=== PATIENT | female | born 1955 | race Caucasian/White ===

== ENCOUNTER → 2020-02-11 12:53 | Outpatient (CLI) | payer MEDICARE, SELFPAY ==
--- NOTE | 2020-02-11 13:00 | XR_ITS ---
PROCEDURE: XR FOOT WT BEARING LT 3V CLINICAL INDICATION: pain COMPARISON: No exams were available for comparison FINDINGS: No fracture or dislocation. No lytic or blastic change. There is normal mineralization. The joint spaces are well-preserved. No significant degenerative/arthritic changes. No erosive changes evident. Other findings:None. IMPRESSION: 1. No acute findings. Unremarkable exam Dictated by: Ajith English 02/11/2020 13:45 Electronically signed by Ajith English in [place] 02/11/2020 13:45
--- NOTE | 2020-02-11 13:00 | XR_ITS ---
PROCEDURE: XR FOOT WT BEARING RT 3V CLINICAL INDICATION: Pain COMPARISON: No exams were available for comparison FINDINGS: Bones: No fracture or dislocation. No lytic or blastic change. There is normal mineralization. Joints: The joint spaces are well-preserved. No significant degenerative/arthritic changes. No erosive changes evident. Other findings:None. IMPRESSION: Normal x-ray exam of the right foot for the patient's age. Dictated by: Ajith English 02/11/2020 13:43 Electronically signed by Ajith English in [facility] 02/11/2020 13:43
== END ==
PROVIDERS: PCP Family Medicine; Visit Provider Podiatrist
DX: M79.672 Pain in left foot (principal); M79.671 Pain in right foot
CPT/HCPCS: 73630

== ENCOUNTER → 2020-02-11 18:51 | Outpatient (CLI) | payer MEDICARE, SELFPAY | PROVIDERS: Visit Provider Podiatrist | DX: S90.851A Superficial foreign body, right foot, initial encounter (principal) | CPT/HCPCS: 87070; 87077; 87186; 87205 ==

== ENCOUNTER → 2020-03-31 14:48 | Outpatient (CLI) | payer MEDICARE, SELFPAY ==
[2020-03-31 14:58] LABS: Basophils # 0.1 K/mm3 (0-0.2); Basophils % 0.4 % (0.1-2.0); Eosinophils # 0.1 K/mm3 (0.0-0.4); Eosinophils % 1.3 % (0.1-12.0); Hematocrit 42.2 % (37.0-47.0); Lymphocytes # 2.2 K/mm3 (0.7-4.5); Lymphocytes % 20.8 % (10-50); Mean Corpuscular HGB Conc 33.2 g/dL (31.8-35.4); Mean Corpuscular Hemoglobin 32.6 pg (27.0-31.2); Mean Corpuscular Volume 98.4 fl (81-99); Monocytes # 0.7 K/mm3 (0.1-1.0); Monocytes % 6.8 % (1.7-9.3); Neutrophils # 7.6 K/mm3 (1.8-7.8); Neutrophils % 70.7 % (37.0-80.0); Platelet Count 245 K/mm3 (142-424); Red Blood Count 4.28 M/mm3 (4.20-5.40); Red Cell Distribution Width 13.7 % (11.5-17.5); White Blood Count 10.7 K/mm3 (4.8-10.8)
[2020-03-31 15:01] LABS: Chloride 106 mmol/L (98-107); Potassium 4.5 mmoL/L (3.5-5.1); Sodium 140 mmol/L (136-145)
[2020-03-31 15:03] LABS: Blood Urea Nitrogen 16 mg/dl (7-17); Estimated Glomerular Filt Rate 45 ml/min (>60); GFR (African American) 55 ML/MIN (>60)
[2020-03-31 15:04] LABS: Alanine Aminotransferase 15 U/L (12-78); Albumin Level 4.2 g/dl (3.5-5.0); Albumin/Globulin Ratio 1.4 (1.1-1.8); Alkaline Phosphatase 85 U/L (38-126); Anion Gap 14.5 mEq/L (5-15); Aspartate Amino Transferase 27 U/L (14-36); Bilirubin,Total 0.5 mg/dl (0.2-1.3); Carbon Dioxide 24 mmol/L (22.0-30.0); Chol/HDL Ratio 2.2 (1-3.5); Cholesterol 177 mg/dl (140-200); Glucose 111 mg/dl (74-100); HDL Cholesterol 79 mg/dl (40-60); Total Protein,Serum 7.2 g/dl (6.3-8.2); Triglycerides 125 mg/dl (30-150); VLDL Cholesterol 25 mg/dL (0-40)
[2020-03-31 15:15] LABS: Direct LDL Cholesterol 68.57 mg/dL (100-129)
[2020-03-31 15:21] LABS: 25-OH Vitamin D, Total 16.4 ng/mL (30-100); Free T4 (Free Thyroxine) 0.48 ng/dl (0.78-2.19)
[2020-03-31 15:34] LABS: Erythrocyte Sedimentation Rate 23 mm/hr (0-30)
[2020-04-02 09:19] LABS: Thyroid Peroxidase Antibodies 353 IU/mL (0-34)
== END ==
PROVIDERS: Visit Provider Emergency Medicine
DX: E03.9 Hypothyroidism, unspecified (principal); E55.9 Vitamin D deficiency, unspecified
CPT/HCPCS: 80053; 80061; 82306; 84439; 84443; 85025; 85651; 86376

== ENCOUNTER → 2020-04-18 11:24 | Outpatient (CLI) | payer MEDICARE, SELFPAY ==
--- NOTE | 2020-04-18 11:24 | US_ITS ---
PROCEDURE: US THYROID CLINICAL INDICATION: hypothyroid COMPARISON: No exams were available for comparison FINDINGS: Right lobe: 1.6cm x 3.0cm x 1.2cm Left lobe: 0.9cm x 2.1cm x 1.2cm Isthmus: Unremarkable Additional findings: The thyroid gland has heterogeneous echogenicity bilaterally. No dominant mass apparent. There is a questionable 5 mm hypoechoic nodule in the lower pole on the right but may be related to the diffuse heterogeneous echogenicity. Not demonstrated well in the sagittal plane. IMPRESSION: Heterogeneous echogenicity of the thyroid bilaterally with a small thyroid gland on both sides. Questionable 5 mm nodule in the right. Stability may be confirmed with six-month follow-up. Dictated by: Julio Simon MD 04/20/2020 09:24 Julio Simon MD in [facility] 04/20/2020 09:24
== END ==
PROVIDERS: PCP Emergency Medicine; Visit Provider Emergency Medicine
DX: E03.9 Hypothyroidism, unspecified (principal)
CPT/HCPCS: 76536

== ENCOUNTER → 2020-04-29 17:14 | Outpatient (CLI) | payer MEDICARE, SELFPAY | PROVIDERS: Visit Provider Podiatrist | DX: L57.0 Actinic keratosis (principal); S90.851D Superficial foreign body, right foot, subsequent encounter | CPT/HCPCS: 87070; 87077; 87186; 87205 ==

== ENCOUNTER → 2020-05-13 17:54 | Outpatient (CLI) | payer MEDICARE, SELFPAY ==
[2020-05-13 19:49] LABS: Thyroid Stimulating Hormone 0.39 uIU/mL (0.465-4.68)
== END ==
PROVIDERS: Visit Provider Emergency Medicine
DX: E78.5 Hyperlipidemia, unspecified (principal); Z79.899 Other long term (current) drug therapy
CPT/HCPCS: 84439; 84443

== ENCOUNTER → 2020-05-16 14:15 | Outpatient (CLI) | payer MEDICARE, SELFPAY ==
--- NOTE | 2020-05-16 14:22 | XR_ITS ---
PROCEDURE: XR SHOULDER RT MIN 2V CLINICAL INDICATION: RT shoulder pain COMPARISON: No exams were available for comparison FINDINGS: No fracture or dislocation. No lytic or blastic change. There is normal mineralization. The joint spaces are well-preserved. No significant degenerative/arthritic changes. No erosive changes evident. Other findings:None. IMPRESSION: No acute findings. Dictated by: Julio Simon MD 05/16/2020 15:19 Julio Simon MD in [facility] 05/16/2020 15:19
== END ==
PROVIDERS: PCP Emergency Medicine; Visit Provider Orthopaedic Surgery
DX: M25.511 Pain in right shoulder (principal)
CPT/HCPCS: 73030

== ENCOUNTER → 2020-05-19 14:24 | Outpatient (CLI) | payer MEDICARE, SELFPAY ==
--- NOTE | 2020-05-19 14:29 | US_ITS ---
PROCEDURE: US EXTREMITY RT LIMITED CLINICAL INDICATION: evaluate presence of foreign body COMPARISON: No exams were available for comparison FINDINGS: There is some soft tissue thickening however, no radiopaque foreign body or fluid collection is evident. IMPRESSION: Mild soft tissue thickening otherwise negative Dictated by: Julio Simon MD 05/19/2020 18:17 Julio Simon MD in [facility] 05/19/2020 18:17
== END ==
PROVIDERS: PCP Emergency Medicine; Visit Provider Podiatrist
DX: S90.851A Superficial foreign body, right foot, initial encounter (principal)
CPT/HCPCS: 76882

== ENCOUNTER → 2020-09-23 17:14 | Outpatient (CLI) | payer MEDICARE, SELFPAY ==
[2020-09-23 20:29] LABS: Benzodiazepines Screen,Urine Negative ng/ml (<200)
[2020-09-23 20:30] LABS: Amphetamine/Metha Screen,Urine Negative ng/ml (<1000); Barbiturates Screen,Urine Negative ng/ml (<200)
[2020-09-23 20:31] LABS: Cannabinoid Screen,Urine Negative ng/ml (<50)
[2020-09-23 20:32] LABS: Cocaine Screen,Urine Negative ng/ml (<300); Methadone Screen,Urine Negative ng/ml (<300)
[2020-09-23 20:33] LABS: Opiate Screen,Urine Negative ng/ml (<300); Phencyclidine Screen,Urine Negative ng/ml (<25)
== END ==
PROVIDERS: Visit Provider Emergency Medicine
DX: M54.2 Cervicalgia (principal); Z79.899 Other long term (current) drug therapy
CPT/HCPCS: 80305

== ENCOUNTER → 2020-11-12 14:43 | Outpatient (CLI) | payer MEDICARE, SELFPAY ==
--- NOTE | 2020-11-12 14:43 | US_ITS ---
PROCEDURE: US THYROID CLINICAL INDICATION: 6 mth f/u COMPARISON: US US THYROID from 04/18/2020 FINDINGS: The right lobe of the thyroid gland measures 2.5 x 1.3 x 1.2 cm. There is heterogeneous echogenicity. An oval 5 x 2 mm isoechoic nodules present along the lower pole unchanged. The left lobe is 2.1 x 0.8 x 1.1 cm with heterogeneous echogenicity. IMPRESSION: Stable appearance of the thyroid gland. No change small right-sided thyroid nodule Dictated by: Julio Simon MD 11/12/2020 15:45 Julio Simon MD in [facility] 11/12/2020 15:45
== END ==
PROVIDERS: PCP Emergency Medicine; Visit Provider Emergency Medicine
DX: E04.1 Nontoxic single thyroid nodule (principal)
CPT/HCPCS: 76536

== ENCOUNTER → 2020-11-18 17:31 | Outpatient (CLI) | payer MEDICARE, SELFPAY ==
[2020-11-18 18:19] LABS: Barbiturates Screen,Urine Negative ng/ml (<200)
[2020-11-18 18:20] LABS: Amphetamine/Metha Screen,Urine Negative ng/ml (<1000); Benzodiazepines Screen,Urine Negative ng/ml (<200)
[2020-11-18 18:21] LABS: Cocaine Screen,Urine Negative ng/ml (<300); Methadone Screen,Urine Negative ng/ml (<300)
[2020-11-18 18:22] LABS: Cannabinoid Screen,Urine Positive ng/ml (<50)
[2020-11-18 18:23] LABS: Opiate Screen,Urine Negative ng/ml (<300); Phencyclidine Screen,Urine Negative ng/ml (<25)
== END ==
PROVIDERS: Visit Provider Emergency Medicine
DX: Z79.899 Other long term (current) drug therapy (principal)
CPT/HCPCS: 80305

== ENCOUNTER → 2021-01-13 17:25 | Outpatient (CLI) | payer MEDICARE, SELFPAY ==
[2021-01-13 19:18] LABS: Opiate Screen,Urine Positive ng/ml (<300)
[2021-01-13 19:19] LABS: Phencyclidine Screen,Urine Negative ng/ml (<25)
[2021-01-13 19:38] LABS: Amphetamine/Metha Screen,Urine Negative ng/ml (<1000)
[2021-01-13 19:39] LABS: Barbiturates Screen,Urine Negative ng/ml (<200); Benzodiazepines Screen,Urine Negative ng/ml (<200)
[2021-01-13 19:40] LABS: Cannabinoid Screen,Urine Positive ng/ml (<50)
[2021-01-13 19:41] LABS: Cocaine Screen,Urine Negative ng/ml (<300)
[2021-01-13 19:42] LABS: Methadone Screen,Urine Negative ng/ml (<300)
== END ==
PROVIDERS: Visit Provider Emergency Medicine
DX: Z79.899 Other long term (current) drug therapy (principal)
CPT/HCPCS: 80305

== ENCOUNTER → 2021-03-10 17:16 | Outpatient (CLI) | payer MEDICARE, SELFPAY ==
[2021-03-10 19:38] LABS: Amphetamine/Metha Screen,Urine Negative ng/ml (<1000)
[2021-03-10 19:39] LABS: Barbiturates Screen,Urine Negative ng/ml (<200); Benzodiazepines Screen,Urine Negative ng/ml (<200)
[2021-03-10 19:40] LABS: Cannabinoid Screen,Urine Positive ng/ml (<50)
[2021-03-10 19:41] LABS: Methadone Screen,Urine Negative ng/ml (<300)
[2021-03-10 20:38] LABS: Opiate Screen,Urine Positive ng/ml (<300); Phencyclidine Screen,Urine Negative ng/ml (<25)
[2021-03-10 20:39] LABS: Cocaine Screen,Urine Negative ng/ml (<300)
== END ==
PROVIDERS: Visit Provider Emergency Medicine
DX: Z79.899 Other long term (current) drug therapy (principal)
CPT/HCPCS: 80305

== ENCOUNTER 2021-05-03 13:20 | Emergency (ER) | payer MEDICARE, SELFPAY ==
[2021-05-03 13:23] VITALS: BP 171/89; PULSE 81; RESP 17; TEMP 36.9; O2SAT 91
--- NOTE | 2021-05-03 13:55 | PC.NURSE ---
pt came into ER via EMS pt had snorted a percocet 30mg while in the car with her adult son pt received nasal an IV narcan from EMS pt awake and alert and oriented , while in the ER pt drowsy but easily awakened. o2 sats were 90% on RA o2 @ 2LPM via cannula o2 sat increased to 98%. after approx 30 min o2 removed and maintaining at 95%. pt is sitting up eating lunch
[2021-05-03 14:24] LABS: Basophils # 0.1 K/mm3 (0-0.2); Basophils % 0.6 % (0.1-2.0); Eosinophils # 0.2 K/mm3 (0.0-0.4); Eosinophils % 1.5 % (0.1-12.0); Hematocrit 43.6 % (37.0-47.0); Hemoglobin 13.8 g/dL (12.2-16.2); Lymphocytes # 1.6 K/mm3 (0.7-4.5); Mean Corpuscular HGB Conc 31.7 g/dL (31.8-35.4); Mean Corpuscular Hemoglobin 31.9 pg (27.0-31.2); Mean Corpuscular Volume 100.8 fl (81-99); Mean Platelet Volume 8.2 fl (7.4-10.4); Monocytes % 6.5 % (1.7-9.3); Neutrophils # 11.8 K/mm3 (1.8-7.8); Neutrophils % 80.5 % (37.0-80.0); Platelet Count 283 K/mm3 (142-424); Red Blood Count 4.33 M/mm3 (4.20-5.40); Red Cell Distribution Width 13.3 % (11.5-17.5); White Blood Count 14.6 K/mm3 (4.8-10.8)
[2021-05-03 14:32] LABS: Anion Gap 13.2 mEq/L (5-15); Blood Urea Nitrogen 20 mg/dl (7-17); Calcium 9.1 mg/dl (8.4-10.2); Carbon Dioxide 26 mmol/L (22.0-30.0); Chloride 107 mmol/L (98-107); Creatinine Clearance Estimated 50 mL/min (50-200); Estimated Glomerular Filt Rate 38 ml/min (>60); GFR (African American) 46 ML/MIN (>60); Glucose 105 mg/dl (74-100); Potassium 5.2 mmoL/L (3.5-5.1); Sodium 141 mmol/L (136-145)
[2021-05-03 14:36] LABS: Acetaminophen < 10 ug/ml (10-30); Salicylate < 1.0 mg/dL (2.0-20.0)
--- NOTE | 2021-05-03 15:42 | HMH.EDGENADL ---
ED Disposition Clinical Impression: Overweight (BMI 25.0-29.9) Overdose of analgesic Qualifiers: Encounter type: initial encounter Injury intent: accidental or unintentional Qualified Code(s): T39.91XA - Poisoning by unspecified nonopioid analgesic, antipyretic and antirheumatic, accidental (unintentional), initial encounter Drug overdose Qualifiers: Encounter type: initial encounter Injury intent: accidental or unintentional Qualified Code(s): T50.901A - Poisoning by unspecified drugs, medicaments and biological substances, accidental (unintentional), initial encounter Hyperlipidemia Qualifiers: Hyperlipidemia type: moderate mixed hyperlipidemia not requiring statin therapy Qualified Code(s): E78.2 - Mixed hyperlipidemia Hypothyroidism Qualifiers: Hypothyroidism type: acquired Qualified Code(s): E03.9 - Hypothyroidism, unspecified Acute cystitis Qualifiers: Hematuria presence: without hematuria Qualified Code(s): N30.00 - Acute cystitis without hematuria Disposition: Home, Self-Care Condition on Discharge: Good Additional Instructions: Please follow up with your primary care physician in 2-3 days for further management. Use your macrobid for uti. Please avoid using any other illicit substances. Please return to the ED for any concerning symptoms such as difficulty breathing, chest pain, heart palpitations, jitteriness or any other concerning symptoms. Prescriptions: Nitrofurantoin Monohyd/M-Cryst [Macrobid 100 mg Capsule] 100 mg PO DAILY #14 cap Transmission Status: Received by [facility] Referrals: Provider,Referral, [Primary Care Provider] - Time of Disposition: 15:25 - Critical Care Critical Care Time: Yes Attestation: On 05/03/21, the high probability of a clinically significant, sudden or life threatening deterioration of the following system(s) required my full and direct attention, intervention and personal management. The time I documented below is in addition to time spent performing reported procedures but includes the following listed in this critical care notation. Total Critical Care Time: 3 Vital system(s) involved:: Respiratory Failure My critical care processes included: Assessment & monitoring of V/S, Initial and Re-exams, Data Review/Interpretation, Coordinating Care, Medication Orders and management, Documentation Medical Decision Making - Medical Records Medical records reviewed: Yes: I reviewed the patient's medical records. - Herb Inquiry Pt receiving controlled substance: No Vital Signs: 05/03/21 13:23 05/03/21 16:40 Temperature 98.4 F 98.2 F Temperature Source Oral Oral Pulse Rate 67 Pulse Rate [Right Radial] 81 Respiratory Rate 17 17 Blood Pressure 120/67 Blood Pressure [Right Arm] 171/89 H Blood Pressure Mean [Right Arm] 116 Blood Pressure Source Automatic Cuff Blood Pressure Source [Right Arm] Automatic Cuff Blood Pressure Position Sitting Blood Pressure Position [Right Arm] Supine 02 Sat by Pulse Oximetry 91 L Oxygen Delivery Method Room Air Room Air - Lab Data Lab results reviewed: Yes: I reviewed the patient's lab results. Lab Results 05/03/21 14:10: WBC 14.6 H, RBC 4.33, Hgb 13.8, Hct 43.6, MCV 100.8 H, MCH 31.9 H, MCHC 31.7 L, RDW 13.3, Plt Count 283, MPV 8.2, Neut % (Auto) 80.5 H, Lymph % (Auto) 11.0, Caroline % (Auto) 6.5, Eos % (Auto) 1.5, Baso % (Auto) 0.6, Neut # (Auto) 11.8 H, Lymph # (Auto) 1.6, Caroline # (Auto) 1.0, Eos # (Auto) 0.2, Baso # (Auto) 0.1 05/03/21 14:10: Sodium 141, Potassium 5.2 H, Chloride 107, Carbon Dioxide 26, Anion Gap 13.2, BUN 20 H, Creatinine 1.40 H, Estimated Creat Clear 50, Estimated GFR 38 L, Est GFR ( Amer) 46 L, Glucose 105 H, Calcium 9.1, Salicylates < 1.0 L, Acetaminophen < 10 L 05/03/21 15:50: Urine Opiates Screen Negative, Urine Methadone Screen Negative, Ur Barbituates Screen Negative, Ur Phencyclidine Scrn Negative, Ur Amphetamines Screen Negative, U Benzodiazepines Scrn Positive H, Urine Cocaine Scr
[2021-05-03 15:59] LABS: Microscopic, Urine URINE MICROSCOPIC (MICROSCOPIC)
[2021-05-03 16:01] LABS: Appearance,Urine CLOUDY (Clear); Bilirubin,Urine Negative (Negative); Blood, Urine TRACE-I (Negative); Color,Urine YELLOW (Yellow); Glucose,Urine (UA) Negative (Negative); Ketones,Urine Negative (Negative); Leukocyte Esterase,Urine 1+ (Negative); Nitrate,Urine Negative (Negative); Protein,Urine 3+ (Negative); Specific Gravity, Urine 1.025 (1.005-1.030); Urobilinogen,Urine 0.2 EU/dl (0.2)
[2021-05-03 16:11] LABS: WBC,Urine 20-50 #/hpf (0-3)
[2021-05-03 16:12] LABS: Bacteria,Urine 4+ /lpf
[2021-05-03 16:18] LABS: Amphetamine/Metha Screen,Urine Negative ng/ml (<1000); Benzodiazepines Screen,Urine Positive ng/ml (<200)
[2021-05-03 16:19] LABS: Barbiturates Screen,Urine Negative ng/ml (<200); Cannabinoid Screen,Urine Positive ng/ml (<50)
[2021-05-03 16:20] LABS: Cocaine Screen,Urine Negative ng/ml (<300)
[2021-05-03 16:21] LABS: Methadone Screen,Urine Negative ng/ml (<300); Opiate Screen,Urine Negative ng/ml (<300)
[2021-05-03 16:22] LABS: Phencyclidine Screen,Urine Negative ng/ml (<25)
[2021-05-03 16:40] VITALS: BP 120/67; PULSE 67; RESP 17; TEMP 36.8; O2SAT 94
== END 2021-05-03 16:40 | disposition home or self-care (01) ==
PROVIDERS: Emergency Provider Student in an Organized Health Care Education/Training Program
DX: H66.92 Otitis media, unspecified, left ear (principal); Z79.899 Other long term (current) drug therapy
CPT/HCPCS: 80048; 80305; 80329; 81001; 85025; 87086; 87088; 87186; 99283

== ENCOUNTER → 2021-05-04 18:40 | Outpatient (CLI) | payer MEDICARE, SELFPAY ==
[2021-05-04 20:12] LABS: Basophils # 0.1 K/mm3 (0-0.2); Basophils % 0.6 % (0.1-2.0); Eosinophils # 0.4 K/mm3 (0.0-0.4); Eosinophils % 4.5 % (0.1-12.0); Hematocrit 46.4 % (37.0-47.0); Hemoglobin 14.3 g/dL (12.2-16.2); Lymphocytes # 2.4 K/mm3 (0.7-4.5); Lymphocytes % 26.4 % (10-50); Mean Corpuscular HGB Conc 30.8 g/dL (31.8-35.4); Mean Corpuscular Hemoglobin 31.9 pg (27.0-31.2); Mean Corpuscular Volume 103.4 fl (81-99); Mean Platelet Volume 8.7 fl (7.4-10.4); Monocytes # 0.8 K/mm3 (0.1-1.0); Monocytes % 9.4 % (1.7-9.3); Neutrophils # 5.3 K/mm3 (1.8-7.8); Neutrophils % 59.2 % (37.0-80.0); Platelet Count 268 K/mm3 (142-424); Red Blood Count 4.48 M/mm3 (4.20-5.40)
[2021-05-04 20:32] LABS: Alanine Aminotransferase 10 U/L (12-78); Albumin Level 3.8 g/dl (3.5-5.0); Albumin/Globulin Ratio 1.2 (1.1-1.8); Alkaline Phosphatase 99 U/L (38-126); Anion Gap 11.7 mEq/L (5-15); Aspartate Amino Transferase 21 U/L (14-36); Bilirubin,Total 0.2 mg/dl (0.2-1.3); Blood Urea Nitrogen 14 mg/dl (7-17); Calcium 9.6 mg/dl (8.4-10.2); Carbon Dioxide 28 mmol/L (22.0-30.0); Chloride 105 mmol/L (98-107); Chol/HDL Ratio 3.1 (1-3.5); Cholesterol 145 mg/dl (140-200); Estimated Glomerular Filt Rate 45 ml/min (>60); GFR (African American) 55 ML/MIN (>60); Globulin 3.2 g/dL (1.3-3.2); Glucose 103 mg/dl (74-100); HDL Cholesterol 47 mg/dl (40-60); Potassium 4.7 mmoL/L (3.5-5.1); Sodium 140 mmol/L (136-145); Triglycerides 194 mg/dl (30-150); VLDL Cholesterol 39 mg/dL (0-40)
[2021-05-04 20:43] LABS: Direct LDL Cholesterol 54.93 mg/dL (100-129)
[2021-05-04 20:48] LABS: Free T4 (Free Thyroxine) 2.12 ng/dl (0.78-2.19)
[2021-05-04 20:57] LABS: Amphetamine/Metha Screen,Urine Negative ng/ml (<1000)
[2021-05-04 20:58] LABS: Barbiturates Screen,Urine Negative ng/ml (<200); Cannabinoid Screen,Urine Positive ng/ml (<50)
[2021-05-04 20:59] LABS: Benzodiazepines Screen,Urine Positive ng/ml (<200)
[2021-05-04 21:00] LABS: Cocaine Screen,Urine Negative ng/ml (<300); Methadone Screen,Urine Negative ng/ml (<300)
[2021-05-04 21:01] LABS: Opiate Screen,Urine Negative ng/ml (<300); Phencyclidine Screen,Urine Negative ng/ml (<25)
[2021-05-04 21:02] LABS: Thyroid Stimulating Hormone 0.17 uIU/mL (0.465-4.68)
[2021-05-04 22:23] LABS: 25-OH Vitamin D, Total 12.9 ng/mL (30-100)
== END ==
PROVIDERS: Visit Provider Emergency Medicine
DX: E66.3 Overweight (principal); E78.5 Hyperlipidemia, unspecified; E55.9 Vitamin D deficiency, unspecified; T50.901A Poisoning by unspecified drugs, medicaments and biological substances, accidental (unintentional), initial encounter; Z79.899 Other long term (current) drug therapy; Z68.28 Body mass index [BMI] 28.0-28.9, adult
CPT/HCPCS: 80053; 80061; 80305; 82306; 84439; 84443; 85025

== ENCOUNTER → 2021-05-11 18:38 | Outpatient (CLI) | payer MEDICARE, SELFPAY ==
[2021-05-11 18:41] LABS: Microscopic, Urine URINE MICROSCOPIC (MICROSCOPIC)
[2021-05-11 19:25] LABS: Appearance,Urine SL CLOUDY (Clear); Bilirubin,Urine Negative (Negative); Blood, Urine TRACE-L (Negative); Color,Urine YELLOW (Yellow); Glucose,Urine (UA) Negative (Negative); Ketones,Urine Negative (Negative); Leukocyte Esterase,Urine TRACE (Negative); Nitrate,Urine POSITIVE (Negative); Protein,Urine 2+ (Negative); Urobilinogen,Urine 0.2 EU/dl (0.2)
[2021-05-11 19:54] LABS: RBC,Urine Occasional #/hpf (0-3)
[2021-05-11 19:55] LABS: Bacteria,Urine 4+ /lpf
== END ==
PROVIDERS: Visit Provider Nurse Practitioner Obstetrics & Gynecology
DX: N39.0 Urinary tract infection, site not specified (principal)
CPT/HCPCS: 81001; 87086; 87088; 87186

== ENCOUNTER → 2021-06-03 18:43 | Outpatient (CLI) | payer MEDICARE, SELFPAY ==
[2021-06-03 23:31] LABS: Amphetamine/Metha Screen,Urine Negative ng/ml (<1000)
[2021-06-03 23:32] LABS: Barbiturates Screen,Urine Negative ng/ml (<200); Benzodiazepines Screen,Urine Negative ng/ml (<200)
[2021-06-03 23:33] LABS: Cannabinoid Screen,Urine Positive ng/ml (<50); Cocaine Screen,Urine Negative ng/ml (<300)
[2021-06-03 23:34] LABS: Methadone Screen,Urine Negative ng/ml (<300)
[2021-06-03 23:35] LABS: Opiate Screen,Urine Negative ng/ml (<300); Phencyclidine Screen,Urine Negative ng/ml (<25)
== END ==
PROVIDERS: Visit Provider Emergency Medicine
DX: Z79.899 Other long term (current) drug therapy (principal)
CPT/HCPCS: 80305

== ENCOUNTER → 2021-07-29 17:51 | Outpatient (CLI) | payer MEDICARE, SELFPAY ==
[2021-07-29 19:50] LABS: Amphetamine/Metha Screen,Urine Negative ng/ml (<1000)
[2021-07-29 19:51] LABS: Barbiturates Screen,Urine Negative ng/ml (<200); Benzodiazepines Screen,Urine Negative ng/ml (<200)
[2021-07-29 19:52] LABS: Cannabinoid Screen,Urine Positive ng/ml (<50)
[2021-07-29 19:53] LABS: Cocaine Screen,Urine Negative ng/ml (<300); Methadone Screen,Urine Negative ng/ml (<300)
[2021-07-29 19:54] LABS: Opiate Screen,Urine Negative ng/ml (<300)
[2021-07-29 19:55] LABS: Phencyclidine Screen,Urine Negative ng/ml (<25)
== END ==
PROVIDERS: Visit Provider Emergency Medicine
DX: M25.559 Pain in unspecified hip (principal); Z79.899 Other long term (current) drug therapy
CPT/HCPCS: 80305

== ENCOUNTER → 2021-11-03 11:53 | Outpatient (CLI) | payer MEDICARE, SELFPAY ==
[2021-11-03 19:33] LABS: Amphetamine/Metha Screen,Urine Negative ng/ml (<1000)
[2021-11-03 19:34] LABS: Barbiturates Screen,Urine Negative ng/ml (<200)
[2021-11-03 19:35] LABS: Benzodiazepines Screen,Urine Negative ng/ml (<200); Cannabinoid Screen,Urine Positive ng/ml (<50)
[2021-11-03 19:36] LABS: Cocaine Screen,Urine Negative ng/ml (<300)
[2021-11-03 19:37] LABS: Methadone Screen,Urine Negative ng/ml (<300)
[2021-11-03 19:38] LABS: Opiate Screen,Urine Positive ng/ml (<300); Phencyclidine Screen,Urine Negative ng/ml (<25)
== END ==
PROVIDERS: PCP Emergency Medicine; Visit Provider Emergency Medicine
DX: G89.29 Other chronic pain (principal)
CPT/HCPCS: 80305

== ENCOUNTER → 2021-12-30 15:00 | Outpatient (CLI) | payer MEDICARE, SELFPAY ==
[2021-12-30 13:53] LABS: Phencyclidine Screen,Urine Negative ng/ml (<25)
[2021-12-30 13:59] LABS: Amphetamine/Metha Screen,Urine Negative ng/ml (<1000)
[2021-12-30 14:00] LABS: Barbiturates Screen,Urine Negative ng/ml (<200)
[2021-12-30 14:01] LABS: Benzodiazepines Screen,Urine Negative ng/ml (<200); Cannabinoid Screen,Urine Positive ng/ml (<50)
[2021-12-30 14:02] LABS: Cocaine Screen,Urine Negative ng/ml (<300); Methadone Screen,Urine Negative ng/ml (<300)
[2021-12-30 14:03] LABS: Opiate Screen,Urine Negative ng/ml (<300)
== END ==
PROVIDERS: PCP Emergency Medicine; Visit Provider Emergency Medicine
DX: T50.901A Poisoning by unspecified drugs, medicaments and biological substances, accidental (unintentional), initial encounter (principal); Z79.899 Other long term (current) drug therapy
CPT/HCPCS: 80305

== ENCOUNTER → 2022-01-25 14:30 | Outpatient (CLI) | payer MEDICARE, SELFPAY ==
--- NOTE | 2022-01-25 14:42 | XR_ITS ---
FINAL REPORT CLINICAL HISTORY: hip pain x yrs, worsened recently. NKT FINDINGS: 2 views of the right hip and an AP pelvis were obtained. There is no acute fracture or dislocation. The joint spaces are intact. There are no soft tissue abnormalities. IMPRESSION: No acute process. Reviewed, Interpreted and Dictated by Dilshad Byers MD Transcribed by Donis Nj Authenticated and . [facility]
--- NOTE | 2022-01-25 14:42 | XR_ITS ---
FINAL REPORT CLINICAL HISTORY: Rt sided LBP x yrs, worsened recently FINDINGS: Five views were obtained. There is posterior and interbody fusion of L4-L5 and L5-S1. There is no acute fracture. There is mild lumbar scoliosis convex to the right. There is no malalignment. There is moderate disc space narrowing at L1-L2, L2-L3, and L3-L4. IMPRESSION: Postoperative and degenerative changes. Reviewed, Interpreted and Dictated by Dilshad Byers MD Transcribed by Donis Nj Authenticated and [facility]
== END ==
PROVIDERS: PCP Emergency Medicine; Visit Provider Orthopaedic Surgery
DX: M54.9 Dorsalgia, unspecified (principal); M25.551 Pain in right hip; M54.50 Low back pain, unspecified
CPT/HCPCS: 72100; 73502

== ENCOUNTER → 2022-02-11 15:55 | Outpatient (CLI) | payer MEDICARE, SELFPAY ==
--- NOTE | 2022-02-11 16:00 | MM_ITS ---
PROCEDURE INFORMATION: Exam: Bilateral Screening 3D Mammography Exam date and time: 02/11/2022 3:54 PM Age: 66 years old Clinical indication: Screening examination TECHNIQUE: Imaging protocol: Bilateral Screening tomosynthesis and 2D mammography including computer-aided detection (CAD) when performed. COMPARISON: [facility] DIGITAL MAMM-SCREEN BILATERAL 08/28/2012 1:41 PM FINDINGS: MAMMOGRAPHY: Breast composition: There are scattered areas of fibroglandular density. Mass: None. Architectural distortion: No new or suspicious architectural distortion. Calcifications: No new or suspicious calcifications are present Asymmetric density: No new or suspicious asymmetric density is present Skin thickening: None. Axillary adenopathy: None. IMPRESSION: No mammographic evidence of malignancy. Recommend annual screening mammography unless otherwise clinically indicated. ASSESSMENT: BI-RADS category 1: Negative
== END ==
PROVIDERS: PCP Emergency Medicine; Visit Provider Emergency Medicine
DX: Z12.31 Encounter for screening mammogram for malignant neoplasm of breast (principal)
CPT/HCPCS: 77063; 77067

== ENCOUNTER 2022-03-02 14:00 | Outpatient (RCR) | payer MEDICARE, SELFPAY ==
--- NOTE | 2022-01-06 09:40 | HMH.PTOPEV ---
PT Outpatient Evaluation Rehab PT Outpatient Evaluation Start: 01/06/22 09:24 Freq: Status: Active Protocol: Document 01/06/22 09:24 RACHANA (Rec: 01/06/22 09:39 COOKIECONSUELO [id number]) Electronically Signed By Hosea Balderrama, PT 01/06/22 09:24 Outpatient Therapy Subjective History Subjective History Patient is a 66 year old female presenting to outpatient PT with reports of 4 years ago of insidious onset . Symptoms consistent with R hip OA. No recent imaging to report. Comorbidities include hx of LS fusion, HTN, HL and COPD. Chief Complaint Pain,Stiff,Weakness Symptom Type Dull Symptoms Relieved By Rest/Positioning,Prescription Meds Symptoms Aggravated By Standing,Physical Activity, Walking Prior Functional Limitations None Current Functional Limitations Housework,Standing,Squatting, Walking Symptom Description Constant but Variable Level of pain today (0-10) 6 Pain scale - at its best (0-10) 1 Pain scale - at its worst (0-10) 9 Hip/Knee Eval Gait Observation General Gait Pattern Observation Antalgic Gait,Decrease Weight Bear (R) Assistive Device Assistive Devices None / NA Palpation Tenderness right Knee Palpation Overall Comment anterolateral hip 2/4 Hip Palpation Findings Tenderness MMT Hip Flexion Strength Grade 4- Good- Hip Abduction Strength Grade 4 Good Hip Adduction Strength Grade 4 Good Hip Extension Strength Grade 4- Good- Hip External Rotation Strength Grade 4 Good Hip Internal Rotation Strength Grade 4- Good- Knee Extension Strength Grade 4 Good Knee Flexion Strength Grade 4 Good ROM Hip Flexion w/Knee Flexed Passive Range 87 of Motion (degrees) Hip Flexion w/Knee Extended Passive 48 Range of Motion (degrees) Hip Abduction Passive Range of Motion ( 42 degrees) Hip Extension Passive Range of Motion ( 7 degrees) Hip External Rotation Passive Range of WNL Motion (degrees) Hip Internal Rotation Passive Range of 11 Motion (degrees) Hip ROM Limitations Soft Tissue Tightness Knee ROM Reason Not Measured Within Functional Limits Special Tests Hip Fortino Test Positive Right Hip Piriformis Test Positive Right Fredrick Test Positive Outpatient Therapy Assessment Impairments Problems/Impairmments Palp
--- NOTE | 2022-02-04 15:02 | HMH.RHREAS ---
Rehab Reassessment Rehab OP Re-assessment Start: 02/04/22 14:54 Freq: Status: Active Protocol: Document 02/04/22 14:54 RACHANA (Rec: 02/04/22 15:01 RACHANA [id number]) Electronically Signed By Hosea Balderrama, PT 02/04/22 14:54 Rehab Re-assessment Subjective Subjective Patient reports 30% improvement since start of care. Objective Objective Notes AROM: hip flx knee straight 64 deg; hip flx knee bent 94; R hip IR 32; R hip ER WNL; add/ abd/ext WFL MMT: 4+/5 grossly for all hip/ knee mm Pain: 4/10 today; 6/10 at worst over past week. Neuro: WNL Assessment Progress Assessment Progressing as Expected Assessment Notes Patient has been see in PT for 4 treatment visits to date. Objective improvements as noted above. Patient would benefit from continuing with skilled PT services in order to address functional limitations with all prolonged standing, ambulatory and household activities. Patient goals met STG 2 Goals Not Met All others Revised Goals NA Plan Plan Continue with current POC. Frequency of Therapy 2x/week Duration of therapy 4 weeks. Time and Billing Re-Eval Time 16 Re-Eval Billing Units 1 PHYSICIAN CERTIFICATION: I certify the specified therapy services for Jocelyn Clark are required, authorized, and reviewed every 30 days.
== END 2022-03-02 15:00 | disposition home or self-care (01) ==
LOC: PT 14:00
PROVIDERS: PCP Emergency Medicine; Visit Provider Emergency Medicine
DX: M25.551 Pain in right hip (principal)
CPT/HCPCS: 97010; 97014; 97033; 97035; 97110; 97163; 97164; G0283

== ENCOUNTER 2022-03-24 13:53 | Outpatient (RCR) | payer MEDICARE, SELFPAY ==
--- NOTE | 2022-03-24 14:54 | HMH.PTOPEV ---
PT Outpatient Evaluation Rehab PT Outpatient Evaluation Start: 03/24/22 14:34 Freq: Status: Active Protocol: Document 03/24/22 14:37 RACHANA (Rec: 03/24/22 14:54 RACHANA [id number]) E-signed By Hosea Balderrama, PT Outpatient Therapy Subjective History Subjective History Patient is a 66 year old female presenting to outpatient PT with reports of 4 years ago of insidious onset . Symptoms have progressively gotten worse over the past 2 months. Patient previously had some improvement with PT. Symptoms consistent with R hip OA. No recent imaging to report. Comorbidities include hx of LS fusion, HTN, HL and COPD. [ End ] Chief Complaint Pain,Stiff Symptom Type Throb Symptoms Relieved By Rest/Positioning,OTC Meds, Prescription Meds Symptoms Aggravated By Sitting,Physical Activity, Walking Prior Functional Limitations None Current Functional Limitations Housework,Standing,Walking Symptom Description Constant but Variable Level of pain today (0-10) 3 Pain scale - at its best (0-10) 3 Pain scale - at its worst (0-10) 10 Hip/Knee Eval Gait Observation General Gait Pattern Observation Antalgic Gait,Decrease Weight Bear (R) Assistive Device Assistive Devices None / NA Palpation Tenderness right Knee Palpation Finding Tenderness Knee Palpation Overall Comment greater trochanter 3/4 Hip Palpation Findings Tenderness MMT Hip Flexion Strength Grade 4 Good Hip Abduction Strength Grade 4 Good Hip Adduction Strength Grade 4 Good Hip Extension Strength Grade 4 Good Hip External Rotation Strength Grade 4 Good Hip Internal Rotation Strength Grade 4 Good Knee Extension Strength Grade 5 Normal Knee Flexion Strength Grade 5 Normal ROM Hip Flexion w/Knee Flexed Active Range 94 of Motion (degrees) Hip Flexion w/Knee Extended Active Range 90 of Motion (degrees) Hip Abduction Active Range of Motion ( WNL degrees) Hip Extension Active Range of Motion ( 6 degrees) Hip External Rotation Active Range of WNL Motion (degrees) Hip Internal Rotation Active Range of 8 Motion (degrees) Knee ROM Reason Not Measured Within Functional Limits Special Tests Hip Fortino T
== END 2022-03-24 15:00 | disposition home or self-care (01) ==
LOC: PT 13:53
PROVIDERS: PCP Emergency Medicine; Visit Provider Orthopaedic Surgery
DX: M70.61 Trochanteric bursitis, right hip (principal)
CPT/HCPCS: 97163

== ENCOUNTER → 2022-03-26 08:26 | Outpatient (CLI) | payer MEDICARE, SELFPAY ==
[2022-03-26 19:23] LABS: Amphetamine/Metha Screen,Urine Negative ng/ml (<1000); Barbiturates Screen,Urine Negative ng/ml (<200)
[2022-03-26 19:24] LABS: Benzodiazepines Screen,Urine Negative ng/ml (<200)
[2022-03-26 19:25] LABS: Cannabinoid Screen,Urine Positive ng/ml (<50)
[2022-03-26 19:26] LABS: Cocaine Screen,Urine Negative ng/ml (<300)
[2022-03-26 19:27] LABS: Methadone Screen,Urine Negative ng/ml (<300); Opiate Screen,Urine Positive ng/ml (<300)
[2022-03-26 19:28] LABS: Phencyclidine Screen,Urine Negative ng/ml (<25)
== END ==
PROVIDERS: PCP Emergency Medicine; Visit Provider Emergency Medicine
DX: Z79.899 Other long term (current) drug therapy (principal)
CPT/HCPCS: 80305

== ENCOUNTER 2022-04-30 21:59 | Emergency (ER) | payer MEDICARE, SELFPAY ==
[2022-04-30 22:00] VITALS: BP 197/101; PULSE 60; RESP 18; TEMP 36.6; O2SAT 93
--- NOTE | 2022-04-30 22:20 | HMH.EDGENADL ---
Discharge Plan Disposition Patient Disposition: Home, Self-Care Prescriptions Prescriptions: New prednisone [prednisone] 20 mg tablet 20 mg PO BID Qty: 10 0RF cephalexin [cephalexin] 500 mg capsule 500 mg PO TID Qty: 30 0RF lisinopril 5 mg tablet 5 mg PO DAILY Qty: 30 0RF cephalexin 500 mg capsule 500 mg PO TID Qty: 30 0RF No Action olanzapine 5 mg tablet 5 mg PO DAILY Rx Instructions: 1/2 tab AM 1 tab @HS fluoxetine 20 mg capsule 20 mg PO DAILY Myrbetriq 50 mg tablet extended release 24 hr 50 mg PO DAILY promethazine 25 mg tablet 25 mg PO TID PRN (Reason: nausea and vomiting) Qty: 30 0RF triamcinolone acetonide 0.1 % ointment 1 applic TOPICAL BID Qty: 80 0RF mirtazapine 30 mg tablet 30 mg PO estradiol [Estrace] 0.01 % (0.1 mg/gram) cream 0.5 g VAGINAL .twice weekly Qty: 42.5 2RF Rx Instructions: for 14 days duloxetine 30 mg capsule,delayed release(DR/EC) 30 mg PO buspirone 5 mg tablet 5 mg PO bupropion HCl 150 mg tablet extended release 24 hr 150 mg PO hydrochlorothiazide 12.5 mg tablet 12.5 mg PO QAM Qty: 30 0RF gabapentin 300 mg capsule 600 mg PO BID Qty: 120 1RF hydrocodone-acetaminophen 7.5-325 mg tablet 1 tab PO QID Qty: 120 0RF atorvastatin 40 mg tablet See Rx Instructions .ROUTE .COMPLEX Qty: 90 0RF Dose Instruction: TAKE ONE TABLET BY MOUTH EVERY DAY Rx Instructions: TAKE ONE TABLET BY MOUTH EVERY DAY metoprolol tartrate 100 mg tablet See Rx Instructions .ROUTE .COMPLEX Qty: 180 2RF Dose Instruction: TAKE 1 TABLET BY MOUTH TWICE DAILY Rx Instructions: TAKE 1 TABLET BY MOUTH TWICE DAILY levothyroxine 112 mcg tablet See Rx Instructions .ROUTE .COMPLEX Qty: 90 0RF Dose Instruction: TAKE 1 TABLET BY MOUTH ONCE DAILY Rx Instructions: TAKE 1 TABLET BY MOUTH ONCE DAILY pantoprazole 40 mg tablet,delayed release (DR/EC) See Rx Instructions .ROUTE .COMPLEX Qty: 90 2RF Dose Instruction: TAKE ONE TABLET BY MOUTH EVERY DAY Rx Instructions: TAKE ONE TABLET BY MOUTH EVERY DAY albuterol sulfate 90 mcg/actuation HFA aerosol inhaler See Rx Instructions .ROUTE .COMPLEX Qty: 8.5 1RF Dose Instruction: INHALE 2 PUFFS EVERY 4 TO 6 HOURS NEEDED FOR SHORTNESS OF BREATH OR WHEEZING Rx Instructions: INHALE 2 PUFFS EVERY 4 TO 6 HOURS NEEDED FOR SHORTNESS OF BREATH OR WHEEZING Referrals Follow up/Referrals: Alvino Gerard MD [Primary Care Provider] - See instructions Clinical Impressions Clinical Impression: Hypertensive urgency, Acute UTI (urinary tract infection), Acute hip pain Instructions Patient Instructions: DI for Urinary Tract Infection (UTI) Discharge ED Provider: Alvino Gerard General Adult HPI General Chief complaint: PAIN Stated complaint: High B/P, Left hip Pain no injury Time Seen by Provider: 04/30/22 22:20 Mode of Arrival: Ambulatory Source of Information: Patient Limitations: No Limitations Description of Symptoms (Recalled from ER Triage Doc. by RN): pt states was having hot flashes and check her blood pressure and it was high conitune to check throughout day and remained high. pt also c/o lt hip pain that started today. pt denies any trauma or fall History of Present Illness HPI narrative: elevated bp today and no chest pain and has lt hip pain w/o trauma or fever and no rash Onset (ago): hour(s) Location: lower extremity Severity: moderate Associated symptoms: denies other symptoms Related Data Home Medications Medication Instructions Recorded Confirmed fluoxetine 20 mg capsule 20 mg PO DAILY 02/11/20 03/26/22 olanzapine 5 mg tablet 5 mg PO DAILY 02/11/20 03/26/22 mirabegron 50 mg tablet,extended 50 mg PO DAILY 03/31/20 03/26/22 release 24 hr (Myrbetriq) mirtazapine 30 mg tablet 30 mg PO 06/10/21 03/26/22 duloxetine 30 mg capsule,delayed 30 mg PO
--- NOTE | 2022-04-30 22:22 | XR_ITS ---
PROCEDURE INFORMATION: Exam: XR Left Hip Exam date and time: 04/30/2022 10:35 PM Age: 66 years old Clinical indication: Hip pain; Left hip; Additional info: Pain in left hip that started today, no known injury, no HX of hip fracture or hip surgery, HX of low back surgery TECHNIQUE: Imaging protocol: Radiologic exam of the Left hip. Views: 2 or 3 views hip with pelvis when performed. COMPARISON: CR XR LUMBAR SPINE 2-3V 01/25/2022 2:45 PM FINDINGS: Bones/joints: No evidence of acute fracture or dislocation. No significant degenerative change in either hip. Changes of prior lower lumbar fusion procedure noted. Soft tissues: Unremarkable. IMPRESSION: No acute abnormality of the left hip.
[2022-04-30 22:30] VITALS: BP 199/94; PULSE 58; O2SAT 97
[2022-04-30 22:40] LABS: Chloride 103 mmol/L (98-107); Potassium 3.8 mmoL/L (3.5-5.1); Sodium 139 mmol/L (136-145)
[2022-04-30 22:42] LABS: Alanine Aminotransferase 12 U/L (12-78); Alkaline Phosphatase 94 U/L (38-126); Aspartate Amino Transferase 26 U/L (14-36); Bilirubin,Total 0.3 mg/dl (0.2-1.3); Blood Urea Nitrogen 22 mg/dl (7-17); Creatinine Clearance Estimated 50 mL/min (50-200); Estimated Glomerular Filt Rate 38 ml/min (>60); GFR (African American) 46 ML/MIN (>60)
[2022-04-30 22:43] LABS: Albumin/Globulin Ratio 1.2 (1.1-1.8); Anion Gap 16.8 mEq/L (5-15); Calcium 9.2 mg/dl (8.4-10.2); Carbon Dioxide 23 mmol/L (22.0-30.0); Globulin 3.3 g/dL (1.3-3.2); Glucose 105 mg/dl (74-100); Total Protein,Serum 7.3 g/dl (6.3-8.2)
[2022-04-30 22:45] LABS: Basophils # 0.1 K/mm3 (0-0.2); Basophils % 1.3 % (0.1-2.0); Eosinophils # 0.2 K/mm3 (0.0-0.4); Eosinophils % 1.9 % (0.1-12.0); Hematocrit 44.9 % (37.0-47.0); Hemoglobin 14.2 g/dL (12.2-16.2); Lymphocytes # 2.6 K/mm3 (0.7-4.5); Mean Corpuscular HGB Conc 31.7 g/dL (31.8-35.4); Mean Corpuscular Hemoglobin 31.9 pg (27.0-31.2); Mean Corpuscular Volume 100.6 fl (81-99); Mean Platelet Volume 8.1 fl (7.4-10.4); Monocytes # 0.8 K/mm3 (0.1-1.0); Monocytes % 7.8 % (1.7-9.3); Neutrophils # 6.9 K/mm3 (1.8-7.8); Neutrophils % 64.9 % (37.0-80.0); Platelet Count 279 K/mm3 (142-424); Red Blood Count 4.46 M/mm3 (4.20-5.40); Red Cell Distribution Width 13.5 % (11.5-17.5); White Blood Count 10.6 K/mm3 (4.8-10.8)
[2022-04-30 22:49] LABS: C-Reactive Protein 3.9 mg/L (0-4)
--- NOTE | 2022-04-30 22:52 | CT_ITS ---
PROCEDURE INFORMATION: Exam: CT Left Lower Extremity With Contrast, Hip Exam date and time: 04/30/2022 11:15 PM Age: 66 years old Clinical indication: Pain; Hip; Left; Additional info: Left hip pain, no known injury TECHNIQUE: Imaging protocol: CT of the Left lower extremity with intravenous contrast was performed. Exam focused on the hip. Radiation optimization: All CT scans at this facility use at least one of these dose optimization techniques: automated exposure control; mA and/or kV adjustment per patient size (includes targeted exams where dose is matched to clinical indication); or iterative reconstruction. Contrast material: ISOVUE; Contrast volume: 75 ml; Contrast route: IV; COMPARISON: CR Hip L 04/30/2022 10:35 PM FINDINGS: Bones/joints: Pedicle screw fixation is noted in the lower lumbar spine. Lucency surrounds the pedicle screws at S1, potentially reflecting loosening. Graft in the interbody space at L5-S1 is not incorporated. Normal left sacroiliac joint. Intact left hemipelvis. Normal appearance of the left proximal femur and hip. Soft tissues: Normal. Vasculature: Mild arterial calcification. Bowel: Mild sigmoid diverticulosis. Urinary bladder: Gas noted in the lumen of the urinary bladder. Reproductive: Prior hysterectomy. IMPRESSION: 1. Normal appearance of the left hip and proximal femur. Normal left hemipelvis. 2. Gas in the urinary bladder suggests infection with a gas-forming organism or recent instrumentation. 3. Prior lumbar fusion procedure. There appears to be loosening of the pedicle screws at S1, and poor incorporation of the interbody graft.
[2022-04-30 23:00] VITALS: BP 204/106; PULSE 57; O2SAT 95
--- NOTE | 2022-04-30 23:30 | PC.NURSE ---
PT BACK FROM CT
[2022-04-30 23:33] VITALS: BP 198/98; PULSE 65; O2SAT 96
[2022-04-30 23:45] VITALS: BP 181/89; PULSE 64; O2SAT 96
[2022-04-30 23:53] LABS: Erythrocyte Sedimentation Rate 41 mm/hr (0-30)
[2022-05-01] VITALS (7 sets, daily range): BP systolic 159–198; BP diastolic 86–100; PULSE 57–67; RESP 16; TEMP 36.6; O2SAT 92–97
[2022-05-01 02:27] LABS: Microscopic, Urine URINE MICROSCOPIC (MICROSCOPIC)
[2022-05-01 02:28] LABS: Appearance,Urine SL CLOUDY (Clear); Bilirubin,Urine Negative (Negative); Blood, Urine TRACE-I (Negative); Color,Urine YELLOW (Yellow); Glucose,Urine (UA) Negative (Negative); Ketones,Urine Negative (Negative); Leukocyte Esterase,Urine 1+ (Negative); Nitrate,Urine Negative (Negative); Protein,Urine 2+ (Negative); Specific Gravity, Urine 1.015 (1.005-1.030); Urobilinogen,Urine 0.2 EU/dl (0.2)
[2022-05-01 02:30] LABS: Bacteria,Urine 1+ /lpf; WBC,Urine 20-50 #/hpf (0-3)
== END 2022-05-01 03:34 | disposition home or self-care (01) ==
PROVIDERS: Emergency Provider Emergency Medicine; PCP Emergency Medicine
DX: N39.0 Urinary tract infection, site not specified (principal); I16.0 Hypertensive urgency; Z79.899 Other long term (current) drug therapy; Z72.0 Tobacco use
CPT/HCPCS: 73502; 73701; 80053; 81001; 85025; 85651; 86140; 87086; 87088; 87186; 96365; 96367; 96375; 99284; J0696; Q9967

== ENCOUNTER → 2022-07-21 16:19 | Outpatient (CLI) | payer MEDICARE, SELFPAY ==
[2022-07-21 16:43] LABS: Barbiturates Screen,Urine Negative ng/ml (<200)
[2022-07-21 16:44] LABS: Amphetamine/Metha Screen,Urine Negative ng/ml (<1000); Benzodiazepines Screen,Urine Negative ng/ml (<200)
[2022-07-21 16:45] LABS: Cannabinoid Screen,Urine Positive ng/ml (<50)
[2022-07-21 16:46] LABS: Cocaine Screen,Urine Negative ng/ml (<300); Phencyclidine Screen,Urine Negative ng/ml (<25)
[2022-07-21 16:47] LABS: Methadone Screen,Urine Negative ng/ml (<300); Opiate Screen,Urine Positive ng/ml (<300)
== END ==
PROVIDERS: PCP Emergency Medicine; Visit Provider Emergency Medicine
DX: M54.16 Radiculopathy, lumbar region (principal)
CPT/HCPCS: 80305

== ENCOUNTER → 2022-09-09 14:34 | Outpatient (CLI) | payer MEDICARE, SELFPAY ==
--- NOTE | 2022-09-09 14:35 | CT_ITS ---
FINAL REPORT CLINICAL HISTORY: . currently smokes 1 pk per day for 60 years, no cancer hx FINDINGS: CTDI vol (mGy): 2.90 DLP: 96.[address] images of the chest were obtained using the low-dose protocol for screening. There is no evidence of mediastinal or hilar mass or adenopathy. No axillary mass or adenopathy is identified. On the lung window images, there is moderate emphysema. There is mild atelectasis or scarring at the left lung base. Within the right upper lobe are several nodules. Nodule medially measures 2 mm on image 23, laterally measures 3 mm on image 29 and anteriorly measures 3 mm on image 40. There are several calcified granulomas. IMPRESSION: Multiple pulmonary nodules in the right upper lobe measuring up to 3 mm. Lung RADS category 2. Recommend 12 month followup low-dose CT for further evaluation. Reviewed, Interpreted and Dictated by Scar Kruger III, MD Transcribed by Valerie Reilly Authenticated and [facility]
== END ==
PROVIDERS: PCP Emergency Medicine; Visit Provider Emergency Medicine
DX: Z87.891 Personal history of nicotine dependence (principal); Z12.2 Encounter for screening for malignant neoplasm of respiratory organs
CPT/HCPCS: 71271

== ENCOUNTER → 2022-11-09 23:18 | Outpatient (CLI) | payer MEDICARE, SELFPAY ==
[2022-11-09 20:01] LABS: Opiate Screen,Urine Negative ng/ml (<300)
[2022-11-09 20:02] LABS: Methadone Screen,Urine Negative ng/ml (<300); Phencyclidine Screen,Urine Negative ng/ml (<25)
[2022-11-09 20:03] LABS: Cannabinoid Screen,Urine Positive ng/ml (<50); Cocaine Screen,Urine Negative ng/ml (<300)
[2022-11-09 20:04] LABS: Amphetamine/Metha Screen,Urine Negative ng/ml (<1000)
[2022-11-09 20:05] LABS: Barbiturates Screen,Urine Negative ng/ml (<200); Benzodiazepines Screen,Urine Negative ng/ml (<200)
== END ==
PROVIDERS: PCP Emergency Medicine; Visit Provider Emergency Medicine
DX: M54.16 Radiculopathy, lumbar region (principal); Z79.899 Other long term (current) drug therapy
CPT/HCPCS: 80305

== ENCOUNTER → 2023-01-05 14:15 | Outpatient (CLI) | payer MEDICARE, SELFPAY ==
[2023-01-05 19:28] LABS: Benzodiazepines Screen,Urine Negative ng/ml (<200)
[2023-01-05 19:29] LABS: Amphetamine/Metha Screen,Urine Negative ng/ml (<1000); Barbiturates Screen,Urine Negative ng/ml (<200)
[2023-01-05 19:30] LABS: Cannabinoid Screen,Urine Positive ng/ml (<50)
[2023-01-05 19:31] LABS: Cocaine Screen,Urine Negative ng/ml (<300); Methadone Screen,Urine Negative ng/ml (<300)
[2023-01-05 19:32] LABS: Opiate Screen,Urine Positive ng/ml (<300)
[2023-01-05 19:33] LABS: Phencyclidine Screen,Urine Negative ng/ml (<25)
== END ==
PROVIDERS: PCP Emergency Medicine; Visit Provider Emergency Medicine
DX: Z79.899 Other long term (current) drug therapy (principal)
CPT/HCPCS: 80305

== ENCOUNTER 2023-01-18 07:31 | Emergency (ER) | payer MEDICARE, SELFPAY ==
[2023-01-18] VITALS (8 sets, daily range): BP systolic 114–203; BP diastolic 60–88; PULSE 54–64; RESP 16–22; TEMP 36.7–36.8; O2SAT 96–100; BMI 26.7
--- NOTE | 2023-01-18 07:57 | CT_ITS ---
PROCEDURE INFORMATION: Exam: CT Abdomen And Pelvis Without Contrast Exam date and time: 01/18/2023 8:30 AM Age: 67 years old Clinical indication: Abdominal pain; Additional info: General abd pain, n/v/d TECHNIQUE: Imaging protocol: Computed tomography of the abdomen and pelvis without contrast. Radiation optimization: All CT scans at this facility use at least one of these dose optimization techniques: automated exposure control; mA and/or kV adjustment per patient size (includes targeted exams where dose is matched to clinical indication); or iterative reconstruction. REPORTING DATA: Count of CT and Cardiac NM exams in prior 12 months: This patient has received 2 known CTs and 0 known cardiac nuclear medicine studies in the 12 months prior to the current study. COMPARISON: CR XR HIP LT 2-3V W/PELVIS 04/30/2022 10:35 PM FINDINGS: Lungs: Calcified 6 mm granuloma is seen in the posterolateral right lower lobe.The visualized portions of the lung bases are otherwise normal. Liver: Normal. No mass. Gallbladder and bile ducts: There is at least 1 calcified gallstone in the dependent neck of the gallbladder on axial image 25. There is no evidence of cholecystitis or biliary dilatation. Pancreas: The pancreas is normal. Spleen: The spleen demonstrates punctate calcifications, consistent with remote granulomatous organism exposure. The spleen is otherwise normal. Adrenal glands: The adrenal glands are normal. Kidneys and ureters: There is a simple appearing 15 mm cyst protruding from the upper pole of the right kidney, no follow up is indicated. Kidneys are otherwise unremarkable. Stomach and bowel: Mild diverticulosis is present in the sigmoid and descending colon. Appendix: A normal appendix is identified. Intraperitoneal space: Unremarkable. No free air. No significant fluid collection. Vasculature: The vasculature demonstrates diffuse moderate atherosclerotic calcification. Lymph nodes: Unremarkable. No enlarged lymph nodes. Urinary bladder: The bladder is normal. Gas in the bladder presumably indicates recent catheterization. Reproductive: There has been a hysterectomy. No adnexal cysts or masses are identified. Bones/joints: A right convex spinal curve is observed. There is pedicle screw fixation from L4 through S1 with apparent calcification of the central discs at these levels as well as T12-L1. There are degenerative changes of the upper lumbar spine. There is mild spinal stenosis greatest at L3-L4 above the fusion. There is moderate foraminal stenosis at L5-S1. Soft tissues: There is a fat-containing umbilical hernia. IMPRESSION: 1. There is at least 1 calcified gallstone in the dependent neck of the gallbladder on axial image 25. There is no evidence of cholecystitis or biliary dilatation. 2. There is a simple appearing 15 mm cyst protruding from the upper pole of the right kidney, no follow up is indicated. Kidneys are otherwise unremarkable. 3. A right convex spinal curve is observed. There is pedicle screw fixation from L4 through S1 with apparent calcification of the central discs at these levels as well as T12-L1. There are degenerative changes of the upper lumbar spine. There is mild spinal stenosis greatest at L3-L4 above the fusion. There is moderate foraminal stenosis at L5-S1. 4. The bladder is normal. Gas in the bladder presumably indicates recent catheterization. COMMENTS: Consistent with the [employer]'s Incidental Findings Committee white paper (J Am [employer]iol 2018): Any incidental renal lesion less than 1 cm or classified as too small to characterize, or any incidental cystic renal lesion characterized as simple-appearing, is likely benign. No follow-up im
--- NOTE | 2023-01-18 07:57 | PC.NURSE ---
pt up to restroom
[2023-01-18 08:01] LABS: Microscopic, Urine URINE MICROSCOPIC (MICROSCOPIC)
[2023-01-18 08:05] LABS: Basophils % 0.2 % (0.1-2.0); Eosinophils # 0.1 K/mm3 (0.0-0.4); Eosinophils % 0.6 % (0.1-12.0); Hematocrit 44.9 % (37.0-47.0); Hemoglobin 14.4 g/dL (12.2-16.2); Lymphocytes # 1.9 K/mm3 (0.7-4.5); Lymphocytes % 13.4 % (10-50); Mean Corpuscular Hemoglobin 31.2 pg (27.0-31.2); Mean Corpuscular Volume 97.4 fl (81-99); Mean Platelet Volume 8.2 fl (7.4-10.4); Monocytes # 0.7 K/mm3 (0.1-1.0); Monocytes % 5.1 % (1.7-9.3); Neutrophils # 11.4 K/mm3 (1.8-7.8); Neutrophils % 80.8 % (37.0-80.0); Platelet Count 278 K/mm3 (142-424); Red Blood Count 4.61 M/mm3 (4.20-5.40); Red Cell Distribution Width 14.2 % (11.5-17.5); White Blood Count 14.1 K/mm3 (4.8-10.8)
[2023-01-18 08:11] LABS: Appearance,Urine CLEAR (Clear); Blood, Urine 2+ (Negative); Color,Urine YELLOW (Yellow); Glucose,Urine (UA) Negative (Negative); Ketones,Urine TRACE (Negative); Leukocyte Esterase,Urine Negative (Negative); Nitrate,Urine Negative (Negative); Protein,Urine 3+ (Negative); Specific Gravity, Urine 1.025 (1.005-1.030); Urobilinogen,Urine 0.2 EU/dl (0.2)
[2023-01-18 08:17] LABS: Chloride 98 mmol/L (98-107); Potassium 3.3 mmoL/L (3.5-5.1); Sodium 135 mmol/L (136-145)
[2023-01-18 08:20] LABS: Alanine Aminotransferase 23 U/L (12-78); Albumin Level 4.2 g/dl (3.5-5.0); Albumin/Globulin Ratio 1.2 (1.1-1.8); Alkaline Phosphatase 108 U/L (38-126); Aspartate Amino Transferase 39 U/L (14-36); Bilirubin,Total 0.5 mg/dl (0.2-1.3); Blood Urea Nitrogen 24 mg/dl (7-17); Creatinine Clearance Estimated 41 mL/min (50-200); Estimated Glomerular Filt Rate 35 ml/min (>60); GFR (African American) 42 ML/MIN (>60); Globulin 3.5 g/dL (1.3-3.2); Total Protein,Serum 7.7 g/dl (6.3-8.2)
[2023-01-18 08:21] LABS: Calcium 8.9 mg/dl (8.4-10.2); Glucose 112 mg/dl (74-100)
--- NOTE | 2023-01-18 08:22 | HMH.EDGENADL ---
Discharge Plan Disposition Patient Disposition: Home, Self-Care Condition: Fair Prescriptions Prescriptions: New dicyclomine 20 mg tablet 20 mg PO QID PRN (Reason: abdominal pain) Qty: 20 0RF ondansetron 4 mg tablet,disintegrating 4 mg PO TID PRN (Reason: nausea and vomiting) 5 Days Qty: 14 0RF No Action olanzapine 5 mg tablet 5 mg PO DAILY Rx Instructions: 1/2 tab AM 1 tab @HS fluoxetine 20 mg capsule 20 mg PO DAILY albuterol sulfate 90 mcg/actuation HFA aerosol inhaler See Rx Instructions .ROUTE .COMPLEX Qty: 8.5 1RF Dose Instruction: INHALE 2 PUFFS EVERY 4 TO 6 HOURS NEEDED FOR SHORTNESS OF BREATH OR WHEEZING Rx Instructions: INHALE 2 PUFFS EVERY 4 TO 6 HOURS NEEDED FOR SHORTNESS OF BREATH OR WHEEZING budesonide-formoterol [Symbicort] 80-4.5 mcg/actuation HFA aerosol inhaler 1 puff inhalation BID Qty: 10.2 2RF ipratropium-albuterol 0.5 mg-3 mg(2.5 mg base)/3 mL solution for nebulization 3 ml inhalation Q4-6H PRN (Reason: shortness of breath or wheezing) Qty: 180 1RF mupirocin 2 % ointment 1 applic topical BID Qty: 22 0RF buspirone 10 mg tablet 10 mg PO gabapentin 300 mg capsule 600 mg PO BID Qty: 120 1RF oxycodone-acetaminophen 10-325 mg tablet 1 tab PO QID Qty: 120 0RF mirtazapine 30 mg tablet 30 mg PO duloxetine 30 mg capsule,delayed release(DR/EC) 30 mg PO atorvastatin 40 mg tablet See Rx Instructions .ROUTE .COMPLEX Qty: 90 0RF Dose Instruction: TAKE ONE TABLET BY MOUTH EVERY DAY Rx Instructions: TAKE ONE TABLET BY MOUTH EVERY DAY levothyroxine 112 mcg tablet See Rx Instructions .ROUTE .COMPLEX Qty: 90 0RF Dose Instruction: TAKE 1 TABLET BY MOUTH ONCE DAILY Rx Instructions: TAKE 1 TABLET BY MOUTH ONCE DAILY metoprolol tartrate 100 mg tablet See Rx Instructions .ROUTE .COMPLEX Qty: 180 1RF Dose Instruction: TAKE 1 TABLET BY MOUTH TWICE DAILY Rx Instructions: TAKE 1 TABLET BY MOUTH TWICE DAILY pantoprazole 40 mg tablet,delayed release (DR/EC) See Rx Instructions .ROUTE .COMPLEX Qty: 90 0RF Dose Instruction: TAKE ONE TABLET BY MOUTH EVERY DAY Rx Instructions: TAKE ONE TABLET BY MOUTH EVERY DAY lisinopril 5 mg tablet See Rx Instructions .ROUTE .COMPLEX Qty: 30 0RF Dose Instruction: TAKE 1 TABLET BY MOUTH ONCE DAILY Rx Instructions: TAKE 1 TABLET BY MOUTH ONCE DAILY hydrochlorothiazide 12.5 mg tablet See Rx Instructions .ROUTE .COMPLEX Qty: 30 0RF Dose Instruction: TAKE 1 TABLET BY MOUTH EVERY MORNING Rx Instructions: TAKE 1 TABLET BY MOUTH EVERY MORNING promethazine 25 mg tablet 25 mg PO Q8H PRN (Reason: nausea and vomiting) Qty: 30 0RF Referrals Follow up/Referrals: Alvino Gerard MD [Primary Care Provider] - See instructions Activity Restrictions/Add. Instructions Additional Instructions/Restrictions: Clear liquids for next 24 hours Clinical Impressions Clinical Impression: Gastroenteritis Instructions Patient Instructions: DI for Acute Abdominal Pain Discharge ED Provider: Goldy Cheek General Adult HPI General Chief complaint: Abdominal Pain Stated complaint: Vomiting, abd pain, diarrhea Time Seen by Provider: 01/18/23 09:00 Mode of Arrival: Ambulatory Source of Information: Patient and Relative Limitations: No Limitations Description of Symptoms (Recalled from ER Triage Doc. by RN): 67 yo F presents to ED with c/o n/v/d. son states that pt has been having symptoms ongoing for 3 days. unable to keep liquid or solids down. pt reports feeling weak. pain in abdomen, pt states has been generalized but right now is epigastric area. History of Present Illness HPI narrative: This is a 67-year-old white female presents with 3 days of nausea vomiting and loose stool as well as midepigastric pain the pain is described as crampy intermittent nonprovoked self-limited.
[2023-01-18 08:27] LABS: Anion Gap 17.3 mEq/L (5-15); Carbon Dioxide 23 mmol/L (22.0-30.0)
[2023-01-18 08:30] LABS: Bilirubin,Urine Negative (Negative); Yeast,Urine 4+ /lpf
[2023-01-18 08:31] LABS: Bacteria,Urine Trace /lpf; Squamous Epithelial Cell,Urine Occasional #/hpf (0-5); WBC,Urine 20-50 #/hpf (0-3)
[2023-01-18 09:38] LABS: Lactic Acid 1.5 mmol/L (0.7-2.1)
== END 2023-01-18 10:51 | disposition home or self-care (01) ==
PROVIDERS: Emergency Provider Emergency Medicine; PCP Emergency Medicine
DX: K52.9 Noninfective gastroenteritis and colitis, unspecified (principal); R10.13 Epigastric pain; I10 Essential (primary) hypertension; E78.00 Pure hypercholesterolemia, unspecified; F17.200 Nicotine dependence, unspecified, uncomplicated
CPT/HCPCS: 74176; 80053; 81001; 83605; 85025; 87086; 87088; 87186; 96361; 96374; 99284; 99285; J2405

== ENCOUNTER 2023-01-27 16:26 | Inpatient (IN) | payer MEDICARE, SELFPAY ==
[2023-01-27] VITALS (12 sets, daily range): BP systolic 178–208; BP diastolic 80–119; PULSE 56–87; RESP 16–19; TEMP 36.6–36.8; O2SAT 97–100; BMI 26.7; BMI 24.7
--- NOTE | 2023-01-27 17:03 | CT_ITS ---
PROCEDURE INFORMATION: Exam: CT Abdomen Without Contrast Exam date and time: 01/27/2023 5:28 PM Age: 67 years old Clinical indication: Abdominal pain; Generalized; Additional info: Abd pain TECHNIQUE: Imaging protocol: Computed tomography of the abdomen without contrast. Radiation optimization: All CT scans at this facility use at least one of these dose optimization techniques: automated exposure control; mA and/or kV adjustment per patient size (includes targeted exams where dose is matched to clinical indication); or iterative reconstruction. REPORTING DATA: Count of CT and Cardiac NM exams in prior 12 months: This patient has received 3 known CTs and 0 known cardiac nuclear medicine studies in the 12 months prior to the current study. COMPARISON: CT ABDOMEN PELVIS WO CON 01/18/2023 8:30 AM FINDINGS: Lungs: Chronic granulomatous calcifications at the lung bases, stable. Liver: Normal. No mass. Gallbladder and bile ducts: Stable small solitary gallstone dependent portion the gallbladder which is otherwise unremarkable. Bile ducts not dilated. Pancreas: Unremarkable. Main pancreatic duct is not significantly dilated. Spleen: There are scattered calcified granulomas within the spleen, longstanding, otherwise spleen is unremarkable. Adrenal glands: Normal. No mass. Kidneys and ureters: Stable small benign-appearing right renal cyst otherwise kidneys are unremarkable. No calculi or hydronephrosis detected. Stomach and bowel: Scattered diverticuli large bowel without evidence of diverticulitis. Intraperitoneal space: Unremarkable. No free air. No significant fluid collection. Vasculature: Unremarkable. No abdominal aortic aneurysm. Lymph nodes: Unremarkable. No enlarged lymph nodes. Urinary bladder: There is a mild amount of intravesicular air within the nondependent portion of the urinary bladder decreased in extent from previous exam that may be due to recent catheterization or incompetent urethra. No compelling evidence of emphysematous cystitis or colovesical fistula. Reproductive: Uterus has been removed. Bones/joints: Prior spinal instrumentation lower lumbar spine with multilevel degenerative changes stable in appearance from prior study. No acute bony abnormalities. Soft tissues: Unremarkable. IMPRESSION: 1. Mild amount of intravesicular air within the urinary bladder decreased in extent from previous exam etiology of which is unclear as discussed above. 2. Cholelithiasis without evidence of acute cholecystitis. 3. Sigmoid diverticulosis without evidence of acute diverticulitis. 4. Additional chronic findings as above.
[2023-01-27 17:13] LABS: Basophils # 0.1 K/mm3 (0-0.2); Basophils % 0.5 % (0.1-2.0); Eosinophils # 0.1 K/mm3 (0.0-0.4); Eosinophils % 0.9 % (0.1-12.0); Hematocrit 46.1 % (37.0-47.0); Hemoglobin 14.8 g/dL (12.2-16.2); Lymphocytes # 2.2 K/mm3 (0.7-4.5); Lymphocytes % 17.8 % (10-50); Mean Corpuscular HGB Conc 32.1 g/dL (31.8-35.4); Mean Corpuscular Volume 96.7 fl (81-99); Mean Platelet Volume 8.1 fl (7.4-10.4); Monocytes # 0.4 K/mm3 (0.1-1.0); Monocytes % 3.5 % (1.7-9.3); Neutrophils # 9.5 K/mm3 (1.8-7.8); Neutrophils % 77.4 % (37.0-80.0); Platelet Count 441 K/mm3 (142-424); Red Blood Count 4.77 M/mm3 (4.20-5.40); Red Cell Distribution Width 14.1 % (11.5-17.5); White Blood Count 12.2 K/mm3 (4.8-10.8)
[2023-01-27 17:14] LABS: Chloride 107 mmol/L (98-107); Potassium 3.4 mmoL/L (3.5-5.1); Sodium 141 mmol/L (136-145)
[2023-01-27 17:16] LABS: Alanine Aminotransferase 22 U/L (12-78); Alkaline Phosphatase 104 U/L (38-126); Anion Gap 18.4 mEq/L (5-15); Aspartate Amino Transferase 33 U/L (14-36); Bilirubin,Total 0.4 mg/dl (0.2-1.3); Blood Urea Nitrogen 23 mg/dl (7-17); Carbon Dioxide 19 mmol/L (22.0-30.0); Creatinine Clearance Estimated 32 mL/min (50-200); Estimated Glomerular Filt Rate 26 ml/min (>60); GFR (African American) 32 ML/MIN (>60); Lipase 159 U/L (23-300)
[2023-01-27 17:17] LABS: Albumin Level 4.4 g/dl (3.5-5.0); Albumin/Globulin Ratio 1.1 (1.1-1.8); Calcium 9.5 mg/dl (8.4-10.2); Glucose 154 mg/dl (74-100); Total Protein,Serum 8.4 g/dl (6.3-8.2)
--- NOTE | 2023-01-27 17:26 | PC.NURSE ---
PT GOING TO CT
--- NOTE | 2023-01-27 18:14 | PC.NURSE ---
Pt complains of continued nausea. MD notified. New order received.
[2023-01-27 18:24] LABS: Microscopic, Urine URINE MICROSCOPIC (MICROSCOPIC)
[2023-01-27 18:35] LABS: Appearance,Urine CLEAR (Clear); Bilirubin,Urine Negative (Negative); Blood, Urine 1+ (Negative); Color,Urine YELLOW (Yellow); Glucose,Urine (UA) Negative (Negative); Ketones,Urine Negative (Negative); Leukocyte Esterase,Urine Negative (Negative); Nitrate,Urine Negative (Negative); Protein,Urine 3+ (Negative); Urobilinogen,Urine 0.2 EU/dl (0.2)
[2023-01-27 18:51] LABS: RBC,Urine Occasional #/hpf (0-3); WBC,Urine Occasional #/hpf (0-3)
--- NOTE | 2023-01-27 19:07 | PC.NURSE ---
MD notified of patient's htn. V/O for 20mg IV of Hydralazine IVP
--- NOTE | 2023-01-27 19:16 | PC.NURSE ---
Report handed off to daycare teacher
--- NOTE | 2023-01-27 20:00 | PC.NURSE ---
pt vomiting, requesting more medications. Dr. Hamilton notified
--- NOTE | 2023-01-27 20:55 | ECG_ITS ---
APPROVED REPORT Exam: Resting ECG HR:76 bpm ECG Measurements Heart Rate 76 AXES NJ 153 P 236 QRSd 139 QRS 69 QT 409 T -60 QTc 439 Conclusion ECTOPIC ATRIAL RHYTHM INTRAVENTRICULAR CONDUCTION DELAY [130+ ms QRS DURATION] ANTEROLATERAL MYOCARDIAL INFARCTION , OF INDETERMINATE AGE [40+ ms Q WAVE IN I/aVL/V3-V6] ABNORMAL ECG UNCONFIRMED REPORT Electronically signed by : Richard Curiel MD 01/28/2023 17:16:00
[2023-01-27 21:15] LABS: Troponin I 0.01 ng/ml (0.00-0.034)
--- NOTE | 2023-01-27 21:18 | HMH.EDABDPAI ---
Discharge Plan Disposition Patient Disposition: Admitted Condition: Fair Prescriptions Prescriptions: No Action olanzapine 5 mg tablet 5 mg PO DAILY Rx Instructions: 1/2 tab AM 1 tab @HS fluoxetine 20 mg capsule 20 mg PO DAILY albuterol sulfate 90 mcg/actuation HFA aerosol inhaler See Rx Instructions .ROUTE .COMPLEX Qty: 8.5 1RF Dose Instruction: INHALE 2 PUFFS EVERY 4 TO 6 HOURS NEEDED FOR SHORTNESS OF BREATH OR WHEEZING Rx Instructions: INHALE 2 PUFFS EVERY 4 TO 6 HOURS NEEDED FOR SHORTNESS OF BREATH OR WHEEZING budesonide-formoterol [Symbicort] 80-4.5 mcg/actuation HFA aerosol inhaler 1 puff inhalation BID Qty: 10.2 2RF ipratropium-albuterol 0.5 mg-3 mg(2.5 mg base)/3 mL solution for nebulization 3 ml inhalation Q4-6H PRN (Reason: shortness of breath or wheezing) Qty: 180 1RF mupirocin 2 % ointment 1 applic topical BID Qty: 22 0RF buspirone 10 mg tablet 10 mg PO gabapentin 300 mg capsule 600 mg PO BID Qty: 120 1RF oxycodone-acetaminophen 10-325 mg tablet 1 tab PO QID Qty: 120 0RF mirtazapine 30 mg tablet 30 mg PO duloxetine 30 mg capsule,delayed release(DR/EC) 30 mg PO atorvastatin 40 mg tablet See Rx Instructions .ROUTE .COMPLEX Qty: 90 0RF Dose Instruction: TAKE ONE TABLET BY MOUTH EVERY DAY Rx Instructions: TAKE ONE TABLET BY MOUTH EVERY DAY levothyroxine 112 mcg tablet See Rx Instructions .ROUTE .COMPLEX Qty: 90 0RF Dose Instruction: TAKE 1 TABLET BY MOUTH ONCE DAILY Rx Instructions: TAKE 1 TABLET BY MOUTH ONCE DAILY metoprolol tartrate 100 mg tablet See Rx Instructions .ROUTE .COMPLEX Qty: 180 1RF Dose Instruction: TAKE 1 TABLET BY MOUTH TWICE DAILY Rx Instructions: TAKE 1 TABLET BY MOUTH TWICE DAILY pantoprazole 40 mg tablet,delayed release (DR/EC) See Rx Instructions .ROUTE .COMPLEX Qty: 90 0RF Dose Instruction: TAKE ONE TABLET BY MOUTH EVERY DAY Rx Instructions: TAKE ONE TABLET BY MOUTH EVERY DAY lisinopril 5 mg tablet See Rx Instructions .ROUTE .COMPLEX Qty: 30 0RF Dose Instruction: TAKE 1 TABLET BY MOUTH ONCE DAILY Rx Instructions: TAKE 1 TABLET BY MOUTH ONCE DAILY hydrochlorothiazide 12.5 mg tablet See Rx Instructions .ROUTE .COMPLEX Qty: 30 0RF Dose Instruction: TAKE 1 TABLET BY MOUTH EVERY MORNING Rx Instructions: TAKE 1 TABLET BY MOUTH EVERY MORNING promethazine 25 mg tablet 25 mg PO Q8H PRN (Reason: nausea and vomiting) Qty: 30 0RF nitrofurantoin monohyd/m-cryst [Macrobid] 100 mg capsule 100 mg PO BID 7 Days Qty: 14 0RF Rx Instructions: must administer with a meal/food dicyclomine 20 mg tablet 20 mg PO QID PRN (Reason: abdominal pain) Qty: 20 0RF ondansetron 4 mg tablet,disintegrating 4 mg PO TID PRN (Reason: nausea and vomiting) 5 Days Qty: 14 0RF Referrals Follow up/Referrals: Alvino Gerard MD [Primary Care Provider] - See instructions Clinical Impressions Clinical Impression: Intractable nausea and vomiting, Acute epigastric pain Acute renal failure Qualifiers: Acute renal failure type: with acute renal cortical necrosis Qualified Code(s): N17.1 - Acute kidney failure with acute cortical necrosis Instructions Patient Instructions: DI for Acute Abdominal Pain Discharge ED Provider: Denise Hamilton Abdominal Pain HPI General Chief Complaint: Abdominal Pain Stated Complaint: vomiting, abd pain Time Seen by Provider: 01/27/23 21:00 Mode of Arrival: Ambulatory Source of Information: Patient Limitations: No Limitations Description of Symptoms (Recalled from ER Triage Doc. by RN): Presents to ED with complaints of abd pain. +V/D this AM. Patient states she was admitted 1 1/2 week ago for same symptoms. Patient further reports she finished her ABX 3 days ago. History of Present Illness HPI narrative: Patient is a 67-year male who i
--- NOTE | 2023-01-27 21:25 | PC.NURSE ---
Dr. Hamilton s/w Hospitalist for admission
[2023-01-27 21:28] LABS: Coronavirus 19, PCR Not Detected (NotDetected); Influenza A, PCR Not Detected (NotDetected); Influenza B, PCR Not Detected (NotDetected)
--- NOTE | 2023-01-27 21:28 | PC.NURSE ---
House notified for admission
--- NOTE | 2023-01-27 21:33 | PC.NURSE ---
Registration notified of admission. Pt assigned to room 213 for LOLIS to the hospitalist. OBS
--- NOTE | 2023-01-27 21:45 | PC.NURSE ---
hospitalist at bedside
--- NOTE | 2023-01-27 21:47 | PC.NURSE ---
Asst. Pt. with bedpan
--- NOTE | 2023-01-27 22:04 | EXP.HP ---
History of Present Illness *Admission Date: 01/27/23 *Reason for visit:: n/v/d. intermittent abdominal pain *History of present illness: This is a 67-year female with PMHx of COPD, hypertension, hyperlipidemia, hypothyroidism, GERD, CKD, chronic pain, anxiety and depression with tobacco dependence, who is seen at ER due to intermittent epigastric pain. Patient stated she has been having epigastric pain for the past 2 days that comes and go. As well patient is having intractable nausea, vomiting and diarrhea that has increased today, and there is nothing in the patient's past tried that helped improve symptoms. Patient denied any history of gallstones or pancreatitis. No fevers or chills no urgency frequency no burning urination. Patient has history of acid with history of peptic ulcer disease. She has had a colonoscopy and endoscopy in the past. Patient is a longstanding smoker however. At ER initial evaluation included CT of the abdomen with concerning of cholelithiasis without cholecystitis. Patient seems to be severely dehydrated. Findings discussed with the ER doctor. Admitted for further management. [facility] Disclaimer: The information contained in this section may have been updated after the patient was seen, as this information can be updated by other users. Medical History (Updated 01/27/23 @ 23:15 by Erika Abel RN) High cholesterol History of chest pain Hypertension Hypothyroid Pneumonia Urinary tract infection Surgical History (Updated 01/27/23 @ 23:15 by Erika Abel RN) Tubal ligation status Family History (Updated 01/27/23 @ 23:15 by Erika Abel RN) Other No significant family history Social History (Updated 01/27/23 @ 23:15 by Erika Abel RN) Smoking Status: Current every day smoker alcohol intake: never substance use type: denies use current occupational status: retired Travel in the last 8 weeks: None household members: family housing: house Review of Systems Review of Systems Review of systems:: pertinent systems reviewed and negative unless documented below Meds Home Medications and Allergies Home Medications Medication Instructions Recorded Confirmed Type fluoxetine 20 mg capsule 20 mg PO DAILY Antidepressant 02/11/20 01/28/23 History olanzapine 5 mg tablet 2.5 mg PO BID antipsychotic 02/11/20 01/28/23 History mirtazapine 30 mg tablet 30 mg PO DAILY antidepressant 06/10/21 01/28/23 History duloxetine 30 mg capsule,delayed 30 mg PO BID Antidepressant 07/29/21 01/28/23 History release ipratropium 0.5 mg-albuterol 3 mg 3 ml inhalation Q4-6H PRN 07/21/22 01/28/23 Rx (2.5 mg base)/3 mL nebulization shortness of breath or wheezing soln #180 mL promethazine 25 mg tablet 25 mg PO Q8H PRN nausea and 01/10/23 01/28/23 Rx vomiting #30 tabs ondansetron 4 mg disintegrating 4 mg PO TID PRN nausea and 01/18/23 01/28/23 Rx tablet vomiting 5 days #14 tabs albuterol sulfate 90 mcg/actuation See Rx Instructions .Route 01/28/23 01/28/23 History aerosol inhaler .COMPLEX PRN COPD atorvastatin 40 mg tablet 40 mg PO DAILY Cholesterol 01/28/23 01/28/23 History budesonide-formoterol HFA 80 1 puff inhalation BID Copd 01/28/23 01/28/23 History mcg-4.5 mcg/actuation aerosol inhaler (Symbicort) buspirone 15 mg tablet 15 mg PO BID Anxiety 01/28/23 01/28/23 History dicyclomine 20 mg tablet 20 mg PO QID PRN Abdominal Pain 01/28/23 01/28/23 History gabapentin 300 mg capsule 600 mg PO BID Pain 01/28/23 01/28/23 History hydrochlorothiazide 12.5 mg tablet 12.5 mg PO DAILY Diuretic 01/28/23 01/28/23 History levothyroxine 112 mcg tablet 112 mcg PO DAILY Thyroid 01/28/23 01/28/23 History lisinopril 5 mg tablet 5 mg PO DAILY Blood pressure 01/28/23 01/28/23 History metoprolol tartrate 100 mg tablet 100 mg PO BID Blood pressure 01/28/23 01/28/23 History mupirocin 2 % topical ointment 1 applic topical BID Antibiotic 01/28/23 01/28/23 History nitrofurantoin 100 m
--- NOTE | 2023-01-27 22:21 | PC.NURSE ---
Pt arrived to floor via stretcher @ [id number]
[2023-01-28] VITALS (11 sets, daily range): BP systolic 112–211; BP diastolic 48–115; PULSE 50–95; RESP 18; TEMP 36.5–37.2; O2SAT 96–100; BMI 24.7
[2023-01-28 00:18] LABS: Troponin I 0.12 ng/ml (0.00-0.034)
--- NOTE | 2023-01-28 03:16 | ECG_ITS ---
APPROVED REPORT Exam: Resting ECG HR:71 bpm ECG Measurements Heart Rate 71 AXES AR 132 P 62 QRSd 86 QRS 63 QT 416 T 78 QTc 438 Conclusion SINUS RHYTHM POSSIBLE LEFT ATRIAL ENLARGEMENT [-0.1mV P-WAVE IN V1/V2] NONSPECIFIC ST & T-WAVE ABNORMALITY BORDERLINE ECG UNCONFIRMED REPORT Electronically signed by : Richard Curiel MD 01/28/2023 17:15:38
[2023-01-28 03:50] LABS: Troponin I 0.21 ng/ml (0.00-0.034)
[2023-01-28 06:26] LABS: Alanine Aminotransferase 14 U/L (12-78); Albumin Level 3.5 g/dl (3.5-5.0); Albumin/Globulin Ratio 1.1 (1.1-1.8); Alkaline Phosphatase 81 U/L (38-126); Anion Gap 12.4 mEq/L (5-15); Aspartate Amino Transferase 23 U/L (14-36); Bilirubin,Total 0.3 mg/dl (0.2-1.3); Blood Urea Nitrogen 27 mg/dl (7-17); Carbon Dioxide 20 mmol/L (22.0-30.0); Chloride 110 mmol/L (98-107); Chol/HDL Ratio 6.2 (1-3.5); Cholesterol 277 mg/dl (140-200); Creatinine Clearance Estimated 28 mL/min (50-200); Estimated Glomerular Filt Rate 25 ml/min (>60); GFR (African American) 30 ML/MIN (>60); Globulin 3.1 g/dL (1.3-3.2); Glucose 103 mg/dl (74-100); HDL Cholesterol 45 mg/dl (40-60); Potassium 3.4 mmoL/L (3.5-5.1); Sodium 139 mmol/L (136-145); Total Protein,Serum 6.6 g/dl (6.3-8.2); Triglycerides 206 mg/dl (30-150); VLDL Cholesterol 41 mg/dL (0-40)
[2023-01-28 06:29] LABS: Basophils % 0.2 % (0.1-2.0); Eosinophils % 0.1 % (0.1-12.0); Hematocrit 43.1 % (37.0-47.0); Hemoglobin 13.9 g/dL (12.2-16.2); Lymphocytes # 2.2 K/mm3 (0.7-4.5); Lymphocytes % 16.4 % (10-50); Mean Corpuscular HGB Conc 32.2 g/dL (31.8-35.4); Mean Corpuscular Volume 96.3 fl (81-99); Mean Platelet Volume 7.8 fl (7.4-10.4); Monocytes # 0.6 K/mm3 (0.1-1.0); Monocytes % 4.7 % (1.7-9.3); Neutrophils # 10.4 K/mm3 (1.8-7.8); Neutrophils % 78.6 % (37.0-80.0); Platelet Count 349 K/mm3 (142-424); Red Blood Count 4.47 M/mm3 (4.20-5.40); Red Cell Distribution Width 14.2 % (11.5-17.5); White Blood Count 13.2 K/mm3 (4.8-10.8)
[2023-01-28 06:37] LABS: Direct LDL Cholesterol 147.07 mg/dL (100-129)
[2023-01-28 06:39] LABS: Magnesium 0.8 mg/dl (1.6-2.3)
--- NOTE | 2023-01-28 07:37 | EXP.SURG.CON ---
History of Present Illness *Admission Date: 01/27/23 *Reason for visit:: Recent abdominal pain with nausea/vomiting/diarrhea; gallstone *History of present illness: This is a 67-year-old female seen in consultation from the primary service after being evaluated in the emergency department for abdominal pain and nausea/vomiting. She also reports recent history of diarrhea. She was also evaluated in the emergency department on January 18 with similar symptomatology and diagnosed with likely viral enteritis . Evaluation on both occasions included a CT scan that did reveal evidence of small/stable gallstone. No evidence of cholecystitis was noted. No evidence of biliary obstruction was noted. She states that she feels a little bit better right now . No fevers. No jaundice. Forwarded from admission H&P: This is a 67-year female with PMHx of COPD, hypertension, hyperlipidemia, hypothyroidism, GERD, CKD, chronic pain, anxiety and depression with tobacco dependence, who is seen at ER due to intermittent epigastric pain. Patient stated she has been having epigastric pain for the past 2 days that comes and go. As well patient is having intractable nausea, vomiting and diarrhea that has increased today, and there is nothing in the patient's past tried that helped improve symptoms. Patient denied any history of gallstones or pancreatitis. No fevers or chills no urgency frequency no burning urination. Patient has history of acid with history of peptic ulcer disease. She has had a colonoscopy and endoscopy in the past. Patient is a longstanding smoker however. At ER initial evaluation included CT of the abdomen with concerning of cholelithiasis without cholecystitis. Patient seems to be severely dehydrated. Findings discussed with the ER doctor. Admitted for further management. [facility] Disclaimer: The information contained in this section may have been updated after the patient was seen, as this information can be updated by other users. Medical History (Updated 01/27/23 @ 23:15 by Erika Abel RN) High cholesterol History of chest pain Hypertension Hypothyroid Pneumonia Urinary tract infection Surgical History (Updated 01/27/23 @ 23:15 by Erika Abel RN) Tubal ligation status Family History (Updated 01/27/23 @ 23:15 by Erika Abel RN) No significant family history Social History (Updated 01/27/23 @ 23:15 by Erika Abel RN) Smoking Status: Current every day smoker alcohol intake: never substance use type: denies use current occupational status: retired Travel in the last 8 weeks: None household members: family housing: house Meds Home Medications and Allergies Home Medications Medication Instructions Recorded Confirmed Type fluoxetine 20 mg capsule 20 mg PO DAILY 02/11/20 01/05/23 History olanzapine 5 mg tablet 5 mg PO DAILY 02/11/20 01/05/23 History mirtazapine 30 mg tablet 30 mg PO 06/10/21 01/05/23 History atorvastatin 40 mg tablet See Rx Instructions .Route 07/08/21 01/05/23 Rx .COMPLEX #90 tabs duloxetine 30 mg capsule,delayed 30 mg PO 07/29/21 01/05/23 History release albuterol sulfate 90 mcg/actuation See Rx Instructions .Route 07/21/22 01/05/23 Rx aerosol inhaler .COMPLEX #8.5 grams budesonide-formoterol HFA 80 1 puff inhalation BID #10.2 grams 07/21/22 01/05/23 Rx mcg-4.5 mcg/actuation aerosol inhaler (Symbicort) ipratropium 0.5 mg-albuterol 3 mg 3 ml inhalation Q4-6H PRN 07/21/22 01/05/23 Rx (2.5 mg base)/3 mL nebulization shortness of breath or wheezing soln #180 mL mupirocin 2 % topical ointment 1 applic topical BID #22 grams 09/15/22 01/05/23 Rx buspirone 10 mg tablet 10 mg PO 11/09/22 01/05/23 History pantoprazole 40 mg tablet,delayed See Rx Instructions .Route 11/22/22 01/05/23 Rx release .COMPLEX #90 tabs oxycodone-acetaminophen 10 mg-325 1 tab PO QID #120 tabs 01/05/23 01/05/23 Rx mg tablet promethazine 25 mg tablet 25 mg P
--- NOTE | 2023-01-28 08:56 | PC.NURSE ---
COURTESY TECH NOTE; ROUNDED ON PT 0810, PT DENIED NEED FOR ASSISTANCE WITH RESTROOM, AND NEED TO REPOSITION IN BED. CALL LIGHT WITHIN REACH, NO FURTHER REQUESTS AT THIS TIME JOON BASSETT
--- NOTE | 2023-01-28 09:20 | P.CONPHA_ITS ---
Pharmacy Intervention Comments: Patient's home medications reviewed and verified using provider note from 01/05/23, external history resource, and fax from [facility] with medication list. -Abelardo Rm, PharmD student
--- NOTE | 2023-01-28 09:59 | US_ITS ---
FINAL REPORT CLINICAL HISTORY: inttermitent pain. n/v/d COMPARISON: None FINDINGS: Sonographic images of the right upper quadrant were obtained. The pancreas is partially obscured.The liver has an unremarkable appearance. There is a 10 mm echogenic focus in the gallbladder which does not produce posterior acoustical shadowing and may represent a polyp. There is no evidence of biliary ductal dilatation.The common duct measures 4mm. There are 2 right renal cysts present, the larger measuring 2 cm in diameter. IMPRESSION: 10 mm echogenic focus in the gallbladder without shadowing, possibly a polyp. Would recommend a follow-up ultrasound in 6 months as clinically indicated. 2 renal cysts, the larger measuring 2 cm in size. Reviewed, Interpreted and Dictated by Scar Kruger III, MD Transcribed by Ebonie Walker Authenticated and [facility]
--- NOTE | 2023-01-28 10:09 | EXP.PN ---
Subjective *Date: 01/28/23 *Time: 17:58 Interval history: troponin levels are trended up and peaked at 2.1 before coming down ekg reviewed cr is 2 increased from 1.9, b/l is 1.2-1.5. she received 1.5L fluid bolus followed by NS @ 50ml/hr abd us without signs of cholecystitis Her abdominal pain and nausea have significantly subsided. She has no complaints at this time. Exam Data for Last 24 hours Vital signs and Labs for Last 24 Hours: Temp Pulse Resp BP Pulse Ox O2 Del Method 97.7 F 50 L 18 133/77 97 Room Air 01/28/23 07:16 01/28/23 08:00 01/28/23 07:16 01/28/23 07:16 01/28/23 07:16 01/28/23 07:16 Laboratory Results - last 24 hr 01/27/23 16:45: WBC 12.2 H, RBC 4.77, Hgb 14.8, Hct 46.1, MCV 96.7, MCH 31.0, MCHC 32.1, RDW 14.1, Plt Count 441 H, MPV 8.1, Neut % (Auto) 77.4, Lymph % (Auto) 17.8, Whitley % (Auto) 3.5, Eos % (Auto) 0.9, Baso % (Auto) 0.5, Neut # (Auto) 9.5 H, Lymph # (Auto) 2.2, Whitley # (Auto) 0.4, Eos # (Auto) 0.1, Baso # (Auto) 0.1, Sodium 141, Potassium 3.4 L, Chloride 107, Carbon Dioxide 19 L, Anion Gap 18.4 H, BUN 23 H, Creatinine 1.90 H, Estimated Creat Clear 32, Estimated GFR 26 L, Est GFR ( Amer) 32 L, Glucose 154 H, Calcium 9.5, Total Bilirubin 0.4, AST 33, ALT 22, Alkaline Phosphatase 104, Troponin I 0.01, Total Protein 8.4 H, Albumin 4.4, Globulin 4.0 H, Albumin/Globulin Ratio 1.1, Lipase 159 01/27/23 18:20: Urine Color Yellow, Urine Appearance Clear, Urine pH 7.0, Ur Specific Lannon 1.020, Urine Protein 3+, Urine Glucose (UA) Negative, Urine Ketones Negative, Urine Blood 1+, Urine Nitrate Negative, Urine Bilirubin Negative, Urine Urobilinogen 0.2, Ur Leukocyte Esterase Negative, Urine RBC Occasional, Urine WBC Occasional, Ur Squamous Epith Cells 3-5, Urine Bacteria None 01/27/23 21:25: SARS-CoV-2 (PCR) Not detected, Influenza A Untype (PCR) Not detected, Influenza Type B (PCR) Not detected 01/27/23 23:40: Troponin I 0.12 H 01/28/23 02:50: Troponin I 0.21 H 01/28/23 05:40: WBC 13.2 H, RBC 4.47, Hgb 13.9, Hct 43.1, MCV 96.3, MCH 31.0, MCHC 32.2, RDW 14.2, Plt Count 349, MPV 7.8, Neut % (Auto) 78.6, Lymph % (Auto) 16.4, Whitley % (Auto) 4.7, Eos % (Auto) 0.1, Baso % (Auto) 0.2, Neut # (Auto) 10.4 H, Lymph # (Auto) 2.2, Whitley # (Auto) 0.6, Eos # (Auto) 0.0, Baso # (Auto) 0.0, Sodium 139, Potassium 3.4 L, Chloride 110 H, Carbon Dioxide 20 L, Anion Gap 12.4, BUN 27 H, Creatinine 2.00 H, Estimated Creat Clear 28, Estimated GFR 25 L, Est GFR ( Amer) 30 L, Glucose 103 H D, Calcium 8.0 L, Magnesium 0.8 L, Total Bilirubin 0.3, AST 23 D, ALT 14 D, Alkaline Phosphatase 81, Total Protein 6.6, Albumin 3.5 D, Globulin 3.1, Albumin/Globulin Ratio 1.1, Triglycerides 206 H, Cholesterol 277 H, LDL Cholesterol Direct 147.07 H, VLDL Cholesterol 41 H, HDL Cholesterol 45, Cholesterol/HDL Ratio 6.2 H I & O for Last 24 hours: Intake & Output 01/25/23 01/26/23 01/27/23 01/28/23 23:59 23:59 23:59 23:59 Intake Total 873 / 873 Output Total 870 / 870 Balance Weight 65.771 kg 65.771 kg Constitutional Constitutional: no acute distress *Routine HEENT Exam Head: Present normocephalic Eye: Present EOMI and PERRL ENT: Present mucous membranes moist *Routine Neck Exam Neck: Present supple; Absent lymphadenopathy *Routine Respiratory Exam Respiratory: Present CTA bilaterally *Routine Cardiovascular Exam Cardiovascular: Present RRR *Routine Abdominal Exam Abdominal: Present soft and normoactive bowel sounds; Absent tenderness Comments: negative padilla's sign *Routine Extremities Exam Extremities: Absent cyanosis, clubbing or edema *Routine Skin Exam Skin: Present warm; Absent rash *Routine Neurological Exam Neurological: Present alert and oriented X3 Assessment and Plan *Assessment and plan (1) Intractable nausea and vomiting: Status: Acute Category: Medical Code(s): R11.2 - Nausea with vomiting, unspecified (2) Diarrhea in adult patient: Status: Acute Categor
[2023-01-28 14:00] LABS: Troponin I 0.15 ng/ml (0.00-0.034)
--- NOTE | 2023-01-28 17:49 | PC.NURSE ---
Patient tolerating clear liquid diet well, no pain reported. VS stable and patient remained on room air. Fluid rate increased to 100 ml/hr due to kidney function increase. No other changes noted.
[2023-01-29] VITALS (7 sets, daily range): BP systolic 120–179; BP diastolic 62–96; PULSE 49–110; RESP 18; TEMP 36.5–36.8; O2SAT 96–99; BMI 26.2
--- NOTE | 2023-01-29 02:39 | PC.NURSE ---
pt refused bath.
--- NOTE | 2023-01-29 05:18 | PC.NURSE ---
pt has rested well tonight. c/o of pain earlier tonight, tx per SEP. pt hasn't had stool, unable to collect sample. pt stated last bm was 01/25. A&OX4. RA. son at bedside t/o night. call light within reach, bed locked and at lowest position.
[2023-01-29 07:13] LABS: Basophils % 0.3 % (0.1-2.0); Eosinophils # 0.1 K/mm3 (0.0-0.4); Hemoglobin 11.5 g/dL (12.2-16.2); Lymphocytes # 2.9 K/mm3 (0.7-4.5); Lymphocytes % 33.3 % (10-50); Mean Corpuscular HGB Conc 31.2 g/dL (31.8-35.4); Mean Corpuscular Hemoglobin 30.8 pg (27.0-31.2); Mean Corpuscular Volume 98.8 fl (81-99); Mean Platelet Volume 7.5 fl (7.4-10.4); Monocytes # 0.6 K/mm3 (0.1-1.0); Monocytes % 6.4 % (1.7-9.3); Neutrophils # 5.1 K/mm3 (1.8-7.8); Platelet Count 284 K/mm3 (142-424); Red Blood Count 3.75 M/mm3 (4.20-5.40); White Blood Count 8.6 K/mm3 (4.8-10.8)
[2023-01-29 07:26] LABS: Alanine Aminotransferase 13 U/L (12-78); Albumin/Globulin Ratio 1.2 (1.1-1.8); Alkaline Phosphatase 72 U/L (38-126); Anion Gap 9.4 mEq/L (5-15); Aspartate Amino Transferase 20 U/L (14-36); Bilirubin,Total 0.3 mg/dl (0.2-1.3); Blood Urea Nitrogen 27 mg/dl (7-17); Calcium 8.2 mg/dl (8.4-10.2); Carbon Dioxide 19 mmol/L (22.0-30.0); Chloride 113 mmol/L (98-107); Creatinine Clearance Estimated 29 mL/min (50-200); Estimated Glomerular Filt Rate 23 ml/min (>60); GFR (African American) 28 ML/MIN (>60); Globulin 2.5 g/dL (1.3-3.2); Glucose 74 mg/dl (74-100); Potassium 3.4 mmoL/L (3.5-5.1); Sodium 138 mmol/L (136-145); Total Protein,Serum 5.5 g/dl (6.3-8.2)
[2023-01-29 07:57] LABS: Thyroid Stimulating Hormone 0.21 uIU/mL (0.465-4.68)
[2023-01-29 09:31] LABS: POC Glucose,Bedside 72 (70-110)
--- NOTE | 2023-01-29 10:52 | PC.NURSE ---
Courtesy Round Patient awake sitting up in bed with visitor at bedside.Trash and linens emptied. Ice water refilled. Call light within reach.
--- NOTE | 2023-01-29 15:27 | P.PN_ITS ---
Subjective Narrative: No acute events overnight. Her diet was advanced to full liquids for lunch, which she tolerated very well. She had a little reflux with her broth for breakfast. Denies nausea or vomiting. Has passed flatus and had some diarrhea today. Minimal right upper quadrant abdominal pain. Exam Data for Last 24 hours Vital signs and Labs for Last 24 Hours: Temp Pulse Resp BP Pulse Ox O2 Del Method 98.2 F 49 L 18 120/62 99 Room Air 01/29/23 15:09 01/29/23 15:09 01/29/23 15:09 01/29/23 15:09 01/29/23 15:09 01/29/23 15:09 Laboratory Results - last 24 hr 01/29/23 05:30: POC Glucose 72 01/29/23 06:45: WBC 8.6 D, RBC 3.75 L, Hgb 11.5 L, Hct 37.0, MCV 98.8, MCH 30.8, MCHC 31.2 L, RDW 14.0, Plt Count 284, MPV 7.5, Neut % (Auto) 59.0, Lymph % (Auto) 33.3, Morton % (Auto) 6.4, Eos % (Auto) 1.0, Baso % (Auto) 0.3, Neut # (Auto) 5.1, Lymph # (Auto) 2.9, Morton # (Auto) 0.6, Eos # (Auto) 0.1, Baso # (Auto) 0.0, Sodium 138, Potassium 3.4 L, Chloride 113 H, Carbon Dioxide 19 L, Anion Gap 9.4, BUN 27 H, Creatinine 2.10 H, Estimated Creat Clear 29, Estimated GFR 23 L, Est GFR ( Amer) 28 L, Glucose 74, Calcium 8.2 L, Total Bilirubin 0.3, AST 20, ALT 13, Alkaline Phosphatase 72, Total Protein 5.5 L, Albumin 3.0 L D, Globulin 2.5, Albumin/Globulin Ratio 1.2, TSH 0.21 L I & O for Last 24 hours: Intake & Output 01/26/23 01/27/23 01/28/23 01/29/23 23:59 23:59 23:59 23:59 Intake Total 2700 / 3259 2719 / 2719 Output Total 870 / 870 0 / 0 Balance 1830 / 2389 2719 / 2719 Weight 145 lb 145 lb 0.004 oz 153 lb 5 oz Constitutional Constitutional: no acute distress *Routine Abdominal Exam Abdominal: Present soft; Absent tenderness or distended Progress Note: A&P Assessment and plan (1) Intractable nausea and vomiting: Status: Acute Assessment and plan: Continues to improve. Agree with advancing diet as tolerated. She can go home when she tolerates diet reliably. If she is discharged before I see her again, please follow-up with Dr. Gross in the office in the next week to discuss elective cholecystectomy for small gallstone versus polyp. (2) Diarrhea in adult patient: Status: Acute (3) Acute epigastric pain: Status: Acute (4) Cholelithiasis: Status: Acute (5) Hypokalemia due to excessive gastrointestinal loss of potassium: Status: Acute (6) Acute kidney injury superimposed on CKD: Status: Acute (7) COPD (chronic obstructive pulmonary disease): Status: Acute (8) Hypothyroidism: Status: Acute (9) Hyperlipidemia: Status: Acute (10) Hypertension: Status: Acute (11) Tobacco use: Status: Acute (12) Anxiety and depression: Status: Acute
--- NOTE | 2023-01-29 17:23 | PC.NURSE ---
No acute changes noted. Patient has urinated but samples have been contaminated each time. No productive cough noted. VS stable and patient remained on room air. Pain noted at right upper quadrant relieved with prn pain medication.
--- NOTE | 2023-01-29 17:42 | EXP.ACUTE.PN ---
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 Medical Exam Vital signs and Labs for Last 24 Hours: Vital Signs Temp Pulse Pulse Resp BP Pulse Ox O2 Del Method 01/29/23 17:05 Room Air 01/29/23 15:12 Room Air 01/29/23 13:09 Room Air 01/29/23 11:00 Room Air 01/29/23 09:16 Room Air 01/29/23 09:16 Room Air 01/29/23 12:00 65 01/29/23 08:00 80 01/29/23 15:09 98.2 F 49 L 18 120/62 99 Room Air 01/29/23 12:00 98.3 F 67 18 179/96 H 99 01/29/23 07:38 98.2 F 71 18 155/68 H 98 Room Air 01/29/23 04:00 97.7 F 69 18 145/83 H 96 Room Air 01/29/23 04:00 80 01/29/23 05:00 Room Air 01/29/23 00:00 70 01/28/23 20:00 60 01/29/23 06:36 Room Air 01/29/23 03:00 Room Air 01/29/23 00:00 97.8 F 70 18 126/81 96 Room Air 01/28/23 23:00 Room Air 01/28/23 21:00 Room Air 01/29/23 00:57 Room Air 01/28/23 20:00 Room Air 01/28/23 20:00 97.9 F 95 H 18 119/48 L 96 Room Air 01/28/23 18:37 Room Air Intake and Output 01/29/23 01/29/23 01/29/23 07:59 15:59 23:59 Intake Total 1639 / 3715 1080 / 3715 996 / 3715 Output Total 0 / 500 0 / 500 500 / 500 Balance 1639 / 3215 1080 / 3215 496 / 3215 Intake: Intake, Oral Amount 480 / 1560 1080 / 1560 Intake, Total IV Amount 1159 / 2155 996 / 2155 0.9 % Sodium Chloride 1000ML 1, 1109 / 2105 996 / 2105 000 ml @ 100 mls/hr IV .Q10H [facility] Rx#:[id number] Magnesium Sulfate in Water 2 gm 50 / 50 In 50 ml @ 50 mls/hr IV BID [facility] Rx#:[id number] Output: Output, Urine Amount 0 / 500 0 / 500 500 / 500 Other: Number of Unmeasured Voids 1 1 1 Weight 69.541 kg Patient Weight 01/29/23 23:59 Weight 69.541 kg Laboratory Results - last 24 hr 01/29/23 05:30: POC Glucose 72 01/29/23 06:45: WBC 8.6 D, RBC 3.75 L, Hgb 11.5 L, Hct 37.0, MCV 98.8, MCH 30.8, MCHC 31.2 L, RDW 14.0, Plt Count 284, MPV 7.5, Neut % (Auto) 59.0, Lymph % (Auto) 33.3, Hart % (Auto) 6.4, Eos % (Auto) 1.0, Baso % (Auto) 0.3, Neut # (Auto) 5.1, Lymph # (Auto) 2.9, Hart # (Auto) 0.6, Eos # (Auto) 0.1, Baso # (Auto) 0.0, Sodium 138, Potassium 3.4 L, Chloride 113 H, Carbon Dioxide 19 L, Anion Gap 9.4, BUN 27 H, Creatinine 2.10 H, Estimated Creat Clear 29, Estimated GFR 23 L, Est GFR ( Amer) 28 L, Glucose 74, Calcium 8.2 L, Total Bilirubin 0.3, AST 20, ALT 13, Alkaline Phosphatase 72, Total Protein 5.5 L, Albumin 3.0 L D, Globulin 2.5, Albumin/Globulin Ratio 1.2, TSH 0.21 L I & O for Labs for Last 24 Hours: Intake & Output 01/26/23 01/27/23 01/28/23 01/29/23 23:59 23:59 23:59 23:59 Intake Total 2700 / 3259 3715 / 3715 Output Total 870 / 870 500 / 500 Balance 1830 / 2389 3215 / 3215 Weight 65.771 kg 65.771 kg 69.541 kg Head: Present atraumatic and normocephalic Neck: Present full ROM Respiratory: Present CTA bilaterally, normal respiratory effort, able to speak in complete sentences and symmetric chest movement Cardiac: Present Reg Rate and Rhythm and S1/S2 GI: Present soft Comments:: No right upper quadrant tenderness Rectal (female): Present deferred (female): Present deferred Neuro: Present oriented x 3 and moves all extremities Assessment and Plan *Assessment and plan (1) Biliary colic: Status: Acute Category: Medical Code(s): K80.50 - Calculus of bile duct without cholangitis or cholecystitis without obstruction (2) Nephropathy due to nonsteroidal anti-inflammatory drug (NSAID): Status: Acute Category: Medical Code(s): N
[2023-01-29 18:48] LABS: Adenovirus F 40/41, stool Not Detected (NotDetected); Astrovirus Not Detected (NotDetected); Campylobacter Not Detected (NotDetected); Cryptosporidium Not Detected (NotDetected); Cyclospora Cayetanesis Not Detected (NotDetected); Entamoeba histolytica Not Detected (NotDetected); Enteroaggregative E coli Not Detected (NotDetected); Enteropathogenic E coli Not Detected (NotDetected); Enterotoxigenic E coli Not Detected (NotDetected); Giardia lamblia Not Detected (NotDetected); Norovirus Not Detected (NotDetected); Plesimonas Shigalloides, PCR Not Detected (NotDetected); Rotavirus A Not Detected (NotDetected); Salmonella, PCR Not Detected (NotDetected); Sapovirus Not Detected (NotDetected); Shiga-like toxin E coli Not Detected (NotDetected); Shigella Enterovasive E coli Not Detected (NotDetected); Vibrio Cholerae Not Detected (NotDetected); Vibrio, PCR Not Detected (NotDetected); Yersinia Entercolitica, PCR Not Detected (NotDetected)
[2023-01-29 20:04] LABS: Microscopic, Urine URINE MICROSCOPIC (MICROSCOPIC)
[2023-01-29 20:06] LABS: Appearance,Urine CLEAR (Clear); Bilirubin,Urine Negative (Negative); Blood, Urine TRACE-I (Negative); Color,Urine YELLOW (Yellow); Glucose,Urine (UA) Negative (Negative); Ketones,Urine Negative (Negative); Leukocyte Esterase,Urine 1+ (Negative); Nitrate,Urine Negative (Negative); Protein,Urine 2+ (Negative); Urobilinogen,Urine 0.2 EU/dl (0.2)
[2023-01-29 20:38] LABS: Clostridium Difficile A/B, PCR Detected (NotDetected)
[2023-01-29 20:56] LABS: Bacteria,Urine 1+ /lpf; RBC,Urine Occasional #/hpf (0-3); Transitional Epi Cells,Urine OCC #/lpf (0-3)
[2023-01-30] VITALS (9 sets, daily range): BP systolic 125–175; BP diastolic 67–99; PULSE 50–70; RESP 18; TEMP 36.4–37.1; O2SAT 93–99; BMI 27.8
[2023-01-30 07:59] LABS: Anion Gap 10.5 mEq/L (5-15); Blood Urea Nitrogen 21 mg/dl (7-17); Calcium 8.6 mg/dl (8.4-10.2); Carbon Dioxide 22 mmol/L (22.0-30.0); Chloride 111 mmol/L (98-107); Creatinine Clearance Estimated 34 mL/min (50-200); Estimated Glomerular Filt Rate 26 ml/min (>60); GFR (African American) 32 ML/MIN (>60); Glucose 84 mg/dl (74-100); Potassium 3.5 mmoL/L (3.5-5.1); Sodium 140 mmol/L (136-145)
--- NOTE | 2023-01-30 10:53 | P.PN_ITS ---
Subjective Narrative: No acute events overnight. She tolerated grits and eggs for breakfast. She continues to have diarrhea, and her C. difficile came back positive. Minimal abdominal discomfort. Exam Data for Last 24 hours Vital signs and Labs for Last 24 Hours: Temp Pulse Resp BP Pulse Ox O2 Del Method 98.0 F 70 18 162/94 H 94 L Room Air 01/30/23 07:30 01/30/23 08:01 01/30/23 07:30 01/30/23 07:30 01/30/23 07:30 01/30/23 09:20 Laboratory Results - last 24 hr 01/29/23 18:42: Stl Aeromonas (PCR) Not detected, Stl C. cayetanensis PCR Not detected, Stool Rotavirus (PCR) Not detected, Stl Adenov F 40/41 PCR Not detected, Stool Astrovirus (PCR) Not detected, Stool Campylobacter PCR Not detected, Stl C.difficile Tox PCR Detected A, Stool Cryptosporidium PCR Not detected, Stl E.coli Shiga Tox PCR Not detected, Stool E coli O157 PCR Not detected, Stl Enterotoxigenic E PCR Not detected, Stool EPEC (PCR) Not detected, Stool EAEC (PCR) Not detected, Stl E. histolytica PCR Not detected, Stool Giardia Lamblia PCR Not detected, Stool Salmonella PCR Not detected, Stool Sapovirus (PCR) Not detected, Stl P. shigelloides PCR Not detected, Stl Shigella/EIEC PCR Not detected, St Y.enterocolitica PCR Not detected, Stool Vibrio (PCR) Not detected, Stl Vibrio cholerae PCR Not detected, Stl Norovirus GI/GII PCR Not detected 01/29/23 20:00: Urine Color Yellow, Urine Appearance Clear, Urine pH 6.0, Ur Specific Hundred 1.020, Urine Protein 2+, Urine Glucose (UA) Negative, Urine Ketones Negative, Urine Blood Trace-i, Urine Nitrate Negative, Urine Bilirubin Negative, Urine Urobilinogen 0.2, Ur Leukocyte Esterase 1+ A, Urine RBC Occasional, Urine WBC 10-20, Ur Squamous Epith Cells 3-5, Ur Transition Epith Cell Occ, Urine Bacteria 1+, Urine Eosinophils Absent, Urine Total Protein 415.0 H 01/30/23 07:15: Sodium 140, Potassium 3.5, Chloride 111 H, Carbon Dioxide 22, Anion Gap 10.5, BUN 21 H, Creatinine 1.90 H, Estimated Creat Clear 34, Estimated GFR 26 L, Est GFR ( Amer) 32 L, Glucose 84, Calcium 8.6 I & O for Last 24 hours: Intake & Output 01/27/23 01/28/23 01/29/23 01/30/23 23:59 23:59 23:59 23:59 Intake Total 2700 / 3259 3715 / 3715 720 / 720 Output Total 870 / 870 650 / 1000 350 / 350 Balance 1830 / 2389 3065 / 2715 370 / 370 Weight 145 lb 145 lb 0.004 oz 153 lb 5 oz 163 lb 6 oz Microbiology Reports for the Last 24 Hours: Microbiology 01/29/23 20:00 Urine,Clean Catch Urine Culture - Preliminary Constitutional Constitutional: no acute distress *Routine Abdominal Exam Abdominal: Present soft; Absent tenderness or distended Progress Note: A&P Assessment and plan (1) Biliary colic: Status: Acute Assessment and plan: Follow-up after this hospitalization in the office with Dr. Gross to set up haseeb ctive cholecystectomy. Positive C. difficile, and continues to have diarrhea. Creatinine is also greater than baseline today. Discharge planning per primary team, but I would imagine not until she can keep up with her GI losses to prevent further renal insult. (2) Nephropathy due to nonsteroidal anti-inflammatory drug (NSAID): Status: Acute (3) Elevated troponin: Status: Acute (4) Gallbladder calculus: Status: Acute
--- NOTE | 2023-01-30 14:08 | EXP.ACUTE.PN ---
Subjective *Date: 01/30/23 *Time: 14:08 Interval history: Multiple episodes of loose stools last night Stool sample to screen for C. difficile and is positive Creatinine plateauing, slightly improved 2.0-->1.9 Right upper quadrant abdominal pain is better. Tolerating diet. Diarrhea multiple episodes today as well. No worsening abdominal No fevers Urinating fine No chest pain or shortness of Medical Exam Vital signs and Labs for Last 24 Hours: Vital Signs Temp Pulse Pulse Resp BP Pulse Ox O2 Del Method 01/30/23 11:33 98.3 F 60 18 164/99 H 99 Room Air 01/30/23 08:01 70 01/30/23 08:13 Room Air 01/30/23 09:20 Room Air 01/30/23 07:30 98.0 F 68 18 162/94 H 94 L Room Air 01/30/23 07:00 Room Air 01/30/23 04:00 98.0 F 55 L 18 125/67 94 L Room Air 01/30/23 04:00 50 L 01/30/23 05:00 Room Air 01/30/23 03:00 Room Air 01/29/23 20:00 60 01/30/23 01:00 Room Air 01/30/23 00:00 97.6 F 57 L 18 165/95 H 97 Room Air 01/29/23 23:00 Room Air 01/29/23 21:00 Room Air 01/29/23 20:00 Room Air 01/29/23 20:00 97.7 F 110 H 18 140/82 97 Room Air 01/29/23 18:39 Room Air 01/29/23 17:05 Room Air 01/29/23 15:12 Room Air 01/29/23 15:09 98.2 F 49 L 18 120/62 99 Room Air Intake and Output 01/29/23 01/30/23 01/30/23 23:59 07:59 15:59 Intake Total 996 / 3715 720 / 720 Output Total 650 / 1000 350 / 350 0 / 350 Balance 346 / 2715 370 / 370 0 / 370 Intake: Intake, Oral Amount 720 / 720 Intake, Total IV Amount 996 / 2155 0.9 % Sodium Chloride 1000ML 1, 996 / 2105 000 ml @ 100 mls/hr IV .Q10H [facility] Rx#:[id number] Output: Output, Urine Amount 650 / 1000 350 / 350 0 / 350 Other: Number of Unmeasured Voids 1 1 1 Weight 74.106 kg Patient Weight 01/30/23 23:59 Weight 74.106 kg Laboratory Results - last 24 hr 01/29/23 18:42: Stl Aeromonas (PCR) Not detected, Stl C. cayetanensis PCR Not detected, Stool Rotavirus (PCR) Not detected, Stl Adenov F 40/41 PCR Not detected, Stool Astrovirus (PCR) Not detected, Stool Campylobacter PCR Not detected, Stl C.difficile Tox PCR Detected A, Stool Cryptosporidium PCR Not detected, Stl E.coli Shiga Tox PCR Not detected, Stool E coli O157 PCR Not detected, Stl Enterotoxigenic E PCR Not detected, Stool EPEC (PCR) Not detected, Stool EAEC (PCR) Not detected, Stl E. histolytica PCR Not detected, Stool Giardia Lamblia PCR Not detected, Stool Salmonella PCR Not detected, Stool Sapovirus (PCR) Not detected, Stl P. shigelloides PCR Not detected, Stl Shigella/EIEC PCR Not detected, St Y.enterocolitica PCR Not detected, Stool Vibrio (PCR) Not detected, Stl Vibrio cholerae PCR Not detected, Stl Norovirus GI/GII PCR Not detected 01/29/23 20:00: Urine Color Yellow, Urine Appearance Clear, Urine pH 6.0, Ur Specific Childs 1.020, Urine Protein 2+, Urine Glucose (UA) Negative, Urine Ketones Negative, Urine Blood Trace-i, Urine Nitrate Negative, Urine Bilirubin Negative, Urine Urobilinogen 0.2, Ur Leukocyte Esterase 1+ A, Urine RBC Occasional, Urine WBC 10-20, Ur Squamous Epith Cells 3-5, Ur Transition Epith Cell Occ, Urine Bacteria 1+, Urine Eosinophils Absent, Urine Total Protein 415.0 H 01/30/23 07:15: Sodium 140, Potassium 3.5, Chloride 111 H, Carbon Dioxide 22, Anion Gap 10.5, BUN 21 H, Creatinine 1.90 H, Estimated Creat Clear 34, Estimated GFR 26 L, Est GFR ( Amer) 32 L, Glucose 84, Calcium 8.6 I & O for Labs for Last 24 Hours: Intake & Output 01/27/23 01/28/23 01/29/23 01/30/23 23:59 23:59 23:59 23:59 Intake Total 2700 / 3259 3715 / 3715 720 / 720 Output Total 870 / 870 650 / 1000 350 / 350 Balance 1830 / 2389 3065 / 2715 370 / 370 Weight 65.771 kg 65.771 kg 69.541 kg 74.106 kg Microbiology Reports for the Last 24 Hours: Microbiology 01/29/23 20:00 Urine,Clean Catch Urine Culture - Preliminary Constitutional: Present no ac
--- NOTE | 2023-01-30 15:53 | PC.NURSE ---
RESPIRATORY CARE NOTE:PT STATED SHE IS COUGHING UP SPUTUM.GAVE PT CUP AND INSTRUCTED HER TO COUGH SAMPLE INTO CUP.WILL CONTINUE TO CHECK.
--- NOTE | 2023-01-30 17:32 | PC.NURSE ---
VS stable and patient remained on room air. PO Vancomycin started and patient tolerating well. Pain noted in right upper quadrant of abdomen but patient states pain is better than previous shift.
[2023-01-31] VITALS (8 sets, daily range): BP systolic 163–179; BP diastolic 62–93; PULSE 60–87; RESP 17–18; TEMP 36.7–37.3; O2SAT 92–95; BMI 27.5
--- NOTE | 2023-01-31 03:12 | PC.NURSE ---
@[id number] THIS RN CALLED RT TO BEDSIDE FOR PRN BREATHING TREATMENT; PT CALLED FOR A PAIN PILL AND WHEN THIS RN ENTERED THE ROOM, PT WAS WHEEZING, DIAPHORETIC, AND SOA. THIS RN ASSESSED PT, PT HYPERTENSIVE, C/O BACK PAIN, AND SOA ON EXERTION. PT STATES THIS HAPPENS AT HOME SOMETIMES, BUT SHE TAKES BREATHING TREATMENTS AND AN INHALER AT HOME. PT HAS AN UNOPENED (NOW OPENED BY THIS RN) INHALER THAT HAS BEEN CHARTED ON REFUSED BY RT STAFF. THIS RN TOLD PT THAT SHE HAS BEEN REFUSING HER INHALER AND SHE STATES SHE HAS NOT BEEN REFUSING. RT AT BEDSIDE FOR BREATHING TREATMENT AND TO DISCUSS INHALER.
--- NOTE | 2023-01-31 03:22 | PC.NURSE ---
@ THIS TIME PT DID STATE THAT SHE HAS NOT BEEN EDUCATED OR REFUSING HER ADVAIR INHALER; PT STATES RT HAS NEVER EDUCATED OR OFFERED INHALER TO HER; SON AT BEDSIDE AGREEING THAT SHE HAS NEVER REFUSED. THIS RN WILL DISCUSS FINDINGS WITH CHARGE NURSE
--- NOTE | 2023-01-31 03:30 | PC.NURSE ---
@2186 EDUARDA SHEIKH NOTIFIED D/T PT HAVING INCREASED ANXIETY AND STATING SHE HAS NOT BEEN GETTING PER PROZAC AND THAT MAY BE THE ISSUE; SEE NEW ORDERS FOR RESTARTING HOME MED AND ONE TIME DOSE OF XANAX.
--- NOTE | 2023-01-31 03:43 | PC.NURSE ---
PT TOLD RT 01/29 THAT SHE TAKES SYMBICORT AT HOME AND DID NOT WANT ADVAIR. RT WAS CALLED 01/31 FOR AEROSOL TREATMENT AT 3AM AND DISCUSSED THE NEED FOR SYMBICORT TO BE BROUGHT IN FROM HOME OR ADVAIR TO BE STARTED IN PLACE OF SYMBICORT.
[2023-01-31 06:24] LABS: Basophils % 0.2 % (0.1-2.0); Eosinophils # 0.2 K/mm3 (0.0-0.4); Eosinophils % 1.7 % (0.1-12.0); Hematocrit 36.7 % (37.0-47.0); Hemoglobin 11.4 g/dL (12.2-16.2); Lymphocytes # 1.1 K/mm3 (0.7-4.5); Lymphocytes % 11.9 % (10-50); Mean Corpuscular HGB Conc 31.1 g/dL (31.8-35.4); Mean Corpuscular Hemoglobin 30.5 pg (27.0-31.2); Mean Corpuscular Volume 98.1 fl (81-99); Mean Platelet Volume 7.7 fl (7.4-10.4); Monocytes # 0.4 K/mm3 (0.1-1.0); Monocytes % 4.1 % (1.7-9.3); Neutrophils # 7.7 K/mm3 (1.8-7.8); Neutrophils % 82.1 % (37.0-80.0); Platelet Count 303 K/mm3 (142-424); Red Blood Count 3.75 M/mm3 (4.20-5.40); White Blood Count 9.4 K/mm3 (4.8-10.8)
[2023-01-31 06:40] LABS: Alanine Aminotransferase 13 U/L (12-78); Albumin Level 3.4 g/dl (3.5-5.0); Albumin/Globulin Ratio 1.2 (1.1-1.8); Alkaline Phosphatase 79 U/L (38-126); Anion Gap 10.6 mEq/L (5-15); Aspartate Amino Transferase 27 U/L (14-36); Bilirubin,Total 0.5 mg/dl (0.2-1.3); Blood Urea Nitrogen 20 mg/dl (7-17); Calcium 8.5 mg/dl (8.4-10.2); Carbon Dioxide 24 mmol/L (22.0-30.0); Chloride 108 mmol/L (98-107); Creatinine Clearance Estimated 37 mL/min (50-200); Estimated Glomerular Filt Rate 30 ml/min (>60); GFR (African American) 36 ML/MIN (>60); Globulin 2.8 g/dL (1.3-3.2); Glucose 90 mg/dl (74-100); Potassium 3.6 mmoL/L (3.5-5.1); Sodium 139 mmol/L (136-145); Total Protein,Serum 6.2 g/dl (6.3-8.2)
--- NOTE | 2023-01-31 07:19 | EXP.SURG.PN ---
Subjective Narrative: The patient is currently resting. Per nursing, she is doing okay and hopefully going home today . Exam Data for Last 24 hours Vital signs and Labs for Last 24 Hours: Temp Pulse Resp BP Pulse Ox O2 Del Method 98.6 F 70 18 163/75 H 95 Room Air 01/31/23 04:00 01/31/23 04:52 01/31/23 04:00 01/31/23 04:00 01/31/23 04:00 01/31/23 07:00 Laboratory Results - last 24 hr 01/30/23 07:15: Sodium 140, Potassium 3.5, Chloride 111 H, Carbon Dioxide 22, Anion Gap 10.5, BUN 21 H, Creatinine 1.90 H, Estimated Creat Clear 34, Estimated GFR 26 L, Est GFR ( Amer) 32 L, Glucose 84, Calcium 8.6 01/31/23 05:51: WBC 9.4, RBC 3.75 L, Hgb 11.4 L, Hct 36.7 L, MCV 98.1, MCH 30.5, MCHC 31.1 L, RDW 14.0, Plt Count 303, MPV 7.7, Neut % (Auto) 82.1 H, Lymph % (Auto) 11.9, [place] % (Auto) 4.1, Eos % (Auto) 1.7, Baso % (Auto) 0.2, Neut # (Auto) 7.7, Lymph # (Auto) 1.1, [place] # (Auto) 0.4, Eos # (Auto) 0.2, Baso # (Auto) 0.0, Sodium 139, Potassium 3.6, Chloride 108 H, Carbon Dioxide 24, Anion Gap 10.6, BUN 20 H, Creatinine 1.70 H, Estimated Creat Clear 37, Estimated GFR 30 L, Est GFR ( Amer) 36 L, Glucose 90, Calcium 8.5, Total Bilirubin 0.5, AST 27 D, ALT 13, Alkaline Phosphatase 79, Total Protein 6.2 L, Albumin 3.4 L, Globulin 2.8, Albumin/Globulin Ratio 1.2 I & O for Last 24 hours: Intake & Output 01/28/23 01/29/23 01/30/23 01/31/23 11:59 11:59 11:59 11:59 Intake Total 873 / 873 4006 / 4006 2256 / 2256 4615 / 4615 Output Total 870 / 870 0 / 0 1000 / 1000 950 / 950 Balance 3 / 3 4006 / 4006 1256 / 1256 3665 / 3665 Weight 145 lb 0.004 oz 153 lb 5 oz 163 lb 6 oz 161 lb 6 oz Microbiology Reports for the Last 24 Hours: Microbiology 01/30/23 20:30 Sputum - Expectorated Sputum Gram Stain - Final 01/29/23 20:00 Urine,Clean Catch Urine Culture - Preliminary Constitutional Comments: Deferred to allow patient rest Progress Note: A&P Assessment and plan (1) C. difficile diarrhea: Status: Acute (2) Gallbladder polyp: Status: Acute Assessment and plan: Borderline size to warrant cholecystectomy. Ongoing discussion once she has recovered from her acute illness.
--- NOTE | 2023-01-31 10:03 | PC.NURSE ---
pt has no iv access. notified and okay with no iv at this time due to poss dc
--- NOTE | 2023-01-31 12:23 | EXP.DC.SUM ---
General Admission date:: 01/27/23 Discharge date: 01/31/23 HPI HPI HPI: This is a 67-year-old female seen in consultation from the primary service after being evaluated in the emergency department for abdominal pain and nausea/vomiting. She also reports recent history of diarrhea. She was also evaluated in the emergency department on January 18 with similar symptomatology and diagnosed with likely viral enteritis . Evaluation on both occasions included a CT scan that did reveal evidence of small/stable gallstone. No evidence of cholecystitis was noted. No evidence of biliary obstruction was noted. She states that she feels a little bit better right now . No fevers. No jaundice. Forwarded from admission H&P: This is a 67-year female with PMHx of COPD, hypertension, hyperlipidemia, hypothyroidism, GERD, CKD, chronic pain, anxiety and depression with tobacco dependence, who is seen at ER due to intermittent epigastric pain. Patient stated she has been having epigastric pain for the past 2 days that comes and go. As well patient is having intractable nausea, vomiting and diarrhea that has increased today, and there is nothing in the patient's past tried that helped improve symptoms. Patient denied any history of gallstones or pancreatitis. No fevers or chills no urgency frequency no burning urination. Patient has history of acid with history of peptic ulcer disease. She has had a colonoscopy and endoscopy in the past. Patient is a longstanding smoker however. At ER initial evaluation included CT of the abdomen with concerning of cholelithiasis without cholecystitis. Patient seems to be severely dehydrated. Findings discussed with the ER doctor. Admitted for further management. Hospital Course Hospital Course Hospital Course: The patient's main symptom was postprandial RUQ pain. ct abd and us abdomen reveal biliary stones but no signs of infection. She will need to follow up with General surgery for possible elective cholecystectomy. The patient did have elevated troponin levels which peaked at 0.21. EKG reveals ST abnormality in the inferior and lateral leads. I discussed the case with Cardiology and they feel that the patient's symptoms are not cardiac in nature. They advised the patient to follow up in clinic. Hospital course was prolonged because the patient was found to be positive for cdiff; her first occurrence. She was started on oral vancomycin. By the day of discharge she did not have any diarrhea. She later disclosed that prior to admission she was diagnosed with a UTI and had take 2 days of Macrobid based on urine culture from 01/19/23. ua on day of admission was not indicative of a uti but 2 days later ua had 20-30 wbcs. She had denied fever, dysuria but did have mild suprapubic discomfort with palpation and complained of urinary frequency so she was discharged on 5 more days of Macrobid. Time spent on this discharge summary including face to face encounter with the patient was 35 minutes. Exam Data for Last 24 hours Vital signs and Labs for Last 24 Hours: Temp Pulse Resp BP Pulse Ox O2 Del Method 98.0 F 62 17 171/62 H 94 L Room Air 01/31/23 11:07 01/31/23 11:07 01/31/23 11:01/31/23 11:01/31/23 11:01/31/23 11:07 Laboratory Results - last 24 hr 01/29/23 20:00: Urine Color Yellow, Urine Appearance Clear, Urine pH 6.0, Ur Specific [place] 1.020, Urine Protein 2+, Urine Glucose (UA) Negative, Urine Ketones Negative, Urine Blood Trace-i, Urine Nitrate Negative, Urine Bilirubin Negative, Urine Urobilinogen 0.2, Ur Leukocyte Esterase 1+ A, Urine RBC Occasional, Urine WBC 10-20, Ur Squamous Epith Cells 3-5, Ur Transition Epith Cell Occ, Urine Bacteria 1+ 01/31/23 05:51: WBC 9.4, RBC 3.75 L, Hgb 11.4 L, Hct 36.7 L, MCV 98.1, MCH 30.5, MCHC 31.1 L, RDW 14.0, Plt Count 303, MPV 7.7, Neut % (Auto) 82.1 H, Lymph % (Auto) 11.9, [place] % (Auto) 4.1, Eos % (Auto) 1.7, Baso % (Auto) 0.2, Neut # (Auto) 7.7, Ly
--- NOTE | 2023-01-31 12:38 | HMH.PHAINT1 ---
Pharmacy Intervention Comments: Patient's discharge medications discussed and reviewed with patient: -Stop Original Macrobid prescription -start new macrobid prescription that is the new dose and length needed (antibiotic, take until completion, may cause GI issues) - Start vancomycin (antibiotic, take until completion, may cause GI issues) Patient had no further questions at this time. -Cruz Crook, Pharm Student
--- NOTE | 2023-02-01 15:53 | CARE MANAGER ---
Contacted patient related to hospital discharge. She states she got her medications and is aware of follow up appointments. Denies questions or concerns. NISHI Lin
== END 2023-01-31 13:29 | disposition home or self-care (01) | DRG 371 ==
LOC: ER 21:30 → 2ND 21:40
PROVIDERS: Family Medicine; Internal Medicine; Nurse Practitioner Family; Surgery; Admitting Provider Internal Medicine; Emergency Provider Emergency Medicine; PCP Emergency Medicine; Visit Provider Internal Medicine
DX: A04.72 Enterocolitis due to Clostridium difficile, not specified as recurrent (principal); N17.1 Acute kidney failure with acute cortical necrosis; K52.9 Noninfective gastroenteritis and colitis, unspecified; R10.13 Epigastric pain; E87.6 Hypokalemia; N18.9 Chronic kidney disease, unspecified; J44.9 Chronic obstructive pulmonary disease, unspecified; E03.9 Hypothyroidism, unspecified; Z72.0 Tobacco use; F41.9 Anxiety disorder, unspecified; F32.9 Major depressive disorder, single episode, unspecified; N14.19 Nephropathy induced by other drugs, medicaments and biological substances; T39.395A Adverse effect of other nonsteroidal anti-inflammatory drugs [NSAID], initial encounter; K82.4 Cholesterolosis of gallbladder; I12.9 Hypertensive chronic kidney disease with stage 1 through stage 4 chronic kidney disease, or unspecified chronic kidney disease; E78.00 Pure hypercholesterolemia, unspecified; E86.0 Dehydration; K21.9 Gastro-esophageal reflux disease without esophagitis
CPT/HCPCS: 36415; 74150; 76705; 80048; 80053; 80061; 81001; 82962; 83690; 83735; 84155; 84443; 84484; 85025; 87070; 87081; 87086; 87088; 87186; 87205; 87507; 87636; 93005; 93306; 94640; 99285; G0378; J2405; J3475

== ENCOUNTER → 2023-02-08 23:34 | Outpatient (CLI) | payer MEDICARE, SELFPAY ==
[2023-02-08 19:35] LABS: Amphetamine/Metha Screen,Urine Negative ng/ml (<1000); Barbiturates Screen,Urine Negative ng/ml (<200)
[2023-02-08 19:36] LABS: Benzodiazepines Screen,Urine Negative ng/ml (<200)
[2023-02-08 19:37] LABS: Cannabinoid Screen,Urine Positive ng/ml (<50); Cocaine Screen,Urine Negative ng/ml (<300)
[2023-02-08 19:38] LABS: Methadone Screen,Urine Negative ng/ml (<300)
[2023-02-08 19:39] LABS: Opiate Screen,Urine Positive ng/ml (<300); Phencyclidine Screen,Urine Negative ng/ml (<25)
== END ==
PROVIDERS: PCP Emergency Medicine; Visit Provider Emergency Medicine
DX: M54.16 Radiculopathy, lumbar region (principal); Z79.899 Other long term (current) drug therapy
CPT/HCPCS: 80305

== ENCOUNTER → 2023-02-11 12:04 | Outpatient (CLI) | payer MEDICARE, SELFPAY ==
--- NOTE | 2023-02-11 | CA_ITS ---
APPROVED REPORT Exam: Pharmacologic Technologist: Chiqui Bragg, Ht: 5 ft 4 in Wt: 154 lbs BSA: 1.75 m2 HR: 63 bpm BP: 160/81 mmHg Rhythm: NSR Medical History Medications: Lisinopril,,,,, Levothyroxine,,,,, Gabapentin,,,,, Hydrochlorothiazide,,,,, Metoprolol Tartrate,,,,, Pantoprazole,,,,, Atorvastatin,,,,, Buspirone,,,,, Duoneb,,,,, SyMBICORT,,,,, Albuterol,,,,, ProMETHAZINE,,,,, Stress Test Details Test: LEXISCAN Reason for pharmacologic stress test: physical limitation. Reversal agent Aminophyline 100.0 mg, given intravenously for nausea. HR Resting HR: 65 bpm Max Heart Rate (APMHR): 153 bpm Max HR Achieved: 92 bpm Target HR (85% APMHR): 130 bpm % of APMHR: 60 Recovery HR: 72 bpm BP Resting BP: 160/81 mmHg Max BP: 199/112 mmHg Recovery BP: 174.0/80.0 mmHg ECG Resting ECG: NSR, right axis deviation Stress ECG: No change Arrhythmia: None Clinical Exercise duration: 04:00 min Highest Stage Achieved: Stress ECG Conclusion SOA Nausea, Malaise Nausea, vomiting Aminothylline 100mg slow IV given, after which her symptoms completely resolved. Symptoms: SOA, nausea, malaise. No PC. Arrhythmias/Ectopy: None ST-T Changes: No significant changes. Conclusion: Unremarkable Lexiscan stress. Myoview images reported separately. Of note, her BP was elevated at baseline. She will monitor her BP at home & alert her physician if remains elevated. Test Summary REST . . . . . . . Resting REST 03:13 . . 65 . 160/ 81 . . Stage 1 01:00 . . 80 . . . . Stage 2 01:00 . . 88 . 182/ 93 . . Stage 3 01:00 . . 91 . . . . Stage 4 01:00 . . 91 . 199/112 . Stop exercise at 04:00 RECOVERY 01:00 . . 90 . . . . RECOVERY 02:00 . . 83 . . . . RECOVERY 03:00 . . 81 . . . . RECOVERY 04:00 . . 76 . 182/ 93 . . RECOVERY 05:00 . . 74 . 178/ 90 . . RECOVERY 06:00 . . 73 . 178/ 90 . . RECOVERY 07:00 . . 72 . 178/ 90 . . RECOVERY 08:00 . . 72 . 174/ 80 . . RECOVERY 08:20 . . 71 . 174/ 80 . . Electronically signed by : Cristiana Caba, 02/13/2023 17:31:20
--- NOTE | 2023-02-11 12:05 | NM_ITS ---
APPROVED REPORT Exam: Nuclear Stress Test Indication: soa..fatigue Patient Location: Outpatient Stress Tech: Chiqui Ramirez [place] Tech:JAZMÍN Zuniga RT(R)(N) Ht: 5 ft 4 in Wt: 154 lbs Bra Size: 36b HR: 65 bpm BP: 160/81 mmHg BSA: 1.75 m2 Rhythm: NSR TID: 0.91 BMI: 26.4 History: soa..fatigue Procedure: Patient received 0.4 mg of intravenous Lexiscan, resting heart rate 65 bpm, resting blood pressure 160/81 mmHg, with Lexiscan maximum heart rate achieved was 92 bpm which is 85 % of the maximum predicted heart rate and blood pressure was 199/112 mmHg. With Lexiscan, patient denied any complaint of chest pain. Cardiac Stress and Resting SPECT Images: Cardiac Stress and Resting SPECT images were obtained using technetium 99m Myoview 32.9 mCi stress and 10.69 mCi at rest. This is a technically difficult and limited study due to significant soft tissue overlap with the cardiac border. This is especially significant in the supine stress imaging, whereby supine stress imaging is not analyzable. There is also significant GI radiotracer uptake in close proximity to the cardiac border. This may limit the diagnostic interpretation of the study findings. Resting and stress imaging in prone position demonstrate no evidence of fixed or reversible perfusion defects. However, true perfusion defects cannot be entirely ruled out due to technically limited study. Gated imaging demonstrates mild reduction in global and regional LV systolic function. LVEF is calculated at 47%. Conclusion: This is a technically difficult and limited study due to significant soft tissue overlap with the cardiac border. This is especially significant in the supine stress imaging, whereby supine stress imaging is not analyzable. There is also significant GI radiotracer uptake in close proximity to the cardiac border. This may limit the diagnostic interpretation of the study findings. Resting and stress imaging in prone position demonstrate no evidence of fixed or reversible perfusion defects in the available images. However, true perfusion defects cannot be entirely ruled out due to technically limited study. Gated imaging demonstrates mild reduction in global and regional LV systolic function. LVEF is calculated at 47%. Due to limited imaging, alternative diagnostic modalities are recommended, if clinically appropriate. Electronically signed by : Cristiana Caba, 02/13/2023 17:41:51
== END ==
LOC: RAD 12:05
PROVIDERS: PCP Emergency Medicine; Visit Provider Nurse Practitioner
DX: R77.8 Other specified abnormalities of plasma proteins (principal); R94.31 Abnormal electrocardiogram [ECG] [EKG]
CPT/HCPCS: 78452; 93017; A9502; J0280; J2785

== ENCOUNTER 2023-03-30 06:59 | Outpatient (CLI) | payer MEDICARE, SELFPAY ==
[2023-03-30] VITALS (9 sets, daily range): BP systolic 0–178; BP diastolic 0–84; PULSE 0–66; RESP 0–18; TEMP 36.4; O2SAT 93–98; BMI 25.2
[2023-03-30 08:04] LABS: Anion Gap 16.7 mEq/L (5-15); Basophils % 0.5 % (0.1-2.0); Blood Urea Nitrogen 18 mg/dl (7-17); Calcium 9.1 mg/dl (8.4-10.2); Carbon Dioxide 22 mmol/L (22.0-30.0); Chloride 105 mmol/L (98-107); Creatinine Clearance Estimated 34 mL/min (50-200); Eosinophils # 0.2 K/mm3 (0.0-0.4); Eosinophils % 2.4 % (0.1-12.0); Estimated Glomerular Filt Rate 30 ml/min (>60); GFR (African American) 36 ML/MIN (>60); Glucose 90 mg/dl (74-100); Hematocrit 44.5 % (37.0-47.0); Hemoglobin 13.9 g/dL (12.2-16.2); Lymphocytes # 2.6 K/mm3 (0.7-4.5); Lymphocytes % 27.8 % (10-50); Mean Corpuscular HGB Conc 31.2 g/dL (31.8-35.4); Mean Corpuscular Hemoglobin 31.6 pg (27.0-31.2); Mean Corpuscular Volume 101.4 fl (81-99); Mean Platelet Volume 8.2 fl (7.4-10.4); Monocytes # 0.6 K/mm3 (0.1-1.0); Monocytes % 6.7 % (1.7-9.3); Neutrophils # 5.9 K/mm3 (1.8-7.8); Neutrophils % 62.7 % (37.0-80.0); Platelet Count 266 K/mm3 (142-424); Potassium 3.7 mmoL/L (3.5-5.1); Red Blood Count 4.39 M/mm3 (4.20-5.40); Red Cell Distribution Width 13.6 % (11.5-17.5); Sodium 140 mmol/L (136-145); White Blood Count 9.4 K/mm3 (4.8-10.8)
--- NOTE | 2023-03-30 08:40 | PC.NURSE ---
GFR 30. Checked with radiology about result and was instructed to notify cardiology. Spoke with Renan MATA and rec'd new orders to give NS 500cc before and after CTA procedure. Normal saline started.
--- NOTE | 2023-03-30 08:40 | PC.NURSE ---
Normal Saline started IV.
--- NOTE | 2023-03-30 09:21 | PC.NURSE ---
Pt to CT room, BP 139/71-Nitro 0.8mg SL given per standing orders.
--- NOTE | 2023-03-30 10:18 | PC.NURSE ---
Pt to CT, BP 157/83-Nitro .8mg SL given per standing orders.
--- NOTE | 2023-03-30 10:30 | PC.NURSE ---
CTA complete, VSS. Transport via W/C to post op. Report given to Amber Lowry RN
--- NOTE | 2023-03-30 11:41 | PC.NURSE ---
500ml bolus continued at 1035 when pt got back to post op. bolus completed at 1115. pt reports no pain, soa, or n/v.
== END 2023-03-30 11:25 | disposition home or self-care (01) ==
PROVIDERS: PCP Emergency Medicine; Visit Provider Nurse Practitioner Family
DX: E78.5 Hyperlipidemia, unspecified (principal); I10 Essential (primary) hypertension; I20.8 Other forms of angina pectoris; R77.8 Other specified abnormalities of plasma proteins
CPT/HCPCS: 75574; 80048; 85025

== ENCOUNTER → 2023-04-07 07:59 | Outpatient (CLI) | payer MEDICARE, SELFPAY ==
--- NOTE | 2023-04-07 08:01 | CA_ITS ---
FINAL REPORT CLINICAL HISTORY: HTN,SMOKER COMPARISON: None FINDINGS: Aorta velocity: 87.5 cm/sec Right kidney: 9.3 cm. No evidence of hydronephrosis or mass. There is a 2.5 cm hypoechoic renal cyst present. Right intrarenal RI: 0.7 Right renal artery velocity: 280.4 cm/sec. Right RAR (Renal artery-Aortic Ratio): 3.2 Left Kidney: 8.8 cm. No evidence of hydronephrosis or mass. A 1.3 cm left renal cyst is present. Left intrarenal RI: 0.9 Left renal artery velocity: 143 cm/sec. Left RAR (Renal Artery-Aortic Ratio): 1.6 IMPRESSION: Greater than 60% stenosis of the right renal artery. No significant stenosis seen in the left renal artery. CT angiogram, postcontrast MR angiogram or catheter angiography would be more sensitive for evaluation of possible renal artery stenosis. Reviewed, Interpreted and Dictated by Dilshad Byers MD Transcribed by Ebonie Walker Authenticated and [facility]
--- NOTE | 2023-04-07 08:35 | US_ITS ---
FINAL REPORT TECHNIQUE: Ultrasound images of the kidneys and bladder were obtained. CLINICAL HISTORY: R94.39 - Abnormal result of other cardiovascular function... Hypertension COMPARISON: None FINDINGS: The right kidney measures 9.7 cm in length. The left kidney measures 7.9 cm in length. Renal cortical echogenicity is slightly increased compatible with underlying medical renal disease. There is no hydronephrosis. The urinary bladder is unremarkable. IMPRESSION: No hydronephrosis. Increased renal cortical echogenicity Reviewed, Interpreted and Dictated by Dilshad Byers MD Transcribed by Emy Grace Authenticated and [facility]
== END ==
LOC: RT 08:00
PROVIDERS: PCP Emergency Medicine; Visit Provider Physician Assistant
DX: E78.5 Hyperlipidemia, unspecified (principal); I10 Essential (primary) hypertension; R07.89 Other chest pain; R94.39 Abnormal result of other cardiovascular function study
CPT/HCPCS: 76770; 93976

== ENCOUNTER 2023-05-13 11:42 | Observation (INO) | payer MEDICARE, SELFPAY ==
[2023-05-13] VITALS (17 sets, daily range): BP systolic 117–175; BP diastolic 59–87; PULSE 53–87; RESP 16–20; TEMP 36.4–36.7; O2SAT 94–97; BMI 25.4; BMI 26.4
--- NOTE | 2023-05-13 07:19 | IR_ITS ---
APPROVED REPORT Patient Location: Outpatient Branch Operations Specialist: JAZMÍN Sood RT (R) PROCEDURES Bilateral selective renal angiography Drug-eluting stent deployment to the proximal mid and distal right renal artery Bare-metal stent deployment to the proximal mid and distal left renal artery INDICATION Abnormal renal duplex, Renovascular hypertension, Fibromuscular dysplasia, Chronic renal failure creatinine 1.9, Renal artery stenosis Informed consent was obtained prior to the procedure. COMPLICATIONS None Estimated Blood Loss: Less than 10 mls TECHNIQUE One percent lidocaine used to anesthetize the right anterior aspect of the wrist. The right radial artery was accessed via the Seldinger technique. A 6 [place] sheath was placed in the right radial artery. 2.5 mg of Verapamil, 800 mcg of nitroglycerin, 1mg Lidocaine and 5000 U Heparin were given through the arterial sheath. 110 cm JR4 guide catheter was used to perform bilateral selective renal angiography. At the end of the right renal artery diagnostic angiogram therapeutic Was administered with therapeutic ACT and the guide catheter was placed in the right renal artery followed by Choice PT extra-support wire distally. A 5 mm x 38 mm Navdeep frontier stent was deployed at 20 shakeel reducing the stenosis. An additional 5 mm x 38 mm [place] frontier stent was placed distal to the for stent yet still overlapping and deployed at 22 shakeel. The balloon was brought back and deployed at 24 shakeel up and down the renal artery. Following this a 6 mm x 40 mm peripheral balloon was advanced and deployed at 18 shakeel to further post dilate the drug-eluting stents. At the end of the intervention there was wide patency of the right renal arteries with excellent angiographic results. This procedure was repeated in the left renal artery however the stents used were 6 mm x 18 mm Herculink stent placed in the mid to distal vessel and deployed at 18 shakeel. An additional 6 mm x 15 mm Herculink stent was placed proximal to the for stent yet still overlapping it and deployed at 18 shakeel. Excellent angiograph results were obtained. At the end of the procedure the apparatus was removed the sheath was removed and hemostasis was achieved and TR banding patient was transferred to the postop holding in stable condition ANGIOGRAPHIC RESULTS Right renal artery singular and has severe proximal through distal fibromuscular dysplastic lesions Left renal artery singular and has moderate to severe ostial proximal mid vessel and distal fibromuscular dysplastic lesions IMPRESSION Severe to critical bilateral fibromuscular dysplasia involving the renal arteries producing renal failure and malignant hypertension Successful percutaneous revascularization of the right renal artery and reconstruction of the right renal artery with 2 contiguous drug-eluting stents reducing the lesions to 0%. Successful percutaneous revascularization of the left renal artery using 2 contiguous bare-metal balloon mounted stents reducing the fibromuscular dysplastic lesions to 0% PLAN 1. Dual antiplatelet therapy 2. Patient should be admitted overnight due to her chronic renal failure and bilateral renal artery stenting procedure. She is at risk for hemodynamic lability and could experience either severe hypotension or possibly even malignant hypertension. 3. IV fluids, normal saline 125 an hour 4. Chem-8 in the morning 5. Supportive care and monitor overnight Electronically signed by : Eris Villegas MD 05/13/2023 11:12:51
[2023-05-13 08:38] LABS: Basophils # 0.1 K/mm3 (0-0.2); Basophils % 0.6 % (0.1-2.0); Eosinophils # 0.3 K/mm3 (0.0-0.4); Eosinophils % 2.8 % (0.1-12.0); Hematocrit 38.2 % (37.0-47.0); Hemoglobin 12.6 g/dL (12.2-16.2); Lymphocytes # 3.4 K/mm3 (0.7-4.5); Lymphocytes % 39.2 % (10-50); Mean Corpuscular HGB Conc 32.8 g/dL (31.8-35.4); Mean Corpuscular Hemoglobin 34.1 pg (27.0-31.2); Mean Corpuscular Volume 103.8 fl (81-99); Mean Platelet Volume 8.2 fl (7.4-10.4); Monocytes # 0.8 K/mm3 (0.1-1.0); Neutrophils # 4.2 K/mm3 (1.8-7.8); Neutrophils % 48.4 % (37.0-80.0); Platelet Count 241 K/mm3 (142-424); Red Blood Count 3.68 M/mm3 (4.20-5.40); Red Cell Distribution Width 13.5 % (11.5-17.5); White Blood Count 8.6 K/mm3 (4.8-10.8)
[2023-05-13 08:41] LABS: Chloride 109 mmol/L (98-107); Potassium 4.2 mmoL/L (3.5-5.1); Sodium 142 mmol/L (136-145)
[2023-05-13 08:44] LABS: Anion Gap 11.2 mEq/L (5-15); Blood Urea Nitrogen 28 mg/dl (7-17); Carbon Dioxide 26 mmol/L (22.0-30.0); Creatinine Clearance Estimated 30 mL/min (50-200); Estimated Glomerular Filt Rate 26 ml/min (>60); GFR (African American) 32 ML/MIN (>60)
[2023-05-13 08:45] LABS: Calcium 8.7 mg/dl (8.4-10.2); Glucose 100 mg/dl (74-100)
--- NOTE | 2023-05-13 11:41 | PC.NURSE ---
arrived by daryler from medical laboratory technician
--- NOTE | 2023-05-13 12:39 | EXP.HP ---
History of Present Illness *Admission Date: 05/13/23 *Reason for visit:: HTN, renal artery stenosis *History of present illness: 67-year-old female with malignant hypertension, CAD, tobacco use disorder, anxiety, COPD. Presents for outpatient elective procedure with renal arteriogram. Found to have bilateral fibromuscular dysplasia and significant stenosis. Status post stenting. 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 Patient in no distress at this time. Cardiology requested admission for monitoring overnight, gentle hydration, and adjustments to blood pressure regimen pending fluctuations in hypertension. Medicine agreed to admit. Patient denies any chest pain or shortness of breath. No nausea or vomiting. At baseline health at this time. Blood pressure 131/82 during exam. Findings during interventional procedure in Group Therapist today as follows: ANGIOGRAPHIC RESULTS Right renal artery singular and has severe proximal through distal fibromuscular dysplastic lesions Left renal artery singular and has moderate to severe ostial proximal mid vessel and distal fibromuscular dysplastic lesions IMPRESSION Severe to critical bilateral fibromuscular dysplasia involving the renal arteries producing renal failure and malignant hypertension Successful percutaneous revascularization of the right renal artery and reconstruction of the right renal artery with 2 contiguous drug-eluting stents reducing the lesions to 0%. Successful percutaneous revascularization of the left renal artery using 2 contiguous bare-metal balloon mounted stents reducing the fibromuscular dysplastic lesions to 0% PFS PFS Disclaimer: The information contained in this section may have been updated after the patient was seen, as this information can be updated by other users. Medical History Abnormal EKG Abnormal stress test Allergic rhinitis Atypical chest pain High cholesterol History of chest pain Hypertension Hypothyroid Multiple lung nodules on CT Paraseptal emphysema Pneumonia Smoking greater than 30 pack years Urinary tract infection Surgical History History of back surgery History of hysterectomy Tubal ligation status Family History No significant family history Social History Smoking Status: Current every day smoker alcohol intake: never substance use type: denies use current occupational status: retired Travel in the last 8 weeks: None household members: family housing: house Review of Systems Review of Systems Review of systems (narrative): 14 point review of systems performed, pertinent positives and negatives as per HPI Meds Home Medications and Allergies Home Medications Medication Instructions Recorded Confirmed Type mirtazapine 30 mg tablet 30 mg PO DAILY antidepressant 06/10/21 05/13/23 History duloxetine 30 mg capsule,delayed 30 mg PO BID Antidepressant 07/29/21 05/13/23 History release buspirone 15 mg tablet 15 mg PO TID Anxiety 01/28/23 05/13/23 History amlodipine 5 mg tablet (Norvasc) 5 mg PO DAILY 03/30/23 05/13/23 History levothyroxine 112 mcg tablet 112 mcg PO DAILY hypothyroidism 03/30/23 05/13/23 History lisinopril 20 mg tablet 20 mg PO DAILY 03/30/23 05/13/23 History pantoprazole 40 mg tablet,delayed 40 mg PO HS 03/30/23 05/13/23 History release gabapentin 300 mg capsule 600 mg PO BID Pain #120 caps 04/07/23 05/13/23 Rx oxycodone-acetaminophen 10 mg-325 1 tab PO QID MODERATE PAIN #120 04/07/23 05/13/23 Rx mg tablet tabs albuterol sulfate 90 mcg/actuation 2 puff inhalation Q4-6H PRN 05/13/23 05/13/23 History aerosol inhaler Shortness Of Breath aspirin 81 mg chewable tablet 81 mg PO DAILY #30 tabs 05/13/23 Rx atorvastatin 80 mg tablet 80 mg PO HS 05/13/23 05/13/23 History budesonide-formoterol HFA 80 1 puff inhalatio
--- NOTE | 2023-05-13 13:20 | HMH.PHAINT1 ---
Pharmacy Intervention Comments: home medication list verified using list from outpatient pharmacy
--- NOTE | 2023-05-13 14:29 | PC.NURSE ---
Right wrist dressing placed and area is c/d/i.
[2023-05-13 15:13] LABS: CATHL Activated Clotting Time 362 SEC (74-125)
[2023-05-14] VITALS: BP 125/69; PULSE 60; RESP 16; TEMP 36.8; O2SAT 95
[2023-05-14 04:00] VITALS: BP 125/77; PULSE 58; RESP 16; TEMP 36.6; O2SAT 93; BMI 26.3
--- NOTE | 2023-05-14 05:54 | PC.NURSE ---
PATIENT RECEIVED PERCOCET AT 2214 FOR C/O BACK PAIN/KNEE PAIN 01/24 AND WAS EFFECTIVE. RECTAL SWAB FOR CRE OBTAINED AND SENT TO LAB. DRSG TO RIGHT RADIAL C/D/I. SON AT BEDSIDE.
[2023-05-14 06:20] VITALS: O2SAT 90
--- NOTE | 2023-05-14 07:28 | EXP.DC.SUM ---
General Admission date:: 05/13/23 Discharge date: 05/14/23 HPI HPI HPI: 67-year-old female with malignant hypertension, CAD, tobacco use disorder, anxiety, COPD. Presents for outpatient elective procedure with renal arteriogram. Found to have bilateral fibromuscular dysplasia and significant stenosis. Status post stenting. 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 Patient in no distress at this time. Cardiology requested admission for monitoring overnight, gentle hydration, and adjustments to blood pressure regimen pending fluctuations in hypertension. Medicine agreed to admit. Patient denies any chest pain or shortness of breath. No nausea or vomiting. At baseline health at this time. Blood pressure 131/82 during exam. Findings during interventional procedure in [employer] today as follows: ANGIOGRAPHIC RESULTS Right renal artery singular and has severe proximal through distal fibromuscular dysplastic lesions Left renal artery singular and has moderate to severe ostial proximal mid vessel and distal fibromuscular dysplastic lesions IMPRESSION Severe to critical bilateral fibromuscular dysplasia involving the renal arteries producing renal failure and malignant hypertension Successful percutaneous revascularization of the right renal artery and reconstruction of the right renal artery with 2 contiguous drug-eluting stents reducing the lesions to 0%. Successful percutaneous revascularization of the left renal artery using 2 contiguous bare-metal balloon mounted stents reducing the fibromuscular dysplastic lesions to 0% Hospital Course Hospital Course Hospital Course: Ms. Clark is a 67-year-old female who presented for outpatient bilateral renal arteriogram. Found to have fibromuscular dysplasia and bilateral stenosis. Status post stenting. Noted to have LOLIS and at risk for significant fluctuations in blood pressure. Cardiology requested admission. Discussed case, risk for worsening LOLIS given contrast load and need to monitor blood pressure closely. Medicine agreed to admit for observation overnight and further management. Stable on room air. Blood pressure within normal range during admission. Stable for discharge home. Adjustments as below. Problems addressed as follows: LOLIS -Creatinine 1.9 on admission, baseline 1.5. Gentle hydration with LR at 100 cc an hour overnight. Creatinine improved to 1.6 on day of discharge. Bilateral renal artery stenosis Status post stenting bilateral renal arteries -Successful stenting of bilateral renal arteries. Initiate dual antiplatelet therapy with aspirin 81 mg and Plavix 75 mg daily. Close follow-up with cardiology for further adjustments to medications. Hyperlipidemia: Continue Lipitor 80mg nightly Hypertension: Continue home regimen of amlodipine and metoprolol, hold lisinopril pending follow-up with cardiology. COPD: Continue home inhaler, refill sent.. Hypothyroid: Continue levothyroxine 112 mcg daily; TSH pending GERD: pantoprazole 40 hours nightly Anxiety/depression: Continue BuSpar 15 mg 3 times a day, 30 mg mirtazapine daily, and duloxetine 30 mg twice daily Neuropathy: Continue gabapentin per home regimen at discharge. Dose was decreased during admission to 300 mg twice daily Stable for discharge home. Close follow-up with cardiology. Exam Data for Last 24 hours Vital signs and Labs for Last 24 Hours: Temp Pulse Resp BP Pulse Ox O2 Del Method O2 Flow Rate 98 F 58 L 16 125/77 90 L Room Air 94 05/14/23 04:00 05/14/23 04:00 05/14/23 04:00 05/14/23 04:00 05/14/23 06:20 05/14/23 06:32 05/13/23 13:55 Laboratory Results - last 24 hr 05/13/23 08:29: WBC 8.6, RBC 3.68 L, Hgb 12.6, Hct 38.2, MCV 103.8 H, MCH 34.1 H, MCHC 32.8, RDW 13.5, Plt Count 241, MPV 8.2, Neut % (Auto) 48.4, Lymph % (Auto) 39.2, [place] % (Auto) 9.0, Eos % (Auto) 2.8, Baso % (Auto) 0.6, Neut # (Auto) 4.2, Lymph # (Auto) 3.4, [place] # (Auto) 0.8, Eos # (Auto) 0.3, Baso # (Auto) 0.1, Sodium 142, Potassium 4.2, Ch
--- NOTE | 2023-05-14 07:29 | ECG_ITS ---
APPROVED REPORT Exam: Resting ECG HR:62 bpm ECG Measurements Heart Rate 62 AXES NJ 144 P 53 QRSd 101 QRS 41 QT 421 T 51 QTc 425 Conclusion SINUS RHYTHM NORMAL ECG UNCONFIRMED REPORT Electronically signed by : Richard Curiel MD 05/14/2023 18:58:33
[2023-05-14 07:37] VITALS: BP 159/84; PULSE 65; RESP 20; TEMP 37.6; O2SAT 94
[2023-05-14 09:32] LABS: Basophils % 0.4 % (0.1-2.0); Eosinophils # 0.2 K/mm3 (0.0-0.4); Eosinophils % 2.7 % (0.1-12.0); Hematocrit 35.2 % (37.0-47.0); Hemoglobin 11.6 g/dL (12.2-16.2); Lymphocytes # 2.1 K/mm3 (0.7-4.5); Lymphocytes % 24.9 % (10-50); Mean Corpuscular HGB Conc 32.8 g/dL (31.8-35.4); Mean Corpuscular Hemoglobin 33.5 pg (27.0-31.2); Monocytes # 0.5 K/mm3 (0.1-1.0); Monocytes % 6.5 % (1.7-9.3); Neutrophils # 5.5 K/mm3 (1.8-7.8); Neutrophils % 65.5 % (37.0-80.0); Platelet Count 206 K/mm3 (142-424); Red Blood Count 3.45 M/mm3 (4.20-5.40); Red Cell Distribution Width 13.6 % (11.5-17.5); White Blood Count 8.3 K/mm3 (4.8-10.8)
[2023-05-14 09:48] LABS: Chloride 107 mmol/L (98-107); Potassium 3.8 mmoL/L (3.5-5.1); Sodium 138 mmol/L (136-145)
[2023-05-14 09:51] LABS: Alanine Aminotransferase 18 U/L (12-78); Albumin Level 3.3 g/dl (3.5-5.0); Albumin/Globulin Ratio 1.4 (1.1-1.8); Alkaline Phosphatase 65 U/L (38-126); Anion Gap 10.8 mEq/L (5-15); Aspartate Amino Transferase 26 U/L (14-36); Blood Urea Nitrogen 22 mg/dl (7-17); Calcium 8.6 mg/dl (8.4-10.2); Carbon Dioxide 24 mmol/L (22.0-30.0); Creatinine Clearance Estimated 38 mL/min (50-200); Estimated Glomerular Filt Rate 32 ml/min (>60); GFR (African American) 39 ML/MIN (>60); Globulin 2.3 g/dL (1.3-3.2); Glucose 136 mg/dl (74-100); Magnesium 1.1 mg/dl (1.6-2.3); Total Protein,Serum 5.6 g/dl (6.3-8.2)
[2023-05-14 10:06] LABS: Bilirubin,Total 0.1 mg/dl (0.2-1.3)
[2023-05-14 11:56] VITALS: BP 148/82
--- NOTE | 2023-05-16 17:28 | CARE MANAGER ---
Contacted patient related to hospital discharge. Patient states she already had an appointment with Dr. Gerard on the 1st scheduled and she is aware of cardiology appointment. She has her new medications as well and denies any questions or concerns. NISHI Lin
== END 2023-05-14 12:12 | disposition home or self-care (01) ==
LOC: 2ND 12:24
PROVIDERS: Admitting Provider Internal Medicine Adolescent Medicine; PCP Emergency Medicine; Referring Provider Internal Medicine; Visit Provider Internal Medicine Adolescent Medicine
DX: I77.3 Arterial fibromuscular dysplasia (principal); I77.1 Stricture of artery; N18.9 Chronic kidney disease, unspecified; N17.9 Acute kidney failure, unspecified; E78.5 Hyperlipidemia, unspecified; R39.9 Unspecified symptoms and signs involving the genitourinary system; I70.1 Atherosclerosis of renal artery; R94.39 Abnormal result of other cardiovascular function study; E03.9 Hypothyroidism, unspecified; F41.9 Anxiety disorder, unspecified; F32.9 Major depressive disorder, single episode, unspecified; E78.2 Mixed hyperlipidemia; F17.210 Nicotine dependence, cigarettes, uncomplicated; J44.9 Chronic obstructive pulmonary disease, unspecified; I12.9 Hypertensive chronic kidney disease with stage 1 through stage 4 chronic kidney disease, or unspecified chronic kidney disease; Z79.899 Other long term (current) drug therapy
CPT/HCPCS: 36415; 37236; 37237; 80048; 80053; 83735; 85025; 85347; 87081; 93005; 94640; 99152; 99153; C1725; C1769; C1876; G0378; J1644; Q9967

== ENCOUNTER → 2023-05-18 23:37 | Outpatient (CLI) | payer MEDICARE, SELFPAY ==
[2023-05-18 20:25] LABS: Amphetamine/Metha Screen,Urine Negative ng/ml (<1000)
[2023-05-18 20:26] LABS: Barbiturates Screen,Urine Negative ng/ml (<200); Benzodiazepines Screen,Urine Negative ng/ml (<200)
[2023-05-18 20:27] LABS: Cannabinoid Screen,Urine Positive ng/ml (<50)
[2023-05-18 20:28] LABS: Cocaine Screen,Urine Negative ng/ml (<300); Methadone Screen,Urine Negative ng/ml (<300)
[2023-05-18 20:29] LABS: Opiate Screen,Urine Negative ng/ml (<300)
[2023-05-18 20:30] LABS: Phencyclidine Screen,Urine Negative ng/ml (<25)
== END ==
PROVIDERS: PCP Emergency Medicine; Visit Provider Emergency Medicine
DX: G89.29 Other chronic pain (principal); Z79.899 Other long term (current) drug therapy
CPT/HCPCS: 80305

== ENCOUNTER → 2023-05-23 09:42 | Outpatient (CLI) | payer MEDICARE, SELFPAY ==
[2023-05-23 10:30] LABS: Basophils % 0.2 % (0.1-2.0); Eosinophils # 0.2 K/mm3 (0.0-0.4); Eosinophils % 2.1 % (0.1-12.0); Hematocrit 38.8 % (37.0-47.0); Hemoglobin 13.2 g/dL (12.2-16.2); Lymphocytes # 1.7 K/mm3 (0.7-4.5); Mean Corpuscular Hemoglobin 34.1 pg (27.0-31.2); Mean Corpuscular Volume 100.5 fl (81-99); Mean Platelet Volume 6.9 fl (7.4-10.4); Monocytes # 0.4 K/mm3 (0.1-1.0); Monocytes % 5.3 % (1.7-9.3); Neutrophils # 5.8 K/mm3 (1.8-7.8); Neutrophils % 71.4 % (37.0-80.0); Platelet Count 269 K/mm3 (142-424); Red Blood Count 3.87 M/mm3 (4.20-5.40); Red Cell Distribution Width 13.2 % (11.5-17.5); White Blood Count 8.1 K/mm3 (4.8-10.8)
[2023-05-23 11:30] LABS: Blood Urea Nitrogen 23 mg/dl (7-17); Estimated Glomerular Filt Rate 30 ml/min (>60); GFR (African American) 36 ML/MIN (>60)
[2023-05-23 12:00] VITALS: PULSE 68; PULSE 70
[2023-05-28 03:10] LABS: D001-IgE D pteronyssinus <0.10 kU/L (Class 0); D002-IgE D farinae <0.10 kU/L (Class 0); E001-IgE Cat Dander <0.10 kU/L (Class 0); E005-IgE Dog Dander <0.10 kU/L (Class 0); E072-IgE Mouse Urine <0.10 kU/L (Class 0); G002-IgE Bermuda Grass <0.10 kU/L (Class 0); G006-IgE Timothy Grass <0.10 kU/L (Class 0); I006-IgE Cockroach, German <0.10 kU/L (Class 0); Immunoglobulin E, Total 331 IU/mL (6-495); M001-IgE Penicillium chrysogen <0.10 kU/L (Class 0); M002-IgE Cladosporium herbarum <0.10 kU/L (Class 0); M003-IgE Aspergillus fumigatus <0.10 kU/L (Class 0); M006-IgE Alternaria alternata <0.10 kU/L (Class 0); T001-IgE Maple/Box Elder <0.10 kU/L (Class 0); T003-IgE Common Silver Birch <0.10 kU/L (Class 0); T006-IgE Cedar, Mountain <0.10 kU/L (Class 0); T007-IgE Oak, White <0.10 kU/L (Class 0); T008-IgE Elm, American <0.10 kU/L (Class 0); T010-IgE Walnut <0.10 kU/L (Class 0); T011-IgE Maple Leaf Sycamore <0.10 kU/L (Class 0); T014-IgE Cottonwood <0.10 kU/L (Class 0); T015-IgE Ash, White <0.10 kU/L (Class 0); T022-IgE Pecan, Hickory <0.10 kU/L (Class 0); T070-IgE White Mulberry <0.10 kU/L (Class 0); W001-IgE Ragweed, Short <0.10 kU/L (Class 0); W011-IgE Thistle, Russian <0.10 kU/L (Class 0); W014-IgE Pigweed, Common <0.10 kU/L (Class 0); W018-IgE Sheep Sorrel <0.10 kU/L (Class 0)
== END ==
PROVIDERS: Internal Medicine; PCP Emergency Medicine; Visit Provider Internal Medicine Pulmonary Disease
DX: R06.09 Other forms of dyspnea (principal); J45.909 Unspecified asthma, uncomplicated; J43.8 Other emphysema; F17.201 Nicotine dependence, unspecified, in remission
CPT/HCPCS: 36415; 82565; 82785; 84520; 85025; 86003; 94060; 94618; 94640; 94727; 94729

== ENCOUNTER 2023-07-21 10:31 | Outpatient (CLI) | payer MEDICARE, SELFPAY ==
[2023-07-21 19:56] LABS: Amphetamine/Metha Screen,Urine Negative ng/ml (<1000); Barbiturates Screen,Urine Negative ng/ml (<200); Benzodiazepines Screen,Urine Negative ng/ml (<200); Cannabinoid Screen,Urine Positive ng/ml (<50); Cocaine Screen,Urine Negative ng/ml (<300); Methadone Screen,Urine Negative ng/ml (<300); Opiate Screen,Urine Positive ng/ml (<300); Phencyclidine Screen,Urine Negative ng/ml (<25)
[2023-07-26 12:12] LABS: Opiates Negative (Cutoff=100); Oxycodone (GC/MS) 1704 ng/mL (Cutoff=100); Oxymorphone (GC/MS) 181 ng/mL (Cutoff=100)
[2023-07-28 13:21] LABS: Gabapentin,Urine 788.8 ug/mL (.)
== END 2023-07-21 23:59 ==
LOC: LAB.DROPOF 07-22 10:38
PROVIDERS: PCP Family Medicine; Visit Provider Family Medicine
DX: Z79.899 Other long term (current) drug therapy (principal)
CPT/HCPCS: 80307; 80361; 80365; G0480

== ENCOUNTER 2023-08-31 07:50 | Outpatient (CLI) | payer MEDICARE, SELFPAY ==
--- NOTE | 2023-08-31 07:51 | US_ITS ---
FINAL REPORT CLINICAL HISTORY: gallbladder polyps COMPARISON: None FINDINGS: Sonographic images of the right upper quadrant were obtained. The pancreas is partially obscured.The liver has an unremarkable appearance. There is a 9 mm presumed polyp near the gallbladder neck. No well-defined stones are seen. There is no evidence of biliary ductal dilatation.The common duct measures 7 mm which is at the upper limits of normal. There is a right kidney 2.4 cm cyst. IMPRESSION: Polyp in the neck of the gallbladder. Common duct at the upper limits of normal. Right renal cyst. Reviewed, Interpreted and Dictated by Scar Kruger III, MD Transcribed by Emy Grace Authenticated and . [facility]
[2023-08-31 20:16] LABS: Alanine Aminotransferase 15 U/L (12-78); Albumin Level 4.1 g/dl (3.5-5.0); Albumin/Globulin Ratio 1.6 (1.1-1.8); Alkaline Phosphatase 78 U/L (38-126); Anion Gap 14.3 mEq/L (5-15); Aspartate Amino Transferase 24 U/L (14-36); Bilirubin,Total 0.4 mg/dl (0.2-1.3); Blood Urea Nitrogen 15 mg/dl (7-17); Calcium 8.4 mg/dl (8.4-10.2); Carbon Dioxide 25 mmol/L (22.0-30.0); Chloride 107 mmol/L (98-107); Estimated Glomerular Filt Rate 30 ml/min (>60); GFR (African American) 36 ML/MIN (>60); Globulin 2.6 g/dL (1.3-3.2); Glucose 76 mg/dl (74-100); Potassium 4.3 mmoL/L (3.5-5.1); Sodium 142 mmol/L (136-145); Total Protein,Serum 6.7 g/dl (6.3-8.2)
[2023-08-31 21:07] LABS: Vitamin B12 200 pg/mL (239-931)
== END 2023-08-31 23:59 ==
LOC: RAD 07:51
PROVIDERS: Family Medicine; PCP Internal Medicine; Visit Provider Surgery
DX: K80.20 Calculus of gallbladder without cholecystitis without obstruction (principal); N18.9 Chronic kidney disease, unspecified; E53.8 Deficiency of other specified B group vitamins
CPT/HCPCS: 76705; 80053; 82607

== ENCOUNTER 2023-09-13 14:46 | Outpatient (CLI) | payer MEDICARE, SELFPAY ==
--- NOTE | 2023-09-13 14:46 | MM_ITS ---
PROCEDURE INFORMATION: Exam: MG Bilateral Screening 3D Mammography Exam date and time: 09/13/2023 2:33 PM Age: 68 years old Clinical indication: Screening examination; Additional info: Breast CA TECHNIQUE: Imaging protocol: Bilateral Screening tomosynthesis and 2D mammography including computer-aided detection (CAD) when performed. COMPARISON: 1. MG MM DIG SCREENING MAMM BI W/CAD 02/11/2022 3:54 PM 2. MG DMSB DIGITAL MAMM-SCREEN BILATERAL 08/28/2012 1:41 PM FINDINGS: MAMMOGRAPHY: Breast composition: There are scattered areas of fibroglandular density. Mass: No suspicious masses. Architectural distortion: No suspicious distortion. Calcifications: No suspicious calcifications. Asymmetric density: None. Skin thickening: None. Axillary adenopathy: None. IMPRESSION: No mammographic evidence of malignancy. Annual screening is recommended unless otherwise clinically indicated. ASSESSMENT: BI-RADS Category 1: Negative
--- NOTE | 2023-09-13 14:46 | CT_ITS ---
FINAL REPORT TECHNIQUE: Axial images were obtained from the lung apex to the mid abdomen by computed tomography. This study was performed with techniques to keep radiation doses as low as reasonably achievable (ALARA). Individualized dose reduction techniques using automated exposure control or adjustment of mA and/or kV according to the patient's size were employed. CLINICAL HISTORY: lung cancer screening smoker, 1 ppd x 50 years COMPARISON: 09/09/2022 FINDINGS: CHEST CT LOW DOSE CTDI vol (mGy): 2.90 DLP (mGy-cm): 99.25 There is no axillary adenopathy. There is no hilar or mediastinal adenopathy. The heart is normal in size. There is no pericardial or pleural effusion. Note is made of emphysema. Bilateral apical scarring is stable. There is a 3 mm subpleural right upper lobe nodule well seen on image 29. This is stable from prior. There is also a stable medial right upper lobe nodule well seen on image 24. Several additional 4 mm or less pulmonary nodules are unchanged. No new nodule is identified. Limited images of the upper abdomen demonstrate gallstones. IMPRESSION: Stable pulmonary nodules. Cholelithiasis. Lung RADS category 2. Recommend 12 month follow-up low-dose chest CT. Reviewed, Interpreted and Dictated by Annie Tran MD Transcribed by Vandana Cevallos Authenticated and . [facility]
== END 2023-09-13 23:59 ==
LOC: RAD 14:46
PROVIDERS: PCP Internal Medicine; Visit Provider Family Medicine
DX: F17.210 Nicotine dependence, cigarettes, uncomplicated (principal); Z12.31 Encounter for screening mammogram for malignant neoplasm of breast; Z12.2 Encounter for screening for malignant neoplasm of respiratory organs
CPT/HCPCS: 71271; 77063; 77067

== ENCOUNTER 2023-10-10 11:06 | Outpatient (POV) | payer MEDICARE, SELFPAY ==
--- NOTE | 2023-10-10 11:08 | A.OFFVIS_ITS ---
HPI Data of Consult Patient: new to practice Consult date: 10/10/23 Requesting Physician: Carla Trevizo APRN Primary Care Provider: Maxx Avelar DO Consult Narrative Reason for consult: Back pain History of present illness: Ms. Clark is a 68 year old female who presents today as a new patient. She is a referral from Ayse Roth's office. Today she rates her pain a 8 out of 10. Patient states she has pain throughout her low back and hips. Patient states this been going on for years unrelated to any specific trauma or injury. She states that it is at least been since 1994. She describes it as an aching, throbbing sensation with some numbness and tingling. She states the pain is worse with increased activity or ambulation. She states frequently prolonged standing or sitting too long will aggravate her symptoms. Patient has tried [id number] Tylenol and ibuprofen along with heat and ice and topicals with minimal relief. Patient has done physical therapy in the past and states that it would help some temporarily. She states that she did even have injections prior to her back surgery however these seem to worsen her pain. She states she then had a surgical procedure for her low back that did involve plate and screws back in however she is unsure of the specific surgery or the provider that did this procedure. Patient does state that Dr. Gerard ended up putting her on [place] and then switched to oxycodone in the past however when Dr. El's office took over that she was requested to come in for a pill count and she was unable to and so she is no longer on these medications. Patient does state that even in the past Dr. Gerard had talked about coming to our office for possible pain pump intervention. Patient is very interested in this option. Patient does state that she did recently have to have renal stents in May 2023 and is on blood thinner currently.Patient is currently managed with gabapentin 800 mg twice a day and Percocet 10 mg 4 times a day from an outside provider. Patient denies any side effects from these medications. Her Herb has been reviewed and is appropriate. CC: Carla Trevizo APRN [facility] Disclaimer: The information contained in this section may have been updated after the patient was seen, as this information can be updated by other users. Medical History CKD (chronic kidney disease) Bilateral renal artery stenosis Abnormal renal finding Multiple lung nodules on CT Smoking greater than 30 pack years Allergic rhinitis Paraseptal emphysema Abnormal stress test Atypical chest pain Abnormal EKG Urinary tract infection Pneumonia Hypothyroid History of chest pain High cholesterol Hypertension Surgical History History of renal stent History of back surgery History of hysterectomy Tubal ligation status Family History Other No significant family history Social History Smoking Status: Current every day smoker alcohol intake: never substance use type: denies use current occupational status: retired Travel in the last 8 weeks: None household members: family housing: house Review of Systems Review of Systems Review of systems:: pertinent systems reviewed and negative unless documented below Review of systems (narrative): Review of Systems: General: No recent weight changes, no fever, no sleep disturbances Respiratory: No cough, no shortness of air, no recurring pulmonary infections Cardiovascular/peripheral vascular: No chest pain, no palpitations, no edema, no shortness of breath Gastrointestinal: No new onset incontinence, normal bowel movements reported Genitourinary: No new onset incontinence Musculoskeletal: Chronic low back pain, bilateral hip pain Psychiatric: [Normal mood/affect] Neurological: [Denies weakness in extremities], [denies balance issues] Meds Home Medications and Allergies Home Medications Medication Instructions Recorded Confirmed Type albuterol sulfate 90 mcg/actuation 2 puff inhalation Q4-6H PRN 08/31/23 09/21/23 Rx aerosol inhaler Shortness Of Breath #8.5 grams amlodipine 10 mg tablet 10 mg PO DAILY #90 tabs 08/31/23 09/21/23 Rx aspirin 81 mg chewable tablet 81 mg PO DAILY #30 tabs 08/31/23 09/21/23 Rx atorvastatin 80 mg tablet 80 mg PO HS #90 tabs 08/31/23 09/21/23 Rx budesonide-formoterol HFA 80 See Rx Instructions .Route 08/31/23 09/21/23 Rx mcg-4.5 mcg/actuation aerosol .COMPLEX #10.2 grams inhaler (Symbicort) carbamide peroxide 6.5 % ear drops 5 drp otic (ear) BID 4 days #15 mL 08/31/23 09/21/23 Rx (Debrox) clopidogrel 75 mg tablet (Plavix) 75 mg PO DAILY #30 tabs 08/31/23 09/21/23 Rx duloxetine 60 mg capsule,delayed 60 mg PO DAILY #30 caps 08/31/23 09/21/23 Rx release gabapentin 800 mg tablet 800 mg PO BID #60 tabs 08/31/23 09/21/23 Rx levothyroxine 112 mcg tablet See Rx Instructions .Route 08/31/23 09/21/23 Rx .COMPLEX #90 tabs metoprolol tartrate 100 mg tablet See Rx Instructions .Route 08/31/23 09/21/23 Rx .COMPLEX #180 tabs mirtazapine 30 mg tablet 30 mg PO DAILY antidepressant #30 08/31/23 09/21/23 Rx tabs pantoprazole 40 mg tablet,delayed See Rx Instructions .Route 08/31/23 09/21/23 Rx release .COMPLEX #90 tabs cyanocobalamin (vitamin B-12) 5,000 mcg sublingual DAILY #30 tabs 09/02/23 09/21/23 Rx 5,000 mcg sublingual tablet promethazine 25 mg tablet See Rx Instructions .Route 10/03/23 Rx .COMPLEX #30 tabs New Prescriptions to Start Prescriptions: Allergies Allergy/AdvReac Type Severity Reaction Status Date / Time No Known Allergies Allergy Verified 09/21/23 10:55 Objective Narrative: Physical Exam: General: Alert and oriented x3, no acute distress, pleasant and cooperative Lungs: Respirations even and unlabored, symmetrical chest expansion Eyes: PERRL Musculoskeletal: Flexion and extension of lumbar [spine] somewhat guarded secondary to pain, [antalgic gait noted] point tenderness along bilateral greater trochanteric bursa's and extreme point tenderness along right SI Neurological: Speech clear, no gross sensory deficit Additional findings Additional findings: FINDINGS: Five views were obtained. There is posterior and interbody fusion of L4-L5 and L5-S1. There is no acute fracture. There is mild lumbar scoliosis convex to the right. There is no malalignment. There is moderate disc space narrowing at L1-L2, L2-L3, and L3-L4. IMPRESSION: Postoperative and degenerative changes. Reviewed, Interpreted and Dictated by Dilshad Byers MD Transcribed by Donis Nj Authenticated and [facility] Assessment and Plan *Assessment and plan (1) Low back pain: Status: Acute Qualifiers: Chronicity: chronic Back pain laterality: bilateral Sciatica presence: with sciatica Sciatica laterality: sciatica of right side Qualified Code(s): M54.41 - Lumbago with sciatica, right side; G89.29 - Other chronic pain Category: Medical Code(s): M54.50 - Low back pain, unspecified (2) Chronic pain syndrome: Status: Acute Category: Medical Code(s): G89.4 - Chronic pain syndrome (3) Bilateral hip pain: Status: Acute Category: Medical Code(s): M25.551 - Pain in right hip; M25.552 - Pain in left hip (4) Sacroiliitis: Status: Acute Category: Medical Code(s): M46.1 - Sacroiliitis, not elsewhere classified (5) Degenerative disc disease, lumbar: Status: Acute Category: Medical Code(s): M51.36 - Other intervertebral disc degeneration, lumbar region (6) History of lumbar fusion: Status: Acute Category: Surgical Code(s): Z98.1 - Arthrodesis status Plan Patient is experiencing significant pain in multiple places including her low back and bilateral hips. I have discussed with patient in future she may benefit from lumbar facet or SI injections. I have counseled her that with her history of having some injections that made her pain worse that this is optional and just let us know if she would like to proceed forward with this option. I did discuss that she may be a beneficial candidate of the intrathecal pain pump trial. Risk and benefits and educational handouts were given to the patient during today's visit. Patient would like to proceed forward with this plan of care. I will order the patient a psychological evaluation and if she is deemed an appropriate candidate we will proceed forward with a trial at a later date. Patient will return to clinic in 1 month for reevaluation of symptoms and plan of care. Patient has been instructed to contact the clinic with any concerns before the next appointment. Dr. Hastings has reviewed this note and agrees with this plan of care. This note was dictated using voice recognition software and make contain errors or omissions.
[2023-10-10 11:42] VITALS: BP 130/65; PULSE 80; RESP 18; TEMP 36.8; O2SAT 98; BMI 20.1
== END 2023-10-10 23:59 ==
LOC: SC.PAIN 11:07
PROVIDERS: PCP Internal Medicine; Visit Provider Nurse Practitioner Family
DX: M54.41 Lumbago with sciatica, right side (principal); G89.4 Chronic pain syndrome; M25.551 Pain in right hip; M25.552 Pain in left hip; M46.1 Sacroiliitis, not elsewhere classified; M51.36 Other intervertebral disc degeneration, lumbar region; Z98.1 Arthrodesis status
CPT/HCPCS: 99202; G0463

== ENCOUNTER 2023-11-16 14:57 | Outpatient (POV) | payer MEDICARE, SELFPAY ==
[2023-11-16 15:12] VITALS: BP 140/71; PULSE 61; RESP 18; O2SAT 98; BMI 26.4
--- NOTE | 2023-11-16 15:48 | EXP.PAIN.SOA ---
[facility] Pain Management SOAP Note Subjective:: Patient is a pleasant 68-year-old female who presents today for follow-up of psychological evaluation. Today is her pain a 6 out of 10. Patient denies any new trauma or injury. Patient states that she does want to proceed forward with the spinal cord stimulator. She states that she has minimal quality of life due to her chronic pain symptoms. Patient was previously prescribed gabapentin and Percocet from Dr. Gerard's office however due to her inability to come in for random pill counts this medication was stopped after Dr. Gerard left and was never started back with her current PCP. Patient is prescribed gabapentin from an outside provider. Her Herb has been reviewed and is appropriate. Review of Systems: General: No recent weight changes, no fever, no sleep disturbances Respiratory: No cough, no shortness of air, no recurring pulmonary infections Cardiovascular/peripheral vascular: No chest pain, no palpitations, no edema, no shortness of breath Gastrointestinal: No new onset incontinence, normal bowel movements reported Genitourinary: No new onset incontinence Musculoskeletal: Low back pain Psychiatric: [Normal mood/affect] Neurological: [Denies weakness in extremities], [denies balance issues] Objective:: Physical Exam: General: Alert and oriented x3, no acute distress, pleasant and cooperative Lungs: Respirations even and unlabored, symmetrical chest expansion Eyes: PERRL Musculoskeletal: Flexion and extension of lumbar [spine] somewhat guarded secondary to pain, [antalgic gait noted] Neurological: Speech clear, no gross sensory deficit Assessment:: Degenerative disc disease of lumbar spine , sacroiliitis, bilateral hip pain, history of lumbar fusion, chronic pain syndrome Plan:: I have reviewed over the psychological evaluation findings and did discuss at length the evaluation stated that she was not mentally stable due to severe anxiety and depression indicated on her self inventory paperwork. Patient does state that she is very frustrated because she was told by the provider that she was an appropriate candidate. I have discussed that it may be very beneficial to go back to her primary care doctor or her psychologist to have her previously on BuSpar and see whether or not if there are other medication combinations that may work better for her to help control the symptoms more effectively. I have counseled the patient that we can try again down the road when she feels more emotionally stable with her anxiety and depression. I will order the patient a compounded cream. Patient will return to clinic in 1 month for reevaluation of symptoms and plan of care. Patient has been instructed to contact the clinic with any concerns before the next appointment. Dr. Hastings has reviewed this note and agrees with this plan of care. This note was dictated using voice recognition software and make contain errors or omissions. [facility] Disclaimer: The information contained in this section may have been updated after the patient was seen, as this information can be updated by other users. Medical History CKD (chronic kidney disease) Bilateral renal artery stenosis Abnormal renal finding Multiple lung nodules on CT Smoking greater than 30 pack years Allergic rhinitis Paraseptal emphysema Abnormal stress test Atypical chest pain Abnormal EKG Urinary tract infection Pneumonia Hypothyroid History of chest pain High cholesterol Hypertension Surgical History History of renal stent History of back surgery History of hysterectomy Tubal ligation status Family History Other No significant family history Social History Smoking Status: Current every day smoker alcohol intake: never substance use type: denies use current occupational status: other Travel in the last 8 weeks: None household members: family housing: house
== END 2023-11-16 23:59 | disposition home or self-care (01) ==
LOC: SC.PAIN 14:57
PROVIDERS: PCP Family Medicine; Visit Provider Nurse Practitioner Family
DX: M51.36 Other intervertebral disc degeneration, lumbar region (principal); M46.1 Sacroiliitis, not elsewhere classified; M25.551 Pain in right hip; M25.552 Pain in left hip; M43.26 Fusion of spine, lumbar region; G89.4 Chronic pain syndrome
CPT/HCPCS: 99212; G0463

== ENCOUNTER 2024-02-29 08:00 | Outpatient (CLI) | payer MEDICARE, SELFPAY ==
[2024-02-29 19:08] LABS: Alanine Aminotransferase 14 U/L (12-78); Albumin Level 4.2 g/dl (3.5-5.0); Albumin/Globulin Ratio 1.4 (1.1-1.8); Alkaline Phosphatase 101 U/L (38-126); Anion Gap 13.6 mEq/L (5-15); Aspartate Amino Transferase 22 U/L (14-36); Bilirubin,Total 0.5 mg/dl (0.2-1.3); Blood Urea Nitrogen 30 mg/dl (7-17); Calcium 9.6 mg/dl (8.4-10.2); Carbon Dioxide 19 mmol/L (22.0-30.0); Chloride 107 mmol/L (98-107); Chol/HDL Ratio 2.3 (1-3.5); Cholesterol 139 mg/dl (140-200); Estimated Glomerular Filt Rate 23 ml/min (>60); GFR (African American) 28 ML/MIN (>60); Globulin 2.9 g/dL (1.3-3.2); Glucose 109 mg/dl (74-100); HDL Cholesterol 61 mg/dl (40-60); Potassium 4.6 mmoL/L (3.5-5.1); Sodium 135 mmol/L (136-145); Total Protein,Serum 7.1 g/dl (6.3-8.2); Triglycerides 91 mg/dl (30-150); VLDL Cholesterol 18 mg/dL (0-40)
[2024-02-29 19:24] LABS: Direct LDL Cholesterol 47.76 mg/dL (100-129)
[2024-02-29 19:32] LABS: Basophils % 0.6 % (0.1-2.0); Eosinophils # 0.1 K/mm3 (0.0-0.4); Eosinophils % 1.5 % (0.1-12.0); Hematocrit 44.9 % (37.0-47.0); Hemoglobin 13.9 g/dL (12.2-16.2); Lymphocytes # 1.5 K/mm3 (0.7-4.5); Lymphocytes % 21.1 % (10-50); Mean Corpuscular HGB Conc 30.9 g/dL (31.8-35.4); Mean Corpuscular Hemoglobin 31.7 pg (27.0-31.2); Mean Corpuscular Volume 102.5 fl (81-99); Mean Platelet Volume 8.6 fl (7.4-10.4); Monocytes # 0.5 K/mm3 (0.1-1.0); Monocytes % 6.7 % (1.7-9.3); Neutrophils # 4.8 K/mm3 (1.8-7.8); Neutrophils % 70.1 % (37.0-80.0); Platelet Count 295 K/mm3 (142-424); Red Blood Count 4.39 M/mm3 (4.20-5.40); Red Cell Distribution Width 13.4 % (11.5-17.5); White Blood Count 6.9 K/mm3 (4.8-10.8)
[2024-02-29 19:58] LABS: T4 (Thyroxine) 15.3 ug/dl (5.53-11.0); Triiodothryronine (T3) Uptake 33 % (23.5-40.5)
[2024-02-29 20:01] LABS: 25-OH Vitamin D, Total < 12.8 ng/mL (30-100)
[2024-02-29 20:03] LABS: Vitamin B12 > 1000 pg/mL (239-931)
[2024-02-29 20:12] LABS: Thyroid Stimulating Hormone 0.06 uIU/mL (0.465-4.68)
[2024-02-29 21:11] LABS: Hemoglobin A1C 5.5 % (4.0-6.0)
== END 2024-02-29 23:59 | disposition home or self-care (01) ==
LOC: LAB.DROPOF 03-01 12:36
PROVIDERS: PCP Family Medicine; Visit Provider Family Medicine
DX: E11.22 Type 2 diabetes mellitus with diabetic chronic kidney disease (principal); E78.5 Hyperlipidemia, unspecified; I12.9 Hypertensive chronic kidney disease with stage 1 through stage 4 chronic kidney disease, or unspecified chronic kidney disease; N18.9 Chronic kidney disease, unspecified; E55.9 Vitamin D deficiency, unspecified; N39.0 Urinary tract infection, site not specified; B96.1 Klebsiella pneumoniae [K. pneumoniae] as the cause of diseases classified elsewhere; Z72.0 Tobacco use
CPT/HCPCS: 80050; 80053; 80061; 82306; 82607; 83036; 84436; 84443; 84479; 85025; 87086; 87088; 87186

== ENCOUNTER 2024-04-04 14:09 | Outpatient (CLI) | payer MEDICARE, SELFPAY ==
[2024-04-04 14:27] LABS: Microscopic, Urine URINE MICROSCOPIC (MICROSCOPIC)
[2024-04-04 14:39] LABS: Appearance,Urine CLOUDY (Clear); Bilirubin,Urine Negative (Negative); Blood, Urine 1+ (Negative); Color,Urine YELLOW (Yellow); Glucose,Urine (UA) Negative (Negative); Ketones,Urine Negative (Negative); Leukocyte Esterase,Urine 2+ (Negative); Nitrate,Urine POSITIVE (Negative); PH,Urine 6.5 (5.0-8.5); Protein,Urine 2+ (Negative); Urobilinogen,Urine 0.2 EU/dl (0.2)
[2024-04-04 14:44] LABS: Bacteria,Urine 3+ /lpf; RBC,Urine Occasional #/hpf (0-3); Squamous Epithelial Cell,Urine Occasional #/hpf (0-5); Transitional Epi Cells,Urine OCC #/lpf (0-3); WBC,Urine 50-100 #/hpf (0-3)
[2024-04-04 14:53] LABS: Basophils # 0.1 K/mm3 (0-0.2); Basophils % 0.8 % (0.1-2.0); Eosinophils # 0.2 K/mm3 (0.0-0.4); Eosinophils % 1.8 % (0.1-12.0); Hematocrit 41.7 % (37.0-47.0); Hemoglobin 13.5 g/dL (12.2-16.2); Lymphocytes % 22.9 % (10-50); Mean Corpuscular HGB Conc 32.4 g/dL (31.8-35.4); Mean Corpuscular Hemoglobin 32.2 pg (27.0-31.2); Mean Corpuscular Volume 99.6 fl (81-99); Mean Platelet Volume 7.7 fl (7.4-10.4); Monocytes # 0.7 K/mm3 (0.1-1.0); Monocytes % 8.5 % (1.7-9.3); Neutrophils # 5.6 K/mm3 (1.8-7.8); Platelet Count 314 K/mm3 (142-424); Red Blood Count 4.18 M/mm3 (4.20-5.40); Red Cell Distribution Width 13.5 % (11.5-17.5); White Blood Count 8.5 K/mm3 (4.8-10.8)
[2024-04-04 14:56] LABS: Creatinine,Urine Random 52 mg/dL (Not Estab.)
[2024-04-04 14:59] LABS: Albumin Level 4.1 g/dl (3.5-5.0); Anion Gap 10.4 mEq/L (5-15); Blood Urea Nitrogen 29 mg/dl (7-17); Calcium 9.3 mg/dl (8.4-10.2); Carbon Dioxide 26 mmol/L (22.0-30.0); Chloride 105 mmol/L (98-107); Estimated Glomerular Filt Rate 26 ml/min (>60); GFR (African American) 32 ML/MIN (>60); Glucose 88 mg/dl (74-100); Phosphorous 4.1 mg/dl (2.5-4.5); Potassium 4.4 mmoL/L (3.5-5.1); Sodium 137 mmol/L (136-145)
[2024-04-04 15:17] LABS: 25-OH Vitamin D, Total 72.4 ng/mL (30-100)
== END 2024-04-04 23:59 | disposition home or self-care (01) ==
PROVIDERS: PCP Family Medicine; Visit Provider Internal Medicine Nephrology
DX: N18.32 Chronic kidney disease, stage 3b (principal); N39.0 Urinary tract infection, site not specified
CPT/HCPCS: 36415; 80069; 81001; 82306; 82570; 83970; 84156; 85025; 87086; 87088; 87186

== ENCOUNTER → 2024-04-13 07:06 | Outpatient (CLI) | payer MEDICARE, SELFPAY | PROVIDERS: PCP Family Medicine; Visit Provider Family Medicine | DX: G47.33 Obstructive sleep apnea (adult) (pediatric) (principal); G47.36 Sleep related hypoventilation in conditions classified elsewhere | CPT/HCPCS: G0399 ==

== ENCOUNTER 2024-06-03 20:50 | Emergency (ER) | payer MEDICARE, SELFPAY ==
[2024-06-03 21:06] VITALS: BP 130/69; PULSE 72; RESP 20; TEMP 36.4; O2SAT 98
--- NOTE | 2024-06-03 21:17 | HMH.EDGENADL ---
Discharge Plan Disposition Chief Complaint: PAIN Prescriptions Prescriptions: New valacyclovir 1 gram tablet 1,000 mg PO Q8H 14 Days Qty: 42 0RF gabapentin 100 mg capsule 100 mg PO Q8H PRN (Reason: pain (scale score 4-6)) Qty: 30 0RF Rx Instructions: 1 to 3 capsules every night for nerve pain in your right arm. Do not drive while taking this medication No Action albuterol sulfate 90 mcg/actuation HFA aerosol inhaler 2 puff inhalation Q4-6H PRN (Reason: Shortness Of Breath) Qty: 8.5 0RF Rx Instructions: INHALE 2 PUFFS BY MOUTH EVERY 4 TO 6 HOURS NEEDED FOR SHORTNESS OF BREATH OR WHEEZING aspirin 81 mg tablet,chewable 81 mg PO DAILY Qty: 30 3RF atorvastatin 80 mg tablet 80 mg PO HS Qty: 90 3RF Rx Instructions: TAKE 1 TABLET BY MOUTH ONCE DAILY hydrochlorothiazide 12.5 mg tablet 12.5 mg PO DAILY Qty: 30 2RF budesonide-formoterol 80-4.5 mcg/actuation HFA aerosol inhaler See Rx Instructions .ROUTE .COMPLEX Qty: 10.2 3RF Dose Instruction: 2 PUFFS INHALED BY MOUTH BY MOUTH TWICE A DAY (RINSE MOUTH AFTER USE) Rx Instructions: 2 PUFFS INHALED BY MOUTH BY MOUTH TWICE A DAY (RINSE MOUTH AFTER USE) cholecalciferol (vitamin D3) 1,250 mcg (50,000 unit) capsule 1,250 mcg PO WEEKLY Qty: 12 3RF cholecalciferol (vitamin D3) 50 mcg (2,000 unit) tablet 50 mcg PO DAILY Qty: 90 0RF nitrofurantoin monohyd/m-cryst [Macrobid] 100 mg capsule 100 mg PO BID 7 Days Qty: 14 0RF Rx Instructions: must administer with a meal/food amitriptyline 100 mg tablet 100 mg PO DAILY Qty: 30 2RF duloxetine 60 mg capsule,delayed release(DR/EC) 60 mg PO DAILY Qty: 30 3RF lamotrigine [Lamictal] 25 mg tablet 50 mg PO DAILY Qty: 60 2RF Rx Instructions: Take with Lamictal 100 mg daily. lamotrigine [Lamictal] 100 mg tablet 100 mg PO DAILY Qty: 30 2RF metoprolol tartrate 100 mg tablet See Rx Instructions .ROUTE .COMPLEX Qty: 180 2RF Dose Instruction: TAKE 1 TABLET BY MOUTH TWICE DAILY Rx Instructions: TAKE 1 TABLET BY MOUTH TWICE DAILY amlodipine 10 mg tablet 10 mg PO DAILY Qty: 90 3RF pantoprazole 40 mg tablet,delayed release (DR/EC) See Rx Instructions .ROUTE .COMPLEX Qty: 90 0RF Dose Instruction: TAKE ONE TABLET BY MOUTH EVERY DAY Rx Instructions: TAKE ONE TABLET BY MOUTH EVERY DAY levothyroxine 112 mcg tablet See Rx Instructions .ROUTE .COMPLEX Qty: 90 1RF Dose Instruction: TAKE 1 TABLET BY MOUTH ONCE DAILY Rx Instructions: TAKE 1 TABLET BY MOUTH ONCE DAILY Referrals Follow up/Referrals: Ayse Roth APRN [Primary Care Provider] - See instructions Jai Hastings MD [Staff Physician] - See instructions Activity Restrictions/Add. Instructions Additional Instructions/Restrictions: Follow-up with your PCP regarding this visit to the emergency department and continued pain medications as needed. Antiviral 3 times daily for 14 days. Gabapentin as needed as prescribed. If you continue to have significant pain, talk to family doctor about referral to Dr. Hastings for postherpetic neuralgia. Information here, too. Clinical Impressions Clinical Impression: Herpes zoster dermatitis Print Language Print Language: Irish Discharge ED Provider: Tk Dodge General Adult HPI General Chief complaint: PAIN Stated complaint: LT shoulder ,arm hand pain Time Seen by Provider: 06/03/24 20:56 Mode of Arrival: Wheelchair Source of Information: Patient and Relative Limitations: No Limitations Description of Symptoms (Recalled from ER Triage Doc. by RN): Pt reports to ED via wheelchair with cc of left upper extremity pain. Pt reports pain started Tuesday but became increasingly worse tonight. Pt states having blisters on her left hand that she believes came from her heating pad. Pt has blisters to left palm and wrist. Pt states she also has left flank pain. Pt states her left hand has numbness. 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 Pt denied any tenderness to left arm expect in hand and shoulder on palpation. Pt's son states pt has be having increasing weakness and SOA this week. Pt has hx of COPD but denies any oxygen use at home. Pt's son also reports pt has had high blood pressure all week as well. Pt reports having a yesterday of HTN. History of Present Illness HPI narrative: Please note that above description of symptoms, in this electronic medical record under categorization of recalled from ER triage doctor by RN are reflective of an initial nursing assessment, however, is not reflective of my full history and physical exam that was personally taken and clarified. Consequentially, this preceding description of symptoms, which may include the patient's categorized chief complaint in the EMR, do not reflect my personal clinical impression, and the ultimate description of history of present illness and patient stated complaints should be deferred to this section of the note. Unless stated otherwise or congruent with this section of the note, additional signs, symptoms, or incongruence should be interpreted as inaccurate with my clinical impression. Related Data Previous Rx's ?Medication ?Instructions ?Recorded albuterol sulfate 90 mcg/actuation 2 puff inhalation Q4-6H PRN 08/31/23 aerosol inhaler Shortness Of Breath #8.5 grams aspirin 81 mg chewable tablet 81 mg PO DAILY #30 tabs 08/31/23 atorvastatin 80 mg tablet 80 mg PO HS #90 tabs 08/31/23 hydrochlorothiazide 12.5 mg tablet 12.5 mg PO DAILY #30 tabs 12/07/23 budesonide-formoterol HFA 80 See Rx Instructions .Route 01/20/24 mcg-4.5 mcg/actuation aerosol .COMPLEX #10.2 grams inhaler cholecalciferol (vitamin D3) 1,250 1,250 mcg PO WEEKLY vitamin D 03/07/24 mcg (50,000 unit) capsule deficeincy #12 caps cholecalciferol (vitamin D3) 50 50 mcg PO DAILY vitamin D defiency 03/07/24 mcg (2,000 unit) tablet #90 tabs nitrofurantoin 100 mg PO BID 7 days #14 caps 03/09/24 monohydrate/macrocrystals 100 mg capsule (Macrobid) amitriptyline 100 mg tablet 100 mg PO DAILY #30 tabs 04/23/24 duloxetine 60 mg capsule,delayed 60 mg PO DAILY #30 caps 04/23/24 release lamotrigine 100 mg tablet 100 mg PO DAILY #30 tabs 04/23/24 (Lamictal) lamotrigine 25 mg tablet (Lamictal) 50 mg (2 x 25 mg) PO DAILY #60 tabs 04/23/24 metoprolol tartrate 100 mg tablet See Rx Instructions .Route 05/02/24 .COMPLEX #180 tabs amlodipine 10 mg tablet 10 mg PO DAILY #90 tabs 05/18/24 levothyroxine 112 mcg tablet See Rx Instructions .Route 05/18/24 .COMPLEX #90 tabs pantoprazole 40 mg tablet,delayed See Rx Instructions .Route 05/18/24 release .COMPLEX #90 tabs gabapentin 100 mg capsule 100 mg PO Q8H PRN pain (scale 06/03/24 score 4-6) #30 caps valacyclovir 1 gram tablet 1,000 mg PO Q8H 14 days #42 tabs 06/03/24 Allergies Allergy/AdvReac Type Severity Reaction Status Date / Time No Known Allergies Allergy Verified 02/29/24 14:01 [facility] Disclaimer: The information contained in this section may have been updated after the patient was seen, as this information can be updated by other users. Medical History Colon cancer screening CKD (chronic kidney disease) Bilateral renal artery stenosis Abnormal renal finding Multiple lung nodules on CT Smoking greater than 30 pack years Allergic rhinitis Paraseptal emphysema Abnormal stress test Atypical chest pain Abnormal EKG Urinary tract infection Pneumonia Hypothyroid History of chest pain High cholesterol Hypertension Surgical History History of renal stent History of back surgery History of hysterectomy Tubal ligation status Family History Other No significant family history Social History Smoking Status: Current every day smoker alcohol intake: never substance use type: denies use current occupational status: other Travel in the last 8 weeks: None household members: family housing: house Other Medical History Have you received the Flu Vaccine for this season: Yes Have you received the Pneumonia Vaccine: Yes ROS Obtained: Yes All systems reviewed & no additional complaints except as documented Physical Exam General General appearance: alert Head Head exam: atraumatic and normocephalic Eye Eye exam: Present normal appearance, PERRL and EOMI Neck Neck exam: Present normal inspection, full ROM and trachea midline Respiratory Respiratory exam: Absent respiratory distress, wheezes, stridor, accessory muscle use or prolonged expiratory phase Cardiovascular Cardiovascular exam: Present other (Pulses equal symmetric in upper and lower extremities) Abdominal Exam Abdominal exam: Present soft; Absent distention, tenderness or pulsatile mass Extremities Exam Extremities exam: Present other (Zoster rash extending from axilla down to left fourth and fifth digit); Absent edema Neurological Exam Neurological exam: Present alert, oriented X3 and CN II-XII intact; Absent motor sensory deficit Skin Skin exam: Present warm, dry and rash; Absent diaphoresis or erythema Medical Decision Making Medical Records Medical records reviewed: Yes I reviewed the patient's medical records. Screening: Per USPSTF and CDC recommendations, given the prevalence of disease in our region, it is our hospital?s policy to screen for HIV and viral Hepatitis for all patients aged 18 and over and those with ongoing risk factors. Herb Inquiry Pt receiving controlled substance: No Herb was queried for this patient: No Vital Signs: 06/03/24 21:06 Temperature 97.5 F L Temperature Source Oral Pulse Rate [Left Radial] 72 Respiratory Rate 20 Blood Pressure [Right Arm] 130/69 Blood Pressure Mean [Right Arm] 89 Blood Pressure Source [Right Arm] Automatic Cuff Blood Pressure Position [Right Arm] Sitting 02 Sat by Pulse Oximetry 98 Oxygen Delivery Method Room Air Orders (Tests/Meds): ORDERS Category Date Time Status HIV (1&2) Antibody Rapid Stat Lab 06/03/24 21:14 Ordered Hep C Ab with Reflex to RNA Stat Lab 06/03/24 21:14 Ordered Medical Decision Narrative: 68-year-old female presenting with pain and rash. Patient states that she started having pain in her left axilla/posterior left shoulder 6 days prior to this. Started noticing that she had a rash pop up on the inside of her left arm yesterday, 06/02. Exquisitely tender. No fevers or chills, nausea or vomiting, chest pain, shortness of breath, or any other concerns. No environmental contacts or exposures. History obtained with patient. On arrival, patient uncomfortable, but well-appearing overall. She does have varicella-zoster rash extending from proximal/medial upper extremity down to left fourth and fifth digit. Consistent with varicella-zoster. Labs were considered, but not deemed necessary because she has no systemic signs or symptoms and hemodynamically stable. Imaging not necessary at this time. Patient given 800 mg acyclovir and 200 mg gabapentin. Valacyclovir and gabapentin also sent to the pharmacy. Because patient at baseline without signs or symptoms of clinical decompensation, deemed appropriate for discharge. Results were relayed to patient who voiced understanding and were agreeable to outpatient management and follow up. I discussed my clinical impression with patient and answered all questions. At this time, the evidence for any other entities in the differential is insufficient to warrant any further testing or ED observation. This was explained as well. Advisory was given that persistent or worsening symptoms require further evaluation. I confirmed the understanding of this discussion. Information Systems Audit Manager disclaimer Much of this encounter note is an electronic distribution center manager spoken language to printed text. Electronic distribution center manager of the spoken language may permit errors. Although I have reviewed the note, some errors may still exist. Critical Care Critical Care Time Critical Care Time: No
[2024-06-03] MEDS: GABAPENTIN 100MG CAPSULE 200 MG PO (21:28)
[2024-06-03] MEDS: ACYCLOVIR 400MG TAB 800 MG PO (21:28)
[2024-06-03 21:31] VITALS: BP 126/72; PULSE 75; RESP 16; TEMP 36.6; O2SAT 98
== END 2024-06-03 21:36 | disposition home or self-care (01) ==
PROVIDERS: Emergency Provider Emergency Medicine; PCP Family Medicine
DX: B02.8 Zoster with other complications (principal); R21 Rash and other nonspecific skin eruption; M25.512 Pain in left shoulder; M79.602 Pain in left arm; M79.642 Pain in left hand; R20.2 Paresthesia of skin; S60.522A Blister (nonthermal) of left hand, initial encounter; S60.822A Blister (nonthermal) of left wrist, initial encounter
CPT/HCPCS: 99284

== ENCOUNTER 2024-06-06 10:10 | Outpatient (CLI) | payer MEDICARE, SELFPAY ==
[2024-06-06 19:20] LABS: Alanine Aminotransferase 13 U/L (12-78); Albumin Level 3.7 g/dl (3.5-5.0); Albumin/Globulin Ratio 1.5 (1.1-1.8); Alkaline Phosphatase 94 U/L (38-126); Aspartate Amino Transferase 20 U/L (14-36); Bilirubin,Total 0.4 mg/dl (0.2-1.3); Blood Urea Nitrogen 37 mg/dl (7-17); Calcium 9.1 mg/dl (8.4-10.2); Carbon Dioxide 11 mmol/L (22.0-30.0); Chloride 103 mmol/L (98-107); Estimated Glomerular Filt Rate 17 ml/min (>60); GFR (African American) 20 ML/MIN (>60); Globulin 2.4 g/dL (1.3-3.2); Glucose 152 mg/dl (74-100); Sodium 129 mmol/L (136-145); Total Protein,Serum 6.1 g/dl (6.3-8.2)
[2024-06-06 19:29] LABS: 25-OH Vitamin D, Total 103 ng/mL (30-100)
[2024-06-06 20:16] LABS: Vitamin B12 > 1000 pg/mL (239-931)
== END 2024-06-06 23:59 | disposition home or self-care (01) ==
LOC: LAB.DROPOF 06-07 10:12
PROVIDERS: PCP Family Medicine; Visit Provider Family Medicine
DX: Z00.00 Encounter for general adult medical examination without abnormal findings (principal); G89.29 Other chronic pain; E55.9 Vitamin D deficiency, unspecified
CPT/HCPCS: 80053; 82306; 82607

== ENCOUNTER 2024-06-22 07:23 | Outpatient (CLI) | payer MEDICARE, SELFPAY ==
--- NOTE | 2024-06-22 07:24 | US_ITS ---
FINAL REPORT CLINICAL HISTORY: polyp COMPARISON: 08/31/2023 FINDINGS: Sonographic images of the right upper quadrant were obtained. The pancreas is partially obscured. The liver has an unremarkable appearance. There is an 8 mm echogenic focus near the neck of the gallbladder with questionable shadowing. This is favored to represent a gallstone rather than a polyp. There is no evidence of biliary ductal dilatation. The common duct measures 6 mm, which is at the upper limit of normal. There are several right renal cysts measuring up to 2.2 cm. IMPRESSION: 8 mm echogenic focus in the gallbladder neck now has an appearance consistent with a gallstone. Several right renal cysts. Reviewed, Interpreted and Dictated by Scar Kruger III, MD Transcribed by María Lowry Authenticated and [facility]
== END 2024-06-22 23:59 | disposition home or self-care (01) ==
LOC: RAD 07:24
PROVIDERS: PCP Family Medicine; Visit Provider Surgery
DX: K82.4 Cholesterolosis of gallbladder (principal)
CPT/HCPCS: 76705

== ENCOUNTER 2024-07-25 12:56 | Outpatient (CLI) | payer MEDICARE, SELFPAY ==
--- NOTE | 2024-07-25 13:01 | US_ITS ---
FINAL REPORT CLINICAL HISTORY: CKD COMPARISON: 04/07/2023 FINDINGS: RENAL ULTRASOUND Ultrasound images of the kidneys were obtained. There is echogenic foci in the spleen probably due to splenic granulomas. The right kidney measures 9.1 cm in length. The left kidney measures 8.7 cm in length. There is mild increased cortical echogenicity of the kidneys probably due to medical renal disease. There is no hydronephrosis. IMPRESSION: No hydronephrosis. Increased cortical echogenicity probably due to medical renal disease. Reviewed, Interpreted and Dictated by Dilshad Byers MD Transcribed by María Lowry Authenticated and [facility]
[2024-07-25 13:40] LABS: Microscopic, Urine URINE MICROSCOPIC (MICROSCOPIC)
[2024-07-25 13:52] LABS: Appearance,Urine CLOUDY (Clear); Bilirubin,Urine Negative (Negative); Blood, Urine TRACE-I (Negative); Color,Urine YELLOW (Yellow); Glucose,Urine (UA) Negative (Negative); Ketones,Urine Negative (Negative); Leukocyte Esterase,Urine 2+ (Negative); Nitrate,Urine POSITIVE (Negative); Protein,Urine 2+ (Negative); Specific Gravity, Urine 1.025 (1.005-1.030); Urobilinogen,Urine 0.2 EU/dl (0.2)
[2024-07-25 13:56] LABS: Hematocrit 34.1 % (37.0-47.0); Hemoglobin 11.3 g/dL (12.2-16.2); Mean Corpuscular HGB Conc 33.1 g/dL (31.8-35.4); Mean Corpuscular Hemoglobin 32.9 pg (27.0-31.2); Mean Corpuscular Volume 99.4 fl (81-99); Platelet Count 276 K/mm3 (142-424); Red Blood Count 3.43 M/mm3 (4.20-5.40); Red Cell Distribution Width 16.5 % (11.5-17.5); White Blood Count 8.9 K/mm3 (4.8-10.8)
[2024-07-25 13:58] LABS: WBC,Urine 50-100 #/hpf (0-3)
[2024-07-25 13:59] LABS: Bacteria,Urine 3+ /lpf
[2024-07-25 14:00] LABS: Creatinine,Urine Random 97 mg/dL (Not Estab.)
[2024-07-25 14:14] LABS: Chloride 105 mmol/L (98-107); Potassium 3.9 mmoL/L (3.5-5.1); Sodium 137 mmol/L (136-145)
[2024-07-25 14:17] LABS: Anion Gap 15.9 mEq/L (5-15); Blood Urea Nitrogen 12 mg/dl (7-17); Calcium 9.2 mg/dl (8.4-10.2); Carbon Dioxide 20 mmol/L (22.0-30.0); Estimated Glomerular Filt Rate 30 ml/min (>60); GFR (African American) 36 ML/MIN (>60); Glucose 90 mg/dl (74-100); Phosphorous 3.6 mg/dl (2.5-4.5)
[2024-07-25 14:34] LABS: Intact Parathyroid Hormone 114.7 pg/mL (7.5-53.5)
[2024-07-25 14:35] LABS: 25-OH Vitamin D, Total 71.4 ng/mL (30-100)
[2024-07-26 03:41] LABS: Complement C3 132 mg/dL (82-167)
== END 2024-07-25 23:59 | disposition home or self-care (01) ==
PROVIDERS: PCP Family Medicine; Visit Provider Student in an Organized Health Care Education/Training Program
DX: I12.9 Hypertensive chronic kidney disease with stage 1 through stage 4 chronic kidney disease, or unspecified chronic kidney disease (principal); N18.4 Chronic kidney disease, stage 4 (severe); B96.20 Unspecified Escherichia coli [E. coli] as the cause of diseases classified elsewhere
CPT/HCPCS: 36415; 76770; 80069; 81001; 82043; 82306; 82570; 83970; 84156; 85027; 86161; 87086; 87088; 87186

== ENCOUNTER 2024-09-28 09:56 | Outpatient (CLI) | payer MEDICARE, SELFPAY ==
--- NOTE | 2024-09-28 | CA_ITS ---
FINAL REPORT TECHNIQUE: Ultrasound images of the kidneys were obtained. Duplex Doppler of the renal arteries, RAR and RI also obtained. Spectral analysis was performed. CLINICAL HISTORY: HTN, JONAS:RENAL ARTERY STENTS AT PROX/MID/DISTAL segments 1 year ago. Smoker FINDINGS: Aortic velocity is measured at 96 cm/sec. The right kidney measures 8.9 cm in length. No hydronephrosis or cortical thinning. Benign-appearing cyst superior right kidney measuring up to 1.8 cm. RAR is 0.78-0.81. Peak systolic velocity is 200 cm/sec. RI is 2.09. Less than 60% renal artery stenosis. The left kidney measures 9.1 cm in length. No hydronephrosis, cortical thinning, or mass. RAR is 0.79-0.84. Peak systolic velocity is 99 cm/sec. RI is 1.04. No evidence of renal artery stenosis or chronic renal disease. IMPRESSION: Less than 60% renal artery stenosis on the right with no evidence of renal artery stenosis on the left. Benign right renal cyst. Reviewed, Interpreted and Dictated by Dilshad Byers MD Transcribed by Emy Grace Authenticated and [facility]
== END 2024-09-28 23:59 | disposition home or self-care (01) ==
LOC: RT 09:57
PROVIDERS: PCP Physician Assistant; Visit Provider Physician Assistant
DX: I10 Essential (primary) hypertension (principal)
CPT/HCPCS: 93976

== ENCOUNTER 2024-10-15 13:21 | Outpatient (CLI) | payer MEDICARE, SELFPAY ==
--- NOTE | 2024-10-15 13:23 | CA_ITS ---
APPROVED REPORT EXAM: Comprehensive 2D, Doppler, and color-flow Echocardiogram Staff Auditor: Jazlyn Rowan RVT Ht: 5 ft 4 in Wt: 150lbs BSA: 1.73 BP: 153/75 mmHg Indications: SOA,FATIGUE,ABN EKG,COPD,SMOKER,HTN,HLD 2D Dimensions LA Volume 56.40 mL LA Volume Index 32.60 mL/m2 (M/F) 16-34 M-Mode Dimensions RVDd 2.88 cm (0.9-2.6) LA Diam 4.30 cm (1.9-4.0) LVDd 6.26 cm (3.5-5.7) LVDs 4.48 cm (3.5-5.7) IVSd 0.75 cm (0.6-1.1) PWd 0.53 cm (0.6-1.1) EF (Teich) 53.90% FS 28.40% EDV (Teich) 198.30 mL TAPSE 2.33 (<1.7) ESV (Teich) 91.50 mL LV Diastology E Decel Time 237 (160-240 msec) E/A Ratio 0.9 Aortic Valve CHRIS Index 1.56 cm2/m2 AoV Peak Mahad. 120.0 (50-130 cm/s) AO Peak GR. 5.80 mmHg AO Mean GR. 3.20 (<5 mmHg) AO VTI 27.3 (18-25 cm) CHRIS (VTI) 2.77 (2.5-4.5 cm2) Mitral Valve MV E Max Mahad. 65.0 (40-130 cm/s) MV A Velocity 70.0 (40-130 cm/s) E/A Ratio 0.93 MV PHT 69.0 ms Pulmonary Valve PV Peak Velocity 57.0 (50-150 cm/s) Tricuspid Valve TR P. Velocity 345.00 cm/s RAP Estimate 10.00 mmHg RVSP 57.70 mmHg Left Ventricle The left ventricle is normal size. The left ventricular systolic function is low normal. There is increased LV wall thickness. There is normal LV segmental wall motion. The left ventricular diastolic function is normal. LVEF is 50%. Right Ventricle The right ventricle is mildly dilated. The right ventricular systolic function is normal. Atria Left atrium is moderately dilated. Right atrium is moderately dilated. There is no Doppler evidence of interatrial shunt. Aortic Valve The aortic valve is mildly thickened. There is no aortic valvular stenosis. Trace aortic regurgitation is present. Mitral Valve The mitral valve is normal in structure. Mild to moderate mitral regurgitation. The MR jet is eccentric and may be underestimated on TTE. Tricuspid Valve Tricuspid valve is grossly normal in structure and function. Trace tricuspid regurgitation. There is insufficient TR jet to estimate RVSP. Pulmonic Valve The pulmonary valve is normal in structure. Trace pulmonic regurgitation. Great Vessels The aortic root is normal in size. IVC is normal in size and collapses >50% with inspiration. Pericardium There is no pericardial effusion. Other Information Study Quality: Fair Conclusion Low normal LV systolic function (LVEF 50%). Mild RV dilation with normal RV function. Biatrial dilation. Mild to moderate MR. The MR jet is eccentric and may be underestimated on TTE. Electronically signed by : Cristiana Caba MD 10/25/2024 14:23:26
== END 2024-10-15 23:59 | disposition home or self-care (01) ==
LOC: RT 13:22
PROVIDERS: PCP Physician Assistant; Visit Provider Nurse Practitioner Family
DX: I51.7 Cardiomegaly (principal); I34.0 Nonrheumatic mitral (valve) insufficiency; E03.9 Hypothyroidism, unspecified; E78.2 Mixed hyperlipidemia
CPT/HCPCS: 93306

== ENCOUNTER 2024-10-19 11:24 | Outpatient (CLI) | payer MEDICARE, SELFPAY ==
[2024-10-19 11:41] LABS: Basophils # 0.1 K/mm3 (0-0.2); Basophils % 0.6 % (0.1-2.0); Eosinophils # 0.1 K/mm3 (0.0-0.4); Eosinophils % 1.1 % (0.1-12.0); Hematocrit 38.1 % (37.0-47.0); Lymphocytes # 1.5 K/mm3 (0.7-4.5); Lymphocytes % 14.7 % (10-50); Mean Corpuscular HGB Conc 34.1 g/dL (31.8-35.4); Mean Corpuscular Hemoglobin 33.3 pg (27.0-31.2); Mean Corpuscular Volume 97.7 fl (81-99); Mean Platelet Volume 9.5 fl (7.4-10.4); Monocytes % 9.4 % (1.7-9.3); Neutrophils # 7.8 K/mm3 (1.8-7.8); Neutrophils % 73.9 % (37.0-80.0); Platelet Count 265 K/mm3 (142-424); White Blood Count 10.5 K/mm3 (4.8-10.8)
[2024-10-19 12:13] LABS: Albumin Level 4.1 g/dl (3.5-5.0); Chloride 108 mmol/L (98-107); Potassium 3.7 mmoL/L (3.5-5.1); Sodium 139 mmol/L (136-145)
[2024-10-19 12:15] LABS: Blood Urea Nitrogen 16 mg/dl (7-17); Estimated Glomerular Filt Rate 28 ml/min (>60); GFR (African American) 34 ML/MIN (>60)
[2024-10-19 12:16] LABS: Alanine Aminotransferase 14 U/L (12-78); Alkaline Phosphatase 74 U/L (38-126); Anion Gap 13.7 mEq/L (5-15); Aspartate Amino Transferase 23 U/L (14-36); Bilirubin,Direct 0.1 mg/dl (0.0-0.4); Bilirubin,Indirect 0.3 mg/dL (0.0-0.9); Bilirubin,Total 0.4 mg/dl (0.2-1.3); Bilirubin,Unconjugated 0.3 mg/dL (0.0-1.1); Carbon Dioxide 21 mmol/L (22.0-30.0); Chol/HDL Ratio 2.1 (1-3.5); Cholesterol 135 mg/dl (140-200); Glucose 100 mg/dl (74-100); HDL Cholesterol 64 mg/dl (40-60); Total Protein,Serum 6.5 g/dl (6.3-8.2); Triglycerides 130 mg/dl (30-150); VLDL Cholesterol 26 mg/dL (0-40)
[2024-10-19 12:27] LABS: Direct LDL Cholesterol 40.48 mg/dL (100-129)
[2024-10-19 12:33] LABS: Free T4 (Free Thyroxine) 1.79 ng/dl (0.78-2.19)
[2024-10-19 12:47] LABS: Thyroid Stimulating Hormone 0.02 uIU/mL (0.465-4.68)
--- OUTSIDE RECORDS SUMMARY | 2024-10-25 19:33 | XMS_ITS | Continuity of Care Document ---
Author Organization [facility] [place] New Address [address] [place] [address] Care Team Providers Care Polisher Implant Name Role Phone [facility] Referring Provider Assessment Encounter Date Assessment Date Assessment LastModified by Organization Details LastModified Time 10/02/2024 10/02/2024 Images reviewed today lumbarMRI 2009: moderate to severe DDD, multilevel disc space narrowing, multilevel facet hypertrophy 10/02/2024: Plan Today, I discussed with the patient about my current findings based on their history and/or physical exam. They have multiple pain generators, however I will treat their pain in a stepwise plan as outlined below. 1. #Postlaminectomy Syndrome, Chronic worsening #Chronic Pain -Symptoms in the axial low back and b/l lower extremity(s) - So far, Tx's tried/failed or contraindicated: --> Spine surgery: L3-L5 lumbar fusion -->Physical therapy: >6wks without any relief --> Medications: opioids, NSAIDs, Tylenol, lidocaine patches -->Injections: LESI's, RFAs -->Psychological therapy -Plan ----Surgical consult/referral placed for assessment of surgical indications we will be discussed at further appointments. If surgery is not indicated, then I believe the candidate would be appropriate for a SCS trial ----Consult to Pain Psychology will be considered to be placed ----SCS trial with TBD after psychological clearance is obtained and patient is considered non-surgical 2. #b/l Sacroiliac Joint Pain, Chronic worsening -Patient has >3 provocative exam maneuvers which include + emmanuel's finger, CHEPE, thigh thrust, compression, distraction, Gaenslen's -patient has completed PT and other conservative therapies that were listed in the HPI. They remain symptomatic and have failed conservative therapies. - They are an appropriate candidate for this procedure. -Will schedule b/l diagnostic SI joint injection under flouroscopic guidance once the patient has followed up with me in 2 weeks to review her lumbar spine x-ray -If significant short term relief >75% on two occasions but no sustained relief consider SI joint ablation. Other options included lateral percutaneous fixation/fusion. 3. #Axial Low Back Pain, Chronic worsening #Lumbar Spondylosis #Facetogenic pain - patient has completed physical therapy within the past 6 months. - I ordered a lumbar x-ray and we will follow up on this. Patient will follow up in 2 weeks to review go over urine drug screen #Chronic Pain Syndrome #Opioid Dependence #Chronic Prescription Controlled Substance Use -Drug therapy requiring intensive monitoring for toxicity. Patient was getting opioid medication from a different pain treatment Center. She is getting oxycodone/APAP 7.5/325 qid from [facility]. She reported that she requested to leave and be seen by a different physician. Her last prescription was filled 07/09/2024 A. Controlled Substance agreement: TBD B. UDS results reviewed: 10/02/2024 reviewed. Positive for marijuana. Patient has a medical marijuana card . I have requested to see her medical marijuana card C. PDMP/MIKAELA report obtained today and reviewed: reviewed and Appropriate DDov AL: [id number] E. As documented in the signed controlled substance agreement, the patient is aware of the risks associated with the administration of medication, including the risk of overdose and , the risk of developing misuse, abuse, and addiction to the prescribed medications, as well as the other risks associated with medication administration. Routine assessment for mental health conditions have been assessed during this visit, and the patient has been properly screened for substance use disorders (risk of developing and presence of these conditions). [email or web address] Not available 10/02/2024 16:32:06 Plan of Treatment Reminders Order Date Submit Date Provider Last Modified By Organization Details Last Modified Time Details Appointments PROC 15 2024 01:00P Arcenio SAAB, DO Not available Not available Not available Lab None recorded. Referral None recorded. Procedures None recorded. Surgeries None recorded. Imaging XR, lumbar spine, 2 view - please evaluate for spondylot hesis, b/l pars defect and angular stability 03/18/ 2025 03/18/2 025 [email or web address] [facility] ([facility]), [address] , [place], [address], 10/15/2024 14:33:01 Medication Orders None recorded. Patient TargetsNo targets recorded. Patient Instructions Encounter Date Encounter Id Patient Instructions Last Modified By Organization Details Last Modified Time 10/02/2024 [id number] I have discussed in great detail our potential treatment options which would include a rehabilitative approach to care. This program would include medication management, Physical Therapy, consideration for interventional procedures as appropriate, and lifestyle modification (diet, weight loss, exercise, smoking/tobacco cessation, holistic approach including meditation and yoga). The patient understands and agrees prior to proceeding with this plan. _ __ __ __ __ __ __ __ __ __ __ __ __ __ __ __ __ __ __ __ __ __ __ __ __ __ __ __ _ RECORDS REVIEW: As per clinic policy, we will have the patient sign a release to obtain previous imaging and clinical notes. _ __ __ __ __ __ __ __ __ __ __ __ __ __ __ __ __ __ __ __ __ __ __ __ __ __ __ __ _ PSYCH: Pain affecting Neuro-psych behavior was discussed. Discussed about pain psychological counseling as a part of the multimodal approach to pain treatment. _ __ __ __ __ __ __ __ __ __ __ __ __ __ __ __ __ __ __ __ __ __ __ __ __ __ __ __ _ REHABILITATION: Discussed with the patient the importance of diet, daily physical activity and PT. Discussed with the patient the need to be scheduled for physical therapy since physical therapy will prolong the benefits of the procedure and interventions. [email or web address] Not available 10/02/2024 16:36:02 Reason for Referral None Reported. Results Created Date Observation Date Name Description Value Unit Range Abnormal Flag Note LastModifiedBy Organization Detail LastModifiedTime 10/16/1910/11/2024 XR, lumba r spine , 2 view No observ ation record ed. [facility] (Scheduling) [address] [place], [address], 10/24/2024 12:23:11 10/16/19 25 10/11/2024 XR, lumba r spine [facility] [address] [place] [address] Phone: Fax: Name: ADAN JOCELYN Exam Date: : 1954 Age 69 years Gender : F Access ion: [id number] Physic christopher: IRVIN SAAB Facili ty: [facility] Facili ty HSV: Outpat ient Exam: LUMBAR 5V XR LUMBAR SPINE 5 VIEWS Reason For Study: pain COMPAR NICOLAS:1 010 TECHNI QUE: 5 views of the lumbar spine were obtain ed. FINDIN GS There is a scolio sis 30 degree s. Some wedgin g of the verteb ral bodies in the cavity of scolio tic curve. Hardwa re L4-5 L5-S1 intact . Modera te to severe degene rative disc diseas e and facet diseas e. Bones are demine ralize d. No acute fractu re eviden t. Consti pation . Bilate ral renal artery stents noted. IMPRES DELISA: Modera te to severe degene rative change s. No acute fractu re. Electr onical ly signed by: Dev Sanchez MD 2024 01:44 PM EDT RP Workst ation: [id number] Dictat ed By: DEV SANCHEZ Transc ribed By: Transc ribed On: 12:32 PM Electr onical ly signed by: DEV SANCHEZ Thank you for referr ing JOCELYN ARELLANO to [facility]. Legall y authen ticate d by LINO MÉNDEZ MD 2024-0 10-11 12:32: 10 CC'ed Logic: Orderi ng Provid er: KAISER Saleem CC Provid er: STONE D Attend ing Provid er: KAISER TIMOTH Y Referr ing Provid er: KAISER Saleem Admitt ing Provid er: KAISER Saleem [email or web address] [facility] (Radiology) [address], [place], [address], 10/24/2024 11:33:24 Result Notes None recorded. Problems Name Problem SNOMED Code Status Onset Date Resolution Date Notes Provider Name and Address Organization Details Recorded Time Inflammation of sacroiliac joint 47117432 Active 2024 BERTA SAAB [address], [address], [place] [facility] [place] & [place] 5 10:12:37 Lumbar spondylosis 162298249 Active 2024 BERTA SAAB [address], [address], [place] [facility] [place] & [place] 5 10:12:40 Post-laminecto my syndrome 63702926 Active 2024 BERTA SAAB [address], [address], [place] [facility] - [place] & [place] 5 16:25:09 Chronic kidney disease 270070383 Active 2024 BERTA SAAB [address], [address], [place] [facility] - [place] & [place] 5 16:25:10 Chronic low back pain 883006779 Active 2024 BERTA SAAB [address], [address], [place] - [facility] - [place] & [place] 5 16:25:11 Nicotine dependence 37702243 Active 2024 BERTA SAAB [address], [address], [place] - [facility] - [place] & [place] 5 16:35:55 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 Procedures Surgical History Date Name Laterality Status Provider Name and Address Organization Details Recorded Time 3 Other completed Teresa MONTEJO - [facility] - [place] & [place] 10/16/2024 14:27:14 0 Back Surgery completed [facility] [place] 10/16/2024 14:27:14 4 Other completed Teresa Jag MONTEJO - [facility] [place] 10/16/2024 14:27:14 Imaging Results None recorded. Procedure Notes None recorded. Medical Equipment None Reported. Allergies No known drug allergies Medications Name Sig Start Date Stop Date Status Note LastModified by Organization Details LastModified Time atorvastatin 80 mg tablet TAKE 1 TABLET BY MOUTH DAILY active Not Available Not Available Not Available lamotrigine 200 mg tablet TAKE 1 TABLET BY MOUTH DAILY active Not Available Not Available Not Available trazodone 50 mg tablet TAKE 1 TABLET BY MOUTH EVERY NIGHT AT BEDTIME NEEDED FOR INSOMNIA active Not Available Not Available No t Available metoprolol tartrate 100 mg tablet TAKE 1 TABLET BY MOUTH TWICE DAILY active Not Available Not Available No t Available valacyclovir 1 gram tablet TAKE 1 TABLET BY MOUTH EVERY 8 HOURS FOR 14 DAYS active Not Available Not Available No t Available hydralazine 25 mg tablet TAKE 1 TABLET BY MOUTH TWICE DAILY active Not Available Not Available No t Available amitriptylin e 50 mg tablet TAKE 1 TABLET BY MOUTH DAILY active Not Available Not Available Not Available levothyroxin e 75 mcg tablet TAKE 1 TABLET BY MOUTH 30 TO 60 MINUTES BEFORE BREAKFAST DAILY active Not Available Not Available No t Available amitriptylin e 25 mg tablet TAKE 3 TABLET BY MOUTH AT BEDTIME NEEDED FOR SLEEP active Not Available Not Available No t Available amlodipine 10 mg tablet TAKE 1 TABLET BY MOUTH DAILY active Not Available Not Available Not Available pantoprazole 40 mg tablet,delay ed release TAKE 1 TABLET BY MOUTH EVERY DAY active Not Available Not Available No t Available valsartan 320 mg tablet TAKE 1 TABLET BY MOUTH DAILY active Not Available Not Available Not Available oxycodone-ac etaminophen 7.5 mg-325 mg tablet TAKE 1 TABLET BY MOUTH EVERY 6 HOURS active Not Available Not Available No t Available cefdinir 300 mg capsule TAKE 1 CAPSULE BY MOUTH EVERY 12 HOURS FOR 10 DAYS active Not Available Not Available Not Available amitriptylin e 100 mg tablet TAKE 1 TABLET BY MOUTH DAILY active Not Available Not Available Not Available lamotrigine 100 mg tablet TAKE 1 TABLET BY MOUTH DAILY active Not Available Not Available Not Available levothyroxin e 112 mcg tablet TAKE 1 TABLET BY MOUTH DAILY active Not Available Not Available Not Available verapamil ER 120 mg 24 hr capsule,exte nded release TAKE 1 CAPSULE BY MOUTH DAILY active Not Available Not Available Not Available duloxetine 60 mg capsule,dipesh yed release TAKE 1 CAPSULE BY MOUTH DAILY active Not Available Not Available Not Available cholecalcife rol (vitamin D3) 1,250 mcg (50,000 unit) capsule TAKE 1C BY MOUTH ONCE WEEKLY FOR VITAMIN DEFICIENCY active Not Available Not Available N ot Available Vitamin D3 50 mcg (2,000 unit) tablet TAKE 1 TABLET BY MOUTH EVERY DAY active Not Available Not Available No t Available Breyna 80 mcg-4.5 mcg/actuatio n HFA aerosol inhaler INHALE 2 PUFFS BY MOUTH TWICE DAILY RINSE MOUTH AFTER EACH USE active Not Available Not Available No t Available Vitals Date Recorded Body weight Body temperature Oxygen saturation Oxygen saturation in Arterial blood by Pulse oximetry Heart rate Systolic blood pressure Diastolic blood pressure Provider Name and Address Organization Details Last Updated DateTime 5 77798.3 2 g 97.5 [degF] 100 % 100 % 56 /min 183 mm[Hg] 90 mm[Hg] Teresa HANSON [facility] & [place] 5 09:39:22 Social History Question Answer Notes LastModified by Organizat ion Details LastModified Time Tobacco Smoking Status Current Every Day Smoker Teresa Jag cook, GUSTABO HANSON [facility] & [place] 10/16/2024 14:27:11 Do You Have An Advance Directive? No [email or web address] Information not available 10/16/2024 What Is Your Level Of Alcohol Consumption? None [email or web address] Information not available 10/16/2024 Are You Blind Or Do You Have Difficulty Seeing? No Information not available 10/16/2024 What Was The Date Of Your Most Recent Tobacco Screening? 10/13/2024 [email or web address] Information not available 10/16/2024 Are You Passively Exposed To Smoke? Yes [email or web address] Information no t available 10/16/2024 Do You Or Have You Ever Used Smokeless Tobacco? Never Used Smokeless Tobacco [email or web address] Information not available 10/16/2024 How Much Tobacco Do You Smoke? 1 PPD Information not available 10/16/2024 Do You Feel Stressed (tense, Restless, Nervous, Or Anxious, Or Unable To Sleep At Night)? [id number] [email or web address] Information not available 10/16/2024 Do You Use Any Illicit Or Recreational Drugs? Yes [email or web address] Information not available 10/16/2024 How Many Years Have You Smoked Tobacco? 50 [email or web address] Information not available 10/16/2024 Sex: Female Functional Status Question Answer Note LastModified by Organizat ion Details LastModified Time What is your exercise level? Occasional [email or web address] Information not available 10/16/2024 Mental Status None recorded. Family History Nothing Reported. Medical History Condition Response Reflux/GERD Y Headaches Y Back Problems Y Kidney or Bladder Problems Y Thyroid Problems Y Hypertension Y COPD Y Lung Disease Y Gynecological HistoryNo gynecological history recorded. Obstetrics History GPAL:G 0 P 0 0 0 0 Past Encounters Encounter ID Performer Location Encounter Start Date Encounter Closed Date Diagnosis/Indication Diagnosis SNOMED-CT Code Diagnosis ICD10 Code Diagnosis Note [id number] BERTA SAAB DO [facility] [address] [place] [address] 10/02/2024 09:22:55 10/02/2024 10:32:07 Inflammation of sacroiliac joint 61813381 M46.1 Lumbar spondylosis 95750 0009 M47.896 Post-latasha ectomy syndrome 46037773 M96.1 Chronic ki dney disease 752705881 N18.9 Chronic low back pain 27 3545166 M54.50 G89.29 Nicotine dependence 5629 4008 F17.200 Health Concerns Section Related Observation LastModified by Organization Detai ls LastModified Time None Recorded Concern Status LastModified by Organization Details LastModified Time None Recorded Payers Encounter Date Sequence Insurance Name Policy Number Policy Howard Covered Member ID Howard Member ID Guarantor Name 10/02/2024 1 KATHY-[place]: AMY CHAVEZ OF [place] - [employer] (MEDICARE REPLACEMENT HMO) [id number] Jocelyn Arellano [id number] Jocelyn Arellano Notes Date Note Type Note Provider Name and Address Organization Details Recorded Time text/html Patient presented with chronic low back pain for several years and with a previous history of lumbar spinal fusion. She has been treated previously by the pain treatment Center in [facility]. She asked to leave and be seen by a different interventional pain physician. She supposedly has a medical marijuana card. She has not received injections and was being treated with medication management Referral: Alida MATAOX-WWYN-frjogsk use disorder, CAD, hypothyroidism, HTN, CKD stage 3b- prior Lumbar fusion {{DATE 10/02/2024}}: Initial complaint: chronic lower back pain localized to the low back/lumbar spine with referred symptoms into their {{Left Right B/L*}} hips and sometimes down their lower extremities.lower back pain localized to the low back/lumbar spine. Onset: {{1 - 2 months 3 - 4 months 5 months >6 months 1 year 1 - 2 years 2 - 3 years >3 years >5 years* > 8 years >10 years}} Pain Location: low back Course: {{progressing over several days constant over several days progressing over several months to a year constant over several months to a year progressing over several years* constant over several years}} Pain Quality: sharp, dull, achy, deep, tingling, stiffness Pain Intensity: {{1 2 3 4 5 6 7* 8 9 10}} / 10 Aggravating Factors: prolong standing, prolong sitting, leaning backwards, lying flat, riding in cars for long periods, twisting Alleviating Factors: opioid medicationAssociated Symptoms: {{foot drop numbness tingling*}} referring to {{right left b/l*}} {{UE LE shoulder trapeziu s elbow finger(s) thumb h ip(s)* buttock(s) lateral thigh medial thigh anterior thigh posterior LE knee(s)}}-Patient currently denies saddle anesthesia, bowel/bladder incontinence, worsening/progressive weakness.-Functional Goals of Treatment: Reduce the pain level by 50% or more and restore function/mobility/quality of life.Current Medication:Opioids: {{None* Tramadol Hydrocod one 5 Hydrocodone 7.5 Hydrocodone 10 Oxycodone 5 Oxycodone 7.5 Oxycodone 10 dilaudid morphine 15 morphine 30 methadone suboxone fen tanly patch Codeine}}NSAIDS: {{None* ibuprofen Meloxic am naproxen diclofenac ce lecoxib Ketorolac mefenam ic acid etoricoxib indometha angelito}}Muscle Relaxers:{{None* methocar bamol carisoprodol chlorz oxazone cyclobenzaprine o rphenadrine metaxalone da ntrolene baclofen}}Others : {{lidocaine patch tylenol* Gabapentin Lyrica Cymbalta}}Previou s Non-Interventional Treatment:- {{heat/ice, NSAIDS, TENS unit, lidocaine patch, chiropractor, PT, HEP*}}Interventions/Consu lts:-Neurosurgery: {{none cervical thoracic lumbar* }}{{laminectomy, fusion* multilevel fusion multiple spinal surgeries anterior cervical fusion discectomy Kyphopl asty scoliosis surgery Lumbar interbody fusion}}-Orthopedics: {{none* right left}}-Inte rventional pain: {{none* DIANNE LESI shoulde r hip knee piriformis SIJ TPIs SCS IT pump PNS cervical mbbs thoracic mbbs lumbar Mbbs cervica RFA thoracic RFA lumbar RFA}}-Podiatry: {{none* foot surgery}}Smoking: {{yes* no quit recently quite >10 years ago}}Diabetes: {{no* DM 1 DM2}}A1C: {{<5.7 5.7 - 6 6.1 - 7 7.1 - 7.9 >8 unknown*}}Anticoag ulation: {{None* Warfarin Apixaban (eliquis) rivaroxaban(Xar elto) fondaparinux}}Antip latelets: {{None* ASA Clopidogrel (plavix) ticagrelor (Brilinta) cilostazol dip yridamole prasugrel (Effient)}}Work Status: {{employed unemployed ret ired* disability}} BERTA SAAB, DO [address] [facility], [place], [address], [facility] 10/02/2024 16:36:20 OBGyn Episode No OBEpisode recorded.
--- OUTSIDE RECORDS SUMMARY | 2024-10-25 19:33 | XMS_ITS | Continuity of Care Document ---
Author Organization [facility] New Address [address] [place] [address] Care Team Providers Care [facility] Sales Manager Name Role Phone [facility] Referring Provider Assessment Encounter Date Assessment Date Assessment LastModified by Organization Details LastModified Time 10/16/2024 10/16/2024 Images reviewed previously lumbarMRI 2009: moderate to severe DDD, multilevel disc space narrowing, multilevel facet hypertrophy Images reviewed today mtkceoLbzur38/27/ 2025: Severe DDD, previous hardware appreciated, multilevel facet hypertrophy 10/16/2024: Plan Today, I discussed with the patient about my current findings based on their history and/or physical exam. They have multiple pain generators, however I will treat their pain in a stepwise plan as outlined below. 1. #Axial Low Back Pain, Chronic worsening #Lumbar Spondylosis #Facetogenic pain - patient has completed physical therapy within the past 6 months. - Lumbar x-ray reviewed and interpreted my findings as above. appears to be L2 wedge shaped compression fracture on x-ray. Would like to order a MRI to evaluate for acuity of compression fracture. Also like to order MRI to evaluate for central and neural foraminal stenosis. MRI will have to be done at pro [facility] because of her to renal artery stents - for now, I will perform bilateral T12-L2 medial branch blocks under fluoroscopic guidance. 2. #Postlaminectomy Syndrome, Chronic worsening #Chronic Pain -Symptoms [...] is obtained and patient is considered non-surgical 3. #b/l Sacroiliac Joint Pain, Chronic worsening -Patient has >3 provocative exam maneuvers which include + emmanuel's finger, CHEPE, thigh thrust, compression, distraction, Gaenslen's -Will like to schedule ab/l diagnostic SI joint injection under flouroscopic guidance in the future #Chronic Pain Syndrome #Opioid Dependence #Chronic Prescription Controlled Substance Use -Drug therapy requiring intensive monitoring for toxicity. Patient was getting opioid medication from a different pain treatment Center. She is getting oxycodone/APAP 7.5/325 qid from Yuri Murphy. She reported that she requested to leave and be seen by a different physician. Her last prescription was filled 07/09/2024. A. Controlled Substance agreement: Not signed today. Not starting scheduled medication B. UDS results reviewed: 10/02/2024 reviewed, positive for marijuana. confirmation was also Positive for marijuana. Patient reported she had a medical marijuana card however looking through her documents she brought today that were not filled out and there was no indication that this was legal marijuana card. C. PDMP/MIKAELA report obtained today and reviewed: reviewed and Appropriate Maira AL: [id number] E. As documented in the signed controlled [...] of developing and presence of these conditions). [email or web address] Not available 10/16/2024 15:05:13 Plan of Treatment Reminders Order Date Submit Date Provider Last Modified By Organization Details Last Modified Time Details Appointments PROC 15 2024 01:00P Arcenio SAAB, DO Not available Not available Not available Lab None recorded . Referral None recorded . Procedures medial branch block, lumbar (PROC) - 22441, 37424 bilatera l t12- L1 MBB#1 2024 025 [email or web address] Joe Saab DO, [address] [facility], [address], [place], [address], 10/16/2024 16:19:12 Surgeries None recorded . Imaging MRI, lumbar spine, w/o contrast - please evaluate for central and neural foramina l stenosis , MODIC changes, spondylo thesis, b/l pars defect and angular stabilit y, DDD, lumbosac ral transiti onal anatomy 2024 025 [facility], [address] [place] [address], [address], 10/16/2024 15:40:44 Medication Orders None recorded . Patient TargetsNo targets recorded. Patient Instructions Encounter Date Encounter Id Patient Instructions Last Modified By Organization Details Last Modified Time 10/16/2024 [id number] I have discussed in great detail our [...] the benefits of the procedure and interventions. [email or web address] Not available 10/16/2024 14:26:17 Reason for Referral None Reported. Results Created Date Observation Date Name Description Value Unit Range Abnormal Flag Note LastModifiedBy Organization Detail LastModifiedTime 10/16/1910/11/2024 XR, lumba r spine , 2 view No observ ation record ed. [facility] ([facility] [address] [place], [address], 10/24/2024 12:23:11 10/16/1910/11/2024 XR, lumba r spine [facility] [address] [place] [address] Phone: Fax: Name: JOCELYN ARELLANO Exam Date: 025 : 1954 Age 69 years Gender : F Access ion: [id number] Physic christopher: IRVIN SAAB [place]: [place] Fac[place] HSV: Outpat ient Exam: LUMBAR [...] SANCHEZ Transc ribed By: Transc ribed On: 025 12:32 PM Electr onical ly signed by: DEV SANCHEZ Thank you for referr JOCELYN Montelongo to [facility] Hospit al. Legall y authen ticate d by LINO MÉNDEZ MD 2024-0 10-11 12:32: 10 CC'ed Logic: Orderi ng Provid er: KAISER Saleem CC Provid er: STONE D Attend ing Provid er: KAISER Saleem Referr ing Provid er: KAISER Saleem Admitt ing Provid er: KAISER Saleem [email or web address] [facility] (Radiology) [address] [facility], [place], [address], 10/24/2024 11:33:24 Result Notes None recorded. Problems Name Problem SNOMED Code Status Onset Date Resolution Date Notes Provider Name and Address Organization Details Recorded Time Inflammation of sacroiliac joint 85473222 Active 20[address] JOE SAAB [address], [address], [place] - [facility] - [place] & [place] 5 10:12:37 Lumbar spondylosis 678308495 Active 2024 JOE SAAB [address], [address], [place] - [facility] - [place] & [place] 5 10:12:40 Post-laminecto my syndrome 52985818 Active 2024 JOE SAAB [address], [address], [place] [facility] & [place] 5 16:25:09 Chronic kidney disease 666160208 Active 2024 JOE SAAB [address], [address], [place] - [facility] & [place] 5 16:25:10 Chronic low back pain 344795435 Active 2024 JOE SAAB [address], [address], [place] - [place] - [facility] & [place] 5 16:25:11 Nicotine dependence 45501545 Active 2024 JOE KAISER [address] [facility], [place], [address], [place] - [place] - [facility] & [place] 5 16:35:55 Stenosis of spinal canal due to intervertebral disc 650211886 Active 2024 JOE SAAB [address] [facility], [place], [address], [place] - [facility] & [place] 5 15:05:22 Closed fracture lumbar vertebra, wedge 134220490 Active 2024 JOE SAAB [address] [facility], [place], [address], [place] - VALENT[place] - [place] & [place] 5 15:06:57 Problem Notes None recorded. Procedures Surgical History Date Name Laterality Status Provider Name and Address Organization Details Recorded Time 3 Other completed [facility] [place] - [place] [facility] & [place] 10/16/2024 14:27:14 0 Back Surgery completed [facility] [place] - [place] & [place] 10/16/2024 14:27:14 4 Other completed [facility] [place] - [place] - [place] & [place] 10/16/2024 14:27:14 Imaging Results None recorded. Procedure [...] Address Organization Details Last Updated DateTime 5 44247.4 5 g 97.6 [degF] 99 % 99 % 53 /min 156 mm[Hg] 82 mm[Hg] Teresa Rm [place] - [facility] & [place] 14:26:37 Social History Question Answer Notes LastModified by Organizat ion Details LastModified Time Tobacco Smoking Status Current Every Day Smoker Teresa Rm null, [place] - [place] [facility] & [place] 10/16/2024 14:27:11 Do You Have An Advance Directive? No Information not available 10/16/2024 What Is Your Level Of Alcohol Consumption? None [email or web address] Information not available 10/16/2024 Are You Blind Or Do You Have Difficulty Seeing? No [email or web address] Information not available 10/16/2024 What Was The Date Of Your Most Recent Tobacco Screening? 10/13/2024 [email or web address] Information not available 10/16/2024 Are You Passively Exposed To Smoke? Yes Information no t available 10/16/2024 Do You Or Have You Ever Used Smokeless Tobacco? Never Used Smokeless Tobacco [email or web address] Information not available 10/16/2024 How Much Tobacco Do You Smoke? 1 PPD [email or web address] Information not available 10/16/2024 Do You Feel Stressed (tense, Restless, Nervous, Or Anxious, Or Unable To Sleep At Night)? [id number] Information not available 10/16/2024 Do You Use Any Illicit Or Recreational Drugs? Yes [email or web address] Information not available 10/16/2024 How Many Years Have You Smoked Tobacco? 50 [email or web address] Information not available 10/16/2024 Sex: Female Functional Status Question Answer Note LastModified by Organizat ion Details LastModified Time What is your exercise level? Occasional [email or web address] Information not available 10/16/2024 Mental Status None recorded. Family History Nothing Reported. Medical History Condition Response Lung Disease Y COPD Y Headaches Y Thyroid Problems Y Kidney or Bladder Problems Y Back Problems Y Reflux/GERD Y Hypertension Y Gynecological HistoryNo gynecological history recorded. Obstetrics History GPAL:G 0 P 0 0 0 0 Past Encounters Encounter ID Performer Location Encounter Start Date Encounter Closed Date Diagnosis/Indication Diagnosis SNOMED-CT Code Diagnosis ICD10 Code Diagnosis Note [id number] JOE SAAB DO [facility] [address] [place], [place] [address] 10/02/2024 09:22:55 10/02/2024 10:32:07 Inflammation of sacroiliac joint 41911834 M46.1 Lumbar spondylosis 68970 0009 M47.896 Post-latasha ectomy syndrome 56783429 M96.1 Chronic ki dney disease 139346855 N18.9 Chronic low back pain 27 0243555 M54.50 G89.29 Nicotine dependence 5629 4008 F17.905 [id number] JOE SAAB DO [facility]- [address] [place] [address] 10/16/2024 13:51:53 10/16/2024 14:53:54 Inflammation of sacroiliac joint 88761849 M46.1 Lumbar spondylosis 49289 0009 M47.896 Post-latasha ectomy syndrome 57159181 M96.1 Chronic ki dney disease 306705950 N18.9 Chronic low back pain 27 3665777 M54.50 G89.29 Nicotine dependence 5629 4008 F17.200 Stenosis o f spinal canal due to intervertebral disc 652325075 M99.53 Closed fra cture lumbar vertebra, wedge 598814126 S32.020D Health Concerns Section Related Observation LastModified by Organization Detai ls LastModified Time None Recorded Concern Status LastModified by Organization Details LastModified Time None Recorded Payers Encounter Date Sequence Insurance Name Policy Number Policy Howard Covered Member ID Howard Member ID Guarantor Name 10/16/2024 1 [place] [facility] [employer] (MEDICARE REPLACEMENT HMO) [id number] Jocelyn Arellano [id number] Jocelyn Arellano Notes Date Note Type Note Provider Name and Address Organization Details Recorded Time text/html Patient presented with chronic low back pain for several years and with a previous history of lumbar spinal fusion. She has been treated previously by the pain treatment Center in [facility]. She asked to leave and be seen by a different interventional pain physician. She did not receive injections and was being treated with medication management Referral: Alida MATANM-DJIC-nbloewp use disorder, CAD, hypothyroidism, HTN, CKD stage 3b- prior L3-5 Fusion Interval History {{DATE 10/16/2024}}: Patient presents today for recurrent chronic thoracolumbar pain and to f/u to review imaging that has been completed since the last visit. She is also here with her son again. Last visit we obtain drug screen send the urine admission. We reviewed the urine and confirmation, both which show THC. Patient reported again she had marijuana card saw Dr. Miller who issued her a marijuana license. However, look through the folder not see any documentation that proves she has a legal marijuana card. Patient continues to report midline thoracolumbar pain above her lumbar fusion that is worsening since the last visit. She has pain that is worse with extension and flexion. She also has right-sided sacroiliac joint pain that is sometimes causes significant trouble as well. Patient currently denies saddle anesthesia, bowel/bladder incontinence, worsening/progressive weakness. Functional Goals of Treatment: Reduce the pain level by 50% or more and restore function/mobility/quality of life. {{DATE 10/02/2024}}: Initial complaint: chronic lower back pain localized to the low back/lumbar spine with referred symptoms into their {{Left Right B/L*}} hips and sometimes down their lower extremities.lower back pain localized to the low back/lumbar spine.Onset: {{1 - 2 months 3 - 4 months 5 months >6 months 1 year 1 - 2 years 2 - 3 years >3 years >5 years* > 8 years >10 years}}Pain Location: low backCourse: {{progressing over several days constant over several days progressing over several months to a year constant over several months to a year progressing over several years* constant over several years}}Pain Quality: sharp, dull, achy, deep, tingling, stiffnessAggravating Factors: prolong standing, prolong sitting, leaning backwards, lying flat, riding in cars for long periods, twistingAlleviating Factors: opioid medicationAssociated Symptoms: {{foot drop numbness tingling*}} referring to {{right left b/l*}} {{UE LE shoulder trapeziu s elbow finger(s) thumb h ip(s)* buttock(s) lateral thigh medial thigh anterior thigh posterior LE knee(s)}}Current Medication:Opioids: {{None* Tramadol Hydrocod one 5 Hydrocodone [...] (Effient)}}Work Status: {{employed unemployed ret ired* disability}} JOE SAAB, [address], [place], [address], [facility] 10/16/2024 15:57:07 OBGyn Episode No OBEpisode recorded.
--- OUTSIDE RECORDS SUMMARY | 2024-10-25 19:33 | XMS_ITS ---
Laboratory report Created on: October 13, 2024 TAHIR ARELLANO : 1955 Sex: Female Author Name JONATHON BURTON Organization Unknown PROBLEMS Problems List Code Description Z11.59 Z11.4 I10 RESULTS Laboratory Orders Date Order Code Test 2024-10-09 [id number] HCV ANTIBODY [place] BEE(PCR/JEWELL) 2024-10-09 [id number] TSH 2024-10-09 913591 VITAMIN D, 25-HY DROXY 2024-10-09 537521 CBC WITH DIFFERE NTIAL/PLATELET 2024-10-09 [id number] COMP. METABOLIC PANEL (14) 2024-10-09 880873 LIPID PANEL Laboratory Results Date LOINC Test Value Unit Reference Range Interpre tation 2024-10-09 29204-2 HCV AB ARIELA NON REACTIVE A 2024-10-09 93168-5 HEPATITIS C QUANTITATION HCVTND IU/ML 2024-10-09 74753-7 INTERPRETATION: NNAT 2024-10-09 HCV GENOTYPE RTNI 2024-10-09 29869-6 TSH .068 UIU/ML 0.450-4.500 L 2024-10-09 33285-7 VITAMIN D, 25-HYDROXY 50.9 NG/ML 30.0-100.0 2024-10-09 6690-2 WBC 8 X10E3/UL 3.4-10.8 2024-10-09 789-8 RBC 3.92 X10E6/UL 3.77-5.28 2024-10-09 718-7 HEMOGLOBIN 13 G/DL 11.1-15.9 2024-10-09 4544-3 HEMATOCRIT 39.7 % 34.0-46.6 2024-10-09 787-2 MCV 101 FL 79-97 H 2024-10-09 785-6 MCH 33.2 PG 26.6-33.0 H 2024-10-09 786-4 MCHC 32.7 G/DL 31.5-35.7 2024-10-09 788-0 RDW 11.4 % 11.7-15.4 L 2024-10-09 777-3 PLATELETS 298 X10E3/UL 067-638 0734-03-25 770-8 NEUTROPHILS 65 % 2024-10-09 736-9 LYMPHS 22 % 2024-10-09 5905-5 MONOCYTES 9 % 2024-10-09 713-8 EOS 2 % 2024-10-09 706-2 BASOS 1 % 2024-10-09 751-8 NEUTROPHILS (ABSOLUTE) 5.3 X10E3/UL 1.4-7.0 2024-10-09 731-0 LYMPHS (ABSOLUTE) 1.8 X10E3/UL 0.7-3.1 2024-10-09 742-7 MONOCYTES(ABSOLUTE) .7 X10E3/UL 0.1-0.9 2024-10-09 711-2 EOS (ABSOLUTE) .2 X10E3/UL 0.0-0.4 2024-10-09 704-7 BASO (ABSOLUTE) .1 X10E3/UL 0.0-0.2 2024-10-09 04224-8 IMMATURE GRANULOCYTES 1 % 2024-10-09 81420-0 IMMATURE GRANS (ABS) .1 X10E3/UL 0.0-0.1 2024-10-09 2345-7 GLUCOSE 94 MG/DL 70-99 2024-10-09 3094-0 BUN 13 MG/DL 8-27 2024-10-09 2160-0 CREATININE 1.71 MG/DL 0.57-1.00 H 2024-10-09 83263-1 EGFR 32 ML/MIN/1.7 3 >59 L 2024-10-09 3097-3 BUN/CREATININE RATIO 8 12-28 L 2024-10-09 2951-2 SODIUM 140 MMOL/L 399-500 4431-03-25 2823-3 POTASSIUM 3.9 MMOL/L 3.5-5.2 2024-10-09 2075-0 CHLORIDE 106 MMOL/L 96-106 2024-10-09 2028-9 CARBON DIOXIDE, TOTAL 18 MMOL/L 20-29 L 2024-10-09 24968-7 CALCIUM 9.7 MG/DL 8.7-10.3 2024-10-09 2885-2 PROTEIN, TOTAL 6.9 G/DL 6.0-8.5 2024-10-09 1751-7 ALBUMIN 4.5 G/DL 3.9-4.9 2024-10-09 07917-1 GLOBULIN, TOTAL 2.4 G/DL 1.5-4.5 2024-10-09 1975-2 BILIRUBIN, TOTAL <0.2 MG/DL 0.0-1.2 2024-10-09 6768-6 ALKALINE PHOSPHATASE 90 IU/L 44-121 2024-10-09 1920-8 AST (SGOT) 16 IU/L 0-40 2024-10-09 1742-6 ALT (SGPT) 11 IU/L 0-32 2024-10-09 2093-3 CHOLESTEROL, TOTAL 137 MG/DL 081-405 1227-03-25 2571-8 TRIGLYCERIDES 87 MG/DL 0-149 2024-10-09 2085-9 HDL CHOLESTEROL 59 MG/DL >39 2024-10-09 66976-8 VLDL CHOLESTEROL MADDISON 17 MG/DL 5-40 2024-10-09 84284-2 LDL CHOL CALC ([facility]) 61 MG/DL 0-99
--- OUTSIDE RECORDS SUMMARY | 2024-10-25 19:33 | XMS_ITS | Continuity of Care Document ---
Author Name [facility] Organization [facility] Care Team Providers Care Gusset Ripper Name Role Phone [facility] Unavailable Unavailable Immunizations Combined list of available immunizations from the Department of Defense and Veterans Affairs facilities. Immunization Series Date Given Administered By Site Reaction Lot Number CVX Code Drug Warehouse Picker Status Comments Source COVID-19 (PFIZER), MRNA, LNP-S, PF, 30 MCG/0.3 ML DOSE 2 2020 208 complet ed PFR; [id number]; [facility] [place] [facility] COVID-19 (PFIZER), MRNA, LNP-S, PF, 30 MCG/0.3 ML DOSE 1 2020 208 complet ed PFR; [id number]; 1 [place]
--- OUTSIDE RECORDS SUMMARY | 2024-10-25 19:33 | XMS_ITS | Data Portability ---
Author Organization [place] - [facility] - [facility] VALENTIN Dumont ADMIN Address [address] [place] [id number] Care Team Providers Care Fund Accounting Manager Name Role Phone [facility] Referring Provider Assessment Encounter Date Assessment Date Assessment LastModified by Organization Details LastModified Time 10/02/2024 10/02/2024 Images reviewed today lumbarMRI 2010: moderate to severe DDD, multilevel disc space [...] and reviewed: reviewed and Appropriate Maira AL: [id number] E. As documented in the signed controlled [...] of developing and presence of these conditions). [email or web address] Not available 10/02/2024 16:32:06 10/16/2024 10/16/2024 Images reviewed previously lumbarMRI 2009: moderate to severe DDD, multilevel disc space narrowing, multilevel facet hypertrophy Images reviewed today [id number]/27/ 2025: Severe DDD, previous hardware appreciated, multilevel [...] indication that this was legal marijuana card. Ember. PDMP/MIKAELA report obtained today and reviewed: reviewed and Appropriate Maira AL: [id number] E. As documented in the signed controlled [...] of developing and presence of these conditions). [email or web address] Not available 10/16/2024 15:05:13 Plan of Treatment Reminders Order Date Submit Date Provider Last Modified By Organization Details Last Modified Time Details Appointments PROC 15 2024 01:00P Arcenio SAAB, DO Not available Not available Not available Lab None recorded . Referral None recorded . Procedures medial branch block, lumbar (PROC) - 69099, [address] bilatera l t12- L1 MBB#1 2024 025 [email or web address] Joe Saab DO, [address] [facility], [place] [address], [place], [address], 10/16/2024 16:19:12 Surgeries None recorded . Imaging MRI, lumbar spine, w/o contrast - please evaluate for central and neural foramina l stenosis , MODIC changes, spondylo thesis, b/l pars defect and angular stabilit y, DDD, lumbosac ral transiti onal anatomy 2024 025 [email or web address] [facility], [address] [place] [address], [place], [address], 10/16/2024 15:40:44 XR, lumbar spine, 2 view - please evaluate for spondylo thesis, b/l pars defect and angular stabilit y 2024 025 [email or web address] [facility] ([facility]), [address] , [place], [address], 10/15/2024 14:33:01 Medication Orders None recorded . Patient TargetsNo targets recorded. Patient InstructionsNo instructions recorded. Reason for Referral None Reported. Results Created Date Observation Date Name Description Value Unit Range Abnormal Flag Note LastModifiedBy Organization Detail LastModifiedTime 10/03/19 25 10/05/2024 TOXAS SURE FLEX 24, UR summary report FINAL ===== ===== ===== ===== ===== ===== ===== ===== ===== ===== ===== ===== ===== === Canna binoi ds, MS, Ur RFX Aceta minop hen, MS, Ur RFX ToxAs sure Flex 24, Ur ===== ===== ===== ===== ===== ===== ===== ===== ===== ===== ===== ===== ===== === Test Resul t Flag Units Drug Prese nt Carbo xy-TH C 151 ng/mg creat Carbo xy-TH C is a metab olite of tetra hydro canna binol (THC) . Sourc e of THC is most commo nly herba l marij uana or marij uana- based produ cts, but THC is also prese nt in a sched uled presc ripti on medic ation . Trace amoun ts of THC can be prese nt in hemp and canna bidio l (CBD) produ cts. This test is not inten ded to disti nguis h betwe en delta -9-te trahy droca nnabi nol, the predo minan t form of THC in most herba l or marij uana- based produ cts, and delta -8-te trahy droca nnabi nol. Aceta minop hen PRESE NT ===== ===== ===== ===== ===== ===== ===== ===== ===== ===== ===== ===== ===== === Test Resul t Flag Units Ref Range Creat inine 47 mg/dL >=20 ===== ===== ===== ===== ===== ===== ===== ===== ===== ===== ===== ===== ===== === Decla red Medic ation s: Medic ation list was not provi ded. ===== ===== ===== ===== ===== ===== ===== ===== ===== ===== ===== ===== ===== === For clini luisito consu ltati on, pleas e call . ===== ===== ===== ===== ===== ===== ===== ===== ===== ===== ===== ===== ===== === Not Available [facility] ([facility]) [address] [place], [address], 10/06/2024 07:13:11 10/03/19 25 10/05/2024 TOXAS SURE FLEX 24, UR pdf . Not Available [facility] ([facility]) [address] [place], [address], 10/06/2024 07:13:11 10/03/19 25 10/05/2024 TOXAS SURE FLEX 24, UR creatinine 47 mg/dL REFER ENCE RANGE : Ref Range >=20 Not Available [facility] ([facility]) [address] [place], [address], 10/06/2024 07:13:11 10/03/19 25 10/05/2024 TOXAS SURE FLEX 24, UR amphetamines ia Negati ve NG/mL cutoff :300 Not Available [facility] ([facility]) [address] [place], [address], 10/06/2024 07:13:11 10/03/19 25 10/05/2024 TOXAS SURE FLEX 24, UR benzodiazepi emi Negati ve Not Available [facility] ([facility]) [address] [place], [address], 10/06/2024 07:13:11 10/03/19 25 10/05/2024 TOXAS SURE FLEX 24, UR diazepam Not Detect ed NG/mg _crea t Not Available [facility] ([facility]) [address] [place], [address], 10/06/2024 07:13:11 10/03/19 25 10/05/2024 TOXAS SURE FLEX 24, UR desmethyldia zepam Not Detect ed NG/mg _crea t Not Available [facility] ([facility]) [address] [place], [address], 10/06/2024 07:13:11 10/03/19 25 10/05/2024 TOXAS SURE FLEX 24, UR oxazepam Not Detect ed NG/mg _crea t Not Available [facility] ([facility]) [address] [place], [address], 10/06/2024 07:13:11 10/03/19 25 10/05/2024 TOXAS SURE FLEX 24, UR temazepam Not Detect ed NG/mg _crea t Expec darlin metab olism of benzo diaze pine class drugs : Paren t Drug Detec darlin Metab olite s ----- ----- - ----- ----- ----- ----- Diaze marely: Desme thyld iazep am, Temaz epam, Oxaze marely Chlor diaze poxid e: Desme thyld iazep am, Oxaze marely Clora zepat e: Desme thyld iazep am, Oxaze marely Halaz epam: Desme thyld iazep am, Oxaze marely Temaz epam: Oxaze marely Oxaze marely: None Not Available [facility] ([facility]) [address] [place], [address], 10/06/2024 07:13:11 10/03/19 25 10/05/2024 TOXAS SURE FLEX 24, UR alprazolam Not Detect ed NG/mg _crea t Not Available [facility] ([facility]) [address] [place], [address], 10/06/2024 07:13:11 10/03/19 25 10/05/2024 TOXAS SURE FLEX 24, UR alpha-hydrox yalprazolam Not Detect ed NG/mg _crea t Not Available [facility] ([facility]) [address] [place], [address], 10/06/2024 07:13:11 10/03/19 25 10/05/2024 TOXAS SURE FLEX 24, UR desalkylflur azepam Not Detect ed NG/mg _crea t Not Available [facility] ([facility]) [address] [place], [address], 10/06/2024 07:13:11 10/03/19 25 10/05/2024 TOXAS SURE FLEX 24, UR lorazepam Not Detect ed NG/mg _crea t Not Available [facility] ([facility]) [address] [place], [address], 10/06/2024 07:13:11 10/03/19 25 10/05/2024 TOXAS SURE FLEX 24, UR alpha-hydrox ytriazolam Not Detect ed NG/mg _crea t Not Available [facility] ([facility]) [address] [place], [address], 10/06/2024 07:13:11 10/03/19 25 10/05/2024 TOXAS SURE FLEX 24, UR clonazepam Not Detect ed NG/mg _crea t Not Available [facility] ([facility]) [address] [place], [address], 10/06/2024 07:13:11 10/03/19 25 10/05/2024 TOXAS SURE FLEX 24, UR 7-aminoclona zepam Not Detect ed NG/mg _crea t Not Available [facility] ([facility]) [address] [place], [address], 10/06/2024 07:13:11 10/03/19 25 10/05/2024 TOXAS SURE FLEX 24, UR midazolam Not Detect ed NG/mg _crea t Not Available [facility] ([facility]) [address] [place], [address], 10/06/2024 07:13:11 10/03/19 25 10/05/2024 TOXAS SURE FLEX 24, UR alpha-hydrox ymidazolam Not Detect ed NG/mg _crea t Not Available [facility] ([facility]) [address] [place], [address], 10/06/2024 07:13:11 10/03/19 25 10/05/2024 TOXAS SURE FLEX 24, UR flunitrazepa m Not Detect ed NG/mg _crea t Not Available [facility] ([facility]) [address] [place], [address], 10/06/2024 07:13:11 10/03/19 25 10/05/2024 TOXAS SURE FLEX 24, UR desmethylflu nitrazepam Not Detect ed NG/mg _crea t Not Available [facility] ([facility]) [address] [place], [address], 10/06/2024 07:13:11 10/03/19 25 10/05/2024 TOXAS SURE FLEX 24, UR cocaine metabolite ia Negati ve NG/mL cutoff :150 Not Available [facility] ([facility]) [address] [place], [address], 10/06/2024 07:13:11 10/03/19 25 10/05/2024 TOXAS SURE FLEX 24, UR ethyl alcohol enzymatic Negati ve g/dL cutoff :0.020 Not Available [facility] ([facility]) [address] [place], [address], 10/06/2024 07:13:11 10/03/19 25 10/05/2024 TOXAS SURE FLEX 24, UR ethanol biomarkers ia Negati ve NG/mL cutoff :500 Not Available [facility] ([facility]) [address] [place], [address], 10/06/2024 07:13:11 10/03/19 25 10/05/2024 TOXAS SURE FLEX 24, UR cannabinoids ia COMMEN T NG/mL cutoff :20 Furth er testi ng indic ated Not Available [facility] ([facility]) [address] [place], [address], 10/06/2024 07:13:11 10/03/19 25 10/05/2024 TOXAS SURE FLEX 24, UR 6-acetylmorp ezequiel ia Negati ve NG/mL cutoff :10 Not Available [facility] ([facility]) [address] [place], [address], 10/06/2024 07:13:11 10/03/19 25 10/05/2024 TOXAS SURE FLEX 24, UR opiate class ia Negati ve NG/mL cutoff :100 Not Available [facility] ([facility]) [address] [place], [address], 10/06/2024 07:13:11 10/03/19 25 10/05/2024 TOXAS SURE FLEX 24, UR oxycodone class ia Negati ve NG/mL cutoff :100 Not Available [facility] ([facility]) [address] [place], [address], 10/06/2024 07:13:11 10/03/19 25 10/05/2024 TOXAS SURE FLEX 24, UR methadone ia Negati ve NG/mL cutoff :100 Not Available [facility] ([facility]) [address] [place], [address], 10/06/2024 07:13:11 10/03/19 25 10/05/2024 TOXAS SURE FLEX 24, UR methadone mtb ia Negati ve NG/mL cutoff :100 Not Available [facility] ([facility]) [address] [place], [address], 10/06/2024 07:13:11 10/03/19 25 10/05/2024 TOXAS SURE FLEX 24, UR buprenorphin e Negati ve Not Available [facility] ([facility]) [address] [place], [address], 10/06/2024 07:13:11 10/03/19 25 10/05/2024 TOXAS SURE FLEX 24, UR buprenorphin e Not Detect ed NG/mg _crea t Not Available [facility] ([facility]) [address] [place], [address], 10/06/2024 07:13:11 10/03/19 25 10/05/2024 TOXAS SURE FLEX 24, UR norbuprenorp ezequiel Not Detect ed NG/mg _crea t Not Available [facility] ([facility]) [address] [place], [address], 10/06/2024 07:13:11 10/03/19 25 10/05/2024 TOXAS SURE FLEX 24, UR fentanyl / analogues Negati ve Not Available [facility] ([facility]) [address] [place], [address], 10/06/2024 07:13:11 10/03/19 25 10/05/2024 TOXAS SURE FLEX 24, UR fentanyl Not Detect ed NG/mg _crea t Not Available [facility] ([facility]) [address] [place], [address], 10/06/2024 07:13:11 10/03/19 25 10/05/2024 TOXAS SURE FLEX 24, UR norfentanyl Not Detect ed NG/mg _crea t Not Available [facility] ([facility]) [address] [place], [address], 10/06/2024 07:13:11 10/03/19 25 10/05/2024 TOXAS SURE FLEX 24, UR tapentadol ia Negati ve NG/mL cutoff :200 Not Available [facility] ([facility]) [address] [place], [address], 10/06/2024 07:13:11 10/03/19 25 10/05/2024 TOXAS SURE FLEX 24, UR meperidine ia Negati ve NG/mL cutoff :200 Not Available [facility] ([facility]) [address] [place], [address], 10/06/2024 07:13:11 10/03/19 25 10/05/2024 TOXAS SURE FLEX 24, UR propoxyphene ia Negati ve NG/mL cutoff :300 Not Available [facility] ([facility]) [address] [place], [address], 10/06/2024 07:13:11 10/03/19 25 10/05/2024 TOXAS SURE FLEX 24, UR tramadol ia Negati ve NG/mL cutoff :200 Not Available [facility] ([facility]) [address] [place], [address], 10/06/2024 07:13:11 10/03/19 25 10/05/2024 TOXAS SURE FLEX 24, UR barbiturates ia Negati ve NG/mL cutoff :200 Not Available [facility] ([facility]) [address] [place], [address], 10/06/2024 07:13:11 10/03/19 25 10/05/2024 TOXAS SURE FLEX 24, UR sympathomime tics Negati ve Not Available [facility] ([facility]) [address] [place], [address], 10/06/2024 07:13:11 10/03/19 25 10/05/2024 TOXAS SURE FLEX 24, UR atomoxetine Not Detect ed Not Available [facility] ([facility]) [address] [place], [address], 10/06/2024 07:13:11 10/03/19 25 10/05/2024 TOXAS SURE FLEX 24, UR diethylpropi on Not Detect ed Not Available [facility] ([facility]) [address] [place], [address], 10/06/2024 07:13:11 10/03/19 25 10/05/2024 TOXAS SURE FLEX 24, UR mdea Not Detect ed Not Available [facility] ([facility]) [address] [place], [address], 10/06/2024 07:13:11 10/03/19 25 10/05/2024 TOXAS SURE FLEX 24, UR ephedrine/ps eudoephedrin e Not Detect ed Not Available [facility] ([facility]) [address] [place], [address], 10/06/2024 07:13:11 10/03/19 25 10/05/2024 TOXAS SURE FLEX 24, UR methylphenid ate Not Detect ed Not Available [facility] ([facility]) [address] [place], [address], 10/06/2024 07:13:11 10/03/19 25 10/05/2024 TOXAS SURE FLEX 24, UR ritalinic acid Not Detect ed Not Available [facility] ([facility]) [address] [place], [address], 10/06/2024 07:13:11 10/03/19 25 10/05/2024 TOXAS SURE FLEX 24, UR phenmetrazin e Not Detect ed Not Available [facility] ([facility]) [address] [place], [address], 10/06/2024 07:13:11 10/03/19 25 10/05/2024 TOXAS SURE FLEX 24, UR phentermine Not Detect ed Not Available [facility] ([facility]) [address] [place], [address], 10/06/2024 07:13:11 10/03/19 25 10/05/2024 TOXAS SURE FLEX 24, UR phenylpropan olamine Not Detect ed Not Available [facility] ([facility]) [address] [place], [address], 10/06/2024 07:13:11 10/03/19 25 10/05/2024 TOXAS SURE FLEX 24, UR methcathinon e Not Detect ed Not Available [facility] ([facility]) [address] [place], [address], 10/06/2024 07:13:11 10/03/19 25 10/05/2024 TOXAS SURE FLEX 24, UR other hallucinogen s Negati ve Not Available [facility] ([facility]) [address] [place], [address], 10/06/2024 07:13:11 10/03/19 25 10/05/2024 TOXAS SURE FLEX 24, UR ketamine Not Detect ed Not Available [facility] ([facility]) [address] [place], [address], 10/06/2024 07:13:11 10/03/19 25 10/05/2024 TOXAS SURE FLEX 24, UR norketamine Not Detect ed Not Available [facility] ([facility]) [address] [place], [address], 10/06/2024 07:13:11 10/03/19 25 10/05/2024 TOXAS SURE FLEX 24, UR phencyclidin e ia Negati ve NG/mL cutoff :25 Not Available [facility] ([facility]) [address] [place], [address], 10/06/2024 07:13:11 10/03/19 25 10/05/2024 TOXAS SURE FLEX 24, UR gabapentin ia Negati ve ug/mL cutoff :1.0 Not Available [facility] ([facility]) [address] [place], [address], 10/06/2024 07:13:11 10/03/19 25 10/05/2024 TOXAS SURE FLEX 24, UR carisoprodol ia Negati ve NG/mL cutoff :100 Not Available [facility] ([facility]) [address] [place], [address], 10/06/2024 07:13:11 10/03/19 25 10/05/2024 TOXAS SURE FLEX 24, UR sedative/hyp notics Negati ve Not Available [facility] ([facility]) [address] [place], [address], 10/06/2024 07:13:11 10/03/19 25 10/05/2024 TOXAS SURE FLEX 24, UR zolpidem Not Detect ed Not Available [facility] ([facility]) [address] [place], [address], 10/06/2024 07:13:11 10/03/19 25 10/05/2024 TOXAS SURE FLEX 24, UR zolpidem acid Not Detect ed Not Available [facility] ([facility]) [address] [place], [address], 10/06/2024 07:13:11 10/03/19 25 10/05/2024 TOXAS SURE FLEX 24, UR zopiclone/es zopiclone Not Detect ed Not Available [facility] ([facility]) [address] [facility], [place], [address], 10/06/2024 07:13:11 10/03/19 25 10/05/2024 TOXAS SURE FLEX 24, UR amino chloropyridi ne Not Detect ed Not Available [facility] ([facility]) [address] [facility], [place], [address], 10/06/2024 07:13:11 10/03/19 25 10/05/2024 TOXAS SURE FLEX 24, UR zaleplon Not Detect ed Expec darlin metab olism of Sedat florence/ Hypno tics: Paren t Drug Detec darlin Metab olite s ----- ----- - ----- ----- ----- ----- Zolpi dem: Zolpi dem Acid Zopic lone/ Eszop iclon e: Amino Chlor opyri dine Zalep jojo: None Not Available [facility] ([facility]) [address] [facility], [place], [address], 10/06/2024 07:13:11 10/03/19 25 10/05/2024 TOXAS SURE FLEX 24, UR acetaminophe n ia COMMEN T ug/mL cutoff :5.0 Furth er testi ng indic ated Not Available [facility] ([facility]) [address] [facility], [place], [address], 10/06/2024 07:13:11 10/03/19 25 10/05/2024 TOXAS SURE FLEX 24, UR miscellaneou s Negati ve Not Available [facility] ([facility]) [address] [place], [address], 10/06/2024 07:13:11 10/03/19 25 10/05/2024 TOXAS SURE FLEX 24, UR dextromethor escobedo Not Detect ed Not Available [facility] ([facility]) [address] [facility], [place], [address], 10/06/2024 07:13:11 10/03/1910/05/2024 TOXAS SURE FLEX 24, UR dextrorphan/ levorphanol Not Detect ed Expec darlin metab olism of Dextr ometh orpha n and Dextr orpha n/Lev orpha nol: Paren t Drug Detec darlin Metab olite s ----- ----- - ----- ----- ----- ----- Dextr ometh orpha n: Dextr orpha n Dextr orpha n/Lev orpha nol: None Dextr ophan canno t be disti nguis hed from Levor phano l by the metho d used for abdulaziz sis. Not Available [facility] ([facility]) [address] [facility], [place], [address], 10/06/2024 07:13:11 10/03/19 25 10/05/2024 JANE IVONNE DS, MS, UR RFX cannabinoids +POSIT SARAH+ Not Available [facility] ([facility]) [address] [facility], [place], [address], 10/06/2024 07:13:12 10/03/1910/05/2024 LYNDSEY AGUILAR DS, MS, UR RFX carboxy-THC 151 NG/mg _crea t This test is not inten ded to disti nguis h betwe en the metab olite s of delta -9-te trahy droca nnabi nol, the predo minan t form of THC in most herba l or marij uana- based produ cts, and delta -8-te trahy droca nnabi nol, a psych oacti ve compo und gener ally synth esize d from other canna binoi ds. Not Available [facility] ([facility]) [address] [facility], [place], [address], 10/06/2024 07:13:12 10/03/19 25 10/05/2024 ACETA SUSHILA HEN, MS, UR RFX analgesics/n saids +POSIT SARAH+ Not Available [facility] ([facility]) [address] [facility], [place], [address], 10/06/2024 07:13:12 10/03/19 25 10/05/2024 ACETA NOHEMIOP HEN, MS, UR RFX acetaminophe n PRESEN T Not Available [facility] ([facility]) [address] [facility], [place], [address], 10/06/2024 07:13:12 10/16/19 25 10/11/2024 XR, lumba r spine , 2 view No observ ation record ed. [facility] ([facility]) [address] [place], [address], 10/24/2024 12:23:11 10/16/19 25 10/11/2024 XR, lumba r spine [facility] [address] [place] [address] Phone: Fax: Name: JOCELYN ARELLANO Exam Date: 025 : 1954 Age 69 years Gender : F Access ion: [id number] Physic christopher: IRVIN SAAB Facili ty: [facility] Facili ty HSV: Outpat ient Exam: LUMBAR [...] Electr onical ly signed by: DEV SANCHEZ 025 Thank you for referr ing JOCELYN ARELLANO to [facility]. Legall y authen ticate d by LINO MÉNDEZ MD 0 10-11 12:32: 10 CC'ed Logic: Orderi ng Provid er: KAISER Saleem CC Provid er: JOSEPHINE Bain Attend ing Provid er: KAISER Saleem Referr ing Provid er: KAISER Saleem Admitt ing Provid er: KAISER Saleem [email or web address] [facility] (Radiology) [address] , [place], [address], 10/24/2024 11:33:24 Result Notes None recorded. Problems Name Problem SNOMED Code Status Onset Date Resolution Date Notes Provider Name and Address Organization Details Recorded Time Inflammation of sacroiliac joint 36882195 Active [address], [address], [place] - [facility] - [place] & [place] 5 10:12:37 Lumbar spondylosis 423813049 Active 2024 JOE SAAB [address], [address], [place] [facility] [place] & [place] 5 10:12:40 Post-laminecto my syndrome 61263107 Active 2024 JOE SAAB [address], [address], [place] [facility] [place] & [place] 5 16:25:09 Chronic kidney disease 501146825 Active 2024 JOE SAAB [address], [address], [place] [facility] [place] & [place] 5 16:25:10 Chronic low back pain 680446749 Active [address]AAB [address], [place], [address], [place] [facility] [place] & [place] 5 16:25:11 Nicotine dependence 62325662 Active 2024 JOE SAAB [address], [place], [address], [place] [facility] [place] & [place] 5 16:35:55 Stenosis of spinal canal due to intervertebral disc 794198538 Active 2024 JOE SAAB [address], [place], [address], [place] [facility] & [place] 5 15:05:22 Closed fracture lumbar vertebra, wedge 540010001 Active 2024 JOE SAAB [address], [place], [address], [place] [facility] & [place] 5 15:06:57 Problem Notes None recorded. Procedures Surgical History Date Name Laterality Status Provider Name and Address Organization Details Recorded Time 3 Other completed [facility] [place] [facility] [place] 10/16/2024 14:27:14 0 Back Surgery completed [facility] [place] [facility] - [place] & [place] 10/16/2024 14:27:14 4 Other completed [facility] [place] [facility] & [place] 10/16/2024 14:27:14 Imaging Results Imaging Date Name Status LastModified by Organiz ation Details LastModified Time 10/11/2024 XR, lumbar spine, 2 view completed [facility] (Scheduling) [address] [place], [address], 10/24/2024 12:23:11 10/11/2024 XR, lumbar spine completed [address] (Radiology) [address] [place], [address], 10/24/2024 11:33:24 Procedure Notes None recorded. Medical Equipment None [...] Address Organization Details Last Updated DateTime 5 11890.3 2 g 97.5 [degF] 100 % 100 % 56 /min 183 mm[Hg] 90 mm[Hg] Teresa MONTEJO [facility] & [place] 5 09:39:22 Date Recorded Body weight Body temperature Oxygen saturation Oxygen saturation in Arterial blood by Pulse oximetry Heart rate Systolic blood pressure Diastolic blood pressure Provider Name and Address Organization Details Last Updated DateTime 5 88446.4 5 g 97.6 [degF] 99 % 99 % 53 /min 156 mm[Hg] 82 mm[Hg] Teresa MONTEJO [facility] & [place] 5 14:26:37 Social History Question Answer Notes LastModified by Organizat ion Details LastModified Time Tobacco Smoking Status Current Every Day Smoker Teresa Rm [facility] & [place] 10/16/2024 14:27:11 Do You Have An Advance Directive? No [email or web address] Information not available 10/16/2024 What Is Your Level Of Alcohol Consumption? None Information not available 10/16/2024 Are You Blind Or Do You Have Difficulty Seeing? No [email or web address] Information not available 10/16/2024 What Was The Date Of Your Most Recent Tobacco Screening? 10/13/2024 [email or web address] Information not available 10/16/2024 Are You Passively Exposed To Smoke? Yes Information no t available 10/16/2024 Do You Or Have You Ever Used Smokeless Tobacco? Never Used Smokeless Tobacco Information not available 10/16/2024 How Much Tobacco Do You Smoke? 1 PPD [email or web address] Information not available 10/16/2024 Do You Feel Stressed (tense, Restless, Nervous, Or Anxious, Or Unable To Sleep At Night)? [id number] [email or web address] Information not available 10/16/2024 Do You Use Any Illicit Or Recreational Drugs? Yes [email or web address] Information not available 10/16/2024 How Many Years Have You Smoked Tobacco? 50 [email or web address] Information not available 10/16/2024 Sex: Female Functional Status Question Answer Note LastModified by Organizat ion Details LastModified Time What is your exercise level? Occasional [email or web address] Information not available 10/16/2024 Mental Status None recorded. Family History Nothing Reported. Medical History Condition Response COPD Y Lung Disease Y Headaches Y Kidney or Bladder Problems Y Thyroid Problems Y Back Problems Y Reflux/GERD Y Hypertension Y Gynecological HistoryNo gynecological history recorded. Obstetrics History GPAL:G 0 P 0 0 0 0 Past Encounters Encounter ID Performer Location Encounter Start Date Encounter Closed Date Diagnosis/Indication Diagnosis SNOMED-CT Code Diagnosis ICD10 Code Diagnosis Note [id number] JOE SAAB DO [facility] [address] [place] [address] 10/02/2024 09:22:55 10/02/2024 10:32:07 Inflammation of sacroiliac joint 07614629 M46.1 Lumbar spondylosis 91925 0009 M47.896 Post-latasha ectomy syndrome 08973505 M96.1 Chronic ki dney disease 302958197 N18.9 Chronic low back pain 27 2039335 M54.50 G89.29 Nicotine dependence 5629 4008 F17.991 [id number] JOE SAAB DO [facility]- [address] [place] [address] 10/16/2024 13:51:53 10/16/2024 14:53:54 Inflammation of sacroiliac joint 29540709 M46.1 Lumbar spondylosis 48205 0009 M47.896 Post-latasha ectomy syndrome 11217147 M96.1 Chronic ki dney disease 213981354 N18.9 Chronic low back pain 27 5911216 M54.50 G89.29 Nicotine dependence 5629 4008 F17.200 Stenosis o f spinal canal due to intervertebral disc 468586035 M99.53 Closed fra cture lumbar vertebra, wedge 197480208 S32.020D Health Concerns Section Related Observation LastModified by Organization Detai ls LastModified Time None Recorded Concern Status LastModified by Organization Details LastModified Time None Recorded Advance Directives Directive N: Payers Encounter Date Sequence Insurance Name Policy Number Policy Howard Covered Member ID Howard Member ID Guarantor Name 10/02/2024 1 [place]MED[place]ACEMENT HMO[place] [id number] Jocelyn Arellano [id number] Jocelyn Amber 10/16/2024 1 [place] [id number] Jocelyn Arellano [id number] Jocelyn Amber Notes Date Note Type Note Provider Name and Address Organization Details Recorded Time 5 text/html Patient presented with chronic low back pain for several years and with a previous history of lumbar spinal fusion. She has been treated previously by the pain treatment Center in [facility]. She asked to leave and be seen by a different interventional pain physician. She supposedly has a medical marijuana card. She has not received injections and was being treated with medication management Referral: Alida MATATZ-LFIB-ohhrbkr use disorder, CAD, hypothyroidism, HTN, CKD stage [...] {{employed unemployed ret ired* disability}} JOE SAAB, DO [facility], [place], [address], [place] - [facility] - [place] & [place] 10/02/2024 16:36:20 text/html Patient presented with chronic low back pain for several years and with a previous history of lumbar spinal fusion. She has been treated previously by the pain treatment Center in [facility]. She asked to leave and be seen by a different interventional pain physician. She did not receive injections and was being treated with medication management Referral: Alida MATANR-DZGM-xfbocgd use disorder, CAD, hypothyroidism, HTN, CKD stage [...] Status: {{employed unemployed ret ired* disability}} JOE ASAB, DO [address] [place] [address], [place], [address], [facility] & [place] 10/16/2024 15:57:07 OBGyn Episode No OBEpisode recorded.
--- OUTSIDE RECORDS SUMMARY | 2024-10-25 19:33 | XMS_ITS ---
Laboratory report Created on: September 12, 2024 TAHIR ARELLANO : 1955 Sex: Female Author Name JONATHON BURTON Organization Unknown PROBLEMS Problems List Code Description R30.0 RESULTS Laboratory Orders Date Order Code Test 2024-09-07 [id number] URINE CULTURE, R OUTINE Laboratory Results Date LOINC Test Value Unit Reference Range Interpre tation 2024-09-07 630-4 URINE CULTURE, ROUTINE FINAL A 2024-09-07 630-4 RESULT 1 ESCHCO A 2024-09-07 76401-3 ANTIMICROBIAL SUSCEPTIBILITY [facility]
== END 2024-10-19 23:59 | disposition home or self-care (01) ==
LOC: LAB 11:25
PROVIDERS: PCP Physician Assistant; Visit Provider Nurse Practitioner Family
DX: E03.9 Hypothyroidism, unspecified (principal); E78.2 Mixed hyperlipidemia; E66.3 Overweight; I10 Essential (primary) hypertension; R40.0 Somnolence
CPT/HCPCS: 36415; 80048; 80061; 80076; 84439; 84443; 85025

== ENCOUNTER 2024-10-23 09:20 | Outpatient (CLI) | payer MEDICARE, SELFPAY ==
--- NOTE | 2024-10-23 09:22 | XR_ITS ---
FINAL REPORT TECHNIQUE: Bone densitometry calculations of the lumbar spine and left hip were obtained. CLINICAL HISTORY: SCREENING COMPARISON: None FINDINGS: Using L1-4, the bone mineral density of the right forearm is 0.570 g/cm2, corresponding to T-score of -2.1. Using the left hip, the bone mineral density of the femoral neck is 0.625 g/cm2, corresponding to a T-score of -2.0. Using the right hip, the bone mineral density of the femoral neck is 0.553 g/cm?, corresponding to a T-score of -2.7. NOTE: T-score: Standard deviation compared with peak bone mass of young adult mean. *Following the recommendations of the International Society of Bone densitometry, classification of hip BMD is based on the lower of two T-scores; total hip or femoral neck. IMPRESSION: Diminished bone mineral density of the right hip consistent with osteoporosis. Diminished bone mineral density of the left hip and right forearm consistent with osteopenia. Reviewed, Interpreted and Dictated by Robert Bedolla MD Transcribed by Ebonie Walker Authenticated and [facility]
--- OUTSIDE RECORDS SUMMARY | 2024-10-25 20:51 | XMS_ITS | Continuity of Care Document ---
Author Name [facility] Organization [facility] Care Team Providers Care Doctor Of Pharmacy Name Role Phone [facility] Unavailable Unavailable Immunizations Combined list of available immunizations from the Department of Defense and Veterans Affairs facilities. Immunization Series Date Given Administered By Site Reaction Lot Number CVX Code Drug Business Development Representative Status Comments Source COVID-19 (PFIZER), MRNA, LNP-S, PF, 30 MCG/0.3 ML DOSE 2 2020 208 complet ed PFR; [id number]; [place] [facility] COVID-19 (PFIZER), MRNA, LNP-S, PF, 30 MCG/0.3 ML DOSE 1 2020 208 complet ed PFR; [id number]; 1 [place]
== END 2024-10-23 23:59 | disposition home or self-care (01) ==
LOC: RAD 09:20
PROVIDERS: PCP Physician Assistant; Visit Provider Physician Assistant
DX: Z13.820 Encounter for screening for osteoporosis (principal); M85.89 Other specified disorders of bone density and structure, multiple sites
CPT/HCPCS: 77080

== ENCOUNTER 2024-12-19 12:46 | Outpatient (CLI) | payer MEDICARE, SELFPAY ==
--- OUTSIDE RECORDS SUMMARY | 2020-12-03 07:45 | XMS_ITS | Continuity of Care Document ---
Author Name [facility] Organization [facility] Care Team Providers Care Bag Tester Name Role Phone [facility] Unavailable Unavailable Immunizations Combined list of available immunizations from the Department of Defense and Veterans Affairs facilities. 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
--- OUTSIDE RECORDS SUMMARY | 2024-12-13 15:19 | XMS_ITS | Continuity of Care Document ---
Author Organization [facility] Phone Care Team Providers Care Claims Configuration Analyst Name Role Phone BERTA SAAB Unavailable BERTA SAAB Admitting BERTA SAAB Primary Attending Taya BURTON Primary Care ALLERGIES AND ADVERSE REACTIONS ALLERGIES AND ADVERSE REACTIONS Code System Allergy Substance Adverse Reaction Date Reaction (Severity) Comment Status Reported By Updated By No Known Allergies [id number] on December 11, 2019 10:33:14 AM [facility] FAMILY HISTORY RELATION: Father Status: Cause of : Coronary arteriosclerosis Age at : Unknown SNOMED-CT Diagnosis Age At Onset Information not available RELATION: Mother Status: Cause of : Malignant neoplasm of uterus Age at : Unknown SNOMED-CT Diagnosis Age At Onset Information not available RELATION: Mother Status: Cause of : Drug addict Age at : Unknown SNOMED-CT Diagnosis Age At Onset Information not available RELATION: Mother Status: Cause of : Accidental poisoning by carbon monoxide Age at : Unknown SNOMED-CT Diagnosis Age At Onset Information not available RELATION: Brother Status: LIVING SNOMED-CT Diagnosis Age At Onset [id number] Alcoholic family member MEDICATIONS HOME MEDICATIONS Status RXNORM [facility] Medication Dose Route Frequency Dates Comments Reported By Updated By Active 163685 70880 39618 1 atorvastatin calcium (LIPITOR) 40.0 MG ORAL DAILY Last Dose: High cholestero l; home med [id number] on November 08, 2024 3:26:41 PM [facility] Active 836345 20615 27331 0 levothyroxin e (SYNTHROID) 100.0 MCG ORAL DAILY@7 Last Dose: for TSH 24.95 started by Hugh Mejia APRN during hospitaliz ation [id number] on November 08, 2024 3:26:41 PM [facility] Active 448701 24437 43787 1 metoprolol tartrate(LOP RESSOR) 100.0 MG ORAL DAILY Last Dose: home med [id number] on November 08, 2024 3:26:42 PM [facility] Active 410174 95305 53408 5 OLANZapine (ZYPREXA ZYDIS) 5.0 MG ORAL BEDTIME Last Dose: NOT ZYDIS-plea se give tablets [id number] on November 08, 2024 3:26:42 PM [facility] Active 015272 13974 25575 5 OLANZapine (ZYPREXA ZYDIS) 2.5 MG ORAL DAILY Last Dose: 1/2 tab daily (NOT ZYDIS) please give tablets [id number] on November 08, 2024 3:26:42 PM [facility] DISCHARGE MEDICATIONS Status RXNORM NDC Medication Dose Route Frequency Dates Comments Physician Updated By No Discharge Medication Info rmation Available INPATIENT MEDICATIONS Status RXNORM NDC Medication Dose Route Frequency Rat e Quantity Dates Comments Physician Updated By No Inpatient Medication Info rmation Available SOCIAL HISTORY SOCIAL HISTORY SNOMED-CT Social History Element Description Effective Dates Offered Cessation Comment UpdatedBy [id number] Historical Tobacco smoking status Current Every Day Smoker Start: [birth year] 1962 5:00:00 AM [place] Refused [id number] on December 06, 2019 7:33:53 PM [facility] SOCIAL HISTORY - Gender Sex: Female SOCIAL HISTORY - Status : status i nformation is not available Intention in Next Year: intention information is not available SOCIAL HISTORY - Sexual Behavior Sexual Orientation Gender Identity SNOMED-CT Description SNO MED -CT Description Activity Level No of Partners Partner Type UpdatedBy Information is not available VITAL SIGNS PATIENT VITAL SIGNS This section displays the mo st recent value for each vital sign as of December 13, 2024 7:19:02 PM [facility] Loinc Code Vital Sign Activity Date Result Updated By 8302-2 Body height November 08, 2024 3:26:19 PM [facility] 157.48 cm (62.0 in) [id number] on November 08, 2024 3:26:19 PM [facility] 47615-3 Body mass index (BMI) [Ratio] November 08, 2024 3:26:19 PM [place] 27.661 kg/m2 [id number] on November 08, 2024 3:26:19 PM [facility] 3140-1 Body Surface Area Derived From Formula November 08, 2024 3:26:19 PM [facility] 1.6974 m2 [id number] on November 08, 2024 3:26:[place] [address]-1 Body weight Measured November 08 3:26:19 PM UTC 68.6 kg (151.0 lb) [id number] on November 08, 2024 3:26:19 PM [place] PEDIATRIC GROWTH CHART - VITAL SIGNS This section displays Head C ircumference Percentile, Weight for Length Percentile and BMI Percentile Loinc Code Pediatric Measure Age (Months) Result Updat ed By No Pediatric Growth Chart Pe rcentile Information Available. HEALTH CONCERNS Problems Concern Status Health Concern problem infor mation not available. Smoking Status Status Years Used Consumed packs p er day Health Concern smoking histo ry information not available. Family History Concern Status Health Concern family histor y information not available. ENCOUNTERS ENCOUNTER INFORMATION Reason for Visit [id number] T12-L2 Admission December 13, 2024 6:19:[address] [address] Discharge December 13, 2024 6:19:00 PM [place] DISC HARGED TO HOME OR SELF CARE ENCOUNTER DIAGNOSES Notes information is not tank ilable. Code System Diagnosis Onset Date Diagnosis information is not available. ABSTRACT DIAGNOSES Code System Diagnosis Updated By Abstract Diagnosis informati on is not available. CARE TEAM Care Claims Configuration Analyst Role BERTA SAAB Referring BERTA SAAB Admitting BERTA SAAB Primary Attending Taya BURTON Primary Care CARE TEAM CARE chief development officer Role on Team Status Start Date End Date Update d By JOSEPHINE MATA PCP normal October 31 2:18:51 PM [facility] December 13, 2024 6:19:00 PM [place] [id number] on October 31, 2024 2:18:51 PM [facility] MD Referring normal October 31, 2024 2:18:51 PM [facility] December 13, 2024 6:19:00 PM [place] [id number] on October 31, 2024 2:18:51 PM [facility] MD Attending normal October 31, 2024 2:18:51 PM [facility] December 13, 2024 6:19:00 PM [place] [id number] on October 31, 2024 2:18:51 PM [facility] MD Admitting normal October 31, 2024 2:18:51 PM [facility] December 13, 2024 6:19:00 PM [place] [id number] on October 31, 2024 2:18:51 PM [facility]
--- OUTSIDE RECORDS SUMMARY | 2024-12-19 12:48 | XMS_ITS | Data Portability ---
Author Organization [place] [facility] VALENTIN Dumont ADMIN Address [address] [place] [id number] Care Team Providers Care Organic Extractions Technician Name Role Phone [facility] Referring Provider Assessment Encounter Date Assessment Date [...] and reviewed: reviewed and Appropriate Maira AL: [id number] E. As documented in the signed controlled [...] of developing and presence of these conditions). [email or web address] Not available 10/02/2024 16:32:06 10/16/2024 10/16/2024 Images reviewed previously lumbarMRI 2009: moderate to severe DDD, multilevel disc space narrowing, multilevel facet hypertrophy Images reviewed today [id number]/27/ 2025: Severe DDD, previous hardware appreciated, multilevel [...] and reviewed: reviewed and Appropriate Maira AL: [id number] E. As documented in the signed controlled [...] of developing and presence of these conditions). [email or web address] Not available 10/16/2024 15:05:13 Plan of Treatment Reminders Order Date Submit Date Provider Last Modified By Organization Details Last Modified Time Details Appointments OV EST 15 2024 11:00A M JOE SAAB, DO Not available Not available Not available Lab None recorded . Referral None recorded . Procedures medial branch block, lumbar (PROC) - 00424, 44058 bilatera l t12- L1 MBB#1 2024 025 Joe Saab DO, [address] [place] [address], [address], [address], 10/31/2024 10:29:37 Surgeries None recorded . Imaging MRI, lumbar spine, w/o contrast - please evaluate for central and neural foramina l stenosis , MODIC changes, spondylo thesis, b/l pars defect and angular stabilit y, DDD, lumbosac ral transiti onal anatomy 2024 025 [facility], Critical access hospital3 [facility], [place], [address], 10/31/2024 11:55:40 XR, lumbar spine, 2 view - please evaluate for spondylo thesis, b/l pars defect and angular stabilit y 2024 025 [email or web address] [facility] ([facility]), [address] , [place], [address], 10/15/2024 14:33:01 Medication Orders None recorded . [...] luisito consu ltati on, pleas e call [phone]. ===== ===== ===== ===== ===== ===== ===== ===== ===== ===== ===== ===== ===== === Not Available [facility] ([facility]) [address] [place], [address], 10/06/2024 07:13:11 10/03/19 25 10/05/2024 TOXAS SURE FLEX 24, UR pdf . Not Available [facility] ([facility]) [address] [place], [address], 10/06/2024 07:13:11 10/03/19 25 10/05/2024 TOXAS SURE FLEX 24, UR creatinine 47 mg/dL REFER ENCE RANGE : Ref Range >=20 Not Available [facility] ([facility]) [address] [place], [address], 10/06/2024 07:13:11 10/03/19 25 10/05/2024 TOXAS SURE FLEX 24, UR amphetamines ia Negati ve NG/mL cutoff :300 Not Available [facility] ([facility]) [address] [place], [address], 10/06/2024 07:13:11 10/03/19 25 10/05/2024 TOXAS SURE FLEX 24, UR benzodiazepi emi Negati ve Not Available [facility] ([facility]) [address] [place], [address], 10/06/2024 07:13:11 10/03/19 25 10/05/2024 TOXAS SURE FLEX 24, UR diazepam Not Detect ed NG/mg _crea t Not Available [facility] ([facility]) [address] [place], [address], 10/06/2024 07:13:11 10/03/19 25 10/05/2024 TOXAS SURE FLEX 24, UR desmethyldia zepam Not Detect ed NG/mg _crea t Not Available [facility] ([facility]) [address] [place], [address], 10/06/2024 07:13:11 10/03/19 25 10/05/2024 TOXAS SURE FLEX 24, UR oxazepam Not Detect ed NG/mg _crea t Not Available [facility] ([facility]) [address] [place], [address], 10/06/2024 07:13:11 10/03/19 25 10/05/2024 TOXAS SURE [...] marely Oxaze marely: None Not Available [facility] ([facility]) [address] [place], [address], 10/06/2024 07:13:11 10/03/19 25 10/05/2024 TOXAS SURE FLEX 24, UR alprazolam Not Detect ed NG/mg _crea t Not Available [facility] ([facility]) [address] [place], [address], 10/06/2024 07:13:11 10/03/19 25 10/05/2024 TOXAS SURE FLEX 24, UR alpha-hydrox yalprazolam Not Detect ed NG/mg _crea t Not Available [facility] ([facility]) [address] [place], [address], 10/06/2024 07:13:11 10/03/19 25 10/05/2024 TOXAS SURE FLEX 24, UR desalkylflur azepam Not Detect ed NG/mg _crea t Not Available [facility] ([facility]) [address] [place], [address], 10/06/2024 07:13:11 10/03/19 25 10/05/2024 TOXAS SURE FLEX 24, UR lorazepam Not Detect ed NG/mg _crea t Not Available [facility] ([facility]) [address] [place], [address], 10/06/2024 07:13:11 10/03/19 25 10/05/2024 TOXAS SURE FLEX 24, UR alpha-hydrox ytriazolam Not Detect ed NG/mg _crea t Not Available [facility] ([facility]) [address] [place], [address], 10/06/2024 07:13:11 10/03/19 25 10/05/2024 TOXAS SURE FLEX 24, UR clonazepam Not Detect ed NG/mg _crea t Not Available [facility] ([facility]) [address] [place], [address], 10/06/2024 07:13:11 10/03/19 25 10/05/2024 TOXAS SURE FLEX 24, UR 7-aminoclona zepam Not Detect ed NG/mg _crea t Not Available [facility] ([facility]) [address] [place], [address], 10/06/2024 07:13:11 10/03/19 25 10/05/2024 TOXAS SURE FLEX 24, UR midazolam Not Detect ed NG/mg _crea t Not Available [facility] ([facility]) [address] [place], [address], 10/06/2024 07:13:11 10/03/19 25 10/05/2024 TOXAS SURE FLEX 24, UR alpha-hydrox ymidazolam Not Detect ed NG/mg _crea t Not Available [facility] ([facility]) [address] [place], [address], 10/06/2024 07:13:11 10/03/19 25 10/05/2024 TOXAS SURE FLEX 24, UR flunitrazepa m Not Detect ed NG/mg _crea t Not Available [facility] ([facility]) [address] [place], [address], 10/06/2024 07:13:11 10/03/19 25 10/05/2024 TOXAS SURE FLEX 24, UR desmethylflu nitrazepam Not Detect ed NG/mg _crea t Not Available [facility] ([facility]) [address] [place], [address], 10/06/2024 07:13:11 10/03/19 25 10/05/2024 TOXAS SURE FLEX 24, UR cocaine metabolite ia Negati ve NG/mL cutoff :150 Not Available [facility] ([facility]) [address] [place], [address], 10/06/2024 07:13:11 10/03/19 25 10/05/2024 TOXAS SURE FLEX 24, UR ethyl alcohol enzymatic Negati ve g/dL cutoff :0.020 Not Available [facility] ([facility]) [address] [place], [address], 10/06/2024 07:13:11 10/03/19 25 10/05/2024 TOXAS SURE FLEX 24, UR ethanol biomarkers ia Negati ve NG/mL cutoff :500 Not Available [facility] ([facility]) [address] [place], [address], 10/06/2024 07:13:11 10/03/19 25 10/05/2024 TOXAS SURE FLEX 24, UR cannabinoids ia COMMEN T NG/mL cutoff :20 Furth er testi ng indic ated Not Available [facility] ([facility]) [address] [place], [address], 10/06/2024 07:13:11 10/03/19 25 10/05/2024 TOXAS SURE FLEX 24, UR 6-acetylmorp ezequiel ia Negati ve NG/mL cutoff :10 Not Available [facility] ([facility]) [address] [place], [address], 10/06/2024 07:13:11 10/03/19 25 10/05/2024 TOXAS SURE FLEX 24, UR opiate class ia Negati ve NG/mL cutoff :100 Not Available [facility] ([facility]) [address] [place], [address], 10/06/2024 07:13:11 10/03/19 25 10/05/2024 TOXAS SURE FLEX 24, UR oxycodone class ia Negati ve NG/mL cutoff :100 Not Available [facility] ([facility]) [address] [place], [address], 10/06/2024 07:13:11 10/03/19 25 10/05/2024 TOXAS SURE FLEX 24, UR methadone ia Negati ve NG/mL cutoff :100 Not Available [facility] ([facility]) [address] [place], [address], 10/06/2024 07:13:11 10/03/19 25 10/05/2024 TOXAS SURE FLEX 24, UR methadone mtb ia Negati ve NG/mL cutoff :100 Not Available [facility] ([facility]) [address] [place], [address], 10/06/2024 07:13:11 10/03/19 25 10/05/2024 TOXAS SURE FLEX 24, UR buprenorphin e Negati ve Not Available [facility] ([facility]) [address] [place], [address], 10/06/2024 07:13:11 10/03/19 25 10/05/2024 TOXAS SURE FLEX 24, UR buprenorphin e Not Detect ed NG/mg _crea t Not Available [facility] ([facility]) [address] [place], [address], 10/06/2024 07:13:11 10/03/19 25 10/05/2024 TOXAS SURE FLEX 24, UR norbuprenorp ezequiel Not Detect ed NG/mg _crea t Not Available [facility] ([facility]) [address] [place], [address], 10/06/2024 07:13:11 10/03/19 25 10/05/2024 TOXAS SURE FLEX 24, UR fentanyl / analogues Negati ve Not Available [facility] ([facility]) [address] [place], [address], 10/06/2024 07:13:11 10/03/19 25 10/05/2024 TOXAS SURE FLEX 24, UR fentanyl Not Detect ed NG/mg _crea t Not Available [facility] ([facility]) [address] [place], [address], 10/06/2024 07:13:11 10/03/19 25 10/05/2024 TOXAS SURE FLEX 24, UR norfentanyl Not Detect ed NG/mg _crea t Not Available [facility] ([facility]) [address] [place], [address], 10/06/2024 07:13:11 10/03/19 25 10/05/2024 TOXAS SURE FLEX 24, UR tapentadol ia Negati ve NG/mL cutoff :200 Not Available [facility] ([facility]) [address] [place], [address], 10/06/2024 07:13:11 10/03/19 25 10/05/2024 TOXAS SURE FLEX 24, UR meperidine ia Negati ve NG/mL cutoff :200 Not Available [facility] ([facility]) [address] [place], [address], 10/06/2024 07:13:11 10/03/19 25 10/05/2024 TOXAS SURE FLEX 24, UR propoxyphene ia Negati ve NG/mL cutoff :300 Not Available [facility] ([facility]) [address] [place], [address], 10/06/2024 07:13:11 10/03/19 25 10/05/2024 TOXAS SURE FLEX 24, UR tramadol ia Negati ve NG/mL cutoff :200 Not Available [facility] ([facility]) [address] [place], [address], 10/06/2024 07:13:11 10/03/19 25 10/05/2024 TOXAS SURE FLEX 24, UR barbiturates ia Negati ve NG/mL cutoff :200 Not Available [facility] ([facility]) [address] [place], [address], 10/06/2024 07:13:11 10/03/19 25 10/05/2024 TOXAS SURE FLEX 24, UR sympathomime tics Negati ve Not Available [facility] ([facility]) [address] [place], [address], 10/06/2024 07:13:11 10/03/19 25 10/05/2024 TOXAS SURE FLEX 24, UR atomoxetine Not Detect ed Not Available [facility] ([facility]) [address] [place], [address], 10/06/2024 07:13:11 10/03/19 25 10/05/2024 TOXAS SURE FLEX 24, UR diethylpropi on Not Detect ed Not Available [facility] ([facility]) [address] [place], [address], 10/06/2024 07:13:11 10/03/19 25 10/05/2024 TOXAS SURE FLEX 24, UR mdea Not Detect ed Not Available [facility] ([facility]) [address] [place], [address], 10/06/2024 07:13:11 10/03/19 25 10/05/2024 TOXAS SURE FLEX 24, UR ephedrine/ps eudoephedrin e Not Detect ed Not Available [facility] ([facility]) [address] [place], [address], 10/06/2024 07:13:11 10/03/19 25 10/05/2024 TOXAS SURE FLEX 24, UR methylphenid ate Not Detect ed Not Available [facility] ([facility]) [address] [place], [address], 10/06/2024 07:13:11 10/03/19 25 10/05/2024 TOXAS SURE FLEX 24, UR ritalinic acid Not Detect ed Not Available [facility] ([facility]) [address] [place], [address], 10/06/2024 07:13:11 10/03/19 25 10/05/2024 TOXAS SURE FLEX 24, UR phenmetrazin e Not Detect ed Not Available [facility] ([facility]) [address] [place], [address], 10/06/2024 07:13:11 10/03/19 25 10/05/2024 TOXAS SURE FLEX 24, UR phentermine Not Detect ed Not Available [facility] ([facility]) [address] [place], [address], 10/06/2024 07:13:11 10/03/19 25 10/05/2024 TOXAS SURE FLEX 24, UR phenylpropan olamine Not Detect ed Not Available [facility] ([facility]) [address] [place], [address], 10/06/2024 07:13:11 10/03/19 25 10/05/2024 TOXAS SURE FLEX 24, UR methcathinon e Not Detect ed Not Available [facility] ([facility]) [address] [place], [address], 10/06/2024 07:13:11 10/03/19 25 10/05/2024 TOXAS SURE FLEX 24, UR other hallucinogen s Negati ve Not Available [facility] ([facility]) [address] [place], [address], 10/06/2024 07:13:11 10/03/19 25 10/05/2024 TOXAS SURE FLEX 24, UR ketamine Not Detect ed Not Available [facility] ([facility]) [address] [place], [address], 10/06/2024 07:13:11 10/03/19 25 10/05/2024 TOXAS SURE FLEX 24, UR norketamine Not Detect ed Not Available [facility] ([facility]) [address] [place], [address], 10/06/2024 07:13:11 10/03/19 25 10/05/2024 TOXAS SURE FLEX 24, UR phencyclidin e ia Negati ve NG/mL cutoff :25 Not Available [facility] ([facility]) [address] [place], [address], 10/06/2024 07:13:11 10/03/19 25 10/05/2024 TOXAS SURE FLEX 24, UR gabapentin ia Negati ve ug/mL cutoff :1.0 Not Available [facility] ([facility]) [address] [place], [address], 10/06/2024 07:13:11 10/03/19 25 10/05/2024 TOXAS SURE FLEX 24, UR carisoprodol ia Negati ve NG/mL cutoff :100 Not Available [facility] ([facility]) [address] [place], [address], 10/06/2024 07:13:11 10/03/19 25 10/05/2024 TOXAS SURE FLEX 24, UR sedative/hyp notics Negati ve Not Available [facility] ([facility]) [address] [place], [address], 10/06/2024 07:13:11 10/03/19 25 10/05/2024 TOXAS SURE FLEX 24, UR zolpidem Not Detect ed Not Available [facility] ([facility]) [address] [place], [address], 10/06/2024 07:13:11 10/03/19 25 10/05/2024 TOXAS SURE FLEX 24, UR zolpidem acid Not Detect ed Not Available [facility] ([facility]) [address] [place], [address], 10/06/2024 07:13:11 10/03/19 25 10/05/2024 TOXAS SURE FLEX 24, UR zopiclone/es zopiclone Not Detect ed Not Available [facility] ([facility]) [address] [facility], [place], [address], 10/06/2024 07:13:11 10/03/19 25 10/05/2024 TOXAS SURE FLEX 24, UR amino chloropyridi ne Not Detect ed Not Available [facility] ([facility]) [address] [facility], [place], [address], 10/06/2024 07:13:11 10/03/19 25 10/05/2024 TOXAS SURE FLEX 24, UR zaleplon Not Detect ed Expec darlin metab olism of Sedat [place]/ Hypno tics: Paren t Drug Detec darlin Metab olite s ----- ----- - ----- ----- ----- ----- Zolpi dem: Zolpi dem Acid Zopic lone/ Eszop iclon e: Amino Chlor opyri dine Zalep jojo: None Not Available [facility] ([facility]) [address] [facility], [place], [address], 10/06/2024 07:13:11 10/03/19 25 10/05/2024 TOXAS SURE FLEX 24, UR acetaminophe n ia COMMEN T ug/mL cutoff :5.0 Furth er testi ng indic ated Not Available [facility] ([facility]) [address] [facility], [place], [address], 10/06/2024 07:13:11 10/03/19 25 10/05/2024 TOXAS SURE FLEX 24, UR miscellaneou s Negati ve Not Available [facility] ([facility]) [address] [place], [address], 10/06/2024 07:13:11 10/03/19 25 10/05/2024 TOXAS SURE FLEX 24, UR dextromethor escobedo Not Detect ed Not Available [facility] ([facility]) [address] [facility], [place], [address], 10/06/2024 07:13:11 10/03/1910/05/2024 TOXAS SURE FLEX 24, [...] used for abdulaziz sis. Not Available [facility] ([facility]) [address] [facility], [place], [address], 10/06/2024 07:13:11 10/03/19 25 10/05/2024 JANE IVONNE DS, MS, UR RFX cannabinoids +POSIT SARAH+ Not Available [facility] ([facility]) [address] [facility], [place], [address], 10/06/2024 07:13:12 10/03/1910/05/2024 LYNDSEY AGUILAR DS, MS, [...] other canna binoi ds. Not Available [facility] ([facility]) [address] [facility], [place], [address], 10/06/2024 07:13:12 10/03/19 25 10/05/2024 ACETA SUSHILA HEN, MS, UR RFX analgesics/n saids +POSIT SARAH+ Not Available [facility] ([facility]) [address] [facility], [place], [address], 10/06/2024 07:13:12 10/03/19 25 10/05/2024 ACETA NOHEMIOP HEN, MS, UR RFX acetaminophe n PRESEN T Not Available [facility] ([facility]) [address] [facility], [place], [address], 10/06/2024 07:13:12 10/16/19 25 10/11/2024 XR, lumba r spine , 2 view No observ ation record ed. [facility] ([facility]) [address] [place], [address], 10/24/2024 12:23:11 10/16/19 25 10/11/2024 XR, lumba r spine [facility] [address] [facility] [place] [address] Phone: Fax: Name: JOCELYN ARELLANO Exam Date: 025 : 1954 Age 69 years Gender : F Access ion: [id number] Physic christopher: IRVIN SAAB Facili ty: [facility] Facili ty HSV: Outpat ient Exam: [...] you for referr ing JOCELYN ARELLANO to [facility]. Legall y authen ticate d by LINO MÉNDEZ MD 2024-0 10-11 12:32: 10 CC'ed Logic: Orderi ng Provid er: KAISER Saleem CC Provid er: JOSEPHINE [place] Attend ing Provid er: KAISER Saleem Referr ing Provid er: KAISER Saleem Admitt ing Provid er: KAISER Saleem [email or web address] [facility] ([facility]) [address] , [place], [address], 10/24/2024 11:33:24 10/31/19 25 10/29/2024 MRI, lumba r spine , w/o contr ast No observ ation record ed. [email or web address] [address] [place] [address], [place], [address], 11/23/2024 11:22:10 Result Notes None recorded. Problems Name Problem SNOMED Code Status Onset Date Resolution Date Notes Provider Name and Address Organization Details Recorded Time Inflammation of sacroiliac joint 60187521 Active 2024 JOE SAAB [address], [address], [facility] [place] 10:12:37 Lumbar spondylosis 174283533 Active 2024 JOE SAAB [address], [address], [place] [facility] [place] 5 10:12:40 Post-laminecto my syndrome 88839468 Active 2024 JOE SAAB DO [address] [place] [address], [address], [place] [facility] [place] 5 16:25:09 Chronic kidney disease 804025520 Active 2024 JOE SAAB [address], [address], [place] [facility] [place] 5 16:25:10 Chronic low back pain 794979043 Active 2024 JOEANNELIESE SAAB [address], [address], [place] - [facility] [place] & [place] 5 16:25:11 Nicotine dependence 30168702 Active 2024 JOE SAAB [address], [address], [place] [facility] [place] 5 16:35:55 Stenosis of spinal canal due to intervertebral disc 340503163 Active 2024 JOE SAAB [address], [address], [place] [facility] [place] 5 15:05:22 Closed fracture lumbar vertebra, wedge 552625574 Active 2024 JOE KAISER [address], [address], [place] - [facility] - [place] & [place] 5 15:06:57 Problem Notes None recorded. Procedures Surgical History Date Name Laterality Status Provider Name and Address Organization Details Recorded Time 3 Other completed Teresa MONTEJO - [facility] [place] & [place] 10/16/2024 14:27:14 0 Back Surgery completed Teresa Jag GUSTABO - [facility] - [place] & [place] 10/16/2024 14:27:14 4 Other completed Teresa Jag MONTEJO - [facility] [place] 10/16/2024 14:27:14 Imaging Results None recorded. Procedure [...] Address Organization Details Last Updated DateTime 5 58429.3 2 g 97.5 [degF] 100 % 100 % 56 /min 183 mm[Hg] 90 mm[Hg] Teresa Rm [facility] & [place] 5 09:39:22 Date Recorded Body weight Body temperature Oxygen saturation Oxygen saturation in Arterial blood by Pulse oximetry Heart rate Systolic blood pressure Diastolic blood pressure Provider Name and Address Organization Details Last Updated DateTime 5 18020.4 5 g 97.6 [degF] 99 % 99 % 53 /min 156 mm[Hg] 82 mm[Hg] Teresa Rm [facility] & [place] 5 14:26:37 Social History Question Answer Notes LastModified by [employer] Details LastModified Time Tobacco Smoking Status Current Every Day Smoker Teresa cook, [facility] & [place] 10/16/2024 14:27:11 Do You Have An Advance Directive? No Information not available 10/16/2024 Are You Blind Or Do You Have Difficulty Seeing? No [email or web address] Information not available 10/16/2024 What Was The Date Of Your Most Recent Tobacco Screening? 10/13/2024 [email or web address] Information not available 10/16/2024 Are You Passively Exposed To Smoke? Yes [email or web address] Information not available 10/16/2024 How Much Tobacco Do You Smoke? 1 PPD [email or web address] Information not available 10/16/2024 How Many Years Have You Smoked Tobacco? 50 Information not available 10/16/2024 Sex: Female Functional Status Question Answer Note LastModified by [employer] Details LastModified Time Do you use any illicit or recreational drugs? Yes [email or web address] Information not available 10/16/2024 What is your level of alcohol consumption? None [email or web address] Information not available 10/16/2024 Do you or have you ever used smokeless tobacco? Never used smokeless tobacco Information not available 10/16/2024 What is your exercise level? Occasional [email or web address] Information not available 10/16/2024 Mental Status Question Answer Note LastModified by Organization D etails LastModified Time Do you feel stressed (tense, restless, nervous, or anxious, or unable to sleep at night)? [id number] Information not available 10/16/2024 Family History Nothing Reported. Medical History Condition [...] SNOMED-CT Code Diagnosis ICD10 Code Diagnosis Note [id number] JOE SAAB DO [facility]- [address] [place] [place] [address] 10/02/2024 09:22:55 10/02/2024 10:32:07 Inflammation of sacroiliac joint 77527845 M46.1 Lumbar spondylosis 625[address] 0009 M47.896 Post-latasha ectomy syndrome 27506813 M96.1 Chronic ki dney disease 818166962 N18.9 Chronic low back pain 27 0637411 M54.50 G89.29 Nicotine dependence 5629 4008 F17.790 [id number] [facility]E [facility] DO [facility] [address] [place] [address] 10/16/2024 13:51:53 10/16/2024 14:53:54 Inflammation of sacroiliac joint 34305909 M46.1 Lumbar spondylosis 36364 0009 M47.896 Post-latasha ectomy syndrome 27736990 M96.1 Chronic ki dney disease 688174331 N18.9 Chronic low back pain 27 5653098 M54.50 G89.29 Nicotine dependence 5629 4008 F17.200 Stenosis o f spinal canal due to intervertebral disc 701946985 M99.53 Closed fra cture lumbar vertebra, wedge 155852804 S32.020D Health Concerns Section Related Observation LastModified by Organization Detai ls LastModified Time None Recorded Concern Status LastModified by Organization Details LastModified Time None Recorded Advance Directives Directive N: Payers Insurance Date Sequence Insurance Name Policy Number Policy Howard Covered Member ID Howard Member ID Guarantor Name 09/10/2024 1 [place] [id number] Jocelyn Arellano [id number] Jocelyn Arellano 11/10/2024 1 [place] [id number] Jocelyn Arellano [id number] Jocelyn Arellano Notes Date Note Type Note Provider Name and Address Organization Details Recorded Time text/html Patient presented with chronic low back pain for several years and with a previous history of lumbar spinal fusion. She has been treated previously by the pain treatment Center in [facility]. She asked to leave and be seen by a different interventional pain physician. She supposedly has a medical marijuana card. She has not received injections and was being treated with medication management Referral: Alida MATATF-DOJG-fqxakxa use disorder, CAD, hypothyroidism, HTN, CKD stage 3b- prior Lumbar fusion 10/02/2024: Initial complaint: chronic lower back pain localized to the low back/lumbar spine with referred symptoms into their B/L hips and sometimes down their lower extremities.lower back pain localized to the low back/lumbar spine. Onset: >5 years Pain Location: low back Course: progressing over several years Pain Quality: sharp, dull, achy, deep, tingling, stiffness Pain Intensity: 7 / 10 Aggravating Factors: prolong standing, prolong sitting, leaning backwards, lying flat, riding in cars for long periods, twisting Alleviating Factors: opioid medicationAssociated Symptoms: tingling referring to b/l hip(s)-Patient currently denies saddle anesthesia, bowel/bladder incontinence, worsening/progressive weakness.-Functional Goals of Treatment: Reduce the pain level by 50% or more and restore function/mobility/quality of life.Current Medication:Opioids: NoneNSAIDS: NoneMuscle Relaxers:NoneOthers: tylenolPrevious Non-Interventional Treatment:- heat/ice, NSAIDS, TENS unit, lidocaine patch, chiropractor, PT, HEPInterventions/Consults :-Neurosurgery: lumbarlaminectomy, fusion-Orthopedics: none-Interventional pain: none-Podiatry: noneSmoking: yesDiabetes: noA1C: unknownAnticoagulation: NoneAntiplatelets: NoneWork Status: retired JOE SAAB, DO [address] [facility], [place], [address], [place] 10/02/2024 16:36:20 5 text/html Patient presented with chronic low back pain for several years and with a previous history of lumbar spinal fusion. She has been treated previously by the pain treatment Center in [facility]. She asked to leave and be seen by a different interventional pain physician. She did not receive injections and was being treated with medication management Referral: Alida [id number]-[id number] use disorder, CAD, hypothyroidism, HTN, CKD stage 3b- prior L3-5 Fusion Interval History 10/16/2024: Patient presents today for recurrent chronic thoracolumbar [...] or more and restore function/mobility/quality of life. 10/02/2024: Initial complaint: chronic lower back pain localized to the low back/lumbar spine with referred symptoms into their B/L hips and sometimes down their lower extremities.lower back pain localized to the low back/lumbar spine.Onset: >5 yearsPain Location: low backCourse: progressing over several yearsPain Quality: sharp, dull, achy, deep, tingling, stiffnessAggravating Factors: prolong standing, prolong sitting, leaning backwards, lying flat, riding in cars for long periods, twistingAlleviating Factors: opioid medicationAssociated Symptoms: tingling referring to b/l hip(s)Current Medication:Opioids: NoneNSAIDS: NoneMuscle Relaxers:NoneOthers: tylenolPrevious Non-Interventional Treatment:- heat/ice, NSAIDS, TENS unit, lidocaine patch, chiropractor, PT, HEPInterventions/Consults :-Neurosurgery: lumbarlaminectomy, fusion-Orthopedics: none-Interventional pain: none-Podiatry: noneSmoking: yesDiabetes: noA1C: unknownAnticoagulation: NoneAntiplatelets: NoneWork Status: retired JOE KAISER, DO [address] [facility], [place], [address], [facility] & [place] 10/16/2024 15:57:07 OBGyn Episode No OBEpisode recorded.
[2024-12-19 12:57] LABS: Microscopic, Urine URINE MICROSCOPIC (MICROSCOPIC)
[2024-12-19 13:19] LABS: Hematocrit 35.8 % (37.0-47.0); Hemoglobin 11.5 g/dL (12.2-16.2); Mean Corpuscular HGB Conc 32.1 g/dL (31.8-35.4); Mean Corpuscular Hemoglobin 31.8 pg (27.0-31.2); Mean Corpuscular Volume 98.9 fl (81-99); Nucleated Red Blood Cells # 0 10^3/uL; Nucleated Red Blood Cells % 0 %; Platelet Count 219 K/mm3 (142-424); Red Blood Count 3.62 M/mm3 (4.20-5.40); Red Cell Distribution Width 13.2 % (11.5-17.5); White Blood Count 8.5 K/mm3 (4.8-10.8)
[2024-12-19 13:21] LABS: Appearance,Urine SL CLOUDY (Clear); Bilirubin,Urine Negative (Negative); Blood, Urine TRACE-I (Negative); Color,Urine YELLOW (Yellow); Glucose,Urine (UA) Negative (Negative); Ketones,Urine Negative (Negative); Leukocyte Esterase,Urine 2+ (Negative); Nitrate,Urine Negative (Negative); PH,Urine 6.5 (5.0-8.5); Protein,Urine 3+ (Negative); Urobilinogen,Urine 0.2 EU/dl (0.2)
[2024-12-19 13:35] LABS: Creatinine,Urine Random 53 mg/dL (Not Estab.)
[2024-12-19 13:41] LABS: Squamous Epithelial Cell,Urine Occasional #/hpf (0-5)
[2024-12-19 13:54] LABS: Anion Gap 13.4 mEq/L (5-15); Blood Urea Nitrogen 22 mg/dl (7-17); Calcium 9.2 mg/dl (8.4-10.2); Carbon Dioxide 22 mmol/L (22.0-30.0); Chloride 107 mmol/L (98-107); Estimated Glomerular Filt Rate 23 ml/min (>60); GFR (African American) 28 ML/MIN (>60); Glucose 84 mg/dl (74-100); Phosphorous 3.1 mg/dl (2.5-4.5); Potassium 4.4 mmoL/L (3.5-5.1); Sodium 138 mmol/L (136-145)
[2024-12-19 16:37] LABS: Microalbumin > 1140.000 mg/L (0-16.7); Microalbumin/Creatinine Ratio 2150.9
== END 2024-12-19 23:59 | disposition home or self-care (01) ==
LOC: LAB 12:47
PROVIDERS: PCP Physician Assistant; Visit Provider Student in an Organized Health Care Education/Training Program
DX: N39.0 Urinary tract infection, site not specified (principal); R31.9 Hematuria, unspecified; R80.1 Persistent proteinuria, unspecified
CPT/HCPCS: 36415; 80069; 81001; 82043; 82570; 84156; 85027; 87086

== ENCOUNTER 2025-01-03 14:14 | Outpatient (CLI) | payer MEDICARE, SELFPAY ==
--- OUTSIDE RECORDS SUMMARY | 2020-12-03 07:45 | XMS_ITS | Continuity of Care Document ---
Author Name [facility] Organization [facility] Care Team Providers Care Handle Bender Name Role Phone [facility] Unavailable Unavailable Immunizations Combined list of available immunizations from the Department of Defense and Veterans Affairs facilities. 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
--- OUTSIDE RECORDS SUMMARY | 2024-12-21 13:00 | XMS_ITS | Encounter Summary ---
Author Organization [facility] Address [address] [place] [address] Care Team Providers Care Youth Support Worker Name Role Phone Ayse Roth APRN Primary Care Provider [phone] Reason for Referral * Consultation (Routine) - Authorized Specialty Diagnoses / Procedures Referred By Contac t Referred To Contact Diagnoses Persistent proteinuria Chronic kidney disease (CKD) stage G3b/A3, moderately decreased glomerular filtration rate (GFR) between 30-44 mL/min/1.73 square meter and albuminuria creatinine ratio greater than 300 mg/g ([facility]) Leobardo Aceves MD [address] [place] [address] Phone: tel: fax: Referral ID Status Reason Start Date Expiration Date V isits Requested Visits Authorized [id number] Authorized 12/21/2024 06/22/2026 1 1 Reason for Visit * Reason Comments Follow-up Encounter Details Date Type Department Care Team (Latest Contact Info) Description 12/21/2024 1:00 PM EDT Office Visit [facility] [address] [place] [address] Leobardo Aceves MD [address] [place] [address] Persistent proteinuria (Primary Dx); Hypertensive chronic kidney disease with stage 1 through stage 4 chronic kidney disease, or unspecified chronic kidney disease; Chronic kidney disease (CKD) stage G3b/A3, moderately decreased glomerular filtration rate (GFR) between 30-44 mL/min/1.73 square meter and albuminuria creatinine ratio greater than 300 mg/g ([facility]/HCC); Chronic kidney disease-mineral and bone disorder (CKD-MBD); [...] not included. Nephrology Outpatient Clinic Progress Note [facility] [place] Patient: Jocelyn Clark Primary Care Provider: Ayse [...] kidney disease) stage 4, GFR 15-29 ml/min ([facility]/HCC) Tobacco use disorder Chronic kidney disease-mineral and bone disorder (CKD-MBD) Mixed hyperlipidemia Coronary artery disease involving cachil dehe coronary artery of cachil dehe heart without angina pectoris Urinary tract infection with hematuria Persistent proteinuria Chronic kidney disease (CKD) stage G3b/A3, moderately decreased glomerular filtration rate (GFR) between 30-44 mL/min/1.73 square meter and albuminuria creatinine ratio greater than 300 mg/g ([facility]) Past Surgical History: Procedure Laterality Date HYSTERECTOMY N/A Hysterectomy from [employer] INCONTINENCE SURGERY N/A Laparoscopic Sling Operation For Stress Incontinence from [employer] TUBAL LIGATION N/A Tubal Ligation from [employer] Family History Problem Relation Name Age of [...] , CAUR , CALCIUMUR , PHOSUR , [id number] , [id number] , CREATUR CBC: Lab Results Component Value [...] months Leobardo Aceves MD Division of Nephrology [facility] ORDERS PLACED THIS ENCOUNTER Orders Placed This Encounter Procedures Albumin-creatinine ratio, urine, random Standing Status: Future Expected Date: 04/20/2025 Expiration Date: 06/24/2026 Release to patient in [facility]: Immediate Renal Function Panel, Plasma Standing Status: Future Expected Date: 04/20/2025 Expiration Date: 06/24/2026 Release to patient in [facility]: Immediate CBC W/O Differential Standing Status: Future Expected Date: 04/20/2025 Expiration Date: 06/24/2026 Release to patient in [facility]: Immediate Protein, Random, Urine with Creatinine Standing Status: Future Expected Date: 04/20/2025 Expiration Date: 06/24/2026 [facility] Urinalysis with reflex microscopic (Culture NOT Included) Standing Status: Future Expected Date: 04/20/2025 Expiration Date: 06/24/2026 Release to patient in [facility]: Immediate Follow Up Nephrology [facility] Standing Status: Future Expected Date: 04/22/2025 [...] albuminuria creatinine ratio greater than 300 mg/g ([facility]) Relevant Medications Calcium Carb-Cholecalciferol 600-10 MG-MCG tablet Other Relevant Orders Follow Up Nephrology documented in this encounter Plan of Treatment Upcoming Encounters Date Type Department Care Team (Late st Contact Info) Description 01/14/2025 9:20 AM EDT Office Visit [facility] [address], [address] [place] [address] Jenelle Burt MD [address] [facility] [address] [place] [address] Scheduled Orders Name Type Priority Associated Diagnoses [...] creatinine ratio greater than 300 mg/g (CMS/HCC) Chronic kidney disease-mineral and bone disorder (CKD-MBD) Mixed hyperlipidemia documented in this encounter Additional Health Concerns Assessment Noted Time A fall risk assessment has been complete d for the patient 10/08/2024 8:52 AM EDT A Body Mass Index follow-up plan has been documented for the patient 12/21/2024 1:16 PM EDT documented as of this encounter Care Teams Youth Support Worker Relationship Specialty Start Date End Date Ayse Roth APRN [address] [place] [address] PCP - General 04/05/24 documented as of this encounter
--- NOTE | 2025-01-03 14:17 | CT_ITS ---
FINAL REPORT TECHNIQUE: Thin section axial images were obtained through the lungs using a low-dose technique per lung cancer screening protocol. Reconstruction images were obtained using the axial data. Exam was performed using dose reduction technique. This study was performed with techniques to keep radiation doses as low as reasonably achievable (ALARA). Individualized dose reduction techniques using automated exposure control or adjustment of mA and/or kV according to the patient's size were employed. CLINICAL HISTORY: SCREENING, current smoker, smoker of 57 yrs, 1pk per day COMPARISON: 09/13/2023 FINDINGS: CTDLvol: 2.90 DLP: 102.64 Current smoker 57 pack year history Lungs: No acute pulmonary abnormality. Changes of emphysema are noted similar to those seen on the prior exam. There are several bilateral upper lobe subpleural nodules, all measuring less than 4 mm in size. No new nodules or masses are identified. No evidence of consolidation is noted. Lymph nodes: No thoracic lymphadenopathy. Mediastinum: Heart size is normal. Pleura/pericardium: No pleural or pericardial effusion. Other: Gallstones are noted in the gallbladder. IMPRESSION: Several bilateral upper lobe subpleural nodules are noted, stable since the prior exam. No new nodules or masses are identified. Lung RADS: 2 Recommendation: 12-month LDCT follow-up exam. Reviewed, Interpreted and Dictated by Annie Tran MD Transcribed by Ebonie Walker Authenticated and [facility]
--- OUTSIDE RECORDS SUMMARY | 2025-01-03 14:27 | XMS_ITS | Continuity of Care Document ---
Author Organization [place] - Stream[facility], [facility] Address [address] [place] [address] Care Team Providers Care Certified Teacher Assistant Name Role Phone [facility] Pain Manag ement [phone] [facility] Driver Helper JANETTE ALVAREZ Community Health Worker [phone] ALIDA GARZA Primary Care Provider RAYNA Hurley [employer] Roller Assessment No assessment recorded. Plan of Treatment Reminders Order Date Submit Date Provider Last Modified By Organization Details Last Modified Time Details Appointments FOLLOW UP 30 2024 01:00P Arcenio Garza PA-C Not available Not available Not available Lab TSH, ultra-sen sitive, serum 2024 025 [facility], [facility] [place], [address], 11/10/2024 01:07:22 urinalysi s, dipstick 2024 025 [facility], [address], [place], [address], 11/06/2024 12:18:29 culture, urine 2024 025 [facility], [address] [place], [address], 11/10/2024 01:07:23 noninvasi ve colorecta l cancer DNA + occult blood screening , , stool 2024 025 [email or web address] [place] (Cologuard Orders Only), [address], [place], [address], 11/27/2024 08:49:31 Referral None recorded. Procedures None recorded. Surgeries None recorded. Imaging None recorded. Medication Orders levothyro xine 75 mcg tablet 2024 025 [id number], [address] [place], [place], [id number], 12/25/2024 17:46:05 Macrobid 100 mg capsule 2024 025 [facility][id number], [address] [place], [place], [id number], 12/25/2024 13:11:50 Patient TargetsNo targets recorded. Patient Instructions Encounter Date Encounter Id Patient Instructions Last Modified By Organization Details Last Modified Time 11/06/2024 [id number] painful urinatio n (dysuria): care instructions [email or web address] Not available 11/06/2024 12:18:29 hypothyroidism: care instructions Not available 11/06/2024 12:47:01 Reason for Referral None Reported. Results Created Date Observation Date Name Description Value Unit Range Abnormal Flag Note LastModifiedBy Organization Detail LastModifiedTime 11/07/1911/06/2024 urina lysis , dipst ick Leukocytes Trace Not Available [address], [address], 11/06/2024 11:41:13 11/07/19 25 11/06/2024 urina lysis , dipst ick Nitrite positi ve Not Available [facility] [address] [place], [address], 11/06/2024 11:41:13 11/07/19 25 11/06/2024 urina lysis , dipst ick Urobilinogen .2 Not Available [address], [place], [address], 11/06/2024 11:41:13 11/07/19 25 11/06/2024 urina lysis , dipst ick Protein 300 Not Available [address], [place], [address], 11/06/2024 11:41:13 11/07/19 25 11/06/2024 urina lysis , dipst ick pH 5.5 Not Available [address], [place], [address], 11/06/2024 11:41:13 11/07/19 25 11/06/2024 urina lysis , dipst ick Blood Small Not Available [address], [place], [address], 11/06/2024 11:41:13 11/07/19 25 11/06/2024 urina lysis , dipst ick Specific Ettrick 1.030 Not Available [address], [place], [address], 11/06/2024 11:41:13 11/07/19 25 11/06/2024 urina lysis , dipst ick Ketone Negati ve Not Available [address], [place], [address], 11/06/2024 11:41:13 11/07/19 25 11/06/2024 urina lysis , dipst ick Bilirubin Negati ve Not Available [address], [address], 11/06/2024 11:41:13 11/07/19 25 11/06/2024 urina lysis , dipst ick Glucose Negati ve Not Available [facility] [address] [facility], [place], [address], 11/06/2024 11:41:13 11/07/19 25 11/06/2024 urina lysis , dipst ick Appearance Slight ly Cloudy Not Available [facility] [address] [place] [address], [address], 11/06/2024 11:41:13 11/07/19 25 11/06/2024 urina lysis , dipst ick Color Yellow Not Available [facility] [address] [place] [address], [address], 11/06/2024 11:41:13 10/31/19 25 10/23/2024 DEXA No observ ation record ed. [facility] Scheduling Department -New Scheduling Process [address] [facility] [address], [place], [address], 10/30/2024 10:37:10 Result Notes None recorded. Problems Name Problem SNOMED Code Status Onset Date Resolution Date Notes Provider Name and Address Organization Details Recorded Time Acute urinary tract infection 456447179 Completed 202410/09/2024 ADOLFO Gutierrez [address] [place] [address], [address], [employer] 12:01:26 Chronic pain 39242727 Active 2024 ADOLFO Gutierrez [address] [place] [address], [address], [place] [employer] 10:35:41 Acute right otitis media 277072676 Completed 202410/09/2024 ADOLFO Gutierrez [address] [place] [address], [address], [employer] 10:35:31 Essential hypertensio n 34720129 Active 2024 ADOLFO Gutierrez [address] [place] [address], [address], [employer] 14:35:45 Chronic obstructive pulmonary disease 27424859 Active 2024 ADOLFO Gutierrez [address] [place] [address], [address], [place] [employer] 10:35:53 Hyperlipide justin 09500100 Active 2024 ADOLFO Gutierrez [address] [place] [address], [address], [employer] 10:36:00 Gastroesoph ageal reflux disease 963663224 Active 2024 ADOLFO Gutierrez [address] [place] [address], [address], [employer] 10:36:21 Vitamin D deficiency 21475360 Active 2024 ADOLFO Gutierrez [address] [place] [address], [address], [employer] 10:36:42 Depressive disorder 37010777 Active 2024 ADOLFO Gutierrez [address] [place] [address], [address], [employer] 10:36:58 Impacted cerumen 10039393 Active 2024 ADOLFO Gutierrez [address] [place] [address], [address], [employer] 17:54:28 Osteoporosi s 84157713 Active 2024 ADOLFO Gutierrez [address] [place] [address], [address], [employer] 10:36:15 Acute urinary tract infection 822047389 Active 2024 ADOLFO Gutierrez [address] [place] [address], [address], [employer] 12:01:26 Hypothyroid ism 03137850 Active 2024 ADOLFO Gutierrez [address] [place] [address], [address], [employer] 12:38:58 Gastroesoph ageal reflux disease without esophagitis 529173430 Active 2024 ADOLFO Gutierrez [address] [place] [address], [address], [employer] 13:34:44 Senile osteoporosi s 65227404 Active 2024 ADOLFO Gutierrez [address] [place] [address], [address], [employer] 13:36:49 Tobacco dependence syndrome 14101907 Active 2024 ADOLFO Gutierrez [address] [place] [address], [address], [employer] 13:42:45 Problem Notes None recorded. Procedures Surgical History Date Name Laterality Status Provider Name and Address Organization Details Recorded Time 10/10/19 25 Cerumen Removal completed ADOLFO Gutierrez [address] [place] [address], [address], [employer] 10/09/2024 17:54:56 09/13/19 24 Most Recent Mammogram completed [employer] 09/21/2024 12:19:51 03/18/20 20 Date of Last Pap Smear completed [employer] 09/21/2024 12:19:37 Angioplasty completed [employer] [facility] [employer] 09/07/2024 08:57:47 Back Surgery completed [employer] 09/07/2024 08:57:47 Hysterectomy completed [employer] 09/07/2024 08:57:47 Tubal Ligation completed [employer] 09/07/2024 08:57:47 Dilation and Curettage completed [employer] 09/07/2024 08:57:47 Total Hysterectomy completed [facility] [employer], [facility] 09/07/2024 08:57:47 Stent completed [facility] [employer], [facility]. 09/07/2024 09:11:45 Imaging Results None recorded. Procedure Notes None recorded. Medical Equipment None Reported. Allergies No known drug allergies Medications Name Sig Start Date Stop Date Status Note LastModified by Organization Details LastModified Time atorvastati n 80 mg tablet Take 1 tablet every day by oral route for 90 days. 2024 active Not Available Not Available Not Avai lable clonidine HCl 0.1 mg tablet Take 1 tablet by oral route. 09/20 completed Not Available Not Available Not Available lamotrigine 200 mg tablet Take 1 tablet every day by oral route for 90 days. 2024 active Not Available Not Available Not Avai lable trazodone 50 mg tablet TAKE 1 TABLET BY MOUTH EVERY NIGHT AT BEDTIME NEEDED FOR INSOMNIA 09/07 completed Not Available Not Available Not Available atorvastati n 10 mg tablet Take 1 tablet every day by oral route at bedtime for 90 days, for cholester ol. 12/25 completed Not Available Not Available Not Available metoprolol tartrate 100 mg tablet Take 1 tablet twice a day by oral route for 90 days. 2024 active Not Available Not Available Not Avai lable valacyclovi r 1 gram tablet TAKE 1 TABLET BY MOUTH EVERY 8 HOURS FOR 14 DAYS 09/07 completed Not Available Not Available Not Available hydralazine 25 mg tablet TAKE 1 TABLET BY MOUTH TWICE DAILY 2024 active Not Available Not Available Not Avai lable clopidogrel 75 mg tablet 09/07 completed Not Available Not Available Not Available ciprofloxac in 250 mg tablet 09/07 completed Not Available Not Available Not Available sulfamethox azole 800 mg-trimetho prim 160 mg tablet TAKE 1 TABLET BY MOUTH EVERY 12 HOURS FOR 7 DAYS 12/25 completed Not Available Not Available Not Available amitriptyli ne 50 mg tablet TAKE 1 TABLET BY MOUTH DAILY 10/09 completed Not Available Not Available Not Available lamotrigine 25 mg tablet 09/20 completed Not Available Not Available Not Available levothyroxi ne 75 mcg tablet TAKE 1 TABLET BY MOUTH 30 TO 60 MINUTES BEFORE BREAKFAST DAILY active Not Available Not Available No t Available levothyroxi ne 100 mcg tablet 11/06 completed Not Available Not Available Not Available amitriptyli ne 25 mg tablet TAKE 3 TABLET BY MOUTH AT BEDTIME NEEDED FOR SLEEP 09/07 completed Not Available Not Available Not Available Fosamax 70 mg tablet Take 1 tablet every week by oral route for 90 days, for osteoporo sis. 2024 active Not Available Not Available Not Avai lable gabapentin 800 mg tablet 09/07 completed Not Available Not Available Not Available amlodipine 10 mg tablet TAKE 1 TABLET BY MOUTH DAILY 09/20 completed Not Available Not Available Not Available pantoprazol e 40 mg tablet,dipesh yed release Take 1 tablet every day by oral route for 90 days. 2024 active Not Available Not Available Not Avai lable mirtazapine 30 mg tablet 09/07 completed Not Available Not Available Not Available triamcinolo ne acetonide 0.1 % topical ointment 09/07 completed Not Available Not Available Not Available lisinopril 10 mg tablet 10/09 completed Not Available Not Available Not Available promethazin e 25 mg tablet 09/07 completed Not Available Not Available Not Available valsartan 320 mg tablet Take 1 tablet every day by oral route for 90 days. 2024 active Not Available Not Available Not Avai lable Synthroid 50 mcg tablet TAKE 1 TABLET BY MOUTH EVERY DAY 2024 active Not Available Not Available Not Avai lable gabapentin 100 mg capsule 09/07 completed Not Available Not Available Not Available oxycodone-a cetaminophe n 7.5 mg-325 mg tablet TAKE 1 TABLET BY MOUTH EVERY 6 HOURS 09/07 completed Not Available Not Available Not Available cefdinir 300 mg capsule TAKE 1 CAPSULE BY MOUTH EVERY 12 HOURS FOR 10 DAYS 09/20 completed Not Available Not Available Not Available amitriptyli ne 100 mg tablet TAKE 1 TABLET BY MOUTH DAILY 09/07 completed Not Available Not Available Not Available lamotrigine 100 mg tablet TAKE 1 TABLET BY MOUTH DAILY 09/20 completed Not Available Not Available Not Available verapamil ER 240 mg 24 hr capsule,ext ended release TAKE 1 CAPSULE BY MOUTH TWICE DAILY 2024 active Not Available Not Available Not Avai lable levothyroxi ne 112 mcg tablet TAKE 1 TABLET BY MOUTH DAILY 09/07 completed Not Available Not Available Not Available verapamil ER 120 mg 24 hr capsule,ext ended release TAKE 1 CAPSULE BY MOUTH DAILY 12/25 completed Not Available Not Available Not Available nitrofurant oin monohydrate /macrocryst als 100 mg capsule TAKE 1 CAPSULE BY MOUTH EVERY 12 HOURS FOR 7 DAYS 12/25 completed Not Available Not Available Not Available duloxetine 60 mg capsule,del ayed release Take 1 capsule every day by oral route for 90 days. 2024 active Not Available Not Available Not Avai lable hydrochloro thiazide 12.5 mg tablet 09/07 completed Not Available Not Available Not Available budesonide- formoterol HFA 80 mcg-4.5 mcg/actuati on aerosol inhaler INHALE 2 PUFFS BY MOUTH TWICE DAILY RINSE MOUTH AFTER EACH USE 12/25 completed Not Available Not Available Not Available Calcium 600 + D(3) 600 mg-10 mcg (400 unit) tablet Take 1 tablet every day by oral route for 90 days. 2024 active Not Available Not Available Not Avai lable cholecalcif daniel (vitamin D3) 1,250 mcg (50,000 unit) capsule TAKE 1C BY MOUTH ONCE WEEKLY FOR VITAMIN DEFICIENC Y 09/20 completed Not Available Not Available Not Available Vitamin D3 50 mcg (2,000 unit) tablet TAKE 1 TABLET BY MOUTH EVERY DAY 12/25 completed Not Available Not Available Not Available Breztri Aerosphere 160 mcg-9mcg-4. 8mcg/actuat ion HFA aerosol inhaler Inhale 2 puffs twice a day by inhalatio n route for 90 days. 2024 active Not Available Not Available Not Avai lable albuterol 90 mcg-budeson dillon 80 mcg/actuati on HFA aerosol inhaler Inhale by inhalatio n route. active Not Available Not Available No t Available Vitals Date Recorded Body height Body mass index (BMI) Body weight Body temperature Heart rate Oxygen saturation Oxygen saturation in Arterial blood by Pulse oximetry Systolic blood pressure Diastolic blood pressure Systolic blood pressure Diastolic blood pressure Systolic blood pressure Diastolic blood pressure Provider Name and Address Organization Details Last Updated DateTime 5 162.56 cm 25.7 kg/m2 95782.4 2 g 98.2 [degF] 56 /min 95 % 95 % 166 mm[Hg] 84 mm[Hg] 164 mm[Hg] 82 mm[Hg] 156 mm[Hg] 76 mm[Hg] [employer] 11:18:46 Social History Question Answer Notes LastModified by Organizat ion Details LastModified Time Tobacco Smoking Status Current Every Day Smoker Divine [employer] joyce, [employer]. 09/07/2024 08:57:46 Do You Have An Advance Directive? No Information not available 09/07/2024 Is Your Home Air Conditioned? Yes Information not available 09/07/2024 If You Are , What Was Your Level Of Alcohol Consumption Prior To ? None Information not available 09/07/2024 Do You Wear A Helmet When Biking? No Information not available 09/07/2024 Are You Blind Or Do You Have Difficulty Seeing? No Information not available 09/07/2024 What Is Your Level Of Caffeine Consumption? Heavy Information not available 09/07/2024 What Type Of Belt Maker Do You Use? None Information not available 09/07/2024 Have You Been To An Area Known To Be High Risk For COVID-19? No Information not available 09/07/2024 Are You Deaf Or Do You Have Serious Difficulty Hearing? No Information not available 09/07/2024 What Type Of Diet Are You Following? REGULAR Information not available 09/07/2024 Which Illicit Or Recreational Drugs Have You Used? Pot Information not available 09/07/2024 How Many Days Of Moderate To Strenuous Exercise, Like A Brisk Walk, Did You Do In The Last 7 Days? 1 Information not available 09/07/2024 Have There Been Any Changes To Your Family Or Social Situation? No Information no t available 09/07/2024 Are There Any Guns Present In Your Home? No Information not available 09/07/2024 Which Of Your Hands Is Dominant? Right Information not available 09/07/2024 What Is Your Home Situation? Other Information not available 09/07/2024 How Many Years Have You Used Illicit Or Recreational Drugs? 5 Information not available 09/07/2024 Do You Have A Medical Power Of Maintenance Welder? No Information not available 09/07/2024 What Was The Date Of Your Most Recent Tobacco Screening? 12/25/2024 Information not available 12/25/2024 Do You Have Any Pets? Yes Information not available 09/07/2024 What Is Your Relationship Status? Information not available 09/07/2024 Have You Repeated Any Grades? No Information not available 09/07/2024 Do You Use Your Seat Belt Or Car Seat Routinely? Yes Information not available 09/07/2024 Are You Sexually Active? No Information not available 09/07/2024 Do You Have Any Siblings? Brother Information not available 09/07/2024 Do You Have Smoke And Carbon Monoxide Detectors In Your Home? No Information not available 09/07/2024 At What Age Did You Start Smoking Tobacco? 12 Information not available 09/07/2024 Are You Passively Exposed To Smoke? No Information no t available 09/07/2024 Are There Any Smokers In Your House? Yes Information not available 09/07/2024 How Much Tobacco Do You Smoke? 1 PPD Information not available 09/07/2024 Do You Participate In Social Media? No Information not available 09/07/2024 Do You Use Sunscreen Routinely? No Information not available 09/07/2024 Has Tobacco Cessation Counseling Been Provided? Yes Information not available 09/07/2024 On What Date Was Tobacco Cessation Counseling Provided? 12/25/2024 Information not available 12/25/2024 How Many Years Have You Smoked Tobacco? 58 Information not available 09/07/2024 Have You Recently Traveled Abroad? No Information not available 09/07/2024 Do You Have Difficulty Walking Or Climbing Stairs? Yes Information not available 09/07/2024 Are You Currently In School? No Information not available 09/07/2024 What Contraceptive Method Was Reported At Start Of This Visit? Female Sterilization Information not available 09/07/2024 Do You Have Any Dietary Restrictions? No Information not available 09/07/2024 Sex: Unknown Functional Status Question Answer Note LastModified by [employer] Details LastModified Time Do you use any illicit or recreational drugs? Yes Information not available 09/07/2024 Do you or have you ever used any other forms of tobacco or nicotine? No Information not available 09/07/2024 What is your level of alcohol consumption? None Information not available 09/07/2024 Are you currently employed? No Information not available 09/07/2024 Do you have transportation difficulties? No Information not available 09/07/2024 Are you able to walk? YESWOREST Information not available 09/07/2024 Do you have difficulty doing errands alone? Yes Information not available 09/07/2024 Are you able to care for yourself? Yes Information not available 09/07/2024 Do you have difficulty dressing or bathing? No Information not available 09/07/2024 What is your exercise level? Moderate Information not available 09/07/2024 Mental Status Question Answer Note LastModified by [employer] Details LastModified Time Do you feel stressed (tense, restless, nervous, or anxious, or unable to sleep at night)? [id number] Information not available 09/07/2024 Do you have difficulty concentrating, remembering or making decisions? Yes Information no t available 09/07/2024 Are you or have you been involved with bullying? No Information not available 09/07/2024 Family History Relationship Description Onset Age of this Age Resolved Age Notes LastModified by Organization Details LastModified Time Mother Malignant neoplasm of ovary Not available 2024 08:57:46 Medical History Condition Response Anxiety Disorder Y Other Y Acid Reflux (GERD) Y Thyroid Problems Y Depression Y Asthma Y Lung Disease Y Bladder or Kidney Problems Y High Cholesterol Y Fibromyalgia Y Hypertension Y Kidney Disease Y Gynecological History Statement/Question Response Abnormal Pap N Menses Monthly N HPV Vaccine N Date of Last Pap Smear 03/18/2020 Current Control Method Hysterectom y Most Recent Mammogram 09/13/2023 Age at First Child 44 Obstetrics History GPAL:G 5 P 2 0 3 2 Type Value Multiple Births 0 Full Term 2 Induced 1 Spontaneous 2 Premature 0 Living 2 Ectopics 0 Total 5 Immunizations Vaccine Type Date Status Note Provider Nam e and Address Organization Details Recorded Time Influenza, high-dose, quadrivalent, PF 08/31/2023 completed Divine Vice null, [employer] 09/07/2024 08:57:57 COVID-19, mRNA, LNP-S, PF, 30 mcg/0.3 mL dose 06/03/2021 completed Divine Vice null, [employer] 09/07/2024 08:57:57 COVID-19, mRNA, LNP-S, PF, 50 mcg/0.5 mL 08/31/2023 completed Divine Vice null, [employer] 09/07/2024 08:57:57 Influenza, split virus, quadrivalent, PF 04/14/2020 completed Divine Vice null, [employer] 09/07/2024 08:57:57 COVID-19, mRNA, LNP-S, PF, 30 mcg/0.3 mL dose 10/29/2020 completed Not Available [facility] 5 13:03:49 COVID-19, mRNA, LNP-S, PF, 30 mcg/0.3 mL dose 12/03/2020 completed Not Available [facility] 5 13:03:49 Past Encounters Encounter ID Performer Location Encounter Start Date Encounter Closed Date Diagnosis/Indication Diagnosis SNOMED-CT Code Diagnosis ICD10 Code Diagnosis Note [id number] ADOLFO Gutierrez [facility] [address] [address] 10/09/2024 09:28:51 10/09/2024 10:54:34 Screening for osteoporosis 711287359 Z13.820 Essential hypertension 35362190 I10 HIV screening 973896051 Z11.4 Hepatitis C screening 41 9464398 Z11.59 Impacted cerumen 2960177 6 H61.21 Irrigated without issues [id number] ADOLFO Gutierrez [facility] [address] [place] [address] 11/06/2024 10:58:39 11/06/2024 12:08:07 Screening for malignant neoplasm of colon 829214207 Z12.[address] imulating hormone level below reference range 633710471 R94.6 Dysuria 96766534 R30.0 Leukocytes in urine 2757 74850 R82.79 Acute urin chiqui tract infection 277023338 N39.0 Hypothyroidism 52560803 E03.9 Goals Section Goal Description Progress Status Start Date LastModified by Organization Details LastModified Time Blood Pressure Maintains blood pressure goal as defined by care team None active 2024 Rayna Wilson Information not available 10/25/2024 17:41:02 Activities of Daily Living Performs activities of daily living independently or with minimal assistance None active 2024 Rayna Wilson Information not available 10/25/2024 17:40:44 Exercise Regularly Follows a regular exercise regimen or instructed exercise plan as per care team recommendation (s) None active 2024 Rayna Wilson Information not available 10/25/2024 17:41:20 Health Concerns Section Related Observation LastModified by Organization Detai ls LastModified Time None Recorded Concern Status LastModified by Organization Details LastModified Time Essential hypertension Active Alida Garza Not Available 12/25/2024 17:46 :52 Chronic obstructive pulmonary disease Active Alida Garza Not Available 12/25/2024 17: 47:20 Payers Encounter Date Sequence Insurance Name Policy Number Policy Howard Covered Member ID Howard Member ID Guarantor Name 11/06/2024 1 [facility] (MEDICARE REPLACEMENT/A DVANTAGE - HMO) [id number] Jocelyn Clark [id number] Jocelyn Clark Notes Date Note Type Note Provider Name and Address Organization Details Recorded Time 11/06/2024 text/html Patient presents for followup. Needs TSH to check Synthroid dose. C/O dysuria for a few days.She has seen several specialists recently. Some of her meds are costly and the specialist appointments are costly. SHe is supposed to have hip injections next week but has to pay almost $400 up front and isn't sure if she can. ADOLFO Gutierrez [address] [place] [address], [address], [facility] [employer] 11/08/2024 15:21:08 OBGyn Episode No OBEpisode recorded.
--- OUTSIDE RECORDS SUMMARY | 2025-01-03 14:27 | XMS_ITS | Encounter Summary ---
Author Organization [facility] Address [address] [place] [address] Care Team Providers Care Seam Rubber Name Role Phone Ayse Roth APRN Primary Care Provider [phone] Encounter Details Date Type Department Care Team (Late st Contact Info) Description 10/10/2024 Results Follow-Up [facility], [place], [facility] [email or web address], [address] [place] [address] Jenelle Burt MD [id number] [facility] [address] [place] [address] Social History Tobacco Use Types Packs/Day Years Used Date Smoking Tobacco: Every Day Cigarettes 1 61.5 Started: 1963 Passive Smoke Exposure: Never Smokeless Tobacco: Never Alcohol Use Standard Drinks/Week Comments Not Currently 0 (1 standard drink = 0.6 oz pur e alcohol) PHQ-2 Answer Date Recorded Patient Health Questionnaire-2 Score 0 05/21/2024 Comments No Sex and Gender Information Value Date Recorded Sex Assigned at Not on file Legal Sex Female 8:48 PM EDT Gender Identity Not on file Sexual Orientation Not on file documented as of this encounter Plan of Treatment Upcoming Encounters Date Type Department Care Team (Late Contact Info) Description 01/14/2025 9:20 AM EDT Office Visit [facility], [place], [facility] [email or web address], [address] [place] [address] Jenelle Burt MD [address] [facility] [address] [place] [address] documented as of this encounter Visit Diagnoses Not on filedocumented in this encounter Additional Health Concerns Assessment Noted Time A fall risk assessment has been complete d for the patient 10/08/2024 8:52 AM EDT A Body Mass Index follow-up plan has been documented for the patient 10/08/2024 9:14 AM EDT documented as of this encounter Care Teams Seam Rubber Relationship Specialty Start Date End Date Ayse Roth APRN [address] [place] [id number] PCP - General 04/05/24 documented as of this encounter
--- OUTSIDE RECORDS SUMMARY | 2025-01-03 14:27 | XMS_ITS | Data Portability ---
Author Organization [place] - [facility] - [facility] VALENTIN Dumont ADMIN Address [address] [place] [id number] Care Team Providers Care Paver Installer Name Role Phone [facility] Referring Provider Assessment Encounter Date Assessment [...] and reviewed: reviewed and Appropriate Maira AL: [id number] E. As documented in the signed controlled [...] of developing and presence of these conditions). [email or web address] Not available 10/02/2024 16:32:06 10/16/2024 10/16/2024 Images reviewed previously lumbarMRI 2009: moderate to severe DDD, multilevel disc space narrowing, multilevel facet hypertrophy Images reviewed today czppovPiicq88/27/ 2025: Severe DDD, previous hardware appreciated, multilevel [...] and reviewed: reviewed and Appropriate Maira AL: [id number] E. As documented in the signed controlled [...] of developing and presence of these conditions). [email or web address] Not available 10/16/2024 15:05:13 12/24/2024 12/24/2024 Images reviewed previously lumbarMRI 2009: moderate to severe DDD, multilevel disc space narrowing, multilevel facet hypertrophy Images reviewed today dvktlxXahhc73/27/ 2025: Severe DDD, previous hardware appreciated, multilevel facet hypertrophy Lumbar MRI 10/29/2024: severe degenerative disc disease, multilevel facet hypertrophy, prior hardware appreciated at L4 - S1. L2/L3 with severe central canal narrowing and bilateral neural foraminal stenosis, L3/4 central canal narrowing. Multilevel multifidus muscle atrophy 12/24/2024: Plan Today, I discussed with the patient about my current findings based on their history and/or physical exam. They have multiple pain generators, however I will treat their pain in a stepwise plan as outlined below. 1. #Axial Low Back Pain, Chronic worsening #Lumbar Spondylosis #Facetogenic pain - patient has completed physical therapy within the past 6 months. - Lumbar x-ray reviewed again. Lumbar MRI also reviewed and interpreted - previously, I ordered bilateral T12-L2 medial branch blocks under fluoroscopic guidance, but the patient was unable to have this done because the patient could not afford the hospital fee does she is on fixed income. - I still believe that this would be the appropriate approach and help reduce her pain however, because she is going to fixed income she can not financially afford this procedure. Discussed about referring her to a different clinic this injection to help reduce the cost, but patient is not interested at this time - patient will follow up in a month to discuss further assessment her pain. I did offer a epidural because of the severe stenosis and MRI findings But the patient once again would not be able to afford this procedure. This is unfortunate in the care this patient who would benefit greatly from these injections - Total Time spent:40min that includes chart preparation, time spent in the room with the patient reviewing symptoms and discussing treatment options, and reviewing pertinent imaging 2. #Postlaminectomy Syndrome, Chronic worsening #Chronic Pain -Symptoms in the axial low back and b/l lower extremity(s) - So far, Tx's tried/failed or contraindicated: --> Spine surgery: L3-L5 lumbar fusion -->Physical therapy: >6wks without any relief --> Medications: opioids, NSAIDs, Tylenol, lidocaine patches -->Injections: LESI's, RFAs -->Psychological therapy - I have reviewed the lumbar MRI and interpreted my own findings as above 3. #b/l Sacroiliac Joint Pain, Chronic worsening [email or web address] Not available 12/24/2024 16:19:05 Plan of Treatment Reminders Order Date Submit Date Provider Last Modified By Organization Details Last Modified Time Details Appointments OV EST 15 2024 01:00P Arcenio SAAB, DO Not available Not available Not available Lab None recorded . Referral None recorded . Procedures medial branch block, lumbar (PROC) - 19440, 464[address] bilatera l t12- L1 MBB#1 2024 025 Joe Saab DO, [address] [facility], [address], [place], [address], 10/31/2024 10:29:37 Surgeries None recorded . Imaging MRI, lumbar spine, w/o contrast - please evaluate for central and neural foramina l stenosis , MODIC changes, spondylo thesis, b/l pars defect and angular stabilit y, DDD, lumbosac ral transiti onal anatomy 2024 025 [facility], [facility], [place], [address], 10/31/2024 11:55:40 XR, lumbar spine, 2 view - please evaluate for spondylo thesis, b/l pars defect and angular stabilit y 2024 025 [email or web address] [facility] ([facility]), [address] , [place], [address], 10/15/2024 14:33:01 Medication Orders None recorded . [...] luisito consu ltati on, pleas e call [phone]. ===== ===== ===== ===== ===== ===== ===== ===== ===== ===== ===== ===== ===== === Not Available [facility] ([facility]) [address] [place], [address], 10/06/2024 07:13:11 10/03/19 25 10/05/2024 TOXAS SURE FLEX 24, UR pdf . Not Available [facility] ([facility]) [address] [place], [address], 10/06/2024 07:13:11 10/03/19 25 10/05/2024 TOXAS SURE FLEX 24, UR creatinine 47 mg/dL REFER ENCE RANGE : Ref Range >=20 Not Available [facility] ([facility]) [address] [place], [address], 10/06/2024 07:13:11 10/03/19 25 10/05/2024 TOXAS SURE FLEX 24, UR amphetamines ia Negati ve NG/mL cutoff :300 Not Available [facility] ([facility]) [address] [place], [address], 10/06/2024 07:13:11 10/03/19 25 10/05/2024 TOXAS SURE FLEX 24, UR benzodiazepi emi Negati ve Not Available [facility] ([facility]) [address] [place], [address], 10/06/2024 07:13:11 10/03/19 25 10/05/2024 TOXAS SURE FLEX 24, UR diazepam Not Detect ed NG/mg _crea t Not Available [facility] ([facility]) [address] [place], [address], 10/06/2024 07:13:11 10/03/19 25 10/05/2024 TOXAS SURE FLEX 24, UR desmethyldia zepam Not Detect ed NG/mg _crea t Not Available [facility] ([facility]) [address] [place], [address], 10/06/2024 07:13:11 10/03/19 25 10/05/2024 TOXAS SURE FLEX 24, UR oxazepam Not Detect ed NG/mg _crea t Not Available [facility] ([facility]) [address] [place], [address], 10/06/2024 07:13:11 10/03/19 25 10/05/2024 TOXAS SURE [...] marely Oxaze marely: None Not Available [facility] ([facility]) [address] [place], [address], 10/06/2024 07:13:11 10/03/19 25 10/05/2024 TOXAS SURE FLEX 24, UR alprazolam Not Detect ed NG/mg _crea t Not Available [facility] ([facility]) [address] [place], [address], 10/06/2024 07:13:11 10/03/19 25 10/05/2024 TOXAS SURE FLEX 24, UR alpha-hydrox yalprazolam Not Detect ed NG/mg _crea t Not Available [facility] ([facility]) [address] [place], [address], 10/06/2024 07:13:11 10/03/19 25 10/05/2024 TOXAS SURE FLEX 24, UR desalkylflur azepam Not Detect ed NG/mg _crea t Not Available [facility] ([facility]) [address] [place], [address], 10/06/2024 07:13:11 10/03/19 25 10/05/2024 TOXAS SURE FLEX 24, UR lorazepam Not Detect ed NG/mg _crea t Not Available [facility] ([facility]) [address] [place], [address], 10/06/2024 07:13:11 10/03/19 25 10/05/2024 TOXAS SURE FLEX 24, UR alpha-hydrox ytriazolam Not Detect ed NG/mg _crea t Not Available [facility] ([facility]) [address] [place], [address], 10/06/2024 07:13:11 10/03/19 25 10/05/2024 TOXAS SURE FLEX 24, UR clonazepam Not Detect ed NG/mg _crea t Not Available [facility] ([facility]) [address] [place], [address], 10/06/2024 07:13:11 10/03/19 25 10/05/2024 TOXAS SURE FLEX 24, UR 7-aminoclona zepam Not Detect ed NG/mg _crea t Not Available [facility] ([facility]) [address] [place], [address], 10/06/2024 07:13:11 10/03/19 25 10/05/2024 TOXAS SURE FLEX 24, UR midazolam Not Detect ed NG/mg _crea t Not Available [facility] ([facility]) [address] [place], [address], 10/06/2024 07:13:11 10/03/19 25 10/05/2024 TOXAS SURE FLEX 24, UR alpha-hydrox ymidazolam Not Detect ed NG/mg _crea t Not Available [facility] ([facility]) [address] [place], [address], 10/06/2024 07:13:11 10/03/19 25 10/05/2024 TOXAS SURE FLEX 24, UR flunitrazepa m Not Detect ed NG/mg _crea t Not Available [facility] ([facility]) [address] [place], [address], 10/06/2024 07:13:11 10/03/19 25 10/05/2024 TOXAS SURE FLEX 24, UR desmethylflu nitrazepam Not Detect ed NG/mg _crea t Not Available [facility] ([facility]) [address] [place], [address], 10/06/2024 07:13:11 10/03/19 25 10/05/2024 TOXAS SURE FLEX 24, UR cocaine metabolite ia Negati ve NG/mL cutoff :150 Not Available [facility] ([facility]) [address] [place], [address], 10/06/2024 07:13:11 10/03/19 25 10/05/2024 TOXAS SURE FLEX 24, UR ethyl alcohol enzymatic Negati ve g/dL cutoff :0.020 Not Available [facility] ([facility]) [address] [place], [address], 10/06/2024 07:13:11 10/03/19 25 10/05/2024 TOXAS SURE FLEX 24, UR ethanol biomarkers ia Negati ve NG/mL cutoff :500 Not Available [facility] ([facility]) [address] [place], [address], 10/06/2024 07:13:11 10/03/19 25 10/05/2024 TOXAS SURE FLEX 24, UR cannabinoids ia COMMEN T NG/mL cutoff :20 Furth er testi ng indic ated Not Available [facility] ([facility]) [address] [place], [address], 10/06/2024 07:13:11 10/03/19 25 10/05/2024 TOXAS SURE FLEX 24, UR 6-acetylmorp ezequiel ia Negati ve NG/mL cutoff :10 Not Available [facility] ([facility]) [address] [place], [address], 10/06/2024 07:13:11 10/03/19 25 10/05/2024 TOXAS SURE FLEX 24, UR opiate class ia Negati ve NG/mL cutoff :100 Not Available [facility] ([facility]) [address] [place], [address], 10/06/2024 07:13:11 10/03/19 25 10/05/2024 TOXAS SURE FLEX 24, UR oxycodone class ia Negati ve NG/mL cutoff :100 Not Available [facility] ([facility]) [address] [place], [address], 10/06/2024 07:13:11 10/03/19 25 10/05/2024 TOXAS SURE FLEX 24, UR methadone ia Negati ve NG/mL cutoff :100 Not Available [facility] ([facility]) [address] [place], [address], 10/06/2024 07:13:11 10/03/19 25 10/05/2024 TOXAS SURE FLEX 24, UR methadone mtb ia Negati ve NG/mL cutoff :100 Not Available [facility] ([facility]) [address] [place], [address], 10/06/2024 07:13:11 10/03/19 25 10/05/2024 TOXAS SURE FLEX 24, UR buprenorphin e Negati ve Not Available [facility] ([facility]) [address] [place], [address], 10/06/2024 07:13:11 10/03/19 25 10/05/2024 TOXAS SURE FLEX 24, UR buprenorphin e Not Detect ed NG/mg _crea t Not Available [facility] ([facility]) [address] [place], [address], 10/06/2024 07:13:11 10/03/19 25 10/05/2024 TOXAS SURE FLEX 24, UR norbuprenorp ezequiel Not Detect ed NG/mg _crea t Not Available [facility] ([facility]) [address] [place], [address], 10/06/2024 07:13:11 10/03/19 25 10/05/2024 TOXAS SURE FLEX 24, UR fentanyl / analogues Negati ve Not Available [facility] ([facility]) [address] [place], [address], 10/06/2024 07:13:11 10/03/19 25 10/05/2024 TOXAS SURE FLEX 24, UR fentanyl Not Detect ed NG/mg _crea t Not Available [facility] ([facility]) [address] [place], [address], 10/06/2024 07:13:11 10/03/19 25 10/05/2024 TOXAS SURE FLEX 24, UR norfentanyl Not Detect ed NG/mg _crea t Not Available [facility] ([facility]) [address] [place], [address], 10/06/2024 07:13:11 10/03/19 25 10/05/2024 TOXAS SURE FLEX 24, UR tapentadol ia Negati ve NG/mL cutoff :200 Not Available [facility] ([facility]) [address] [place], [address], 10/06/2024 07:13:11 10/03/19 25 10/05/2024 TOXAS SURE FLEX 24, UR meperidine ia Negati ve NG/mL cutoff :200 Not Available [facility] ([facility]) [address] [place], [address], 10/06/2024 07:13:11 10/03/19 25 10/05/2024 TOXAS SURE FLEX 24, UR propoxyphene ia Negati ve NG/mL cutoff :300 Not Available [facility] ([facility]) [address] [place], [address], 10/06/2024 07:13:11 10/03/19 25 10/05/2024 TOXAS SURE FLEX 24, UR tramadol ia Negati ve NG/mL cutoff :200 Not Available [facility] ([facility]) [address] [place], [address], 10/06/2024 07:13:11 10/03/19 25 10/05/2024 TOXAS SURE FLEX 24, UR barbiturates ia Negati ve NG/mL cutoff :200 Not Available [facility] ([facility]) [address] [place], [address], 10/06/2024 07:13:11 10/03/19 25 10/05/2024 TOXAS SURE FLEX 24, UR sympathomime tics Negati ve Not Available [facility] ([facility]) [address] [place], [address], 10/06/2024 07:13:11 10/03/19 25 10/05/2024 TOXAS SURE FLEX 24, UR atomoxetine Not Detect ed Not Available [facility] ([facility]) [address] [place], [address], 10/06/2024 07:13:11 10/03/19 25 10/05/2024 TOXAS SURE FLEX 24, UR diethylpropi on Not Detect ed Not Available [facility] ([facility]) [address] [place], [address], 10/06/2024 07:13:11 10/03/19 25 10/05/2024 TOXAS SURE FLEX 24, UR mdea Not Detect ed Not Available [facility] ([facility]) [address] [place], [address], 10/06/2024 07:13:11 10/03/19 25 10/05/2024 TOXAS SURE FLEX 24, UR ephedrine/ps eudoephedrin e Not Detect ed Not Available [facility] ([facility]) [address] [place], [address], 10/06/2024 07:13:11 10/03/19 25 10/05/2024 TOXAS SURE FLEX 24, UR methylphenid ate Not Detect ed Not Available [facility] ([facility]) [address] [place], [address], 10/06/2024 07:13:11 10/03/19 25 10/05/2024 TOXAS SURE FLEX 24, UR ritalinic acid Not Detect ed Not Available [facility] ([facility]) [address] [facility], [place], [address], 10/06/2024 07:13:11 10/03/19 25 10/05/2024 TOXAS SURE FLEX 24, UR phenmetrazin e Not Detect ed Not Available [facility] ([facility]) [address] [facility], [place], [address], 10/06/2024 07:13:11 10/03/19 25 10/05/2024 TOXAS SURE FLEX 24, UR phentermine Not Detect ed Not Available [facility] ([facility]) [address] [facility], [place], [address], 10/06/2024 07:13:11 10/03/19 25 10/05/2024 TOXAS SURE FLEX 24, UR phenylpropan olamine Not Detect ed Not Available [facility] ([facility]) [address] [facility], [place], [address], 10/06/2024 07:13:11 10/03/19 25 10/05/2024 TOXAS SURE FLEX 24, UR methcathinon e Not Detect ed Not Available [facility] ([facility]) [address] [facility], [place], [address], 10/06/2024 07:13:11 10/03/19 25 10/05/2024 TOXAS SURE FLEX 24, UR other hallucinogen s Negati ve Not Available [facility] ([facility]) [address] [facility], [place], [address], 10/06/2024 07:13:11 10/03/19 25 10/05/2024 TOXAS SURE FLEX 24, UR ketamine Not Detect ed Not Available [facility] ([facility]) [address] [facility], [place], [address], 10/06/2024 07:13:11 10/03/19 25 10/05/2024 TOXAS SURE FLEX 24, UR norketamine Not Detect ed Not Available [facility] ([facility]) [address] [place], [address], 10/06/2024 07:13:11 10/03/19 25 10/05/2024 TOXAS SURE FLEX 24, UR phencyclidin e ia Negati ve NG/mL cutoff :25 Not Available [facility] ([facility]) [address] [place], [address], 10/06/2024 07:13:11 10/03/19 25 10/05/2024 TOXAS SURE FLEX 24, UR gabapentin ia Negati ve ug/mL cutoff :1.0 Not Available [facility] ([facility]) [address] [place], [address], 10/06/2024 07:13:11 10/03/19 25 10/05/2024 TOXAS SURE FLEX 24, UR carisoprodol ia Negati ve NG/mL cutoff :100 Not Available [facility] ([facility]) [address] [place], [address], 10/06/2024 07:13:11 10/03/19 25 10/05/2024 TOXAS SURE FLEX 24, UR sedative/hyp notics Negati ve Not Available [facility] ([facility]) [address] [place], [address], 10/06/2024 07:13:11 10/03/19 25 10/05/2024 TOXAS SURE FLEX 24, UR zolpidem Not Detect ed Not Available [facility] ([facility]) [address] [place], [address], 10/06/2024 07:13:11 10/03/19 25 10/05/2024 TOXAS SURE FLEX 24, UR zolpidem acid Not Detect ed Not Available [facility] ([facility]) [address] [place], [address], 10/06/2024 07:13:11 10/03/19 25 10/05/2024 TOXAS SURE FLEX 24, UR zopiclone/es zopiclone Not Detect ed Not Available [facility] ([facility]) [address] [facility], [place], [address], 10/06/2024 07:13:11 10/03/19 25 10/05/2024 TOXAS SURE FLEX 24, UR amino chloropyridi ne Not Detect ed Not Available [facility] ([facility]) [address] [facility], [place], [address], 10/06/2024 07:13:11 10/03/19 25 10/05/2024 TOXAS SURE FLEX 24, UR zaleplon Not Detect ed Expec darlin metab olism of Sedat [place]/ Hypno tics: Paren t Drug Detec darlin Metab olite s ----- ----- - ----- ----- ----- ----- Zolpi dem: Zolpi dem Acid Zopic lone/ Eszop iclon e: Amino Chlor opyri dine Zalep jojo: None Not Available [facility] ([facility]) [address] [facility], [place], [address], 10/06/2024 07:13:11 10/03/19 25 10/05/2024 TOXAS SURE FLEX 24, UR acetaminophe n ia COMMEN T ug/mL cutoff :5.0 Furth er testi ng indic ated Not Available [facility] ([facility]) [address] [facility], [place], [address], 10/06/2024 07:13:11 10/03/19 25 10/05/2024 TOXAS SURE FLEX 24, UR miscellaneou s Negati ve Not Available [facility] ([facility]) [address] [facility], [place], [address], 10/06/2024 07:13:11 10/03/19 25 10/05/2024 TOXAS SURE FLEX 24, UR dextromethor escobedo Not Detect ed Not Available [facility] ([facility]) [address] [place], [address], 10/06/2024 07:13:11 10/03/19 25 10/05/2024 TOXAS SURE FLEX 24, UR dextrorphan/ levorphanol [...] used for abdulaziz sis. Not Available [facility] ([facility]) [address] [facility], [place], [address], 10/06/2024 07:13:11 10/03/19 25 10/05/2024 SHEELA MERCADO DS, MS, UR RFX cannabinoids +POSIT SARAH+ Not Available [facility] ([facility]) [address] [place], [address], 10/06/2024 07:13:12 10/03/19 25 10/05/2024 SHEELA MERCADO DS, MS, UR RFX carboxy-THC 151 NG/mg [...] gener ally synth esize d from other sheela mercado ds. Not Available [facility] ([facility]) [address] [facility], [place], [address], 10/06/2024 07:13:12 10/03/19 25 10/05/2024 ACETA MINOP HEN, MS, UR RFX analgesics/n saids +POSIT SARAH+ Not Available [facility] ([facility]) [address] [facility], [place], [address], 10/06/2024 07:13:12 10/03/19 25 10/05/2024 ACETA MINOP HEN, MS, UR RFX acetaminophe n PRESEN T Not Available [facility] ([facility]) [address] [facility], [place], [address], 10/06/2024 07:13:12 10/16/19 25 10/11/2024 XR, lumba r spine , 2 view No observ ation record ed. [facility] [address] [place], [address], 10/24/2024 12:23:11 10/16/19 25 10/11/2024 XR, lumba r spine [facility] [place] [address] Phone: Fax: Name: JOCELYN ARELLANO Exam Date: 025 : 1954 Age 69 years Gender : F Access ion: [id number] Physic christopher: IRVIN SAAB Facili ty: [place] Facili ty HSV: Outpat ient Exam: LUMBAR [...] you for referr ing [facility] to [facility] Legall y authen ticate d by LINO MÉNDEZ MD 2024-0 10-11 12:32: 10 CC'ed Logic: Orderi ng Provid er: KAISER Saleem CC Provid er: STONE D Attend ing Provid er: KAISER Saleem Referr ing Provid er: KAISER Saleem Admitt ing Provid er: KAISER Saleem [facility] (Radiology) [address] [place] [address] [place], [address], 10/24/2024 11:33:24 10/31/19 25 10/29/2024 MRI, lumba r spine , w/o contr ast No observ ation record ed. [facility] [facility] [address], [place], [address], 11/23/2024 11:22:10 Result Notes Documentation Provider Name and Address Organization Details Recorded Time Xr, Lumbar Spine : [address] [place] [address] Name: JOCELYN ARELLANO Exam Date: 10/11/2024 : 1955 Age 69 years Gender: F Physician: JOE SAAB Facility: [facility] Facility HSV: Outpatient Exam: LUMBAR 5V XR LUMBAR SPINE 5 VIEWS Reason For Study: pain COMPARISON:04/28/2010 TECHNIQUE: 5 views of the lumbar spine were obtained. FINDINGS There is a scoliosis 30 degrees. Some wedging of the vertebral bodies in the cavity of scoliotic curve. Hardware L4-5 L5-S1 intact. Moderate to severe degenerative disc disease and facet disease. Bones are demineralized. No acute fracture evident. Constipation. Bilateral renal artery stents noted. IMPRESSION: Moderate to severe degenerative changes. No acute fracture. Electronically signed by: Dev Sanchez MD 10/15/2024 01:44 PM EDT RP Dictated By: DEV SANCHEZ Transcribed By: Transcribed On: 10/11/2024 12:32 PM Electronically signed by: DEV SANCHEZ 10/11/2024 Thank you for referring JOCELYN ARELLANO to [facility]. Legally authenticated by LINO MÉNDEZ MD 2024-10-11 12:32:10 CC'ed Logic: Ordering Provider: KAISER FRANK Provider: JOSEPHINE Bain Attending Provider: KAISER HAMPTON Referring Provider: KAISER HAMPTON Admitting Provider: KAISER SAAB DO [address] [place], [address], [place] - [facility] [place] 10/24/2024 11:33:24 Problems Name Problem SNOMED Code Status Onset Date Resolution Date Notes Provider Name and Address Organization Details Recorded Time Inflammation of sacroiliac joint 20797998 Active 20[address], [address], [place] - [facility] [place] 5 10:12:37 Lumbar spondylosis 088593683 Active 2024 JOE SAAB [address], [address], [place] [facility] [place] 5 10:12:40 Post-laminecto my syndrome 86586247 Active 2024 JOE SAAB [address], [address], [place] [facility] [place] 5 16:25:09 Chronic kidney disease 175862629 Active 2024 JOE SAAB [address], [address], [place] [facility] [place] 03/18/202 5 16:25:10 Chronic low back pain 949348740 Active 2024 JOE SAAB DO [address] [facility], [place], [address], [facility] - [facility] [place] 5 16:25:11 Nicotine dependence 19862713 Active 2024 JOE SAAB DO [address] [place], [address], [place] - [facility] [place] 5 16:35:55 Stenosis of spinal canal due to intervertebral disc 942357003 Active 2024 JOE SAAB DO [address] [facility], [place], [address], [facility] - [place] 5 15:05:22 Closed fracture lumbar vertebra, wedge 003113856 Active 2024 JOE SAAB DO [address] [place] [address], [place], [address], [place] - [facility] [place] 5 15:06:57 Problem Notes None recorded. Procedures Surgical History Date Name Laterality Status Provider Name and Address Organization Details Recorded Time 3 Other completed [facility] - [facility] [facility] [place] 10/16/2024 14:27:14 0 Back Surgery completed [facility] [place] [facility] [place] 10/16/2024 14:27:14 4 Other completed [facility] [place] [facility] [place] 10/16/2024 14:27:14 Imaging Results None recorded. Procedure Notes None recorded. Medical Equipment None Reported. Allergies No known drug allergies Medications Name Sig Start Date Stop Date Status Note LastModified by Organization Details LastModified Time atorvastati n 80 mg tablet TAKE 1 TABLET BY MOUTH DAILY active Not Available Not Available No t Available lamotrigine 200 mg tablet TAKE 1 TABLET BY MOUTH DAILY active Not Available Not Available No t Available trazodone 50 mg tablet TAKE 1 TABLET BY MOUTH EVERY NIGHT AT BEDTIME NEEDED FOR INSOMNIA active Not Available Not Available No t Available metoprolol tartrate 100 mg tablet TAKE 1 TABLET BY MOUTH TWICE DAILY active Not Available Not Available No t Available valacyclovi r 1 gram tablet TAKE 1 TABLET BY MOUTH EVERY 8 HOURS FOR 14 DAYS active Not Available Not Available No t Available alendronate 70 mg tablet active Not Available Not Available Not Available hydralazine 25 mg tablet TAKE 1 TABLET BY MOUTH TWICE DAILY active Not Available Not Available No t Available sulfamethox azole 800 mg-trimetho prim 160 mg tablet TAKE 1 TABLET BY MOUTH EVERY 12 HOURS FOR 7 DAYS active Not Available Not Available No t Available amitriptyli ne 50 mg tablet TAKE 1 TABLET BY MOUTH DAILY 12/24 completed Not Available Not Available Not Available lamotrigine 25 mg tablet active Not Available Not Available Not Available levothyroxi ne 75 mcg tablet TAKE 1 TABLET BY MOUTH 30 TO 60 MINUTES BEFORE BREAKFAST DAILY 12/24 completed Not Available Not Available Not Available levothyroxi ne 100 mcg tablet 12/24 completed Not Available Not Available Not Available amitriptyli ne 25 mg tablet TAKE 3 TABLET BY MOUTH AT BEDTIME NEEDED FOR SLEEP 12/24 completed Not Available Not Available Not Available amlodipine 10 mg tablet TAKE 1 TABLET BY MOUTH DAILY active Not Available Not Available No t Available pantoprazol e 40 mg tablet,dipesh yed release TAKE 1 TABLET BY MOUTH EVERY DAY active Not Available Not Available No t Available lisinopril 10 mg tablet active Not Available Not Available Not Available valsartan 320 mg tablet TAKE 1 TABLET BY MOUTH DAILY active Not Available Not Available No t Available Synthroid 50 mcg tablet TAKE 1 TABLET BY MOUTH EVERY DAY active Not Available Not Available No t Available gabapentin 100 mg capsule active Not Available Not Available Not Available oxycodone-a cetaminophe n 7.5 mg-325 mg tablet TAKE 1 TABLET BY MOUTH EVERY 6 HOURS active Not Available Not Available No t Available cefdinir 300 mg capsule TAKE 1 CAPSULE BY MOUTH EVERY 12 HOURS FOR 10 DAYS active Not Available Not Available No t Available amitriptyli ne 100 mg tablet TAKE 1 TABLET BY MOUTH DAILY active Not Available Not Available No t Available lamotrigine 100 mg tablet TAKE 1 TABLET BY MOUTH DAILY active Not Available Not Available No t Available verapamil ER 240 mg 24 hr capsule,ext ended release TAKE 1 CAPSULE BY MOUTH TWICE DAILY active Not Available Not Available No t Available levothyroxi ne 112 mcg tablet TAKE 1 TABLET BY MOUTH DAILY active Not Available Not Available No t Available verapamil ER 120 mg 24 hr capsule,ext ended release TAKE 1 CAPSULE BY MOUTH DAILY 12/24 completed Not Available Not Available Not Available nitrofurant oin monohydrate /macrocryst als 100 mg capsule TAKE 1 CAPSULE BY MOUTH EVERY 12 HOURS FOR 7 DAYS active Not Available Not Available No t Available duloxetine 60 mg capsule,del ayed release TAKE 1 CAPSULE BY MOUTH DAILY active Not Available Not Available No t Available calcium 600 mg (as carbonate)- vitamin D3 10 mcg (400 unit) tablet TAKE 1 TABLET BY MOUTH EVERY DAY active Not Available Not Available No t Available budesonide- formoterol HFA 80 mcg-4.5 mcg/actuati on aerosol inhaler INHALE 2 PUFFS BY MOUTH TWICE DAILY RINSE MOUTH AFTER EACH USE active Not Available Not Available No t Available cholecalcif daniel (vitamin D3) 1,250 mcg (50,000 unit) capsule TAKE 1C BY MOUTH ONCE WEEKLY FOR VITAMIN DEFICIENC Y active Not Available Not Available No t Available Vitamin D3 50 mcg (2,000 unit) tablet TAKE 1 TABLET BY MOUTH EVERY DAY active Not Available Not Available No t Available Vitals Date Recorded Body weight Body temperature Oxygen saturation Oxygen saturation in Arterial blood by Pulse oximetry Heart rate Systolic blood pressure Diastolic blood pressure Provider Name and Address Organization Details Last Updated DateTime 5 25872.3 2 g 97.5 [degF] 100 % 100 % 56 /min 183 mm[Hg] 90 mm[Hg] [facility] & [place] 5 09:39:22 Date Recorded Body weight Body temperature Oxygen saturation Oxygen saturation in Arterial blood by Pulse oximetry Heart rate Systolic blood pressure Diastolic blood pressure Provider Name and Address Organization Details Last Updated DateTime 5 50148.4 5 g 97.6 [degF] 99 % 99 % 53 /min 156 mm[Hg] 82 mm[Hg] [facility] & [place] 5 14:26:37 Date Recorded Body weight Body temperature Oxygen saturation Oxygen saturation in Arterial blood by Pulse oximetry Heart rate Systolic blood pressure Diastolic blood pressure Provider Name and Address Organization Details Last Updated DateTime 5 50493.4 5 g 97.5 [degF] 98 % 98 % 52 /min 150 mm[Hg] 77 mm[Hg] Teresa Brown [facility] & [place] 11:10:16 Social History Question Answer Notes LastModified by Organizat ion Details LastModified Time Tobacco Smoking Status Current Every Day Smoker Teresa Rm [facility], [place] - [facility] - [place] & [place] 10/16/2024 14:27:11 Do You Have An Advance Directive? No [email or web address] Information not available 10/16/2024 Are You Blind Or Do You Have Difficulty Seeing? No [email or web address] Information not available 10/16/2024 What Was The Date Of Your Most Recent Tobacco Screening? 10/13/2024 [email or web address] Information not available 10/16/2024 Are You Passively Exposed To Smoke? Yes [email or web address] Information not available 10/16/2024 How Much Tobacco Do You Smoke? 1 PPD [email or web address] Information not available 10/16/2024 How Many Years Have You Smoked Tobacco? 50 Information not available 10/16/2024 Sex: Female Functional Status Question Answer Note LastModified by Organizat ion Details LastModified Time Do you use any illicit or recreational drugs? Yes [email or web address] Information not available 10/16/2024 What is your level of alcohol consumption? None [email or web address] Information not available 10/16/2024 Do you or have you ever used smokeless tobacco? Never used smokeless tobacco [email or web address] Information not available 10/16/2024 What is your exercise level? Occasional [email or web address] Information not available 10/16/2024 Mental Status Question Answer Note LastModified by Organization D etails LastModified Time Do you feel stressed (tense, restless, nervous, or anxious, or unable to sleep at night)? [id number] [email or web address] Information not available 10/16/2024 Family History Nothing [...] SNOMED-CT Code Diagnosis ICD10 Code Diagnosis Note [id number] JOE SAAB DO [facility]- [address] [place], [place] [address] 10/02/2024 09:22:55 10/02/2024 10:32:07 Inflammation of sacroiliac joint 00260377 M46.1 Lumbar spondylosis 58762 0009 M47.896 Post-latasha ectomy syndrome 86331106 M96.1 Chronic ki dney disease 319400827 N18.9 Chronic low back pain 27 5182271 M54.50 G89.29 Nicotine dependence 5629 4008 F17.235 [id number] [facility]AA[facility] DO [facility] [address] [place] [address] 10/16/2024 13:51:53 10/16/2024 14:53:54 Inflammation of sacroiliac joint 42625005 M46.1 Lumbar spondylosis 74448 0009 M47.896 Post-latasha ectomy syndrome 38286008 M96.1 Chronic ki dney disease 781928378 N18.9 Chronic low back pain 27 2320180 M54.50 G89.29 Nicotine dependence 5629 4008 F17.200 Stenosis o f spinal canal due to intervertebral disc 832592467 M99.53 Closed fra cture lumbar vertebra, wedge 826713702 S32.020D [id number] JOE SAAB DO [facility] [address] [place] [address] 12/24/2024 10:55:04 12/24/2024 11:43:37 Inflammation of sacroiliac joint 13309152 M46.1 Lumbar spondylosis 79429 0009 M47.896 Post-latasha ectomy syndrome 50401658 M96.1 Chronic ki dney disease 611679705 N18.9 Chronic low back pain 27 2232312 M54.50 G89.29 Nicotine dependence 5629 4008 F17.200 Stenosis o f spinal canal due to intervertebral disc 898743762 M99.53 Closed fra cture lumbar vertebra, wedge 808278394 S32.020D Health Concerns Section Related Observation LastModified by Organization Detai ls LastModified Time None Recorded Concern Status LastModified by Organization Details LastModified Time None Recorded Advance Directives Directive N: Payers Insurance Date Sequence Insurance Name Policy Number Policy Howard Covered Member ID Howard Member ID Guarantor Name 09/10/2024 1 [place]: AM[place]AVE[place] OF [place] - MEDICA[place] ([place]MO) [id number] Jocelyn Arellano [id number] Jocelyn Arellano 12/27/2024 1 [place] OF [facility] MEDIBLUE PLUS (MEDICARE REPLACEMENT HMO) [id number] Jocelyn Arellano [id number] Jocelyn Arellano Notes Date Note Type Note Provider Name and Address Organization Details Recorded Time 5 text/html Patient presented with chronic low back pain for several years and with a previous history of lumbar spinal fusion. She has been treated previously by the pain treatment Center in [facility]. She asked to leave and be seen by a different interventional pain physician. She supposedly has a medical marijuana card. She has not received injections and was being treated with medication management Referral: Alida MATAXJ-AZGY-wcbcpgd use disorder, CAD, hypothyroidism, HTN, CKD stage [...] unknownAnticoagulation: NoneAntiplatelets: NoneWork Status: retired JOE SAAB, [address], [address], [place] - [facility] - [place] & [place] 10/02/2024 16:36:20 5 text/html Patient presented with chronic low back pain for several years and with a previous history of lumbar spinal fusion. She has been treated previously by the pain treatment Center in [facility]. She asked to leave and be seen by a different interventional pain physician. She did not receive injections and was being treated with medication management Referral: Alida MATAHQ-NPAH-hqseznt use disorder, CAD, hypothyroidism, HTN, CKD stage [...] unknownAnticoagulation: NoneAntiplatelets: NoneWork Status: retired JOE SAAB, [address], [address] 10/16/2024 15:57:07 5 text/html Patient presented with chronic low back pain for several years and with a previous history of lumbar spinal fusion. She has been treated previously by the pain treatment Center in [facility]. She asked to leave and be seen by a different interventional pain physician. She did not receive injections and was being treated with medication management Referral: Alida Garza WU-ARQY-aaukywu use disorder, CAD, hypothyroidism, HTN, CKD stage 3b- prior L3-5 Fusion Interval History 12/24/2024:Patient presents today for recurrent chronic LB pain and to f/u to review imaging that has been completed since the last visit. She was able to have her MRI completed. Patient was last seen on 10/16/2024 where I ordered lumbar Mbbs, however she was unable to get them done because the hospital was going to charge her close to 400 dollars to have the injections completed. Patient mentioned that she has on a fixed income and this would like out large portion of finances, which would leave her unable to pay for bills her groceries. She is continuing to have recurrent chronic thoracolumbar pain at this time. She would like to have an injection done, but she is unable to afford it financially at this time. She is also here with her son again. Patient currently denies saddle anesthesia, bowel/bladder incontinence, worsening/progressive weakness. her pain today is 7/10. Patient again has about medication and if this avenue can be pursued. I again told the patient that I am unable to prescribe any scheduled medication if she is continued to have THC in her system Prior visits, the urine and confirmation, both showed THC. Patient reported again she had marijuana card saw Dr. Miller who issued her a marijuana license. However, look through the folder not see any documentation that proves she has a legal marijuana card. Functional Goals of Treatment: Reduce the pain [...] unknownAnticoagulation: NoneAntiplatelets: NoneWork Status: retired JOE [employer], [address], [place], [address], [facility] - [facility] 12/24/2024 16:19:09 OBGyn Episode No OBEpisode recorded.
--- OUTSIDE RECORDS SUMMARY | 2025-01-03 14:27 | XMS_ITS | Encounter Summary ---
Author Organization [facility] Address [address] [place] [address] Care Team Providers Care Architecture Consultant Name Role Phone Ayse Roth APRN Primary Care Provider [phone] Encounter Details Date Type Department Care Team (Latest Contact Info) Description 12/21/2024 Travel Social History Tobacco Use Types Packs/Day Years Used Date Smoking Tobacco: Every Day Cigarettes 1 61.5 Started: 1964 Passive Smoke Exposure: Never Smokeless Tobacco: Never [...] Description 01/14/2025 9:20 AM EDT Office Visit Professional [facility] [address], [address] [place] [address] Jenelle Burt MD [address] [facility] [address] [place] [address] documented as of this encounter Visit Diagnoses Not on filedocumented in this encounter Additional Health Concerns Assessment Noted Time A fall risk assessment has been complete d for the patient 10/08/2024 8:52 AM EDT A Body Mass Index follow-up plan has been documented for the patient 12/21/2024 1:16 PM EDT documented as of this encounter Care Teams Architecture Consultant Relationship Specialty Start Date End Date Ayse Roth APRN [address] [place] [address] PCP - General 04/05/24 documented as of this encounter
--- OUTSIDE RECORDS SUMMARY | 2025-01-03 14:27 | XMS_ITS | Continuity of Care Document ---
Author Organization [facility] New Address [address] [place] [address] Care Team Providers Care Medicine Aide Name Role Phone [facility] Referring Provider Assessment Encounter Date Assessment Date Assessment LastModified by Organization Details LastModified Time 12/24/2024 12/24/2024 Images reviewed previously lumbarMRI 2009: moderate to severe DDD, multilevel disc space narrowing, multilevel facet hypertrophy Images reviewed today pgcvvfCpvdq80/01/2025: Severe DDD, previous hardware appreciated, multilevel facet [...] treatment options, and reviewing pertinent imaging 2. #Postlaminectom y Syndrome, Chronic worsening #Chronic Pain -Symptoms in the axial low back and b/l lower extremity(s) - So far, Tx's tried/failed or contraindicated : --> Spine surgery: L3-L5 lumbar fusion -->Physical therapy: >6wks without any relief --> Medications: opioids, NSAIDs, Tylenol, lidocaine patches -->Injections: LESI's, RFAs -->Psychologica l therapy - I have reviewed the lumbar MRI and interpreted my own findings as above 3. #b/l Sacroiliac Joint Pain, Chronic worsening Not available 12/24/2024 16:19:05 Plan of Treatment Reminders Order Date Submit Date Provider Last Modified By Organization Details Last Modified Time Details Appointments OV EST 15 025 01:00PM BERTA SAAB, DO Not available Not available Not available Lab None record ed. Referral None record ed. Procedures None record ed. Surgeries None record ed. Imaging None record ed. Medication Orders None record ed. Patient TargetsNo targets recorded. Patient Instructions Encounter Date Encounter Id Patient Instructions Last Modified By Organization Details Last Modified Time 12/24/2024 [id number] I have discussed in great detail our [...] the benefits of the procedure and interventions. _ __ __ __ __ __ __ __ __ __ __ __ __ __ __ __ __ __ __ __ __ __ __ __ __ __ __ __ _ MIKAELA: [id number] I have reviewed patient's MIKAELA report prior to prescribing Schedule II, III, and IV medications that require review by law. [email or web address] Not available 12/24/2024 16:12:10 Reason for Referral None Reported. Problems Name Problem SNOMED Code Status Onset Date Resolution Date Notes Provider Name and Address Organization Details Recorded Time Inflammation of sacroiliac joint 19287248 Active 2024 BERTA SAAB [address], [address], [place] [facility] & [place] 5 10:12:37 Lumbar spondylosis 599554192 Active 2024 BERTA SAAB [address], [address], [place] - [facility] - [place] & [place] 5 10:12:40 Post-laminecto my syndrome 46740078 Active 2024 BERTA SAAB [address], [address], [place] [facility] & [place] 5 16:25:09 Chronic kidney disease 214696452 Active 2024 BERTA SAAB [address], [address], [place] - [facility] - [place] & [place] 5 16:25:10 Chronic low back pain 630202280 Active 2024 BERTA SAAB [address], [address], [place] [facility] & [place] 5 16:25:11 Nicotine dependence 81966524 Active 2024 BETRA SAAB [address], [address] [place] [address], [place] - [facility] & [place] 5 16:35:55 Stenosis of spinal canal due to intervertebral disc 544507776 Active 20[address] SAAB [address], [address] [place] [address] 1, [facility] - [facility] - [place] & [place] 5 15:05:22 Closed fracture lumbar vertebra, wedge 008200149 Active 2024 BERTA SAAB [address], [address] [place] [address] 1, [place] - [facility] - [place] & [place] 5 15:06:57 Problem Notes None recorded. Procedures Surgical History Date Name Laterality Status Provider Name and Address Organization Details Recorded Time 3 Other completed [facility] - [facility] & [place] 10/16/2024 14:27:14 0 [facility] [place] 10/16/2024 14:27:14 4 Other completed [facility] - [facility] - [place] & [place] 10/16/2024 14:27:14 Imaging Results None recorded. Procedure [...] Address Organization Details Last Updated DateTime 5 74754.4 5 g 97.5 [degF] 98 % 98 % 52 /min 150 mm[Hg] 77 mm[Hg] Teresa Rm [facility] & [place] 5 11:10:16 Social History Question Answer Notes LastModified by Organizat ion Details LastModified Time Tobacco Smoking Status Current Every Day Smoker Teresa Rm [facility], [facility] & [place] 10/16/2024 14:27:11 Do You Have An Advance Directive? No [email or web address] Information not available 10/16/2024 Are You Blind Or Do You Have Difficulty Seeing? No [email or web address] Information not available 10/16/2024 What Was The Date Of Your Most Recent Tobacco Screening? 10/13/2024 Information not available 10/16/2024 Are You Passively Exposed To Smoke? Yes [email or web address] Information not available 10/16/2024 How Much Tobacco Do You Smoke? 1 PPD [email or web address] Information not available 10/16/2024 How Many Years Have You Smoked Tobacco? 50 [email or web address] Information not available 10/16/2024 Sex: Female Functional Status Question Answer Note LastModified by Organizat ion Details LastModified Time Do you use any illicit or recreational drugs? Yes [email or web address] Information not available 10/16/2024 What is your level of alcohol consumption? None [email or web address] Information not available 10/16/2024 Do you or have you ever used smokeless tobacco? Never used smokeless tobacco [email or web address] Information not available 10/16/2024 What is your exercise level? Occasional Information not available 10/16/2024 Mental Status Question Answer Note LastModified by Organization D etails LastModified Time Do you feel stressed (tense, restless, nervous, or anxious, or unable to sleep at night)? [id number] [email or web address] Information not available 10/16/2024 Family History Nothing Reported. Medical History Condition Response Thyroid Problems Y Kidney or Bladder Problems Y COPD Y Lung Disease Y Back Problems Y Reflux/GERD Y Headaches Y Hypertension Y Gynecological HistoryNo gynecological history recorded. Obstetrics History GPAL:G 0 P 0 0 0 0 Past Encounters Encounter ID Performer Location Encounter Start Date Encounter Closed Date Diagnosis/Indication Diagnosis SNOMED-CT Code Diagnosis ICD10 Code Diagnosis Note [id number] BERTA SAAB DO [facility] [place] [address] 12/24/2024 10:55:04 12/24/2024 11:43:37 Inflammation of sacroiliac joint 53335800 M46.1 Lumbar spondylosis 61049 0009 M47.896 Post-latasha ectomy syndrome 35814842 M96.1 Chronic ki dney disease 434887192 N18.9 Chronic low back pain 27 2109929 M54.50 G89.29 Nicotine dependence 5629 4008 F17.200 Stenosis o f spinal canal due to intervertebral disc 001144195 M99.53 Closed fra cture lumbar vertebra, wedge 530623549 S32.020D Health Concerns Section Related Observation LastModified by Organization Detai ls LastModified Time None Recorded Concern Status LastModified by Organization Details LastModified Time None Recorded Payers Encounter Date Sequence Insurance Name Policy Number Policy Howard Covered Member ID Howard Member ID Guarantor Name 12/24/2024 1 [place]MEDICARE REPLACEMENT HMO) [id number] Jocelyn Clark [id number] Jocelyn Clark Notes Date Note Type Note Provider Name and Address Organization Details Recorded Time text/html Patient presented with chronic low back pain for several years and with a previous history of lumbar spinal fusion. She has been treated previously by the pain treatment Center in [facility]. She asked to leave and be seen by a different interventional pain physician. She did not receive injections and was being treated with medication management Referral: Alida MATAIX-MQEQ-jdmzips use disorder, CAD, hypothyroidism, HTN, CKD stage [...] yesDiabetes: noA1C: unknownAnticoagulation: NoneAntiplatelets: NoneWork Status: retired BERTA SAAB, DO [address] [facility], [place], [address], [place] - [facility] - [place] & [place] 12/24/2024 16:19:09 OBGyn Episode No OBEpisode recorded.
--- OUTSIDE RECORDS SUMMARY | 2025-01-03 14:27 | XMS_ITS | Encounter Summary ---
Author Organization [facility] Address [address] [place] [address] Care Team Providers Care Opener Tender Name Role Phone Shadi Montoya MD Primary Care Provider [phone] Ayse Roth APRN Primary Care Provider [phone] Encounter Details Date Type Department Care Team (Late st Contact Info) Description 01/28/2023 Orders Only External Location [address] [place] [address] Provider, External Social History Tobacco Use Types Packs/Day Years Used Date Smoking Tobacco: Every Day Alcohol Use Standard Drinks/Week Comments Yes 0 (1 standard drink = 0.6 oz pur e alcohol) Comments Unknown Sex and Gender Information Value Date Recorded Sex Assigned at Not on file Legal Sex Female 8:48 PM EDT Gender Identity Not on file Sexual Orientation Not on file documented as of this encounter Plan of Treatment Upcoming Encounters Date Type Department Care Team (Late Contact Info) Description 01/14/2025 9:20 AM EDT Office Visit [facility] [address], [address] [place] [address] Jenelle Burt MD [facility] [place] [address] documented as of this encounter Procedures Procedure Name Priority Date/Time Associated Diagnosis Comments POC US ECHOCARDIOGRAPHY COMPLETE W DOPPLER AND COLOR 01/28/2023 2:37 PM EDT documented in this encounter Results * POC US Echocardiography Complete W Doppler and Color (01/28/2023 2:37 PM EDT) Anatomical Region Laterality Modality Other 01/28/2023 2:37 PM EDT us External Provider IMG POINT OF CARE ULTRASOUND F inal Result documented in this encounter Visit Diagnoses Not on filedocumented in this encounter Care Teams Opener Tender Relationship Specialty Start Date End Date Shadi Montoya MD [address] [place] [address] PCP - General 11/28/20 04/04/24 Ayse Roth APRN [address] [place] [address] PCP - General 04/05/24 documented as of this encounter
--- OUTSIDE RECORDS SUMMARY | 2025-01-03 14:27 | XMS_ITS | Clinical Summary ---
Author Organization [facility] Address [address] 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 Active pantoprazole (ProtoNix) 20 MG EC tablet Take 1 tablet (20 mg) by mouth 1 (one) time each day before breakfast. Do not crush, chew, or split. Active cholecalcifero l (Vitamin D-3) 50 MCG (2000 UT) capsule Take 1 capsule (2,000 Units) by mouth 1 (one) time each day. Active ergocalciferol (Vitamin D-2) 1.25 MG (26558 UT) capsule Take 1 capsule (50,000 Units) by mouth 1 (one) time per week. Active metoprolol tartrate (Lopressor) 100 MG tablet Take 1 tablet (100 mg) by mouth 2 (two) times a day. 024 Active atorvastatin (Lipitor) 80 MG tablet Take 1 tablet (80 mg) by mouth 1 (one) time each day. 024 Active valsartan (Diovan) 320 MG tablet Take 1 tablet (320 mg) by mouth daily. Active verapamil (Calan) 120 MG tablet Take 1 tablet (120 mg) by mouth in the evening. Active levothyroxine (Synthroid, Levoxyl) 75 MCG tabletIndicati ons:Hypothyroi dism, unspecified type Take one tablet (75 mcg) levothyroxine 30-60 minutes before breakfast daily 30 tablet 3 025 Active Additional Information Patient taking differently: 0.5 mcg Oral Daily, Take one tablet (75 mcg) levothyroxine 30-60 minutes before breakfast daily, Reported on 12/21/2024 alendronate (Fosamax) 70 MG tablet Take 1 tablet every week by oral route for 90 days, for osteoporosis. Active Calcium Carb-Cholecalc iferol 600-10 MG-MCG tablet Take 1 tablet by mouth daily. Active budesonide-for moterol (Symbicort) 80-4.5 MCG/ACT inhaler Inhale 2 puffs 2 (two) times a day. Rinse mouth with water after use to reduce aftertaste and incidence of candidiasis. Do not swallow. 2024 Discontinued(P er Patient Report) DULoxetine (Cymbalta) [address] capsule Take 1 capsule (20 mg) by mouth 1 (one) time each day. Do not crush or chew. 2024 Discontinued(P er Patient Report) lamoTRIgine (LaMICtal) 25 MG chewable tablet Chew 1 tablet (25 mg) 5 (five) times a day. 2024 Discontinued amitriptyline (Elavil) 25 MG tablet Take 1 tablet (25 mg) by mouth 4 (four) times a day. 2024 Discontinued(P er Patient Report) lamoTRIgine (LaMICtal) 100 MG tablet 2024 Discontinued(P er Patient Report) lamoTRIgine (LaMICtal) 25 MG tablet 024 2024 Discontinued oxyCODONE-acet aminophen (Percocet) 7.5-325 MG tablet Take 1 tablet by mouth every 6 (six) hours. 2024 Discontinued Active Problems Problem Noted Date Diagnosed Date Urinary tract infection with hematuria Persistent proteinuria 08/03/2024 Chronic kidney disease (CKD) stage G3b/A3, moderately decreased glomerular filtration rate (GFR) between 30-44 mL/min/1.73 square meter and albuminuria creatinine ratio greater than 300 mg/g 08/03/2024 Hypertensive chronic kidney disease with stage 1 through stage 4 chronic kidney disease, or unspecified chronic kidney disease 04/05/2024 CKD (chronic kidney disease) stage 4, GFR 15-29 ml/min 04/05/2024 Tobacco use disorder 04/05/2024 Chronic kidney disease-mineral and bone disorder (CKD-MBD) 04/05/2024 Mixed hyperlipidemia 04/05/2024 Coronary artery disease invo lving [place] coronary artery of [place] heart without angina pectoris 04/05/2024 Encounters Date Type Department Care Team Description 12/21/2024 1:00 PM EDT Office Visit [facility] [address] [place] [address] Leobardo Aceves MD Persistent proteinuria (Primary Dx); Hypertensive chronic kidney disease with stage 1 through stage 4 chronic kidney disease, or unspecified chronic kidney disease; Chronic kidney disease (CKD) stage G3b/A3, moderately decreased glomerular filtration rate (GFR) between 30-44 mL/min/1.73 square meter and albuminuria creatinine ratio greater than 300 mg/g ([facility]); Chronic kidney disease-mineral and bone disorder (CKD-MBD); Mixed hyperlipidemia 12/21/2024 Travel 10/10/2024 Results Follow-Up [facility] [address], [address] [place] [address] Jenelle Burt MD 10/09/[address] [phone] Salo Painter MD 10/08/2024 9:20 AM EDT Office Visit [facility] [address], [address] [place] [address] Jenelle Burt MD Hypothyroidism, unspecified type (Primary Dx) 10/08/2024 Travel 10/03/2024 Travel from Last 3 Months Immunizations Immunization Administration Dates Next Due Influenza, high-dose, quadrivalent 08/31/2023 Influenza, injectable, quadrivalent, preservativ e free 04/14/2020 [employer] COVID-19 Vaccine (Purple Cap) 12 + 12/03/2020,10/29/2020 Family History Medical History Relation Name Comments Cardiac disorder Father Stroke Maternal Grandmother Other cancer Mother Diabetes Other Relation Name Status Comments Father Maternal Grandmother Mother Other Social History Tobacco Use Types Packs/Day Years [...] on file Sexual Orientation Not on file Last Filed Vital Signs Vital Sign Reading Time Taken Comments Blood Pressure 171/79 12/21/2024 12:51 PM EDT retook 15 minutes later, 155/74 Pulse 52 10/08/2024 8:52 AM EDT Temperature 36.6 C (97.8 F) 10/08/2024 8:52 AM EDT Respiratory Rate 16 12/21/2024 12:5 1 PM EDT Oxygen Saturation 99% 12/21/2024 12: 51 PM EDT Inhaled Oxygen Concentration - - Weight 67.6 kg (149 lb) 12/21/2024 12:5 1 PM EDT Height 160 cm (5' 3 ) 12/21/2024 12:51 PM EDT Body Mass Index 26.39 12/21/2024 12:51 PM EDT Plan of Treatment Upcoming Encounters Date Type Department Care Team (Late st Contact Info) Description 01/14/2025 9:20 AM EDT Office Visit [facility] [address], [address] [place] [address] Jenelle Burt MD [address] [place] [address] Health Maintenance Due Date Last Done Comments [facility]-Bone Density Scan 1955 [facility]-Hepatitis C Screening 1955 [facility]-Medicare Annual Wellness (AWV) 1955 [facility]-Infant/Child/Adol SDOH Screenings 1955 [facility]- SDOH Screenings 1973 [facility]-Adult SDOH Screenings 1973 [facility]-DTaP,Tdap,and Td Vaccines (1 - Tdap) 1974 [facility]-Pneumococcal Vaccine: 50+ Years (1 of 2 - PCV) 1974 CT Colonography 2000 Colonoscopy 2000 FIT-DNA 2000 FIT 2000 FOBT 2000 Sigmoidoscopy 2000 [facility]-Colorectal Cancer Screening 2000 [facility]-Breast Cancer Screening 2005 [facility]-Lung Cancer Screening 2005 [facility]-Zoster Vaccines (1 of 2) 2005 [facility]-RSV Vaccine: 60+ Years or (1 - Risk 60-74 years 1-dose series) 2015 AFF-[id number]-65 Vaccine ( season) 2024 08/31/2023, 06/03/2021, 12/03/2020, Additional history exists [facility]-Influenza Vaccine (Season Ended) 2025 08/31/2023, 04/14/2020 [facility]-Depression Screening 05/21/2025 05/21/2024 [facility]-Obesity Intervention Completed 025, 10/08/2024, 08/03/2024, Additional history exists HPV Vaccines Aged Out No longer eligi ble based on patient's age to complete this topic [facility]-HIB Vaccines Aged Out No longer e ligible based on patient's age to complete this topic [facility]-Hepatitis A Vaccines Aged Out No longer eligible based on patient's age to complete this topic [facility]-IPV Vaccines Aged Out No longer e ligible based on patient's age to complete this topic [facility]-Rotavirus Vaccines Aged Out No lo nger eligible based on patient's age to complete this topic Procedures Procedure Name Priority Date/Time Associated Diagnosis Comments TSH Routine 10/08/2024 9:28 AM EDT Hypothyroidism, unspecified type FREE T4, PLASMA Routine 10/08/2024 9:28 AM EDT Hypothyroidism, unspecified type from Last 3 Months Results * (ABNORMAL) TSH (10/08/2024 9:28 AM EDT) Thyroid Stimulating Hormone, Plasma 0.09(L) 0.40 - 4.20 uIU/mL 10/08/2024 12:50 PM EDT HEALTHCARE LAB Blood Venous blood specimen / Unknown Venipuncture / Unknown 10/08/2024 9:28 AM EDT 10/08/2024 9:28 AM EDT Jenelle Burt MD LAB BLOOD ORDERABLES [facility] Performing Organization Address City/[facility]/ZIP Co de Phone Number HEALTHCARE LAB [address] [place] [address] * (ABNORMAL) T4, free (10/08/2024 9:28 AM EDT) Free T4, Plasma 2.1(H) 0.8 - 1.7 ng/dL 10/08/2024 12:50 PM EDT HEALTHCARE LAB Blood Venous blood specimen / Unknown Venipuncture / Unknown 10/08/2024 9:28 AM EDT 10/08/2024 9:28 AM EDT Jenelle Burt MD LAB BLOOD ORDERABLES Final R esult [facility] [address] [place] [address] from Last 3 Months Insurance [facility] Care Teams Carbon Capture Power Plant Operator Relationship Specialty Start Date End Date Ayse Roth APRN [address] [place] [address] PCP - General 04/05/24
--- OUTSIDE RECORDS SUMMARY | 2025-01-03 14:28 | XMS_ITS | Continuity of Care Document ---
Author Organization [place] [facility] [place] Address [address] [place] [address] Care Team Providers Care Automobile Appraiser Name Role Phone [facility] Pain Manag ement [phone] [facility] Flight Attendant Inflight Services JANETTE ALVAREZ Community Health Worker ALIDA GARZA Primary Care Provider RAYNA Hurley District Plant Superintendent Assessment No assessment recorded. Plan of Treatment Reminders Order Date Submit Date Provider Last Modified By Organization Details Last Modified Time Details Appointments FOLLOW UP 30 2024 01:00P M Alida Garza PA-C Not available Not available Not available Lab None recorded. Referral None recorded. Procedures None recorded. Surgeries None recorded. Imaging LDCT, chest, for lung cancer screening [address] Scheduling Department -New Scheduling Process, [facility] [address], [place], [address], 01/03/2025 07:13:23 Medication Orders Fosamax 70 mg tablet 2024 025 [facility] #92888, [address] [place], [place], [id number], 12/25/2024 13:38:12 Calcium 600 + D(3) 600 mg-10 mcg (400 unit) tablet 2024 025 [place] [facility]19877, [address] [place], [id number], 12/25/2024 13:38:34 Breztri Aerospher e 160 mcg-9mcg- 4.8mcg/ac tuation HFA aerosol inhaler 2024 025 [facility]76, [address] [place], [id number], 12/25/2024 13:38:31 atorvasta tin 10 mg tablet 2024 025 [facility] #64859, [address], [place], [id number], 12/25/2024 17:44:38 pantopraz ole 40 mg tablet,de layed release 2024 025 [facility] #96569, [address], [place], [id number], 12/25/2024 13:38:26 metoprolo l tartrate 100 mg tablet 2024 025 [facility] #01540, [address], [place], [id number], 12/25/2024 13:38:41 hydralazi ne 25 mg tablet 2024 025 [facility] #97351, [address], [place], [id number], 12/25/2024 13:38:38 valsartan 320 mg tablet 2024 025 [facility] #91616, [address], [place], [id number], 12/25/2024 13:43:02 verapamil ER (SR) 120 mg tablet,ex tended release 2024 025 [facility] #61570, [address] [place], [id number], 12/25/2024 17:46:48 duloxetin e 60 mg capsule,d elayed release 2024 025 [facility] #66978, [address] [place], [place], [id number], 12/25/2024 13:38:07 lamotrigi ne 200 mg tablet 2024 025 [facility] #55297, [address] , [place], [place], [id number], 12/25/2024 13:38:36 levothyro xine 75 mcg tablet 2024 025 [facility] #87084, [address] , [place], [place], [id number], 12/25/2024 17:46:16 Patient TargetsNo targets recorded. Patient Instructions Encounter Date Encounter Id Patient Instructions Last Modified By Organization Details Last Modified Time 12/25/2024 [id number] deciding about using medicines to quit smoking [email or web address] Not available 12/25/2024 13:43:07 Quitting Tobacco : Care Instructions [email or web address] Not available 12/25/2024 13:43:07 chronic obstructive pulmonary disease (COPD): care instructions [email or web address] Not available 12/25/2024 13:37:52 learning about copd and how to prevent lung infections [email or web address] Not available 12/25/2024 13:37:52 high cholesterol : care instructions [email or web address] Not available 12/25/2024 13:37:53 osteoporosis: care instructions [email or web address] Not available 12/25/2024 13:37:52 chronic pain: care instructions [email or web address] Not available 12/25/2024 13:37:53 high blood pressure: care instructions [email or web address] Not available 12/25/2024 13:37:53 learning about high blood pressure [email or web address] Not available 12/25/2024 13:37:53 learning about mood disorders [email or web address] Not available 12/25/2024 13:37:53 hypothyroidism: care instructions [email or web address] Not available 12/25/2024 13:37:53 Reason for Referral None Reported. Problems Name Problem SNOMED Code Status Onset Date Resolution Date Notes Provider Name and Address Organization Details Recorded Time Acute urinary tract infection 946207546 Completed 202410/09/2024 ADOLFO Gutierrez [address] [place] [address], 94234[address]798 8, [employer] 12:01:26 Chronic pain 58694117 Active 2024 ADOLFO Gutierrez [address] [place] [address], 05470-243 8, [employer] 10:35:41 Acute right otitis media 775477235 Completed 202410/09/2024 ADOLFO Gutierrez [address] [place] [address], 86828-513 8, [employer] 10:35:31 Essential hypertensio n 32609786 Active 2024 ADOLFO Gutierrez [address] [place] [address], 21451[address]098 8, [employer] 14:35:45 Chronic obstructive pulmonary disease 46953943 Active 2024 ADOLFO Gutierrez [address] [place] [address], 604[address]-862 8, [employer] 10:35:53 Hyperlipide justin 98368521 Active 2024 ADOLFO Gutierrez [address] [place] [address], 60593-611 8, [employer] 10:36:00 Gastroesoph ageal reflux disease 048392024 Active 2024 ADOLFO Gutierrez [address] [place] [address], 68164-929 8, [employer] 10:36:21 Vitamin D deficiency 22582447 Active 2024 ADOLFO Gutierrez [address] [place] [address], 69661-066 8, [employer] 10:36:42 Depressive disorder 25762147 Active 2024 ADOLFO Gutierrez [address] [place] [address], 87554-442 8, [employer] 5 10:36:58 Impacted cerumen 38208598 Active 2024 ADOLFO Gutierrez [address] [place] [address], 24170-364 8, [employer] 17:54:28 Osteoporosi s 19950298 Active 2024 ADOLFO Gutierrez [address] [place] [address], 19[address]-272 8, [employer] 5 10:36:15 Acute urinary tract infection 698213841 Active 2024 ADOLFO Gutierrez [address] [place] [address], 43746-154 8, [employer] 12:01:26 Hypothyroid ism 19923820 Active 2024 ADOLFO Gutierrez [address] [place] [address], 44120-883 8, [employer] 5 12:38:58 Gastroesoph ageal reflux disease without esophagitis 733989602 Active 2024 ADOLFO Gutierrez [address] [place] [address], 05961-578 8, [employer] 13:34:44 Senile osteoporosi s 62685820 Active 2024 ADOLFO Gutierrez [address] [place] [address], 11970-008 8, [employer] 13:36:49 Tobacco dependence syndrome 84580114 Active 2024 ADOLFO Gutierrez [address] [place] [address], 42562-184 8, [employer] 13:42:45 Problem Notes None recorded. Procedures Surgical History Date Name Laterality Status Provider Name and Address Organization Details Recorded Time 10/10/19 25 Cerumen Removal completed ADOLFO Gutierrez [address] [place] [address], [phone], [place] [employer] 10/09/2024 17:54:56 09/13/19 24 Most Recent Mammogram completed [facility] [employer] 09/21/2024 12:19:51 03/18/20 20 Date of Last Pap Smear completed [facility] 09/21/2024 12:19:37 [facility] 09/07/2024 08:57:47 Back Surgery completed [employer] 09/07/2024 08:57:47 Hysterectomy completed [employer] 09/07/2024 08:57:47 Tubal Ligation completed [facility] 09/07/2024 08:57:47 Dilation and Curettage completed [employer] 09/07/2024 08:57:47 Total Hysterectomy completed [employer] 09/07/2024 08:57:47 Stent completed [employer] 09/07/2024 09:11:45 Imaging Results None recorded. Procedure [...] height Body mass index (BMI) Body weight Oxygen saturation Oxygen saturation in Arterial blood by Pulse oximetry Heart rate Body temperature Systolic blood pressure Diastolic blood pressure Systolic blood pressure Diastolic blood pressure Systolic blood pressure Diastolic blood pressure Provider Name and Address Organization Details Last Updated DateTime 5 162.56 cm 25 kg/m2 59357.7 7 g 96 % 96 % 58 /min 98 [degF] 154 mm[Hg] 74 mm[Hg] 150 mm[Hg] 86 mm[Hg] 150 mm[Hg] 78 mm[Hg] [employer] 14:48:59 Social History Question Answer Notes LastModified by Organizat ion Details LastModified Time Tobacco Smoking Status Current Every Day Smoker [facility] [employer] 09/07/2024 08:57:46 Do You Have An Advance [...] Information not available 09/07/2024 What Type Of Quality Control Lab Technician Do You Use? None Information not available [...] Do You Have A Medical Power Of Assembling Machine Operator? No Information not available 09/07/2024 What Was [...] Mental Status Question Answer Note LastModified by Organizat ion Details LastModified Time Do you feel stressed (tense, restless, nervous, or anxious, or unable to sleep at night)? [id number] Information not available 09/07/2024 Do you have [...] available 2024 08:57:46 Medical History Condition Response Other Y Depression Y Lung Disease Y Anxiety Disorder Y Acid Reflux (GERD) Y Bladder or Kidney Problems Y High Cholesterol Y Fibromyalgia Y Kidney Disease Y Thyroid Problems Y Asthma Y Hypertension Y Gynecological History Statement/Question Response Abnormal Pap [...] quadrivalent, PF 08/31/2023 completed [employer] null, [employer] 09/07/2024 08:57:57 COVID-19, mRNA, LNP-S, PF, 30 mcg/0.3 mL dose 06/03/2021 completed [employer] null, [employer] 09/07/2024 08:57:57 COVID-19, mRNA, LNP-S, PF, 50 mcg/0.5 mL 08/31/2023 completed [employer] null, [employer] 09/07/2024 08:57:57 Influenza, split virus, quadrivalent, PF 04/14/2020 completed [employer] null, [employer] 09/07/2024 08:57:57 COVID-19, mRNA, LNP-S, PF, 30 mcg/0.3 mL dose 10/29/2020 completed Not Available [facility] 13:03:49 COVID-19, mRNA, LNP-S, PF, 30 mcg/0.3 mL dose 12/03/2020 completed Not Available [facility] 13:03:49 Past Encounters Encounter ID Performer Location Encounter Start Date Encounter Closed Date Diagnosis/Indication Diagnosis SNOMED-CT Code Diagnosis ICD10 Code Diagnosis Note [id number] ADOLFO Gutierrez [facility] [address] [place] [address] 12/25/2024 12:56:22 12/25/2024 13:45:23 Hypothyroidism 86683057 E03.9 Chronic ob structive pulmonary disease 45363020 J44.9 Depressive disorder 3548 9007 F32.A Chronic pain 11975539 G8 9.29 Essential hypertension 18284785 I10 Hyperlipidemia 74756346 E78.5 Vitamin D deficiency 347 36516 M81.0 Gastroesop hageal reflux disease without esophagitis 694480102 K21.9 Senile osteoporosis 1804 0001 M81.0 Osteoporosis 25786142 M8 1.0 Tobacco de pendence syndrome 87574190 F17.200 Goals Section Goal Description Progress Status Start [...] Details LastModified Time Essential hypertension Active Alida Stone Not Available 12/25/2024 17:46 :52 Chronic obstructive pulmonary disease Active Alida Stone Not Available 12/25/2024 17: 47:20 Payers Encounter Date Sequence Insurance Name Policy Number Policy Howard Covered Member ID Howard Member ID Guarantor Name 12/25/2024 1 [place]/A DVANTAGE - HMO) [id number] Jocelyn Mike Amber [id number] Jocelyn Clark Notes Date Note Type Note Provider Name and Address Organization Details Recorded Time 12/25/2024 text/html Patient presents for followup.Histor y of hypothyroidism. Stable on Synthroid.Histo ry of COPD. She is doing well with Brextri.History of HTN. Has been seeing us as well as cardiology. Blood pressure today is still slightly elevated but is the best it has ever been. Denies headache, chest pain, vertigo, dyspnea. ADOLFO Gutierrez [address] [place] [address], [place], [address], [facility] [employer] 12/27/2024 13:20:07 OBGyn Episode No OBEpisode recorded.
--- OUTSIDE RECORDS SUMMARY | 2025-01-03 14:28 | XMS_ITS | Data Portability ---
Author Organization Incujector., [facility] Address [address] [place] [address] Care Team Providers Care Snow Maker Name Role Phone [facility] Pain Manag ement [phone] [facility] Submarine Cable Equipment Technician JANETTE ALVAREZ Community Health Worker [phone] ALIDA GARZA Primary Care Provider RAYNA Hurley Ditch Digger Assessment Encounter Date Assessment Date Assessment LastModified by Organization Details LastModified Time 09/07/2024 09/07/2024 Patient presents with symptoms of UTI. Results of dipstick were positive for UTI. Advised to drink clear fluids, Tylenol for pain and take prescribed medications as instructed. Patient encouraged to follow up within 1 week if not improving. [email or web address] Not available 09/07/2024 11:40:58 10/09/2024 10/09/2024 Patient presente d to office today for their Medicare Annual Wellness Visit. Education was provided on healthy nutrition, including a diet rich in fruits and vegetables, minimizing simple carbohydrates, salt, and saturated fats. Encouraged regular cardiovascular exercise such as walking at least 30 minutes daily, 5 times per week. Emphasized preventive health measures and educated pt on fall prevention and community-based lifestyle interventions to help reduce health risks and promote healthy living. Not available 10/09/2024 09:32:47 Plan of Treatment Reminders Order Date Submit Date Provider Last Modified By Organization Details Last Modified Time Details Appointments FOLLOW UP 30 2024 01:00P Arcenio Garza PA-C Not available Not available Not available Lab TSH, ultra-sen sitive, serum 2024 025 [facility] ([place]), [address] [place], [address], 11/10/2024 01:07:22 urinalysi s, dipstick [email or web address] [place] [address], [address] [facility], [place], [address], 11/06/2024 12:18:29 culture, urine 2024 025 [facility] ([place]), [address] [place], [address], 11/10/2024 01:07:23 noninvasi ve colorecta l cancer DNA + occult blood screening , QL, stool 2024 025 [facility] (Cologuard Orders Only), [address], [address], [place], [address], 11/27/2024 08:49:31 lipid panel, serum 2024 025 [facility] ([place]), [address] [place], [address], 10/11/2024 21:06:48 CMP, serum or plasma 2024 025 [facility] ([place]), [address] [place], [address], 10/11/2024 21:06:48 CBC w/ auto diff 2024 025 [facility] ([place]), [address] [place], [address], 10/11/2024 21:06:47 vitamin D, 25-hydrox y, total, serum 2024 025 [facility] ([place]), [address] [place], [address], 10/11/2024 21:06:49 TSH, ultra-sen sitive, serum 2024 025 [facility] ([place]), [address] [place], [address], 10/11/2024 21:06:49 Hepatitis C IgG Ab, qual, serum 2024 025 [facility] ([place]), [address] [place], [address], 10/11/2024 21:06:48 HIV 1 + 2, meaningfu l use set 2024 025 [facility] ([place]), [address] [place], [address], 10/11/2024 21:06:49 urinalysi s, dipstick [address], [address] [place], [place] [address] [facility], [place], [address], 09/07/2024 09:37:05 culture, urine 2024 025 [facility]), [address] [place], [address], 09/10/2024 19:07:22 Referral cardiolog ist referral - first available appt 2024 025 WEI Villegas MD, [address] [facility] [address], [place], [address], 10/11/2024 09:32:42 pain managemen t referral - first available appt 2024 025 [facility], [address] [place] [address] , [facility], [place], [address], 10/10/2024 11:15:41 Procedures None recorded. Surgeries None recorded. Imaging LDCT, chest, for lung cancer screening [address] Scheduling Department -New Scheduling Process, [address] [facility] [address], [place], [address], 01/03/2025 07:13:23 DEXA 2024 025 [facility] Scheduling Department -New Scheduling Process, [facility] [address], [place], [address], 10/30/2024 09:35:56 US, duplex, renal artery - first available appt 2024 025 [facility] Scheduling Department -New Scheduling Process, [facility] [address], [place], [address], 10/05/2024 11:48:07 Medication Orders Fosamax 70 mg tablet 2024 025 [facility], [address] [place], [id number], 12/25/2024 13:38:12 Calcium 600 + D(3) 600 mg-10 mcg (400 unit) tablet 2024 025 [facility] #95596, [address], [place], [id number], 12/25/2024 13:38:34 Breztri Aerospher e 160 mcg-9mcg- 4.8mcg/ac tuation HFA aerosol inhaler 2024 025 [facility] #54495, [address], [place], [id number], 12/25/2024 13:38:31 atorvasta tin 10 mg tablet 2024 025 [facility] #14314, [address], [place], [id number], 12/25/2024 17:44:38 pantopraz ole 40 mg tablet,de layed release 2024 025 [facility] #31408, [address], [place], [id number], 12/25/2024 13:38:26 metoprolo l tartrate 100 mg tablet 2024 [facility] #26948, [address], [place], [id number], 12/25/2024 13:38:41 hydralazi ne 25 mg tablet 2024 [facility] #74423, [address], [place], [id number], 12/25/2024 13:38:38 valsartan 320 mg tablet 2024 [facility] #88929, [address], [place], [id number], 12/25/2024 13:43:02 verapamil ER (SR) 120 mg tablet,ex tended release 2024 [facility] #01501, [address], [place], [id number], 12/25/2024 17:46:48 duloxetin e 60 mg capsule,d elayed release 2024 [facility] #94733, [address], [place], [id number], 12/25/2024 13:38:07 lamotrigi ne 200 mg tablet 2024 [facility] #38991, [address], [place], [id number], 12/25/2024 13:38:36 levothyro xine 75 mcg tablet 2024 025 [facility] #21528, [address], [place], [id number], 12/25/2024 17:46:16 levothyro xine 75 mcg tablet [address] [facility]10978, [address] [place], [id number], 12/25/2024 17:46:05 Macrobid 100 mg capsule 2024 025 [facility]99642, [address] [place], [id number], 12/25/2024 13:11:50 hydralazi ne 25 mg tablet [address] [facility] #49434, [address] [place], [id number], 10/09/2024 09:40:19 cefdinir 300 mg capsule 2024 025 [facility] #53993, [address], [place], [place], [id number], 09/20/2024 14:19:14 clonidine HCl 0.1 mg tablet 2024 025 [facility] Not available 09/20/2024 14:19:12 Patient TargetsNo targets recorded. Patient Instructions Encounter Date Encounter Id Patient Instructions Last Modified By Organization Details Last Modified Time 09/07/2024 [id number] chronic pain: care instructions [email or web address] Not available 09/07/2024 09:33:23 painful urinatio n (dysuria): care instructions Not available 09/07/2024 09:23:10 09/20/2024 [id number] learning about healthy weight [email or web address] Not available 09/20/2024 15:11:45 high blood pressure: care instructions [email or web address] Not available 09/20/2024 14:36:01 learning about high blood pressure [email or web address] Not available 09/20/2024 14:36:01 10/09/2024 [id number] earwax blockage: care instructions [email or web address] Not available 10/09/2024 17:54:31 high blood pressure: care instructions [email or web address] Not available 10/09/2024 10:31:42 learning about high blood pressure [email or web address] Not available 10/09/2024 10:31:42 HIV testing: car e instructions [email or web address] Not available 10/09/2024 10:31:42 Discussed and explained advance directives such as standard forms to the . Face to face discussion lasted for a duration of ___ minutes. Not available 10/09/2024 09:32:47 11/06/2024 [id number] painful urinatio n (dysuria): care instructions [email or web address] Not available 11/06/2024 12:18:29 hypothyroidism: care instructions [email or web address] Not available 11/06/2024 12:47:01 12/25/2024 [id number] deciding about using medicines to quit smoking [email or web address] Not available 12/25/2024 13:43:07 Quitting Tobacco : Care Instructions [email or web address] Not available 12/25/2024 13:43:07 chronic obstructive pulmonary disease (COPD): care instructions [email or web address] Not available 12/25/2024 13:37:52 learning about copd and how to prevent lung infections [email or web address] Not available 12/25/2024 13:37:52 high cholesterol : care instructions Not available 12/25/2024 13:37:53 osteoporosis: care instructions [email or web address] Not available 12/25/2024 13:37:52 chronic pain: care instructions [email or web address] Not available 12/25/2024 13:37:53 high blood pressure: care instructions [email or web address] Not available 12/25/2024 13:37:53 learning about high blood pressure [email or web address] Not available 12/25/2024 13:37:53 learning about mood disorders [email or web address] Not available 12/25/2024 13:37:53 hypothyroidism: care instructions [email or web address] Not available 12/25/2024 13:37:53 Reason for Referral Pain Management Referral for Chronic pain first available appt Referring Physician: [facility], Encounter Date: 09/07/2024 Submarine Cable Equipment Technician Referral for Es sential hypertension first available appt Referring Physician: Alida [facility], Encounter Date: 09/20/2024 Results Created Date Observation Date Name Description Value Unit Range Abnormal Flag Note LastModifiedBy Organization Detail LastModifiedTime 09/07/19 25 09/10/2024 URINE CULTU RE, ROUTI NE urine culture, routine Final report abnormal Not Available [facility] ([facility]) [address] [facility], [place], [address], 09/10/2024 19:07:22 09/07/19 25 09/10/2024 URINE CULTU RE, ROUTI NE result 1 Escher ichia coli abnormal Cefaz josemanuel with an VENKAT <=16 predi cts susce ptibi lity to the oral agent s cefac lawson, cefdi link, cefpo doxim e, cefpr ozil, cefur oxime , cepha lexin , and lorac arbef when used for thera py of uncom plica darlin urina ry tract infec tions due to E. coli, Klebs iella pneum oniae , and Prote us mirab ilis. Multi -Drug Resis tant Organ ism Great er than 100,0 00 colon y formi ng units per mL Not Available [facility] ([facility]) [address] [facility], [place], [address], 09/10/2024 19:07:22 09/07/19 25 09/10/2024 URINE CULTU RE, ROUTI NE antimicrobia l susceptibili ty Commen t S = Susce ptibl e; I = Inter media te; R = Resis tant P = Posit mando; N = Negat mando MICS are expre ssed in micro grams per mL Antib iotic RSLT# 1 RSLT# 2 RSLT# 3 RSLT# 4 Amoxi cilli n/Cla vulan ic Acid I Ampic illin R Cefaz josemanuel S Cefep david S Cefox itin S Cefpo doxim e S Ceftr iaxon e S Cipro floxa angelito R Ertap enem S Genta micin S Levof loxac in R Merop enem S Nitro furan toin S Piper acill in/Ta zobac malone S Tetra cycli ne R Tobra mycin I Trime thopr im/Liu lfa S Not Available [facility] ([facility]) [address] [facility], [place], [address], 09/10/2024 19:07:22 09/07/19 25 09/07/2024 urina lysis , dipst ick Leukocytes Small Not Available [facility] [address] [place] [address], [place], [address], 09/07/2024 09:22:33 09/07/19 25 09/07/2024 urina lysis , dipst ick Nitrite positi ve Not Available [facility] [address] [place] [address], [address], 09/07/2024 09:22:33 09/07/19 25 09/07/2024 urina lysis , dipst ick Urobilinogen .2 Not Available [facility] [address] [place] [address], [place], [address], 09/07/2024 09:22:33 09/07/19 25 09/07/2024 urina lysis , dipst ick Protein 300 Not Available [facility] [address] [place] [address], [place], [address], 09/07/2024 09:22:33 09/07/19 25 09/07/2024 urina lysis , dipst ick pH 6.5 Not Available [address], [address], 09/07/2024 09:22:33 09/07/19 25 09/07/2024 urina lysis , dipst ick Blood Small Not Available [facility] [address] [place] [address], [place], [address], 09/07/2024 09:22:33 09/07/19 25 09/07/2024 urina lysis , dipst ick Specific [place] 1.025 Not Available [address], [place], [address], 09/07/2024 09:22:33 09/07/19 25 09/07/2024 urina lysis , dipst ick Ketone Negati ve Not Available [address], [place], [address], 09/07/2024 09:22:33 09/07/19 25 09/07/2024 urina lysis , dipst ick Bilirubin Negati ve Not Available [address], [place], [address], 09/07/2024 09:22:33 09/07/19 25 09/07/2024 urina lysis , dipst ick Glucose Negati ve Not Available [address], [place], [address], 09/07/2024 09:22:33 09/07/19 25 09/07/2024 urina lysis , dipst ick Appearance Cloudy Not Available [address], [place], [address], 09/07/2024 09:22:33 09/07/19 25 09/07/2024 urina lysis , dipst ick Color Yellow Not Available [address], [place], [address], 09/07/2024 09:22:33 10/10/19 25 10/10/2024 CBC WITH DIFFE RENTARA AL/PL ATELE T WBC 8.0 x10e3 /uL 3.4-10 .8 normal Not Available [facility] ([facility]) [address] [facility], [place], [address], 10/11/2024 21:06:47 10/10/1909 1010/10/2024 CBC WITH DIFFE RENTI AL/PL ATELE T RBC 3.92 x10e6 /uL 3.77-5 .28 normal Not Available [facility] ([facility]) [address] [place], [address], 10/11/2024 21:06:47 10/10/19 25 10/10/2024 CBC WITH DIFFE RENTI AL/PL ATELE T hemoglobin 13.0 g/dL 11.1-1 5.9 normal Not Available [facility] ([facility]) [address] [place], [address], 10/11/2024 21:06:47 10/10/1910/10/2024 CBC WITH DIFFE RENTI AL/PL ATELE T hematocrit 39.7 % 34.0-4 6.6 normal Not Available [facility] ([facility]) [address] [place], [address], 10/11/2024 21:06:47 10/10/1910/10/2024 CBC WITH DIFFE RENTI AL/PL ATELE T MCV 101 fL 79-97 above high normal Not Available [facility] ([facility]) [address] [place], [address], 10/11/2024 21:06:47 10/10/1910/10/2024 CBC WITH DIFFE RENTI AL/PL ATELE T MCH 33.2 pg 26.6-3 3.0 above high normal Not Available [facility] ([facility]) [address] [place], [address], 10/11/2024 21:06:47 10/10/1910/10/2024 CBC WITH DIFFE RENTI AL/PL ATELE T MCHC 32.7 g/dL 31.5-3 5.7 normal Not Available [facility] ([facility]) [address] [place], [address], 10/11/2024 21:06:47 10/10/19 25 10/10/2024 CBC WITH DIFFE RENTI AL/PL ATELE T RDW 11.4 % 11.7-1 5.4 below low normal Not Available [facility] ([facility]) [address] [facility], [place], [address], 10/11/2024 21:06:47 10/10/1910/10/2024 CBC WITH DIFFE RENTI AL/PL ATELE T platelets 298 x10e3 /uL 150-45 0 normal Not Available [facility] ([facility]) [address] [place], [address], 10/11/2024 21:06:47 10/10/1910/10/2024 CBC WITH DIFFE RENTI AL/PL ATELE T neutrophils 65 % not estab. normal Not Available [facility] ([facility]) [address] [facility], [place], [address], 10/11/2024 21:06:47 10/10/1910/10/2024 CBC WITH DIFFE RENTI AL/PL ATELE T lymphs 22 % not estab. normal Not Available [facility] ([facility]) [address] [facility], [place], [address], 10/11/2024 21:06:47 10/10/1910/10/2024 CBC WITH DIFFE RENTI AL/PL ATELE T monocytes 9 % not estab. normal Not Available [facility] ([facility]) [address] [place], [address], 10/11/2024 21:06:47 10/10/1910/10/2024 CBC WITH DIFFE RENTI AL/PL ATELE T eos 2 % not estab. normal Not Available [facility] ([facility]) [address] [place], [address], 10/11/2024 21:06:47 10/10/1910/10/2024 CBC WITH DIFFE RENTI AL/PL ATELE T basos 1 % not estab. normal Not Available [facility] ([facility]) [address] [place], [address], 10/11/2024 21:06:47 10/10/19 25 10/10/2024 CBC WITH DIFFE RENTI AL/PL ATELE T immature cells MANAGER CORPORATE RESPONSIBILITY Not Available [facility] ([facility]) [address] [place], [address], 10/11/2024 21:06:47 10/10/19 25 10/10/2024 CBC WITH DIFFE RENTI AL/PL ATELE T neutrophils (absolute) 5.3 x10e3 /uL 1.4-7. 0 normal Not Available [facility] ([facility]) [address] [place], [address], 10/11/2024 21:06:47 10/10/19 25 10/10/2024 CBC WITH DIFFE RENTI AL/PL ATELE T lymphs (absolute) 1.8 x10e3 /uL 0.7-3. 1 normal Not Available [facility] ([facility]) [address] [place], [address], 10/11/2024 21:06:47 10/10/19 25 10/10/2024 CBC WITH DIFFE RENTI AL/PL ATELE T monocytes(ab solute) 0.7 x10e3 /uL 0.1-0. 9 normal Not Available [facility] ([facility]) [address] [place], [address], 10/11/2024 21:06:47 10/10/19 25 10/10/2024 CBC WITH DIFFE RENTI AL/PL ATELE T eos (absolute) 0.2 x10e3 /uL 0.0-0. 4 normal Not Available [facility] ([facility]) [address] [place], [address], 10/11/2024 21:06:47 10/10/19 25 10/10/2024 CBC WITH DIFFE RENTI AL/PL ATELE T baso (absolute) 0.1 x10e3 /uL 0.0-0. 2 normal Not Available [facility] ([facility]) [address] [facility], [place], [address], 10/11/2024 21:06:47 10/10/19 25 10/10/2024 CBC WITH DIFFE RENTI AL/PL ATELE T immature granulocytes 1 % not estab. Not Available [facility] ([facility]) [address] [facility], [place], [address], 10/11/2024 21:06:47 10/10/19 25 10/10/2024 CBC WITH DIFFE RENTI AL/PL ATELE T immature grans (abs) 0.1 x10e3 /uL 0.0-0. 1 Not Available [facility] ([facility]) [address] [place], [address], 10/11/2024 21:06:47 10/10/19 25 10/10/2024 CBC WITH DIFFE RENTI AL/PL ATELE T NRBC MANAGER CORPORATE RESPONSIBILITY Not Available [facility] ([facility]) [address] [place], [address], 10/11/2024 21:06:47 10/10/19 25 10/10/2024 CBC WITH DIFFE RENTI AL/PL ATELE T hematology comments: MANAGER CORPORATE RESPONSIBILITY Not Available [facility] ([facility]) [address] [place], [address], 10/11/2024 21:06:47 10/10/19 25 10/10/2024 COMP. METAB OLIC PANEL (14) glucose 94 mg/dL 70-99 normal Not Available [facility] ([facility]) [address] [place], [address], 10/11/2024 21:06:48 10/10/19 25 10/10/2024 COMP. METAB OLIC PANEL (14) BUN 13 mg/dL 8-27 normal Not Available [facility] ([facility]) [address] [facility] [place], [address], 10/11/2024 21:06:48 10/10/19 25 10/10/2024 COMP. METAB OLIC PANEL (14) creatinine 1.71 mg/dL 0.57-1 .00 above high normal Not Available [facility] ([facility]) [address] [facility] [place], [address], 10/11/2024 21:06:48 10/10/19 25 10/10/2024 COMP. METAB OLIC PANEL (14) eGFR 32 mL/mi n/1.7 3 >59 below low normal Not Available [facility] ([facility]) [address] [facility] [place], [address], 10/11/2024 21:06:48 10/10/19 25 10/10/2024 COMP. METAB OLIC PANEL (14) BUN/creatini ne ratio 8 12-28 below low normal Not Available [facility] ([facility]) [address] [facility] [place], [address], 10/11/2024 21:06:48 10/10/19 25 10/10/2024 COMP. METAB OLIC PANEL (14) sodium 140 mmol/ L 134-14 4 normal Not Available [facility] ([facility]) [address] [place] [place], [address], 10/11/2024 21:06:48 10/10/19 25 10/10/2024 COMP. METAB OLIC PANEL (14) potassium 3.9 mmol/ L 3.5-5. 2 normal Not Available [facility] ([facility]) [address] [place] [place], [address], 10/11/2024 21:06:48 10/10/19 25 10/10/2024 COMP. METAB OLIC PANEL (14) chloride 106 mmol/ L 96-106 normal Not Available [facility] ([facility]) [address] [place], [address], 10/11/2024 21:06:48 10/10/19 25 10/10/2024 COMP. METAB OLIC PANEL (14) carbon dioxide, total 18 mmol/ L 20-29 below low normal Not Available [facility] ([facility]) [address] [place], [address], 10/11/2024 21:06:48 10/10/19 25 10/10/2024 COMP. METAB OLIC PANEL (14) calcium 9.7 mg/dL 8.7-10 .3 normal Not Available [facility] ([facility]) [address] [place], [address], 10/11/2024 21:06:48 10/10/19 25 10/10/2024 COMP. METAB OLIC PANEL (14) protein, total 6.9 g/dL 6.0-8. 5 normal Not Available [facility] ([facility]) [address] [place], [address], 10/11/2024 21:06:48 10/10/19 25 10/10/2024 COMP. METAB OLIC PANEL (14) albumin 4.5 g/dL 3.9-4. 9 normal Not Available [facility] ([facility]) [address] [place], [address], 10/11/2024 21:06:48 10/10/19 25 10/10/2024 COMP. METAB OLIC PANEL (14) globulin, total 2.4 g/dL 1.5-4. 5 Not Available [facility] ([facility]) [address] [place], [address], 10/11/2024 21:06:48 10/10/19 25 10/10/2024 COMP. METAB OLIC PANEL (14) bilirubin, total <0.2 mg/dL 0.0-1. 2 Not Available [facility] ([facility]) [address] [place], [address], 10/11/2024 21:06:48 10/10/19 25 10/10/2024 COMP. METAB OLIC PANEL (14) alkaline phosphatase 90 IU/L 44-121 normal Not Available [facility] ([facility]) [address] [place], [address], 10/11/2024 21:06:48 10/10/19 25 10/10/2024 COMP. METAB OLIC PANEL (14) AST (SGOT) 16 IU/L 0-40 normal Not Available [facility] ([facility]) [address] [place], [address], 10/11/2024 21:06:48 10/10/19 25 10/10/2024 COMP. METAB OLIC PANEL (14) ALT (SGPT) 11 IU/L 0-32 normal Not Available [facility] ([facility]) [address] [place], [address], 10/11/2024 21:06:48 10/10/19 25 10/10/2024 LIPID PANEL cholesterol, total 137 mg/dL 100-19 9 normal Not Available [facility] ([facility]) [address] [place], [address], 10/11/2024 21:06:48 10/10/19 25 10/10/2024 LIPID PANEL triglyceride s 87 mg/dL 0-149 normal Not Available [facility] ([facility]) [address] [place], [address], 10/11/2024 21:06:48 10/10/19 25 10/10/2024 LIPID PANEL HDL cholesterol 59 mg/dL >39 normal Not Available [facility] ([facility]) [address] [place], [address], 10/11/2024 21:06:48 10/10/19 25 10/10/2024 LIPID PANEL VLDL cholesterol luisito 17 mg/dL 5-40 Not Available [facility] ([facility]) [address] [place], [address], 10/11/2024 21:06:48 10/10/1910/10/2024 LIPID PANEL LDL chol calc ([facility]) 61 mg/dL 0-99 Not Available [facility] ([facility]) [address] [place], [address], 10/11/2024 21:06:48 10/10/1910/10/2024 LIPID PANEL LDL calc comment: MANAGER CORPORATE RESPONSIBILITY Not Available [facility] ([facility]) [address] [place], [address], 10/11/2024 21:06:48 10/10/1910/10/2024 HCV ANTIB ODIN CASCA DE(PC R/GEN O) HCV Ab Reacti ve non reacti ve abnormal Not Available [facility] ([facility]) [address] [place], [address], 10/11/2024 21:06:48 10/10/1910/10/2024 HCV ANTIB ODIN CASCA DE(PC R/GEN O) test information: Commen t The quant itati ve range of this assay is 15 IU/mL to 100 keyla on IU/mL . Not Available [facility] ([facility]) [address] [facility], [place], [address], 10/11/2024 21:06:48 10/10/1910/11/2024 HCV ANTIB ODIN CASCA DE(PC R/GEN O) hepatitis C quantitation HCV Not Detect ed IU/mL Not Available [facility] [facility]) [address] [place], [address], 10/11/2024 21:06:48 10/10/19 25 10/11/2024 HCV ANTIB ODIN CASCA DE(PC R/GEN O) HCV log10 MANAGER CORPORATE RESPONSIBILITY Not Available [facility] ([facility]) [address] [facility], [place], [address], 10/11/2024 21:06:48 10/10/1910/11/2024 HCV ANTIB ODIN CASCA DE(PC R/GEN O) interpretati on: Commen t Posit mando HCV antib odin scree n witho ut the prese nce of HCV RNA is consi stent with a resol nacho past infec tion or a false posit mando HCV antib odin. Consi jay jay repea t testi ng after one month . Not Available [facility] ([facility]) [address] [facility], [place], [address], 10/11/2024 21:06:48 10/10/1910/11/2024 HCV ANTIB ODIN CASCA DE(PC R/GEN O) HCV genotype COMMEN T Not indic ated Not Available [facility] ([facility]) [address] [facility], [place], [address], 10/11/2024 21:06:48 10/10/19 25 10/10/2024 TSH TSH 0.068 uIU/m L 0.450- 4.500 below low normal Not Available [facility] ([facility]) [address] [place], [address], 10/11/2024 21:06:49 10/10/1910/10/2024 VITAM IN D, 25-HY DROXY vitamin D, 25-hydroxy 50.9 NG/mL 30.0-1 00.0 Vitam in D defic iency has been defin ed by the Insti tute of Medic ine and an Endoc rine Socie ty pract ice guide line as a level of serum 25-OH vitam in D less than 20 ng/mL (1,2) . The Endoc rine Socie ty went on to furth er defin e vitam in D insuf ficie ncy as a level betwe en 21 and 29 ng/mL (2). 1. IOM (Inst itute of Medic ine). 2010. Dieta ry refer ence intak es for calci um and D. [place]: [facility] . 2. Calixto [place], Oz saunders [place], Matteo off-F errar i MIRAMONTES, et al. Evalu ation , treat ment, and preve ntion of vitam in D defic iency : an Endoc rine Socie ty clini luisito pract ice guide line. JCEM. 2010; 96(7) :1911 -30. Not Available [facility] ([facility]) [address] [place], [address], 10/11/2024 21:06:49 10/10/1910/10/2024 HIV AB/P2 4 AG WITH REFLE X HIV Ab/P24 Ag screen Non Reacti ve non reacti ve HIV-1 /HIV- 2 antib odies and HIV-1 p24 antig en were NOT detec darlin. There is no labor atory evide nce of HIV infec tion. HIV Negat mando Not Available [facility] ([facility]) [address] [facility], [place], [address], 10/11/2024 21:06:49 11/07/1911/07/2024 TSH TSH 0.157 uIU/m L 0.450- 4.500 below low normal Not Available [facility] ([facility]) [address] [place], [address], 11/10/2024 01:07:22 11/07/1911/10/2024 URINE CULTU RE, ROUTI NE urine culture, routine Final report abnormal Not Available [facility] ([facility]) [address] [place], [address], 11/10/2024 01:07:23 11/07/1911/10/2024 URINE CULTU RE, ROUTI NE result 1 Escher ichia coli abnormal Cefaz josemanuel with an VENKAT <=16 predi cts susce ptibi lity to the oral agent s cefac lawson, cefdi link, cefpo doxim e, cefpr ozil, cefur oxime , cepha lexin , and lorac arbef when used for thera py of uncom plica darlin urina ry tract infec tions due to E. coli, Klebs iella pneum oniae , and Prote us mirab ilis. Multi -Drug Resis tant Organ ism Great er than 100,0 00 colon y formi ng units per mL Not Available [facility] ([facility]) [address] [facility], [place], [address], 11/10/2024 01:07:23 11/07/1911/10/2024 URINE CULTU RE, ROUTI NE antimicrobia l susceptibili ty Commen t S = Susce ptibl e; I = Inter media te; R = Resis tant P = Posit mando; N = Negat mando MICS are expre ssed in micro grams per mL Antib iotic RSLT# 1 RSLT# 2 RSLT# 3 RSLT# 4 Amoxi cilli n/Cla vulan ic Acid I Ampic illin R Cefaz josemanuel S Cefep david S Cefox itin S Cefpo doxim e S Ceftr iaxon e S Cipro floxa angelito R Ertap enem S Genta micin S Levof loxac in R Merop enem S Nitro furan toin S Piper acill in/Ta zobac malone S Tetra cycli ne S Tobra mycin I Trime thopr im/Liu lfa S Not Available [facility] ([facility]) [address] [facility], [place], [address], 11/10/2024 01:07:23 11/07/1911/06/2024 urina lysis , dipst ick Leukocytes Trace Not Available [facility] [address] [place] [address] [facility], [place], [address], 11/06/2024 11:41:13 11/07/19 25 11/06/2024 urina lysis , dipst ick Nitrite positi ve Not Available [facility] [address] [place], [address], 11/06/2024 11:41:13 11/07/19 25 11/06/2024 urina lysis , dipst ick Urobilinogen .2 Not Available [facility] [address] [place], [place] [address] [facility], [place], [address], 11/06/2024 11:41:13 11/07/19 25 11/06/2024 urina lysis , dipst ick Protein 300 Not Available [address], [place], [address], 11/06/2024 11:41:13 11/07/19 25 11/06/2024 urina lysis , dipst ick pH 5.5 Not Available [address], [place], [address], 11/06/2024 11:41:13 11/07/19 25 11/06/2024 urina lysis , dipst ick Blood Small Not Available [address], [place], [address], 11/06/2024 11:41:13 11/07/19 25 11/06/2024 urina lysis , dipst ick Specific [place] 1.030 Not Available [address], [place], [address], 11/06/2024 11:41:13 11/07/19 25 11/06/2024 urina lysis , dipst ick Ketone Negati ve Not Available [address], [address], 11/06/2024 11:41:13 11/07/19 25 11/06/2024 urina lysis , dipst ick Bilirubin Negati ve Not Available [address], [address], 11/06/2024 11:41:13 11/07/19 25 11/06/2024 urina lysis , dipst ick Glucose Negati ve Not Available [facility] [address] [place] [address], [place], [address], 11/06/2024 11:41:13 11/07/19 25 11/06/2024 urina lysis , dipst ick Appearance Slight ly Cloudy Not Available [facility] [address] [place] [address], [place], [address], 11/06/2024 11:41:13 11/07/19 25 11/06/2024 urina lysis , dipst ick Color Yellow Not Available [facility] [address] [place] [address], [place], [address], 11/06/2024 11:41:13 09/22/19 25 09/13/2023 MAMMO , scree renan, bilat eral No observ ation record ed. Not Available 2024 12:17:32 10/06/19 25 09/28/2024 US, duple x, renal arter y No observ ation record ed. [facility] -New Scheduling Process [address] [place] [address], [place], [address], 10/05/2024 12:31:18 10/31/1910/23/2024 DEXA No observ ation record ed. [email or web address] [facility] -New Scheduling Process [address] [place] [address], [place], [address], 10/30/2024 10:37:10 Result Notes None recorded. Problems Name Problem SNOMED Code Status Onset Date Resolution Date Notes Provider Name and Address Organization Details Recorded Time Acute urinary tract infection 675732283 Completed 202410/09/2024 ADOLFO Gutierrez [address] [place] [address], [address], [employer] 12:01:26 Chronic pain 26585526 Active 2024 ADOLFO Gutierrez [address] [place] [address], [address], [employer] 10:35:41 Acute right otitis media 509641783 Completed 202410/09/2024 ADOLFO Gutierrez [address] [place] [address], [address], [employer] 10:35:31 Essential hypertensio n 31184001 Active 2024 ADOLFO Gutierrez [address] [place] [address], [address] 8, [employer] 14:35:45 Chronic obstructive pulmonary disease 79136506 Active 2024 ADOLFO Gutierrez [address] [place] [address], 69548[address]735 8, [employer] 10:35:53 Hyperlipide justin 28844991 Active 2024 ADOLFO Gutierrez [address] [place] [address], [address], [employer] 10:36:00 Gastroesoph ageal reflux disease 906010729 Active 2024 ADOLFO Gutierrez [address] [place] [address], [address] 8, [employer] 10:36:21 Vitamin D deficiency 39638477 Active 2024 ADOLFO Gutierrez [address] [place] [address], 80260[address]896 8, [employer] 10:36:42 Depressive disorder 88483104 Active 2024 ADOLFO Gutierrez [address] [place] [address], 96415-567 8, [employer] 10:36:58 Impacted cerumen 94055969 Active 2024 ADOLFO Gutierrez [address] [place] [address], 41694[address] 8, [employer] 17:54:28 Osteoporosi s 39747715 Active 2024 ADOLFO Gutierrez [address] [place] [address], 74961[address] 8, [employer] 10:36:15 Acute urinary tract infection 656967882 Active 2024 ADOLFO Gutierrez [address] [place] [address], [address] 8, [employer] 12:01:26 Hypothyroid ism 04514602 Active 2024 Alida Garza [address], [address], [employer] 12:38:58 Gastroesoph ageal reflux disease without esophagitis 782048066 Active 2024 ADOLFO Gutierrez [address] [place] [address], 23972[address] 8, [employer] 13:34:44 Senile osteoporosi s 23977063 Active 2024 Alida Garza [address], [address], [employer] 13:36:49 Tobacco dependence syndrome 11606041 Active 2024 ADOLFO Gutierrez [address] [place] [address], [address]73[address]201 8, [employer] 13:42:45 Problem Notes None recorded. Procedures Surgical History Date Name Laterality Status Provider Name and Address Organization Details Recorded Time 10/10/19 25 Cerumen Removal completed ADOLFO Gutierrez [address] [place] [address], [address], [employer] 10/09/2024 17:54:56 09/13/19 24 Most Recent Mammogram completed [facility] [employer] 09/21/2024 12:19:51 03/18/20 Date of Last Pap Smear completed [employer] 09/21/2024 12:19:37 Angioplasty completed [facility] [employer] 09/07/2024 08:57:47 Back Surgery completed [employer] 09/07/2024 08:57:47 Hysterectomy completed [employer] 09/07/2024 08:57:47 Tubal Ligation completed [employer] 09/07/2024 08:57:47 Dilation and Curettage completed [employer] 09/07/2024 08:57:47 Total Hysterectomy completed [employer] 09/07/2024 08:57:47 Stent completed [facility] [employer] 09/07/2024 09:11:45 Imaging Results None recorded. [...] completed Not Available Not Available Not Available [employer] 160 mcg-9mcg-4. 8mcg/actuat ion HFA aerosol inhaler Inhale 2 puffs twice a day by inhalatio n route for 90 days. 2024 active Not Available Not Available Not Avai lable albuterol 90 mcg-budeson dillon 80 mcg/actuati on HFA aerosol inhaler Inhale by inhalatio n route. active Not Available Not Available No t Available Vitals Date Recorded Body weight Oxygen saturation Oxygen saturation in Arterial blood by Pulse oximetry Heart rate Body mass index (BMI) Body height Body temperature Systolic blood pressure Diastolic blood pressure Systolic blood pressure Diastolic blood pressure Systolic blood pressure Diastolic blood pressure Systolic blood pressure Diastolic blood pressure Provider Name and Address Organization Details Last Updated DateTime 5 43686.2 8 g 98 % 98 % 60 /min 26.9 kg/m2 162.56 cm 97.7 [degF] 200 mm[Hg] 82 mm[Hg] 204 mm[Hg] 94 mm[Hg] 202 mm[Hg] 96 mm[Hg] 188 mm[Hg] 90 mm[Hg] [employer] 5 09:50:32 Date Recorded Body height Body mass index (BMI) Body weight Oxygen saturation Oxygen saturation in Arterial blood by Pulse oximetry Heart rate Body temperature Systolic blood pressure Diastolic blood pressure Systolic blood pressure Diastolic blood pressure Systolic blood pressure Diastolic blood pressure Provider Name and Address Organization Details Last Updated DateTime 5 162.56 cm 26.7 kg/m2 48680.9 7 g 98 % 98 % 62 /min 98 [degF] 188 mm[Hg] 80 mm[Hg] 198 mm[Hg] 96 mm[Hg] 200 mm[Hg] 84 mm[Hg] [employer] 5 14:22:04 Date Recorded Body height Body mass index (BMI) Body weight Oxygen saturation Oxygen saturation in Arterial blood by Pulse oximetry Heart rate Body temperature Systolic blood pressure Diastolic blood pressure Systolic blood pressure Diastolic blood pressure Systolic blood pressure Diastolic blood pressure Provider Name and Address Organization Details Last Updated DateTime 5 162.56 cm 25.9 kg/m2 28065.7 3 g 97 % 97 % 58 /min 97.9 [degF] 190 mm[Hg] 80 mm[Hg] 180 mm[Hg] 78 mm[Hg] 178 mm[Hg] 80 mm[Hg] [employer] 5 13:39:19 Date Recorded Body height Body mass index (BMI) Body weight Body temperature Heart rate Oxygen saturation Oxygen saturation in Arterial blood by Pulse oximetry Systolic blood pressure Diastolic blood pressure Systolic blood pressure Diastolic blood pressure Systolic blood pressure Diastolic blood pressure Provider Name and Address Organization Details Last Updated DateTime 162.56 cm 25.7 kg/m2 94559.4 2 g 98.2 [degF] 56 /min 95 % 95 % 166 mm[Hg] 84 mm[Hg] 164 mm[Hg] 82 mm[Hg] 156 mm[Hg] 76 mm[Hg] [employer] 11:18:46 Date Recorded Body height Body mass index (BMI) Body weight Oxygen saturation Oxygen saturation in Arterial blood by Pulse oximetry Heart rate Body temperature Systolic blood pressure Diastolic blood pressure Systolic blood pressure Diastolic blood pressure Systolic blood pressure Diastolic blood pressure Provider Name and Address Organization Details Last Updated DateTime 5 162.56 cm 25 kg/m2 78372.7 7 g 96 % 96 % 58 /min 98 [degF] 154 mm[Hg] 74 mm[Hg] 150 mm[Hg] 86 mm[Hg] 150 mm[Hg] 78 mm[Hg] [employer]. 14:48:59 Social History Question Answer Notes LastModified by Organizat ion Details LastModified Time Tobacco Smoking Status Current Every Day Smoker [employer] 09/07/2024 08:57:46 Do You Have An Advance [...] Information not available 09/07/2024 What Type Of Respiratory Practitioner Do You Use? None Information not available [...] Do You Have A Medical Power Of Advertising Account Manager? No Information not available 09/07/2024 What Was [...] anxious, or unable to sleep at night)? [id number] Information not available 09/07/2024 Do you have [...] Acid Reflux (GERD) Y Thyroid Problems Y Lung Disease Y Asthma Y Depression Y Bladder or Kidney Problems Y High [...] quadrivalent, PF 08/31/2023 completed [facility] null, [employer] 09/07/2024 08:57:57 COVID-19, mRNA, LNP-S, PF, 30 mcg/0.3 mL dose 06/03/2021 completed [facility] null, [employer] 09/07/2024 08:57:57 COVID-19, mRNA, LNP-S, PF, 50 mcg/0.5 mL 08/31/2023 completed [facility] [employer] null, [employer] 09/07/2024 08:57:57 Influenza, split virus, quadrivalent, PF 04/14/2020 completed [facility] [place] - [employer] 09/07/2024 08:57:57 COVID-19, mRNA, LNP-S, PF, 30 mcg/0.3 mL dose 10/29/2020 completed Not Available [facility] 13:03:49 COVID-19, mRNA, LNP-S, PF, 30 mcg/0.3 mL dose 12/03/2020 completed Not Available [facility] 13:03:49 Past Encounters Encounter ID Performer Location Encounter Start Date Encounter Closed Date Diagnosis/Indication Diagnosis SNOMED-CT Code Diagnosis ICD10 Code Diagnosis Note [id number] ADOLFO Gutierrez [address] [address] 09/07/2024 08:42:23 09/07/2024 09:44:13 Dysuria 68836387 R30.0 Acute urin chiqui tract infection 420722680 N39.0 Chronic pain 23460220 G8 9.29 Essential hypertension 47375178 I10 Given 0.1 mg clonidine in office today with improvemen t of BPPatient states she forgot to take her regular meds Acute righ t otitis media 115246649 H66.91 [id number] ADOLFO Gutierrez [address] [address] 09/20/2024 14:12:39 09/20/2024 14:35:31 Essential hypertension 57842348 I10 Currently taking Lisinopril , Metoprolol Will add hydralazin eSon will check BP at home over the weekendRen al artery duplex to check stentsRefe r back to cardiology To ER if severe pain, shortness of breath, chest pain, etc. Body mass index 25-29 - overweight 798382092 Z68.26 [id number] ADOLFO Gutierrez [address] [address] 10/09/2024 09:28:51 10/09/2024 10:54:34 Screening for osteoporosis 725370780 Z13.820 Essential hypertension 66759450 I10 HIV screening 466787833 Z11.4 Hepatitis C screening 41 5963831 Z11.59 Impacted cerumen 3561615 6 H61.21 Irrigated without issues [id number] ADOLFO Gutierrez [facility] [address] [place] [address] 11/06/2024 10:58:39 11/06/2024 12:08:07 Screening for malignant neoplasm of colon 256671581 Z12.[address] imulating hormone level below reference range 598147223 R94.6 Dysuria 90714028 R30.0 Leukocytes in urine 2757 19022 R82.79 Acute urin chiqui tract infection 301571144 N39.0 Hypothyroidism 00689707 E03.9 [id number] ADOLFO Gutierrez [facility] [address] [place] [address] 12/25/2024 12:56:22 12/25/2024 13:45:23 Hypothyroidism 73476530 E03.9 Chronic ob structive pulmonary disease 20083631 J44.9 Depressive disorder 3548 9007 F32.A Chronic pain 26203686 G8 9.29 Essential hypertension 45533158 I10 Hyperlipidemia 17232491 E78.5 Vitamin D deficiency 347 61175 M81.0 Gastroesop hageal reflux disease without esophagitis 768072072 K21.9 Senile osteoporosis 1804 0001 M81.0 Osteoporosis 87301344 M8 1.0 Tobacco de pendence syndrome 93405883 F17.200 Goals Section Goal Description Progress Status [...] Alida Garza Not Available 12/25/2024 17: 47:20 Advance Directives Directive N: Payers Insurance Date Sequence Insurance Name Policy Number Policy Howard Covered Member ID Howard Member ID Guarantor Name 12/25/2024 [place] Jocelyn Clark [id number] Jocelyn Amber 12/25/2024 1 [facility] - HMO) [id number] Jocelyn Mike Amber [id number] Jocelyn Amber Notes Date Note Type Note Provider Name and Address Organization Details Recorded Time 09/07/2024 text/html Patient has had dysuria, frequency X 2-3 days. No nausea or vomiting. No fever.Also has had right ear pain off and on for a month.Has high blood pressure. Forgot meds today. Denies headache, chest pain, vertigo, dyspnea.Patient also states that she used to be in a pain clinic in [place] but had trouble with transportation. ADOLFO Gutierrez [address] [place], [address], [employer] 09/07/2024 11:46:55 09/20/2024 text/html Patient presents to f/u on blood pressure. When we saw her for the first time last month, her blood pressure was elevated but she has not taken her meds. Son states that they have been trying to check it at home and it is staying elevated. Sometimes has headache, blurry vision. No chest pain. Currently taking Lisinopril, Metoprolol. States in the past she was on Amlodipine but it caused a lot of swelling. She has renal artery stents. Has not seen cardiology for a while to have stents checked. Has kidney problems as well. Was on HCTZ at one point. Not sure why it was stopped - unclear if related to kidneys. ADOLFO Gutierrez [address] [place], [address], [employer] 09/20/2024 15:11:48 10/09/2024 text/html Medicare Annual Wellness VisitReported bypatient.Diet and Nutrition:healthy diet Fracture Risk:no history of fractures Physical Activity:discussed weightbearing activities Depression Risk:never feels sad, empty, or tearful; no loss of interest in activities; no significant changes in weight; no thoughts of suicide Orientation:no disorientation to time; no disorientation to date; no disorientation to place Concentration and Memory:no decreased concentrating ability; no memory lapses or loss; does not forget words Hearing:loss of hearing in one ear only Vision:no vision problems Activities of Daily Living:able to bathe with limited or no assistance; able to contol urination and bowels; able to dress with limited or no assistance; able to feed self with limited or no assistance Patient presents for medicare annual wellness examDoing wellCan't hear out of right ear [facility] cardiology last week and they changed her BP meds ADOLFO Gutierrez [address] [place], [address], [employer]. 10/09/2024 17:55:37 11/06/2024 text/html Patient presents for followup. Needs TSH to check Synthroid dose. C/O dysuria for a few days.She has seen several specialists recently. Some of her meds are costly and the specialist appointments are costly. SHe is supposed to have hip injections next week but has to pay almost $400 up front and isn't sure if she can. ADOLFO Gutierrez [address] [place], [address], [employer]. 11/08/2024 15:21:08 12/25/2024 text/html Patient presents for followup.History of hypothyroidism. Stable on Synthroid.History of COPD. She is doing well with Brextri.History of HTN. Has been seeing us as well as cardiology. Blood pressure today is still slightly elevated but is the best it has ever been. Denies headache, chest pain, vertigo, dyspnea. ADOLFO Gutierrez [address] [place], [address], [employer] 12/27/2024 13:20:07 OBGyn Episode No OBEpisode recorded.
== END 2025-01-03 23:59 | disposition home or self-care (01) ==
LOC: RAD 14:15
PROVIDERS: PCP Physician Assistant; Visit Provider Physician Assistant
DX: R91.8 Other nonspecific abnormal finding of lung field (principal); F17.210 Nicotine dependence, cigarettes, uncomplicated
CPT/HCPCS: 71271

== ENCOUNTER 2025-01-24 17:21 | Emergency (ER) | payer MEDICARE, SELFPAY ==
--- OUTSIDE RECORDS SUMMARY | 2020-12-03 07:45 | XMS_ITS | Continuity of Care Document ---
Author Name [facility] Organization [facility] Care Team Providers Care Time Buyer Name Role Phone [facility] Unavailable Unavailable Immunizations Combined list of available immunizations from the Department of Defense and Veterans Affairs facilities. 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
--- OUTSIDE RECORDS SUMMARY | 2024-12-21 13:00 | XMS_ITS | Encounter Summary ---
Author Organization [facility] Address [address] [place] [address] Care Team Providers Care Store Sales Consultant Name Role Phone Ayse Roth APRN Primary Care Provider [phone] Reason for Referral * Consultation (Routine) - Authorized Specialty Diagnoses / Procedures Referred By Contac t Referred To Contact Diagnoses Persistent proteinuria Chronic kidney disease (CKD) stage G3b/A3, moderately decreased glomerular filtration rate (GFR) between 30-44 mL/min/1.73 square meter and albuminuria creatinine ratio greater than 300 mg/g ([facility]) Leobardo Aceves MD [address] [place] [address] Phone: tel: fax: Referral ID Status Reason Start Date Expiration Date V isits Requested Visits Authorized [id number] Authorized 12/21/2024 06/22/2026 1 1 Reason for Visit * Reason Comments Follow-up Encounter Details Date Type Department Care Team (Latest Contact Info) Description 12/21/2024 1:00 PM EDT Office Visit [facility] [address] [place] [address] Leobardo Aceves MD [address] [place] [address] Persistent proteinuria (Primary Dx); Hypertensive chronic kidney disease with stage 1 through stage 4 chronic kidney disease, or unspecified chronic kidney disease; Chronic kidney disease (CKD) stage G3b/A3, moderately decreased glomerular filtration rate (GFR) between 30-44 mL/min/1.73 square meter and albuminuria creatinine ratio greater than 300 mg/g ([facility]/HCC); Chronic kidney disease-mineral and bone disorder (CKD-MBD); Mixed hyperlipidemia Social History Tobacco Use Types Packs/Day Years Used Date Smoking Tobacco: Every Day Cigarettes 1 61.5 Started: 1963 Passive Smoke Exposure: Never Smokeless Tobacco: Never Tobacco Cessation:Ready to Q uit: Not Asked; Counseling Given: Not Answered Alcohol Use Standard Drinks/Week Comments Not Currently 0 (1 standard drink = 0.6 oz pur e alcohol) PHQ-2 Answer Date Recorded Patient Health Questionnaire-2 Score 0 05/21/2024 Comments No Sex and Gender Information Value Date Recorded Sex Assigned at Not on file Legal Sex Female 8:48 PM EDT Gender Identity Not on file Sexual Orientation Not on file documented as of this encounter Last Filed Vital Signs Vital Sign Reading Time Taken Comments Blood Pressure 171/79 12/21/2024 12:51 PM EDT retook 15 minutes later, 155/74 Pulse - - Temperature - - Respiratory Rate 16 12/21/2024 12:5 1 PM EDT Oxygen Saturation 99% 12/21/2024 12: 51 PM EDT Inhaled Oxygen Concentration - - Weight 67.6 kg (149 lb) 12/21/2024 12:5 1 PM EDT Height 160 cm (5' 3 ) 12/21/2024 12:51 PM EDT Body Mass Index 26.39 12/21/2024 12:51 PM EDT documented in this encounter Miscellaneous Notes * Progress Notes - Leobardo Aceves MD - 12/21/2024 1:00 PM EDT Images from the original note were not included. Nephrology Outpatient Clinic Progress Note [facility] [place] Patient: Jocelyn Clark Primary Care Provider: Ayse Roth APRN Referring Provider: Ayse Roth APRN Reason for consult: CKD stage 3b HPI/Subjective Jocelyn Clark is a 69 y.o. female with a PMH of tobacco use disorder, CAD, hypothyroidism, HTN who presents for evaluation of CKD stage 3b Doing better since last visit. Her swelling has improved/resolved. BP is better controlled after changes in medications. Saw cardiology who sitched lisinopril to valsartan. ROS Review of Systems All other systems reviewed and are negative. History: Past Medical History: Diagnosis Date Anxiety disorder, unspecified Anxiety Personal history of other diseases of the circulatory system History of hypertension Personal history of other diseases of the respiratory system History of chronic obstructive lung disease Personal history of other mental and behavioral disorders History of depression Personal history of other specified conditions History of diarrhea Patient Active Problem List Diagnosis Hypertensive chronic kidney disease with stage 1 through stage 4 chronic kidney disease, or unspecified chronic kidney disease CKD (chronic kidney disease) stage 4, GFR 15-29 ml/min ([facility]/HCC) Tobacco use disorder Chronic kidney disease-mineral and bone disorder (CKD-MBD) Mixed hyperlipidemia Coronary artery disease involving menominee coronary artery of menominee heart without angina pectoris Urinary tract infection with hematuria Persistent proteinuria Chronic kidney disease (CKD) stage G3b/A3, moderately decreased glomerular filtration rate (GFR) between 30-44 mL/min/1.73 square meter and albuminuria creatinine ratio greater than 300 mg/g ([facility]) Past Surgical History: Procedure Laterality Date HYSTERECTOMY N/A Hysterectomy from [facility] INCONTINENCE SURGERY N/A Laparoscopic Sling Operation For Stress Incontinence from [facility] TUBAL LIGATION N/A Tubal Ligation from [facility] Family History Problem Relation Name Age of Onset Cardiac disorder Father Stroke Maternal Grandmother Diabetes Other Other cancer Mother Social History Socioeconomic History Marital status: Spouse name: Not on file Number of children: Not on file Years of education: Not on file Highest education level: Not on file Occupational History Not on file Tobacco Use Smoking status: Every Day Current packs/day: 1.00 Average packs/day: 1 pack/day for 61.4 years (61.4 ttl pk-yrs) Types: Cigarettes Start date: 1963 Passive exposure: Never Smokeless tobacco: Never Vaping Use Vaping status: Never Used Substance and Sexual Activity Alcohol use: Not Currently Drug use: Not Currently Types: Marijuana, Oxycodone Comment: Drug use: Marijuana Sexual activity: Not on file Other Topics Concern Not on file Social History Narrative Not on file Social Drivers of Health Financial Resource Strain: Not on file Food Insecurity: Not on file Transportation Needs: Not on file Physical Activity: Not on file Stress: Not on file Social Connections: Not on file Intimate Partner Violence: Not on file Housing Stability: Not on file No Known Allergies Medications: Current Medications: Current Outpatient Medications Medication Instructions albuterol 108 (90 Base) MCG/ACT inhaler 2 puffs, 4 times daily alendronate (Fosamax) 70 MG tablet Take 1 tablet every week by oral route for 90 days, for osteoporosis. amitriptyline (ELAVIL) 25 mg, 4 times daily atorvastatin (LIPITOR) 80 mg, Daily budesonide-formoterol (Symbicort) 80-4.5 MCG/ACT inhaler 2 puffs, ZZ 2 times daily RT Calcium Carb-Cholecalciferol 600-10 MG-MCG tablet 1 tablet, Oral, Daily cholecalciferol (VITAMIN D-3) 2,000 Units, Daily DULoxetine (CYMBALTA) 20 mg, Daily ergocalciferol (VITAMIN D-2) 50,000 Units, Weekly lamoTRIgine (LaMICtal) 100 MG tablet levothyroxine (Synthroid, Levoxyl) 75 MCG tablet Take one tablet (75 mcg) levothyroxine 30-60 minutes before breakfast daily metoprolol tartrate (LOPRESSOR) 100 mg, 2 times daily pantoprazole (PROTONIX) 20 mg, Daily before breakfast valsartan (DIOVAN) 320 mg, Daily verapamil (CALAN) 120 mg, Daily Objective Visit Vitals BP (!) 171/79 (BP Location: Right arm, Patient Position: Sitting, BP Cuff Size: Large adult) Comment: retook 15 minutes later, 155/74 Resp 16 Ht 1.6 m (5' 3 ) Wt 67.6 kg (149 lb) LMP (LMP Unknown) SpO2 99% BMI 26.39 kg/m?? OB Status Postmenopausal Smoking Status Every Day BSA 1.73 m?? Resp: [16] 16 BP: (171)/(79) 171/79 Physical Exam: Physical Exam Constitutional: General: She is not in acute distress. Appearance: Normal appearance. She is normal weight. She is not ill-appearing. HENT: Head: Normocephalic. Right Ear: External ear normal. Left Ear: External ear normal. Nose: Nose normal. Mouth/Throat: Mouth: Mucous membranes are moist. Pharynx: Oropharynx is clear. Eyes: Conjunctiva/sclera: Conjunctivae normal. Pulmonary: Effort: Pulmonary effort is normal. Musculoskeletal: General: Normal range of motion. Right lower leg: No edema. Left lower leg: No edema. Right ankle: No swelling. Left ankle: No swelling. Right foot: No swelling. Left foot: No swelling. Skin: General: Skin is warm and dry. Capillary Refill: Capillary refill takes less than 2 seconds. Neurological: General: No focal deficit present. Mental Status: She is alert and oriented to person, place, and time. Psychiatric: Mood and Affect: Mood normal. Behavior: Behavior normal. Thought Content: Thought content normal. Judgment: Judgment normal. Laboratory: LAB RESULTS Renal Panel: Lab Results Component Value Date NA 135 (L) 03/17/2017 K 3.8 03/17/2017 CL 95 (L) 03/17/2017 CO2 23 03/17/2017 BUN 23 03/17/2017 CREATININE 1.57 (H) 03/17/2017 EGFR 33 (L) 03/17/2017 EGFR 41 (L) 03/17/2017 CA 10.0 03/17/2017 ALBUMIN 3.6 03/17/2017 MBD: Lab Results Component Value Date CA 10.0 03/17/2017 VITAMIN D 25 No results found for: VITD25 VITAMIN D 1,25 No results found for: VITD32 PTHRP No results found for: PLASMA Paraproteinemia Labs: No results found for: SPEP , KAPPALAMBDA Nutritional: No results found for: PREALBUMIN , VITD25 Endocrine profile: Lab Results Component Value Date TSH 0.09 (L) 10/08/2024 FREET4 2.1 (H) 10/08/2024 Urine studies: No results found for: CAR , CAUR , CALCIUMUR , PHOSUR , [id number] , [id number] , CREATUR CBC: Lab Results Component Value Date WBC 10.3 03/17/2017 RBC 3.97 03/17/2017 HGB 12.5 03/17/2017 HCT 37.4 03/17/2017 PLT 296 03/17/2017 MCV 94 03/17/2017 MCH 31.5 03/17/2017 MCHC 33.4 03/17/2017 RDW 12.3 03/17/2017 Iron studies: No results found for: FERRITIN , IRON , IRONSAT , TIBC Bone Turnover Markers: No results found for: BSAP , CTELOX , NTELOPEPTS , OSTEOCALCIN Labs 07/25/2024 RFP: Na 137, K 3.9, Cl 107, CO2 20, BUN 12, Cr 1.7, EGFR 30, Ca 9.2, Phos 3.6, Alb 4.0 PTH 114, Vit d 71 UA 2+ protein, 3-5 RBC UPCR: 244/97, UACR: 907mg/L /97 mg/dL Cr 132, C4 28 Urine culture 07/27/24: ding sensitive E. Coli 10/19/24 CBC: WBC 10.5, HGB 13.0, PLT 265 RFP: Na 139, K 3.7, Cl 108, CO2 21, BUN 16, Cr 1.8, GFR 28, Glu 100, Ca 10.0 Imaging: No recent renal imaging to review Impression & Plan: #CKD Stage 3b/4 - STABLE Etiology: Suspect multifactorial, long-standing untreated HTN, tobacco use disorder, microvascular disease Baseline cr: 1.7-1.9. most recent cr 1.8 eGFR 30 No major issues with acid/base, electrolytes or fluid status Anatomy: presumably normal Urine: +UTI on last ua, difficult to interpret, proteinuria is perisstent now on 2 Uas Risk factor reduction to slow progression of disease: -BP control goal <130/80 - at goal -Tobacco use cessation --> counseled patient to avoid smoking cigarette sor at least decrease total number of cigs/day -RASi: Valsartan 320 mg -SGLT2: frequent UTIs maybe a sub optimal candidate -recommend low sodium diet #HTN in CKD -Controlled, most recent home recording 110/60 -ON amlodipine 10mg and metoprolol succinate -STOP amlodipine today aug 03 and start lisniopril -having ankle swelling on amlodipine #Anemia in CKD -No anemia on recent labs #CKD Bone and Mineral Disease #Hyperparathyroidism -PTH 274 --> 114 improved -Calcium and phosphorous are wnl and she does not have kidney stones #Hyperlipidemia in CKD #Coronary artery disease -patient is on statin and plavix #Recurrent UTIs -E. Coli sensitive to cephalosporin on Urine culture 07/27/2024 - start 10 day course of Cefdinir -continue vaginal estrogen cream Recommendations and plan: -Kidney function stable cr 1.8 eGFR 28. She is on the border of CKD4 and CKD 3b. She has significant proteinuria --> now on Valsartan 320mg daily with better BP control - Not a good candidate for SGLT2 inhibitors given history of bad UTIs - Continue monitoring proteinuria if remains above 1g/day may consider Finerenone (Kerendia) or Spironolactone if she still has high BP -Continue to avoid NSAIDs -Continue to try to stop Smoking cigarettes -Continue vaginal estrogen cream for UTI prevention RTC in 4 months Leobardo Aceves MD Division of Nephrology [facility] ORDERS PLACED THIS ENCOUNTER Orders Placed This Encounter Procedures Albumin-creatinine ratio, urine, random Standing Status: Future Expected Date: 04/20/2025 Expiration Date: 06/24/2026 Release to patient in [facility]: Immediate Renal Function Panel, Plasma Standing Status: Future Expected Date: 04/20/2025 Expiration Date: 06/24/2026 Release to patient in [facility]: Immediate CBC W/O Differential Standing Status: Future Expected Date: 04/20/2025 Expiration Date: 06/24/2026 Release to patient in [facility]: Immediate Protein, Random, Urine with Creatinine Standing Status: Future Expected Date: 04/20/2025 Expiration Date: 06/24/2026 [facility] Urinalysis with reflex microscopic (Culture NOT Included) Standing Status: Future Expected Date: 04/20/2025 Expiration Date: 06/24/2026 Release to patient in [facility]: Immediate Follow Up Nephrology [facility] Standing Status: Future Expected Date: 04/22/2025 Expiration Date: 01/20/2026 Referral Priority: Routine Referral Type: Consultation Number of Visits Requested: 1 Problem List Items Addressed This Visit Hypertensive chronic kidney disease with stage 1 through stage 4 chronic kidney disease, or unspecified chronic kidney disease Relevant Medications Calcium Carb-Cholecalciferol 600-10 MG-MCG tablet Other Relevant Orders Albumin-creatinine ratio, urine, random Renal Function Panel, Plasma CBC W/O Differential Protein, Random, Urine with Creatinine Urinalysis with reflex microscopic (Culture NOT Included) Chronic kidney disease-mineral and bone disorder (CKD-MBD) Relevant Medications Calcium Carb-Cholecalciferol 600-10 MG-MCG tablet Mixed hyperlipidemia Persistent proteinuria - Primary Relevant Medications Calcium Carb-Cholecalciferol 600-10 MG-MCG tablet Other Relevant Orders Follow Up Nephrology Albumin-creatinine ratio, urine, random Renal Function Panel, Plasma CBC W/O Differential Protein, Random, Urine with Creatinine Urinalysis with reflex microscopic (Culture NOT Included) Chronic kidney disease (CKD) stage G3b/A3, moderately decreased glomerular filtration rate (GFR) between 30-44 mL/min/1.73 square meter and albuminuria creatinine ratio greater than 300 mg/g (CMS/HCC) Relevant Medications Calcium Carb-Cholecalciferol 600-10 MG-MCG tablet Other Relevant Orders Follow Up Nephrology documented in this encounter Plan of Treatment Scheduled Orders Name Type Priority Associated Diagnoses Orde r Schedule Albumin-creatinine ratio, urine, random Lab Routine Persistent proteinuria Hypertensive chronic kidney disease with stage 1 through stage 4 chronic kidney disease, or unspecified chronic kidney disease Expected: 04/20/2025 (Approximate), Expires: 06/24/2026 Renal Function Panel, Plasma Lab Routine Persistent proteinuria Hypertensive chronic kidney disease with stage 1 through stage 4 chronic kidney disease, or unspecified chronic kidney disease Expected: 04/20/2025 (Approximate), Expires: 06/24/2026 CBC W/O Differential Lab Routine Persistent proteinuria Hypertensive chronic kidney disease with stage 1 through stage 4 chronic kidney disease, or unspecified chronic kidney disease Expected: 04/20/2025 (Approximate), Expires: 06/24/2026 Protein, Random, Urine with Creatinine Lab Routine Persistent proteinuria Hypertensive chronic kidney disease with stage 1 through stage 4 chronic kidney disease, or unspecified chronic kidney disease Expected: 04/20/2025 (Approximate), Expires: 06/24/2026 Urinalysis with reflex microscopic (Culture NOT Included) Lab Routine Persistent proteinuria Hypertensive chronic kidney disease with stage 1 through stage 4 chronic kidney disease, or unspecified chronic kidney disease Expected: 04/20/2025 (Approximate), Expires: 06/24/2026 Scheduled Referrals Name Type Priority Associated Diagnoses Orde r Schedule Follow Up Nephrology Outpatient Referral Routine Persistent proteinuria Chronic kidney disease (CKD) stage G3b/A3, moderately decreased glomerular filtration rate (GFR) between 30-44 mL/min/1.73 square meter and albuminuria creatinine ratio greater than 300 mg/g (CMS/HCC) Expected: 04/22/2025 (Approximate), Expires: 01/20/2026 documented as of this encounter Visit Diagnoses Diagnosis Persistent proteinuria- Primary Hypertensive chronic kidney disease with stage 1 through stage 4 chronic kidney disease, or unspecified chronic kidney disease Chronic kidney disease (CKD) stage G3b/A3, moderately decreased glomerular filtration rate (GFR) between 30-44 mL/min/1.73 square meter and albuminuria creatinine ratio greater than 300 mg/g ([facility]) Chronic kidney disease-mineral and bone disorder (CKD-MBD) Mixed hyperlipidemia documented in this encounter Additional Health Concerns Assessment Noted Time A fall risk assessment has been complete d for the patient 10/08/2024 8:52 AM EDT A Body Mass Index follow-up plan has been documented for the patient 12/21/2024 1:16 PM EDT documented as of this encounter Care Teams Store Sales Consultant Relationship Specialty Start Date End Date Ayse Roth APRN [address] [place] [address] PCP - General 04/05/24 documented as of this encounter
--- OUTSIDE RECORDS SUMMARY | 2025-01-16 06:12 | XMS_ITS | Continuity of Care Document ---
[facility] Phone Care Team Providers Care Beater And Pulper Feeder Name Role Phone BERTA SAAB Unavailable BERTA SAAB Admitting BERTA SAAB Primary Attending [phone] Taya BURTON Primary Care ALLERGIES AND ADVERSE REACTIONS ALLERGIES AND ADVERSE REACTIONS Code System Allergy Substance Adverse Reaction Date Reaction (Severity) Comment Status Reported By Updated By No Known Allergies [id number] on December 11, 2019 10:33:14 AM [facility] FAMILY HISTORY RELATION: Father Status: Cause of [...] Status: LIVING SNOMED-CT Diagnosis Age At Onset [id number] Alcoholic family member MEDICATIONS HOME MEDICATIONS Status RXNORM [facility] Medication Dose Route Frequency Dates Comments Reported By Updated By Active [id number] 85738 58499 1 atorvastatin calcium (LIPITOR) 40.0 MG ORAL DAILY Last Dose: High cholestero l; home med [id number] on November 08, 2024 3:26:41 PM [facility] Active 755365 04360 66354 0 levothyroxin e (SYNTHROID) 100.0 MCG ORAL DAILY@7 Last Dose: for TSH 24.95 started by Hugh Mejia APRN during hospitaliz ation [id number] on November 08, 2024 3:26:41 PM [facility] Active 824566 74111 54429 1 metoprolol tartrate(LOP RESSOR) 100.0 MG ORAL DAILY Last Dose: home med [id number] on November 08, 2024 3:26:42 PM [facility] Active 332212 85810 24136 5 OLANZapine (ZYPREXA ZYDIS) 5.0 MG ORAL BEDTIME Last Dose: NOT ZYDIS-plea se give tablets [id number] on November 08, 2024 3:26:42 PM [facility] Active 626704 93983 39158 5 OLANZapine (ZYPREXA ZYDIS) 2.5 MG ORAL DAILY Last Dose: 1/2 tab daily (NOT ZYDIS) please give tablets [email or web address] on November 08, 2024 3:26:42 PM [facility] DISCHARGE MEDICATIONS Status RXNORM NDC Medication Dose Route Frequency Dates Comments Physician Updated By No Discharge Medication Info rmation Available INPATIENT MEDICATIONS Status RXNORM NDC Medication Dose Route Frequency Rat e Quantity Dates Comments Physician Updated By No Inpatient Medication Info rmation Available SOCIAL HISTORY SOCIAL HISTORY SNOMED-CT Social History Element Description Effective Dates Offered Cessation Comment UpdatedBy [id number] Historical Tobacco smoking status Current Every Day Smoker Start: July 11, 1962 5:00:00 AM [facility] Refused [id number] on December 06, 2019 7:33:53 PM [facility] SOCIAL HISTORY - Gender Sex: Female SOCIAL [...] value for each vital sign as of January 16, 2025 10:12:21 AM [facility] Loinc Code Vital Sign Activity Date Result Updated By 8302-2 Body height November 08, 2024 3:26:19 PM [facility] 157.48 cm (62.0 in) [email or web address] on November 08, 2024 3:26:19 PM [facility] 37013-3 Body mass index (BMI) [Ratio] November 08, 2024 3:26:19 PM [facility] 27.661 kg/m2 3140-1 Body Surface Area Derived From Formula November 08, 2024 3:26:19 PM [facility] 1.6974 m2 80336-5 Body weight Measured November 08 3:26:19 PM [place] 68.6 kg (151.0 lb) [id number] on November 08, 2024 3:26:19 PM [facility] PEDIATRIC GROWTH CHART - VITAL SIGNS This [...] T12-L2 Admission December 13, 2024 6:19:[address] [address] Discharge December 13, 2024 6:19:00 PM [facility] DISC HARGED TO HOME OR SELF CARE ENCOUNTER DIAGNOSES Notes information is not tank ilable. Code System Diagnosis Onset Date Diagnosis information is not available. ABSTRACT DIAGNOSES Code System Diagnosis Updated By Z53.9 ICD10 PROCEDURE AND TR EATMENT NOT CARRIED OUT, UNSPECIFIED REASON [id number] on January 16, 2025 10:11:53 AM [facility] Z53.9 ICD10 PROCEDURE AND TR EATMENT NOT CARRIED OUT, UNSPECIFIED REASON [id number] on January 16, 2025 10:11:54 AM [facility] CARE TEAM Care Beater And Pulper Feeder Role BERTA SAAB Referring BERTA SAAB Admitting BERTA SAAB Primary Attending Taya BURTON Primary Care CARE TEAM CARE delivery lead Role on Team Status Start Date End Date Update d By JOSEPHINE MATA PCP normal October 31 2:18:51 PM [facility] December 13, 2024 4:00:00 AM [facility] [id number] on October 31, 2024 2:18:51 PM [facility] MD Referring normal October 31, 2024 2:18:51 PM [facility] December 13, 2024 4:00:00 AM [facility] [id number] on October 31, 2024 2:18:51 PM [facility] MD Attending normal October 31, 2024 2:18:51 PM [facility] December 13, 2024 4:00:00 AM [facility] [id number] on October 31, 2024 2:18:51 PM [facility] MD Admitting normal October 31, 2024 2:18:51 PM [facility] December 13, 2024 4:00:00 AM [facility] [id number] on October 31, 2024 2:18:51 PM [facility]
--- OUTSIDE RECORDS SUMMARY | 2025-01-24 18:06 | XMS_ITS ---
Author Organization Unknown Patient Care team information Name Category Status Period Participants - - Proposed period not known -
--- OUTSIDE RECORDS SUMMARY | 2025-01-24 18:06 | XMS_ITS | Encounter Summary ---
Author Organization [facility] Address [address] [place] [address] Care Team Providers Care Factory Focus Technician Name Role Phone Ayse Roth APRN Primary Care Provider [phone] Encounter Details Date Type Department Care Team [...] as of this encounter Plan of Treatment Not on file documented as of this encounter Visit Diagnoses Not on filedocumented in this encounter Additional Health Concerns Assessment Noted Time A fall risk assessment has been complete d for the patient 10/08/2024 8:52 AM EDT A Body Mass Index follow-up plan has been documented for the patient 12/21/2024 1:16 PM EDT documented as of this encounter Care Teams Factory Focus Technician Relationship Specialty Start Date End Date Ayse Roth APRN [address] [place] [address] PCP - General 04/05/24 documented as of this encounter
--- OUTSIDE RECORDS SUMMARY | 2025-01-24 18:06 | XMS_ITS | Encounter Summary ---
Author Organization Healthcare Address [address] [place] [address] Care Team Providers Care Financial Services Counselor Name Role Phone Shadi Montoya MD Primary Care Provider Ayse Roth APRN Primary Care Provider [phone] Encounter Details Date Type Department Care Team ([facility] st Contact Info) Description 01/28/2023 Orders Only External Location [address] [place] [address] Provider, External Social History Tobacco Use Types [...] on file documented as of this encounter Procedures Procedure [...] on filedocumented in this encounter Care Teams Financial Services Counselor Relationship Specialty Start Date End Date Shadi Montoya MD [address] [place] [id number] PCP - General 11/28/20 04/04/24 Ayse Roth APRN [address] [place] [address] PCP - General 04/05/24 documented as of this encounter
--- OUTSIDE RECORDS SUMMARY | 2025-01-24 18:06 | XMS_ITS | Encounter Summary ---
Author Organization [facility] Address [address] [place] [address] Care Team Providers Care Youth Court Judge Name Role Phone Ayse Roth APRN Primary Care Provider [phone] Encounter Details Date Type Department Care Team (Late st Contact Info) Description 10/10/2024 Results Follow-Up Professional [facility] [address], [address] [place] [address] Jenelle Burt MD [address] [facility] [address] [place] [address] Social History Tobacco Use Types [...] as of this encounter Care Teams Youth Court Judge Relationship Specialty Start Date End Date Ayse Roth APRN [address] [place] [address] PCP - General 04/05/24 documented as of this encounter
--- OUTSIDE RECORDS SUMMARY | 2025-01-24 18:07 | XMS_ITS | Continuity of Care Document ---
Author Organization [facility] Address [address] [place] [address] Care Team Providers Care Media Analyst Name Role Phone [facility] Pain Manag ement [phone] [facility] Ic Design Manager JANETTE ALVAREZ Community Health Worker ALIDA GARZA Primary Care Provider RAYNA Hurley Military Analyst Assessment No assessment recorded. Plan of Treatment Reminders Order Date Submit Date Provider Last Modified By Organization Details Last Modified Time Details Appointments FOLLOW UP 30 2024 01:00P M Alida Garza PA-C Not available Not available Not available Lab None recorded. Referral None recorded. Procedures None recorded. Surgeries None recorded. Imaging LDCT, chest, for lung cancer screening 2024 025 [facility] Scheduling Department -New Scheduling Process, [address] [place] [address] [address], [place], [address], 01/10/2025 11:08:59 Medication Orders Fosamax 70 mg tablet 2024 025 [facility], [address] [place], [id number], 12/25/2024 13:38:12 Calcium 600 + D(3) 600 mg-10 mcg (400 unit) tablet 2024 025 [facility]21, [address], [place], [id number], 12/25/2024 13:38:34 Breztri Aerospher e 160 mcg-9mcg- 4.8mcg/ac tuation HFA aerosol inhaler 2024 025 [facility] #14680, [address], [place], [id number], 12/25/2024 13:38:31 atorvasta tin 10 mg tablet 2024 025 [facility] #52268, [address], [place], [id number], 12/25/2024 17:44:38 pantopraz ole 40 mg tablet,de layed release 2024 025 [facility] #33691, [address], [place], [id number], 12/25/2024 13:38:26 metoprolo l tartrate 100 mg tablet 2024 025 [facility] #95324, [address], [place], [id number], 12/25/2024 13:38:41 hydralazi ne 25 mg tablet 2024 025 [facility] #29319, [address], [place], [id number], 12/25/2024 13:38:38 valsartan 320 mg tablet 2024 025 [facility] #10612, [address], [place], [id number], 12/25/2024 13:43:02 verapamil ER (SR) 120 mg tablet,ex tended release 2024 025 [facility] #78960, [address], [place], [id number], 12/25/2024 17:46:48 duloxetin e 60 mg capsule,d elayed release 2024 025 [facility] #89935, [address] [place], [place], [id number], 12/25/2024 13:38:07 lamotrigi ne 200 mg tablet 2024 025 [facility] #80248, [address] [place], [place], [id number], 12/25/2024 13:38:36 levothyro xine 75 mcg tablet 2024 025 [facility] #42821, [address] [place], [place], [id number], 12/25/2024 17:46:16 Patient TargetsNo targets recorded. Patient Instructions Encounter Date Encounter Id Patient Instructions Last Modified By Organization Details Last Modified Time 12/25/2024 [id number] deciding about using medicines to quit smoking [email or web address] Not available 12/25/2024 13:43:07 Quitting Tobacco : Care Instructions [email or web address] Not available 12/25/2024 13:43:07 chronic obstructive pulmonary disease (COPD): care instructions [email or web address] Not available 12/25/2024 13:37:52 learning about copd and how to prevent lung infections [email or web address] Not available 12/25/2024 13:37:52 high cholesterol : care instructions Not available 12/25/2024 13:37:53 osteoporosis: care instructions [id number] Not available 12/25/2024 13:37:52 chronic pain: care instructions Not available 12/25/2024 13:37:53 high blood pressure: care instructions [id number] Not available 12/25/2024 13:37:53 learning about high blood pressure [email or web address] Not available 12/25/2024 13:37:53 learning about mood disorders [email or web address] Not available 12/25/2024 13:37:53 hypothyroidism: care instructions [email or web address] Not available 12/25/2024 13:37:53 Reason for Referral None Reported. Results Created Date Observation Date Name Description Value Unit Range Abnormal Flag Note LastModifiedBy Organization Detail LastModifiedTime 01/11/2001/03/2025 LDCT, chest , for lung misha urrutia No observ ation record ed. [facility] Scheduling Department -New Scheduling Process [address], [place], [address], 01/10/2025 16:30:35 Result Notes None recorded. Problems Name Problem SNOMED Code Status Onset Date Resolution Date Notes Provider Name and Address Organization Details Recorded Time Acute urinary tract infection 743890495 Completed 202410/09/2024 ADOLFO Gutierrez [address] [place] [address], [address] 8, [employer] 14:22:06 Chronic pain 23438514 Active 2024 ADOLFO Gutierrez [address] [place] [address], [address] 8, [employer] 10:35:41 Acute right otitis media 021757619 Completed 202410/09/2024 ADOLFO Gutierrez [address] [place] [address], [address] 8, [employer] 10:35:31 Essential hypertensio n 79354843 Active 2024 ADOLFO Gutierrez [address] [place] [address], 20991[address]266 8, [employer] 14:35:45 Chronic obstructive pulmonary disease 48244487 Active 2024 ADOLFO Gutierrez [address] [place] [address], [address]42[address] 8, [employer] 10:35:53 Hyperlipide justin 27905376 Active 2024 ADOLFO Gutierrez [address] [place] [address], 17[address]718 8, [employer] 10:36:00 Gastroesoph ageal reflux disease 535667516 Active 2024 ADOLFO Gutierrez [address] [place] [address], 524[address]397 8, [employer] 5 10:36:21 Vitamin D deficiency 71459374 Active 2024 ADOLFO Gutierrez [address] [place] [address], 99427-315 8, [employer] 5 10:36:42 Depressive disorder 69658771 Active 2024 ADOLFO Gutierrez [address] [place] [address], 15446[address]447 8, [employer] 5 10:36:58 Impacted cerumen 24831784 Active 2024 ADOLFO Gutierrez [address] [place] [address], 380[address] 8, [employer] 5 17:54:28 Osteoporosi s 11449141 Active 2024 ADOLFO Gutierrez [address] [place] [address], 27959-699 8, [employer] 5 10:36:15 Acute urinary tract infection 953610201 Active 2024 ADOLFO Gutierrez [address] [place] [address], 62394-742 8, [employer] 5 14:22:06 Hypothyroid ism 77331702 Active 2024 ADOLFO Gutierrez [address] [place] [address], 21821[address]870 8, [employer] 5 12:38:58 Gastroesoph ageal reflux disease without esophagitis 944223936 Active 2024 ADOLFO Gutierrez [address] [place] [address], 00805-023 8, [employer] 5 13:34:44 Senile osteoporosi s 69849263 Active 2024 ADOLFO Gutierrez [address] [place] [address], 36[address]-551 8, [employer] 5 13:36:49 Tobacco dependence syndrome 67310111 Active 2024 ADOLFO Gutierrez [address] [place] [address], 63635-942 8, [employer] 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 14:22:12 Problem Notes None recorded. Procedures Surgical History Date Name Laterality Status Provider Name and Address Organization Details Recorded Time 10/10/19 25 Cerumen Removal completed ADOLFO Gutierrez [address] [place] [address], [address], [employer] 10/09/2024 17:54:56 09/13/19 24 Most Recent Mammogram completed [employer] 09/21/2024 12:19:51 03/18/20 20 Date of Last Pap Smear completed [employer] 09/21/2024 12:19:37 Angioplasty completed [employer] [facility] 09/07/2024 08:57:47 Back Surgery completed [employer] 09/07/2024 08:57:47 Hysterectomy completed [email or web address] 09/07/2024 08:57:47 Tubal Ligation completed [employer] 09/07/2024 08:57:47 Dilation and Curettage completed [employer] 09/07/2024 08:57:47 Total Hysterectomy completed [employer] 09/07/2024 08:57:47 Stent completed [employer] 09/07/2024 09:11:45 Imaging Results None recorded. Procedure Notes None recorded. Medical Equipment None Reported. Allergies No known drug allergies Medications Name Sig Start Date Stop Date Status Note LastModified by Organization Details LastModified Time verapamil ER (SR) 120 mg tablet,exte nded release Take 1 tablet twice a day by oral route for 90 days. 12/25 completed Not Available Not Available Not Available atorvastati n 80 mg tablet TAKE 1 [...] Not Available Not Available No t Available clopidogrel 75 mg tablet 09/07 completed Not [...] Not Available levothyroxi ne 75 mcg tablet Take 1 tablet every day by oral route for 90 days, for hypothyro idism. 12/25 completed Not Available Not Available Not Available Macrobid 100 mg capsule Take 1 capsule every 12 hours by oral route for 7 days. 2024 active Not Available Not Available Not Avai lable levothyroxi ne 100 mcg tablet 11/06 completed [...] mg tablet TAKE 1 TABLET BY MOUTH ONCE DAILY active Not Available Not Available No [...] Not Available Not Available No t Available hydrochloro thiazide 12.5 mg tablet 09/07 completed Not Available Not Available Not Available budesonide- formoterol HFA 80 mcg-4.5 mcg/actuati on aerosol inhaler INHALE 2 PUFFS BY MOUTH TWICE DAILY RINSE MOUTH AFTER EACH USE 12/25 completed Not Available Not Available Not Available cholecalcif daniel (vitamin D3) 1,250 mcg (50,000 unit) capsule TAKE 1C BY MOUTH ONCE WEEKLY FOR VITAMIN DEFICIENC Y 09/20 completed Not Available Not Available Not Available Vitamin D3 50 mcg (2,000 unit) tablet TAKE 1 TABLET BY MOUTH EVERY DAY active Not Available Not Available No t Available Breztri [employer] 160 mcg-9mcg-4. 8mcg/actuat ion [...] Pulse oximetry Heart rate Body temperature Systolic And Diastolic Systolic And Diastolic Systolic And Diastolic Provider Name and Address Organization Details Last Updated DateTime 5 162.56 cm 25 kg/m2 44069.7 7 g 96 % 96 % 58 /min 98 [degF] 154/74 mm[Hg] 150/86 mm[Hg] 150/78 mm[Hg] [facility] [employer] 5 14:48:59 Social History Question Answer Notes LastModified by Organizat ion Details LastModified Time Tobacco Smoking Status Current Every Day Smoker [employer] 09/07/2024 08:57:46 Do You Have An Advance [...] Information not available 09/07/2024 What Type Of Crochet Beader Do You Use? None Information not available [...] Do You Have A Medical Power Of Commercial Energy Rater? No Information not available 09/07/2024 What Was [...] anxious, or unable to sleep at night)? [id number] Information not available 09/07/2024 Do you have [...] quadrivalent, PF 08/31/2023 completed [employer], [employer] 09/07/2024 08:57:57 COVID-19, mRNA, LNP-S, PF, 30 mcg/0.3 mL dose 06/03/2021 completed [employer] null, [employer] 09/07/2024 08:57:57 COVID-19, mRNA, LNP-S, PF, 50 mcg/0.5 mL 08/31/2023 completed [employer] null, [employer] 09/07/2024 08:57:57 Influenza, split virus, quadrivalent, PF 04/14/2020 completed [employer] null, [employer] 09/07/2024 08:57:57 COVID-19, mRNA, LNP-S, PF, 30 mcg/0.3 mL dose 10/29/2020 completed Not Available [facility] 13:03:49 COVID-19, mRNA, LNP-S, PF, 30 mcg/0.3 mL dose 12/03/2020 completed Not Available [facility] 13:03:49 Past Encounters Encounter ID Performer Location Encounter Start Date Encounter Closed Date Diagnosis/Indication Diagnosis SNOMED-CT Code Diagnosis ICD10 Code Diagnosis Note [id number] ADOLFO Gutierrez [facility] [address] [place], [place] [address] [address] 12/25/2024 12:56:22 12/25/2024 13:45:23 Hypothyroidism 32873844 E03.9 Chronic ob structive pulmonary disease 95186615 J44.9 Depressive disorder 3548 9007 F32.A Chronic pain 06316075 G8 9.29 Essential hypertension 75302669 I10 Hyperlipidemia 89704479 E78.5 Vitamin D deficiency 347 26917 M81.0 Gastroesop hageal reflux disease without esophagitis 975611527 K21.9 Senile osteoporosis 1804 0001 M81.0 Osteoporosis 90558063 M8 1.0 Tobacco de pendence syndrome 38540772 F17.200 Goals Section Goal Description Progress Status [...] Howard Member ID Guarantor Name 12/25/2024 1 [employer] [place]/A DVANTAGE - HMO) [id number] Jocelyn Clark [id number] Jocelyn Clark Notes Date Note Type [...] headache, chest pain, vertigo, dyspnea. ADOLFO Gutierrez [address] [place] [address], [address], [facility] [employer] 12/27/2024 13:20:07 OBGyn Episode No OBEpisode recorded.
--- OUTSIDE RECORDS SUMMARY | 2025-01-24 18:07 | XMS_ITS | Data Portability ---
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 As documented in the signed controlled [...] of developing and presence of these conditions). [email or web address] Not available 10/02/2024 16:32:06 10/16/2024 10/16/2024 Images reviewed previously lumbarMRI 2009: moderate to severe DDD, multilevel disc space narrowing, multilevel facet hypertrophy Images reviewed today [id number]/27/ 2025: Severe DDD, previous hardware appreciated, multilevel [...] and reviewed: reviewed and Appropriate Maira AL: [id number] E. As documented in the signed controlled [...] of developing and presence of these conditions). Not available 10/16/2024 15:05:13 12/24/2024 12/24/2024 Images reviewed previously lumbarMRI 2009: moderate to severe DDD, multilevel disc space narrowing, multilevel facet hypertrophy Images reviewed today [id number]/27/ 2025: Severe DDD, previous hardware appreciated, multilevel [...] 3. #b/l Sacroiliac Joint Pain, Chronic worsening [email or web address] Not available 12/24/2024 16:19:05 Plan of Treatment Reminders Order Date Submit Date Provider Last Modified By Organization Details Last Modified Time Details Appointments None recorded. Lab None recorded. Referral None recorded. Procedures medial branch block, lumbar (PROC) - [address]70[address], [address] bilateral t12- L1 MBB#1 2024 025 [email or web address] Joe Saab DO, [address] [place] [address], [place] [address], [place], [address], 5 10:29:37 Surgeries None recorded. Imaging MRI, lumbar spine, w/o contrast - please evaluate for central and neural foraminal stenosis, MODIC changes, spondyloth esis, b/l pars defect and angular stability, DDD, lumbosacra l transition al anatomy 2024 025 [facility], [address], [place], [address], 5 11:55:40 XR, lumbar spine, 2 view - please evaluate for spondyloth esis, b/l pars defect and angular stability 2024 025 [email or web address] [facility] ([facility]), [address], [place], [address], 14:33:01 Medication Orders None recorded. Patient TargetsNo targets recorded. Patient InstructionsNo instructions [...] luisito consu ltati on, pleas e call [phone]. ===== ===== ===== ===== ===== ===== ===== ===== ===== ===== ===== ===== ===== === Not Available [facility] ([facility]) [address] [place], [address], 10/06/2024 07:13:11 10/03/19 25 10/05/2024 TOXAS SURE FLEX 24, UR pdf . Not Available [facility] ([facility]) [address] [place], [address], 10/06/2024 07:13:11 10/03/19 25 10/05/2024 TOXAS SURE FLEX 24, UR creatinine 47 mg/dL REFER ENCE RANGE : Ref Range >=20 Not Available [facility] ([facility]) [address] [place], [address], 10/06/2024 07:13:11 10/03/19 25 10/05/2024 TOXAS SURE FLEX 24, UR amphetamines ia Negati ve NG/mL cutoff :300 Not Available [facility] ([facility]) [address] [place], [address], 10/06/2024 07:13:11 10/03/19 25 10/05/2024 TOXAS SURE FLEX 24, UR benzodiazepi emi Negati ve Not Available [facility] ([facility]) [address] [place], [address], 10/06/2024 07:13:11 10/03/19 25 10/05/2024 TOXAS SURE FLEX 24, UR diazepam Not Detect ed NG/mg _crea t Not Available [facility] ([facility]) [address] [place], [address], 10/06/2024 07:13:11 10/03/19 25 10/05/2024 TOXAS SURE FLEX 24, UR desmethyldia zepam Not Detect ed NG/mg _crea t Not Available [facility] ([facility]) [address] [place], [address], 10/06/2024 07:13:11 10/03/19 25 10/05/2024 TOXAS SURE FLEX 24, UR oxazepam Not Detect ed NG/mg _crea t Not Available [facility] ([facility]) [address] [place], [address], 10/06/2024 07:13:11 10/03/19 25 10/05/2024 TOXAS SURE [...] marely: None Not Available [facility] ([facility]) [address] [place], [address], 10/06/2024 07:13:11 10/03/19 25 10/05/2024 TOXAS SURE FLEX 24, UR alprazolam Not Detect ed NG/mg _crea t Not Available [facility] ([facility]) [address] [place], [address], 10/06/2024 07:13:11 10/03/19 25 10/05/2024 TOXAS SURE FLEX 24, UR alpha-hydrox yalprazolam Not Detect ed NG/mg _crea t Not Available [facility] ([facility]) [address] [place], [address], 10/06/2024 07:13:11 10/03/19 25 10/05/2024 TOXAS SURE FLEX 24, UR desalkylflur azepam Not Detect ed NG/mg _crea t Not Available [facility] ([facility]) [address] [place], [address], 10/06/2024 07:13:11 10/03/19 25 10/05/2024 TOXAS SURE FLEX 24, UR lorazepam Not Detect ed NG/mg _crea t Not Available [facility] ([facility]) [address] [place], [address], 10/06/2024 07:13:11 10/03/19 25 10/05/2024 TOXAS SURE FLEX 24, UR alpha-hydrox ytriazolam Not Detect ed NG/mg _crea t Not Available [facility] ([facility]) [address] [place], [address], 10/06/2024 07:13:11 10/03/19 25 10/05/2024 TOXAS SURE FLEX 24, UR clonazepam Not Detect ed NG/mg _crea t Not Available [facility] ([facility]) [address] [place], [address], 10/06/2024 07:13:11 10/03/19 25 10/05/2024 TOXAS SURE FLEX 24, UR 7-aminoclona zepam Not Detect ed NG/mg _crea t Not Available [facility] ([facility]) [address] [place], [address], 10/06/2024 07:13:11 10/03/19 25 10/05/2024 TOXAS SURE FLEX 24, UR midazolam Not Detect ed NG/mg _crea t Not Available [facility] ([facility]) [address] [place], [address], 10/06/2024 07:13:11 10/03/19 25 10/05/2024 TOXAS SURE FLEX 24, UR alpha-hydrox ymidazolam Not Detect ed NG/mg _crea t Not Available [facility] ([facility]) [address] [place], [address], 10/06/2024 07:13:11 10/03/19 25 10/05/2024 TOXAS SURE FLEX 24, UR flunitrazepa m Not Detect ed NG/mg _crea t Not Available [facility] ([facility]) [address] [place], [address], 10/06/2024 07:13:11 10/03/19 25 10/05/2024 TOXAS SURE FLEX 24, UR desmethylflu nitrazepam Not Detect ed NG/mg _crea t Not Available [facility] ([facility]) [address] [place], [address], 10/06/2024 07:13:11 10/03/19 25 10/05/2024 TOXAS SURE FLEX 24, UR cocaine metabolite ia Negati ve NG/mL cutoff :150 Not Available [facility] ([facility]) [address] [place], [address], 10/06/2024 07:13:11 10/03/19 25 10/05/2024 TOXAS SURE FLEX 24, UR ethyl alcohol enzymatic Negati ve g/dL cutoff :0.020 Not Available [facility] ([facility]) [address] [place], [address], 10/06/2024 07:13:11 10/03/19 25 10/05/2024 TOXAS SURE FLEX 24, UR ethanol biomarkers ia Negati ve NG/mL cutoff :500 Not Available [facility] ([facility]) [address] [place], [address], 10/06/2024 07:13:11 10/03/19 25 10/05/2024 TOXAS SURE FLEX 24, UR cannabinoids ia COMMEN T NG/mL cutoff :20 Furth er testi ng indic ated Not Available [facility] ([facility]) [address] [place], [address], 10/06/2024 07:13:11 10/03/19 25 10/05/2024 TOXAS SURE FLEX 24, UR 6-acetylmorp ezequiel ia Negati ve NG/mL cutoff :10 Not Available [facility] ([facility]) [address] [place], [address], 10/06/2024 07:13:11 10/03/19 25 10/05/2024 TOXAS SURE FLEX 24, UR opiate class ia Negati ve NG/mL cutoff :100 Not Available [facility] ([facility]) [address] [place], [address], 10/06/2024 07:13:11 10/03/19 25 10/05/2024 TOXAS SURE FLEX 24, UR oxycodone class ia Negati ve NG/mL cutoff :100 Not Available [facility] ([facility]) [address] [place], [address], 10/06/2024 07:13:11 10/03/19 25 10/05/2024 TOXAS SURE FLEX 24, UR methadone ia Negati ve NG/mL cutoff :100 Not Available [facility] ([facility]) [address] [place], [address], 10/06/2024 07:13:11 10/03/19 25 10/05/2024 TOXAS SURE FLEX 24, UR methadone mtb ia Negati ve NG/mL cutoff :100 Not Available [facility] ([facility]) [address] [place], [address], 10/06/2024 07:13:11 10/03/19 25 10/05/2024 TOXAS SURE FLEX 24, UR buprenorphin e Negati ve Not Available [facility] ([facility]) [address] [place], [address], 10/06/2024 07:13:11 10/03/19 25 10/05/2024 TOXAS SURE FLEX 24, UR buprenorphin e Not Detect ed NG/mg _crea t Not Available [facility] ([facility]) [address] [place], [address], 10/06/2024 07:13:11 10/03/19 25 10/05/2024 TOXAS SURE FLEX 24, UR norbuprenorp ezequiel Not Detect ed NG/mg _crea t Not Available [facility] ([facility]) [address] [place], [address], 10/06/2024 07:13:11 10/03/19 25 10/05/2024 TOXAS SURE FLEX 24, UR fentanyl / analogues Negati ve Not Available [facility] ([facility]) [address] [place], [address], 10/06/2024 07:13:11 10/03/19 25 10/05/2024 TOXAS SURE FLEX 24, UR fentanyl Not Detect ed NG/mg _crea t Not Available [facility] ([facility]) [address] [place], [address], 10/06/2024 07:13:11 10/03/19 25 10/05/2024 TOXAS SURE FLEX 24, UR norfentanyl Not Detect ed NG/mg _crea t Not Available [facility] ([facility]) [address] [place], [address], 10/06/2024 07:13:11 10/03/19 25 10/05/2024 TOXAS SURE FLEX 24, UR tapentadol ia Negati ve NG/mL cutoff :200 Not Available [facility] ([facility]) [address] [place], [address], 10/06/2024 07:13:11 10/03/19 25 10/05/2024 TOXAS SURE FLEX 24, UR meperidine ia Negati ve NG/mL cutoff :200 Not Available [facility] ([facility]) [address] [place], [address], 10/06/2024 07:13:11 10/03/19 25 10/05/2024 TOXAS SURE FLEX 24, UR propoxyphene ia Negati ve NG/mL cutoff :300 Not Available [facility] ([facility]) [address] [place], [address], 10/06/2024 07:13:11 10/03/19 25 10/05/2024 TOXAS SURE FLEX 24, UR tramadol ia Negati ve NG/mL cutoff :200 Not Available [facility] ([facility]) [address] [place], [address], 10/06/2024 07:13:11 10/03/19 25 10/05/2024 TOXAS SURE FLEX 24, UR barbiturates ia Negati ve NG/mL cutoff :200 Not Available [facility] ([facility]) [address] [place], [address], 10/06/2024 07:13:11 10/03/19 25 10/05/2024 TOXAS SURE FLEX 24, UR sympathomime tics Negati ve Not Available [facility] ([facility]) [address] [facility], [place], [address], 10/06/2024 07:13:11 10/03/19 25 10/05/2024 TOXAS SURE FLEX 24, UR atomoxetine Not Detect ed Not Available [facility] ([facility]) [address] [place], [address], 10/06/2024 07:13:11 10/03/19 25 10/05/2024 TOXAS SURE FLEX 24, UR diethylpropi on Not Detect ed Not Available [facility] ([facility]) [address] [place], [address], 10/06/2024 07:13:11 10/03/19 25 10/05/2024 TOXAS SURE FLEX 24, UR mdea Not Detect ed Not Available [facility] ([facility]) [address] [place], [address], 10/06/2024 07:13:11 10/03/19 25 10/05/2024 TOXAS SURE FLEX 24, UR ephedrine/ps eudoephedrin e Not Detect ed Not Available [facility] ([facility]) [address] [place], [address], 10/06/2024 07:13:11 10/03/19 25 10/05/2024 TOXAS SURE FLEX 24, UR methylphenid ate Not Detect ed Not Available [facility] ([facility]) [address] [place], [address], 10/06/2024 07:13:11 10/03/19 25 10/05/2024 TOXAS SURE FLEX 24, UR ritalinic acid Not Detect ed Not Available [facility] ([facility]) [address] [facility], [place], [address], 10/06/2024 07:13:11 10/03/19 25 10/05/2024 TOXAS SURE FLEX 24, UR phenmetrazin e Not Detect ed Not Available [facility] ([facility]) [address] [place], [address], 10/06/2024 07:13:11 10/03/19 25 10/05/2024 TOXAS SURE FLEX 24, UR phentermine Not Detect ed Not Available [facility] ([facility]) [address] [place], [address], 10/06/2024 07:13:11 10/03/19 25 10/05/2024 TOXAS SURE FLEX 24, UR phenylpropan olamine Not Detect ed Not Available [facility] ([facility]) [address] [place], [address], 10/06/2024 07:13:11 10/03/19 25 10/05/2024 TOXAS SURE FLEX 24, UR methcathinon e Not Detect ed Not Available [facility] ([facility]) [address] [facility], [place], [address], 10/06/2024 07:13:11 10/03/19 25 10/05/2024 TOXAS SURE FLEX 24, UR other hallucinogen s Negati ve Not Available [facility] ([facility]) [address] [place], [address], 10/06/2024 07:13:11 10/03/19 25 10/05/2024 TOXAS SURE FLEX 24, UR ketamine Not Detect ed Not Available [facility] ([facility]) [address] [place], [address], 10/06/2024 07:13:11 10/03/19 25 10/05/2024 TOXAS SURE FLEX 24, UR norketamine Not Detect ed Not Available [facility] ([facility]) [address] [facility], [place], [address], 10/06/2024 07:13:11 10/03/19 25 10/05/2024 TOXAS SURE FLEX 24, UR phencyclidin e ia Negati ve NG/mL cutoff :25 Not Available [facility] ([facility]) [address] [place], [address], 10/06/2024 07:13:11 10/03/19 25 10/05/2024 TOXAS SURE FLEX 24, UR gabapentin ia Negati ve ug/mL cutoff :1.0 Not Available [facility] ([facility]) [address] [place], [address], 10/06/2024 07:13:11 10/03/19 25 10/05/2024 TOXAS SURE FLEX 24, UR carisoprodol ia Negati ve NG/mL cutoff :100 Not Available [facility] ([facility]) [address] [place], [address], 10/06/2024 07:13:11 10/03/19 25 10/05/2024 TOXAS SURE FLEX 24, UR sedative/hyp notics Negati ve Not Available [facility] ([facility]) [address] [place], [address], 10/06/2024 07:13:11 10/03/19 25 10/05/2024 TOXAS SURE FLEX 24, UR zolpidem Not Detect ed Not Available [facility] ([facility]) [address] [place], [address], 10/06/2024 07:13:11 10/03/19 25 10/05/2024 TOXAS SURE FLEX 24, UR zolpidem acid Not Detect ed Not Available [facility] ([facility]) [address] [place], [address], 10/06/2024 07:13:11 10/03/19 25 10/05/2024 TOXAS SURE FLEX 24, UR zopiclone/es zopiclone Not Detect ed Not Available [facility] ([facility]) [address] [place], [address], 10/06/2024 07:13:11 10/03/19 25 10/05/2024 TOXAS SURE FLEX 24, UR amino chloropyridi ne Not Detect ed Not Available [facility] ([facility]) [address] [facility], [place], [address], 10/06/2024 07:13:11 10/03/19 25 10/05/2024 TOXAS SURE FLEX 24, UR zaleplon Not Detect ed Expec darlin metab olism of Sedat [place]/ Hypno tics: Paren t Drug Detec darlin Metab olite s ----- ----- - ----- ----- ----- ----- Zolpi dem: Zolpi dem Acid Zopic lone/ Eszop iclon e: Amino Chlor opyri dine Zalep jojo: None Not Available [facility] ([facility]) [address] [facility], [place], [address], 10/06/2024 07:13:11 10/03/19 25 10/05/2024 TOXAS SURE FLEX 24, UR acetaminophe n ia COMMEN T ug/mL cutoff :5.0 Furth er testi ng indic ated Not Available [facility] ([facility]) [address] [facility], [place], [address], 10/06/2024 07:13:11 10/03/19 25 10/05/2024 TOXAS SURE FLEX 24, UR miscellaneou s Negati ve Not Available [facility] ([facility]) [address] [facility], [place], [address], 10/06/2024 07:13:11 10/03/19 25 10/05/2024 TOXAS SURE FLEX 24, UR dextromethor escobedo Not Detect ed Not Available [facility] ([facility]) [address] [facility], [place], [address], 10/06/2024 07:13:11 10/03/19 25 10/05/2024 TOXAS SURE [...] abdulaziz sis. Not Available [facility] ([facility]) [address] [facility], [place], [address], 10/06/2024 07:13:11 10/03/19 25 10/05/2024 JANEA JEFF DS, MS, UR RFX cannabinoids +POSIT SARAH+ Not Available [facility] ([facility]) [address] [facility], [place], [address], 10/06/2024 07:13:12 10/03/19 25 10/05/2024 JANEA JEFF DS, MS, UR RFX carboxy-THC 151 NG/mg [...] binoi ds. Not Available [facility] ([facility]) [address] [facility], [place], [address], 10/06/2024 07:13:12 10/03/19 25 10/05/2024 ACETA MINOP HEN, MS, UR RFX analgesics/n saids +POSIT SARAH+ Not Available [facility] ([facility]) [address] [facility], [place], [address], 10/06/2024 07:13:12 10/03/19 25 10/05/2024 ACETA NOHEMIOP HEN, MS, UR RFX acetaminophe n PRESEN T Not Available [facility] ([facility]) [address] [facility], [place], [address], 10/06/2024 07:13:12 10/16/1910/11/2024 XR, lumba r spine , 2 view No observ ation record ed. [facility] [address] [place], [address], 10/24/2024 12:23:11 10/16/19 25 10/11/2024 XR, lumba r spine [facility] [address] [facility] [place] [address] Phone: Fax: Name: JOCELYN ARELLANO Exam Date: 025 : 1954 Age 69 years Gender : F Access ion: [id number] Physic christopher: IRVIN SAAB Facili ty: [facility] Facili ty HSV: Outpat ient Exam: [...] you for referr ing JOCELYN ARELLANO to [facility]. Legall y authen ticate d by LINO MÉNDEZ MD 2024-0 10-11 12:32: 10 CC'ed Logic: Orderi ng Provid er: KAISER Saleem CC Provid er: JOSEPHINE D Attend ing Provid er: KAISER Saleem Referr ing Provid er: KAISER Saleem Admitt ing Provid er: KAISER Saleem [id number] [facility] (Radiology) [address] [place] [address] [place], [address], 10/24/2024 11:33:24 10/31/19 25 10/29/2024 MRI, lumba r spine , w/o contr ast No observ ation record ed. [facility] [address], [place], [address], 11/23/2024 11:22:10 Result Notes Documentation Provider Name and Address Organization Details Recorded Time Xr, Lumbar Spine : [address] [place] [address] Name: JOCELYN ARELLANO Exam Date: 10/11/2024 : 1955 Age 69 years Gender: F Physician: JOE SAAB Facility: [facility] Facility HSV: Outpatient Exam: LUMBAR 5V XR [...] Thank you for referring JOCELYN ARELLANO to [facility]. Legally authenticated by LINO MÉNDEZ MD 2024-10-11 12:32:10 CC'ed Logic: Ordering Provider: KAISER HAMPTON CC Provider: JOSEPHINE Bain Attending Provider: KAISRE HAMPTON Referring Provider: KAISER HAMPTON Admitting Provider: KAISER SAAB DO [address] [place], [address], [place] - [facility] - [place] & [place] 10/24/2024 11:33:24 Problems Name Problem SNOMED Code Status Onset Date Resolution Date Notes Provider Name and Address Organization Details Recorded Time Inflammation of sacroiliac joint 64102531 Active 2024 JOE SAAB [address], [address], [place] [facility] - [place] & [place] 5 10:12:37 Lumbar spondylosis 162364954 Active 2024 JOE SAAB [address], [address], [place] [facility] - [place] & [place] 5 10:12:40 Post-laminecto my syndrome 55862719 Active 2024 JOE SAAB [address], [address], [place] [facility] - [place] & [place] 5 16:25:09 Chronic kidney disease 113463861 Active 2024 JOE SAAB [address], [address], [place] [facility] - [place] & [place] 5 16:25:10 Chronic low back pain 534257803 Active 2024 JOE SAAB [address], [address], [place] - [facility] - [place] & [place] 5 16:25:11 Nicotine dependence 52211823 Active 2024 JOE SAAB [address], [address], [place] - [facility] - [place] & [place] 5 16:35:55 Stenosis of spinal canal due to intervertebral disc 400038707 Active 2024 JOE SAAB [address], [address], [facility] - [place] - [place] & [place] 5 15:05:22 Closed fracture lumbar vertebra, wedge 875440535 Active 2024 JOE SAAB [address], [address], [facility] - [facility] - [place] & [place] 5 15:06:57 Problem Notes None recorded. Procedures Surgical History Date Name Laterality Status Provider Name and Address Organization Details Recorded Time 3 Other completed Teresa MONTEJO - [facility] & [place] 10/16/2024 14:27:14 0 Back Surgery completed Teresa Jag MONTEJO - JOVINT [facility] & [place] 10/16/2024 14:27:14 4 Other completed Teresa Jag MONTEJO - [facility] - [place] & [place] 10/16/2024 14:27:14 Imaging Results None recorded. Procedure [...] blood by Pulse oximetry Heart rate Systolic And Diastolic Provider Name and Address Organization Details Last Updated DateTime 5 46132.3 2 g 97.5 [degF] 100 % 100 % 56 /min 183/90 mm[Hg] Teresa Rm [facility] & [place] 5 09:39:22 Date Recorded Body weight Body temperature Oxygen saturation Oxygen saturation in Arterial blood by Pulse oximetry Heart rate Systolic And Diastolic Provider Name and Address Organization Details Last Updated DateTime 5 48268.4 5 g 97.6 [degF] 99 % 99 % 53 /min 156/82 mm[Hg] Teresa MONTEJO [facility] & [place] 5 14:26:37 Date Recorded Body weight Body temperature Oxygen saturation Oxygen saturation in Arterial blood by Pulse oximetry Heart rate Systolic And Diastolic Provider Name and Address Organization Details Last Updated DateTime 5 91812.4 5 g 97.5 [degF] 98 % 98 % 52 /min 150/77 mm[Hg] Teresa MONTEJO [facility] & [place] 5 11:10:16 Social History Question Answer Notes LastModified by Organizat ion Details LastModified Time Tobacco Smoking Status Current Every Day Smoker [facility] & [place] 10/16/2024 14:27:11 Do You Have An Advance Directive? No [email or web address] Information not available 10/16/2024 Are You Blind Or Do You Have Difficulty Seeing? No [email or web address] Information not available 10/16/2024 What Was The Date Of Your Most Recent Tobacco Screening? 10/13/2024 [email or web address] Information not available 10/16/2024 Are You Passively Exposed To Smoke? Yes [email or web address] Information not available 10/16/2024 How Much Tobacco Do You Smoke? 1 PPD [email or web address] Information not available 10/16/2024 How Many Years Have You Smoked Tobacco? 50 [email or web address] Information not available 10/16/2024 Sex: Female Functional Status Question Answer Note LastModified by Organizat ion Details LastModified Time Do you use any illicit or recreational drugs? Yes [email or web address] Information not available 10/16/2024 What is your level of alcohol consumption? None Information not available 10/16/2024 Do you or have you ever used smokeless tobacco? Never used smokeless tobacco [email or web address] Information not available 10/16/2024 What is your exercise level? Occasional [email or web address] Information not available 10/16/2024 Mental Status Question Answer Note LastModified by Organization D etails LastModified Time Do you feel stressed (tense, restless, nervous, or anxious, or unable to sleep at night)? [id number] Information not available 10/16/2024 Family History Nothing Reported. Medical History Condition Response Reflux/GERD Y Headaches Y Back Problems Y Thyroid Problems Y Hypertension Y Kidney or Bladder Problems Y COPD Y Lung Disease Y Gynecological HistoryNo gynecological history recorded. Obstetrics History GPAL:G 0 P 0 0 0 0 Past Encounters Encounter ID Performer Location Encounter Start Date Encounter Closed Date Diagnosis/Indication Diagnosis SNOMED-CT Code Diagnosis ICD10 Code Diagnosis Note [id number] JOE SAAB DO [facility] [address] [place] [address] 10/02/2024 09:22:55 10/02/2024 10:32:07 Inflammation of sacroiliac joint 96804512 M46.1 Lumbar spondylosis 68803 0009 M47.896 Post-latasha ectomy syndrome 98091257 M96.1 Chronic ki dney disease 599970258 N18.9 Chronic low back pain 27 8425548 M54.50 G89.29 Nicotine dependence 5629 4008 F17.766 [id number] JOE SAAB DO [facility] [place] [address] 10/16/2024 13:51:53 10/16/2024 14:53:54 Inflammation of sacroiliac joint 24580900 M46.1 Lumbar spondylosis 75005 0009 M47.896 Post-latasha ectomy syndrome 19212360 M96.1 Chronic ki dney disease 627679513 N18.9 Chronic low back pain 27 1038167 M54.50 G89.29 Nicotine dependence 5629 4008 F17.200 Stenosis o f spinal canal due to intervertebral disc 259192069 M99.53 Closed fra cture lumbar vertebra, wedge 426117264 S32.020D [id number] JOE SAAB DO [facility]- [address] [place] [address] 12/24/2024 10:55:04 12/24/2024 11:43:37 Inflammation of sacroiliac joint 63698495 M46.1 Lumbar spondylosis 00223 0009 M47.896 Post-latasha ectomy syndrome 51055429 M96.1 Chronic ki dney disease 539814045 N18.9 Chronic low back pain 27 3471695 M54.50 G89.29 Nicotine dependence 5629 4008 F17.200 Stenosis o f spinal canal due to intervertebral disc 483820289 M99.53 Closed fra cture lumbar vertebra, wedge 490051580 S32.020D Health Concerns Section Related Observation LastModified by Organization Detai ls LastModified Time None Recorded Concern Status LastModified by Organization Details LastModified Time None Recorded Advance Directives Directive N: Payers Insurance Date Sequence Insurance Name Policy Number Policy Howard Covered Member ID Howard Member ID Guarantor Name 09/10/2024 1 [place] [id number] Jocelyn Arellano [id number] Jocelyn Arellano 12/27/2024 1 [place]MEDIC[place] REPLACEMENT HMO) [id number] Jocelyn Arellano [id number] Jocelyn Arellano Notes Date Note Type Note Provider Name and Address Organization Details Recorded Time 5 text/html Patient presented with chronic low back pain for several years and with a previous history of lumbar spinal fusion. She has been treated previously by the pain treatment Center in [facility]. She asked to leave and be seen by a different interventional pain physician. She supposedly has a medical marijuana card. She has not received injections and was being treated with medication management Referral: Alida MATAPO-ESXW-qvbqqxv use disorder, CAD, hypothyroidism, HTN, CKD stage [...] NoneWork Status: retired JOE SAAB, DO [address] [facility], [place], [address], [facility] - [facility] 10/02/2024 16:36:20 5 text/html Patient presented with chronic low back pain for several years and with a previous history of lumbar spinal fusion. She has been treated previously by the pain treatment Center in [facility]. She asked to leave and be seen by a different interventional pain physician. She did not receive injections and was being treated with medication management Referral: Alida [id number]-KCIT-[id number] use disorder, CAD, hypothyroidism, HTN, CKD stage [...] NoneWork Status: retired JOE SAAB, DO [address] [facility], [place], [address] & [place] 10/16/2024 15:57:07 5 text/html Patient presented with chronic low back pain for several years and with a previous history of lumbar spinal fusion. She has been treated previously by the pain treatment Center in [facility]. She asked to leave and be seen by a different interventional pain physician. She did not receive injections and was being treated with medication management Referral: Alida MATAQD-QUHX-pbzafaa use disorder, CAD, hypothyroidism, HTN, CKD stage [...] NoneWork Status: retired JOE SAAB, DO [address] [facility], [place], [address], [facility] & [place] 12/24/2024 16:19:09 OBGyn Episode No OBEpisode recorded.
--- OUTSIDE RECORDS SUMMARY | 2025-01-24 18:07 | XMS_ITS | Continuity of Care Document ---
Author Organization [place] - [facility] New Address [address] [place], [place] [address] Care Team Providers Care Sales Support Coordinator Name Role Phone [facility] Referring Provider Assessment Encounter Date Assessment Date Assessment LastModified by Organization Details LastModified Time 12/24/2024 12/24/2024 Images reviewed previously lumbarMRI 2009: moderate to severe DDD, multilevel disc space narrowing, multilevel facet hypertrophy Images reviewed today [email or web address] 01/2025: Severe DDD, previous hardware appreciated, multilevel facet [...] 3. #b/l Sacroiliac Joint Pain, Chronic worsening [email or web address] Not available 12/24/2024 16:19:05 Plan of Treatment Reminders Order Date Submit Date Provider Last Modified By Organization Details Last Modified Time Details Appointments None record ed. Lab None record ed. Referral None record ed. Procedures None record ed. Surgeries None record ed. Imaging None record ed. Medication Orders None record ed. Patient TargetsNo targets recorded. Patient Instructions Encounter Date Encounter Id Patient Instructions Last Modified By Organization Details Last Modified Time 12/24/2024 [id number] I have discussed in great detail our [...] __ __ __ __ __ _ MIKAELA: [id number] I have reviewed patient's MIKAELA report prior to prescribing Schedule II, III, and IV medications that require review by law. [email or web address] Not available 12/24/2024 16:12:10 Reason for Referral None Reported. Problems Name Problem SNOMED Code Status Onset Date Resolution Date Notes Provider Name and Address Organization Details Recorded Time Inflammation of sacroiliac joint 54822945 Active [address], [address], [place] - [facility] - [place] & [place] 5 10:12:37 Lumbar spondylosis 663755234 Active 2024 BERTA SAAB [address], [address], [place] - [facility] - [place] & [place] 5 10:12:40 Post-laminecto my syndrome 63186006 Active 2024 BERTA SAAB [address], [address], [place] - [facility] - [place] & [place] 5 16:25:09 Chronic kidney disease 902055121 Active 2024 BERTA SAAB [address], [address], [place] - [facility] - [place] & [place] 5 16:25:10 Chronic low back pain 615010319 Active 2024 [address]ERTA SAAB [address], [address], [place] - [place] - [place] & [place] 5 16:25:11 Nicotine dependence 96511813 Active 2024 BERTA SAAB [address], [address], [place] - [facility] - [place] & [place] 5 16:35:55 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 Procedures Surgical History Date Name Laterality Status Provider Name and Address Organization Details Recorded Time 3 Other completed [facility] [place] [facility] & [place] 10/16/2024 14:27:14 0 [facility] [place] 10/16/2024 14:27:14 4 Other completed [facility] [place] [facility] & [place] 10/16/2024 14:27:14 Imaging Results None recorded. Procedure [...] Address Organization Details Last Updated DateTime 5 [address].4 5 g 97.5 [degF] 98 % 98 % 52 /min 150/77 mm[Hg] Teresa Rm [facility] & [place] 11:10:16 Social History Question Answer Notes LastModified by Organizat ion Details LastModified Time Tobacco Smoking Status Current Every Day Smoker Teresa Rm [facility] & [place] 10/16/2024 14:27:11 Do You Have An Advance Directive? No Information not available 10/16/2024 Are You Blind Or Do You Have Difficulty Seeing? No [email or web address] Information not available 10/16/2024 What Was The Date Of Your Most Recent Tobacco Screening? 10/13/2024 Information not available 10/16/2024 Are You Passively Exposed To Smoke? Yes [email or web address] Information not available 10/16/2024 How Much Tobacco Do You Smoke? 1 PPD [email or web address] Information not available 10/16/2024 How Many Years Have You Smoked Tobacco? 50 [email or web address] Information not available 10/16/2024 Sex: Female Functional Status Question Answer Note LastModified by Organizat ion Details LastModified Time Do you use any illicit or recreational drugs? Yes [email or web address] Information not available 10/16/2024 What is your level of alcohol consumption? None [email or web address] Information not available 10/16/2024 Do you or have you ever used smokeless tobacco? Never used smokeless tobacco Information not available 10/16/2024 What is your exercise level? Occasional Information not available 10/16/2024 Mental Status Question Answer Note LastModified by Organization D etails LastModified Time Do you feel stressed (tense, restless, nervous, or anxious, or unable to sleep at night)? [id number] [email or web address] Information not available 10/16/2024 Family History Nothing Reported. Medical History Condition Response Reflux/GERD Y Back Problems Y Headaches Y Thyroid Problems Y Kidney or Bladder Problems Y Hypertension Y Lung Disease Y COPD Y Gynecological HistoryNo gynecological history recorded. Obstetrics History GPAL:G 0 P 0 0 0 0 Past Encounters Encounter ID Performer Location Encounter Start Date Encounter Closed Date Diagnosis/Indication Diagnosis SNOMED-CT Code Diagnosis ICD10 Code Diagnosis Note [id number] BERTA SAAB DO [facility] [place], [place] [address] 12/24/2024 10:55:04 12/24/2024 11:43:37 Inflammation of sacroiliac joint 87806205 M46.1 Lumbar spondylosis [address] 0009 M47.896 Post-latasha ectomy syndrome 78163296 M96.1 Chronic ki dney disease 436512261 N18.9 Chronic low back pain 27 4039504 M54.50 G89.29 Nicotine dependence 5629 4008 F17.200 Stenosis o f spinal canal due to intervertebral disc 318582239 M99.53 Closed fra cture lumbar vertebra, wedge 027327865 S32.020D Health Concerns Section Related Observation LastModified by Organization Detai ls LastModified Time None Recorded Concern Status LastModified by Organization Details LastModified Time None Recorded Payers Encounter Date Sequence Insurance Name Policy Number Policy Howard Covered Member ID Howard Member ID Guarantor Name 12/24/2024 1 [place]MEDICARE REPLACEMENT HMO) [id number] Jocelyn Mike Amber [id number] Jocelyn Amber Notes Date Note Type Note Provider Name and Address Organization Details Recorded Time 5 text/html Patient presented with chronic low back pain for several years and with a previous history of lumbar spinal fusion. She has been treated previously by the pain treatment Center in [facility]. She asked to leave and be seen by a different interventional pain physician. She did not receive injections and was being treated with medication management Referral: Alida MATAML-GKEA-qapmdor use disorder, CAD, hypothyroidism, HTN, CKD stage [...] unknownAnticoagulation: NoneAntiplatelets: NoneWork Status: retired BERTA SAAB, [address], [place], [address], [facility] - [facility] - [place] & [place] 12/24/2024 16:19:09 OBGyn Episode No OBEpisode recorded.
--- OUTSIDE RECORDS SUMMARY | 2025-01-24 18:07 | XMS_ITS | Clinical Summary ---
Author Organization [facility] Address [address] [place] [address] Care Team Providers Care Mammography Tech Name Role Phone Ayse Roth SENIOR DIRECTOR OF STRATEGY Primary Care Provider [phone] Allergies No known active allergies Medications albuterol 108 (90 Base) MCG/ACT inhaler Inhale 2 puffs 4 (four) times a day. Active pantoprazole (ProtoNix) 20 MG EC tablet Take 1 tablet (20 mg) by mouth 1 (one) time each day before breakfast. Do not crush, chew, or split. Active cholecalciferol (Vitamin D-3) 50 MCG (2000 UT) capsule Take 1 capsule (2,000 Units) by mouth 1 (one) time each day. Active ergocalciferol (Vitamin D-2) 1.25 MG (41485 UT) capsule Take 1 capsule (50,000 Units) by mouth 1 (one) time per week. Active metoprolol tartrate (Lopressor) 100 MG tablet Take 1 tablet (100 mg) by mouth 2 (two) times a day. 4 Active atorvastatin (Lipitor) 80 MG tablet Take 1 tablet (80 mg) by mouth 1 (one) time each day. 4 Active valsartan (Diovan) 320 MG tablet Take 1 tablet (320 mg) by mouth daily. Active verapamil (Calan) 120 MG tablet Take 1 tablet (120 mg) by mouth in the evening. Active levothyroxine (Synthroid, Levoxyl) 75 MCG tabletIndicatio ns:Hypothyroidi sm, unspecified type Take one tablet (75 mcg) levothyroxine 30-60 minutes before breakfast daily 30 tablet 3 Active Additional Information Patient taking differently: 0.5 mcg Oral Daily, Take one tablet (75 mcg) levothyroxine 30-60 minutes before breakfast daily, Reported on 12/21/2024 alendronate (Fosamax) 70 MG tablet Take 1 tablet every week by oral route for 90 days, for osteoporosis. Active Calcium Carb-Cholecalci ferol 600-10 MG-MCG tablet Take 1 tablet by mouth daily. Active Active Problems Problem Noted Date Diagnosed Date [...] hyperlipidemia 04/05/2024 Coronary artery disease invo lving [place] coronary artery of [place] heart without angina pectoris 04/05/2024 Encounters Date Type Department Care Team Description 12/21/2024 1:00 PM EDT Office Visit [facility] [address] [place] [address] Leobardo Aceves MD Persistent proteinuria (Primary Dx); Hypertensive chronic kidney disease with stage 1 through stage 4 chronic kidney disease, or unspecified chronic kidney disease; Chronic kidney disease (CKD) stage G3b/A3, moderately decreased glomerular filtration rate (GFR) between 30-44 mL/min/1.73 square meter and albuminuria creatinine ratio greater than 300 mg/g (CMS/HCC); Chronic kidney disease-mineral and bone disorder (CKD-MBD); Mixed hyperlipidemia 12/21/2024 Travel from Last 3 Months Immunizations Immunization Administration Dates Next Due Influenza, high-dose, quadrivalent 08/31/2023 Influenza, injectable, quadrivalent, preservativ e free 04/14/2020 [facility] COVID-19 Vaccine (Purple Cap) 12 + 12/03/2020,10/29/2020 [...] 12/21/2024 12:51 PM EDT Plan of Treatment Health Maintenance Due Date Last Done Comments [facility]-Bone Density Scan 1955 [facility]-Hepatitis C Screening 1955 [facility]-Medicare Annual Wellness (AWV) 1955 [facility]-/Child/Adol SDOH Screenings 1955 [facility]- SDOH Screenings 1973 [...] - Risk 60-74 years 1-dose series) 2015 [id number] Vaccine ( - season) 2024 08/31/2023, 06/03/2021, 12/03/2020, Additional history exists [facility]-Influenza Vaccine (#1) 2025 08/31/2023, [facility]-Depression Screening 05/21/2025 05/21/2024 [facility]-Obesity Intervention Completed [...] on patient's age to complete this topic Insurance [facility] MEDICARE Care Teams Mammography Tech Relationship Specialty Start Date End Date Ayse Roth APRN [address] [place] [address] PCP - General 04/05/24
--- OUTSIDE RECORDS SUMMARY | 2025-01-24 18:07 | XMS_ITS | Data Portability ---
Author Organization [employer] [facility] Address [address] [place] [address] Care Team Providers Care Vamp Seamer Name Role Phone [facility] Pain Manag ement [phone] [facility] Boiler/Chiller Technician JANETTE ALVAREZ Community Health Worker [phone] ALIDA GARZA Primary Care Provider RAYNA Hurley Marker Hand Assessment Encounter Date Assessment Date Assessment LastModified by Organization Details LastModified Time 09/07/2024 09/07/2024 Patient presents with symptoms of UTI. Results of dipstick were positive for UTI. Advised to drink clear fluids, Tylenol for pain and take prescribed medications as instructed. Patient encouraged to follow up within 1 week if not improving. [email or web address] Not available 09/07/2024 11:40:58 10/09/2024 10/09/2024 Patient [...] Lab TSH, ultra-sen sitive, serum 2024 025 [facility] ([place]), [address] [place], [address], 11/10/2024 01:07:22 urinalysi s, dipstick 2024 025 [facility], [address] [facility], [place], [address], 11/06/2024 12:18:29 culture, urine 2024 025 [facility] ([place]), [address] [place], [address], 11/10/2024 01:07:23 noninvasi ve colorecta l cancer DNA + occult blood screening , QL, stool 2024 025 [facility] (Cologuard Orders Only), [address], [address], [place], [address], 11/27/2024 08:49:31 lipid panel, serum 2024 025 [facility] ([place]), [address] [place], [address], 10/11/2024 21:06:48 CMP, serum or plasma 2024 025 [facility] ([place]), [address] [place], [address], 10/11/2024 21:06:48 CBC w/ auto diff 2024 025 [facility] ([place]), [address] [place], [address], 10/11/2024 21:06:47 vitamin D, 25-hydrox y, total, serum 2024 025 [facility] ([place]), [address] [place], [address], 10/11/2024 21:06:49 TSH, ultra-sen sitive, serum 2024 025 [facility] ([place]), [address] [place], [address], 10/11/2024 21:06:49 Hepatitis C IgG Ab, qual, serum 2024 025 [facility] ([place]), [address] [place], [address], 10/11/2024 21:06:48 HIV 1 + 2, meaningfu l use set 2024 025 [facility] ([place]), [address] [place], [address], 10/11/2024 21:06:49 urinalysi s, dipstick [address], [address] [facility], [place], [address], 09/07/2024 09:37:05 culture, urine 2024 025 [facility]), [address] [place], [address], 09/10/2024 19:07:22 Referral cardiolog ist referral - first available appt 2024 025 WEI Villegas MD, [address] [place] [address] [address], [place], [address], 10/11/2024 09:32:42 pain managemen t referral - first available appt 2024 025 [facility], [address] [place] [address] [address] , [place], [address], 10/10/2024 11:15:41 Procedures None recorded. Surgeries None recorded. Imaging LDCT, chest, for lung cancer screening 2024 025 [facility] Scheduling Department -New Scheduling Process, [facility] [address], [place], [address], 01/10/2025 11:08:59 DEXA 2024 025 [facility] Scheduling Department -New Scheduling Process, [facility] [address], [place], [address], 10/30/2024 09:35:56 US, duplex, renal artery - first available appt 2024 025 [facility] Scheduling Department -New Scheduling Process, [address] [place] [address] [address], [place], [address], 10/05/2024 11:48:07 Medication Orders Fosamax 70 mg tablet 2024 025 [facility]48559, [address], [place], [id number], 12/25/2024 13:38:12 Calcium 600 + D(3) 600 mg-10 mcg (400 unit) tablet 2024 025 [facility] #12097, [address], [place], [id number], 12/25/2024 13:38:34 Breztri Aerospher e 160 mcg-9mcg- 4.8mcg/ac tuation HFA aerosol inhaler 2024 025 [facility] #55605, [address], [place], [id number], 12/25/2024 13:38:31 atorvasta tin 10 mg tablet 2024 025 [facility] #15243, [address], [place], [id number], 12/25/2024 17:44:38 pantopraz ole 40 mg tablet,de layed release 2024 025 [facility] #81476, [address], [place], [id number], 12/25/2024 13:38:26 metoprolo l tartrate 100 mg tablet 2024 025 [facility] #08644, [address], [place], [id number], 12/25/2024 13:38:41 hydralazi ne 25 mg tablet 2024 [facility]54944, [address], [place], [id number], 12/25/2024 13:38:38 valsartan 320 mg tablet 2024 025 [facility] #27367, [address], [place], [id number], 12/25/2024 13:43:02 verapamil ER (SR) 120 mg tablet,ex tended release 2024 [facility] #50163, [address], [place], [id number], 12/25/2024 17:46:48 duloxetin e 60 mg capsule,d elayed release 2024 [facility] #05586, [address], [place], [id number], 12/25/2024 13:38:07 lamotrigi ne 200 mg tablet 2024 025 [facility] #20738, [address], [place], [id number], 12/25/2024 13:38:36 levothyro xine 75 mcg tablet 2024 025 [facility] #44821, [address], [place], [id number], 12/25/2024 17:46:16 levothyro xine 75 mcg tablet [address] [facility]06904, [address], [id number], 12/25/2024 17:46:05 Macrobid 100 mg capsule 2024 025 [facility] #27036, [address], [place], [id number], 12/25/2024 13:11:50 hydralazi ne 25 mg tablet [address] [facility]91304, [address] [place], [id number], 10/09/2024 09:40:19 cefdinir 300 mg capsule 2024 025 [facility] #50314, [address], [place], [id number], 09/20/2024 14:19:14 clonidine HCl 0.1 mg tablet 2024 025 [email or web address] Not available 09/20/2024 14:19:12 Patient TargetsNo targets recorded. Patient Instructions Encounter Date Encounter Id Patient Instructions Last Modified By Organization Details Last Modified Time 09/07/2024 [id number] chronic pain: care instructions [email or web address] Not available 09/07/2024 09:33:23 painful urinatio n (dysuria): care instructions [email or web address] Not available 09/07/2024 09:23:10 09/20/2024 [id number] learning about healthy weight [email or web address] Not available 09/20/2024 15:11:45 high blood pressure: care instructions [email or web address] Not available 09/20/2024 14:36:01 learning about high blood pressure [email or web address] Not available 09/20/2024 14:36:01 10/09/2024 [id number] earwax blockage: care instructions [email or web address] Not available 10/09/2024 17:54:31 high blood pressure: care instructions Not available 10/09/2024 10:31:42 learning about high blood pressure [email or web address] Not available 10/09/2024 10:31:42 HIV testing: car e instructions [email or web address] Not available 10/09/2024 10:31:42 Discussed and explained advance directives such as standard forms to the . Face to face discussion lasted for a duration of ___ minutes. Not available 10/09/2024 09:32:47 11/06/2024 [id number] painful urinatio n (dysuria): care instructions [email or web address] Not available 11/06/2024 12:18:29 hypothyroidism: care instructions [email or web address] Not available 11/06/2024 12:47:01 12/25/2024 [id number] deciding about using medicines to quit smoking [email or web address] Not available 12/25/2024 13:43:07 Quitting Tobacco : Care Instructions [email or web address] Not available 12/25/2024 13:43:07 chronic obstructive pulmonary disease (COPD): care instructions [email or web address] Not available 12/25/2024 13:37:52 learning about copd and how to prevent lung infections [email or web address] Not available 12/25/2024 13:37:52 high cholesterol : care instructions [email or web address] Not available 12/25/2024 13:37:53 osteoporosis: care instructions [email or web address] Not available 12/25/2024 13:37:52 chronic pain: care instructions [email or web address] Not available 12/25/2024 13:37:53 high blood pressure: care instructions [email or web address] Not available 12/25/2024 13:37:53 learning about high blood pressure Not available 12/25/2024 13:37:53 learning about mood disorders [email or web address] Not available 12/25/2024 13:37:53 hypothyroidism: care instructions [email or web address] Not available 12/25/2024 13:37:53 Reason for Referral Pain Management Referral for Chronic pain first available appt Referring Physician: [facility], Encounter Date: 09/07/2024 Boiler/Chiller Technician Referral for Es sential hypertension first available appt Referring Physician: [facility], Encounter Date: 09/20/2024 Results Created Date Observation Date Name Description Value Unit Range Abnormal Flag Note LastModifiedBy Organization Detail LastModifiedTime 09/07/1909/10/2024 URINE CULTU RE, ROUTI NE urine culture, routine Final report abnormal Not Available [facility] ([facility]) [address] [facility], [place], [address], 09/10/2024 19:07:22 09/07/19 25 09/10/2024 URINE CULTU [...] ng units per mL Not Available [facility] ([facility] [address] [facility], [place], [address], 09/10/2024 19:07:22 09/07/19 25 09/10/2024 URINE CULTU [...] thopr im/Liu lfa S Not Available [facility] ([facility]) [address], [place], [address], 09/10/2024 19:07:22 09/07/19 25 09/07/2024 urina lysis , dipst ick Leukocytes Small Not Available [facility] [address] [place] [address], [place], [address], 09/07/2024 09:22:33 09/07/19 25 09/07/2024 urina lysis , dipst ick Nitrite positi ve Not Available [facility] [address] [place] [address], [address], 09/07/2024 09:22:33 09/07/19 25 09/07/2024 urina lysis , dipst ick Urobilinogen .2 Not Available [facility] [address] [place] [address], [place], [address], 09/07/2024 09:22:33 09/07/19 25 09/07/2024 urina lysis , dipst ick Protein 300 Not Available [address], [place], [address], 09/07/2024 09:22:33 09/07/19 25 09/07/2024 urina lysis , dipst ick pH 6.5 Not Available [address], [address], 09/07/2024 09:22:33 09/07/19 25 09/07/2024 urina lysis , dipst ick Blood Small Not Available [address], [address], 09/07/2024 09:22:33 09/07/19 25 09/07/2024 urina lysis , dipst ick Specific [place] 1.025 Not Available [address], [place], [address], 09/07/2024 09:22:33 09/07/19 25 09/07/2024 urina lysis , dipst ick Ketone Negati ve Not Available [address], [place], [address], 09/07/2024 09:22:33 09/07/19 25 09/07/2024 urina lysis , dipst ick Bilirubin Negati ve Not Available [address], [place], [address], 09/07/2024 09:22:33 09/07/19 25 09/07/2024 urina lysis , dipst ick Glucose Negati ve Not Available [address], [place], [address], 09/07/2024 09:22:33 09/07/19 25 09/07/2024 urina lysis , dipst ick Appearance Cloudy Not Available [address], [place], [address], 09/07/2024 09:22:33 09/07/19 25 09/07/2024 urina lysis , dipst ick Color Yellow Not Available [address], [place], [address], 09/07/2024 09:22:33 10/10/19 25 10/10/2024 CBC WITH DIFFE RENTI AL/PL ATELE T WBC 8.0 x10e3 /uL 3.4-10 .8 normal Not Available [facility] ([facility] [place] [facility] [address] [facility], [place], [address], 10/11/2024 21:06:47 10/10/19 25 10/10/2024 CBC WITH DIFFE RENTI AL/PL ATELE T RBC 3.92 x10e6 /uL 3.77-5 .28 normal Not Available [facility] ([facility] [place] [facility] [address] [place], [address], 10/11/2024 21:06:47 10/10/19 25 10/10/2024 CBC WITH DIFFE RENTI AL/PL ATELE T hemoglobin 13.0 g/dL 11.1-1 5.9 normal Not Available [facility] ([facility] [place] [facility] [address] [place], [address], 10/11/2024 21:06:47 10/10/19 25 10/10/2024 CBC WITH DIFFE RENTI AL/PL ATELE T hematocrit 39.7 % 34.0-4 6.6 normal Not Available [facility] ([facility] [place] [facility]) [address] [place], [address], 10/11/2024 21:06:47 10/10/19 25 10/10/2024 CBC WITH DIFFE RENTI AL/PL ATELE T MCV 101 fL 79-97 above high normal Not Available [facility] ([facility] [place] [facility] [address] [place], [address], 10/11/2024 21:06:47 10/10/1910/10/2024 CBC WITH DIFFE RENTI AL/PL ATELE T MCH 33.2 pg 26.6-3 3.0 above high normal Not Available [facility] ([facility] [place] [facility] [address] [place], [address], 10/11/2024 21:06:47 10/10/19 25 10/10/2024 CBC WITH DIFFE RENTI AL/PL ATELE T MCHC 32.7 g/dL 31.5-3 5.7 normal Not Available [facility] ([facility] [place] [facility] [address] [place], [address], 10/11/2024 21:06:47 10/10/19 25 10/10/2024 CBC WITH DIFFE RENTI AL/PL ATELE T RDW 11.4 % 11.7-1 5.4 below low normal Not Available [facility] ([facility] [place] [facility] [address] [facility], [place], [address], 10/11/2024 21:06:47 10/10/1910/10/2024 CBC WITH DIFFE RENTI AL/PL ATELE T platelets 298 x10e3 /uL 150-45 0 normal Not Available [facility] ([facility] [place] [facility] [address] [facility], [place], [address], 10/11/2024 21:06:47 10/10/1910/10/2024 CBC WITH DIFFE RENTI AL/PL ATELE T neutrophils 65 % not estab. normal Not Available [facility] ([facility] [place] [facility] [address] [facility], [place], [address], 10/11/2024 21:06:47 10/10/1910/10/2024 CBC WITH DIFFE RENTI AL/PL ATELE T lymphs 22 % not estab. normal Not Available [facility] ([facility] [place] [facility] [address] [facility], [place], [address], 10/11/2024 21:06:47 10/10/1910/10/2024 CBC WITH DIFFE RENTI AL/PL ATELE T monocytes 9 % not estab. normal Not Available [facility] ([facility] [place] [facility] [address] [place], [address], 10/11/2024 21:06:47 10/10/1910/10/2024 CBC WITH DIFFE RENTI AL/PL ATELE T eos 2 % not estab. normal Not Available [facility] ([facility] [place] [facility] [address] [place], [address], 10/11/2024 21:06:47 10/10/19 10/10/2024 CBC WITH DIFFE RENTI AL/PL ATELE T basos 1 % not estab. normal Not Available [facility] ([facility] [place] [facility] [address] [place], [address], 10/11/2024 21:06:47 10/10/19 25 10/10/2024 CBC WITH DIFFE RENTI AL/PL ATELE T immature cells MACHINE RECORDS UNITS SUPERVISOR Not Available [facility] ([facility] [place] [facility] [address] [place], [address], 10/11/2024 21:06:47 10/10/1910/10/2024 CBC WITH DIFFE RENTI AL/PL ATELE T neutrophils (absolute) 5.3 x10e3 /uL 1.4-7. 0 normal Not Available [facility] ([facility] [place] [facility] [address] [place], [address], 10/11/2024 21:06:47 10/10/19 25 10/10/2024 CBC WITH DIFFE RENTI AL/PL ATELE T lymphs (absolute) 1.8 x10e3 /uL 0.7-3. 1 normal Not Available [facility] ([facility] [place] [facility] [address] [place], [address], 10/11/2024 21:06:47 10/10/19 25 10/10/2024 CBC WITH DIFFE RENTI AL/PL ATELE T monocytes(ab solute) 0.7 x10e3 /uL 0.1-0. 9 normal Not Available [facility] ([facility] [place] [facility] [address] [place], [address], 10/11/2024 21:06:47 10/10/19 25 10/10/2024 CBC WITH DIFFE RENTI AL/PL ATELE T eos (absolute) 0.2 x10e3 /uL 0.0-0. 4 normal Not Available [facility] ([facility] [place] [facility] [address] [place], [address], 10/11/2024 21:06:47 03/25/20 25 10/10/2024 CBC WITH DIFFE RENTI AL/PL ATELE T baso (absolute) 0.1 x10e3 /uL 0.0-0. 2 normal Not Available [facility] ([facility] [place] [facility] [address] [facility], [place], [address], 10/11/2024 21:06:47 10/10/19 25 10/10/2024 CBC WITH DIFFE RENTI AL/PL ATELE T immature granulocytes 1 % not estab. Not Available [facility] ([facility] [place] [facility] [address] [facility], [place], [address], 10/11/2024 21:06:47 10/10/19 25 10/10/2024 CBC WITH DIFFE RENTI AL/PL ATELE T immature grans (abs) 0.1 x10e3 /uL 0.0-0. 1 Not Available [facility] ([facility] [place] [facility] [address] [place], [address], 10/11/2024 21:06:47 10/10/19 25 10/10/2024 CBC WITH DIFFE RENTI AL/PL ATELE T NRBC MACHINE RECORDS UNITS SUPERVISOR Not Available [facility] ([facility] [place] [place] [facility] [address] [facility], [place], [address], 10/11/2024 21:06:47 10/10/19 25 10/10/2024 CBC WITH DIFFE RENTI AL/PL ATELE T hematology comments: MACHINE RECORDS UNITS SUPERVISOR Not Available [facility] ([facility] [place] [facility] [address] [facility], [place], [address], 10/11/2024 21:06:47 10/10/19 25 10/10/2024 COMP. METAB OLIC PANEL (14) glucose 94 mg/dL 70-99 normal Not Available [facility] ([facility] [place] [facility] [address] [place], [address], 10/11/2024 21:06:48 10/10/19 25 10/10/2024 COMP. METAB OLIC PANEL (14) BUN 13 mg/dL 8-27 normal Not Available [facility] ([facility] [place] [facility] [address] [facility] [place], [address], 10/11/2024 21:06:48 10/10/19 25 10/10/2024 COMP. METAB OLIC PANEL (14) creatinine 1.71 mg/dL 0.57-1 .00 above high normal Not Available [facility] ([facility] [place] [facility] [address] [facility] [place], [address], 10/11/2024 21:06:48 10/10/19 25 10/10/2024 COMP. METAB OLIC PANEL (14) eGFR 32 mL/mi n/1.7 3 >59 below low normal Not Available [facility] ([facility] [place] [facility] [address] [facility] [place], [address], 10/11/2024 21:06:48 10/10/19 25 10/10/2024 COMP. METAB OLIC PANEL (14) BUN/creatini ne ratio 8 12-28 below low normal Not Available [facility] ([facility] [place] [facility] [address] [facility] [place], [address], 10/11/2024 21:06:48 10/10/19 25 10/10/2024 COMP. METAB OLIC PANEL (14) sodium 140 mmol/ L 134-14 4 normal Not Available [facility] ([facility] [place] [facility] [address] [place], [address], 10/11/2024 21:06:48 10/10/19 25 10/10/2024 COMP. METAB OLIC PANEL (14) potassium 3.9 mmol/ L 3.5-5. 2 normal Not Available [facility] ([facility] [place] [facility] [address] [facility] [place], [address], 10/11/2024 21:06:48 10/10/19 25 10/10/2024 COMP. METAB OLIC PANEL (14) chloride 106 mmol/ L 96-106 normal Not Available [facility] ([facility] [place] [facility]) [address] [place], [address], 10/11/2024 21:06:48 10/10/19 25 10/10/2024 COMP. METAB OLIC PANEL (14) carbon dioxide, total 18 mmol/ L 20-29 below low normal Not Available [facility] ([facility] [place] [facility] [address] [place], [address], 10/11/2024 21:06:48 10/10/19 25 10/10/2024 COMP. METAB OLIC PANEL (14) calcium 9.7 mg/dL 8.7-10 .3 normal Not Available [facility] ([facility] [place] [facility] [address] [place], [address], 10/11/2024 21:06:48 10/10/19 25 10/10/2024 COMP. METAB OLIC PANEL (14) protein, total 6.9 g/dL 6.0-8. 5 normal Not Available [facility] ([facility] [place] [facility] [address] [facility] [place], [address], 10/11/2024 21:06:48 10/10/19 25 10/10/2024 COMP. METAB OLIC PANEL (14) albumin 4.5 g/dL 3.9-4. 9 normal Not Available [facility] ([facility] [place] [facility] [address] [facility] [place], [address], 10/11/2024 21:06:48 10/10/19 25 10/10/2024 COMP. METAB OLIC PANEL (14) globulin, total 2.4 g/dL 1.5-4. 5 Not Available [facility] ([facility] [place] [facility] [address] [facility] [place], [address], 10/11/2024 21:06:48 10/10/19 25 10/10/2024 COMP. METAB OLIC PANEL (14) bilirubin, total <0.2 mg/dL 0.0-1. 2 Not Available [facility] ([facility] [place] [facility] [address] [facility], [place], [address], 10/11/2024 21:06:48 10/10/19 25 10/10/2024 COMP. METAB OLIC PANEL (14) alkaline phosphatase 90 IU/L 44-121 normal Not Available [facility] ([facility] [place] [place] [facility] [address] [facility] [place], [address], 10/11/2024 21:06:48 10/10/19 25 10/10/2024 COMP. METAB OLIC PANEL (14) AST (SGOT) 16 IU/L 0-40 normal Not Available [facility] ([facility] [place] [facility] [address] [place], [address], 10/11/2024 21:06:48 10/10/19 25 10/10/2024 COMP. METAB OLIC PANEL (14) ALT (SGPT) 11 IU/L 0-32 normal Not Available [facility] ([facility] [place] [facility] [address] [facility], [place], [address], 10/11/2024 21:06:48 10/10/19 25 10/10/2024 LIPID PANEL cholesterol, total 137 mg/dL 100-19 9 normal Not Available [facility] ([facility] [place] [facility] [address] [place], [address], 10/11/2024 21:06:48 10/10/19 25 10/10/2024 LIPID PANEL triglyceride s 87 mg/dL 0-149 normal Not Available [facility] ([facility] [place] [facility] [address] [place], [address], 10/11/2024 21:06:48 10/10/19 25 10/10/2024 LIPID PANEL HDL cholesterol 59 mg/dL >39 normal Not Available [facility] ([facility] [place] [facility] [address] [place], [address], 10/11/2024 21:06:48 10/10/19 25 10/10/2024 LIPID PANEL VLDL cholesterol luisito 17 mg/dL 5-40 Not Available [facility] ([facility] [place] [facility] [address] [place], [address], 10/11/2024 21:06:48 10/10/19 25 10/10/2024 LIPID PANEL LDL chol calc ([facility]) 61 mg/dL 0-99 Not Available [facility] ([facility] [place] [facility] [address] [place], [address], 10/11/2024 21:06:48 10/10/19 25 10/10/2024 LIPID PANEL LDL calc comment: MACHINE RECORDS UNITS SUPERVISOR Not Available [facility] ([facility] [place] [facility] [address] [facility], [place], [address], 10/11/2024 21:06:48 10/10/19 25 10/10/2024 HCV ANTIB ODIN CASCA DE(PC R/GEN O) HCV Ab Reacti ve non reacti ve abnormal Not Available [facility] ([facility] [place] [facility] [address] [place], [address], 10/11/2024 21:06:48 10/10/1910/10/2024 HCV ANTIB ODIN CASCA DE(PC R/GEN O) test information: Commen t The quant itati ve range of this assay is 15 IU/mL to 100 keyla on IU/mL . Not Available [facility] ([facility] [place] [facility] [address] [place], [address], 10/11/2024 21:06:48 10/10/19 25 10/11/2024 HCV ANTIB ODIN CASCA DE(PC R/GEN O) hepatitis C quantitation HCV Not Detect ed IU/mL Not Available [facility] ([facility] [place] [facility] [address] [place], [address], 10/11/2024 21:06:48 10/10/19 25 10/11/2024 HCV ANTIB ODIN CASCA DE(PC R/GEN O) HCV log10 MACHINE RECORDS UNITS SUPERVISOR Not Available [facility] ([facility] [place] [facility] [address] [facility], [place], [address], 10/11/2024 21:06:48 10/10/1910/11/2024 HCV ANTIB ODIN CASCA DE(PC R/GEN O) interpretati on: Commen t Posit mando HCV antib odin scree n witho ut the prese nce of HCV RNA is consi stent with a resol nacho past infec tion or a false posit mando HCV antib odin. Consi jay jay repea t testi ng after one month . Not Available [facility] ([facility] [place] [facility] [address] [facility], [place], [address], 10/11/2024 21:06:48 10/10/1910/11/2024 HCV ANTIB ODIN CASCA DE(PC R/GEN O) HCV genotype COMMEN T Not indic ated Not Available [facility] ([facility] [place] [facility] [address] [facility], [place], [address], 10/11/2024 21:06:48 10/10/19 25 10/10/2024 TSH TSH 0.068 uIU/m L 0.450- 4.500 below low normal Not Available [facility] [place] [facility] [address] [facility], [place], [address], 10/11/2024 21:06:49 10/10/1910/10/2024 VITAM IN D, 25-HY [...] um and D. [place]: [facility] . 2. Calixto pho[place] MF, Oz saunders [place], Matteo off-F keyon i MIRAMONTES, et al. Evalu ation , treat ment, and preve ntion of vitam in D defic iency : an Endoc rine Socie ty clini luisito pract ice guide line. JCEM. 2010; 96(7) :1911 -30. Not Available [facility] ([facility] [place] [facility] [address] [place], [address], 10/11/2024 21:06:49 10/10/1910/10/2024 HIV AB/P2 4 AG WITH REFLE X HIV Ab/P24 Ag screen Non Reacti ve non reacti ve HIV-1 /HIV- 2 antib odies and HIV-1 p24 antig en were NOT detec darlin. There is no labor atory evide nce of HIV infec tion. HIV Negat mando Not Available [facility] ([facility] [place] [place] [facility] [address] [facility], [place], [address], 10/11/2024 21:06:49 11/07/1911/07/2024 TSH TSH 0.157 uIU/m L 0.450- 4.500 below low normal Not Available [facility] ([facility] [place] [facility] [address] [place], [address], 11/10/2024 01:07:22 11/07/1911/10/2024 URINE CULTU RE, ROUTI NE urine culture, routine Final report abnormal Not Available [facility] ([facility] [place] [facility] [address] [place], [address], 11/10/2024 01:07:23 11/07/1911/10/2024 URINE CULTU RE, ROUTI [...] ng units per mL Not Available [facility] ([facility] [place] [place] [facility] [address] [facility], [place], [address], 11/10/2024 01:07:23 11/07/19 25 11/10/2024 URINE CULTU RE, ROUTI NE antimicrobia l [...] thopr im/Liu lfa S Not Available [facility] ([facility] [place] [facility] [address] [facility], [place], [address], 11/10/2024 01:07:23 11/07/19 25 11/06/2024 urina lysis , dipst ick Leukocytes Trace Not Available [facility] [address] [place] [address], [place], [address], 11/06/2024 11:41:13 11/07/19 25 11/06/2024 urina lysis , dipst ick Nitrite positi ve Not Available [facility] [address] [place], [address], 11/06/2024 11:41:13 11/07/19 25 11/06/2024 urina lysis , dipst ick Urobilinogen .2 Not Available [facility] [address] [place] [address], [place], [address], 11/06/2024 11:41:13 11/07/19 25 11/06/2024 urina lysis , dipst ick Protein 300 Not Available [address], [place], [address], 11/06/2024 11:41:13 11/07/19 25 11/06/2024 urina lysis , dipst ick pH 5.5 Not Available [address], [address], 11/06/2024 11:41:13 11/07/19 25 11/06/2024 urina lysis , dipst ick Blood Small Not Available [address], [place], [address], 11/06/2024 11:41:13 11/07/19 25 11/06/2024 urina lysis , dipst ick Specific [place] 1.030 Not Available [address], [place], [address], 11/06/2024 11:41:13 11/07/19 25 11/06/2024 urina lysis , dipst ick Ketone Negati ve Not Available [address], [address], 11/06/2024 11:41:13 11/07/19 25 11/06/2024 urina lysis , dipst ick Bilirubin Negati ve Not Available [address] [place], [address], 11/06/2024 11:41:13 11/07/19 25 11/06/2024 urina lysis , dipst ick Glucose Negati ve Not Available [facility] [address] [facility], [place], [address], 11/06/2024 11:41:13 11/07/19 25 11/06/2024 urina lysis , dipst ick Appearance Slight ly Cloudy Not Available [facility] [address] [facility], [place], [address], 11/06/2024 11:41:13 11/07/19 25 11/06/2024 urina lysis , dipst ick Color Yellow Not Available [facility] [address] [place] [address], [place], [address], 11/06/2024 11:41:13 09/22/19 25 09/13/2023 MAMMO , scree renan, bilat eral No observ ation record ed. [facility] Not Available 2024 12:17:32 10/06/19 25 09/28/2024 US, duple x, renal arter y No observ ation record ed. [facility] Scheduling Department -New Scheduling Process [address] [place] [address], [place], [address], 10/05/2024 12:31:18 10/31/19 25 10/23/2024 DEXA No observ ation record ed. [email or web address] [facility] Scheduling Department -New Scheduling Process [facility] [address], [place], [address], 10/30/2024 10:37:10 01/11/20 25 01/03/2025 LDCT, chest , for lung cance r scree renan No observ ation record ed. [facility] Scheduling Department -New Scheduling Process [facility] [address], [place], [address], 01/10/2025 16:30:35 Result Notes None recorded. Problems Name Problem SNOMED Code Status Onset Date Resolution Date Notes Provider Name and Address Organization Details Recorded Time Acute urinary tract infection 476517736 Completed 202410/09/2024 ADOLFO Gutierrez [address] [place] [address], [address], [employer] 14:22:06 Chronic pain 77050115 Active 2024 ADOLFO Gutierrez [address] [place] [address], [address] 8, [employer] 10:35:41 Acute right otitis media 737724305 Completed 202410/09/2024 ADOLFO Gutierrez [address] [place] [address], [address] 8, [employer] 10:35:31 Essential hypertensio n 06959795 Active 2024 ADOLFO Gutierrez [address] [place] [address], [address]63[address]-422 8, [employer] 14:35:45 Chronic obstructive pulmonary disease 99029714 Active 2024 ADOLFO Gutierrez [address] [place] [address], 079[address]-470 8, [employer] 10:35:53 Hyperlipide justin 74921664 Active 2024 ADOLFO Gutierrez [address] [place] [address], [address] 8, [employer] 10:36:00 Gastroesoph ageal reflux disease 359012091 Active 2024 ADOLFO Gutierrez [address] [place] [address], [address]83[address] 8, [employer] 5 10:36:21 Vitamin D deficiency 58274308 Active 2024 ADOLFO Gutierrez [address] [place] [address], [address] 8, [employer] 5 10:36:42 Depressive disorder 16522839 Active 2024 ADOLFO Gutierrez [address] [place] [address], [address] 8, [employer] 5 10:36:58 Impacted cerumen 68205129 Active 2024 ADOLFO Gutierrez [address] [place] [address], [address] 8, [employer] 17:54:28 Osteoporosi s 44250213 Active 2024 ADOLFO Gutierrez [address] [place] [address], [address] 8, [employer] 10:36:15 Acute urinary tract infection 768276296 Active 2024 ADOLFO Gutierrez [address] [place] [address], 165[address] 8, [employer] 14:22:06 Hypothyroid ism 76994752 Active 2024 ADOLFO Gutierrez [address] [place] [address], 78891-181 8, [employer] 12:38:58 Gastroesoph ageal reflux disease without esophagitis 738336242 Active 2024 ADOLFO Gutierrez [address] [place] [address], 64[address] 8, [employer] 13:34:44 Senile osteoporosi s 72207124 Active 2024 ADOLFO Gutierrez [address] [place] [address], 96772-204 8, [employer] 13:36:49 Tobacco dependence syndrome 17402563 Active 2024 ADOLFO Gutierrez [address] [place] [address], [address] 8, [employer] 5 13:42:45 Mandibulofa cial dysostosis, macroblepha jorge, macrostomia syndrome 536396069 Active 2024 ADOLFO Gutierrez [address] [place], [address], [employer] 14:22:12 Problem Notes None recorded. Procedures Surgical History Date Name Laterality Status Provider Name and Address Organization Details Recorded Time 10/10/19 25 Cerumen Removal completed ADOLFO Gutierrez [address] [place], [address], [employer] 10/09/2024 17:54:56 09/13/19 24 Most Recent Mammogram completed [employer] 09/21/2024 12:19:51 03/18/20 20 Date of Last Pap Smear completed [employer] 09/21/2024 12:19:37 Angioplasty completed [employer] [facility] [employer] 09/07/2024 08:57:47 Back Surgery completed [employer] 09/07/2024 08:57:47 Hysterectomy completed [employer] 09/07/2024 08:57:47 Tubal Ligation completed [employer] 09/07/2024 08:57:47 Dilation and Curettage completed [employer] 09/07/2024 08:57:47 Total Hysterectomy completed [employer] 09/07/2024 08:57:47 Stent completed [employer]. 09/07/2024 09:11:45 Imaging Results None recorded. Procedure [...] index (BMI) Body height Body temperature Systolic And Diastolic Systolic And Diastolic Systolic And Diastolic Systolic And Diastolic Provider Name and Address Organization Details Last Updated DateTime 5 27217.2 8 g 98 % 98 % 60 /min 26.9 kg/m2 162.56 cm 97.7 [degF] 200/82 mm[Hg] 204/94 mm[Hg] 202/96 mm[Hg] 188/90 mm[Hg] [facility] [employer] [facility] 5 09:50:32 Date Recorded Body height Body mass index (BMI) Body weight Oxygen saturation Oxygen saturation in Arterial blood by Pulse oximetry Heart rate Body temperature Systolic And Diastolic Systolic And Diastolic Systolic And Diastolic Provider Name and Address Organization Details Last Updated DateTime 5 162.56 cm 26.7 kg/m2 82893.9 7 g 98 % 98 % 62 /min 98 [degF] 188/80 mm[Hg] 198/96 mm[Hg] 200/84 mm[Hg] [employer] 5 14:22:04 Date Recorded Body height Body mass index (BMI) Body weight Oxygen saturation Oxygen saturation in Arterial blood by Pulse oximetry Heart rate Body temperature Systolic And Diastolic Systolic And Diastolic Systolic And Diastolic Provider Name and Address Organization Details Last Updated DateTime 5 162.56 cm 25.9 kg/m2 98263.7 3 g 97 % 97 % 58 /min 97.9 [degF] 190/80 mm[Hg] 180/78 mm[Hg] 178/80 mm[Hg] [employer] 5 13:39:19 Date Recorded Body height Body mass index (BMI) Body weight Body temperature Heart rate Oxygen saturation Oxygen saturation in Arterial blood by Pulse oximetry Systolic And Diastolic Systolic And Diastolic Systolic And Diastolic Provider Name and Address Organization Details Last Updated DateTime 5 162.56 cm 25.7 kg/m2 63664.4 2 g 98.2 [degF] 56 /min 95 % 95 % 166/84 mm[Hg] 164/82 mm[Hg] 156/76 mm[Hg] [employer] 5 11:18:46 Date Recorded Body height Body mass index (BMI) Body weight Oxygen saturation Oxygen saturation in Arterial blood by Pulse oximetry Heart rate Body temperature Systolic And Diastolic Systolic And Diastolic Systolic And Diastolic Provider Name and Address Organization Details Last Updated DateTime 5 162.56 cm 25 kg/m2 04405.7 7 g 96 % 96 % 58 /min 98 [degF] 154/74 mm[Hg] 150/86 mm[Hg] 150/78 mm[Hg] [employer] 5 14:48:59 Social History Question Answer Notes LastModified by Organizat ion Details LastModified Time Tobacco Smoking Status Current Every Day Smoker [employer] 09/07/2024 08:57:46 Do You Have An Advance [...] Information not available 09/07/2024 What Type Of Service Superintendent Do You Use? None Information not available [...] Do You Have A Medical Power Of [employer]? No Information not available 09/07/2024 What Was [...] anxious, or unable to sleep at night)? [id number] Information not available 09/07/2024 Do you have [...] Acid Reflux (GERD) Y Thyroid Problems Y Asthma Y Depression Y Lung Disease Y Bladder or Kidney [...] Vaccine Type Date Status Note Provider Nam mack and Address Organization Details Recorded Time Influenza, high-dose, quadrivalent, PF 08/31/2023 completed [employer] null, [employer] 09/07/2024 08:57:57 COVID-19, mRNA, LNP-S, PF, 30 mcg/0.3 mL dose 06/03/2021 completed [employer] null, [employer] 09/07/2024 08:57:57 COVID-19, mRNA, LNP-S, PF, 50 mcg/0.5 mL 08/31/2023 completed [employer] null, [employer] 09/07/2024 08:57:57 Influenza, split virus, quadrivalent, PF 04/14/2020 completed [employer] null, [employer] 09/07/2024 08:57:57 COVID-19, mRNA, LNP-S, PF, 30 mcg/0.3 mL dose 10/29/2020 completed Not Available [facility] 13:03:49 COVID-19, mRNA, LNP-S, PF, 30 mcg/0.3 mL dose 12/03/2020 completed Not Available [facility] 13:03:49 Past Encounters Encounter ID Performer Location Encounter Start Date Encounter Closed Date Diagnosis/Indication Diagnosis SNOMED-CT Code Diagnosis ICD10 Code Diagnosis Note [id number] ADOLFO Gutierrez [facility] [address] [place] [address] 09/07/2024 08:42:23 09/07/2024 09:44:13 Dysuria 48073802 R30.0 Acute urin chiqui tract infection 120806154 N39.0 Chronic pain 76363537 G8 9.29 Essential hypertension 18257417 I10 Given 0.1 mg clonidine in office today with improvemen t of BPPatient states she forgot to take her regular meds Acute righ t otitis media 307057104 H66.91 [id number] ADOLFO Gutierrez [facility] [address] [place] [address] 2 09/20/2024 14:12:39 09/20/2024 14:35:31 Essential hypertension 32418890 I10 Currently taking Lisinopril , Metoprolol Will add hydralazin eSon will check BP at home over the weekendRen al artery duplex to check stentsRefe r back to cardiology To ER if severe pain, shortness of breath, chest pain, etc. Body mass index 25-29 - overweight 492493199 Z68.26 [id number] ADOLFO Gutierrez [facility] [address] [place] [address] 10/09/2024 09:28:51 10/09/2024 10:54:34 Screening for osteoporosis 606343041 Z13.820 Essential hypertension 78585635 I10 HIV screening 834758970 Z11.4 Hepatitis C screening 41 8384180 Z11.59 Impacted cerumen 2474105 6 H61.21 Irrigated without issues [id number] ADOLFO Gutierrez [facility] [address] [place] [address] 11/06/2024 10:58:39 11/06/2024 12:08:07 Screening for malignant neoplasm of colon 847365104 Z12.[address] imulating hormone level below reference range 018028432 R94.6 Dysuria 97204540 R30.0 Leukocytes in urine 2757 84179 R82.79 Acute urin chiqui tract infection 533522962 N39.0 Hypothyroidism 93849753 E03.9 [id number] ADOLFO Gutierrez [facility] [address] [place] [address] 2 12/25/2024 12:56:22 12/25/2024 13:45:23 Hypothyroidism 68915715 E03.9 Chronic ob structive pulmonary disease 96034613 J44.9 Depressive disorder 3548 9007 F32.A Chronic pain 21997642 G8 9.29 Essential hypertension 08550807 I10 Hyperlipidemia 79386290 E78.5 Vitamin D deficiency 347 89730 M81.0 Gastroesop hageal reflux disease without esophagitis 841869076 K21.9 Senile osteoporosis 1804 0001 M81.0 Osteoporosis 31334780 M8 1.0 Tobacco de pendence syndrome 67869478 F17.200 Goals Section Goal Description Progress Status [...] Concerns Section Related Observation LastModified by Organization [employer] LastModified Time None Recorded Concern Status LastModified by Organization Details LastModified Time Essential hypertension Active Alida Garza Not Available 12/25/2024 17:46 :52 Chronic obstructive pulmonary disease Active Alida Garza Not Available 12/25/2024 17: 47:20 Advance Directives Directive N: Payers Insurance Date Sequence Insurance Name Policy Number Policy Howard Covered Member ID Howard Member ID Guarantor Name 12/25/2024 [place] Jocelyn Clark [id number] Jocelyn Clark 12/25/2024 1 [place]/A DVANT[place] - HMO) [id number] Jocelyn Clark [id number] Jocelyn Clark Notes Date Note Type [...] to be in a pain clinic in [place] but had trouble with transportation. ADOLFO Gutierrez [address] [place] [address], [address], [facility] [employer] 09/07/2024 11:46:55 09/20/2024 text/html Patient presents [...] if related to kidneys. ADOLFO Gutierrez [address] [place], [address], [employer] 09/20/2024 15:11:48 10/09/2024 text/html Medicare Annual Wellness [...] examDoing wellCan't hear out of right ear [facility] cardiology last week and they changed her BP meds ADOLFO Gutierrez [address] [place], [address], [employer] 10/09/2024 17:55:37 11/06/2024 text/html Patient presents for followup. Needs TSH to check Synthroid dose. C/O dysuria for a few days.She has seen several specialists recently. Some of her meds are costly and the specialist appointments are costly. SHe is supposed to have hip injections next week but has to pay almost $400 up front and isn't sure if she can. ADOLFO Gutierrez [address] [place], [address], [employer] 11/08/2024 15:21:08 12/25/2024 text/html Patient presents for followup.History of hypothyroidism. Stable on Synthroid.History of COPD. She is doing well with Brextri.History of HTN. Has been seeing us as well as cardiology. Blood pressure today is still slightly elevated but is the best it has ever been. Denies headache, chest pain, vertigo, dyspnea. ADOLFO Gutierrez [address] [place], [address], [facility] [employer] 12/27/2024 13:20:07 OBGyn Episode No OBEpisode recorded.
[2025-01-24 18:10] VITALS: BP 210/87; PULSE 53; RESP 15; TEMP 36.7; O2SAT 98; BMI 24.9
--- NOTE | 2025-01-24 18:16 | XR_ITS ---
PROCEDURE INFORMATION: Exam: XR Chest Exam date and time: 01/24/2025 7:42 PM Age: 69 years old Clinical indication: Other: Upper abdominal pain/chest pain TECHNIQUE: Imaging protocol: Radiologic exam of the chest. Views: 1 view. COMPARISON: CT LUNG SCREENING 01/03/2025 2:18 PM FINDINGS: Lungs: Pleuroparenchymal scarring of the lung bases with subsegmental atelectasis is present without consolidations or pleural effusions that project above the diaphragm. Pleural spaces: Unremarkable. No pleural effusion. No pneumothorax. Heart/Mediastinum: Unremarkable. No cardiomegaly. Bones/joints: Unremarkable. IMPRESSION: Pleuroparenchymal scarring of the lung bases with subsegmental atelectasis is present without consolidations or pleural effusions that project above the diaphragm.
--- NOTE | 2025-01-24 18:16 | CT_ITS ---
PROCEDURE INFORMATION: Exam: CT Abdomen And Pelvis With Contrast Exam date and time: 01/24/2025 7:39 PM Age: 69 years old Clinical indication: Nausea and vomiting; Abdominal pain; Epigastric; Additional info: Epigastric pain, n/v/d TECHNIQUE: Imaging protocol: Computed tomography of the abdomen and pelvis with contrast. Radiation optimization: All CT scans at this facility use at least one of these dose optimization techniques: automated exposure control; mA and/or kV adjustment per patient size (includes targeted exams where dose is matched to clinical indication); or iterative reconstruction. Contrast material: ISOVUE; Contrast volume: 75 ml; Contrast route: IV; COMPARISON: CT ABDOMEN WO CON 01/27/2023 5:28 PM FINDINGS: Lungs: Bibasilar calcified nodules compatible with granulomas. Liver: Normal. No mass. Gallbladder and biliary ducts: Dependently layering hyperattenuating 6.7 mm structure is noted within the gallbladder fossa without wall thickening, or pericholecystic fluid. Pancreas: Normal. No ductal dilation. Spleen: Multiple benign-appearing calcific densities of the spleen. Adrenal glands: Normal. No mass. Kidneys and ureters: Multiple Bosniak 1 renal cystic lesions defined as homogeneous and fluid density (-9 to 20 HU), no septations or calcifications, having guillaume smooth and thin. Largest cyst measures 2.6 cm. No follow-up recommended. Stomach and bowel: Mild thickening and inflammatory changes of the descending colon which can be seen with infectious or inflammatory colitis. Appendix: No evidence of appendicitis. Intraperitoneal space: Unremarkable. No free air. No significant fluid collection. Vasculature: Stenting of the bilateral renal arteries with contrast opacification of the stents. Moderate calcific atherosclerotic disease of the abdominal aorta without aneurysmal dilatation is present. Lymph nodes: Unremarkable. No enlarged lymph nodes. Urinary bladder: Unremarkable as visualized. Reproductive: Unremarkable as visualized. Bones/joints: Postsurgical changes compatible with posterior fusion with transpedicular screws, and vertical stabilizing bars between levels L4 through S1. Moderate loss of intervertebral disc space with degenerative changes involving L1 through S1. Soft tissues: Normal. IMPRESSION: 1. Mild thickening and inflammatory changes of the descending colon which can be seen with infectious or inflammatory colitis. 2. Cholelithiasis without CT evidence of cholecystitis. COMMENTS: Consistent with the [place] [employer]'s Incidental Findings Committee white paper (J Am Chelsea Radiol 2018): Any incidental renal lesion less than 1 cm or classified as too small to characterize, or any incidental cystic renal lesion characterized as simple-appearing, is likely benign. No follow-up imaging is recommended for these lesions per consensus recommendations based on imaging criteria.
[2025-01-24 18:18] LABS: Microscopic, Urine URINE MICROSCOPIC (MICROSCOPIC)
--- NOTE | 2025-01-24 18:19 | HMH.EDGENADL ---
Discharge Plan Disposition Patient Disposition: Home, Self-Care Prescriptions Prescriptions: New dicyclomine 10 mg capsule 10 mg PO BID PRN (Reason: abdominal pain) Qty: 14 0RF No Action albuterol sulfate 90 mcg/actuation HFA aerosol inhaler 2 puff inhalation Q4-6H PRN (Reason: Shortness Of Breath) Qty: 8.5 0RF Rx Instructions: INHALE 2 PUFFS BY MOUTH EVERY 4 TO 6 HOURS NEEDED FOR SHORTNESS OF BREATH OR WHEEZING alendronate 70 mg tablet PO QWEEK levothyroxine [Synthroid] 50 mcg tablet PO DAILY valsartan 320 mg tablet 320 mg PO DAILY Qty: 90 3RF hydralazine 25 mg tablet 25 mg PO PRN calcium carbonate-vitamin D3 600 mg-10 mcg (400 unit) tablet 1 tab PO DAILY Patient Comments: TAKE 1 TABLET BY MOUTH EVERY DAY verapamil 240 mg capsule,ext rel. pellets 24 hr 240 mg PO BID 90 Days Qty: 180 3RF budesonide-formoterol 80-4.5 mcg/actuation HFA aerosol inhaler See Rx Instructions .ROUTE .COMPLEX Qty: 10.2 3RF Dose Instruction: 2 PUFFS INHALED BY MOUTH BY MOUTH TWICE A DAY (RINSE MOUTH AFTER USE) Rx Instructions: 2 PUFFS INHALED BY MOUTH BY MOUTH TWICE A DAY (RINSE MOUTH AFTER USE) metoprolol tartrate 100 mg tablet See Rx Instructions .ROUTE .COMPLEX Qty: 180 2RF Dose Instruction: TAKE 1 TABLET BY MOUTH TWICE DAILY Rx Instructions: TAKE 1 TABLET BY MOUTH TWICE DAILY atorvastatin 80 mg tablet 80 mg PO HS Qty: 90 3RF Rx Instructions: TAKE 1 TABLET BY MOUTH ONCE DAILY pantoprazole 40 mg tablet,delayed release (DR/EC) See Rx Instructions .ROUTE .COMPLEX Qty: 90 2RF Dose Instruction: TAKE ONE TABLET BY MOUTH EVERY DAY Rx Instructions: TAKE ONE TABLET BY MOUTH EVERY DAY lamotrigine 200 mg tablet 200 mg PO DAILY Qty: 30 2RF duloxetine 60 mg capsule,delayed release(DR/EC) 60 mg PO DAILY Qty: 30 3RF Referrals Follow up/Referrals: Alida Garza PA [Primary Care Provider, Medical] - See instructions Sandeep Hernandez II, MD [Staff Physician, Gastroenterology] - See instructions Activity Restrictions/Add. Instructions Additional Instructions/Restrictions: You were found to have inflammation of your colon, could be caused by your constipation. I encourage you to take 4 capfuls of MiraLAX daily until your stools are liquidy. Then decrease it to 1 capful of MiraLAX after this. You can take Tylenol, ibuprofen and are being prescribed Bentyl for abdominal cramping. I am referring you to Dr. Hernandez, with gastroenterology. I encourage you to call the number provided to you to schedule an appointment. Continue to drink plenty of fluids to ensure that you stay hydrated. If you develop any new or worsening symptoms, or if you become concerned for your health for any reason, return to the emergency department for evaluation Clinical Impressions Clinical Impression: Colitis, Constipation, Abdominal pain Instructions Patient Instructions: DI for Acute Abdominal Pain Print Language Print Language: Tongan Discharge ED Provider: Renan Maria Adult HPI General Chief complaint: Abdominal Pain Stated complaint: Vomiting,nausea,constipated,stomach cramps,sweatin Time Seen by Provider: 01/24/25 18:08 Mode of Arrival: Wheelchair Source of Information: Patient and Parent(s) Description of Symptoms (Recalled from ER Triage Doc. by RN): Pt presents to the ED via WC for evaluation of high blood pressure and abd pain. PT states her last BM was diarrhea and before that was tiny balls . PT has a dx of UTI and is currently on day three of abx. PT stated she normally has a heart rate of 50's History of Present Illness HPI narrative: Jocelyn Clark is a 69F with a past medical history of COPD, hypertension, tobacco use, hyperlipidemia, UTI who presents to the emergency department for complaints of abdominal pain, nausea and vomiting, diarrhea and high blood pressure. Patient states that she is on medications to treat her blood pressure and normally her systolic is 160s. She states that today, it has been higher than this. She also woke up with sudden onset upper abdominal pain and has had nausea and vomiting today. She also reports being constipated recently and has had a few episodes of diarrhea and hard stools today. She denies any fevers, cough, Chest pain, shortness of breath. She also notes that she is on day 3 of Macrobid for a urinary tract infection. Patient reports a history of hysterectomy but no other abdominal surgeries. Related Data Home Medications ?Medication ?Instructions ?Recorded ?Confirmed alendronate 70 mg tablet mg PO QWEEK 11/19/24 12/27/24 levothyroxine 50 mcg tablet mcg PO DAILY 11/19/24 12/27/24 (Synthroid) calcium 600 mg (as 1 tab PO DAILY 12/27/24 12/27/24 carbonate)-vitamin D3 10 mcg (400 unit) tablet hydralazine 25 mg tablet 25 mg PO PRN 12/27/24 12/27/24 Previous Rx's ?Medication ?Instructions ?Recorded albuterol sulfate 90 mcg/actuation 2 puff inhalation Q4-6H PRN 08/31/23 aerosol inhaler Shortness Of Breath #8.5 grams budesonide-formoterol HFA 80 See Rx Instructions .Route 01/20/24 mcg-4.5 mcg/actuation aerosol .COMPLEX #10.2 grams inhaler metoprolol tartrate 100 mg tablet See Rx Instructions .Route 05/02/24 .COMPLEX #180 tabs atorvastatin 80 mg tablet 80 mg PO HS #90 tabs 08/02/24 pantoprazole 40 mg tablet,delayed See Rx Instructions .Route 08/24/24 release .COMPLEX #90 tabs valsartan 320 mg tablet 320 mg PO DAILY #90 tabs 10/04/24 verapamil 240 mg 24 hr 240 mg PO BID 90 days #180 caps 11/27/24 capsule,extended release lamotrigine 200 mg tablet 200 mg PO DAILY #30 tabs 12/20/24 duloxetine 60 mg capsule,delayed 60 mg PO DAILY #30 caps 12/25/24 release dicyclomine 10 mg capsule 10 mg PO BID PRN abdominal pain 01/24/25 #14 caps Allergies Allergy/AdvReac Type Severity Reaction Status Date / Time amlodipine Allergy Mild edema Verified 12/27/24 13:25 [facility] Disclaimer: The information contained in this section may have been updated after the patient was seen, as this information can be updated by other users. Medical History Colon cancer screening CKD (chronic kidney disease) Bilateral renal artery stenosis Abnormal renal finding Multiple lung nodules on CT Smoking greater than 30 pack years Allergic rhinitis Paraseptal emphysema Abnormal stress test Atypical chest pain Abnormal EKG Urinary tract infection Pneumonia Hypothyroid History of chest pain High cholesterol Hypertension Surgical History History of renal stent History of back surgery History of hysterectomy Tubal ligation status Family History Other No significant family history Social History Smoking Status: Current every day smoker alcohol intake: never substance use type: denies use current occupational status: other Travel in the last 8 weeks?: None household members: family housing: house Have you lived/traveled outside [place] in past 30 days?: No Contact w/someone who lives/traveled outside [place] past 30 days?: No Exposure to someone with infectious disease in past 14 days?: No Do you have a fever (greater than 100.4 F or 38 C)?: No Have you tested positive for COVID-19?: No Exposed to someone with COVID-19 in past 14 days?: No Do you have a sore throat?: No Do you have a cough?: No Do you have any weakness?: No Do you have any diarrhea?: No Are you experiencing any unusual bleeding?: No Do you have any muscle aches/pain?: No Do you have any abdominal pain?: No Are you experiencing loss of taste or smell?: No Other Medical History Have you received the Flu Vaccine for this season: Yes Have you received the Pneumonia Vaccine: Yes ROS Obtained: Yes Systems reviewed as appropriate & no additional complaints except as documented Physical Exam General General appearance: alert and in no apparent distress Head Head exam: atraumatic Eye Eye exam: Present normal appearance ENT ENT exam: Present normal external ear exam Neck Neck exam: Present full ROM Chest Chest inspection: Present symmetric chest wall rise Respiratory Respiratory exam: Present normal lung sounds bilaterally; Absent respiratory distress Cardiovascular Cardiovascular exam: Present regular rate and normal rhythm Abdominal Exam Abdominal exam: Present soft; Absent tenderness or guarding Extremities Exam Extremities exam: Present normal inspection Back Exam Back exam: Present normal inspection Neurological Exam Neurological exam: Present alert and oriented X3 Psychiatric Psychiatric exam: Present normal affect Skin Skin exam: Present warm and dry Medical Decision Making Medical Records Screening: Per USPSTF and CDC recommendations, given the prevalence of disease in our region, it is our hospital?s policy to screen for HIV and viral Hepatitis for all patients aged 18 and over and those with ongoing risk factors. Herb Inquiry Pt receiving controlled substance: No Vital Signs: 01/24/25 18:10 01/24/25 19:00 01/24/25 19:30 Temperature 98.1 F Temperature Source Oral Pulse Rate 55 L 55 L Pulse Rate [Right] 53 L Respiratory Rate 15 24 28 H Blood Pressure 186/83 H 165/74 H Blood Pressure [Right Arm] 210/87 H Blood Pressure Mean Blood Pressure Mean [Right Arm] 128 02 Sat by Pulse Oximetry 98 99 94 L Oxygen Delivery Method Room Air Room Air Room Air 01/24/25 20:01 01/24/25 20:30 01/24/25 22:16 Temperature 98.9 F Temperature Source Pulse Rate 53 L 55 L 54 L Pulse Rate [Right] Respiratory Rate 23 14 14 Blood Pressure 182/75 H 193/88 H 193/88 H Blood Pressure [Right Arm] Blood Pressure Mean 120 Blood Pressure Mean [Right Arm] 02 Sat by Pulse Oximetry 98 99 Oxygen Delivery Method Room Air Room Air Lab Data Lab Results 01/24/25 18:02: Urine Color Yellow, Urine Appearance Clear, Urine pH 7.0, Ur Specific [place] 1.020, Urine Protein 3+ A, Urine Glucose (UA) Negative, Urine Ketones Trace, Urine Blood 1+ A, Urine Nitrate Negative, Urine Bilirubin Negative, Urine Urobilinogen 0.2, Ur Leukocyte Esterase Negative, Urine WBC 5-10, Ur Squamous Epith Cells Occasional, Urine Bacteria Trace 01/24/25 18:08: WBC 15.2 H, RBC 4.12 L, Hgb 13.3, Hct 39.8, MCV 96.6, MCH 32.3 H, MCHC 33.4, RDW 13.3, Plt Count 291, MPV 9.7, Neut % (Auto) 84.5 H, Lymph % (Auto) 9.6 L, [place] % (Auto) 4.6, Eos % (Auto) 0.1, Baso % (Auto) 0.3, Neut # (Auto) 12.8 H, Lymph # (Auto) 1.5, [place] # (Auto) 0.7, Eos # (Auto) 0.0, Baso # (Auto) 0.1, VBG pH 7.34, VBG pCO2 36.8, VBG pO2 59.6 H, VBG HCO3 19.4 L, VBG Total CO2 20.5 L, VBG O2 Saturation 91.7 H, VBG Base Excess -6.4 L, VBG Lactic Acid 2.0, Magnesium 1.6 01/24/25 18:36: Sodium 136, Potassium 3.4 L, Chloride 103, Carbon Dioxide 18 L, Anion Gap 18.4 H, BUN 19 H, Creatinine 1.50 H, Estimated Creat Clear 37, Estimated GFR 34 L, Est GFR ( Amer) 42 L, Glucose 150 H, Calcium 9.1, Total Bilirubin 0.6, AST 25, ALT 13, Alkaline Phosphatase 75, Troponin I < 0.01, Total Protein 7.5, Albumin 4.6, Globulin 2.9, Albumin/Globulin Ratio 1.6, Lipase 54 01/24/25 21:22: Troponin I < 0.01 01/24/25 18:08 01/24/25 18:36 Orders (Tests/Meds): ED MEDICATIONS Discontinued Medications Generic Name Dose Route Start Last Admin Trade Name Freq PRN Reason Stop Dose Admin Dicyclomine HCl 10 mg 01/24/25 20:44 01/24/25 20:51 Dicyclomine 10mg Capsule PO 01/24/25 20:45 10 mg ONCE ONE Administration Lactated Ringer's 1,000 mls @ 999 mls/hr 01/24/25 18:16 01/24/25 18:26 Lactated Ringer's 1000 Ml Bag IV 01/24/25 19:16 999 mls/hr .Q1H1M ONE Administration Iopamidol 75 ml 01/24/25 19:38 01/24/25 19:39 Iopamidol-370 (76%);100ml Bottle IV 01/24/25 19:39 75 ml ONCE ONE Administration Ketorolac Tromethamine 15 mg 01/24/25 20:49 01/24/25 20:55 Ketorolac 30mg/Ml Vial IV 01/24/25 20:50 15 mg ONCE ONE Administration Morphine Sulfate 4 mg 01/24/25 18:16 01/24/25 18:26 Morphine 4mg/Ml Syringe IV 01/24/25 18:17 4 mg ONCE ONE Administration Ondansetron HCl 4 mg 01/24/25 18:16 01/24/25 18:25 Ondansetron 4mg/2ml Vial IV 01/24/25 18:17 4 mg ONCE ONE Administration Sodium Chloride 10 ml 01/24/25 19:38 01/24/25 19:39 Sodium Chloride 0.9% 10ml Syr (Rad Only) IV 01/24/25 19:39 10 ml ONCE ONE Administration ORDERS Category Date Time Status CT abdomen pelvis w con Stat Cat Scan 01/24/25 18:16 Completed CXR --portable [XR chest portable] Stat Exams 01/24/25 18:16 Completed CBC w/Auto Diff [Complete Blood Count Auto Diff] Stat Lab 01/24/25 18:08 Completed CMP [Comprehensive Metabolic Panel] Stat Lab 01/24/25 18:36 Completed Lipase Stat Lab 01/24/25 18:36 Completed Magnesium Stat Lab 01/24/25 18:08 Completed Troponin I Q3H Lab 01/24/25 21:22 Completed Troponin I Stat Lab 01/24/25 18:36 Completed Urinalysis and Microscopic Stat Lab 01/24/25 18:02 Completed VBG [Venous Blood Gas] Stat RT 01/24/25 18:08 Completed Medical Decision Narrative: Jocelyn Clark is a 69F with a past medical history of COPD, hypertension, tobacco use, hyperlipidemia, UTI who presents to the emergency department for complaints of abdominal pain, nausea and vomiting, diarrhea and high blood pressure. Patient states that she is on medications to treat her blood pressure and normally her systolic is 160s. She states that today, it has been higher than this. She also woke up with sudden onset upper abdominal pain and has had nausea and vomiting today. She also reports being constipated recently and has had a few episodes of diarrhea and hard stools today. She denies any fevers, cough, Chest pain, shortness of breath. She also notes that she is on day 3 of Macrobid for a urinary tract infection. Patient reports a history of hysterectomy but no other abdominal surgeries. On arrival, patient is hypertensive with blood pressure 210/87, borderline bradycardic with a heart rate of 53 (patient states that this is normal for her), afebrile, oxygen saturation 98% on room air. Physical exam, as stated above, reveals an overall nontoxic-appearing female in no acute respiratory distress. She has tenderness in her epigastric region and left lower quadrant without peritonitis. There are some guarding in the epigastric region. Cardiopulmonary exam is grossly unremarkable. Differential diagnosis includes, but is not limited to: Acute pancreatitis, acute cholecystitis, UTI, bowel obstruction, colitis, constipation, ACS, hypertensive emergency, diverticulitis, among others. The most morbid conditions were considered and workup was based on these. Workup in the emergency department included: CT abdomen pelvis with IV contrast, chest x-ray, troponin, lipase, CMP, urinalysis, EKG, VBG with lactate, magnesium level. Patient was treated with 4 mg IV morphine, 4 mg IV Zofran, 1 L lactated ringer. Patient subsequently received IV Toradol and 10 mg of Bentyl orally. X-ray imaging interpreted by me personally. Scarring present bilaterally at the bases but no focal consolidation, pleural effusions, widening of the mediastinum. No pneumothorax. See radiology report for final details. CT imaging was also interpreted by me personally. Moderate amount of stool within the small and large bowel, no bowel obstruction. On formal radiology interpretation, mild thickening and inflammatory changes of the descending colon. Cholelithiasis without cholecystitis. Laboratory studies interpreted by me personally. Leukocytosis with white blood cell count of 15.2. Platelets normal at 291. Lactate normal at 2.0 with no acidosis. Mild hypokalemia of 3.4 but grossly nonactionable. Creatinine elevated at 1.5 and BUN of 19 (this appears to be close to patient's baseline). magnesium normal at 1.6. Bilirubin normal at 0.6. Liver enzymes unremarkable. Troponin negative x 2. Lipase normal at 54. Urine with 3+ protein and 1+ blood but no evidence of infection with 5-10 white blood cells, leukocyte Estrace negative, nitrate negative. On reassessment, patient was sleeping comfortably in her stretcher. She reported significant improvement in her symptoms. Is felt that her symptomatology is best explained by her constipation and mild colitis. Encouraged her to take 4 capfuls of MiraLAX daily until her stools become liquidy and then decrease it to 1 capful daily after this. Will also send referral to GI, Dr. Hernandez, for follow-up. Return precautions were given. All questions were answered. She and her son demonstrated understanding and was in agreement this plan. She was then discharged from the emergency department in stable condition. Critical Care Critical Care Time Critical Care Time: No
[2025-01-24 18:21] LABS: Bilirubin,Urine Negative (Negative); Color,Urine YELLOW (Yellow); Glucose,Urine (UA) Negative (Negative); Ketones,Urine TRACE (Negative); Leukocyte Esterase,Urine Negative (Negative); PH,Urine 7.0 (5.0-8.5); Protein,Urine 3+ (Negative); Specific Gravity, Urine 1.020 (1.005-1.030); Urobilinogen,Urine 0.2 EU/dl (0.2)
[2025-01-24 18:24] LABS: Hematocrit 39.8 % (37.0-47.0); Hemoglobin 13.3 g/dL (12.2-16.2); Immature Granulocytes % 0.9 %; Mean Corpuscular HGB Conc 33.4 g/dL (31.8-35.4); Mean Corpuscular Hemoglobin 32.3 pg (27.0-31.2); Mean Corpuscular Volume 96.6 fl (81-99); Nucleated Red Blood Cells % 0 %; Platelet Count 291 K/mm3 (142-424); Red Blood Count 4.12 M/mm3 (4.20-5.40); Red Cell Distribution Width-SD 47.3 fL; White Blood Count 15.2 K/mm3 (4.8-10.8)
[2025-01-24] MEDS: ONDANSETRON 4MG/2ML VIAL 4 MG IV (18:25)
--- NOTE | 2025-01-24 18:25 | PC.NURSE ---
Notified respiratory of VBG
[2025-01-24] MEDS: MORPHINE 4MG/ML SYRINGE 4 MG IV (18:26)
[2025-01-24] MEDS: LACTATED RINGERS 1000ML 1,000 ML 999 ML IV (18:26)
--- NOTE | 2025-01-24 18:27 | ECG_ITS ---
APPROVED REPORT Exam: Resting ECG HR:51 bpm ECG Measurements Heart Rate 51 AXES [place] 159 P 75 QRSd 108 QRS 59 QT 487 T 46 QTc [address] DEVIATION AND MODERATE T-WAVE ABNORMALITY, CONSIDER ANTERIOR ISCHEMIA [-0.1+ mV T-WAVE IN V3/V4] ABNORMAL ECG UNCONFIRMED REPORT Sinus bradycardia with a ventricular rate of 51 bpm. T wave inversion in V2, lead III. No ST elevations or depressions. Electronically signed by : ANNEMARIE PENALOZA, 01/25/2025 21:34:41
[2025-01-24 18:30] LABS: Lactate Venous 2.0 mmol/L (0.4-2.0); VBG HCO3 19.4 mmol/L (23-30); VBG PCO2 36.8 mmol/L (35-51); VBG PH 7.34 mmol/L (7.31-7.41); VBG PO2 59.6 mmol/L (28-40)
[2025-01-24 18:32] LABS: Magnesium 1.6 mg/dl (1.6-2.3)
[2025-01-24 18:32] LABS: Bacteria,Urine Trace /lpf; Squamous Epithelial Cell,Urine Occasional #/hpf (0-5)
[2025-01-24 18:54] LABS: Chloride 103 mmol/L (98-107)
[2025-01-24 18:55] LABS: Albumin Level 4.6 g/dl (3.5-5.0); Potassium 3.4 mmoL/L (3.5-5.1); Sodium 136 mmol/L (136-145)
[2025-01-24 18:57] LABS: Alanine Aminotransferase 13 U/L (12-78); Aspartate Amino Transferase 25 U/L (14-36); Blood Urea Nitrogen 19 mg/dl (7-17); Creatinine Clearance Estimated 37 mL/min (50-200); Creatinine,Serum 1.50 mg/dl (0.52-1.04); Estimated Glomerular Filt Rate 34 ml/min (>60); GFR (African American) 42 ML/MIN (>60)
[2025-01-24 18:58] LABS: Albumin/Globulin Ratio 1.6 (1.1-1.8); Alkaline Phosphatase 75 U/L (38-126); Anion Gap 18.4 mEq/L (5-15); Bilirubin,Total 0.6 mg/dl (0.2-1.3); Calcium 9.1 mg/dl (8.4-10.2); Carbon Dioxide 18 mmol/L (22.0-30.0); Globulin 2.9 g/dL (1.3-3.2); Glucose 150 mg/dl (74-100); Lipase 54 U/L (23-300); Total Protein,Serum 7.5 g/dl (6.3-8.2)
[2025-01-24 19:00] VITALS: BP 186/83; PULSE 55; RESP 24; O2SAT 99
[2025-01-24 19:17] LABS: Troponin I < 0.01 ng/ml (0.00-0.034)
[2025-01-24 19:30] VITALS: BP 165/74; PULSE 55; RESP 28; O2SAT 94
[2025-01-24] MEDS: SODIUM CHLORIDE 0.9% 10ML SYR (RAD ONLY) 10 ML IV (19:39)
[2025-01-24] MEDS: IOPAMIDOL-370 (76%);100ML BOTTLE 75 ML IV (19:39)
[2025-01-24 20:01] VITALS: BP 182/75; PULSE 53; RESP 23; O2SAT 98
[2025-01-24 20:30] VITALS: BP 193/88; PULSE 55; RESP 14; O2SAT 99
[2025-01-24] MEDS: KETOROLAC 30MG/ML VIAL 15 MG IV (20:55)
[2025-01-24 21:53] LABS: Troponin I < 0.01 ng/ml (0.00-0.034)
[2025-01-24 22:16] VITALS: BP 193/88; PULSE 54; RESP 14; TEMP 37.2; O2SAT 99
== END 2025-01-24 22:17 | disposition home or self-care (01) ==
PROVIDERS: Emergency Provider Student in an Organized Health Care Education/Training Program; PCP Physician Assistant
DX: R10.9 Unspecified abdominal pain (principal); K59.00 Constipation, unspecified; K52.9 Noninfective gastroenteritis and colitis, unspecified; G89.29 Other chronic pain; F41.1 Generalized anxiety disorder; E03.9 Hypothyroidism, unspecified; I10 Essential (primary) hypertension; F17.210 Nicotine dependence, cigarettes, uncomplicated
CPT/HCPCS: 71045; 74177; 80053; 81001; 82803; 83690; 83735; 84484; 85025; 93005; 96361; 96374; 96375; 99285; J1885; J2270; J2405; J7120; Q9967

== ENCOUNTER 2025-06-03 14:53 | Outpatient (CLI) | payer MEDICARE, SELFPAY ==
[2025-06-03 14:59] LABS: Microscopic, Urine URINE MICROSCOPIC (MICROSCOPIC)
[2025-06-03 15:31] LABS: Hematocrit 33.6 % (37.0-47.0); Hemoglobin 11.5 g/dL (12.2-16.2); Mean Corpuscular HGB Conc 34.2 g/dL (31.8-35.4); Mean Corpuscular Hemoglobin 33.8 pg (27.0-31.2); Mean Corpuscular Volume 98.8 fl (81-99); Nucleated Red Blood Cells % 0 %; Platelet Count 261 K/mm3 (142-424); Red Blood Count 3.40 M/mm3 (4.20-5.40); Red Cell Distribution Width-SD 45.2 fL; White Blood Count 8.9 K/mm3 (4.8-10.8)
[2025-06-03 15:56] LABS: Albumin Level 4.0 g/dl (3.5-5.0); Chloride 103 mmol/L (98-107); Potassium 3.6 mmoL/L (3.5-5.1); Sodium 134 mmol/L (136-145)
[2025-06-03 15:59] LABS: Anion Gap 12.6 mEq/L (5-15); Blood Urea Nitrogen 24 mg/dl (7-17); Carbon Dioxide 22 mmol/L (22.0-30.0); Creatinine,Serum 2.10 mg/dl (0.52-1.04); Estimated Glomerular Filt Rate 23 ml/min (>60); GFR (African American) 28 ML/MIN (>60); Phosphorous 3.3 mg/dl (2.5-4.5)
[2025-06-03 16:00] LABS: Calcium 9.1 mg/dl (8.4-10.2); Glucose 76 mg/dl (74-100)
[2025-06-03 19:15] LABS: Bilirubin,Urine Negative (Negative); Color,Urine YELLOW (Yellow); Glucose,Urine (UA) Negative (Negative); Ketones,Urine Negative (Negative); Leukocyte Esterase,Urine 1+ (Negative); PH,Urine 6.0 (5.0-8.5); Protein,Urine 2+ (Negative); Specific Gravity, Urine 1.020 (1.005-1.030); Urobilinogen,Urine 0.2 EU/dl (0.2)
[2025-06-03 20:13] LABS: Bacteria,Urine 1+ /lpf
--- OUTSIDE RECORDS SUMMARY | 2025-06-03 22:35 | XMS_ITS | Continuity of Care Document ---
Author Organization [facility] [employer] [facility] Address [address] [place] [address] Care Team Providers Care Mold Mechanic Name Role Phone [facility] Pain Manag ement [phone] [facility] Solar Sales Consultant JANETTE ALVAREZ Community Health Worker [phone] ALIDA GARZA Primary Care Provider RAYNA Hurley Parking Enforcement Officer Assessment No assessment recorded. Plan of Treatment Reminders Order Date Submit Date Provider Last Modified By Organization Details Last Modified Time Details Appointments None recorded. Lab urinalysis, dipstick 2024 025 [facility], [address] [facility], [place], [address], 12:05:37 culture, urine 2024 025 [facility] [address] [place] [address], [address], 5 18:07:55 TSH, ultra-sensi tive, serum 2024 025 [facility], [address] [place] [address], [address], 5 18:07:54 BMP, serum or plasma 2024 025 [facility], [address] [place] [address] [place], [address], 18:07:53 Referral None recorded. Procedures None recorded. Surgeries None recorded. Imaging None recorded. Medication Orders levofloxaci n 500 mg tablet 2024 [id number], [address] [place], [id number], 05:02:23 conjugated estrogens 0.625 mg/gram vaginal cream 2024 [id number], [address] [place], [id number], 12:10:14 Patient TargetsNo targets recorded. Patient Instructions Encounter Date Encounter Id Patient Instructions Last Modified By Organization Details Last Modified Time 05/20/2025 [id number] painful urinatio n (dysuria): care instructions [id number] Not available 05/20/2025 12:05:36 hypothyroidism: care instructions [id number] Not available 05/20/2025 12:06:37 Reason for Referral None Reported. Results Created Date Observation Date Name Description Value Unit Range Abnormal Flag Note LastModifiedBy Organization Detail LastModifiedTime 05/20/2005/21/2025 BASIC METAB OLIC PANEL (8) glucose 77 mg/dL 70-99 normal Not Available [facility] ([facility]) [address] [place], [address], 05/23/2025 18:07:53 05/20/2005/21/2025 BASIC METAB OLIC PANEL (8) BUN 25 mg/dL 8-27 normal Not Available [facility] ([facility]) [address] [place], [address], 05/23/2025 18:07:53 05/20/2005/21/2025 BASIC METAB OLIC PANEL (8) creatinine 2.28 mg/dL 0.57-1 .00 above high normal Not Available [facility] ([facility]) [address] [place], [address], 05/23/2025 18:07:53 05/20/20 25 05/21/2025 BASIC METAB OLIC PANEL (8) eGFR 23 mL/mi n/1.7 3 >59 below low normal Not Available [facility] ([facility]) [address] [facility], [place], [address], 05/23/2025 18:07:53 05/20/20 25 05/21/2025 BASIC METAB OLIC PANEL (8) BUN/creatini ne ratio 11 12-28 below low normal Not Available [facility] ([facility]) [address] [facility] [place], [address], 05/23/2025 18:07:53 05/20/20 25 05/21/2025 BASIC METAB OLIC PANEL (8) sodium 136 mmol/ L 134-14 4 normal Not Available [facility] ([facility]) [address] [facility], [place], [address], 05/23/2025 18:07:53 05/20/20 25 05/21/2025 BASIC METAB OLIC PANEL (8) potassium 4.0 mmol/ L 3.5-5. 2 normal Not Available [facility] ([facility]) [address] [facility], [place], [address], 05/23/2025 18:07:53 05/20/20 25 05/21/2025 BASIC METAB OLIC PANEL (8) chloride 103 mmol/ L 96-106 normal Not Available [facility] ([facility]) [address] [facility] [place], [address], 05/23/2025 18:07:53 05/20/20 25 05/21/2025 BASIC METAB OLIC PANEL (8) carbon dioxide, total 18 mmol/ L 20-29 below low normal Not Available [facility] ([facility]) [address] [facility] [place], [address], 05/23/2025 18:07:53 05/20/20 25 05/21/2025 BASIC METAB OLIC PANEL (8) calcium 9.7 mg/dL 8.7-10 .3 normal Not Available [facility] ([facility]) [address] [place], [address], 05/23/2025 18:07:53 05/20/20 25 05/21/2025 TSH TSH 8.750 uIU/m L 0.450- 4.500 above high normal Not Available [facility] ([facility]) [address] [place], [address], 05/23/2025 18:07:54 05/20/2005/23/2025 URINE CULTU RE, LIZ NE urine culture, routine Final report abnormal Not Available [facility] ([facility]) [address] [place], [address], 05/23/2025 18:07:54 05/20/2005/23/2025 URINE CULTU RE, LIZ NE result 1 Escher ichia coli abnormal Cefaz josemanuel with an VENKAT <=16 predi cts susce ptibi lity to the oral agent s cefac lawson, cefdi link, cefpo doxim e, cefpr ozil, cefur oxime , cepha lexin , and lorac arbef when used for thera py of uncom plica darlni urina ry tract infec tions due to E. coli, Klebs iella pneum oniae , and Prote us mirab ilis. Great er than 100,0 00 colon y formi ng units per mL Not Available [facility] ([facility]) [address] [place], [address], 05/23/2025 18:07:54 05/20/2005/23/2025 URINE CULTU RELIZ NE antimicrobia l susceptibili ty Commen t S = Susce ptibl e; I = Inter media te; R = Resis tant P = Posit mando; N = Negat mando MICS are expre ssed in micro grams per mL Antib iotic RSLT# 1 RSLT# 2 RSLT# 3 RSLT# 4 Amoxi cilli n/Cla vulan ic Acid S Ampic illin S Cefaz josemanuel S Cefep david S Cefox itin S Cefpo doxim e S Ceftr iaxon e S Cipro floxa angelito S Ertap enem S Genta micin S Levof loxac in S Merop enem S Nitro furan toin S Piper acill in/Ta zobac malone S Tetra cycli ne S Tobra mycin S Trime thopr im/Liu lfa S Not Available [facility] ([facility]) [address] [facility], [place], [address], 05/23/2025 18:07:54 05/20/2005/20/2025 urina lysis , dipst ick Leukocytes Small Not Available [address], [address], 05/20/2025 11:42:29 05/20/20 25 05/20/2025 urina lysis , dipst ick Nitrite negati ve Not Available [address], [address], 05/20/2025 11:42:29 05/20/20 25 05/20/2025 urina lysis , dipst ick Urobilinogen .2 Not Available [address], [address], 05/20/2025 11:42:29 05/20/20 25 05/20/2025 urina lysis , dipst ick Protein 300 Not Available [address], [address], 05/20/2025 11:42:29 05/20/20 25 05/20/2025 urina lysis , dipst ick pH 6.0 Not Available [address], [address], 05/20/2025 11:42:29 05/20/20 25 05/20/2025 urina lysis , dipst ick Blood Small Not Available [address] [facility], [place], [address], 05/20/2025 11:42:29 05/20/20 25 05/20/2025 urina lysis , dipst ick Specific [place] 1.025 Not Available [address], [place], [address], 05/20/2025 11:42:29 05/20/20 25 05/20/2025 urina lysis , dipst ick Ketone Negati ve Not Available [address], [place], [address], 05/20/2025 11:42:29 05/20/20 25 05/20/2025 urina lysis , dipst ick Bilirubin Negati ve Not Available [address], [place], [address], 05/20/2025 11:42:29 05/20/20 25 05/20/2025 urina lysis , dipst ick Glucose Negati ve Not Available [address], [place], [address], 05/20/2025 11:42:29 05/20/20 25 05/20/2025 urina lysis , dipst ick Appearance Cloudy Not Available [address], [place], [address], 05/20/2025 11:42:29 05/20/20 25 05/20/2025 urina lysis , dipst ick Color Yellow Not Available [address], [place], [address], 05/20/2025 11:42:29 Result Notes None recorded. Problems Name Problem SNOMED Code Status Onset Date Resolution Date Notes Provider Name and Address Organization Details Recorded Time Acute urinary tract infection 262916366 Completed 202410/09/2024 ADOLFO Gutierrez [address] [place] [address], [address], [employer] 14:22:06 Chronic pain 42154644 Active 2024 ADOLFO Gutierrez [address] [place] [address], [address] 8, [employer] 10:35:41 Acute right otitis media 822868639 Completed 202410/09/2024 ADOLFO Gutierrez [address] [place] [address], [address] 8, [employer] 10:35:31 Essential hypertensio n 42790171 Active 2024 ADOLFO Gutierrez [address] [place] [address], [address] 8, [employer] 14:35:45 Chronic obstructive pulmonary disease 85736554 Active 2024 ADOLFO Gutierrez [address] [place] [address], [address] 8, [employer] 10:35:53 Hyperlipide justin 64235925 Active 2024 ADOLFO Gutierrez [address] [place] [address], [address] 8, [employer] 10:36:00 Gastroesoph ageal reflux disease 878705512 Active 2024 ADOLFO Gutierrez [address] [place] [address], [address] 8, [employer] 10:36:21 Vitamin D deficiency 92746716 Active 2024 ADOLFO Gutierrez [address] [place] [address], [address] 8, [employer] 5 10:36:42 Depressive disorder 66460357 Active 2024 ADOLFO Gutierrez [address] [place] [address], [address] 8, [employer] 5 10:36:58 Impacted cerumen 95281272 Active 2024 ADOLFO Gutierrez [address] [place] [address], [address] 8, [employer] 5 17:54:28 Osteoporosi s 80142418 Active 2024 ADOLFO Gutierrez [address] [place] [address], [address]84[address] 8, [employer] 5 10:36:15 Acute urinary tract infection 831633030 Active 2024 ADOLFO Gutierrez [address] [place] [address], [address]64[address] 8, [employer] 5 14:22:06 Hypothyroid ism 01805005 Active 2024 ADOLFO Gutierrez [address] [place] [address], 57[address] 8, [employer] 5 12:38:58 Gastroesoph ageal reflux disease without esophagitis 167489334 Active 2024 ADOLFO Gutierrez [address] [place] [address], [address] 8, [employer] 5 13:34:44 Senile osteoporosi s 47525809 Active 2024 ADOLFO Gutierrez [address] [place] [address], 829[address] 8, [employer] 5 13:36:49 Tobacco dependence syndrome 27814734 Active 2024 ADOLFO Gutierrez [address] [place] [address], [address] 8, [employer] 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 14:22:12 Acute vaginitis 10404462 Active 2024 ADOLFO Gutierrez [address] [place] [address], 04[address] 8, [employer] 09:22:48 Bacterial urinary infection 336855150 Active 2024 ADOLFO Gutierrez [address] [place] [address], 438[address]486 8, [employer] 11:20:47 Lichen sclerosus of vulva 749769991 Active 2024 ADOLFO Gutierrez [address] [place] [address], 835[address] 8, [employer] 11:21:07 Vaginal dryness 22065187 Active 2024 ADOLFO Gutierrez [address] [place] [address], 665[address]245 8, [employer] 12:05:53 Problem Notes None recorded. Procedures Surgical History Date Name Laterality Status Provider Name and Address Organization Details Recorded Time 10/10/19 25 Cerumen Removal completed ADOLFO Gutierrez [address] [place] [address], [address], [employer] 10/09/2024 17:54:56 09/13/19 24 Most Recent Mammogram completed [employer] 09/21/2024 12:19:51 03/18/20 20 Date of Last Pap Smear completed [employer] 09/21/2024 12:19:37 Angioplasty completed [employer] [facility] [employer] 09/07/2024 08:57:47 Back Surgery completed [facility] [employer] 09/07/2024 08:57:47 Hysterectomy completed [employer] [facility] [employer] 09/07/2024 08:57:47 Tubal Ligation completed [facility] [employer] 09/07/2024 08:57:47 Dilation and Curettage completed [employer] [facility] [employer] 09/07/2024 08:57:47 Total Hysterectomy completed [facility] [employer] [facility] [employer] 09/07/2024 08:57:[address] St[address] [facility] [facility] [employer], [facility]. 09/07/2024 09:11:45 Imaging Results None recorded. Procedure [...] Not Available Not Available No t Available clonidine HCl 0.1 mg tablet Take 1 [...] Not Available metoprolol tartrate 100 mg tablet TAKE 1 TABLET BY MOUTH TWICE DAILY active Not Available Not Available No t Available fluconazole 150 mg tablet TAKE 1 TABLET BY MOUTH EVERY OTHER DAY FOR 3 DAYS 03/05 completed Not Available Not Available Not Available valacyclovi r 1 gram tablet TAKE 1 TABLET BY MOUTH EVERY 8 HOURS FOR 14 DAYS 09/07 completed Not Available Not Available Not Available alendronate 70 mg tablet Take 1 tablet every week by oral route for 90 days, for osteoporo sis. active Not Available Not Available No t Available clobetasol 0.05 % topical cream APPLY THIN LAYER TOPICALLY TO THE AFFECTED AREA TWICE DAILY 05/20 completed Not Available Not Available Not Available [...] Not Available levothyroxi ne 100 mcg tablet 11/06 completed Not Available Not Available Not Available amitriptyli ne 25 mg tablet TAKE 3 TABLET BY MOUTH AT BEDTIME NEEDED FOR SLEEP 09/07 completed Not Available Not Available Not Available gabapentin 800 mg tablet 09/07 completed Not Available Not Available Not Available amlodipine 10 mg tablet TAKE 1 TABLET BY MOUTH DAILY 09/20 completed Not Available Not Available Not Available pantoprazol e 40 mg tablet,dipesh yed release TAKE 1 TABLET BY MOUTH EVERY DAY active Not Available Not Available No t Available mirtazapine 30 mg tablet 09/07 completed Not [...] Available Not Available No t Available Synthroid 75 mcg tablet TAKE 1 TABLET BY MOUTH EVERY DAY active Not Available Not Available No t Available Synthroid 50 mcg tablet TAKE 1 TABLET BY MOUTH EVERY DAY active Not Available Not Available No t Available gabapentin 100 mg capsule 09/07 completed Not Available Not Available Not Available levofloxaci n 500 mg tablet Take 1 tablet every 24 hours by oral route for 7 days. 06/03 completed Not Available Not Available Not Available [...] completed Not Available Not Available Not Available dicyclomine 10 mg capsule TAKE 1 CAPSULE BY MOUTH TWICE DAILY NEEDED FOR ABDOMINAL PAIN 02/26 completed Not Available Not Available Not Available [...] completed Not Available Not Available Not Available Premarin 0.625 mg/gram vaginal cream INSERT 07/19 APPLICATO RFUL VAGINALLY 2 TIMES A WEEK active Not Available Not Available No t Available nitrofurant oin monohydrate /macrocryst als 100 mg capsule TAKE 1 CAPSULE BY MOUTH EVERY 12 HOURS FOR 7 DAYS 02/26 completed Not Available Not Available Not Available duloxetine 60 mg capsule,del ayed release TAKE 1 CAPSULE BY MOUTH EVERY DAY active Not Available [...] Not Available Not Available No t Available Jeovanytri [employer] 160 mcg-9mcg-4. 8mcg/actuat ion HFA aerosol [...] mass index (BMI) Body weight Body temperature Oxygen saturation Oxygen saturation in Arterial blood by Pulse oximetry Heart rate Systolic And Diastolic Systolic And Diastolic Provider Name and Address Organization Details Last Updated DateTime 162.56 cm 23.6 kg/m2 89627.5 9 g 97.6 [degF] 98 % 98 % 56 /min 152/80 mm[Hg] 150/78 mm[Hg] [facility] [employer] 11:46:25 Social History Question Answer Notes LastModified by Organizat ion Details LastModified Time Tobacco Smoking Status Current Every Day Smoker [facility] [employer] [employer] [place] 09/07/2024 08:57:46 Do You Have An Advance [...] Caffeine Consumption? Heavy Information not available 09/07/2024 Are You A Caregiver? No Information not available 05/20/2025 What Type Of Technology Program Manager Do You Use? None Information not available [...] You Used? Pot Information not available 09/07/2024 What Is The Highest Grade Or Level Of School You Have Completed Or The Highest Degree You Have Received? [id number] Information not available 05/20/2025 How Many Days Of Moderate To Strenuous Exercise, Like A Brisk Walk, Did You Do In The Last 7 Days? 1 Information not available 09/07/2024 Have There Been Any Changes To Your Family Or Social Situation? No Information not available 09/07/2024 Are There Any Guns Present In Your Home? No Information not available 09/07/2024 Which Of Your Hands Is Dominant? Right Information not available 09/07/2024 Do You Engage In Moderate/heavy Exercise (e.g. Brisk Walk, Jogging, Strength Training, Etc)? No Information not available 05/20/2025 What Is Your Home Situation? Other Information not available 09/07/2024 How Many Times In The Past Year Have You Used An Illegal Drug Or Used A Prescription Medication For Nonmedical Reasons? 0 Information not available 05/20/2025 How Many Years Have You Used Illicit Or Recreational Drugs? 5 Information not available 09/07/2024 Where Do You Live? SingleLevelHouse Information not available 05/20/2025 Do You Have A Medical Power Of Educational Technology Coordinator? No Information not available 09/07/2024 What Was The Date Of Your Most Recent Tobacco Screening? 05/20/2025 Information not available 05/20/2025 What Is Your Current Pack Years? 30ormorepackyears Information no t available 05/20/2025 Do You Have Any Pets? Yes Information not available 09/07/2024 What Is Your Relationship Status? Information not available 09/07/2024 Have You Repeated Any Grades? No Information not available 09/07/2024 Do You Wear A Seatbelt When Driving Or As A Passenger? Yes Information not available 05/20/2025 Do You Use Your Seat Belt Or [...] You Passively Exposed To Smoke? No Information not available 09/07/2024 Are There Any Smokers In Your House? Yes Information not available 09/07/2024 How Much Tobacco Do You Smoke? 1 PPD Information not available 09/07/2024 Do You Participate In Social Media? No Information not available 09/07/2024 What Types Of Sporting Activities Do You Participate In? None Information not available 05/20/2025 Do You Use Sunscreen Routinely? No Information not available 09/07/2024 Has Tobacco Cessation Counseling Been Provided? Yes Information not available 09/07/2024 On What Date Was Tobacco Cessation Counseling Provided? 05/20/2025 Information not available 05/20/2025 How Many Years Have You Smoked Tobacco? 58 Information not available 09/07/2024 Have You Recently Traveled Abroad? No Information not available 09/07/2024 Have You Used IV Drugs? No Information not available 05/20/2025 Do You Have Difficulty Walking Or Climbing Stairs? Yes Information not available 09/07/2024 Are You Currently In School? No Information not available 09/07/2024 What Contraceptive Method Was Reported At Start Of This Visit? Female Sterilization Information not available 09/07/2024 Do You Feel Safe In Your Home? Yes Information not available 05/20/2025 Do You Have Any Dietary Restrictions? No Information not available 09/07/2024 Sex: Unknown Functional Status Question Answer Note LastModified by Organizat ion Details LastModified Time Do you use any illicit or recreational drugs? Yes Information not available 09/07/2024 Do you feel safe in your relationship? Yes Information n ot available 05/20/2025 Do you or have you ever used any other forms of tobacco or nicotine? No Information not available 09/07/2024 What is your level of alcohol consumption? None Information not available 09/07/2024 Are you currently employed? No Information not available 09/07/2024 Do you have transportation difficulties? No Information not available 09/07/2024 Are you able to walk independently without assistance or assistive devices? YESWOREST Information not available 09/07/2024 Do you have difficulty doing errands alone? Yes Information not available 09/07/2024 Are you able to care for yourself independently? Yes Information not available 09/07/2024 Do you have difficulty dressing, bathing, grooming, or toileting? No Information not available 09/07/2024 What is your exercise level? Moderate Information not available 09/07/2024 Mental Status Question Answer Note LastModified by Organizat ion Details LastModified Time Do you feel stressed (tense, restless, nervous, or anxious, or unable to sleep at night)? [id number] Information not available 05/20/2025 Do you have difficulty concentrating, remembering or [...] Condition Response Anxiety Disorder Y Other Y Hospitalizations N Acid Reflux (GERD) Y Emergency room visit since last appointm ent. N Thyroid Problems Y Depression Y Asthma Y [...] Details Recorded Time Influenza, high-dose, quadrivalent, PF 4 completed [facility] [employer] 09/07/2024 08:57:57 COVID-19, mRNA, LNP-S, PF, 30 mcg/0.3 mL dose 1 completed [employer] [employer] 09/07/2024 08:57:57 COVID-19, mRNA, LNP-S, PF, 50 mcg/0.5 mL 4 completed [employer] [employer] 09/07/2024 08:57:57 Influenza, split virus, quadrivalent, PF 0 completed [employer] [employer] 09/07/2024 08:57:57 COVID-19, mRNA, LNP-S, PF, 30 mcg/0.3 mL dose 1 completed Not Available [facility] 05/20/2025 11:29:44 COVID-19, mRNA, LNP-S, PF, 30 mcg/0.3 mL dose 1 completed Not Available [facility] 05/20/2025 11:29:44 zoster recombinant 5 completed Not Available [facility] 05/20/2025 11:29:44 Influenza, high-dose, trivalent, PF 5 completed Not Available [facility] 05/20/2025 11:29:44 Pneumococcal conjugate PCV20, polysaccharide NPP695 conjugate, adjuvant, PF 5 completed Not Available [facility] 05/20/2025 11:29:44 RSV, recombinant, protein subunit RSVpreF, adjuvant reconstituted, 0.5 mL, PF 5 completed Not Available [facility] 05/20/2025 11:29:44 Tdap 5 completed Not Available [facility] 05/20/2025 11:29:44 Past Encounters Encounter ID Performer Location Encounter Start Date Encounter Closed Date Diagnosis/Indication Diagnosis SNOMED-CT Code Diagnosis ICD10 Code Diagnosis IMO Codes Diagnosis Note [id number] ADOLFO Gutierrez [facility] [address] [place] [address] 05/20/2025 11:29:13 05/20/2025 12:05:20 Dysuria 88101034 R30.0 40433 Abnormal urinalysis 1672 66985 R82.90 [id number] Hypothyroidism 55693146 E03.9 [id number] Serum crea tinine above reference range 840447496 R79.89 717316 Acute urin chiqui tract infection 033473396 N39.0 233250 Vaginal dryness 37019531 N89.8 [id number] Goals Section Goal Description Progress Status Start [...] Member ID Howard Member ID Guarantor Name 05/20/2025 1 [place] [employer]/A DVANTAGE - HMO) [id number] Jocelyn Clark [id number] Jocelyn Clark Notes Date Note Type Note Provider Name and Address Organization Details Recorded Time 05/20/2025 text/html ROS as noted in the HPI Dysuria and frequency X 2 days. No fever. Has had 4 or 5 UTIs in the past year. ADOLFO Gutierrez [address] [place] [address], [address], [place] - [employer] 05/20/2025 14:18:23 OBGyn Episode No OBEpisode recorded.
--- OUTSIDE RECORDS SUMMARY | 2025-06-03 22:35 | XMS_ITS | Data Portability ---
Author Organization [facility] [employer] [facility] Address [address] [place] [address] Care Team Providers Care Butter Wrapper Name Role Phone [facility]ment [phone] [facility] Apparel Patternmaker JANETTE ALVAREZ Community Health Worker ALIDA GARZA Primary Care Provider RAYNA Hurley Security Team Lead Assessment Encounter Date Assessment Date Assessment LastModified by Organization Details LastModified Time 02/26/2025 02/26/2025 Patient presents with symptoms of UTI. Results of dipstick were negative for UTI. Advised to drink clear fluids, Tylenol for pain and take prescribed medications as instructed. Patient encouraged to follow up within 1 week if not improving. [email or web address] Not available 02/28/2025 16:28:59 Plan of Treatment Reminders Order Date Submit Date Provider Last Modified By Organization Details Last Modified Time Details Appointments None recorded. Lab urinalysis, dipstick 2024 025 [email or web address] [facility], [address] [facility], [place], [address], 12:05:37 culture, urine 2024 025 [place] [facility] ([facility], [address] [place] [address], [place], [address], 18:07:55 TSH, ultra-sensi tive, serum 2024 025 [facility] ([place]), [address], [place], [address], 5 18:07:54 BMP, serum or plasma 2024 025 [facility] ([place]), [address], [place], [address], 18:07:53 culture, urine 2024 025 [facility] ([place]), [address], [place], [address], 5 20:07:47 urinalysis, dipstick [address], [address] [place], [address], 11:31:33 bacterial vaginosis + vaginitis panel, vaginal 2024 025 [facility] ([place]), [address] [place], [address], 20:07:46 urinalysis, dipstick [address], [address] [place], [address], 5 09:15:22 culture, urine 2024 025 [facility] ([place]), [address] [place], [address], 5 00:06:49 TSH, ultra-sensi tive, serum 2024 025 [place] ([place]), [address] [facility], [place], [address], 5 01:07:22 urinalysis, dipstick [id number] [place] [address], [address] [facility], [place], [address], 12:18:29 culture, urine 2024 025 [place] [facility], [facility], [place], [address], 5 01:07:23 noninvasive colorectal cancer DNA + occult blood screening, QL, stool 2024 025 [facility], [address], [place], [address], 08:49:31 Referral None recorded. Procedures None recorded. Surgeries None recorded. Imaging LDCT, chest, for lung cancer screening 2024 [place] Scheduling Department -New Scheduling Process, [facility], [place], [address], 11:08:59 Medication Orders levofloxaci n 500 mg tablet 2024 [place] [facility]12, [address], [place], [place], [id number], 5 05:02:23 conjugated estrogens 0.625 mg/gram vaginal cream 2024 025 [place] [facility], [address], [place], [place], [id number], 5 12:10:14 clobetasol 0.05 % topical cream 2024 [facility], [address], [place], [place], [id number], 11:53:26 levofloxaci n 500 mg tablet 2024 025 [facility] #58076, [address] [place], [id number], 5 05:02:23 Diflucan 150 mg tablet 2024 025 [facility]95011, [address] [place] [place], [id number], 5 10:42:14 Fosamax 70 mg tablet 2024 025 [facility] #95498, [address] [place], [id number], 5 13:38:12 Calcium 600 + D(3) 600 mg-10 mcg (400 unit) tablet 2024 025 [facility] #30416, [address] [place], [id number], 5 13:38:34 Breztri Aerosphere 160 mcg-9mcg-4. 8mcg/actuat ion HFA aerosol inhaler 2024 025 [facility]78281, [address] [place] [place], [id number], 5 13:38:31 atorvastati n 10 mg tablet 2024 025 [facility]02024, [address] [place], [id number], 5 17:44:38 pantoprazol e 40 mg tablet,dipesh yed release 2024 025 [facility] #62655, [address] [place], [id number], 5 13:38:26 metoprolol tartrate 100 mg tablet 2024 025 [facility] #43880, [address], [place], [id number], 5 13:38:41 hydralazine 25 mg tablet 2024 025 [facility] #01228, [address], [place], [id number], 5 13:38:38 valsartan 320 mg tablet 2024 025 [facility] #34621, [address], [place], [id number], 13:43:02 verapamil ER (SR) 120 mg tablet,exte nded release 2024 [facility] #35640, [address], [place], [id number], 17:46:48 duloxetine 60 mg capsule,del ayed release 2024 025 [facility] #98388, [address], [place], [id number], 5 13:38:07 lamotrigine 200 mg tablet 2024 025 [facility] #74154, [address], [place], [id number], 5 13:38:36 levothyroxi ne 75 mcg tablet 2024 025 [facility] #85007, [address], [place], [id number], 5 17:46:16 levothyroxi ne 75 mcg tablet 2024 025 [facility] #15061, [address], [place], [id number], 5 17:46:05 Macrobid 100 mg capsule 2024 025 [facility], [address] , [place], [place], [id number], 08:56:50 Patient TargetsNo targets recorded. Patient Instructions Encounter Date Encounter Id Patient Instructions Last Modified By Organization Details Last Modified Time 11/06/2024 [id number] painful urinatio n (dysuria): care instructions [email or web address] Not available 11/06/2024 12:18:29 hypothyroidism: care instructions [email or web address] Not available 11/06/2024 12:47:01 12/25/2024 [id number] deciding about using medicines to quit smoking [email or web address] Not available 12/25/2024 13:43:07 Quitting Tobacco : Care Instructions Not available 12/25/2024 13:43:07 chronic obstructive pulmonary disease (COPD): care instructions Not available 12/25/2024 13:37:52 learning about copd and how to prevent lung infections [email or web address] Not available 12/25/2024 13:37:52 high cholesterol : care instructions [email or web address] Not available 12/25/2024 13:37:53 osteoporosis: care instructions [email or web address] Not available 12/25/2024 13:37:52 chronic pain: care instructions [id number] Not available 12/25/2024 13:37:53 high blood pressure: care instructions [id number] Not available 12/25/2024 13:37:53 learning about high blood pressure [id number] Not available 12/25/2024 13:37:53 learning about mood disorders [id number] Not available 12/25/2024 13:37:53 hypothyroidism: care instructions [email or web address] Not available 12/25/2024 13:37:53 02/26/2025 [id number] painful urinatio n (dysuria): care instructions [email or web address] Not available 02/26/2025 09:15:22 05/20/2025 [id number] painful urinatio n (dysuria): care instructions [id number] Not available 05/20/2025 12:05:36 hypothyroidism: care instructions [email or web address] Not available 05/20/2025 12:06:37 Reason for Referral None Reported. Results Created Date Observation Date Name Description Value Unit Range Abnormal Flag Note LastModifiedBy Organization Detail LastModifiedTime 10/10/1910/10/2024 CBC WITH DIFFE RENTI AL/PL ATELE T WBC 8.0 x10e3 /uL 3.4-10 .8 normal Not Available [facility] ([facility]) [address] [place], [address], 10/11/2024 21:06:47 10/10/1910/10/2024 CBC WITH DIFFE RENTI AL/PL ATELE T RBC 3.92 x10e6 /uL 3.77-5 .28 normal Not Available [facility] ([facility]) [address] [place], [address], 10/11/2024 21:06:47 10/10/1910/10/2024 CBC WITH DIFFE RENTI AL/PL ATELE T hemoglobin 13.0 g/dL 11.1-1 5.9 normal Not Available [facility] ([facility]) [address] [place], [address], 10/11/2024 21:06:47 10/10/1910/10/2024 CBC WITH DIFFE RENTI AL/PL ATELE T hematocrit 39.7 % 34.0-4 6.6 normal Not Available [facility] ([facility]) [address] [place], [address], 10/11/2024 21:06:47 10/10/1910/10/2024 CBC WITH DIFFE RENTI AL/PL ATELE T MCV 101 fL 79-97 above high normal Not Available [facility] ([facility]) [address] [place], [address], 10/11/2024 21:06:47 10/10/19 25 10/10/2024 CBC WITH DIFFE RENTI AL/PL ATELE T MCH 33.2 pg 26.6-3 3.0 above high normal Not Available [facility] ([facility]) [address] [facility], [place], [address], 10/11/2024 21:06:47 10/10/1910/10/2024 CBC WITH DIFFE RENTI AL/PL ATELE T MCHC 32.7 g/dL 31.5-3 5.7 normal Not Available [facility] ([facility]) [address] [facility], [place], [address], 10/11/2024 21:06:47 10/10/1910/10/2024 CBC WITH DIFFE RENTI AL/PL ATELE T RDW 11.4 % 11.7-1 5.4 below low normal Not Available [facility] ([facility]) [address] [facility], [place], [address], 10/11/2024 21:06:47 10/10/1910/10/2024 CBC WITH DIFFE RENTI AL/PL ATELE T platelets 298 x10e3 /uL 150-45 0 normal Not Available [facility] ([facility]) [address] [facility], [place], [address], 10/11/2024 21:06:47 10/10/1910/10/2024 CBC WITH DIFFE RENTI AL/PL ATELE T neutrophils 65 % not estab. normal Not Available [facility] ([facility]) [address] [place], [address], 10/11/2024 21:06:47 10/10/1910/10/2024 CBC WITH DIFFE RENTI AL/PL ATELE T lymphs 22 % not estab. normal Not Available [facility] ([facility]) [address] [place], [address], 10/11/2024 21:06:47 10/10/1910/10/2024 CBC WITH DIFFE RENTI AL/PL ATELE T monocytes 9 % not estab. normal Not Available [facility] ([facility]) [address] [place], [address], 10/11/2024 21:06:47 10/10/19 25 10/10/2024 CBC WITH DIFFE RENTI AL/PL ATELE T eos 2 % not estab. normal Not Available [facility] ([facility]) [address] [place], [address], 10/11/2024 21:06:47 10/10/1910/10/2024 CBC WITH DIFFE RENTI AL/PL ATELE T basos 1 % not estab. normal Not Available [facility] ([facility]) [address] [place], [address], 10/11/2024 21:06:47 10/10/19 25 10/10/2024 CBC WITH DIFFE RENTI AL/PL ATELE T immature cells MARKETING REP Not Available [facility] ([facility]) [address] [place], [address], 10/11/2024 21:06:47 10/10/19 25 10/10/2024 CBC WITH DIFFE RENTI AL/PL ATELE T neutrophils (absolute) 5.3 x10e3 /uL 1.4-7. 0 normal Not Available [facility] ([facility]) [address] [place], [address], 10/11/2024 21:06:47 10/10/19 25 10/10/2024 CBC WITH DIFFE RENTI AL/PL ATELE T lymphs (absolute) 1.8 x10e3 /uL 0.7-3. 1 normal Not Available [facility] ([facility]) [address] [place], [address], 10/11/2024 21:06:47 10/10/19 25 10/10/2024 CBC WITH DIFFE RENTI AL/PL ATELE T monocytes(ab solute) 0.7 x10e3 /uL 0.1-0. 9 normal Not Available [facility] ([facility]) [address] [place], [address], 10/11/2024 21:06:47 10/10/19 25 10/10/2024 CBC WITH DIFFE RENTI AL/PL ATELE T eos (absolute) 0.2 x10e3 /uL 0.0-0. 4 normal Not Available [facility] ([facility]) [address] [facility], [place], [address], 10/11/2024 21:06:47 10/10/19 25 10/10/2024 CBC WITH DIFFE RENTI AL/PL ATELE T baso (absolute) 0.1 x10e3 /uL 0.0-0. 2 normal Not Available [facility] ([facility]) [address] [facility], [place], [address], 10/11/2024 21:06:47 10/10/19 25 10/10/2024 CBC WITH DIFFE RENTI AL/PL ATELE T immature granulocytes 1 % not estab. Not Available [facility] ([facility]) [address] [facility], [place], [address], 10/11/2024 21:06:47 10/10/1910/10/2024 CBC WITH DIFFE RENTI AL/PL ATELE T immature grans (abs) 0.1 x10e3 /uL 0.0-0. 1 Not Available [facility] ([facility]) [address] [facility], [place], [address], 10/11/2024 21:06:47 10/10/1910/10/2024 CBC WITH DIFFE RENTI AL/PL ATELE T NRBC MARKETING REP Not Available [facility] ([facility]) [address] [facility], [place], [address], 10/11/2024 21:06:47 10/10/19 25 10/10/2024 CBC WITH DIFFE RENTI AL/PL ATELE T hematology comments: MARKETING REP Not Available [facility] ([facility]) [address] [place], [address], 10/11/2024 21:06:47 10/10/19 25 10/10/2024 COMP. METAB OLIC PANEL (14) glucose 94 mg/dL 70-99 normal Not Available [facility] ([facility]) [address] [place], [address], 10/11/2024 21:06:48 10/10/19 25 10/10/2024 COMP. METAB OLIC PANEL (14) BUN 13 mg/dL 8-27 normal Not Available [facility] ([facility]) [address] [place], [address], 10/11/2024 21:06:48 10/10/19 25 10/10/2024 COMP. METAB OLIC PANEL (14) creatinine 1.71 mg/dL 0.57-1 .00 above high normal Not Available [facility] ([facility]) [address] [place], [address], 10/11/2024 21:06:48 10/10/19 25 10/10/2024 COMP. METAB OLIC PANEL (14) eGFR 32 mL/mi n/1.7 3 >59 below low normal Not Available [facility] ([facility]) [address] [place], [address], 10/11/2024 21:06:48 10/10/1910/10/2024 COMP. METAB OLIC PANEL (14) BUN/creatini ne ratio 8 12-28 below low normal Not Available [facility] ([facility]) [address] [place], [address], 10/11/2024 21:06:48 10/10/1910/10/2024 COMP. METAB OLIC PANEL (14) sodium 140 mmol/ L 134-14 4 normal Not Available [facility] ([facility]) [address] [place], [address], 10/11/2024 21:06:48 10/10/19 25 10/10/2024 COMP. METAB OLIC PANEL (14) potassium 3.9 mmol/ L 3.5-5. 2 normal Not Available [facility] ([facility]) [address] [place], [address], 10/11/2024 21:06:48 10/10/19 25 10/10/2024 COMP. METAB OLIC PANEL (14) chloride 106 mmol/ L 96-106 normal Not Available [facility] ([facility]) [address] [place], [address], 10/11/2024 21:06:48 10/10/19 25 10/10/2024 COMP. METAB OLIC PANEL (14) carbon dioxide, total 18 mmol/ L 20-29 below low normal Not Available [facility] ([facility]) [address] [place], [address], 10/11/2024 21:06:48 10/10/19 25 10/10/2024 COMP. METAB OLIC PANEL (14) calcium 9.7 mg/dL 8.7-10 .3 normal Not Available [facility] ([facility]) [address] [place], [address], 10/11/2024 21:06:48 10/10/19 25 10/10/2024 COMP. METAB OLIC PANEL (14) protein, total 6.9 g/dL 6.0-8. 5 normal Not Available [facility] ([facility]) [address] [place], [address], 10/11/2024 21:06:48 10/10/19 25 10/10/2024 COMP. METAB OLIC PANEL (14) albumin 4.5 g/dL 3.9-4. 9 normal Not Available [facility] ([facility]) [address] [place], [address], 10/11/2024 21:06:48 10/10/19 25 10/10/2024 COMP. METAB OLIC PANEL (14) globulin, total 2.4 g/dL 1.5-4. 5 Not Available [facility] ([facility]) [address] [place], [address], 10/11/2024 21:06:48 10/10/19 25 10/10/2024 COMP. METAB OLIC PANEL (14) bilirubin, total <0.2 mg/dL 0.0-1. 2 Not Available [facility] ([facility]) [address] [place], [address], 10/11/2024 21:06:48 10/10/19 25 10/10/2024 COMP. METAB OLIC PANEL (14) alkaline phosphatase 90 IU/L 44-121 normal Not Available [facility] ([facility]) [address] [place], [address], 10/11/2024 21:06:48 10/10/19 25 10/10/2024 COMP. METAB OLIC PANEL (14) AST (SGOT) 16 IU/L 0-40 normal Not Available [facility] ([facility]) [address] [place], [address], 10/11/2024 21:06:48 10/10/19 25 10/10/2024 COMP. METAB OLIC PANEL (14) ALT (SGPT) 11 IU/L 0-32 normal Not Available [facility] ([facility]) [address] [place], [address], 10/11/2024 21:06:48 10/10/19 25 10/10/2024 LIPID PANEL cholesterol, total 137 mg/dL 100-19 9 normal Not Available [facility] ([facility]) [address] [place], [address], 10/11/2024 21:06:48 10/10/19 25 10/10/2024 LIPID PANEL triglyceride s 87 mg/dL 0-149 normal Not Available [facility] ([facility]) [address] [place], [address], 10/11/2024 21:06:48 10/10/19 25 10/10/2024 LIPID PANEL HDL cholesterol 59 mg/dL >39 normal Not Available [facility] ([facility]) [address] [place], [address], 10/11/2024 21:06:48 10/10/19 25 10/10/2024 LIPID PANEL VLDL cholesterol luisito 17 mg/dL 5-40 Not Available [facility] ([facility]) [address] [place], [address], 10/11/2024 21:06:48 10/10/19 25 10/10/2024 LIPID PANEL LDL chol calc ([facility]) 61 mg/dL 0-99 Not Available [facility] [address] [place], [address], 10/11/2024 21:06:48 10/10/1910/10/2024 LIPID PANEL LDL calc comment: MARKETING REP Not Available [facility] ([facility]) [address] [place], [address], 10/11/2024 21:06:48 10/10/19 25 10/10/2024 HCV ANTIB ODIN CASCA DE(PC R/GEN O) HCV Ab Reacti ve non reacti ve abnormal Not Available [facility] ([facility]) [address] [place], [address], 10/11/2024 21:06:48 10/10/19 25 10/10/2024 HCV ANTIB ODIN CASCA DE(PC R/GEN O) test information: Commen t The quant itati ve range of this assay is 15 IU/mL to 100 keyla on IU/mL . Not Available [facility] ([facility]) [address] [place], [address], 10/11/2024 21:06:48 10/10/19 25 10/11/2024 HCV ANTIB ODIN CASCA DE(PC R/GEN O) hepatitis C quantitation HCV Not Detect ed IU/mL Not Available [facility] ([facility]) [address] [place], [address], 10/11/2024 21:06:48 10/10/19 25 10/11/2024 HCV ANTIB ODIN CASCA DE(PC R/GEN O) HCV log10 MARKETING REP Not Available [facility] ([facility]) [address] [facility], [place], [address], 10/11/2024 21:06:48 10/10/1910/11/2024 HCV ANTIB ODIN CASCA DE(PC R/GEN O) interpretati on: Commen t Posit mando HCV antib odin scree n witho ut the prese nce of HCV RNA is consi stent with a resol nacho past infec tion or a false posit mando HCV antib odin. Consi jay jay repea t testi ng after one month . Not Available [facility] ([facility]) [address] [facility], [place], [address], 10/11/2024 21:06:48 10/10/1910/11/2024 HCV ANTIB ODIN CASCA DE(PC R/GEN O) HCV genotype COMMEN T Not indic ated Not Available [facility] ([facility]) [address] [place], [address], 10/11/2024 21:06:48 10/10/1910/10/2024 TSH TSH 0.068 uIU/m L 0.450- 4.500 below low normal Not Available [facility] ([facility]) [address] [place], [address], 10/11/2024 21:06:49 10/10/19 25 10/10/2024 VITAM IN D, 25-HY DROXY vitamin D, 25-hydroxy 50.9 NG/mL 30.0-1 00.0 Vitam in D defic iency has been defin ed by the Insti tute of Medic ine and an Endoc rine Socie ty pract ice guide line as a level of serum 25-OH vitam in D less than 20 ng/mL (1,2) . The Endoc rine Socie ty went on to fur er defin e vitam in D insuf ficie ncy as a level betwe en 21 and 29 ng/mL (2). 1. IOM (Inst itute of Medic ine). 2009. Dieta ry refer ence intak es for calci um and D. [place]: The [facility] . 2. [place], [place], Matteo off-F errar i MIRAMONTES, et al. Evalu ation , treat ment, and preve ntion of vitam in D defic iency : an Endoc rine Socie ty clini luisito pract ice guide line. JCEM. 2010; 96(7) :1911 -30. Not Available [facility] ([facility]) [address] [facility], [place], [address], 10/11/2024 21:06:49 10/10/1910/10/2024 HIV AB/P2 4 AG WITH REFLE X HIV Ab/P24 Ag screen Non Reacti ve non reacti ve HIV-1 /HIV- 2 antib odies and HIV-1 p24 antig en were NOT detec darlin. There is no labor atory evide nce of HIV infec tion. HIV Negat mando Not Available [facility] ([facility]) [address] [facility], [place], [address], 10/11/2024 21:06:49 11/07/1911/07/2024 TSH TSH 0.157 uIU/m L 0.450- 4.500 below low normal Not Available [facility] ([facility]) [address] [facility], [place], [address], 11/10/2024 01:07:22 11/07/19 25 11/10/2024 URINE CULTU RE, ROUTI NE urine culture, routine Final report abnormal Not Available [facility] ([facility]) [address] [facility], [place], [address], 11/10/2024 01:07:23 11/07/1911/10/2024 URINE CULTU RE, ROUTI [...] ng units per mL Not Available [facility] ([facility]) [address] [facility], [place], [address], 11/10/2024 01:07:23 11/07/1911/10/2024 URINE CULTU RE, ROUTI [...] thopr im/Liu lfa S Not Available [facility] ([facility]) [address] [facility], [place], [address], 11/10/2024 01:07:23 11/07/1911/06/2024 urina lysis , dipst ick Leukocytes Trace Not Available [facility] [address] [place], [place] [address]ther [facility], [place], [address], 11/06/2024 11:41:13 11/07/1911/06/2024 urina lysis , dipst ick Nitrite positi ve Not Available [address], [place], [address], 11/06/2024 11:41:13 11/07/19 25 11/06/2024 urina lysis , dipst ick Urobilinogen .2 Not Available [address], [place], [address], 11/06/2024 11:41:13 11/07/19 25 11/06/2024 urina lysis , dipst ick Protein 300 Not Available [address], [place], [address], 11/06/2024 11:41:13 11/07/1911/06/2024 urina lysis , dipst ick pH 5.5 Not Available [address], [place], [address], 11/06/2024 11:41:13 11/07/1911/06/2024 urina lysis , dipst ick Blood Small Not Available [address], [place], [address], 11/06/2024 11:41:13 11/07/1911/06/2024 urina lysis , dipst ick Specific Surprise 1.030 Not Available [address], [place], [address], 11/06/2024 11:41:13 11/07/1911/06/2024 urina lysis , dipst ick Ketone Negati ve Not Available [address], [place], [address], 11/06/2024 11:41:13 11/07/19 25 11/06/2024 urina lysis , dipst ick Bilirubin Negati ve Not Available [address], [place], [address], 11/06/2024 11:41:13 11/07/19 25 11/06/2024 urina lysis , dipst ick Glucose Negati ve Not Available [address], [place], [address], 11/06/2024 11:41:13 11/07/19 25 11/06/2024 urina lysis , dipst ick Appearance Slight ly Cloudy Not Available [address], [address], 11/06/2024 11:41:13 11/07/19 25 11/06/2024 urina lysis , dipst ick Color Yellow Not Available [address], [place], [address], 11/06/2024 11:41:13 02/27/20 25 02/28/2025 URINE CULTU RELIZ urine culture, routine Final report Not Available [facility] ([facility]) [address] [facility], [place], [address], 02/28/2025 00:06:49 02/27/20 25 02/28/2025 URINE CULTU RELIZ NE result 1 No growth Not Available [facility] ([facility]) [address] [facility], [place], [address], 02/28/2025 00:06:49 02/27/20 25 02/26/2025 urina lysis , dipst ick Glucose Negati ve Not Available [address], [place], [address], 02/26/2025 08:56:27 02/27/20 25 02/26/2025 urina lysis , dipst ick Bilirubin Negati ve Not Available [address], [place], [address], 02/26/2025 08:56:27 02/27/20 25 02/26/2025 urina lysis , dipst ick Ketone Negati ve Not Available [address], [place], [address], 02/26/2025 08:56:27 02/27/20 25 02/26/2025 urina lysis , dipst ick Specific Surprise 1.020 Not Available [address], [place], [address], 02/26/2025 08:56:27 02/27/20 25 02/26/2025 urina lysis , dipst ick Blood Negati ve Not Available [address], [place], [address], 02/26/2025 08:56:27 02/27/20 25 02/26/2025 urina lysis , dipst ick pH 7.0 Not Available [address], [address], 02/26/2025 08:56:27 02/27/20 25 02/26/2025 urina lysis , dipst ick Protein 300 Not Available [address], [address], 02/26/2025 08:56:27 02/27/20 25 02/26/2025 urina lysis , dipst ick Urobilinogen .2 Not Available [address], [place], [address], 02/26/2025 08:56:27 02/27/20 25 02/26/2025 urina lysis , dipst ick Nitrite negati ve Not Available [address], [place], [address], 02/26/2025 08:56:27 02/27/20 25 02/26/2025 urina lysis , dipst ick Leukocytes Trace Not Available [address], [place], [address], 02/26/2025 08:56:27 02/27/20 25 02/26/2025 urina lysis , dipst ick Appearance Clear Not Available [address], [place], [address], 02/26/2025 08:56:27 02/27/20 25 02/26/2025 urina lysis , dipst ick Color Yellow Not Available [address], [place], [address], 02/26/2025 08:56:27 03/05/20 25 03/06/2025 NUSWA B VAGIN ITIS (VG) atopobium vaginae Modera te - 1 score Not Available [facility] ([facility]) [address] [facility], [place], [address], 03/08/2025 20:07:46 03/05/20 25 03/06/2025 NUSWA B VAGIN ITIS (VG) bvab 2 Modera te - 1 score Not Available [facility] ([facility]) [address] [facility], [place], [address], 03/08/2025 20:07:46 03/05/20 25 03/06/2025 NUSWA B VAGIN ITIS (VG) megasphaera 1 Low - 0 score Calcu late total score by ranulfo ruffin the 3 indiv idual bacte rial vagin osis (BV) marke r score s toget her. Total score is inter prete d as follo ws: Total score 0-1: Indic ates the absen ce of BV. Total score 2: Indet ermin ate for BV. Addit ional clini luisito data shoul d be evalu ated to estab keena a diagn osis. Total score 3-6: Indic ates the prese nce of BV. Not Available [facility] ([facility]) [address] [facility], [place], [address], 03/08/2025 20:07:46 03/05/20 25 03/06/2025 NUSWA B VAGIN ITIS (VG) deja albicans, JAYLA Negati ve negati ve Not Available [facility] ([facility]) [address] [place], [address], 03/08/2025 20:07:46 03/05/20 25 03/06/2025 NUSWA B VAGIN ITIS (VG) deja glabrata, JAYLA Negati ve negati ve Not Available [facility] ([facility]) [address] [place], [address], 03/08/2025 20:07:46 03/05/20 25 03/07/2025 NUSWA B VAGIN ITIS (VG) trich vag by JAYLA Negati ve negati ve Not Available [facility] ([facility]) [address] [place], [address], 03/08/2025 20:07:46 03/05/20 25 03/08/2025 URINE CULTU RE, ROUTI NE urine culture, routine Final report abnormal Not Available [facility] ([facility]) [address] [facility], [place], [address], 03/08/2025 20:07:46 03/05/20 25 03/08/2025 URINE CULTU RE, ROUTI NE result 1 [...] ng units per mL Not Available [facility] ([facility]) [address] [facility], [place], [address], 03/08/2025 20:07:46 03/05/20 25 03/08/2025 URINE CULTU RE, ROUTI NE antimicrobia l [...] S Merop enem S Nitro furan toin I Piper acill in/Ta zobac malone S Tetra cycli ne S Tobra mycin S Trime thopr im/Liu lfa S Not Available [facility] ([facility]) [address] [facility], [place], [address], 03/08/2025 20:07:46 03/05/20 25 03/05/2025 urina lysis , dipst ick Leukocytes Small Not Available [facility] [address], [place], [address], 03/05/2025 10:48:28 03/05/20 25 03/05/2025 urina lysis , dipst ick Nitrite positi ve Not Available [facility] [address] [place] [address], [place], [address], 03/05/2025 10:48:28 03/05/20 25 03/05/2025 urina lysis , dipst ick Urobilinogen .2 Not Available [address], [place], [address], 03/05/2025 10:48:28 03/05/20 25 03/05/2025 urina lysis , dipst ick Protein 300 Not Available [address], [place], [address], 03/05/2025 10:48:28 03/05/20 25 03/05/2025 urina lysis , dipst ick pH 7.0 Not Available [address], [place], [address], 03/05/2025 10:48:28 03/05/20 25 03/05/2025 urina lysis , dipst ick Blood Small Not Available [address], [place], [address], 03/05/2025 10:48:28 03/05/20 25 03/05/2025 urina lysis , dipst ick Specific Surprise 1.030 Not Available [address], [place], [address], 03/05/2025 10:48:28 03/05/20 25 03/05/2025 urina lysis , dipst ick Ketone Negati ve Not Available [facility] [address] [place] [address], [place], [address], 03/05/2025 10:48:28 03/05/20 25 03/05/2025 urina lysis , dipst ick Bilirubin Negati ve Not Available [address], [place], [address], 03/05/2025 10:48:28 03/05/20 25 03/05/2025 urina lysis , dipst ick Glucose Negati ve Not Available [address], [place], [address], 03/05/2025 10:48:28 03/05/20 25 03/05/2025 urina lysis , dipst ick Appearance Cloudy Not Available [address], [place], [address], 03/05/2025 10:48:28 03/05/20 25 03/05/2025 urina lysis , dipst ick Color Yellow Not Available [address], [place], [address], 03/05/2025 10:48:28 05/20/20 25 05/21/2025 BASIC METAB OLIC PANEL (8) glucose 77 mg/dL 70-99 normal Not Available [facility] ([facility]) [address] [facility], [place], [address], 05/23/2025 18:07:53 05/20/20 25 05/21/2025 BASIC METAB OLIC PANEL (8) BUN 25 mg/dL 8-27 normal Not Available [facility] ([facility]) [address] [facility], [place], [address], 05/23/2025 18:07:53 05/20/20 25 05/21/2025 BASIC METAB OLIC PANEL (8) creatinine 2.28 mg/dL 0.57-1 .00 above high normal Not Available [facility] ([facility]) [address] [facility] [place], [address], 05/23/2025 18:07:53 05/20/20 25 05/21/2025 BASIC METAB OLIC PANEL (8) eGFR 23 mL/mi n/1.7 3 >59 below low normal Not Available [facility] ([facility]) [address] [facility] [place], [address], 05/23/2025 18:07:53 05/20/20 25 05/21/2025 BASIC METAB OLIC PANEL (8) BUN/creatini ne ratio 11 12-28 below low normal Not Available [facility] ([facility]) [address] [place], [address], 05/23/2025 18:07:53 05/20/20 25 05/21/2025 BASIC METAB OLIC PANEL (8) sodium 136 mmol/ L 134-14 4 normal Not Available [facility] ([facility]) [address] [place], [address], 05/23/2025 18:07:53 05/20/20 25 05/21/2025 BASIC METAB OLIC PANEL (8) potassium 4.0 mmol/ L 3.5-5. 2 normal Not Available [facility] ([facility]) [address] [place], [address], 05/23/2025 18:07:53 05/20/20 25 05/21/2025 BASIC METAB OLIC PANEL (8) chloride 103 mmol/ L 96-106 normal Not Available [facility] ([facility]) [address] [place], [address], 05/23/2025 18:07:53 05/20/20 25 05/21/2025 BASIC METAB OLIC PANEL (8) carbon dioxide, total 18 mmol/ L 20-29 below low normal Not Available [facility] ([facility]) [address] [place], [address], 05/23/2025 18:07:53 05/20/20 25 05/21/2025 BASIC METAB OLIC PANEL (8) calcium 9.7 mg/dL 8.7-10 .3 normal Not Available [facility] ([facility]) [address] [place], [address], 05/23/2025 18:07:53 05/20/20 25 05/21/2025 TSH TSH 8.750 uIU/m L 0.450- 4.500 above high normal Not Available [facility] ([facility]) [address] [place], [address], 05/23/2025 18:07:54 05/20/20 25 05/23/2025 URINE CULTU RELIZ NE urine culture, routine Final report abnormal Not Available [facility] ([facility]) [address] [place], [address], 05/23/2025 18:07:54 05/20/2005/23/2025 URINE CULTU RELIZ NE result 1 Escher ichia coli abnormal [...] ng units per mL Not Available [facility] ([facility]) [address] [place], [address], 05/23/2025 18:07:54 05/20/20 25 05/23/2025 URINE CULTU RE, ROUTI NE antimicrobia l [...] thopr im/Liu lfa S Not Available [facility] ([facility]) [address] [facility], [place], [address], 05/23/2025 18:07:54 05/20/20 25 05/20/2025 urina lysis , dipst ick Leukocytes Small Not Available [address], [address], 05/20/2025 11:42:29 05/20/20 25 05/20/2025 urina lysis , dipst ick Nitrite negati ve Not Available [address], [address], 05/20/2025 11:42:29 05/20/20 25 05/20/2025 urina lysis , dipst ick Urobilinogen .2 Not Available [address], [address], 05/20/2025 11:42:29 05/20/20 25 05/20/2025 urina lysis , dipst ick Protein 300 Not Available [address], [address], 05/20/2025 11:42:29 05/20/20 25 05/20/2025 urina lysis , dipst ick pH 6.0 Not Available [address], [place], [address], 05/20/2025 11:42:29 05/20/20 25 05/20/2025 urina lysis , dipst ick Blood Small Not Available [address], [place], [address], 05/20/2025 11:42:29 05/20/20 25 05/20/2025 urina lysis , dipst ick Specific Surprise 1.025 Not Available [address], [place], [address], 05/20/2025 11:42:29 05/20/20 25 05/20/2025 urina lysis , dipst ick Ketone Negati ve Not Available [address], [place], [address], 05/20/2025 11:42:29 05/20/20 25 05/20/2025 urina lysis , dipst ick Bilirubin Negati ve Not Available [address], [address], 05/20/2025 11:42:29 05/20/20 25 05/20/2025 urina lysis , dipst ick Glucose Negati ve Not Available [address], [address], 05/20/2025 11:42:29 05/20/20 25 05/20/2025 urina lysis , dipst ick Appearance Cloudy Not Available [address], [address], 05/20/2025 11:42:29 05/20/2005/20/2025 urina lysis , dipst ick Color Yellow Not Available [facility] [address] [facility], [place], [address], 05/20/2025 11:42:29 10/31/19 25 10/23/2024 DEXA No observ ation record ed. [facility] Scheduling Department -New Scheduling Process [address], [place], [address], 10/30/2024 10:37:10 01/11/2001/03/2025 LDCT, chest , for lung cance r scree renan No observ ation record ed. [facility] Scheduling Department -New Scheduling Process [address] [place] [address], [place], [address], 01/10/2025 16:30:35 Result Notes None recorded. Problems Name Problem SNOMED Code Status Onset Date Resolution Date Notes Provider Name and Address Organization Details Recorded Time Acute urinary tract infection 192416727 Completed 202410/09/2024 ADOLFO Gutierrez [address] [place] [address], [address], [employer] 14:22:06 Chronic pain 33567333 Active 2024 ADOLFO Gutierrez [address] [place] [address], [address], [place] [employer] 10:35:41 Acute right otitis media 587168479 Completed 202410/09/2024 ADOLFO Gutierrez [address] [place] [address], [address], [place] [employer] 10:35:31 Essential hypertensio n 67901109 Active 2024 ADOLFO Gutierrez [address] [place] [address], [address]27[address] 8, [place] [employer] 14:35:45 Chronic obstructive pulmonary disease 78817600 Active 2024 ADOLFO Gutierrez [address] [place] [address], [address] 8, [place] [employer] 10:35:53 Hyperlipide justin 98231037 Active 2024 ADOLFO Gutierrez [address] [place] [address], [address]42[address] 8, [place] [employer] 10:36:00 Gastroesoph ageal reflux disease 546947299 Active 2024 ADOLFO Gutierrez [address] [place] [address], [address] 8, [place] [employer] 10:36:21 Vitamin D deficiency 48422632 Active 2024 ADOLFO Gutierrez [address] [place] [address], [address], [place] [employer] 10:36:42 Depressive disorder 52256007 Active 2024 ADOLFO Gutierrez [address] [place] [address], [address] 8, [place] [employer] 10:36:58 Impacted cerumen 73728481 Active 2024 ADOLFO Gutierrez [address] [place] [address], 290[address] 8, [place] [employer] 17:54:28 Osteoporosi s 59176476 Active 2024 ADOLFO Gutierrez [address] [place] [address], 532[address] 8, [place] [employer] 10:36:15 Acute urinary tract infection 187242239 Active 2024 ADOLFO Gutierrez [address] [place] [address], 605[address] 8, [place] [employer] 14:22:06 Hypothyroid ism 32912000 Active 2024 ADOLFO Gutierrez [address] [place] [address], [address] 8, [place] [employer] 5 12:38:58 Gastroesoph ageal reflux disease without esophagitis 072425102 Active 2024 ADOLFO Gutierrez [address] [place] [address], 085[address] 8, [place] [employer] 5 13:34:44 Senile osteoporosi s 87090650 Active 2024 ADOLFO Gutierrez [address] [place] [address], [address], [place] [employer] 5 13:36:49 Tobacco dependence syndrome 21605845 Active 2024 ADOLFO Gutierrez [address] [place] [address], 913[address] 8, [place] - [employer] 5 13:42:45 Mandibulofa cial dysostosis, macroblepha jorge, macrostomia syndrome 165893140 Active 2024 ADOLFO Gutierrez [address] [place] [address], [address] 8, [place] [employer] 5 14:22:12 Acute vaginitis 11797252 Active 2024 ADOLFO Gutierrez [address] [place] [address], 736[address]727 8, [place] [employer] 5 09:22:48 Bacterial urinary infection 223842201 Active 2024 ADOLFO Gutierrez [address] [place] [address], 107[address]147 8, [place] [employer] 5 11:20:47 Lichen sclerosus of vulva 154529058 Active 2024 ADOLFO Gutierrez [address] [place] [address], 88522-336 8, [place] [employer] 5 11:21:07 Vaginal dryness 55156477 Active 2024 ADOLFO Gutierrez [address] [place] [address], 549[address] 8, [place] [employer] 12:05:53 Problem Notes None recorded. Procedures Surgical History Date Name Laterality Status Provider Name and Address Organization Details Recorded Time 10/10/19 25 Cerumen Removal completed ADOLFO Gutierrez [address] [place] [address], [address], [employer] 10/09/2024 17:54:56 09/13/19 24 Most Recent Mammogram completed [employer] 09/21/2024 12:19:51 03/18/20 20 Date of Last Pap Smear completed [employer] 09/21/2024 12:19:37 Angioplasty completed [employer] [facility] [employer] 09/07/2024 08:57:47 Back Surgery completed [employer] 09/07/2024 08:57:47 Hysterectomy completed [employer] 09/07/2024 08:57:47 Tubal Ligation completed [employer] 09/07/2024 08:57:47 Dilation and Curettage completed [employer] 09/07/2024 08:57:47 Total Hysterectomy completed [employer] 09/07/2024 08:57:47 Stent completed [employer] [facility] [employer] 09/07/2024 09:11:45 Imaging Results None recorded. [...] Available Premarin 0.625 mg/gram vaginal cream INSERT 1/2 APPLICATO RFUL VAGINALLY 2 TIMES A WEEK [...] Updated DateTime 5 162.56 cm 25.7 kg/m2 80632.4 2 g 98.2 [degF] 56 /min 95 % 95 % 166/84 mm[Hg] 164/82 mm[Hg] 156/76 mm[Hg] [facility] [employer], [facility]. 5 11:18:46 Date Recorded Body height Body mass index (BMI) Body weight Oxygen saturation Oxygen saturation in Arterial blood by Pulse oximetry Heart rate Body temperature Systolic And Diastolic Systolic And Diastolic Systolic And Diastolic Provider Name and Address Organization Details Last Updated DateTime 5 162.56 cm 25 kg/m2 77098.7 7 g 96 % 96 % 58 /min 98 [degF] 154/74 mm[Hg] 150/86 mm[Hg] 150/78 mm[Hg] [employer] 5 14:48:59 Date Recorded Body height Body mass index (BMI) Body weight Oxygen saturation Oxygen saturation in Arterial blood by Pulse oximetry Heart rate Body temperature Systolic And Diastolic Systolic And Diastolic Systolic And Diastolic Provider Name and Address Organization Details Last Updated DateTime 5 162.56 cm 24.4 kg/m2 66261.8 4 g 98 % 98 % 62 /min 97.8 [degF] 160/80 mm[Hg] 168/80 mm[Hg] 160/80 mm[Hg] [employer] 5 14:56:47 Date Recorded Body height Body mass index (BMI) Body weight Oxygen saturation Oxygen saturation in Arterial blood by Pulse oximetry Heart rate Body temperature Systolic And Diastolic Systolic And Diastolic Provider Name and Address Organization Details Last Updated DateTime 5 162.56 cm 24.4 kg/m2 91325.1 2 g 98 % 98 % 56 /min 98 [degF] 144/78 mm[Hg] 156/70 mm[Hg] [employer] 5 10:45:22 Date Recorded Body height Body mass index (BMI) Body weight Body temperature Oxygen saturation Oxygen saturation in Arterial blood by Pulse oximetry Heart rate Systolic And Diastolic Systolic And Diastolic Provider Name and Address Organization Details Last Updated DateTime 5 162.56 cm 23.6 kg/m2 50721.5 9 g 97.6 [degF] 98 % 98 % 56 /min 152/80 mm[Hg] 150/78 mm[Hg] [employer] 5 11:46:25 Social History Question Answer Notes LastModified by Organizat ion Details LastModified Time Tobacco Smoking Status Current Every Day Smoker [employer]. 09/07/2024 08:57:46 Do You Have An Advance [...] Information not available 05/20/2025 What Type Of Ribbon Weaver Do You Use? None Information not available [...] Or The Highest Degree You Have Received? [id number] Information not available 05/20/2025 How Many Days [...] Do You Have A Medical Power Of Shop Helper? No Information not available 09/07/2024 What Was [...] anxious, or unable to sleep at night)? [id number] Information not available 05/20/2025 Do you have [...] 08:57:46 Medical History Condition Response Other Y Emergency room visit since last appointm ent. N Lung Disease Y Depression Y Anxiety Disorder Y Acid Reflux (GERD) Y Bladder or Kidney Problems Y High Cholesterol Y Fibromyalgia Y Kidney Disease Y Hospitalizations N Thyroid Problems Y Asthma Y Hypertension Y [...] quadrivalent, PF 4 completed [employer], [employer] 09/07/2024 08:57:57 COVID-19, mRNA, LNP-S, PF, 30 mcg/0.3 mL dose 1 completed [employer], [employer] 09/07/2024 08:57:57 COVID-19, mRNA, LNP-S, PF, 50 mcg/0.5 mL 4 completed [employer], [employer] 09/07/2024 08:57:57 Influenza, split virus, quadrivalent, PF 0 completed [employer], [employer] 09/07/2024 08:57:57 COVID-19, mRNA, LNP-S, PF, 30 mcg/0.3 mL dose 1 completed Not Available [facility] 05/20/2025 11:29:44 COVID-19, mRNA, LNP-S, PF, 30 mcg/0.3 mL dose 1 completed Not Available [facility] 05/20/2025 11:29:44 zoster recombinant 5 completed Not Available [facility] 05/20/2025 11:29:44 Influenza, high-dose, trivalent, PF 5 completed Not Available [facility] 05/20/2025 11:29:44 Pneumococcal conjugate PCV20, polysaccharide TPB110 conjugate, adjuvant, PF 5 completed Not Available [facility] 05/20/2025 11:29:44 RSV, recombinant, protein subunit RSVpreF, adjuvant reconstituted, 0.5 mL, PF 5 completed Not Available [facility] 05/20/2025 11:29:44 Tdap 5 completed Not Available [facility] 05/20/2025 11:29:44 Past Encounters Encounter ID Performer Location Encounter Start Date Encounter Closed Date Diagnosis/Indication Diagnosis SNOMED-CT Code Diagnosis ICD10 Code Diagnosis IMO Codes Diagnosis Note [id number] ADOLFO Gutierrez [address] [address] 09/07/2024 08:42:23 09/07/2024 09:44:13 Dysuria 22215314 R30.0 Acute urin chiqui tract infection 222823271 N39.0 Chronic pain 17223581 G8 9.29 Essential hypertension 85519387 I10 Given 0.1 mg clonidine in office today with improvemen t of BPPatient states she forgot to take her regular meds Acute righ t otitis media 994231346 H66.91 [id number] ADOLFO Gutierrez [address] [address] 09/20/2024 14:12:39 09/20/2024 14:35:31 Essential hypertension 36988251 I10 Currently taking Lisinopril , Metoprolol Will add hydralazin eSon will check BP at home over the weekendRen al artery duplex to check stentsRefe r back to cardiology To ER if severe pain, shortness of breath, chest pain, etc. Body mass index 25-29 - overweight 015580936 Z68.26 [id number] ADOLFO Gutierrez [address] [address] 10/09/2024 09:28:51 10/09/2024 10:54:34 Screening for osteoporosis 788716775 Z13.820 Essential hypertension 37074260 I10 HIV screening 314484271 Z11.4 Hepatitis C screening 41 4309876 Z11.59 Impacted cerumen 0730300 6 H61.21 Irrigated without issues [id number] ADOLFO Gutierrez [facility] [address] [place] [address] 11/06/2024 10:58:39 11/06/2024 12:08:07 Screening for malignant neoplasm of colon 566950316 Z12.[address] imulating hormone level below reference range 831010305 R94.6 Dysuria 97358093 R30.0 Leukocytes in urine 2757 64093 R82.79 Acute urin chiqui tract infection 593547987 N39.0 Hypothyroidism 85395189 E03.9 [id number] ADOLFO Gutierrez [address] [address] 12/25/2024 12:56:22 12/25/2024 13:45:23 Hypothyroidism 21174952 E03.9 Chronic ob structive pulmonary disease 90447559 J44.9 Depressive disorder 3548 9007 F32.A Chronic pain 09771484 G8 9.29 Essential hypertension 85626564 I10 Hyperlipidemia 85970792 E78.5 Vitamin D deficiency 347 20278 M81.0 Gastroesop hageal reflux disease without esophagitis 539172036 K21.9 532553 Senile osteoporosis 1804 0001 M81.0 2541801 Osteoporosis 65473482 M8 1.0 Tobacco de pendence syndrome 33314986 F17.200 24673 [id number] ADOLFO Gutierrez [address] [address] 02/26/2025 08:48:52 02/26/2025 09:22:23 Dysuria 42487963 R30.0 27563 Leukocytes in urine 2757 71855 R82.998 250009 Acute vaginitis 47303636 N76.0 24295 Urine culture pending but likely candidiasi sWill treat with Diflucan - call if symptoms not improving [id number] ADOLFO Gutierrez [facility] [address] [place] [address] 03/05/2025 10:31:30 03/05/2025 11:07:38 Spasm of urinary bladder 719362011 N32.89 217809 Abnormal urinalysis 1672 29643 R82.90 784472 Pruritus of vagina 31408 003 N89.8 525075 Bacterial urinary infection 214401920 N39.0 A49.9 9697205 Lichen scl erosus of vulva 025010858 N90.4 9852999876 [id number] ADOLFO Gutierrez [facility] [address] [place] [address] 05/20/2025 11:29:13 05/20/2025 12:05:20 Dysuria 62643071 R30.0 24705 Abnormal urinalysis 1672 85995 R82.90 816640 Hypothyroidism 84346566 E03.9 64278124 Serum crea tinine above reference range 871593328 R79.89 346645 Acute urin chiqui tract infection 194651096 N39.0 136524 Vaginal dryness 47082261 N89.8 [id number] Goals Section Goal Description Progress Status Start [...] Alida Stone Not Available 12/25/2024 17: 47:20 Advance Directives Directive N: Payers Insurance Date Sequence Insurance Name Policy Number Policy Howard Covered Member ID Howard Member ID Guarantor Name 05/18/2025 [place] Jocelyn Clark [id number] Jocelyn Clark 05/18/2025 1 AMY MOLINA (MEDICARE REPLACEMENT/A DVANTAGE - HMO) [id number] Jocelyn Clark [id number] Jocelyn Clark Notes Date Note Type Note Provider Name and Address Organization Details Recorded Time 11/06/2024 text/html ROS as noted in the HPI Patient presents for followup. Needs TSH to check Synthroid dose. C/O dysuria for a few days.She has seen several specialists recently. Some of her meds are costly and the specialist appointments are costly. SHe is supposed to have hip injections next week but has to pay almost $400 up front and isn't sure if she can. ADOLFO Gutierrez [address] [place], [address], [employer] 11/08/2024 15:21:08 12/25/2024 text/html ROS as noted in the HPI Patient presents for followup.History of hypothyroidism. Stable on Synthroid.History of COPD. She is doing well with Brextri.History of HTN. Has been seeing us as well as cardiology. Blood pressure today is still slightly elevated but is the best it has ever been. Denies headache, chest pain, vertigo, dyspnea. ADOLFO Gutierrez [address] [place], [place], [id number], [employer] 12/27/2024 13:20:07 02/26/2025 text/html ROS as noted in the HPI Patient complains of burning and itching after urination for the past few days. No fever. ADOLFO Gutierrez [address] [place], [address], [place] [employer] 02/28/2025 16:29:43 03/05/2025 text/html ROS as noted in the HPI Patient states that she is still having urinary frequency, dysuria, and now feels as if she is having bladder spasms. Urine culture last week was negative but she feels worse. Also states that she is still having vaginal itching. She took two Diflucan with no improvement. She states in the past she was diagnosed with lichen sclerosus and was prescribed a cream for that. ADOLFO Gutierrez [address] [place], [address], [employer] 03/05/2025 13:50:26 05/20/2025 text/html ROS as noted in the HPI Dysuria and frequency X 2 days. No fever. Has had 4 or 5 UTIs in the past year. ADOLFO Gutierrez [address] [place], [address], [employer] 05/20/2025 14:18:23 OBGyn Episode No OBEpisode recorded.
== END 2025-06-03 23:59 | disposition home or self-care (01) ==
LOC: LAB 14:54
PROVIDERS: PCP Physician Assistant; Visit Provider Student in an Organized Health Care Education/Training Program
DX: I12.9 Hypertensive chronic kidney disease with stage 1 through stage 4 chronic kidney disease, or unspecified chronic kidney disease (principal); N18.9 Chronic kidney disease, unspecified; R80.1 Persistent proteinuria, unspecified
CPT/HCPCS: 36415; 80069; 81001; 82043; 82570; 84156; 85027; 87086

== ENCOUNTER 2025-06-27 07:57 | Outpatient (CLI) | payer MEDICARE, SELFPAY ==
--- OUTSIDE RECORDS SUMMARY | 2025-06-07 13:00 | XMS_ITS | Encounter Summary ---
Author Organization [facility] Address [address] [place] [address] Care Team Providers Care Road Packer Operator Name Role Phone Ayse Roth SORTER PACKER Primary Care Provider [phone] Reason for Visit * Reason Comments Follow-up [...] than 300 mg/g Leobardo Aceves MD [address] [place] [address] Phone: tel: fax: Referral ID Status Reason Start Date Expiration Date Visits Re quested Visits Authorized [id number] Closed 12/21/2024 06/22/2026 1 1 Encounter Details Date Type Department Care Team (Late st Contact Info) Description 06/07/2025 1:00 PM EST Office Visit [facility] [address] [place] [phone] Leobardo Aceves MD [address] [place] [address] Hypertensive chronic kidney disease with stage 1 [...] kidney disease) stage 4, GFR 15-29 ml/min ([facility]) Social History Tobacco Use Types Packs/Day Years Used Date Smoking Tobacco: Every Day Cigarettes 1 61.9 Started: 1963 Passive Smoke Exposure: Never Smokeless [...] PM EST Nephrology Outpatient Clinic Progress Note [facility] Patient: Jocelyn Greene Amber Primary Care [...] kidney disease) stage 4, GFR 15-29 ml/min ([facility]) Tobacco use disorder Chronic kidney disease-mineral and bone disorder (CKD-MBD) Mixed hyperlipidemia Coronary artery disease involving [place] coronary artery of [place] heart without angina pectoris Persistent proteinuria Chronic kidney disease (CKD) stage G3b/A3, moderately decreased glomerular filtration rate (GFR) between 30-44 mL/min/1.73 square meter and albuminuria creatinine ratio greater than 300 mg/g Past Surgical History: Procedure Laterality Date HYSTERECTOMY N/A Hysterectomy from [employer] INCONTINENCE SURGERY N/A Laparoscopic Sling Operation For Stress Incontinence from [employer] TUBAL LIGATION N/A Tubal Ligation from [employer] Family History Problem Relation Name Age of [...] cream for UTI prevention -Going to see QUEBRACHO TANNER about recurrent UTIs RTC in 4 months Leobardo Aceves MD Division of Nephrology [facility] ORDERS PLACED THIS ENCOUNTER No orders of the defined types were placed in this encounter. Problem List Items Addressed This Visit None documented in this encounter Plan of Treatment Upcoming Encounters Date Type Department Care Team (Late st Contact Info) Description 09/25/2025 1:00 PM EDT Office Visit [facility] [address], [address] [place] [address] Jenelle Burt MD [address] [place] [address] 11/01/2025 12:00 PM EDT Office Visit [facility] [address] [facility] [address] [place] [address] Leobardo Aceves MD [address] [place] [address] Scheduled Orders Name Type Priority [...] kidney disease) stage 4, GFR 15-29 ml/min ([facility]) Chronic kidney disease, Stage IV (severe) documented in this encounter Additional Health Concerns Assessment Noted Time A fall risk assessment has been complete d for the patient 10/08/2024 8:52 AM EDT A Body Mass Index follow-up plan has been documented for the patient 06/07/2025 1:20 PM EST documented as of this encounter Care Teams Road Packer Operator Relationship Specialty Start Date End Date Ayse Roth APRN [address] [place] [address] PCP - General 04/05/24 documented as of this encounter
--- NOTE | 2025-06-27 08:00 | US_ITS ---
FINAL REPORT CLINICAL HISTORY: gallbladder polyp FINDINGS: GALLBLADDER ULTRASOUND Technique: Ultrasound images of the right upper quadrant were obtained specifically the gallbladder. Findings: Echogenic focus in the neck of the gallbladder demonstrate shadowing on some images and may represent a gallstone. Common duct measures 4 mm, within normal limits. Coarse interstitial opacity in the liver is probably related to fibrosis. There are multiple anechoic structures in the right kidney measuring up to 2.2 cm consistent with benign cysts. IMPRESSION: Gallstone. Benign right renal cysts. Reviewed, Interpreted and Dictated by Dilshad Byers MD Transcribed by Emy Grace Authenticated and [facility]
--- OUTSIDE RECORDS SUMMARY | 2025-06-27 08:03 | XMS_ITS | Encounter Summary ---
Author Organization [facility] Address [address] [place] [address] Care Team Providers Care Freezer Machine Operator Name Role Phone Shadi Montoya MD Primary Care Provider [phone] Ayse Roth APRN Primary Care Provider [phone] Encounter Details Date Type Department Care Team (Late st Contact Info) Description 01/28/2023 Orders Only External Location [address] [place] [address] Provider, External Social History Tobacco Use Types [...] Department Care Team (Late Contact Info) Description 09/25/2025 1:00 PM EDT Office Visit [facility] [address], [address] [place] [address] Jenelle Burt MD [address] [facility] [address] [place] [address] 11/01/2025 12:00 PM EDT Office Visit [facility] [address] [place] [address] Leobardo Aceves MD [address] [place] [phone] documented as of this encounter Procedures Procedure [...] on filedocumented in this encounter Care Teams Freezer Machine Operator Relationship Specialty Start Date End Date Shadi Montoya MD [address] [place] [address] PCP - General 11/28/20 04/04/24 Ayse Roth APRN [address] [place] [address] PCP - General 04/05/24 documented as of this encounter
--- OUTSIDE RECORDS SUMMARY | 2025-06-27 08:03 | XMS_ITS | Encounter Summary ---
Author Organization [facility] Address [address] [place] [address] Care Team Providers Care Engineering Coordinator Name Role Phone Ayse Roth SUPERVISOR URANIUM PROCESSING Primary Care Provider Encounter Details Date Type Department Care Team ([facility] st Contact Info) Description 06/25/2025 Telephone [facility] [address] [facility], [address] [place] [address] Aixa Ferro, PharmD [address] [place] [address] Social History Tobacco Use Types Packs/Day Years Used Date Smoking Tobacco: Every Day Cigarettes 1 61.9 Started: 1964 Passive Smoke Exposure: Never Smokeless [...] on file documented as of this encounter Miscellaneous Notes * Telephone Encounter - Aixa Ferro, PharmD - 06/25/2025 10:46 AM EST Attempted to reach Jocelyn Clark to follow-up regarding blood pressure without success. Voicemail has been left with daughter with direct number to PharmD. Will continue to attempt to reach. Aixa Ferro PharmD, BCACP Clinical Pharmacist [facility] [address] [place] [address] documented in this encounter Plan of Treatment Upcoming Encounters Date Type Department Care Team (Late st Contact Info) Description 09/25/2025 1:00 PM EDT Office Visit [facility] [address], [address] [place] [address] Jenelle Burt MD [address] [facility] [address] [place] [address] 11/01/2025 12:00 PM EDT Office Visit [facility] [address] [facility] [address], [place] [address] Leobardo Aceves MD [address] [place] [address] documented as of this encounter Visit Diagnoses Not on filedocumented in this encounter Additional Health Concerns Assessment Noted Time A fall risk assessment has been complete d for the patient 10/08/2024 8:52 AM EDT A Body Mass Index follow-up plan has been documented for the patient 06/07/2025 1:20 PM EST documented as of this encounter Care Teams Engineering Coordinator Relationship Specialty Start Date End Date Ayse Roth APRN [address] [place] [address] PCP - General 04/05/24 documented as of this encounter
--- OUTSIDE RECORDS SUMMARY | 2025-06-27 08:03 | XMS_ITS | Clinical Summary ---
Author Organization [facility] Address [address] [place] [address] Care Team Providers Care Coloring Machine Operator Name Role Phone Ayse Roth HAND ROLLER Primary Care Provider [phone] Allergies No known active allergies Medications albuterol [...] mouth 1 (one) time each day. Active metoprolol tartrate (Lopressor) 100 MG tablet [...] mg) by mouth in the evening. Active alendronate (Fosamax) 70 MG tablet Take 1 tablet every week by oral route for 90 days, for osteoporosis. Active Calcium Carb-Cholecalci ferol 600-10 MG-MCG tablet Take 1 tablet by mouth daily. Active levothyroxine (Synthroid, Levoxyl) 75 MCG tabletIndicatio ns:Hypothyroidi sm, unspecified type TAKE 1 TABLET BY MOUTH 30 TO 60 MINUTES BEFORE BREAKFAST DAILY 30 tablet 1 5 Active spironolactone (Aldactone) 25 MG tabletIndicatio ns:Hypertensive chronic kidney disease with stage 1 through stage 4 chronic kidney disease, or unspecified chronic kidney disease Take 1 tablet by mouth daily. 90 tablet 3 5 Active ergocalciferol (Vitamin D-2) 1.25 MG (95815 UT) capsule Take 1 capsule (50,000 Units) by mouth 1 (one) time per week. 06/07/20 25 Discontinu ed(Per Patient Report) Active Problems Problem Noted Date Diagnosed Date Persistent proteinuria 08/03/2024 Chronic kidney disease (CKD) [...] hyperlipidemia 04/05/2024 Coronary artery disease invo [place]ving [place] coronary artery of [place] heart without angina pectoris 04/05/2024 Resolved Problems Problem Noted Date Diagnosed Date Resolved Date Urinary tract infection with hematuria 08/03/2024 04/07/2025 Encounters Date Type Department Care Team Description 06/25/2025 Telephone [facility]eral Met[facility] [address], [address] [place] [address] Aixa Ferro, PharmD 06/07/2025 1:00 PM EST Office Visit [facility] [address] [place] [address] Leobardo Aceves MD Hypertensive chronic kidney disease with stage 1 [...] kidney disease) stage 4, GFR 15-29 ml/min ([facility]) 06/07/2025 Travel from Last 3 Months Immunizations Immunization Administration Dates Next Due Influenza, High-dose, Split Virus, Trivalent, Injectable, preservative free 03/05/2025 Influenza, high-dose, quadrivalent 08/31/2023 Influenza, injectable, quadrivalent, preservativ e free 04/14/2020 [facility] COVID-19 Vaccine (Purple Cap) 12 + 12/03/2020,10/29/2020 Pneumococcal 20-cherri Conj Vaccine 03/05/2025 Rsvpref, Recombinant, Protein Subunit, Adjuvent 03/05/2025 Tdap 03/05/2025 Zoster, Recombinant 03/05/2025 Family History Medical History Relation Name Comments [...] Pulse 54 06/07/2025 12:56 PM EST Temperature 36.6 C (97.8 F) 10/08/2024 8:52 AM EDT Respiratory Rate 18 06/07/2025 12:56 PM EST Oxygen Saturation 99% 06/07/2025 12:56 PM EST Inhaled Oxygen Concentration - - Weight 62.1 kg (137 lb) 06/07/2025 12:56 PM EST Height 162.6 cm (5' 4 ) 06/07/2025 12:56 PM EST Body Mass Index 23.52 06/07/2025 12:56 PM EST Plan of Treatment Upcoming Encounters Date Type Department Care Team (Late st Contact Info) Description 09/25/2025 1:00 PM EDT Office Visit [facility] [address], [address] [place] [address] Jenelle Burt MD [address] [facility] [address] [place] [address] 11/01/2025 12:00 PM EDT Office Visit [facility] [address] [place] [address] Leobardo Aceves MD [address] [place] [address] Health Maintenance Due Date Last Done Comments [facility]-Bone Density Scan 1955 [facility]-Hepatitis C Screening 1955 [facility]-Medicare Annual Wellness (AWV) 1955 [facility]-/Child/Adol SDOH Screenings 1955 [facility]- SDOH Screenings 1973 [facility]-Adult SDOH Screenings 1973 CT Colonography 2000 Colonoscopy 2000 FIT-DNA 2000 FIT 2000 FOBT 2000 Sigmoidoscopy 2000 [facility]-Colorectal Cancer Screening 2000 Lung Cancer Screening Shared Decision Making 2005 [facility]-Breast Cancer Screening 2005 [facility]-Lung Cancer Screening 2005 [id number] Vaccine ( season) 2025 08/31/2023, 06/03/2021, 12/03/2020, Additional history exists [facility]-Depression Screening 05/21/2025 05/21/2024 [facility]-DTaP,Tdap,and Td Vaccines (2 - Td or Tdap) 03/05/2035 03/05/2025 [facility]-Influenza Vaccine Completed 03/05/2025 , 08/31/2023, 04/14/2020 [facility]-Pneumococcal Vaccine: 50+ Years Completed 03/05/2025 [facility]-RSV Vaccine: 60+ Years or Completed 03/05/2025 [facility]-Zoster Vaccines Completed 05/20/2025, HPV Vaccines (No Doses Required) Completed [facility]-HIB Vaccines Aged Out No longer e [...] patient's age to complete this topic Insurance PENDING SALE TO [facility] MEDICARE Care Teams Coloring Machine Operator Relationship Specialty Start Date End Date Ayse Roth APRN [address] [place] [address] PCP - General 04/05/24
--- OUTSIDE RECORDS SUMMARY | 2025-06-27 08:04 | XMS_ITS | Encounter Summary ---
Author Organization Healthcare Address [address] [place] [address] Care Team Providers Care Whiskey Filterer Name Role Phone Ayse Roth APRN Primary Care Provider [phone] Encounter Details Date Type Department Care Team (Latest Contact Info) Description 06/07/2025 Travel Social History Tobacco Use Types Packs/Day [...] 09/25/2025 1:00 PM EDT Office Visit [facility] [address], [address] [place] [address] Jenelle Burt MD [address] [facility] [address] [place] [address] 11/01/2025 12:00 PM EDT Office Visit [facility] [address] [place] [address] Leobardo Aceves MD [address] [place] [address] documented as of this encounter Visit Diagnoses Not on filedocumented in this encounter Additional Health Concerns Assessment Noted Time A fall risk assessment has been complete d for the patient 10/08/2024 8:52 AM EDT A Body Mass Index follow-up plan has been documented for the patient 06/07/2025 1:20 PM EST documented as of this encounter Care Teams Whiskey Filterer Relationship Specialty Start Date End Date Ayse Roth APRN [address] [place] [address] PCP - General 04/05/24 documented as of this encounter
[2025-06-27 09:38] LABS: Albumin Level 4.5 g/dl (3.5-5.0); Chloride 106 mmol/L (98-107); Potassium 4.4 mmoL/L (3.5-5.1); Sodium 140 mmol/L (136-145)
[2025-06-27 09:41] LABS: Anion Gap 21.4 mEq/L (5-15); Blood Urea Nitrogen 30 mg/dl (7-17); Carbon Dioxide 17 mmol/L (22.0-30.0); Creatinine,Serum 2.80 mg/dl (0.52-1.04); Estimated Glomerular Filt Rate 17 ml/min (>60); GFR (African American) 20 ML/MIN (>60); Phosphorous 4.5 mg/dl (2.5-4.5)
[2025-06-27 09:42] LABS: Calcium 9.9 mg/dl (8.4-10.2); Glucose 92 mg/dl (74-100)
== END 2025-06-27 23:59 | disposition home or self-care (01) ==
PROVIDERS: Student in an Organized Health Care Education/Training Program; PCP Physician Assistant; Visit Provider Surgery
DX: K80.20 Calculus of gallbladder without cholecystitis without obstruction (principal); N28.1 Cyst of kidney, acquired; I12.9 Hypertensive chronic kidney disease with stage 1 through stage 4 chronic kidney disease, or unspecified chronic kidney disease; N18.9 Chronic kidney disease, unspecified
CPT/HCPCS: 36415; 76705; 80069

== ENCOUNTER 2025-07-04 14:42 | Outpatient (CLI) | payer MEDICARE, SELFPAY ==
--- OUTSIDE RECORDS SUMMARY | 2025-06-07 13:00 | XMS_ITS | Encounter Summary ---
Author Organization [facility] Address [address] [place] [address] Care Team Providers Care Composing Machine Operator/Tender Name Role Phone Ayse Roth LAMINATION OPERATOR Primary Care Provider [phone] Reason for Visit * Reason Comments Follow-up Patient is a 69 year old female that presents to the clinic on this date for a follow up. Patient states she is having pain in the lower back that she rates a 8/10. She states she is having a lot of UTI's over the past and is wondering if her kidney has something to do with this. Patient states she has had 3 UTI's in the past month. * Consultation (Routine) - Closed Specialty Diagnoses / Procedures Referred By Zulema muller Referred To Contact Diagnoses Persistent proteinuria Chronic kidney disease (CKD) stage G3b/A3, moderately decreased glomerular filtration rate (GFR) between 30-44 mL/min/1.73 square meter and albuminuria creatinine ratio greater than 300 mg/g Leobardo Aceves MD [address] [place] [address] Phone: tel: fax: Referral ID Status Reason Start Date Expiration Date Visits Re quested Visits Authorized [id number] Closed 12/21/2024 06/22/2026 1 1 Encounter Details Date Type Department Care Team (Late st Contact Info) Description 06/07/2025 1:00 PM EST Office Visit [facility] [address] [place] [id number] Leobardo Aceves MD [address] [place] [address] Hypertensive chronic kidney disease with stage 1 through stage 4 chronic kidney disease, or unspecified chronic kidney disease (Primary Dx); Mixed hyperlipidemia; Chronic kidney disease-mineral and bone disorder (CKD-MBD); Chronic kidney disease (CKD) stage G3b/A3, moderately decreased glomerular filtration rate (GFR) between 30-44 mL/min/1.73 square meter and albuminuria creatinine ratio greater than 300 mg/g; Persistent proteinuria; CKD (chronic kidney disease) stage 4, GFR 15-29 ml/min ([facility]) Social History Tobacco Use Types Packs/Day Years Used Date Smoking Tobacco: Every Day Cigarettes 1 62 Started: 1963 Passive Smoke Exposure: Never Smokeless [...] Sign Reading Time Taken Comments Blood Pressure 155/72 06/07/2025 12:56 PM EST Pulse 54 06/07/2025 12:56 PM EST Temperature - - Respiratory Rate 18 06/07/2025 12:56 PM EST Oxygen Saturation 99% 06/07/2025 12:56 PM EST Inhaled Oxygen Concentration - - Weight 62.1 kg (137 lb) 06/07/2025 12:56 PM EST Height 162.6 cm (5' 4 ) 06/07/2025 12:56 PM EST Body Mass Index 23.52 06/07/2025 12:56 PM EST documented in this encounter Miscellaneous Notes * Progress Notes - Leobardo Aceves MD - 06/07/2025 1:00 PM EST Nephrology Outpatient Clinic Progress Note [facility] Patient: Jocelyn Greene Amber Primary Care Provider: Ayse Roth APRN Referring Provider: Gonzalez, Ayse, LAMINATION OPERATOR Reason for consult: CKD stage 3b HPI/Subjective [...] of other specified conditions History of diarrhea Urinary tract infection with hematuria 08/03/24 Patient Active Problem List Diagnosis Hypertensive chronic kidney disease with stage 1 through stage 4 chronic kidney disease, or unspecified chronic kidney disease CKD (chronic kidney disease) stage 4, GFR 15-29 ml/min ([facility]) Tobacco use disorder Chronic kidney disease-mineral and bone disorder (CKD-MBD) Mixed hyperlipidemia Coronary artery disease involving [place] coronary artery of [place] heart without angina pectoris Persistent proteinuria Chronic kidney disease (CKD) stage G3b/A3, moderately decreased glomerular filtration rate (GFR) between 30-44 mL/min/1.73 square meter and albuminuria creatinine ratio greater than 300 mg/g Past Surgical History: Procedure Laterality Date HYSTERECTOMY N/A Hysterectomy from [facility] INCONTINENCE SURGERY N/A Laparoscopic Sling Operation For Stress Incontinence from [facility] TUBAL LIGATION N/A Tubal Ligation from [facility] Family History Problem Relation Name Age of [...] packs/day: 1.00 Average packs/day: 1 pack/day for 61.9 years (61.9 ttl pk-yrs) Types: Cigarettes Start date: 1963 [...] oral route for 90 days, for osteoporosis. atorvastatin (LIPITOR) 80 mg, Daily Calcium Carb-Cholecalciferol 600-10 MG-MCG tablet 1 tablet, Oral, Daily cholecalciferol (VITAMIN D-3) 2,000 Units, Daily ergocalciferol (VITAMIN D-2) 50,000 Units, Weekly levothyroxine (Synthroid, Levoxyl) 75 MCG tablet TAKE 1 TABLET BY MOUTH 30 TO 60 MINUTES BEFORE BREAKFAST DAILY metoprolol tartrate (LOPRESSOR) 100 mg, 2 times daily pantoprazole (PROTONIX) 20 mg, Daily before breakfast valsartan (DIOVAN) 320 mg, Daily verapamil (CALAN) 120 mg, Daily Objective Visit Vitals LMP (LMP Unknown) OB Status Postmenopausal Smoking Status Every Day BP: ()/() Arterial Line BP: ()/() Physical Exam: Physical Exam Constitutional: General: She [...] Results Component Value Date CA 10.0 03/17/2017 Endocrine profile: Lab Results Component Value Date TSH 0.09 (L) 10/08/2024 FREET4 2.1 (H) 10/08/2024 CBC: Lab Results Component Value Date WBC 10.3 03/17/2017 RBC 3.97 03/17/2017 HGB 12.5 03/17/2017 HCT 37.4 03/17/2017 PLT 296 03/17/2017 MCV 94 03/17/2017 MCH 31.5 03/17/2017 MCHC 33.4 03/17/2017 RDW 12.3 03/17/2017 Iron studies: No results found for: FERRITIN , IRON , IRONSAT , TIBC Labs 04/04/24 Na 137, K 4.4, Cl 105, CO2 26, BUN 29, Cr 1.9 , GFR 26, Glu 88, Ca 9.3, Phos 4.1, Alb 4.1, Vit d 72.4 CBC: WBC 8.5, HGB 13.5, PLT 314 UA: 2+ prtoein, neg glu, 1+ blood Labs 07/25/2024 RFP: Na 137, K 3.9, Cl 107, CO2 20, BUN 12, Cr 1.7, EGFR 30, Ca 9.2, Phos 3.6, Alb 4.0 PTH 114, Vitd 71 UA 2+ protein, 3-5 RBC UPCR: 244/97, UACR: 907mg/L /97 mg/dL Cr 132, C4 28 Urine culture 07/27/24: ding sensitive E. Coli 10/19/24 CBC: WBC 10.5, HGB 13.0, PLT 265 RFP: Na 139, K 3.7, Cl 108, CO2 21, BUN 16, Cr 1.8, GFR 28, Glu 100, Ca 10.0 06/03/25 WBC: 8.9, HGB 11.5, PLT 261 RFP: Na 134, K 3.6, Cl 103, CO2 22, BUN 24, Cr 2.1, GFR 23, Glu 76, Ca 9.1, Phos 3.3, Alb 4.0 Urine creat 77, microalb 2002, UACR 2600 Imaging: No recent renal imaging to review Impression & Plan: #CKD Stage 3b/4 - slightly worsened Etiology: Suspect multifactorial, long-standing untreated HTN, tobacco use disorder, microvascular disease Baseline cr: 1.7-1.9. most recent cr 2.1 eGFR 23 No major issues with acid/base, electrolytes or [...] -recommend low sodium diet #HTN in CKD -worsened, now above goal -Continue Valsartan 320 mg daily -Verapamil 120 mg daily -metoprolol 100 mg daily #Anemia in CKD -No anemia on recent [...] estrogen cream Recommendations and plan: -Kidney function reduced since last visit, unclear reason creatinine increased from 1.8 to 2.1 Electrolytes stable. -Starting Spironolactone 25 mg daily for blood pressure control and anti- proteinuric effect - [facility] (renal function panel) in 7-10 days -Continue to avoid NSAIDs -Continue to try to stop Smoking cigarettes -Continue vaginal estrogen cream for UTI prevention -Going to see [employer] about recurrent UTIs RTC in 4 months Leobardo Aceves MD Division of Nephrology [facility] ORDERS PLACED THIS ENCOUNTER No orders of the defined types were placed in this encounter. Problem List Items Addressed This Visit None documented in this encounter Plan of Treatment Upcoming Encounters Date Type Department Care Team (Late st Contact Info) Description 09/25/2025 1:00 PM EDT Office Visit [facility] [address], [address] [place] [address] Jenelle Burt MD [address] [place] [address] 11/01/2025 12:00 PM EDT Office Visit [facility] [address] [facility] [address] [place] [address] Leobardo Aceves MD [address] [place] [address] Scheduled Orders Name Type Priority Associated Diagnoses Orde r Schedule Renal function panel Lab Routine Hypertensive chronic kidney disease with stage 1 through stage 4 chronic kidney disease, or unspecified chronic kidney disease Expected: 06/14/2025 (Approximate), Expires: 12/09/2026 Albumin-creatinine ratio, urine, random Lab Routine Hypertensive chronic kidney disease with stage 1 through stage 4 chronic kidney disease, or unspecified chronic kidney disease Expected: 10/05/2025 (Approximate), Expires: 12/09/2026 Renal Function Panel, Plasma Lab Routine Hypertensive chronic kidney disease with stage 1 through stage 4 chronic kidney disease, or unspecified chronic kidney disease Expected: 10/05/2025 (Approximate), Expires: 12/09/2026 CBC W/O Differential Lab Routine Hypertensive chronic kidney disease with stage 1 through stage 4 chronic kidney disease, or unspecified chronic kidney disease Expected: 10/05/2025 (Approximate), Expires: 12/09/2026 Protein, Random, Urine with Creatinine Lab Routine Hypertensive chronic kidney disease with stage 1 through stage 4 chronic kidney disease, or unspecified chronic kidney disease Expected: 10/05/2025 (Approximate), Expires: 12/09/2026 Urinalysis with reflex microscopic (Culture NOT Included) Lab Routine Hypertensive chronic kidney disease with stage 1 through stage 4 chronic kidney disease, or unspecified chronic kidney disease Expected: 10/05/2025 (Approximate), Expires: 12/09/2026 documented as of this encounter Visit Diagnoses Diagnosis Hypertensive chronic kidney disease with stage 1 through stage 4 chronic kidney disease, or unspecified chronic kidney disease- Primary Mixed hyperlipidemia Chronic kidney disease-mineral and bone disorder (CKD-MBD) Chronic kidney disease (CKD) stage G3b/A3, moderately decreased glomerular filtration rate (GFR) between 30-44 mL/min/1.73 square meter and albuminuria creatinine ratio greater than 300 mg/g Persistent proteinuria CKD (chronic kidney disease) stage 4, GFR 15-29 ml/min ([facility]) Chronic kidney disease, Stage IV (severe) documented in this encounter Additional Health Concerns Assessment Noted Time A fall risk assessment has been complete d for the patient 10/08/2024 8:52 AM EDT A Body Mass Index follow-up plan has been documented for the patient 06/07/2025 1:20 PM EST documented as of this encounter Care Teams Composing Machine Operator/Tender Relationship Specialty Start Date End Date Ayse Roth APRN [address] [place] [address] PCP - General 04/05/24 documented as of this encounter
--- OUTSIDE RECORDS SUMMARY | 2025-07-04 14:45 | XMS_ITS | Encounter Summary ---
Author Organization Healthcare Address [address] [place] [address] Care Team Providers Care Park Attendant Name Role Phone Shadi Montoya MD Primary Care Provider [phone] Ayse Roth APRN Primary Care Provider [phone] Encounter Details Date Type Department Care Team (Late st Contact Info) Description 01/28/2023 Orders Only External Location [address] [place] [address] Provider, External Social History Tobacco Use Types [...] Care Clinic [address], [address] [place] [address] Jenelle Burt MD [address] [facility] [address] [place] [address] 11/01/2025 12:00 PM EDT Office Visit [facility] [address] [place] [address] Leobardo Aceves MD [address] [place] [address] documented as of this encounter Procedures Procedure [...] on filedocumented in this encounter Care Teams Park Attendant Relationship Specialty Start Date End Date Shadi Montoya MD [address] [place] [address] PCP - General 11/28/20 04/04/24 Ayse Roth APRN [address] [place] [address] PCP - General 04/05/24 documented as of this encounter
--- OUTSIDE RECORDS SUMMARY | 2025-07-04 14:45 | XMS_ITS | Clinical Summary ---
Author Organization [facility] Address [address] [place] [address] Care Team Providers Care Palliative Care Specialist Name Role Phone Ayse Roth MACHINE PAINT MIXER Primary Care Provider [phone] Allergies No known active allergies Medications albuterol [...] 5 Active ergocalciferol (Vitamin D-2) 1.25 MG (13594 UT) capsule Take 1 capsule (50,000 Units) [...] hyperlipidemia 04/05/2024 Coronary artery disease invo lving [place] coronary artery of [place] heart without angina pectoris 04/05/2024 Resolved Problems Problem Noted Date Diagnosed Date Resolved Date Urinary tract infection with hematuria 08/03/2024 04/07/2025 Encounters Date Type Department Care Team Description 06/25/2025 Telephone [facility] [address] [facility], [address] [place] [address] Aixa Ferro, PharmD 06/07/2025 1:00 PM EST Office Visit [facility] [address] [place] [address] Leobardo Aceves MD Hypertensive [...] GFR 15-29 ml/min ([facility]) 06/07/2025 Travel from Last 3 Months Immunizations Immunization Administration Dates Next Due Influenza, High-dose, Split Virus, Trivalent, Injectable, preservative free 03/05/2025 Influenza, high-dose, quadrivalent 08/31/2023 Influenza, injectable, quadrivalent, preservativ e free 04/14/2020 [employer] COVID-19 Vaccine (Purple Cap) 12 + 12/03/2020,10/29/2020 [...] 09/25/2025 1:00 PM EDT Office Visit [facility] [address], [address] [place] [address] Jenelle Burt MD [address] [place] [address] 11/01/2025 12:00 PM EDT Office Visit [facility] [address] [place] [address] Leobardo Aceves MD [address] [place] [address] Health Maintenance Due Date Last Done Comments [facility]-Bone Density Scan 1955 [facility]-Hepatitis C Screening 1955 [facility]-Medicare Annual Wellness (AWV) 1955 [facility]-/Child/Adol SDOH Screenings 1955 [facility]- SDOH Screenings 1973 [facility]-Adult SDOH Screenings 1973 CT Colonography 2000 Colonoscopy 2000 FIT-DNA 2000 FIT 2000 FOBT 2000 Sigmoidoscopy 2000 [facility]-Colorectal Cancer Screening 2000 Lung Cancer Screening Shared Decision Making 2005 [facility]-Breast Cancer Screening 2005 [facility]-Lung Cancer Screening 2005 [id number] Vaccine ( season) 2025 08/31/2023, 06/03/2021, 12/03/2020, [...] patient's age to complete this topic Insurance [place] [id number] [employer] MEDICARE Care Teams Palliative Care Specialist Relationship Specialty Start Date End Date Ayse Roth APRN [address] [place] [address] PCP - General 04/05/24
--- OUTSIDE RECORDS SUMMARY | 2025-07-04 14:45 | XMS_ITS | Encounter Summary ---
Author Organization [facility] Address [address] [place] [address] Care Team Providers Care Windlace Machine Operator Name Role Phone Ayse Roth APRN Primary Care Provider [phone] Encounter Details Date Type Department Care Team ([facility] st Contact Info) Description 06/25/2025 Telephone [facility] Met[facility] [address], [address] [place] [address] Aixa Ferro, PharmD [address] [place] [address] Social History Tobacco Use Types [...] Neph[facility], [facility] Clinic [address] [place] [address] documented in this encounter Plan of Treatment Upcoming Encounters Date Type Department Care Team (Late st Contact Info) Description 09/25/2025 1:00 PM EDT Office Visit [facility] [address], [address] [place] [address] Jenelle Burt MD [address] [place] [address] 11/01/2025 12:00 PM EDT Office Visit [facility] [address] [place] [address] Leobardo Aceves MD [address] [place] [address] documented as of this encounter Visit Diagnoses Not on filedocumented in this encounter Additional Health Concerns Assessment Noted Time A fall risk assessment has been complete d for the patient 10/08/2024 8:52 AM EDT A Body Mass Index follow-up plan has been documented for the patient 06/07/2025 1:20 PM EST documented as of this encounter Care Teams Windlace Machine Operator Relationship Specialty Start Date End Date Ayse Roth APRN [address] [place] [address] PCP - General 04/05/24 documented as of this encounter
--- OUTSIDE RECORDS SUMMARY | 2025-07-04 14:45 | XMS_ITS | Encounter Summary ---
Author Organization [facility] Address [address] [place] [address] Care Team Providers Care Customer Acquisition Manager Name Role Phone Ayse Roth APRN Primary Care Provider Encounter Details Date Type [...] 09/25/2025 1:00 PM EDT Office Visit [facility] [address], [address] [place] [address] Jenelle Burt MD [address] [facility] [address] [place] [address] 11/01/2025 12:00 PM EDT Office Visit [facility] [address] [place] [address] Leobardo Aceves MD [address] [place] [address] documented as of this encounter Visit Diagnoses Not on filedocumented in this encounter Additional Health Concerns Assessment Noted Time A fall risk assessment has been complete d for the patient 10/08/2024 8:52 AM EDT A Body Mass Index follow-up plan has been documented for the patient 06/07/2025 1:20 PM EST documented as of this encounter Care Teams Customer Acquisition Manager Relationship Specialty Start Date End Date Ayse Roth APRN [address] [place] [address] PCP - General 04/05/24 documented as of this encounter
[2025-07-04 15:56] LABS: Albumin Level 4.8 g/dl (3.5-5.0); Anion Gap 16.2 mEq/L (5-15); Blood Urea Nitrogen 33 mg/dl (7-17); Calcium 9.7 mg/dl (8.4-10.2); Carbon Dioxide 15 mmol/L (22.0-30.0); Chloride 109 mmol/L (98-107); Creatinine,Serum 2.50 mg/dl (0.52-1.04); Estimated Glomerular Filt Rate 19 ml/min (>60); GFR (African American) 23 ML/MIN (>60); Glucose 107 mg/dl (74-100); Phosphorous 3.5 mg/dl (2.5-4.5); Sodium 134 mmol/L (136-145)
[2025-07-04 16:17] LABS: Potassium 6.2 mmoL/L (3.5-5.1)
== END 2025-07-04 23:59 | disposition home or self-care (01) ==
LOC: LAB 14:43
PROVIDERS: PCP Physician Assistant; Visit Provider Student in an Organized Health Care Education/Training Program
DX: I12.9 Hypertensive chronic kidney disease with stage 1 through stage 4 chronic kidney disease, or unspecified chronic kidney disease (principal)
CPT/HCPCS: 36415; 80069

== ENCOUNTER 2025-07-12 14:09 | Outpatient (CLI) | payer MEDICARE, SELFPAY ==
--- OUTSIDE RECORDS SUMMARY | 2025-06-07 13:00 | XMS_ITS | Encounter Summary ---
Author Organization [facility] Address [address] [place] [address] Care Team Providers Care Engineering Professor Name Role Phone Ayse Roth APRN Primary Care Provider [phone] Reason for Visit * Reason Comments Follow-up [...] than 300 mg/g Leobardo Aceves MD [address] [place] [address] Phone: tel: fax: Referral ID Status Reason Start Date Expiration Date Visits Re quested Visits Authorized [id number] Closed 12/21/2024 06/22/2026 1 1 Encounter Details Date Type Department Care Team (Late st Contact Info) Description 06/07/2025 1:00 PM EST Office Visit [facility] [address] [place] [phone] Leobardo Aceves MD [address] [place] [address] Hypertensive chronic kidney disease with stage 1 [...] kidney disease) stage 4, GFR 15-29 ml/min ([facility]) Social History Tobacco Use Types Packs/Day Years [...] 12:56 PM EST documented in this encounter Functional Status * BP Answer Date of Assessment Author 155/72 06/07/2025 12:56 PM EST Fanta Tay * Pulse Answer Date of Assessment Author 54 06/07/2025 12:56 PM EST Fanta Tay * Resp Answer Date of Assessment Author 18 06/07/2025 12:56 PM EST Fanta Tay * SpO2 Answer Date of Assessment Author 99 06/07/2025 12:56 PM EST Tay, Fanta * Height Answer Date of Assessment Author 64 06/07/2025 12:56 PM EST Tay, Fanta * Weight Answer Date of Assessment Author 2192 06/07/2025 12:56 PM EST Tay, Fanta * BMI (Calculated) Answer Date of Assessment Author 23.6 06/07/2025 12:56 PM EST Tay, Fanta * Percent Excess Weight Loss Answer Date of Assessment Author 0 06/07/2025 12:56 PM EST Tay, Fanta * Total Weight Change Percent Answer Date of Assessment Author 2222 06/07/2025 12:56 PM EST Tay, Fanta * Weight Change Since Preop Answer Date of Assessment Author 62.13 06/07/2025 12:56 PM EST Tay, Fanta * Initial Excess Weight Answer Date of Assessment Author -54.43 06/07/2025 12:56 PM EST Tay, Fanta * IBW in lbs (Bariatric) Answer Date of Assessment Author 120 06/07/2025 12:56 PM EST Tay, Fanta * Weight Change Since Last Visit Answer Date of Assessment Author 62.13 06/07/2025 12:56 PM EST Tay, Fanta * IBW in kg (Bariatric) Answer Date of Assessment Author 54.43 06/07/2025 12:56 PM EST Tay, Fanta * Percent of IBW Answer Date of Assessment Author 4,027.19 06/07/2025 12:56 PM EST Tay, Fanta * EBW (kg) Answer Date of Assessment Author 2,190.46 06/07/2025 12:56 PM EST Tay, Fanta * EBW (lbs) Answer Date of Assessment Author 2,184.5 06/07/2025 12:56 PM EST Tay, Fanta * Weight Change 24 hrs Answer Date of Assessment Author -5.443 06/07/2025 12:56 PM EST Tay, Fanta * BSA (Calculated - sq m) Answer Date of Assessment Author 1.68 06/07/2025 12:56 PM EST Tay, Fanta * BMI (Calculated) Answer Date of Assessment Author 23.5 06/07/2025 12:56 PM EST Tay, Fanta * BP Location Answer Date of Assessment Author Left arm 06/07/2025 12:56 PM EST Tay, Fanat * IBW/kg (Calculated) Male Answer Date of Assessment Author 59.2 06/07/2025 12:56 PM EST Tay, Fanta * IBW/kg (Calculated) Female Answer Date of Assessment Author 54.7 06/07/2025 12:56 PM EST Tay, Fanta * Restart Vitals Timer Answer Date of Assessment Author Yes 06/07/2025 12:56 PM EST Tay, Fanta * IBW/kg (Calculated) Answer Date of Assessment Author 54.7 06/07/2025 12:56 PM EST Tay, Fanta * Weight in (lb) to have BMI = 25 Answer Date of Assessment Author 145.3 06/07/2025 12:56 PM EST Tay, Fanta * BMI (Calculated) Answer Date of Assessment Author 23.6 06/07/2025 12:56 PM EST Tay, Fanta * Percent Excess Weight Loss Answer Date of Assessment Author 0 06/07/2025 12:56 PM EST Tay, Fanta * Weight Change Since Preop Answer Date of Assessment Author 62.14 06/07/2025 12:56 PM EST Tay, Fanta * Initial Excess Weight Answer Date of Assessment Author -54.43 06/07/2025 12:56 PM EST Tay, Fanta * IBW in kg (Bariatric) Answer Date of Assessment Author 54.43 06/07/2025 12:56 PM EST Tay, Fanta * IBW in lb (Bariatric) Answer Date of Assessment Author 120 06/07/2025 12:56 PM EST Tay, Fanta * Weight Change Since Last Visit Answer Date of Assessment Author 62.14 06/07/2025 12:56 PM EST Tay, Fanta * Percent of IBW Answer Date of Assessment Author 114.17 06/07/2025 12:56 PM EST Tay, Fanta * EBW (kg) Answer Date of Assessment Author 7.7 06/07/2025 12:56 PM EST Tay, Fanta * EBW (lb) Answer Date of Assessment Author 17 06/07/2025 12:56 PM EST Tay, Fanta * Difference in Weight Since Last Visit Answer Date of Assessment Author -5.44 06/07/2025 12:56 PM EST Jasvir, Fanta * IBW/kg (Calculated) Answer Date of Assessment Author 54.7 06/07/2025 12:56 PM EST Tay, Fanta * Adult Low Range Vt 6mL/kg Answer Date of Assessment Author 328.2 06/07/2025 12:56 PM EST Tay, Fanta * Adult Moderate Range Vt 8mL/kg Answer Date of Assessment Author 437.6 06/07/2025 12:56 PM EST Tay, Fanta * Adult High Range Vt 10mL/kg Answer Date of Assessment Author 547 06/07/2025 12:56 PM EST Jasvir Fanta * Pain Score Answer Date of Assessment Author 8 06/07/2025 12:56 PM EST Jasvir Fanta * Patient Position Answer Date of Assessment Author Sitting 06/07/2025 12:56 PM EST Jasvir Fanta * Pain Screening/Additional Assessments Question Answer Date of Assessment Author Pain Screening/Assessments Pain Screening 06/07/2025 1 2:28 PM EST Jasvir Fanta * Pain Screening Answer Date of Assessment Author 0-10 06/07/2025 12:54 PM EST Jasvir Fanta * BP Answer Date of Assessment Author 155/72 06/07/2025 12:56 PM EST Jasvir Fanta * Pulse Answer Date of Assessment Author 54 06/07/2025 12:56 PM EST Jasvir Fanta * Resp Answer Date of Assessment Author 18 06/07/2025 12:56 PM EST Jasvir Fanta * SpO2 Answer Date of Assessment Author 99 06/07/2025 12:56 PM EST Jasvir, Fanta * Height Answer Date of Assessment Author 64 06/07/2025 12:56 PM EST Jasvir Fanta * Weight Answer Date of Assessment Author 2192 06/07/2025 12:56 PM EST Jasvir, Fanta * BSA (Calculated - sq m) Answer Date of Assessment Author 1.68 06/07/2025 12:56 PM EST Jasvir, Fanta * BMI (Calculated) Answer Date of Assessment Author 23.5 06/07/2025 12:56 PM EST Jasvir Fanta * BP Location Answer Date of Assessment Author Left arm 06/07/2025 12:56 PM EST Jasvir Fanta * Restart Vitals Timer Answer Date of Assessment Author Yes 06/07/2025 12:56 PM EST Jasvir Fanta * Weight in (lb) to have BMI = 25 Answer Date of Assessment Author 145.3 06/07/2025 12:56 PM EST Jasvir Fanta * Pain Score Answer Date of Assessment Author 8 06/07/2025 12:56 PM EST Jasvir Fanta * Patient Position Answer Date of Assessment Author Sitting 06/07/2025 12:56 PM EST Jasvir Fanta documented as of this encounter Mental Status * BP Answer Entry Date Author 155/72 06/07/2025 12:56 PM EST Jasvir Fanta * Pulse Answer Entry Date Author 54 06/07/2025 12:56 PM EST Jasvir Fanta * Resp Answer Entry Date Author 18 06/07/2025 12:56 PM EST Jasvir Fanta * SpO2 Answer Entry Date Author 99 06/07/2025 12:56 PM EST Jasvir Fanta * Height Answer Entry Date Author 64 06/07/2025 12:56 PM EST Jasvir Fanta * Weight Answer Entry Date Author 219106/07/2025 12:56 PM EST Jasvir Fanta * BMI (Calculated) Answer Entry Date Author 23.6 06/07/2025 12:56 PM EST Jasvir Fanta * Percent Excess Weight Loss Answer Entry Date Author 0 06/07/2025 12:56 PM EST Jasvir Fanta * Total Weight Change Percent Answer Entry Date Author 222106/07/2025 12:56 PM EST Jasvir Fanta * Weight Change Since Preop Answer Entry Date Author 62.13 06/07/2025 12:56 PM EST Jasvir Fanta * Initial Excess Weight Answer Entry Date Author -54.43 06/07/2025 12:56 PM EST Tay, Fanta * IBW in lbs (Bariatric) Answer Entry Date Author 120 06/07/2025 12:56 PM EST Jasvir Fanta * Weight Change Since Last Visit Answer Entry Date Author 62.13 06/07/2025 12:56 PM EST Tay, Fanta * IBW in kg (Bariatric) Answer Entry Date Author 54.43 06/07/2025 12:56 PM EST Tay, Fanta * Percent of IBW Answer Entry Date Author 4,027.19 06/07/2025 12:56 PM EST Tay, Fanta * EBW (kg) Answer Entry Date Author 2,190.46 06/07/2025 12:56 PM EST Tay, Fanta * EBW (lbs) Answer Entry Date Author 2,184.5 06/07/2025 12:56 PM EST Tay, Fanta * Weight Change 24 hrs Answer Entry Date Author -5.443 06/07/2025 12:56 PM EST Tay, Fanta * BSA (Calculated - sq m) Answer Entry Date Author 1.68 06/07/2025 12:56 PM EST Tay, Fanta * BMI (Calculated) Answer Entry Date Author 23.5 06/07/2025 12:56 PM EST Tay, Fanta * BP Location Answer Entry Date Author Left arm 06/07/2025 12:56 PM EST Tay, Fanta * IBW/kg (Calculated) Male Answer Entry Date Author 59.2 06/07/2025 12:56 PM EST Tay, Fanta * IBW/kg (Calculated) Female Answer Entry Date Author 54.7 06/07/2025 12:56 PM EST Tay, Fanta * Restart Vitals Timer Answer Entry Date Author Yes 06/07/2025 12:56 PM EST Tay, Fanta * IBW/kg (Calculated) Answer Entry Date Author 54.7 06/07/2025 12:56 PM EST Tay, Fanta * Restart Pain Assessment Timer Answer Entry Date Author Yes 06/07/2025 12:56 PM EST Tay, Fanta * Weight in (lb) to have BMI = 25 Answer Entry Date Author 145.3 06/07/2025 12:56 PM EST Tay, Fanta * BMI (Calculated) Answer Entry Date Author 23.6 06/07/2025 12:56 PM EST Tay, Fanta * Percent Excess Weight Loss Answer Entry Date Author 0 06/07/2025 12:56 PM EST Tay, Fanta * Weight Change Since Preop Answer Entry Date Author 62.14 06/07/2025 12:56 PM EST Tay, Fanta * Initial Excess Weight Answer Entry Date Author -54.43 06/07/2025 12:56 PM EST Tay, Fanta * IBW in kg (Bariatric) Answer Entry Date Author 54.43 06/07/2025 12:56 PM EST Tay, Fanta * IBW in lb (Bariatric) Answer Entry Date Author 120 06/07/2025 12:56 PM EST Tay, Fanta * Weight Change Since Last Visit Answer Entry Date Author 62.14 06/07/2025 12:56 PM EST Tay, Fanta * Percent of IBW Answer Entry Date Author 114.17 06/07/2025 12:56 PM EST Tay, Fanta * EBW (kg) Answer Entry Date Author 7.7 06/07/2025 12:56 PM EST Tay, Fanta * EBW (lb) Answer Entry Date Author 17 06/07/2025 12:56 PM EST Tay, Fanta * Difference in Weight Since Last Visit Answer Entry Date Author -5.44 06/07/2025 12:56 PM EST Tay, Fanta * IBW/kg (Calculated) Answer Entry Date Author 54.7 06/07/2025 12:56 PM EST Tay, Fanta * Adult Low Range Vt 6mL/kg Answer Entry Date Author 328.2 06/07/2025 12:56 PM EST Tay, Fanta * Adult Moderate Range Vt 8mL/kg Answer Entry Date Author 437.6 06/07/2025 12:56 PM EST Aty, Fanta * Adult High Range Vt 10mL/kg Answer Entry Date Author 547 06/07/2025 12:56 PM EST Tay, Fanta * Pain Score Answer Entry Date Author 8 06/07/2025 12:56 PM EST Tay, Fanta * BP Cuff Size Answer Entry Date Author Large adult 06/07/2025 12:56 PM EST Tay, Fanta * Patient Position Answer Entry Date Author Sitting 06/07/2025 12:56 PM EST Jasvir Fanat * Pain Screening Answer Entry Date Author 0-10 06/07/2025 12:54 PM EST Tay, Fanta documented in this encounter Miscellaneous Notes * Progress Notes - Leobardo Aceves MD - 06/07/2025 1:00 PM EST Nephrology Outpatient Clinic Progress Note [facility] Patient: Jocelyn Clark Primary Care Provider: Ayse [...] kidney disease) stage 4, GFR 15-29 ml/min ([facility]) Tobacco use disorder Chronic kidney disease-mineral and bone disorder (CKD-MBD) Mixed hyperlipidemia Coronary artery disease involving [place] coronary artery of [place] heart without angina pectoris Persistent proteinuria Chronic kidney disease (CKD) stage G3b/A3, moderately decreased glomerular filtration rate (GFR) between 30-44 mL/min/1.73 square meter and albuminuria creatinine ratio greater than 300 mg/g Past Surgical History: Procedure Laterality Date HYSTERECTOMY N/A Hysterectomy from [employer] INCONTINENCE SURGERY N/A Laparoscopic Sling Operation For Stress Incontinence from [employer] TUBAL LIGATION N/A Tubal Ligation from [employer] Family History Problem Relation Name Age of [...] 3.3, Alb 4.0 Urine creat 77, microalb 2001, UACR 2600 Imaging: No recent renal imaging [...] cream for UTI prevention -Going to see FISH PACKER about recurrent UTIs RTC in 4 months Leobardo Aceves MD Division of Nephrology [facility] ORDERS PLACED THIS ENCOUNTER No orders of the defined types were placed in this encounter. Problem List Items Addressed This Visit None documented in this encounter Plan of Treatment Upcoming Encounters Date Type Department Care Team (Late st Contact Info) Description 09/25/2025 1:00 PM EDT Office Visit [facility] [address], [address] [place] [address] Jenelle Burt MD [address] [facility] [address] [place] [address] 11/01/2025 12:00 PM EDT Office Visit [facility] [address] [facility] [address] [place] [address] Leobardo Aceves MD [address] [place] [address] Scheduled Orders Name Type Priority [...] kidney disease) stage 4, GFR 15-29 ml/min ([facility]) Chronic kidney disease, Stage IV (severe) documented in this encounter Additional Health Concerns Assessment Noted Time A fall risk assessment has been complete d for the patient 10/08/2024 8:52 AM EDT A Body Mass Index follow-up plan has been documented for the patient 06/07/2025 1:20 PM EST documented as of this encounter Care Teams Engineering Professor Relationship Specialty Start Date End Date Ayse Roth APRN [address] [place] [address] PCP - General 04/05/24 documented as of this encounter
--- OUTSIDE RECORDS SUMMARY | 2025-07-12 14:12 | XMS_ITS | Continuity of Care Document ---
Author Organization [facility] TAPQUAD., [facility] Address [address] [place] [address] Care Team Providers Care Geology Professor Name Role Phone [facility] Pain Manag ement [phone] [facility] Drier Operator Head JANETTE ALVAREZ Community Health Worker ALIDA BURTON Primary Care Provider RAYNA Hurley Holistic Health Practitioner Assessment No assessment recorded. Plan of Treatment Reminders Order Date Submit Date Provider Last Modified By Organization Details Last Modified Time Details Appointments None recorded. Lab urinalysis, dipstick 2024 025 [email or web address] [facility], [address] [facility], [place], [address], 12:05:37 culture, urine 2024 025 [facility] [address] [place] [address], [address], 5 18:07:55 TSH, ultra-sensi tive, serum 2024 025 [facility] [address] [place] [address], [address], 5 18:07:54 BMP, serum or plasma 2024 025 [facility], [address] [place] [address] [place], [address], 18:07:53 Referral None recorded. Procedures None recorded. Surgeries None recorded. Imaging None recorded. Medication Orders levofloxaci n 500 mg tablet 2024 [id number], [address] [place], [id number], 05:02:23 conjugated estrogens 0.625 mg/gram vaginal cream 2024 [email or web address][id number], [address] [place], [id number], 12:10:14 Patient TargetsNo targets recorded. Patient Instructions Encounter Date Encounter Id Patient Instructions Last Modified By Organization Details Last Modified Time 05/20/2025 [id number] painful urinatio n (dysuria): care instructions [email or web address] Not available 05/20/2025 12:05:36 hypothyroidism: care instructions Not available 05/20/2025 12:06:37 Reason for Referral None Reported. Results Created Date Observation Date Name Description Value Unit Range Abnormal Flag Note LastModifiedBy Organization Detail LastModifiedTime 05/20/2005/21/2025 BASIC METAB OLIC PANEL (8) glucose 77 mg/dL 70-99 normal Not Available [facility] ([facility]) [address] [place], [address], 05/23/2025 18:07:53 05/20/2005/21/2025 BASIC METAB OLIC PANEL (8) BUN 25 mg/dL 8-27 normal Not Available [facility] ([facility]) [address] [place], [address], 05/23/2025 18:07:53 05/20/2005/21/2025 BASIC METAB OLIC PANEL (8) creatinine 2.28 mg/dL 0.57-1 .00 above high normal Not Available [facility] ([facility]) [address] [place], [address], 05/23/2025 18:07:53 05/20/20 25 05/21/2025 BASIC METAB OLIC PANEL (8) eGFR 23 mL/mi n/1.7 3 >59 below low normal Not Available [facility] ([facility]) [address] [facility], [place], [address], 05/23/2025 18:07:53 05/20/20 25 05/21/2025 BASIC METAB OLIC PANEL (8) BUN/creatini ne ratio 11 12-28 below low normal Not Available [facility] ([facility]) [address] [facility] [place], [address], 05/23/2025 18:07:53 05/20/20 25 05/21/2025 BASIC METAB OLIC PANEL (8) sodium 136 mmol/ L 134-14 4 normal Not Available [facility] ([facility]) [address] [facility], [place], [address], 05/23/2025 18:07:53 05/20/20 25 05/21/2025 BASIC METAB OLIC PANEL (8) potassium 4.0 mmol/ L 3.5-5. 2 normal Not Available [facility] ([facility]) [address] [facility], [place], [address], 05/23/2025 18:07:53 05/20/20 25 05/21/2025 BASIC METAB OLIC PANEL (8) chloride 103 mmol/ L 96-106 normal Not Available [facility] ([facility]) [address] [facility] [place], [address], 05/23/2025 18:07:53 05/20/20 25 05/21/2025 BASIC METAB OLIC PANEL (8) carbon dioxide, total 18 mmol/ L 20-29 below low normal Not Available [facility] ([facility]) [address] [facility] [place], [address], 05/23/2025 18:07:53 05/20/20 25 05/21/2025 BASIC METAB OLIC PANEL (8) calcium 9.7 mg/dL 8.7-10 .3 normal Not Available [facility] ([facility]) [address] [place], [address], 05/23/2025 18:07:53 05/20/20 25 05/21/2025 TSH TSH 8.750 uIU/m L 0.450- 4.500 above high normal Not Available [facility] ([facility]) [address] [place], [address], 05/23/2025 18:07:54 05/20/2005/23/2025 URINE CULTU RE, LIZ NE urine culture, routine Final report abnormal Not Available [facility] ([facility]) [address] [place], [address], 05/23/2025 18:07:54 05/20/2005/23/2025 URINE CULTU RE, LIZ [...] ng units per mL Not Available [facility] ([facility]) [address] [place], [address], 05/23/2025 18:07:54 05/20/2005/23/2025 URINE CULTU RELIZ NE [...] Ampic illin S Cefaz josemanuel S Cefep davdi S Cefox itin S Cefpo doxim e S Ceftr iaxon e S Cipro floxa angelito S Ertap enem S Genta micin S Levof loxac in S Merop enem S Nitro furan toin S Piper acill in/Ta zobac malone S Tetra cycli ne S Tobra mycin S Trime thopr im/Liu lfa S Not Available [facility] ([facility]) [address] [facility], [place], [address], 05/23/2025 18:07:54 05/20/2005/20/2025 urina lysis , dipst ick Leukocytes Small Not Available [address], [address], 05/20/2025 11:42:29 05/20/20 25 05/20/2025 urina lysis , dipst ick Nitrite negati ve Not Available [address], [address], 05/20/2025 11:42:29 05/20/20 25 05/20/2025 urina lysis , dipst ick Urobilinogen .2 Not Available [address], [address], 05/20/2025 11:42:29 05/20/20 25 05/20/2025 urina lysis , dipst ick Protein 300 Not Available [address], [address], 05/20/2025 11:42:29 05/20/20 25 05/20/2025 urina lysis , dipst ick pH 6.0 Not Available [address], [address], 05/20/2025 11:42:29 05/20/20 25 05/20/2025 urina lysis , dipst ick Blood Small Not Available [address] [facility], [place], [address], 05/20/2025 11:42:29 05/20/20 25 05/20/2025 urina lysis , dipst ick Specific Geneva 1.025 Not Available [address], [place], [address], 05/20/2025 11:42:29 05/20/20 25 05/20/2025 urina lysis , dipst ick Ketone Negati ve Not Available [address], [place], [address], 05/20/2025 11:42:29 05/20/20 25 05/20/2025 urina lysis , dipst ick Bilirubin Negati ve Not Available [address], [place], [address], 05/20/2025 11:42:29 05/20/20 25 05/20/2025 urina lysis , dipst ick Glucose Negati ve Not Available [address], [place], [address], 05/20/2025 11:42:29 05/20/20 25 05/20/2025 urina lysis , dipst ick Appearance Cloudy Not Available [address], [place], [address], 05/20/2025 11:42:29 05/20/20 25 05/20/2025 urina lysis , dipst ick Color Yellow Not Available [address], [place], [address], 05/20/2025 11:42:29 06/27/2006/27/2025 caty DIAS observ ation record ed. [id number] [facility] [address], [place], [place], [address], 06/27/2025 14:06:45 Result Notes None recorded. Problems Name Problem SNOMED Code Status Onset Date Resolution Date Notes Provider Name and Address Organization Details Recorded Time Acute urinary tract infection 591651398 Completed 202410/09/[address] [place] [address], [address], [employer] 14:22:06 Chronic pain 53756479 Active 2024 ADOLFO Gutierrez [address] [place] [address], 37[address], [employer] 10:35:41 Acute right otitis media 991672803 Completed 202410/09/2024 ADOLFO Gutierrez [address] [place] [address], 317[address] 8, [employer] 10:35:31 Essential hypertensio n 70610725 Active 2024 ADOLFO Gutierrez [address] [place] [address], 647[address] 8, [place] [employer] 14:35:45 Chronic obstructive pulmonary disease 86686158 Active 2024 ADOLFO Gutierrez [address] [place] [address], 423[address]261 8, [employer] 10:35:53 Hyperlipide justin 89962907 Active 2024 ADOLFO Gutierrez [address] [place] [address], 81526[address] 8, [employer] 5 10:36:00 Gastroesoph ageal reflux disease 392268146 Active 2024 ADOLFO Gutierrez [address] [place] [address], 600[address] 8, [employer] 5 10:36:21 Vitamin D deficiency 99473914 Active 2024 ADOLFO Gutierrez [address] [place] [address], 67977-273 8, [place] [employer] 5 10:36:42 Depressive disorder 60275667 Active 2024 ADOLFO Gutierrez [address] [place] [address], 86073-076 8, [place] [employer] 5 10:36:58 Impacted cerumen 69596060 Active 2024 ADOLFO Gutierrez [address] [place] [address], 12[address] 8, [place] [employer] 5 17:54:28 Osteoporosi s 56435985 Active 2024 ADOLFO Gutierrez [address] [place] [address], 57068[address]888 8, [employer] 5 10:36:15 Acute urinary tract infection 553998751 Active 2024 ADOLFO Gutierrez [address] [place] [address], 35538[address]940 8, [employer] 5 14:22:06 Hypothyroid ism 22601159 Active 2024 ADOLFO Gutierrez [address] [place] [address], 05059[address]938 8, [employer] 5 12:38:58 Gastroesoph ageal reflux disease without esophagitis 924274159 Active 2024 ADOLFO Gutierrez [address] [place] [address], 39063[address]862 8, [employer] 5 13:34:44 Senile osteoporosi s 96184315 Active 2024 ADOLFO Gutierrez [address] [place] [address], 30[address] 8, [employer] 13:36:49 Tobacco dependence syndrome 57676630 Active 2024 ADOLFO Gutierrez [address] [place] [address], 26[address] 8, [employer] 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 5 14:22:12 Acute vaginitis 00561802 Active 2024 ADOLFO Gutierrez [address] [place] [address], 65772-099 8, [employer] 5 09:22:48 Bacterial urinary infection 974233324 Active 2024 ADOLFO Gutierrez [address] [place] [address], 36484[address]530 8, [employer] 5 11:20:47 Lichen sclerosus of vulva 623788004 Active 2024 ADOLFO Gutierrez [address] [place] [address], 36962[address]406 8, [employer] 5 11:21:07 Vaginal dryness 57886415 Active 2024 ADOLFO Gutierrez [address] [place] [address], 26323-550 8, [employer] 12:05:53 Problem Notes None recorded. Procedures Surgical History Date Name Laterality Status Provider Name and Address Organization Details Recorded Time 10/10/19 25 Cerumen Removal completed ADOLOF Gutierrez [address] [place] [address], [address], [employer] 10/09/2024 17:54:56 09/13/19 24 Most Recent Mammogram completed [employer] 09/21/2024 12:19:51 03/18/20 20 Date of Last Pap Smear completed [employer] 09/21/2024 12:19:37 Angioplasty completed [facility] [employer] 09/07/2024 08:57:47 Back Surgery completed [email or web address] [facility] [employer] 09/07/2024 08:57:47 Hysterectomy completed [employer] 09/07/2024 08:57:47 Tubal Ligation completed [employer] 09/07/2024 08:57:47 Dilation and Curettage completed [employer] 09/07/2024 08:57:47 Total Hysterectomy completed [employer] 09/07/2024 08:57:47 Stent completed [employer] [facility] [employer] 09/07/2024 09:11:45 Imaging Results None recorded. [...] TAKE 1 TABLET BY MOUTH ONCE DAILY 2024 active Not Available Not Available Not Avai lable Synthroid 75 mcg tablet TAKE 1 TABLET [...] (BMI) Body weight Body temperature Oxygen saturation Heart rate Systolic And Diastolic Systolic And Diastolic Provider Name and Address Organization Details Last Updated DateTime 162.56 cm 23.6 kg/m2 53615.5 9 g 97.6 [degF] 98 % 56 /min 152/80 mm[Hg] 150/78 mm[Hg] [facility] [employer] 11:46:25 Social History Question Answer Notes LastModified by Organizat ion Details LastModified Time Tobacco Smoking Status Current Every Day Smoker [facility] [employer] 09/07/2024 08:57:46 Do You Have An [...] Information not available 05/20/2025 What Type Of Heel Turner Do You Use? None Information not available [...] Or The Highest Degree You Have Received? [id number] Information not available 05/20/2025 How Many Days [...] Do You Have A Medical Power Of Umbrella Tipper? No Information not available 09/07/2024 What Was [...] Status Question Answer Note LastModified by Organizat [employer] Details LastModified Time Do you use any [...] Mental Status Question Answer Note LastModified by [employer] Details LastModified Time Do you feel stressed (tense, restless, nervous, or anxious, or unable to sleep at night)? [id number] Information not available 05/20/2025 Do you have [...] room visit since last appointm ent. N Depression Y Lung Disease Y Anxiety Disorder [...] quadrivalent, PF 4 completed [facility] null, [employer] 09/07/2024 08:57:57 COVID-19, mRNA, LNP-S, PF, 30 mcg/0.3 mL dose 1 completed [facility] null, [employer] 09/07/2024 08:57:57 COVID-19, mRNA, LNP-S, PF, 50 mcg/0.5 mL 4 completed [facility] null, [employer] 09/07/2024 08:57:57 Influenza, split virus, quadrivalent, PF 0 completed [facility] null, [employer] 09/07/2024 08:57:57 COVID-19, mRNA, LNP-S, PF, 30 mcg/0.3 mL dose 1 completed Not Available [facility] 05/20/2025 11:29:44 COVID-19, mRNA, LNP-S, PF, 30 mcg/0.3 mL dose 1 completed Not Available [facility] 05/20/2025 11:29:44 zoster recombinant 5 completed Not Available [facility] 05/20/2025 11:29:44 Influenza, high-dose, trivalent, PF 5 completed Not Available [facility] 05/20/2025 11:29:44 Pneumococcal conjugate PCV20, polysaccharide FVM460 conjugate, adjuvant, PF 5 completed Not Available [facility] 05/20/2025 11:29:44 RSV, recombinant, protein subunit RSVpreF, adjuvant reconstituted, 0.5 mL, PF 5 completed Not Available [facility] 05/20/2025 11:29:44 Tdap 5 completed Not Available [facility] 05/20/2025 11:29:44 Past Encounters Encounter ID Performer Location Encounter Start Date Encounter Closed Date Diagnosis/Indication Diagnosis SNOMED-CT Code Diagnosis ICD10 Code Diagnosis IMO Codes Diagnosis Note [id number] Alida Greg ADOLFO [facility] [address] [place] [address] 05/20/2025 11:29:13 05/20/2025 12:05:20 Dysuria 61350690 R30.0 99231 Abnormal urinalysis 1672 53940 R82.90 [id number] Hypothyroidism 26979349 E03.9 66321538 Serum crea tinine above reference range 190398437 R79.89 202399 Acute urin chiqui tract infection 050781844 N39.0 677133 Vaginal dryness 11330161 N89.8 [id number] Goals Section Goal Description Progress Status Start [...] Organization Details LastModified Time Essential hypertension Active [place] [facility] Not Available 12/25/2024 17:46 :52 Chronic obstructive pulmonary disease Active [facility] Not Available 12/25/2024 17: 47:20 Payers Encounter Date Sequence Insurance Name Policy Number Policy Howard Covered Member ID Howard Member ID Guarantor Name 05/20/2025 1 [place] [employer]/A DVANTAGE - HMO) [id number] Jocelyn Clark [id number] Jocelyn Clark Notes Date Note Type Note Provider Name and Address Organization Details Recorded Time 05/20/2025 text/html ROS as noted in the HPI Dysuria and frequency X 2 days. No fever. Has had 4 or 5 UTIs in the past year. ADOLFO Gutierrez [address] [place] [address], [place], [address], [facility] [employer] 05/20/2025 14:18:23 OBGyn Episode No OBEpisode recorded.
--- OUTSIDE RECORDS SUMMARY | 2025-07-12 14:12 | XMS_ITS | Data Portability ---
Author Organization [facility] [employer] [facility] Address [address] [place] [address] Care Team Providers Care Engine Assembly Supervisor Name Role Phone [facility] Pain Manag ement [phone] [facility] Company Accountant JANETTE ALVAREZ Community Health Worker [phone] ALIDA GARZA Primary Care Provider RAYNA Hurley Stamp Analyst Assessment Encounter Date Assessment Date Assessment LastModified by Organization Details LastModified Time 02/26/2025 02/26/2025 Patient presents with symptoms of UTI. Results of dipstick were negative for UTI. Advised to drink clear fluids, Tylenol for pain and take prescribed medications as instructed. Patient encouraged to follow up within 1 week if not improving. Not available 02/28/2025 16:28:59 Plan of Treatment Reminders Order Date Submit Date Provider Last Modified By Organization Details Last Modified Time Details Appointments None recorded. Lab urinalysis, dipstick [email or web address] [facility], [address] [facility], [place], [address], 12:05:37 culture, urine 2024 025 [place], [address] [place] [address], [place], [address], 18:07:55 TSH, ultra-sensi tive, serum 2024 025 [facility] ([facility]), [address], [place], [address], 5 18:07:54 BMP, serum or plasma 2024 025 [facility] ([facility]), [address], [place], [address], 18:07:53 culture, urine 2024 025 [facility] ([facility]), [address], [place], [address], 5 20:07:47 urinalysis, dipstick [address], [address] [place], [address], 11:31:33 bacterial vaginosis + vaginitis panel, vaginal 2024 025 [facility] ([facility]), [address] [place], [address], 20:07:46 urinalysis, dipstick [address], [address] [place], [address], 5 09:15:22 culture, urine 2024 025 [facility] ([facility]), [address] [place], [address], 5 00:06:49 TSH, ultra-sensi tive, serum 2024 025 [facility] ([facility]), [address] [facility], [place], [address], 5 01:07:22 urinalysis, dipstick [email or web address] [place] [address], [address] [facility], [place], [address], 12:18:29 culture, urine 2024 025 [place] [facility], [facility], [place], [address], 5 01:07:23 noninvasive colorectal cancer DNA + occult blood screening, QL, stool 2024 025 [facility] [employer], [address], [place], [address], 08:49:31 Referral None recorded. Procedures None recorded. Surgeries None recorded. Imaging LDCT, chest, for lung cancer screening 2024 [facility] Scheduling Department -New Scheduling Process, [facility], [place], [address], 11:08:59 Medication Orders levofloxaci n 500 mg tablet 2024 [place] [facility] #98809, [address], [place], [place], [id number], 5 05:02:23 conjugated estrogens 0.625 mg/gram vaginal cream 2024 025 [place] [facility], [address], [place], [place], [id number], 5 12:10:14 clobetasol 0.05 % topical cream 2024 [facility], [address], [place], [place], [id number], 11:53:26 levofloxaci n 500 mg tablet 2024 025 [facility] #29725, [address] [place], [id number], 5 05:02:23 Diflucan 150 mg tablet 2024 025 [facility] #07234, [address], [id number], 5 10:42:14 Fosamax 70 mg tablet 2024 025 [facility] #55544, [address], [place], [id number], 5 13:38:12 Calcium 600 + D(3) 600 mg-10 mcg (400 unit) tablet 2024 025 [facility] #78962, [address], [place], [id number], 5 13:38:34 Breztri Aerosphere 160 mcg-9mcg-4. 8mcg/actuat ion HFA aerosol inhaler 2024 025 [facility] #14504, [address], [place], [id number], 5 13:38:31 atorvastati n 10 mg tablet 2024 025 [facility] #79871, [address], [id number], 5 17:44:38 pantoprazol e 40 mg tablet,dipesh yed release 2024 025 [facility] #99774, [address], [id number], 5 13:38:26 metoprolol tartrate 100 mg tablet 2024 025 [facility] #00504, [address], [place], [id number], 5 13:38:41 hydralazine 25 mg tablet 2024 025 [facility] #93434, [address], [place], [id number], 5 13:38:38 valsartan 320 mg tablet 2024 025 [facility] #03655, [address], [place], [id number], 13:43:02 verapamil ER (SR) 120 mg tablet,exte nded release 2024 [facility] #45765, [address], [place], [id number], 17:46:48 duloxetine 60 mg capsule,del ayed release 2024 025 [facility] #24554, [address], [place], [id number], 5 13:38:07 lamotrigine 200 mg tablet 2024 025 [facility] #78387, [address], [place], [id number], 5 13:38:36 levothyroxi ne 75 mcg tablet 2024 025 [facility] #67705, [address], [place], [id number], 5 17:46:16 levothyroxi ne 75 mcg tablet 2024 025 [facility] #44500, [address], [place], [id number], 5 17:46:05 Macrobid 100 mg capsule 2024 025 [facility], [address] , [place], [place], [id number], 08:56:50 Patient TargetsNo targets recorded. Patient Instructions Encounter Date Encounter Id Patient Instructions Last Modified By Organization Details Last Modified Time 11/06/2024 [id number] painful urinatio n (dysuria): care instructions [email or web address] Not available 11/06/2024 12:18:29 hypothyroidism: care instructions [email or web address] Not available 11/06/2024 12:47:01 12/25/2024 [id number] deciding about using medicines to quit smoking [email or web address] Not available 12/25/2024 13:43:07 Quitting Tobacco : Care Instructions Not available 12/25/2024 13:43:07 chronic obstructive pulmonary disease (COPD): care instructions Not available 12/25/2024 13:37:52 learning about copd and how to prevent lung infections [email or web address] Not available 12/25/2024 13:37:52 high cholesterol : care instructions [email or web address] Not available 12/25/2024 13:37:53 osteoporosis: care instructions Not available 12/25/2024 13:37:52 chronic pain: care instructions [email or web address] Not available 12/25/2024 13:37:53 high blood pressure: care instructions [email or web address] Not available 12/25/2024 13:37:53 learning about high blood pressure [email or web address] Not available 12/25/2024 13:37:53 learning about mood disorders Not available 12/25/2024 13:37:53 hypothyroidism: care instructions [email or web address] Not available 12/25/2024 13:37:53 02/26/2025 [id number] painful urinatio n (dysuria): care instructions [email or web address] Not available 02/26/2025 09:15:22 05/20/2025 [id number] painful urinatio n (dysuria): care instructions [email or web address] Not available 05/20/2025 12:05:36 hypothyroidism: care instructions [email or web address] Not available 05/20/2025 12:06:37 Reason for Referral None Reported. Results Created Date Observation Date Name Description Value Unit Range Abnormal Flag Note LastModifiedBy Organization Detail LastModifiedTime 10/10/1910/10/2024 CBC WITH DIFFE RENTI AL/PL ATELE T WBC 8.0 x10e3 /uL 3.4-10 .8 normal Not Available [facility] ([facility]) [address] [place], [address], 10/11/2024 21:06:47 10/10/1910/10/2024 CBC WITH DIFFE RENTI AL/PL ATELE T RBC 3.92 x10e6 /uL 3.77-5 .28 normal Not Available [facility] ([facility]) [address] [place], [address], 10/11/2024 21:06:47 10/10/1910/10/2024 CBC WITH DIFFE RENTI AL/PL ATELE T hemoglobin 13.0 g/dL 11.1-1 5.9 normal Not Available [facility] ([facility]) [address] [place], [address], 10/11/2024 21:06:47 10/10/1910/10/2024 CBC WITH DIFFE RENTI AL/PL ATELE T hematocrit 39.7 % 34.0-4 6.6 normal Not Available [facility] ([facility]) [address] [place], [address], 10/11/2024 21:06:47 10/10/1910/10/2024 CBC WITH DIFFE RENTI AL/PL ATELE T MCV 101 fL 79-97 above high normal Not Available [facility] ([facility]) [address] [place], [address], 10/11/2024 21:06:47 10/10/19 25 10/10/2024 CBC WITH DIFFE RENTI AL/PL ATELE T MCH 33.2 pg 26.6-3 3.0 above high normal Not Available [facility] ([facility]) [address] [facility], [place], [address], 10/11/2024 21:06:47 10/10/1910/10/2024 CBC WITH DIFFE RENTI AL/PL ATELE T MCHC 32.7 g/dL 31.5-3 5.7 normal Not Available [facility] ([facility]) [address] [facility], [place], [address], 10/11/2024 21:06:47 10/10/1910/10/2024 CBC WITH DIFFE RENTI AL/PL ATELE T RDW 11.4 % 11.7-1 5.4 below low normal Not Available [facility] ([facility]) [address] [facility], [place], [address], 10/11/2024 21:06:47 10/10/1910/10/2024 CBC WITH DIFFE RENTI AL/PL ATELE T platelets 298 x10e3 /uL 150-45 0 normal Not Available [facility] ([facility]) [address] [facility], [place], [address], 10/11/2024 21:06:47 10/10/1910/10/2024 CBC WITH DIFFE RENTI AL/PL ATELE T neutrophils 65 % not estab. normal Not Available [facility] ([facility]) [address] [place], [address], 10/11/2024 21:06:47 10/10/1910/10/2024 CBC WITH DIFFE RENTI AL/PL ATELE T lymphs 22 % not estab. normal Not Available [facility] ([facility]) [address] [place], [address], 10/11/2024 21:06:47 10/10/1910/10/2024 CBC WITH DIFFE RENTI AL/PL ATELE T monocytes 9 % not estab. normal Not Available [facility] ([facility]) [address] [place], [address], 10/11/2024 21:06:47 10/10/19 25 10/10/2024 CBC WITH DIFFE RENTI AL/PL ATELE T eos 2 % not estab. normal Not Available [facility] ([facility]) [address] [place], [address], 10/11/2024 21:06:47 10/10/1910/10/2024 CBC WITH DIFFE RENTI AL/PL ATELE T basos 1 % not estab. normal Not Available [facility] ([facility]) [address] [place], [address], 10/11/2024 21:06:47 10/10/19 25 10/10/2024 CBC WITH DIFFE RENTI AL/PL ATELE T immature cells SEAFOOD SPECIALIST Not Available [facility] ([facility]) [address] [place], [address], 10/11/2024 21:06:47 10/10/19 25 10/10/2024 CBC WITH DIFFE RENTI AL/PL ATELE T neutrophils (absolute) 5.3 x10e3 /uL 1.4-7. 0 normal Not Available [facility] ([facility]) [address] [place], [address], 10/11/2024 21:06:47 10/10/19 25 10/10/2024 CBC WITH DIFFE RENTI AL/PL ATELE T lymphs (absolute) 1.8 x10e3 /uL 0.7-3. 1 normal Not Available [facility] ([facility]) [address] [place], [address], 10/11/2024 21:06:47 10/10/19 25 10/10/2024 CBC WITH DIFFE RENTI AL/PL ATELE T monocytes(ab solute) 0.7 x10e3 /uL 0.1-0. 9 normal Not Available [facility] ([facility]) [address] [place], [address], 10/11/2024 21:06:47 10/10/19 25 10/10/2024 CBC WITH DIFFE RENTI AL/PL ATELE T eos (absolute) 0.2 x10e3 /uL 0.0-0. 4 normal Not Available [facility] ([facility]) [address] [facility], [place], [address], 10/11/2024 21:06:47 10/10/19 25 10/10/2024 CBC WITH DIFFE RENTI AL/PL ATELE T baso (absolute) 0.1 x10e3 /uL 0.0-0. 2 normal Not Available [facility] ([facility]) [address] [facility], [place], [address], 10/11/2024 21:06:47 10/10/19 25 10/10/2024 CBC WITH DIFFE RENTI AL/PL ATELE T immature granulocytes 1 % not estab. Not Available [facility] ([facility]) [address] [facility], [place], [address], 10/11/2024 21:06:47 10/10/1910/10/2024 CBC WITH DIFFE RENTI AL/PL ATELE T immature grans (abs) 0.1 x10e3 /uL 0.0-0. 1 Not Available [facility] ([facility]) [address] [facility], [place], [address], 10/11/2024 21:06:47 10/10/1910/10/2024 CBC WITH DIFFE RENTI AL/PL ATELE T NRBC SEAFOOD SPECIALIST Not Available [facility] ([facility]) [address] [facility], [place], [address], 10/11/2024 21:06:47 10/10/19 25 10/10/2024 CBC WITH DIFFE RENTI AL/PL ATELE T hematology comments: SEAFOOD SPECIALIST Not Available [facility] ([facility]) [address] [place], [address], 10/11/2024 21:06:47 10/10/19 25 10/10/2024 COMP. METAB OLIC PANEL (14) glucose 94 mg/dL 70-99 normal Not Available [facility] ([facility]) [address] [place], [address], 10/11/2024 21:06:48 10/10/19 25 10/10/2024 COMP. METAB OLIC PANEL (14) BUN 13 mg/dL 8-27 normal Not Available [facility] ([facility]) [address] [place], [address], 10/11/2024 21:06:48 10/10/19 25 10/10/2024 COMP. METAB OLIC PANEL (14) creatinine 1.71 mg/dL 0.57-1 .00 above high normal Not Available [facility] ([facility]) [address] [place], [address], 10/11/2024 21:06:48 10/10/19 25 10/10/2024 COMP. METAB OLIC PANEL (14) eGFR 32 mL/mi n/1.7 3 >59 below low normal Not Available [facility] ([facility]) [address] [place], [address], 10/11/2024 21:06:48 10/10/1910/10/2024 COMP. METAB OLIC PANEL (14) BUN/creatini ne ratio 8 12-28 below low normal Not Available [facility] ([facility]) [address] [place], [address], 10/11/2024 21:06:48 10/10/1910/10/2024 COMP. METAB OLIC PANEL (14) sodium 140 mmol/ L 134-14 4 normal Not Available [facility] ([facility]) [address] [place], [address], 10/11/2024 21:06:48 10/10/19 25 10/10/2024 COMP. METAB OLIC PANEL (14) potassium 3.9 mmol/ L 3.5-5. 2 normal Not Available [facility] ([facility]) [address] [place], [address], 10/11/2024 21:06:48 10/10/19 25 10/10/2024 COMP. METAB OLIC PANEL (14) chloride 106 mmol/ L 96-106 normal Not Available [facility] ([facility]) [address] [place], [address], 10/11/2024 21:06:48 10/10/19 25 10/10/2024 COMP. METAB OLIC PANEL (14) carbon dioxide, total 18 mmol/ L 20-29 below low normal Not Available [facility] ([facility]) [address] [place], [address], 10/11/2024 21:06:48 10/10/19 25 10/10/2024 COMP. METAB OLIC PANEL (14) calcium 9.7 mg/dL 8.7-10 .3 normal Not Available [facility] ([facility]) [address] [place], [address], 10/11/2024 21:06:48 10/10/19 25 10/10/2024 COMP. METAB OLIC PANEL (14) protein, total 6.9 g/dL 6.0-8. 5 normal Not Available [facility] ([facility]) [address] [place], [address], 10/11/2024 21:06:48 10/10/19 25 10/10/2024 COMP. METAB OLIC PANEL (14) albumin 4.5 g/dL 3.9-4. 9 normal Not Available [facility] ([facility]) [address] [place], [address], 10/11/2024 21:06:48 10/10/19 25 10/10/2024 COMP. METAB OLIC PANEL (14) globulin, total 2.4 g/dL 1.5-4. 5 Not Available [facility] ([facility]) [address] [place], [address], 10/11/2024 21:06:48 10/10/19 25 10/10/2024 COMP. METAB OLIC PANEL (14) bilirubin, total <0.2 mg/dL 0.0-1. 2 Not Available [facility] ([facility]) [address] [place], [address], 10/11/2024 21:06:48 10/10/19 25 10/10/2024 COMP. METAB OLIC PANEL (14) alkaline phosphatase 90 IU/L 44-121 normal Not Available [facility] ([facility]) [address] [place], [address], 10/11/2024 21:06:48 10/10/19 25 10/10/2024 COMP. METAB OLIC PANEL (14) AST (SGOT) 16 IU/L 0-40 normal Not Available [facility] ([facility]) [address] [place], [address], 10/11/2024 21:06:48 10/10/19 25 10/10/2024 COMP. METAB OLIC PANEL (14) ALT (SGPT) 11 IU/L 0-32 normal Not Available [facility] ([facility]) [address] [place], [address], 10/11/2024 21:06:48 10/10/19 25 10/10/2024 LIPID PANEL cholesterol, total 137 mg/dL 100-19 9 normal Not Available [facility] ([facility]) [address] [place], [address], 10/11/2024 21:06:48 10/10/19 25 10/10/2024 LIPID PANEL triglyceride s 87 mg/dL 0-149 normal Not Available [facility] ([facility]) [address] [facility] [place], [address], 10/11/2024 21:06:48 10/10/19 25 10/10/2024 LIPID PANEL HDL cholesterol 59 mg/dL >39 normal Not Available [facility] ([facility]) [address] [place], [address], 10/11/2024 21:06:48 10/10/19 25 10/10/2024 LIPID PANEL VLDL cholesterol luisito 17 mg/dL 5-40 Not Available [facility] ([facility]) [address] [place], [address], 10/11/2024 21:06:48 10/10/19 25 10/10/2024 LIPID PANEL LDL chol calc ([facility]) 61 mg/dL 0-99 Not Available [facility]) [address] [place], [address], 10/11/2024 21:06:48 10/10/1910/10/2024 LIPID PANEL LDL calc comment: SEAFOOD SPECIALIST Not Available [facility] ([facility]) [address] [place], [address], 10/11/2024 21:06:48 10/10/19 25 10/10/2024 HCV ANTIB ODIN CASCA DE(PC R/GEN O) HCV Ab Reacti ve non reacti ve abnormal Not Available [facility] ([facility]) [address] [place], [address], 10/11/2024 21:06:48 10/10/19 25 10/10/2024 HCV ANTIB ODIN CASCA DE(PC R/GEN O) test information: Commen t The quant itati ve range of this assay is 15 IU/mL to 100 keyla on IU/mL . Not Available [facility] ([facility]) [address] [place], [address], 10/11/2024 21:06:48 10/10/19 25 10/11/2024 HCV ANTIB ODIN CASCA DE(PC R/GEN O) hepatitis C quantitation HCV Not Detect ed IU/mL Not Available [facility] ([facility]) [address] [place], [address], 10/11/2024 21:06:48 10/10/19 25 10/11/2024 HCV ANTIB ODIN CASCA DE(PC R/GEN O) HCV log10 SEAFOOD SPECIALIST Not Available [facility] ([facility]) [address] [facility], [place], [address], 10/11/2024 21:06:48 10/10/1910/11/2024 HCV ANTIB ODIN CASCA DE(PC R/GEN O) interpretati on: Commen t Posit mando HCV antib odin scree n witho ut the prese nce of HCV RNA is consi stent with a resol nacho past infec tion or a false posit mando HCV antib odin. Consi jay jay repea t testi ng after one month . Not Available [facility] ([facility]) [address] [facility], [place], [address], 10/11/2024 21:06:48 10/10/1910/11/2024 HCV ANTIB ODIN CASCA DE(PC R/GEN O) HCV genotype COMMEN T Not indic ated Not Available [facility] ([facility]) [address] [place], [address], 10/11/2024 21:06:48 10/10/1910/10/2024 TSH TSH 0.068 uIU/m L 0.450- 4.500 below low normal Not Available [facility] ([facility]) [address] [place], [address], 10/11/2024 21:06:49 10/10/19 25 10/10/2024 VITAM IN [...] and D. [place]: The [facility]ade [facility] Press . 2. [place], [place], Matteo off-F errar i MIRAMONTES, et al. Evalu ation , treat ment, and preve ntion of vitam in D defic iency : an Endoc rine Socie ty clini luisito pract ice guide line. JCEM. 2010; 96(7) :1911 -30. Not Available [facility] ([facility]) [address] [facility], [place], [address], 10/11/2024 21:06:49 10/10/1910/10/2024 HIV AB/P2 4 AG WITH REFLE X HIV Ab/P24 Ag screen Non Reacti ve non reacti ve HIV-1 /HIV- 2 antib odies and HIV-1 p24 antig en were NOT detec darlin. There is no labor atory evide nce of HIV infec tion. HIV Negat mando Not Available [facility] ([facility]) [address] [facility], [place], [address], 10/11/2024 21:06:49 11/07/1911/07/2024 TSH TSH 0.157 uIU/m L 0.450- 4.500 below low normal Not Available [facility] ([facility]) [address] [facility], [place], [address], 11/10/2024 01:07:22 11/07/19 25 11/10/2024 URINE CULTU RE, ROUTI NE urine culture, routine Final report abnormal Not Available [facility] ([facility]) [address] [facility], [place], [address], 11/10/2024 01:07:23 11/07/1911/10/2024 URINE CULTU RE, ROUTI [...] ng units per mL Not Available [facility] ([facility]) [address] [facility], [place], [address], 11/10/2024 01:07:23 11/07/1911/10/2024 URINE CULTU RE, ROUTI [...] thopr im/Liu lfa S Not Available [facility] ([facility]) [address] [facility], [place], [address], 11/10/2024 01:07:23 11/07/1911/06/2024 urina lysis , dipst ick Leukocytes Trace Not Available [facility] [address] [place], [place] [address]ther [facility], [place], [address], 11/06/2024 11:41:13 11/07/1911/06/2024 urina lysis , dipst ick Nitrite positi ve Not Available [address], [place], [address], 11/06/2024 11:41:13 11/07/19 25 11/06/2024 urina lysis , dipst ick Urobilinogen .2 Not Available [address], [place], [address], 11/06/2024 11:41:13 11/07/19 25 11/06/2024 urina lysis , dipst ick Protein 300 Not Available [address], [place], [address], 11/06/2024 11:41:13 11/07/1911/06/2024 urina lysis , dipst ick pH 5.5 Not Available [address], [place], [address], 11/06/2024 11:41:13 11/07/1911/06/2024 urina lysis , dipst ick Blood Small Not Available [address], [place], [address], 11/06/2024 11:41:13 11/07/1911/06/2024 urina lysis , dipst ick Specific [place] 1.030 Not Available [address], [place], [address], 11/06/2024 11:41:13 11/07/1911/06/2024 urina lysis , dipst ick Ketone Negati ve Not Available [address], [place], [address], 11/06/2024 11:41:13 11/07/19 25 11/06/2024 urina lysis , dipst ick Bilirubin Negati ve Not Available [address], [place], [address], 11/06/2024 11:41:13 11/07/19 25 11/06/2024 urina lysis , dipst ick Glucose Negati ve Not Available [address], [place], [address], 11/06/2024 11:41:13 11/07/19 25 11/06/2024 urina lysis , dipst ick Appearance Slight ly Cloudy Not Available [address], [address], 11/06/2024 11:41:13 11/07/19 25 11/06/2024 urina lysis , dipst ick Color Yellow Not Available [address], [place], [address], 11/06/2024 11:41:13 02/27/20 25 02/28/2025 URINE CULTU RELIZ urine culture, routine Final report Not Available [facility] ([facility]) [address] [facility], [place], [address], 02/28/2025 00:06:49 02/27/20 25 02/28/2025 URINE CULTU RELIZ NE result 1 No growth Not Available [facility] ([facility]) [address] [facility], [place], [address], 02/28/2025 00:06:49 02/27/20 25 02/26/2025 urina lysis , dipst ick Glucose Negati ve Not Available [address], [place], [address], 02/26/2025 08:56:27 02/27/20 25 02/26/2025 urina lysis , dipst ick Bilirubin Negati ve Not Available [address], [place], [address], 02/26/2025 08:56:27 02/27/20 25 02/26/2025 urina lysis , dipst ick Ketone Negati ve Not Available [address], [place], [address], 02/26/2025 08:56:27 02/27/20 25 02/26/2025 urina lysis , dipst ick Specific [place] 1.020 Not Available [address], [place], [address], 02/26/2025 08:56:27 02/27/20 25 02/26/2025 urina lysis , dipst ick Blood Negati ve Not Available [address], [place], [address], 02/26/2025 08:56:27 02/27/20 25 02/26/2025 urina lysis , dipst ick pH 7.0 Not Available [address], [address], 02/26/2025 08:56:27 02/27/20 25 02/26/2025 urina lysis , dipst ick Protein 300 Not Available [address], [address], 02/26/2025 08:56:27 02/27/20 25 02/26/2025 urina lysis , dipst ick Urobilinogen .2 Not Available [address], [place], [address], 02/26/2025 08:56:27 02/27/20 25 02/26/2025 urina lysis , dipst ick Nitrite negati ve Not Available [address], [place], [address], 02/26/2025 08:56:27 02/27/20 25 02/26/2025 urina lysis , dipst ick Leukocytes Trace Not Available [address], [place], [address], 02/26/2025 08:56:27 02/27/20 25 02/26/2025 urina lysis , dipst ick Appearance Clear Not Available [address], [place], [address], 02/26/2025 08:56:27 02/27/20 25 02/26/2025 urina lysis , dipst ick Color Yellow Not Available [address], [place], [address], 02/26/2025 08:56:27 03/05/20 25 03/06/2025 NUSWA B VAGIN ITIS (VG) atopobium vaginae Modera te - 1 score Not Available [facility] ([facility]) [address] [facility], [place], [address], 03/08/2025 20:07:46 03/05/20 25 03/06/2025 NUSWA B VAGIN ITIS (VG) bvab 2 Modera te - 1 score Not Available [facility] ([facility]) [address] [facility], [place], [address], 03/08/2025 20:07:46 03/05/20 25 03/06/2025 NUSWA B [...] prese nce of BV. Not Available [facility] ([facility]) [address] [facility], [place], [address], 03/08/2025 20:07:46 03/05/20 25 03/06/2025 NUSWA B VAGIN ITIS (VG) deja albicans, JAYLA Negati ve negati ve Not Available [facility] ([facility]) [address] [place], [address], 03/08/2025 20:07:46 03/05/20 25 03/06/2025 NUSWA B VAGIN ITIS (VG) deja glabrata, JAYLA Negati ve negati ve Not Available [facility] ([facility]) [address] [place], [address], 03/08/2025 20:07:46 03/05/20 25 03/07/2025 NUSWA B VAGIN ITIS (VG) trich vag by JAYLA Negati ve negati ve Not Available [facility] ([facility]) [address] [place], [address], 03/08/2025 20:07:46 03/05/20 25 03/08/2025 URINE CULTU RE, ROUTI NE urine culture, routine Final report abnormal Not Available [facility] ([facility]) [address] [facility], [place], [address], 03/08/2025 20:07:46 03/05/20 25 03/08/2025 URINE CULTU [...] ng units per mL Not Available [facility] ([facility]) [address] [facility], [place], [address], 03/08/2025 20:07:46 03/05/20 25 03/08/2025 URINE CULTU RE, ROUTI NE antimicrobia l susceptibili ty Commen t S = Susce ptibl e; I = Inter media te; R = Resis tant P = Posit madno; N = Negat mando MICS are expre [...] thopr im/Liu lfa S Not Available [facility] ([facility]) [address] [facility], [place], [address], 03/08/2025 20:07:46 03/05/20 25 03/05/2025 urina lysis , dipst ick Leukocytes Small Not Available [facility] [address], [place], [address], 03/05/2025 10:48:28 03/05/20 25 03/05/2025 urina lysis , dipst ick Nitrite positi ve Not Available [facility] [address] [place] [address], [place], [address], 03/05/2025 10:48:28 03/05/20 25 03/05/2025 urina lysis , dipst ick Urobilinogen .2 Not Available [address], [place], [address], 03/05/2025 10:48:28 03/05/20 25 03/05/2025 urina lysis , dipst ick Protein 300 Not Available [address], [place], [address], 03/05/2025 10:48:28 03/05/20 25 03/05/2025 urina lysis , dipst ick pH 7.0 Not Available [address], [place], [address], 03/05/2025 10:48:28 03/05/20 25 03/05/2025 urina lysis , dipst ick Blood Small Not Available [address], [place], [address], 03/05/2025 10:48:28 03/05/20 25 03/05/2025 urina lysis , dipst ick Specific [place] 1.030 Not Available [address], [place], [address], 03/05/2025 10:48:28 03/05/20 25 03/05/2025 urina lysis , dipst ick Ketone Negati ve Not Available [facility] [address] [place] [address], [place], [address], 03/05/2025 10:48:28 03/05/20 25 03/05/2025 urina lysis , dipst ick Bilirubin Negati ve Not Available [address], [place], [address], 03/05/2025 10:48:28 03/05/20 25 03/05/2025 urina lysis , dipst ick Glucose Negati ve Not Available [address], [place], [address], 03/05/2025 10:48:28 03/05/20 25 03/05/2025 urina lysis , dipst ick Appearance Cloudy Not Available [address], [place], [address], 03/05/2025 10:48:28 03/05/20 25 03/05/2025 urina lysis , dipst ick Color Yellow Not Available [address], [place], [address], 03/05/2025 10:48:28 05/20/20 25 05/21/2025 BASIC METAB OLIC PANEL (8) glucose 77 mg/dL 70-99 normal Not Available [facility] ([facility]) [address] [facility], [place], [address], 05/23/2025 18:07:53 05/20/20 25 05/21/2025 BASIC METAB OLIC PANEL (8) BUN 25 mg/dL 8-27 normal Not Available [facility] ([facility]) [address] [facility], [place], [address], 05/23/2025 18:07:53 05/20/20 25 05/21/2025 BASIC METAB OLIC PANEL (8) creatinine 2.28 mg/dL 0.57-1 .00 above high normal Not Available [facility] ([facility]) [address] [facility] [place], [address], 05/23/2025 18:07:53 05/20/20 25 05/21/2025 BASIC METAB OLIC PANEL (8) eGFR 23 mL/mi n/1.7 3 >59 below low normal Not Available [facility] ([facility]) [address] [facility] [place], [address], 05/23/2025 18:07:53 05/20/20 25 05/21/2025 BASIC METAB OLIC PANEL (8) BUN/creatini ne ratio 11 12-28 below low normal Not Available [facility] ([facility]) [address] [place], [address], 05/23/2025 18:07:53 05/20/20 25 05/21/2025 BASIC METAB OLIC PANEL (8) sodium 136 mmol/ L 134-14 4 normal Not Available [facility] ([facility]) [address] [place], [address], 05/23/2025 18:07:53 05/20/20 25 05/21/2025 BASIC METAB OLIC PANEL (8) potassium 4.0 mmol/ L 3.5-5. 2 normal Not Available [facility] ([facility]) [address] [place], [address], 05/23/2025 18:07:53 05/20/20 25 05/21/2025 BASIC METAB OLIC PANEL (8) chloride 103 mmol/ L 96-106 normal Not Available [facility] ([facility]) [address] [place], [address], 05/23/2025 18:07:53 05/20/20 25 05/21/2025 BASIC METAB OLIC PANEL (8) carbon dioxide, total 18 mmol/ L 20-29 below low normal Not Available [facility] ([facility]) [address] [place], [address], 05/23/2025 18:07:53 05/20/20 25 05/21/2025 BASIC METAB OLIC PANEL (8) calcium 9.7 mg/dL 8.7-10 .3 normal Not Available [facility] ([facility]) [address] [place], [address], 05/23/2025 18:07:53 05/20/20 25 05/21/2025 TSH TSH 8.750 uIU/m L 0.450- 4.500 above high normal Not Available [facility] ([facility]) [address] [place], [address], 05/23/2025 18:07:54 05/20/20 25 05/23/2025 URINE CULTU RELIZ NE urine culture, routine Final report abnormal Not Available [facility] ([facility]) [address] [place], [address], 05/23/2025 18:07:54 05/20/2005/23/2025 URINE CULTU RELIZ NE [...] ng units per mL Not Available [facility] ([facility]) [address] [place], [address], 05/23/2025 18:07:54 05/20/20 25 05/23/2025 URINE CULTU [...] thopr im/Liu lfa S Not Available [facility] ([facility]) [address] [facility], [place], [address], 05/23/2025 18:07:54 05/20/20 25 05/20/2025 urina lysis , dipst ick Leukocytes Small Not Available [address], [address], 05/20/2025 11:42:29 05/20/20 25 05/20/2025 urina lysis , dipst ick Nitrite negati ve Not Available [address], [address], 05/20/2025 11:42:29 05/20/20 25 05/20/2025 urina lysis , dipst ick Urobilinogen .2 Not Available [address], [address], 05/20/2025 11:42:29 05/20/20 25 05/20/2025 urina lysis , dipst ick Protein 300 Not Available [address], [address], 05/20/2025 11:42:29 05/20/20 25 05/20/2025 urina lysis , dipst ick pH 6.0 Not Available [address], [place], [address], 05/20/2025 11:42:29 05/20/20 25 05/20/2025 urina lysis , dipst ick Blood Small Not Available [address], [place], [address], 05/20/2025 11:42:29 05/20/20 25 05/20/2025 urina lysis , dipst ick Specific [place] 1.025 Not Available [address], [place], [address], 05/20/2025 11:42:29 05/20/20 25 05/20/2025 urina lysis , dipst ick Ketone Negati ve Not Available [address], [place], [address], 05/20/2025 11:42:29 05/20/20 25 05/20/2025 urina lysis , dipst ick Bilirubin Negati ve Not Available [address], [address], 05/20/2025 11:42:29 05/20/20 25 05/20/2025 urina lysis , dipst ick Glucose Negati ve Not Available [address], [address], 05/20/2025 11:42:29 05/20/20 25 05/20/2025 urina lysis , dipst ick Appearance Cloudy Not Available [address], [address], 05/20/2025 11:42:29 05/20/20 25 05/20/2025 urina lysis , dipst ick Color Yellow Not Available [facility] [address] [facility], [place], [address], 05/20/2025 11:42:29 10/31/19 25 10/23/2024 DEXA No observ ation record ed. [email or web address] [facility] Scheduling Department -New Scheduling Process [address] [facility] [address], [place], [address], 10/30/2024 10:37:10 01/11/20 25 01/03/2025 LDCT, chest , for lung cance r scree renan No observ ation record ed. [facility] Scheduling [facility] -New Scheduling Process [facility] [address], [place], [address], 01/10/2025 16:30:35 06/27/20 25 06/27/2025 US, gallb ladde r No observ ation record ed. [email or web address], [place], [address], 06/27/2025 14:06:45 Result Notes None recorded. Problems Name Problem SNOMED Code Status Onset Date Resolution Date Notes Provider Name and Address Organization Details Recorded Time Acute urinary tract infection 064952528 Completed 202410/09/2024 ADOLFO Gutierrez [address] [place] [address], [address], [place] [employer] 14:22:06 Chronic pain 37803307 Active 2024 ADOLFO Gutierrez [address] [place] [address], [address], [place] [employer] 10:35:41 Acute right otitis media 191670618 Completed 202410/09/2024 ADOLFO Gutierrez [address] [place] [address], [address], [email or web address] 10:35:31 Essential hypertensio n 60881403 Active 2024 ADOLFO Gutierrez [address] [place] [address], [address], [email or web address] 14:35:45 Chronic obstructive pulmonary disease 23211049 Active 2024 ADOLFO Gutierrez [address] [place] [address], [address] 8, [email or web address] 10:35:53 Hyperlipide justin 63862689 Active 2024 ADOLFO Gutierrez [address] [place] [address], [address] 8, [email or web address] 10:36:00 Gastroesoph ageal reflux disease 574242301 Active 2024 ADOLFO Gutierrez [address] [place] [address], [address] 8, [email or web address] 10:36:21 Vitamin D deficiency 41104201 Active 2024 ADOLFO Gutierrez [address] [place] [address], [address] 8, [email or web address] 10:36:42 Depressive disorder 58407468 Active 2024 ADOLFO Gutierrez [address] [place] [address], [address], [email or web address] 10:36:58 Impacted cerumen 84535076 Active 2024 ADOLFO Gutierrez [address] [place] [address], 48[address] 8, [email or web address] 17:54:28 Osteoporosi s 53347364 Active 2024 ADOLFO Gutierrez [address] [place] [address], [address] 8, [email or web address] 10:36:15 Acute urinary tract infection 748009512 Active 2024 ADOLFO Gutierrez [address] [place] [address], [address] 8, [place] [employer] 14:22:06 Hypothyroid ism 12014422 Active 2024 DAOLFO Gutierrez [address] [place] [address], [address] 8, [place] [employer] 12:38:58 Gastroesoph ageal reflux disease without esophagitis 129806738 Active 2024 ADOLFO Gutierrez [address] [place] [address], [address] 8, [place] [employer] 13:34:44 Senile osteoporosi s 52345960 Active 2024 ADOLFO Gutierrez [address] [place] [address], 606[address], [place] [employer] 13:36:49 Tobacco dependence syndrome 20658823 Active 2024 ADOLFO Gutierrez [address] [place] [address], 15[address], [place] [employer] 13:42:45 Mandibulofa cial dysostosis, macroblepha jorge, macrostomia syndrome 728001394 Active 2024 ADOLFO Gutierrez [address] [place] [address], 296[address] 8, [place] [employer] 14:22:12 Acute vaginitis 63524876 Active 2024 ADOLFO Gutierrez [address] [place] [address], 569[address] 8, [place] [employer] 09:22:48 Bacterial urinary infection 058436693 Active 2024 ADOLFO Gutierrez [address] [place] [address], 11[address] 8, [place] [employer] 11:20:47 Lichen sclerosus of vulva 593705715 Active 2024 ADOLFO Gutierrez [address] [place] [address], [address] 8, [employer] 11:21:07 Vaginal dryness 04623585 Active 2024 ADOLFO Gutierrez [address] [place], [address], [employer] 12:05:53 Problem Notes None recorded. Procedures Surgical History Date Name Laterality Status Provider Name and Address Organization Details Recorded Time 10/10/19 25 Cerumen Removal completed ADOLFO Gutierrez [address] [place] [address], [address], [employer] 10/09/2024 17:54:56 09/13/19 24 Most Recent Mammogram completed [employer] 09/21/2024 12:19:51 03/18/20 20 Date of Last Pap Smear completed [employer] 09/21/2024 12:19:37 Angioplasty completed [facility] [employer] 09/07/2024 08:57:47 Back Surgery completed [employer] 09/07/2024 08:57:47 Hysterectomy completed [employer] 09/07/2024 08:57:47 Tubal Ligation completed [employer] 09/07/2024 08:57:47 Dilation and Curettage completed [employer] 09/07/2024 08:57:47 Total Hysterectomy completed [employer] 09/07/2024 08:57:47 Stent completed [employer] 09/07/2024 09:11:45 Imaging Results None recorded. [...] weight Body temperature Heart rate Oxygen saturation Systolic And Diastolic Systolic And Diastolic Systolic And Diastolic Provider Name and Address Organization Details Last Updated DateTime 5 162.56 cm 25.7 kg/m2 02199.4 2 g 98.2 [degF] 56 /min 95 % 166/84 mm[Hg] 164/82 mm[Hg] 156/76 mm[Hg] [employer] [place] [facility] [employer] 5 11:18:46 Date Recorded Body height Body mass index (BMI) Body weight Oxygen saturation Heart rate Body temperature Systolic And Diastolic Systolic And Diastolic Systolic And Diastolic Provider Name and Address Organization Details Last Updated DateTime 5 162.56 cm 25 kg/m2 04671.7 7 g 96 % 58 /min 98 [degF] 154/74 mm[Hg] 150/86 mm[Hg] 150/78 mm[Hg] [employer] 5 14:48:59 Date Recorded Body height Body mass index (BMI) Body weight Oxygen saturation Heart rate Body temperature Systolic And Diastolic Systolic And Diastolic Systolic And Diastolic Provider Name and Address Organization Details Last Updated DateTime 5 162.56 cm 24.4 kg/m2 02290.8 4 g 98 % 62 /min 97.8 [degF] 160/80 mm[Hg] 168/80 mm[Hg] 160/80 mm[Hg] [employer] 5 14:56:47 Date Recorded Body height Body mass index (BMI) Body weight Oxygen saturation Heart rate Body temperature Systolic And Diastolic Systolic And Diastolic Provider Name and Address Organization Details Last Updated DateTime 5 162.56 cm 24.4 kg/m2 36659.1 2 g 98 % 56 /min 98 [degF] 144/78 mm[Hg] 156/70 mm[Hg] [employer] 5 10:45:22 Date Recorded Body height Body mass index (BMI) Body weight Body temperature Oxygen saturation Heart rate Systolic And Diastolic Systolic And Diastolic Provider Name and Address Organization Details Last Updated DateTime 5 162.56 cm 23.6 kg/m2 95323.5 9 g 97.6 [degF] 98 % 56 /min 152/80 mm[Hg] 150/78 mm[Hg] [employer] 5 11:46:25 Social History Question Answer Notes LastModified by Organizat ion Details LastModified Time Tobacco Smoking Status Current Every Day Smoker [employer]. 09/07/2024 08:57:46 Do You Have An Advance [...] Information not available 05/20/2025 What Type Of Stove Tender Do You Use? None Information not available [...] Or The Highest Degree You Have Received? [id number] Information not available 05/20/2025 How Many Days [...] Do You Have A Medical Power Of Parliamentary Librarian? No Information not available 09/07/2024 What Was [...] Functional Status Question Answer Note LastModified by [employer] Details LastModified Time Do you use [...] anxious, or unable to sleep at night)? [id number] Information not available 05/20/2025 Do you have [...] quadrivalent, PF 4 completed [employer] null, [employer] 09/07/2024 08:57:57 COVID-19, mRNA, LNP-S, PF, 30 mcg/0.3 mL dose 1 completed [employer] null, [employer] 09/07/2024 08:57:57 COVID-19, mRNA, LNP-S, PF, 50 mcg/0.5 mL 4 completed [employer] null, [employer] 09/07/2024 08:57:57 Influenza, split virus, quadrivalent, PF 0 completed [employer] null, [employer] 09/07/2024 08:57:57 COVID-19, mRNA, LNP-S, PF, 30 mcg/0.3 mL dose 1 completed Not Available [facility] 05/20/2025 11:29:44 COVID-19, mRNA, LNP-S, PF, 30 mcg/0.3 mL dose 1 completed Not Available [facility] 05/20/2025 11:29:44 zoster recombinant 5 completed Not Available [facility] 05/20/2025 11:29:44 Influenza, high-dose, trivalent, PF 5 completed Not Available [facility] 05/20/2025 11:29:44 Pneumococcal conjugate PCV20, polysaccharide [id number] conjugate, adjuvant, PF 5 completed Not Available [facility] 05/20/2025 11:29:44 RSV, recombinant, protein subunit RSVpreF, adjuvant reconstituted, 0.5 mL, PF 5 completed Not Available [facility] 05/20/2025 11:29:44 Tdap 5 completed Not Available [facility] 05/20/2025 11:29:44 Past Encounters Encounter ID Performer Location Encounter Start Date Encounter Closed Date Diagnosis/Indication Diagnosis SNOMED-CT Code Diagnosis ICD10 Code Diagnosis IMO Codes Diagnosis Note [id number] ADOLFO Gutierrez [facility] [address] [place] [address] 09/07/2024 08:42:23 09/07/2024 09:44:13 Dysuria 56822644 R30.0 Acute urin chiqui tract infection 492252113 N39.0 Chronic pain 01191403 G8 9.29 Essential hypertension 91983122 I10 Given 0.1 mg clonidine in office today with improvemen t of BPPatient states she forgot to take her regular meds Acute righ t otitis media 049950078 H66.[id number] [facility] [address] [place] [address] 09/20/2024 14:12:39 09/20/2024 14:35:31 Essential hypertension 83094185 I10 Currently taking Lisinopril , Metoprolol Will add hydralazin eSon will check BP at home over the weekendRen al artery duplex to check stentsRefe r back to cardiology To ER if severe pain, shortness of breath, chest pain, etc. Body mass index 25-29 - overweight 300330805 Z68.[id number] [facility] [address] [place] [address] 10/09/2024 09:28:51 10/09/2024 10:54:34 Screening for osteoporosis 987872454 Z13.820 Essential hypertension 99808760 I10 HIV screening 079380764 Z11.4 Hepatitis C screening 41 7032187 Z11.59 Impacted cerumen 0885132 6 H61.21 Irrigated without issues [id number] ADOLFO Gutierrez [facility] [address] [place] [address] 11/06/2024 10:58:39 11/06/2024 12:08:07 Screening for malignant neoplasm of colon 725043154 Z12.[address] imulating hormone level below reference range 217090096 R94.6 Dysuria 45481321 R30.0 Leukocytes in urine 2757 46324 R82.79 Acute urin chiqui tract infection 288713572 N39.0 Hypothyroidism 86624571 E03.9 [id number] ADOLFO Gutierrez [address] [address] 12/25/2024 12:56:22 12/25/2024 13:45:23 Hypothyroidism 78960193 E03.9 Chronic ob structive pulmonary disease 84175218 J44.9 Depressive disorder 3548 9007 F32.A Chronic pain 33096025 G8 9.29 Essential hypertension 67430056 I10 Hyperlipidemia 04078460 E78.5 Vitamin D deficiency 347 68064 M81.0 Gastroesop hageal reflux disease without esophagitis 479804297 K21.9 416120 Senile osteoporosis 1804 0001 M81.0 9190451 Osteoporosis 17779763 M8 1.0 Tobacco de pendence syndrome 40070166 F17.200 74875 [id number] ADOLFO Gutierrez [address] [address] 02/26/2025 08:48:52 02/26/2025 09:22:23 Dysuria 28120076 R30.0 60517 Leukocytes in urine 2757 86079 R82.998 577811 Acute vaginitis 45161475 N76.0 57483 Urine culture pending but likely candidiasi sWill treat with Diflucan - call if symptoms not improving [id number] ADOLFO Gutierrez [facility] [address] [place] [id number] 03/05/2025 10:31:30 03/05/2025 11:07:38 Spasm of urinary bladder 852681077 N32.89 541098 Abnormal urinalysis 1672 91729 R82.90 862816 Pruritus of vagina 86989 003 N89.8 835782 Bacterial urinary infection 318845298 N39.0 A49.9 7651675 Lichen scl erosus of vulva 881897547 N90.4 [id number] [facility] [address] [place] [address] 05/20/2025 11:29:13 05/20/2025 12:05:20 Dysuria 81634642 R30.0 00135 Abnormal urinalysis 1672 86560 R82.90 792642 Hypothyroidism 62328435 E03.9 06602494 Serum crea tinine above reference range 609650696 R79.89 163498 Acute urin chiqui tract infection 664085948 N39.0 723063 Vaginal dryness 51374931 N89.8 [id number] Goals Section Goal Description Progress Status Start [...] Guarantor Name 05/18/2025 [place] Jocelyn Clark [id number] Jocelyn Clark 05/18/2025 1 [place]/A DVANTAGE - HMO) [id number] Jocelyn Mike Amber [id number] Jocelyn Clark Notes Date Note Type [...] sure if she can. ADOLFO Gutierrez [address] [place], [address], [email or web address]. 11/08/2024 15:21:08 12/25/2024 text/html ROS as noted in the HPI Patient presents for followup.History of hypothyroidism. Stable on Synthroid.History of COPD. She is doing well with Brextri.History of HTN. Has been seeing us as well as cardiology. Blood pressure today is still slightly elevated but is the best it has ever been. Denies headache, chest pain, vertigo, dyspnea. ADOLFO Gutierrez [address] [place], [address], [email or web address] 12/27/2024 13:20:07 02/26/2025 text/html ROS as noted in the HPI Patient complains of burning and itching after urination for the past few days. No fever. ADOLFO Gutierrez [address] [place], [address], [email or web address] 02/28/2025 16:29:43 03/05/2025 text/html ROS as [...] a cream for that. ADOLFO Gutierrez [address] [place], [address], [employer] 03/05/2025 13:50:26 05/20/2025 text/html ROS as noted in the HPI Dysuria and frequency X 2 days. No fever. Has had 4 or 5 UTIs in the past year. ADOLFO Gutierrez [address] [place], [address], [employer] 05/20/2025 14:18:23 OBGyn Episode No OBEpisode recorded.
--- OUTSIDE RECORDS SUMMARY | 2025-07-12 14:12 | XMS_ITS | Clinical Summary ---
Author Organization [facility] Address [address] [place] [address] Care Team Providers Care Scientist Electronics Name Role Phone Ayse Roth FOOD SERVICE COUNTER CLERK Primary Care Provider [phone] Allergies No known active allergies Medications albuterol [...] by mouth 2 (two) times a day. 05/02/20 24 Active atorvastatin (Lipitor) 80 MG tablet Take 1 tablet (80 mg) by mouth 1 (one) time each day. 04/14/20 24 Active valsartan (Diovan) 320 MG tablet Take 1 tablet (320 mg) by mouth daily. Active verapamil (Calan) 120 MG tablet Take 1 tablet (120 mg) by mouth in the evening. Active alendronate (Fosamax) 70 MG tablet Take 1 tablet every week by oral route for 90 days, for osteoporosis . Active Calcium Carb-Cholecalcife rol 600-10 MG-MCG tablet Take 1 tablet by mouth daily. Active levothyroxine (Synthroid, Levoxyl) 75 MCG tabletIndications :Hypothyroidism, unspecified type TAKE 1 TABLET BY MOUTH 30 TO 60 MINUTES BEFORE BREAKFAST DAILY 30 tablet 1 02/12/20 25 Active spironolactone (Aldactone) 25 MG tabletIndications :Hypertensive chronic kidney disease with stage 1 through stage 4 chronic kidney disease, or unspecified chronic kidney disease Take 1 tablet by mouth daily. 90 tablet 3 06/07/20 25 Active sodium zirconium cyclosilicate (Lokelma) 10 g packet Take 10 g by mouth 3 times a week. 9 each 07/05/20 25 Active sodium zirconium cyclosilicate (Lokelma) 10 g packet Take 10 g by mouth daily. 21 each 07/05/20 25 025 Discontinued Active Problems Problem Noted Date Diagnosed [...] hyperlipidemia 04/05/2024 Coronary artery disease invo lving stebbins coronary artery of stebbins heart without angina pectoris 04/05/2024 Resolved Problems Problem Noted Date Diagnosed Date Resolved Date Urinary tract infection with hematuria 08/03/2024 04/07/2025 Encounters Date Type Department Care Team Description 07/05/2025 Telephone [facility] Nephrology, Bone & Mineral Metabolism [address] , [address] [place] [address] Tye Bethea, PharmD 06/25/2025 Telephone [facility] Nephrology, Bone & Mineral Metabolism [address] , [address] [place] [address] Aixa Ferro, PharmD 06/07/2025 1:00 PM EST Office Visit [facility] [address] [place] [address] Leobardo Aceves MD Hypertensive [...] kidney disease) stage 4, GFR 15-29 ml/min ([facility]) 06/07/2025 Travel from Last 3 Months Immunizations Immunization Administration Dates Next Due Influenza, High-dose, Split Virus, Trivalent, Injectable, preservative free 03/05/2025 Influenza, high-dose, quadrivalent 08/31/2023 Influenza, injectable, quadrivalent, preservativ e free 04/14/2020 [facility] COVID-19 Vaccine (Purple Cap) 12 + 12/03/2020,10/29/2020 [...] Description 09/25/2025 1:00 PM EDT Office Visit [facility] [address], [address] [place] [address] Jenelle Burt MD [address] [facility] [address] [place] [address] 11/01/2025 12:00 PM EDT Office Visit [facility] [address] [place] [address] Leobardo Aceves MD [address] [place] [address] Health Maintenance Due Date Last Done Comments [facility]-Bone Density Scan 1955 [facility]-Hepatitis C Screening 1955 [facility]-Medicare Annual Wellness (AWV) 1955 [facility]-/Child/Adol SDOH Screenings 1955 [facility]- SDOH Screenings 1973 [facility]-Adult SDOH Screenings 1973 CT Colonography 2000 Colonoscopy 2000 FIT-DNA 2000 FIT 2000 FOBT 2000 Sigmoidoscopy 2000 [facility]-Colorectal Cancer Screening 2000 Lung Cancer Screening Shared Decision Making 2005 [facility]-Breast Cancer Screening 2005 [facility]-Lung Cancer Screening 2005 [id number] Vaccine ( season) 2025 08/31/2023, 06/03/2021, 12/03/2020, [...] to complete this topic Insurance [place] [id number] [employer] Care Teams Scientist Electronics Relationship Specialty Start Date End Date Ayse Roth APRN [address] [place] [address] PCP - General 04/05/24
--- OUTSIDE RECORDS SUMMARY | 2025-07-12 14:12 | XMS_ITS | Encounter Summary ---
Author Organization [facility] Address [address] [place] [address] Care Team Providers Care Sales Manager [place] Name Role Phone Ayse Roth APRN Primary Care Provider [phone] Encounter Details Date Type Department Care Team ([facility] st Contact Info) Description 06/25/2025 Telephone [facility] Nephrology, Bone & Mineral Metabolism [address] [facility], [address] [place] [address] Aixa Ferro, PharmD [address] [place] [address] Social History Tobacco Use Types [...] & [facility] [address] [place] [address] documented in this encounter Plan of Treatment Upcoming Encounters Date Type Department Care Team (Late st Contact Info) Description 09/25/2025 1:00 PM EDT Office Visit [facility] [address], [address] [place] [address] Jenelle Burt MD [address] [place] [address] 11/01/2025 12:00 PM EDT Office Visit [facility] [address] [place] [address] Leobardo Aceves MD [address] [place] [address] documented as of this encounter Visit Diagnoses Not on filedocumented in this encounter Additional Health Concerns Assessment Noted Time A fall risk assessment has been complete d for the patient 10/08/2024 8:52 AM EDT A Body Mass Index follow-up plan has been documented for the patient 06/07/2025 1:20 PM EST documented as of this encounter Care Teams Sales Manager [place] Relationship Specialty Start Date End Date Ayse Roth APRN [address] [place] [address] PCP - General 04/05/24 documented as of this encounter
--- OUTSIDE RECORDS SUMMARY | 2025-07-12 14:12 | XMS_ITS | Encounter Summary ---
Author Organization [facility] Address [address] [place] [address] Care Team Providers Care Aerospace Manager Name Role Phone Rajiv Montoya MD Primary Care Provider [phone] Ayse Roth APRN Primary Care Provider [phone] Encounter Details Date Type Department Care Team (Late st Contact Info) Description 01/28/2023 Orders Only External Location [address] [place] [address] Provider, External Social History Tobacco Use Types [...] Care Clinic [address], [address] [place] [address] Jenelle Burt MD [address] [place] [address] 11/01/2025 12:00 PM EDT Office Visit [facility] [address] [place] [address] Leobardo Aceves MD [address] [place] [address] documented as of this encounter Procedures Procedure [...] on filedocumented in this encounter Care Teams Aerospace Manager Relationship Specialty [place] [address] PCP - General 11/28/20 04/04/24 Ayse Roth APRN [address] [place] [address] PCP - General 04/05/24 documented as of this encounter
--- OUTSIDE RECORDS SUMMARY | 2025-07-12 14:12 | XMS_ITS | Encounter Summary ---
Author Organization [facility] Address [address] [place] [address] Care Team Providers Care Technology Applications Teacher Name Role Phone Ayse Roth APRN Primary Care Provider [phone] Encounter Details Date Type Department Care Team [...] on file documented as of this encounter Functional Status * Communicable Disease Screening Question Answer Date of Assessment Author Have you been in contact wit h someone who was sick? No / Unsure 06/07/2025 10:03 AM Yuly Bennett Do you have any of the following new or worsening symptoms? None of these 06/07/2025 10:03 AM Katherine Bennett * Travel Screening Question Answer Date of Assessment Author Have you traveled internatio y[place] or domestically in the last month? No 06/07/2025 10:03 AM Katherine Etienne documented as of this encounter Mental Status * Communicable Disease Screening Question Answer Entry Date Author Have you been in contact wit h someone who was sick? No / Unsure 06/07/2025 10:03 AM Yuly Bennett Do you have any of the following new or worsening symptoms? None of these 06/07/2025 10:03 AM Katherine Bennett * Travel Screening Question Answer Entry Date Author Have you traveled internatio y[place] or domestically in the last month? No 06/07/2025 10:03 AM Katherine Etienne documented in this encounter Plan of Treatment Upcoming Encounters Date Type Department Care Team (Late st Contact Info) Description 09/25/2025 1:00 PM EDT Office Visit [email or web address] [address], [address] [place] [address] Jenelle Burt MD [address] [facility] [address] [place] [address] 11/01/2025 12:00 PM EDT Office Visit [facility] [address] [place] [address] Leobardo Aceves MD [address] [place] [address] documented as of this encounter Visit Diagnoses Not on filedocumented in this encounter Additional Health Concerns Assessment Noted Time A fall risk assessment has been complete d for the patient 10/08/2024 8:52 AM EDT A Body Mass Index follow-up plan has been documented for the patient 06/07/2025 1:20 PM EST documented as of this encounter Care Teams Technology Applications Teacher Relationship Specialty Start Date End Date Ayse Roth APRN [address] [place] [address] PCP - General 04/05/24 documented as of this encounter
--- OUTSIDE RECORDS SUMMARY | 2025-07-12 14:12 | XMS_ITS | Encounter Summary ---
Author Organization [facility] Address [address] [place] [address] Care Team Providers Care Installment Agent Name Role Phone Ayse Roth APRN Primary Care Provider [phone] Encounter Details Date Type Department Care Team ([facility] Contact Info) Description 07/05/2025 Telephone [facility] Nephrology, Bone & Mineral Metabolism [address] [facility] [facility], [address] [place] [address] Tye Bethea, PharmD None None Social History Tobacco Use Types Packs/Day Years Used Date Smoking Tobacco: Every Day Cigarettes 1 62 Started: 1964 Passive Smoke Exposure: Never Smokeless [...] Description 09/25/2025 1:00 PM EDT Office Visit [facility] [address], [address] [place] [address] Jenelle Burt MD [address] [place] [address] 11/01/2025 12:00 PM EDT Office Visit [facility] [address] [place] [address] Leobardo Aceves MD [address] [place] [address] documented as of this encounter Visit Diagnoses Not on filedocumented in this encounter Additional Health Concerns Assessment Noted Time A fall risk assessment has been complete d for the patient 10/08/2024 8:52 AM EDT A Body Mass Index follow-up plan has been documented for the patient 06/07/2025 1:20 PM EST documented as of this encounter Care Teams Installment Agent Relationship Specialty Start Date End Date Ayse Roth APRN [address] [place] [address] PCP - General 04/05/24 documented as of this encounter
[2025-07-12 15:52] LABS: Chloride 103 mmol/L (98-107)
[2025-07-12 15:53] LABS: Albumin Level 4.3 g/dl (3.5-5.0); Potassium 4.2 mmoL/L (3.5-5.1); Sodium 134 mmol/L (136-145)
[2025-07-12 15:55] LABS: Blood Urea Nitrogen 35 mg/dl (7-17); Creatinine,Serum 2.90 mg/dl (0.52-1.04); Estimated Glomerular Filt Rate 16 ml/min (>60); GFR (African American) 19 ML/MIN (>60)
[2025-07-12 15:56] LABS: Anion Gap 15.2 mEq/L (5-15); Calcium 10.5 mg/dl (8.4-10.2); Carbon Dioxide 20 mmol/L (22.0-30.0); Glucose 107 mg/dl (74-100); Phosphorous 3.6 mg/dl (2.5-4.5)
== END 2025-07-12 23:59 | disposition home or self-care (01) ==
LOC: LAB 14:10
PROVIDERS: PCP Physician Assistant; Visit Provider Student in an Organized Health Care Education/Training Program
DX: N18.32 Chronic kidney disease, stage 3b (principal); E87.5 Hyperkalemia
CPT/HCPCS: 36415; 80069